=== PATIENT | female | born 1990 | race African-American/Black ===

== ENCOUNTER 2016-08-23 20:13 | Outpatient (CLI) | payer OTHER ==
[~2016-08-23] VITALS: Ht 162.6 cm; Wt 87.0 kg
[~2016-08-23 20:13] MED LIST: ALBINS/ NEB; CLR10 PO; EPP3/2 IM; PRED20TA PO; PRENTAB26 PO; PRT/40 PO; RANI150T3 PO; SNG10 PO; SYMIN160 INH; VNTHFA/IN INH
--- NOTE | 2016-08-23 21:31 | Progress Note ---
Progress Note Observation Note 26 F P0101 at 33.3 weeks with history of irregular contractions all day today. She is afebrile with normal vitals and no shortness of breath or any chest pain. She was recently seen here 08/06/16 and sent to [place] where both her and her baby had RSV. She has history of pre-term delivery and with last due to acute asthma exacerbation and non-reassuring FHT at that time with no premature contractions. She is not on Gabriela protocol. Today admits to loose formed stools with good appetite and no nausea or vomiting. No leakage of fluid or any bleeding noted. Abdomen is soft and non-tender. FHT Cat 1. No RUQ or any abdominal pain with palpations. No edema or calf pain. Cervix long/closed and thick. Probable uterine irritability. Urine dips negative. Will d/c home. Patient to continue fluid hydration and to keep on her side when in bed.
[2016-08-23 22:23] VITALS: Ht 162.6 cm; Wt 87.0 kg
[2016-12-25] MEDS ORDERED: PRT/40 PO (19:05)
[2017-02-25] MEDS ORDERED: albuterol inhaler INH (08:12)
== END 2016-08-23 22:15 | disposition home or self-care (01) ==
LOC: C.OPB 20:13 → C.LD 20:14 → C.OPB 22:15
PROVIDERS: ATTEND Obstetrics & Gynecology
DX: O62.9 Abnormality of forces of labor, unspecified (principal); Z3A.33 33 weeks gestation of pregnancy

== ENCOUNTER 2016-09-03 23:32 | Emergency (ER) | payer OTHER ==
[~2016-09-03] VITALS: Ht 165.1 cm; Wt 88.9 kg
[2016-09-03 23:42] VITALS: TEMP 37.1; Ht 165.1 cm; Wt 88.9 kg
[2016-09-04] MEDS ORDERED: MAGNESIUM SULFATE 1GM / D5W 1 GM BAG IV STA ×2 (00:25→00:40)
[2016-09-04] MEDS ORDERED: SODIUM CHLORIDE 0.9% 1000ML 1,000 ML IV ONE (00:30)
[2016-09-04] MEDS ORDERED: ALBUT/IPRATROP 3MG/0.5MG NEB 3 ML VIAL INH ONE (00:30)
[2016-09-04] MEDS ORDERED: METHYLPREDNISOLONE 125 MG VIAL IV STA (00:40)
[2016-09-04 00:44] VITALS: PULSE 84; O2SAT 98
[2016-09-04 01:00] LABS: BASO % 0.2 %; BASO ABS # 0.01 K/uL (0-0.2); COMPLETE YES; EOS % 2.5 %; HEMATOCRIT 31.3 % (37-47); IG% 0.3 %; LYMPH % 28.8 %; LYMPH ABS # 1.74 K/uL (1.2-3.4); MEAN CELL VOLUME 81.5 fL (80-100); MEAN CORPUSCULAR HEMOGLOBIN 27.3 pg (25-34); MEAN CORPUSCULAR HGB CONC 33.5 g/dl (32-36); MEAN PLATELET VOLUME 9.2 fL (7.4-10.4); MONO % 9.6 %; NEUT % 58.6 %; PLATELET COUNT 233 K/uL (130-400); RED BLOOD COUNT 3.84 M/uL (4.2-5.4); WHITE BLOOD COUNT 6.04 K/uL (4.8-10.8)
[2016-09-04 01:03] LABS: VEN BLD GAS O2 SATURATION 91.8 %; VEN BLOOD GAS BASE EXCESS -1.1 mmol/L
[2016-09-04 01:21] LABS: BUN/CREATININE RATIO 12.1 (10-20); CALCIUM 8.7 mg/dl (8.5-10.1); CREATININE 0.62 mg/dl (0.60-1.20); POTASSIUM 3.5 mmol/L (3.5-5.1)
[2016-09-04 01:24] LABS: ALB/GLOB RATIO 0.8 (0.9-2)
[2016-09-04 01:43] VITALS: BP 109/50; PULSE 84; O2SAT 99
--- NOTE | 2016-09-04 06:34 | DIAGNOSTIC IMAGING REPORT ---
CHEST 2 VIEWS ROUTINE CLINICAL HISTORY: Asthma. . COMPARISON STUDY: Chest radiograph August 05, 2016. TECHNIQUE: The patient's abdomen and pelvis were double shielded due to . PA and lateral chest radiographs were obtained. FINDINGS: Lung volumes are at the lower limits of normal. No pneumothorax or pleural effusion is identified. No consolidation is identified. Mild interstitial prominence is likely within normal limits. Cardiac size is at the upper limits of normal. IMPRESSION: 1. No areas of consolidation to suggest pneumonia. 2. Top normal cardiac size. Electronically signed by: Yair Acharya M.D. 09/04/2016 6:33 AM Dictated Date/Time: 09/04/2016 6:31 AM
--- NOTE | 2016-09-04 22:15 | EMERGENCY ROOM VISIT NOTE ---
History First contact with patient: 00:13 Chief Complaint: COUGH Stated Complaint: ASTHMA,SOB,35WKS PREG,REDUCED MVMT,CALLED LD Nursing Triage Summary: Patient presents with c/o sorethroat, non-productive cough, and runny nose that began 2 days ago. History of Present Illness The patient is a 26 year old female who presents to the Emergency Room with complaints of asthma exacerbation that began to worsen about 2 days ago. The patient has a history of severe asthma, and she is currently 35 weeks . She has been hospitalized at this facility twice during this for asthma exacerbations. She was also transferred to [facility], where she was admitted for around 10 days during the . The patient states that she does have a mild sore throat and her cough is nonproductive. She has been using her inhalers at home without significant improvement of symptoms. She rates her discomfort a 7/10. This is not the worst that her asthma has been , but she is concerned because of her recent history with this. She has used steroids throughout the , but does not have any at home currently. Evidently she has an ATOMIC PROCESS ENGINEER follow-up appointment in about 9 hours in [place]. She does not fever or chills. No abdominal pain, vaginal drainage, discharge , or bleeding. Additionally, the patient was seen, in part, during a [facility] downtime. Additional information for this visit may be noted in scan documents or nursing notes. Review of Systems More than 10 systems were reviewed and otherwise negative with the exception of history of present illness. Past Medical/Surgical History Medical Problems: (1) Asthma, moderate persistent (2) uterine contractions in third trimester, antepartum Surgical Problems: (1) History of Amadou fundoplication Family History FH: lupus MOTHER Social History Smoking Status: Never Smoker Alcohol Use: none Marital Status: Housing Status: lives with roommate Occupation Status: student Current/Historical Medications Scheduled Budesonide/Formoterol Fumarate (Symbicort 160/4.5 Inhaler), 2 PUFFS INH BID Loratadine (Claritin), 10 MG PO DAILY Montelukast Sod (Montelukast Sodium), 10 MG PO HS Multivit/Min/Iron/Fol Ac/Pren ( Vitamin), 1 TAB PO DAILY Pantoprazole (Pantoprazole Sodium), 40 MG PO DAILY Ranitidine Hcl (Zantac), 1 TAB PO BID Scheduled PRN Albuterol Hfa (Ventolin Hfa), 2 PUFFS INH Q4H PRN for Wheezing Albuterol Sulf (Proventil 0.083% 2.5MG/3ML), 1 VIAL NEB Q4H PRN for Wheezing Epinephrine (Epipen 2-Renan), 0.3 MG IM UD PRN for ALLERGIC REACTION Allergies Coded Allergies: Sulfa Drugs (Verified Allergy, Unknown, ., 08/05/16) Sulfamethoxazole w/Trimethoprim (Verified Allergy, Unknown, ., 08/05/16) Physical Exam Vital Signs Date Time Temp Pulse Resp B/P Pulse Ox O2 Delivery O2 Flow Rate FiO2 09/04/16 01:43 84 20 109/50 99 Nebulizer 09/04/16 00:44 84 18 98 Nasal Cannula 2.0 09/03/16 23:47 96 Room Air 09/03/16 23:42 37.1 103 18 107/69 97 Room Air 09/03/16 23:42 96 Room Air Physical Exam VITALS: Vitals are noted on the nurse's note and reviewed by myself. Vital signs stable. GENERAL: Well-developed, well-nourished, black female who is with a dry nonproductive cough. Patient is cooperative with the examination. HEAD: Normocephalic atraumatic. EARS: External ear normal. External auditory canals clear, tympanic membranes pearly ledesma without erythema or effusion bilaterally. EYES: Pupils equal round and reactive to light and accommodation. Conjunctivae without injection, sclerae without icterus. Extraocular movements intact. NOSE: Patent, turbinates without inflammation or discharge. MOUTH: Mucous membranes moist. Tonsils are not enlarged. Pharynx without erythema, blood, or exudate. Uvula midline. Airway patent. NECK: Supple without nuchal rigidity. No lymphadenopathy. No thyromegaly. Cervical spine is nontender. HEART: Regular rate and rhythm without murmurs gallops or rubs. LUNGS: Tight breath sounds bilaterally with scant wheezing ABDOMEN: Positive normal bowel sounds x 4. Soft and nontender. Abdomen is consistent with a 35 week . MUSCULOSKELETAL: No muscle atrophy, erythema, or edema noted. Full range of motion without joint tenderness in all extremities. Medical Decision & Procedures ER Provider Diagnostic Interpretation: CHEST 2 VIEWS ROUTINE CLINICAL HISTORY: Asthma. . COMPARISON STUDY: Chest radiograph August 05, 2016. TECHNIQUE: The patient's abdomen and pelvis were double shielded due to . PA and lateral chest radiographs were obtained. FINDINGS: Lung volumes are at the lower limits of normal. No pneumothorax or pleural effusion is identified. No consolidation is identified. Mild interstitial prominence is likely within normal limits. Cardiac size is at the upper limits of normal. IMPRESSION: 1. No areas of consolidation to suggest pneumonia. 2. Top normal cardiac size. Laboratory Results 09/04/16 00:49 Red Blood Count 3.84, Mean Corpuscular Volume 81.5, Mean Corpuscular Hemoglobin 27.3, Mean Corpuscular Hemoglobin Concent 33.5, Mean Platelet Volume 9.2, Neutrophils (%) (Auto) 58.6, Lymphocytes (%) (Auto) 28.8, Monocytes (%) (Auto) 9.6, Eosinophils (%) (Auto) 2.5, Basophils (%) (Auto) 0.2, Neutrophils # (Auto) 3.54, Lymphocytes # (Auto) 1.74, Monocytes # (Auto) 0.58, Eosinophils # (Auto) 0.15, Basophils # (Auto) 0.01 09/04/16 00:49 Test 09/04/16 00:49 White Blood Count 6.04 K/uL (4.8-10.8) Red Blood Count 3.84 M/uL (4.2-5.4) Hemoglobin 10.5 g/dL (12.0-16.0) Hematocrit 31.3 % (37-47) Mean Corpuscular Volume 81.5 fL (80-100) Mean Corpuscular Hemoglobin 27.3 pg (25-34) Mean Corpuscular Hemoglobin Concent 33.5 g/dl (32-36) Platelet Count 233 K/uL (130-400) Mean Platelet Volume 9.2 fL (7.4-10.4) Neutrophils (%) (Auto) 58.6 % Lymphocytes (%) (Auto) 28.8 % Monocytes (%) (Auto) 9.6 % Eosinophils (%) (Auto) 2.5 % Basophils (%) (Auto) 0.2 % Neutrophils # (Auto) 3.54 K/uL (1.4-6.5) Lymphocytes # (Auto) 1.74 K/uL (1.2-3.4) Monocytes # (Auto) 0.58 K/uL (0.11-0.59) Eosinophils # (Auto) 0.15 K/uL (0-0.5) Basophils # (Auto) 0.01 K/uL (0-0.2) RDW Standard Deviation 51.7 fL (36.4-46.3) RDW Coefficient of Variation 17.1 % (11.5-14.5) Immature Granulocyte % (Auto) 0.3 % Immature Granulocyte # (Auto) 0.02 K/uL (0.00-0.02) Venous Blood pH 7.42 (7.36-7.41) Venous Blood Partial Pressure CO2 37 mmHg (38.0-50.0) Venous Blood Partial Pressure O2 68 mmHg Venous Blood HCO3 23 mmol/L Venous Blood Oxygen Saturation 91.8 % Venous Blood Base Excess -1.1 mmol/L Anion Gap 12.0 mmol/L (3-11) Est Creatinine Clear Calc Drug Dose 152.8 ml/min Estimated GFR () 145.3 Estimated GFR (Non- 125.3 BUN/Creatinine Ratio 12.1 (10-20) Calcium Level 8.7 mg/dl (8.5-10.1) Total Bilirubin 0.2 mg/dl (0.2-1) Aspartate Amino Transf (AST/SGOT) 10 U/L (15-37) Alanine Aminotransferase (ALT/SGPT) 18 U/L (12-78) Alkaline Phosphatase 93 U/L (45-117) Total Protein 6.3 gm/dl (6.4-8.2) Albumin 2.7 gm/dl (3.4-5.0) Globulin 3.6 gm/dl (2.5-4.0) Albumin/Globulin Ratio 0.8 (0.9-2) Medications Administered Medications (Trade) Dose Ordered Sig/Cheryl Route Start Time Stop Time Status Last Admin Dose Admin Sodium Chloride (Nss 1000ml) 1,000 ml @ 999 mls/hr Q1H1M ONCE IV 09/04/16 00:30 09/04/16 01:30 DC 09/04/16 01:02 999 MLS/HR Albuterol/ Ipratropium (Duoneb) 12 ml NOW ONCE INH 09/04/16 00:30 09/04/16 00:31 DC 09/04/16 00:43 12 ML Magnesium Sulfate (Magnesium Sulfate) 1 gm NOW STAT IV 1/26/17 00:40 09/04/16 00:41 DC 09/04/16 01:01 1 GM Methylprednisolone Sodium Succinate (Solu-Medrol IV) 125 mg NOW STAT IV 09/04/16 00:40 09/04/16 00:41 DC 09/04/16 01:02 125 MG ED Course Physical exam and history were performed. Nursing notes and EMR were reviewed. Patient appears to have an acute asthma exacerbation in the third trimester. She has had similar symptoms in the past. She is on nasal cannula on presentation to the room, which is maintaining her saturation around 95%. IV access was established and labs were obtained. The patient was given an hour- long DuoNeb, 125 mg IV Solu-Medrol, and 1 g magnesium IV. The patient was placed on a cardiac cath rn. Chest x-ray was performed. heart tones were performed, and were 145 beats per minute. The patient's blood work is as above and was reviewed. She does not have a significantly elevated white blood cell count. She is mildly anemic, however this is likely due to her status. She does not have a significant electrolyte imbalance. Transaminases are nondiagnostic. VBG was performed and is essentially normal. Chest x-ray does not show acute findings. The patient was reevaluated multiple times throughout her stay here in the department. She had significant improvement of her breath sounds on auscultation following steroids and breathing treatment. The patient was able to sleep comfortably in her ER bed for a few hours without persistent coughing. She was able to maintain an O2 saturation of around 93 or 94% while sleeping. When I awoke her to discuss her results, she was able to maintain a saturation of around 97 or 98% without persisting coughing on room air. We discussed options of care at this point, and decided that discharge home was appropriate. The patient has an ATOMIC PROCESS ENGINEER appointment in a few hours, and evidently she states the fetus growth is significantly below what the expected growth should be at 35 weeks. She is seeing a specialist this morning for multiple tests, which overall I feel are important for her and the child's well- being. I do not wish for her to miss this appointment. I explained that she should keep this appointment, and if OB felt it was appropriate to start her on steroids that would be reasonable. The patient did express a desire to keep this appointment as well, and feels this is reasonable. The patient did feel better while under our care, and was otherwise invited back to the ER with any new, worsening, or concerning symptoms. The chart was completed utilizing [employer] Speech Voice Recognition Software. Grammatical errors, random word insertions, pronoun errors, and incomplete sentences are an occasional consequence of this system due to software limitations, ambient noise, and hardware issues. Any formal questions or concerns about the content, text, or information contained within the body of this dictation should be directly addressed to the provider for clarification. . Medical Decision Differential diagnosis: Etiologies such as infections, reactive airway disease, pneumonia, pneumothorax , COPD, CHF, cardiac ischemia, pulmonary embolism, musculoskeletal, gastrointestinal, as well as others were entertained. Impression Primary Impression: Asthma with acute exacerbation in adult Additional Impression: Third trimester at less than 36 weeks Departure Information Dispostion Home / Self-Care Condition FAIR Referrals Lynette Jorge D.O. (PCP) Forms HOME CARE DOCUMENTATION FORM, IMPORTANT VISIT INFORMATION Patient Instructions My [facility] Problem Qualifiers
[2016-12-25] MEDS ORDERED: PRT/40 PO (19:05)
[2017-02-25] MEDS ORDERED: albuterol inhaler INH (08:12)
== END 2016-09-04 04:25 | disposition home or self-care (01) ==
LOC: C.EDB 23:33
DX: J45.41 Moderate persistent asthma with (acute) exacerbation (principal); O99.513 Diseases of the respiratory system complicating pregnancy, third trimester; Z3A.35 35 weeks gestation of pregnancy

== ENCOUNTER 2016-09-18 17:45 | Outpatient (CLI) | payer OTHER ==
[~2016-09-18] VITALS: Ht 165.1 cm; Wt 86.1 kg
[~2016-09-18 17:45] MED LIST changes: -PRED20TA PO
--- NOTE | 2016-09-18 18:43 | Discharge Instructions ---
Discharge Instructions Admission Reason for Admission: Check Labor Discharge Discharge Diagnosis / Problem: not in labor Discharge Goals Goal(s): Continuing OB care Medications Continue Dispensed Medications: inhaler Activity Recommendations Activity Limitations: as noted below Lifting Limitations: no more than 10 pounds Exercise/Sports Limitations: none May Resume Sexual Activity: when tolerated Shower/Bathe: no limitations Driving or Machine Use: no limitations . Instructions / Follow-Up Instructions / Follow-Up follow up in 1 week Current Hospital Diet Patient's current hospital diet: Full Liquid Diet Discharge Diet Recommended Diet: Regular Diet, Regular OB Diet Pending Studies Studies pending at discharge: no Medical Emergencies . Who to Call and When: Medical Emergencies: If at any time you feel your situation is an emergency, please call 911 immediately. . Non-Emergent Contact Non-Emergency issues call your: Primary Care Provider . . "Provider Documentation" section prepared by Leonardo Gallegos. VTE Core Measure Inpt VTE Proph given/why not?: Treatment not indicated
--- NOTE | 2016-09-18 18:46 | Progress Note ---
Progress Note Here for prolonged monitoring from office. Has asthma and lost her meds. Stable with Cat 1 FHT. Will discharge home. Follow up in 1 week or if any contractions.
--- NOTE | 2016-09-18 18:56 | Discharge Instructions ---
Discharge Instructions Admission Reason for Admission: Check Labor Discharge Discharge Diagnosis / Problem: prolonged monitoring Discharge Goals Goal(s): Improve disease control Activity Recommendations Activity Limitations: resume your previous activity Lifting Limitations: no more than 10 pounds Exercise/Sports Limitations: none, as tolerated May Resume Sexual Activity: when tolerated Shower/Bathe: no limitations Driving or Machine Use: no limitations . Instructions / Follow-Up Instructions / Follow-Up . ACTIVITY RECOMMENDATIONS: * Vaginal rest (no tampons, douching, intercourse) until after doctor 's visit. * control as discussed with doctor. * Wear a bra for 24 hours/day for comfort. SPECIAL CARE INSTRUCTIONS: Medications: * vitamins, one tablet daily. Continue taking until prescription is complete. Call you doctor if: * Temperature greater than or equal to 100.4 degrees F or 38.0 degrees C. * Bleeding becomes heavier than the heaviest part of your period - saturating a sanitary pad within an hour. * Passing large clots. * Unrelieved pain. * Bleeding has a foul smelling odor. * Signs and symptoms of phlebitis: leg pain, warm, red or swollen area on leg. incision has increased pain, redness, swelling, presence of any drainage, or if the incision starts to open up. FOLLOW UP VISIT: If appointment is not already scheduled: Please call doctor's office to schedule a follow-up appointment. Please call your PCP tomorrow AM to get asthma meds refilled. Current Hospital Diet Patient's current hospital diet: Full Liquid Diet Discahrge Diet Recommended Diet: Regular OB Diet Pending Studies Studies pending at discharge: no Medical Emergencies . Who to Call and When: Medical Emergencies: If at any time you feel your situation is an emergency, please call 911 immediately. . Non-Emergent Contact Non-Emergency issues call your: Primary Care Provider . . "Provider Documentation" section prepared by Leonardo Gallegos. VTE Core Measure Inpt VTE Proph given/why not?: Treatment not indicated
[2016-09-18 19:32] VITALS: Ht 165.1 cm; Wt 86.1 kg
[2016-12-25] MEDS ORDERED: PRT/40 PO (19:05)
[2017-02-25] MEDS ORDERED: albuterol inhaler INH (08:12)
== END 2016-09-18 19:20 | disposition home or self-care (01) ==
LOC: C.OPB 17:45 → C.LD 17:45 → C.OPB 19:20
PROVIDERS: ATTEND Obstetrics & Gynecology
DX: Z34.83 Encounter for supervision of other normal pregnancy, third trimester (principal)

== ENCOUNTER 2016-12-25 18:20 | Emergency (ER) | payer OTHER ==
[~2016-12-25] VITALS: Ht 165.1 cm; Wt 80.5 kg
[2016-12-25 18:31] VITALS: TEMP 37.1; Ht 165.1 cm; Wt 80.5 kg
[2016-12-25] MEDS ORDERED: PRENTAB26 PO (19:05)
[2016-12-25] MEDS ORDERED: PANT40TA2 PO (19:05)
[2016-12-25] MEDS ORDERED: RANI150C4 PO (19:05)
[2016-12-25] MEDS ORDERED: MONT1TAB3 PO (19:05)
[2016-12-25] MEDS ORDERED: CALC500T85 PO (19:06)
[2016-12-25] MEDS ORDERED: IBUP-1428 PO (19:10)
--- NOTE | 2016-12-25 21:03 | DIAGNOSTIC IMAGING REPORT ---
PELVIC ULTRASOUND, TRANSABDOMINAL AND TRANSVAGINAL HISTORY: Pain pelvic pain 4 days post IUD placement. Sent for US by Paralegal Specialist COMPARISON: None. FINDINGS: Uterus: Midline with a maximum dimension 9.6 cm. Endometrial thickness 1.4 cm. Intrauterine device is appears to be within the central canal. Endometrial stripe: 1.4 cm. Intrauterine device located centrally Right ovary: 4.1 cm including a 1.4 cm cyst Left ovary: 3.4 cm maximum dimension with a 1.9 cm cyst Miscellaneous:No pelvic free fluid. IMPRESSION: Small bilateral ovarian cysts. Intrauterine device within the central canal, although perhaps slightly low-lying. Electronically signed by: Francisco Jackson M.D. 12/25/2016 9:02 PM Dictated Date/Time: 12/25/2016 9:00 PM
[2016-12-25 21:15] VITALS: BP 109/64; PULSE 68; O2SAT 98
--- NOTE | 2016-12-25 21:25 | EMERGENCY ROOM VISIT NOTE ---
History Report prepared by Arya: Lauryn Alvares Under the Supervision of: Dr. Win Villalobos M.D. First contact with patient: 18:35 Chief Complaint: PELVIC PAIN Stated Complaint: UTERINE PAIN, IUD INSERTION X4 DAYS AGO. History of Present Illness The patient is a 26 year old female who presents to the Emergency Room with complaints of constant pelvic pain since yesterday. The patient had an IUD placed 3 days ago. Yesterday she developed suprapubic pain that she describes as sharp and "really uncomfortable." Her pain rates into her back. She rates her pain as a 4/10 in severity. She has been experiencing normal spotting. The patient has also been getting lightheaded and experiencing a headache. She called her ob-director of video analytics and was advised to come in to the office immediately. The patient was unable to leave work, so she was advised to come to the ED after work for further evaluation. She has been taking Tylenol and Motrin for pain. The patient denies fevers and vomiting. Source of History: patient Onset: yesterday Position: pelvis Symptom Intensity: 4/10 Quality: sharp Timing: constant Modifying Factors (Worsening): other (recent IUD placement) Modifying Factors (Relieving): tylenol, ibuprofen Associated Symptoms: + back pain, + headache, No fevers, No vomiting Note: Pt notes lightheadedness. Review of Systems See HPI for pertinent positives & negatives. A total of 6 systems reviewed and were otherwise negative. Past Medical & Surgical Medical Problems: (1) Asthma, moderate persistent (2) uterine contractions in third trimester, antepartum Surgical Problems: (1) History of Amadou fundoplication Family History FH: lupus MOTHER Social History Smoking Status: Never Smoker Alcohol Use: none Marital Status: Housing Status: lives with roommate Occupation Status: student Current/Historical Medications Scheduled Calcium (Ra Calcium), 500 MG PO DAILY Montelukast Sodium (Singulair), 10 MG PO QAM Multivit/Min/Iron/Fol Ac/Pren ( Vitamin), 1 TAB PO DAILY Pantoprazole (Pantoprazole Sodium), 40 MG PO DAILY Ranitidine Hcl (Ranitidine Hcl), 150 MG PO QAM Scheduled PRN Ibuprofen (Motrin), 800 MG PO Q8H PRN for Pain Allergies Coded Allergies: Sulfa Drugs (Verified Allergy, Unknown, HIVES, 12/25/16) Sulfamethoxazole w/Trimethoprim (Verified Allergy, Unknown, HIVES, 12/25/16 ) Physical Exam Vital Signs Date Time Temp Pulse Resp B/P Pulse Ox O2 Delivery O2 Flow Rate FiO2 12/25/16 21:15 68 18 109/64 98 Room Air 12/25/16 18:31 37.1 82 20 117/70 99 Room Air Physical Exam GENERAL: Patient is well appearing and in mild distress. NECK: No stridor, no adenopathy, no meningismus, trachea is midline. LUNGS: No dyspnea. Clear to auscultation and equal bilaterally. No wheeze, no rhonchi. HEART: Regular rate and rhythm. No murmurs, rubs, gallops appreciated. ABDOMEN: Soft, vague suprapubic abdominal tenderness to palpation, bowel sounds positive, no masses appreciated, no peritonitis. PELVIC: Normal external. Scant white discharge posterior vaginal canal, no discharge appreciated from cervix, strings intact from cervix. No cervical motion tenderness. BACK: No midline tenderness, no CVA tenderness EXTREMITIES: Normal motion all extremities, no cyanosis, no edema. NEUROLOGIC: Alert and oriented, no acute motor or sensory deficits, no focal weakness, cranial nerves grossly intact. SKIN: No rash, no jaundice, no diaphoresis. Medical Decision & Procedures ER Provider Diagnostic Interpretation: Radiology results and stated below per my review and radiologist interpretation: PELVIC ULTRASOUND, TRANSABDOMINAL AND TRANSVAGINAL HISTORY: Pain pelvic pain 4 days post IUD placement. Sent for US by Facialist COMPARISON: None. FINDINGS: Uterus: Midline with a maximum dimension 9.6 cm. Endometrial thickness 1.4 cm. Intrauterine device is appears to be within the central canal. Endometrial stripe: 1.4 cm. Intrauterine device located centrally Right ovary: 4.1 cm including a 1.4 cm cyst Left ovary: 3.4 cm maximum dimension with a 1.9 cm cyst Miscellaneous:No pelvic free fluid. IMPRESSION: Small bilateral ovarian cysts. Intrauterine device within the central canal, although perhaps slightly low-lying. Electronically signed by: Francisco Jackson M.D. 12/25/2016 9:02 PM Dictated Date/Time: 12/25/2016 9:00 PM ED Course 1835: The patient was evaluated in room A2. A complete history and physical exam was performed. 1937: I reassessed the patient. She had returned from ultrasound and I performed a pelvic exam. Please see the procedure note for my findings. 2118: I reassessed the patient at this time. She is feeling better and resting comfortably. I discussed the results and treatment plan with the patient. I answered all pertaining questions that she had. She expressed understanding and verbalized agreement. The patient will be discharged home. She will follow-up with ob-director of video analytics in the next few days. Medical Decision Differential: Appendicitis, Ovarian Torsion, PID, Tubo-ovarian Abscess, IUD pain /misplacement, amongst other pathologies entertained. 26 yr old female arrives with complaint of pelvic pain radiating to back. Exam with some mild white non-malodorous discharge. Suspect this is mild reaction/ normal as no erythema either. Not coming from Cervix by examination. She has no CMT nor evidence of acute infection. US with IUD in proper position other than possibly a bit low. Without fevers nor other findings I do not feel that imaging necessary currently. Impression Primary Impression: Pain due to intrauterine contraceptive device (IUD) Scribe Attestation The scribe's documentation has been prepared under my direction and personally reviewed by me in its entirety. I confirm that the note above accurately reflects all work, treatment, procedures, and medical decision making performed by me. Departure Information Dispostion Home / Self-Care Referrals Lynette Jorge D.O. (PCP) Forms HOME CARE DOCUMENTATION FORM, IMPORTANT VISIT INFORMATION, WORK / SCHOOL INSTRUCTIONS Patient Instructions My [facility] Additional Instructions Monitor for worsening of pain, fevers, vomiting, passing out or other concerns. Please follow up with INFANT TEACHER in the next few days. Problem Qualifiers Primary Impression: Pain due to intrauterine contraceptive device (IUD) Encounter type: initial encounter Qualified Codes: T83.84XA - Pain due to genitourinary prosthetic devices, implants and grafts, initial encounter
[2017-02-25] MEDS ORDERED: albuterol inhaler INH (08:12)
== END 2016-12-25 21:39 | disposition home or self-care (01) ==
LOC: C.EDB 18:21 → C.EDA 21:39
DX: T83.84XA Pain due to genitourinary prosthetic devices, implants and grafts, initial encounter (principal); Y83.1 Surgical operation with implant of artificial internal device as the cause of abnormal reaction of the patient, or of later complication, without mention of misadventure at the time of the procedure; J45.40 Moderate persistent asthma, uncomplicated

== ENCOUNTER 2017-02-12 22:35 | Emergency (ER) | payer OTHER ==
[~2017-02-12] VITALS: Ht 165.1 cm; Wt 81.6 kg
[~2017-02-12 22:35] MED LIST changes: -ALBINS/ NEB; +CALC500T85 PO; -CLR10 PO; -EPP3/2 IM; +IBUP-1428 PO; +MONT1TAB3 PO; +RANI150C4 PO; -RANI150T3 PO; -SNG10 PO; -SYMIN160 INH; -VNTHFA/IN INH
[2017-02-12 22:38] VITALS: TEMP 36.8; Ht 165.1 cm; Wt 81.6 kg
[2017-02-12] MEDS ORDERED: FENU1CAP2 PO (23:13)
[2017-02-12] MEDS ORDERED: ACETAMINOPHEN 500 MG TAB PO STA (23:22)
--- NOTE | 2017-02-12 23:22 | EMERGENCY ROOM VISIT NOTE ---
History Report prepared by Arya: Jeovanny Hamilton Under the Supervision of: Dr. Gladys Stevens D.O. First contact with patient: 22:59 Chief Complaint: SYNCOPE Stated Complaint: FAINTING, SPRAINED LEFT ANKLE Nursing Triage Summary: Patient presents with c/o left ankle pain after twisting it this morning and syncopal episode x1 and near syncopal episode x2 History of Present Illness The patient is a 26 year old female who presents to the Emergency Room with complaints of one episode of syncope that occurred this morning. At this time, she states that she "twisted" her left ankle when she was walking down a hill to catch the bus. After she inverted her left ankle, she fell to the ground and scraped her knees. About 20 seconds later, she was sitting on the ground when her vision went black. She lost consciousness for what she thinks was less than 1 minute. After this, she felt relatively normal. She then experienced two episodes of near syncope that occurred throughout her day, with the most recent one being a couple of hours ago. She notes that she did eat and drink normally today. She also states she did not do anything abnormal as well. She has a past medical history of asthma. She has two children. She is currently breast feeding one of them. She states that there is no chance that she is . She also notes that she has been having cognitive symptoms that she was supposed to see her PCP about last weekend, but did not have a ride. She states that these include being forgetful with mediocre tasks such as why she got milk out of the fridge, an occasional stutter to her voice, and loss of depth perception. She also states that she could not focus when tried to drive. She does not know when all of these started, but noticed it a couple of days ago. She denies any fevers. Source of History: patient Onset: This morning Position: other (global) Symptom Intensity: moderate Quality: other (syncope) Timing: resolved Associated Symptoms: No fevers Note: She is having left ankle pain. She is also having several cognitive symptoms ( See HPI for more information). Review of Systems See HPI for pertinent positives & negatives. A total of 10 systems reviewed and were otherwise negative. Past Medical & Surgical Medical Problems: (1) Asthma, moderate persistent (2) uterine contractions in third trimester, antepartum Surgical Problems: (1) History of Amadou fundoplication Family History Cancer Diabetes mellitus FH: lupus MOTHER Heart disease Hypertension Social History Smoking Status: Never Smoker Smokeless Tobacco Use: No Alcohol Use: none Drug Use: none Marital Status: Housing Status: lives with family Occupation Status: employed Current/Historical Medications Scheduled Fenugreek (Trigonella Foenum-G (Fenugreek), 1 CAP PO DAILY Multivit/Min/Iron/Fol Ac/Pren ( Vitamin), 1 TAB PO DAILY Allergies Coded Allergies: Sulfa Drugs (Verified Allergy, Unknown, HIVES, 02/12/17) Sulfamethoxazole w/Trimethoprim (Verified Allergy, Unknown, HIVES, 02/12/17) Physical Exam Vital Signs Date Time Temp Pulse Resp B/P (MAP) Pulse Ox O2 Delivery O2 Flow Rate FiO2 02/13/17 03:12 59 16 107/69 98 02/13/17 01:18 68 16 122/74 100 Room Air 02/12/17 23:34 65 02/12/17 23:34 66 18 128/75 99 Room Air 02/12/17 23:23 99 Room Air 02/12/17 22:38 36.8 70 16 115/57 98 Room Air Physical Exam HEENT: Head - normocephalic and atraumatic. Pupils are equal, round, and reactive to light. Extraocular eye muscles are intact and sclera are anicteric. Ears - bilaterally patent canals with noninjected tympanic membranes and no evidence of hemotympanum. Nose - moist nasal mucosa without discharge. Mouth - moist buccal mucosa. Oropharynx is nonerythematous and there is no tonsillar exudate or edema noted. Neck: Supple; no JVD, nuchal rigidity, cervical lymphadenopathy, or auscultated bruits. Heart: Regular rate and rhythm. There is a normal S1 and S2 with no murmurs, clicks, or gallops appreciated. Lungs: Clear to auscultation bilaterally with no wheezes, rales, or rhonchi. Abdomen: Soft, completely nontender, nondistended, with good bowel sounds. There are no palpable pulsatile masses or hepatosplenomegaly. There is no guarding, rigidity, or rebound noted. Extremities: No evidence of cyanosis or clubbing. There are easily palpable peripheral pulses. There is pain over the inferior aspect of the lateral malleolus with edema in the same area on the left foot. No pain over the fifth metatarsal. Neuro: The patient is awake and alert, oriented to day, time, and place. Muscle strength is 5/5 in all 4 extremities. The patient has equal track coach strength and equal pedal push and pull. There are no cerebellar signs. Medical Decision & Procedures ER Provider Diagnostic Interpretation: Radiology results as stated below per my review and the radiologist's interpretation: X-RAY LEFT ANKLE: No obvious fracture. Ankle mortis intact. Per me. MRI HEAD: Moderate scattered subcortical and deep white matter T2/FLAIR hyperintensities, nonspecific but differential includes demyelinating disease. Evaluation for active demyelination limited by lack of intravenous contrast. No diffusion restriction. 5 mm pineal cystic lesion. Otherwise, no evidence of mass. No mass effect. No hydrocephalus. Mild mucosal thickening ethmoid air cells. Radiologist: Win Moore MD Laboratory Results 02/12/17 23:30 Red Blood Count 4.81, Mean Corpuscular Volume 85.0, Mean Corpuscular Hemoglobin 29.1, Mean Corpuscular Hemoglobin Concent 34.2, Mean Platelet Volume 9.4, Neutrophils (%) (Auto) 50.7, Lymphocytes (%) (Auto) 39.9, Monocytes (%) (Auto) 4.4, Eosinophils (%) (Auto) 4.2, Basophils (%) (Auto) 0.6, Neutrophils # (Auto) 5.31, Lymphocytes # (Auto) 4.18, Monocytes # (Auto) 0.46, Eosinophils # (Auto) 0.44, Basophils # (Auto) 0.06 02/12/17 23:30 Test 02/12/17 23:22 02/12/17 23:30 02/13/17 01:10 Urine Test NEG (NEG) White Blood Count 10.47 K/uL (4.8-10.8) Red Blood Count 4.81 M/uL (4.2-5.4) Hemoglobin 14.0 g/dL (12.0-16.0) Hematocrit 40.9 % (37-47) Mean Corpuscular Volume 85.0 fL (80-100) Mean Corpuscular Hemoglobin 29.1 pg (25-34) Mean Corpuscular Hemoglobin Concent 34.2 g/dl (32-36) Platelet Count 289 K/uL (130-400) Mean Platelet Volume 9.4 fL (7.4-10.4) Neutrophils (%) (Auto) 50.7 % Lymphocytes (%) (Auto) 39.9 % Monocytes (%) (Auto) 4.4 % Eosinophils (%) (Auto) 4.2 % Basophils (%) (Auto) 0.6 % Neutrophils # (Auto) 5.31 K/uL (1.4-6.5) Lymphocytes # (Auto) 4.18 K/uL (1.2-3.4) Monocytes # (Auto) 0.46 K/uL (0.11-0.59) Eosinophils # (Auto) 0.44 K/uL (0-0.5) Basophils # (Auto) 0.06 K/uL (0-0.2) RDW Standard Deviation 47.0 fL (36.4-46.3) RDW Coefficient of Variation 15.0 % (11.5-14.5) Immature Granulocyte % (Auto) 0.2 % Immature Granulocyte # (Auto) 0.02 K/uL (0.00-0.02) Anion Gap 7.0 mmol/L (3-11) Est Creatinine Clear Calc Drug Dose 102.0 ml/min Estimated GFR () 104.4 Estimated GFR (Non- 90.1 BUN/Creatinine Ratio 18.1 (10-20) Calcium Level 9.6 mg/dl (8.5-10.1) Total Bilirubin 0.2 mg/dl (0.2-1) Aspartate Amino Transf (AST/SGOT) 19 U/L (15-37) Alanine Aminotransferase (ALT/SGPT) 27 U/L (12-78) Alkaline Phosphatase 105 U/L (45-117) Total Protein 7.7 gm/dl (6.4-8.2) Albumin 4.0 gm/dl (3.4-5.0) Globulin 3.7 gm/dl (2.5-4.0) Albumin/Globulin Ratio 1.1 (0.9-2) Thyroid Stimulating Hormone (TSH) 1.820 uIu/ml (0.300-4.500) Lyme Disease IgG Antibody NEG (NEG) Lyme Disease IgM Antibody NEG (NEG) Urine Color YELLOW Urine Appearance CLEAR (CLEAR) Urine pH 5.5 (4.5-7.5) Urine Specific [place] 1.026 (1.000-1.030) Urine Protein NEG (NEG) Urine Glucose (UA) NEG (NEG) Urine Ketones TRACE (NEG) Urine Occult Blood 1+ (NEG) Urine Nitrite NEG (NEG) Urine Bilirubin NEG (NEG) Urine Urobilinogen NEG (NEG) Urine Leukocyte Esterase NEG (NEG) Urine WBC (Auto) 1-5 /hpf (0-5) Urine RBC (Auto) 0-4 /hpf (0-4) Urine Hyaline Casts (Auto) 1-5 /lpf (0-5) Urine Epithelial Cells (Auto) >30 /lpf (0-5) Urine Bacteria (Auto) NEG (NEG) Laboratory results per my review. Medications Administered Medications (Trade) Dose Ordered Sig/Cherly Route Start Time Stop Time Status Last Admin Dose Admin Acetaminophen (Tylenol Tab) 1,000 mg NOW STAT PO 02/12/17 23:22 02/12/17 23:26 DC 02/12/17 23:39 1,000 MG Procedure Tylenol Tab 1000 mg PO ECG Indication: syncope Rate (beats per minute): 66 Rhythm: normal sinus Findings: no acute ischemic change, no ectopy ED Course 2259: Past medical records reviewed. The patient was evaluated in room A10. A complete history and physical exam was performed. An IV lock was initiated and labs are drawn as above. 2322: Ordered Tylenol Tab 1000 mg PO. The patient went for an x-ray of the left ankle. This is described above. She then went for an MRI of her brain to rule out demyelinating disorder. 0151: I attempted to reevaluate the patient at this time. She was pumping breast milk. I will come back later. 0210: I finished the patient's neurologic exam at this time. It was normal. She informed me that her first cognitive symptoms occurred in the middle of her most recent . They were also worse last week than this week. 0220: I spoke with Dr. Thakur - Neurology, at this time. We discussed the patient 's case. He said that this sounds concerning for possible multiple sclerosis. She needs to call his office in the morning to have further testing. 0300: Upon reevaluation, the patient is resting. I discussed findings and results with her. She verbalized agreement of the treatment plan. She was discharged home. Medical Decision The patient is a 26 year old female who presents to the ED with syncope. Differential diagnosis includes ankle sprain, dehydration, hypoglycemia, electrolyte imbalance, intracranial mass, MS, cardiac dysrhythmia, and lyme disease. I attest that I have personally reviewed the patient's current medication list. Patient was found to have normal blood pressure on screening and does not require follow-up. Laboratory Results: No leukocytosis, stable H&H, normal TSH, normal glucose and renal function, negative LFTs, urine is positive for ketones and 1+ blood, and lyme is negative. Lyme testing was negative. Laboratory studies were unremarkable. MRI of the brain did show signs concerning for a demyelinating disorder. I discussed these findings with the patient. I consulted with Dr. Thakur. We have agreed that the patient go home as she is breast-feeding her infant. She will follow up with his office in the morning for additional outpatient testing the patient is not currently driving. I recommended that she take great care with ambulation as well as taking care of the infant. Consults Time Called: [phone] Consulting Physician: Dr. Thakur - Neurology Returned Call: [phone] We discussed the patient's case. Please see the ED course for more information. Impression Primary Impression: Demyelinating changes in brain Additional Impression: Left ankle sprain Scribe Attestation The scribe's documentation has been prepared under my direction and personally reviewed by me in its entirety. I confirm that the note above accurately reflects all work, treatment, procedures, and medical decision making performed by me. Departure Information Dispostion Home / Self-Care Referrals Lynette Jorge D.O. (PCP) Enrique Thakru M.D. Forms HOME CARE DOCUMENTATION FORM, IMPORTANT VISIT INFORMATION Patient Instructions ED Sprain Ankle, My [facility] Additional Instructions Rest. Take care with walking and caring for your baby. Keep the left ankle elevated and iced. Follow up with Dr. Thakur today for brain findings on MRI Problem Qualifiers
[2017-02-12 23:23] VITALS: O2SAT 99
[2017-02-12 23:42] LABS: BASO % 0.6 %; BASO ABS # 0.06 K/uL (0-0.2); COMPLETE YES; EOS % 4.2 %; HEMATOCRIT 40.9 % (37-47); IG% 0.2 %; LYMPH % 39.9 %; LYMPH ABS # 4.18 K/uL (1.2-3.4); MEAN CORPUSCULAR HEMOGLOBIN 29.1 pg (25-34); MEAN CORPUSCULAR HGB CONC 34.2 g/dl (32-36); MEAN PLATELET VOLUME 9.4 fL (7.4-10.4); MONO % 4.4 %; NEUT % 50.7 %; PLATELET COUNT 289 K/uL (130-400); RED BLOOD COUNT 4.81 M/uL (4.2-5.4); WHITE BLOOD COUNT 10.47 K/uL (4.8-10.8)
[2017-02-12 23:59] LABS: BUN/CREATININE RATIO 18.1 (10-20); CALCIUM 9.6 mg/dl (8.5-10.1); CREATININE 0.89 mg/dl (0.60-1.20); POTASSIUM 3.6 mmol/L (3.5-5.1)
[2017-02-13 00:10] LABS: ALB/GLOB RATIO 1.1 (0.9-2); THYROID STIMULATING HORMONE 1.82 uIu/ml (0.300-4.500)
[2017-02-13 01:26] LABS: LYME DISEASE AB IGG NEG (NEG); LYME DISEASE AB IGM NEG (NEG)
[2017-02-13 01:33] LABS: URINE APPEARANCE CLEAR (CLEAR); URINE BILIRUBIN NEG (NEG); URINE COLOR YELLOW; URINE EPITHELIAL CELL AUTO >30 /lpf (0-5); URINE NITRITE NEG (NEG); URINE PH 5.5 (4.5-7.5); URINE SPECIFIC GRAVITY 1.026 (1.000-1.030); UROBILINOGEN NEG (NEG)
[2017-02-13 01:35] LABS: MANUAL MICROSCOPIC REQUIRED? NO; REVIEW REQ? NO
[2017-02-13 03:12] VITALS: BP 107/69; PULSE 59; O2SAT 98
--- NOTE | 2017-02-13 06:13 | DIAGNOSTIC IMAGING REPORT ---
LEFT ANKLE MIN 3 VIEWS ROUTINE CLINICAL HISTORY: twisted ankle COMPARISON: None. DISCUSSION: The bones and joint spaces appear intact. There is no evidence of fracture, dislocation or bony disease. There is no evidence for soft tissue swelling. IMPRESSION: Negative study. Electronically signed by: Francisco Jackson M.D. 02/13/2017 6:11 AM Dictated Date/Time: 02/13/2017 6:11 AM
--- NOTE | 2017-02-13 07:16 | DIAGNOSTIC IMAGING REPORT ---
BRAIN W/O FOR MS CLINICAL HISTORY: 26 years-old Female presenting with eval for mass or MS. TECHNIQUE: Multisequence, multiplanar MR imaging of the brain was performed without the use of intravenous contrast. COMPARISON: None. FINDINGS: Normal midline sagittal structures. No restricted diffusion to suggest acute ischemia. Numerous foci of T2/FLAIR hyperintensity throughout the subcortical white matter primarily in the frontoparietal regions including the perimedian superior frontal lobe. These spare the subcortical U fibers. The periventricular regions, including the ependyma, corpus callosum as well as the temporal lobe white matter, are uninvolved. Lack of intravenous contrast limits evaluation. Normal signal intensity of ledesma matter with preserved ledesma-white matter differentiation. 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 No hydrocephalus. No hemorrhage or extra-axial fluid collection. Bone marrow signal intensity within the calvarium is normal for age. Paranasal sinuses and mastoid air cells grossly clear. Upper cervical spinal cord normal. IMPRESSION: 1. Numerous abnormal foci of T2/FLAIR hyperintensity in the subcortical white matter of the frontoparietal regions. The periventricular regions are largely spared, which would not be characteristic of multiple sclerosis. In addition to the possibility of demyelinating disease, differential considerations include Lyme disease, acute disseminated encephalomyelitis, and vasculitis among other etiologies. Electronically signed by: Conrado Long 02/13/2017 7:14 AM Dictated Date/Time: 02/13/2017 7:00 AM
[2017-02-25] MEDS ORDERED: albuterol inhaler INH (08:12)
== END 2017-02-13 03:18 | disposition home or self-care (01) ==
LOC: C.EDB 22:36 → C.EDA 02-13 03:18
DX: S93.402A Sprain of unspecified ligament of left ankle, initial encounter (principal); M25.572 Pain in left ankle and joints of left foot; X50.9XXA Other and unspecified overexertion or strenuous movements or postures, initial encounter; Y92.89 Other specified places as the place of occurrence of the external cause; R55 Syncope and collapse; G37.8 Other specified demyelinating diseases of central nervous system

== ENCOUNTER 2017-02-19 16:08 | Emergency (ER) | payer OTHER ==
[~2017-02-19] VITALS: Ht 165.1 cm; Wt 81.3 kg
[~2017-02-19 16:08] MED LIST changes: -CALC500T85 PO; +FENU1CAP2 PO; -IBUP-1428 PO; -MONT1TAB3 PO; -PRT/40 PO; -RANI150C4 PO
[2017-02-19 16:10] VITALS: TEMP 36.9; Ht 165.1 cm; Wt 81.3 kg
[2017-02-19] MEDS ORDERED: KETOROLAC TROMETHAMINE 30 MG/ML VIAL IV STA (16:30)
[2017-02-19] MEDS ORDERED: PROCHLORPERAZINE 5 MG/ML 2 ML VIAL IV STA (16:30)
[2017-02-19] MEDS ORDERED: SODIUM CHLORIDE 0.9% 1000ML 1,000 ML IV STA (16:30)
[2017-02-19] MEDS ORDERED: DiphenhydrAMINE HCL 50 MG/ML VIAL IV STA (16:30)
[2017-02-19] MEDS ORDERED: MAGNESIUM SULFATE 1GM / D5W 1 GM BAG IV STA (16:35)
--- NOTE | 2017-02-19 16:43 | EMERGENCY ROOM VISIT NOTE ---
History Report prepared by Arya: Flavio Balderrama Under the Supervision of: Dr. Grant Askew M.D. First contact with patient: 16:19 Chief Complaint: REFERRED BY DOCTOR Stated Complaint: COGNITIVE ISSUES- PHYSICIAN REFERRED History of Present Illness The patient is a 26 year old female who presents to the Emergency Room with complaints of a constant right sided headache starting this morning. The patient states that this pain is throbbing, and wrapping around her head into her left shoulder. She is additionally complaining of joint pains. She additionally states that she recently fell, and she thought that she fractured her ankle. She states that she got a recent MRI which showed some demyelination. The patient additionally states that she has been walking into [place]. Source of History: patient Onset: this morning Position: head Quality: other (throbbing) Timing: constant Note: Associated symptoms: Joint pains Review of Systems See HPI for pertinent positives & negatives. A total of 10 systems reviewed and were otherwise negative. Past Medical & Surgical Medical Problems: (1) Asthma, moderate persistent (2) uterine contractions in third trimester, antepartum Surgical Problems: (1) History of Amadou fundoplication Family History Cancer Diabetes mellitus FH: lupus MOTHER Heart disease Hypertension Social History Smoking Status: Never Smoker Alcohol Use: none Drug Use: none Marital Status: Housing Status: lives with family Occupation Status: employed Current/Historical Medications Scheduled Fenugreek (Trigonella Foenum-G (Fenugreek), 1 CAP PO DAILY Multivit/Min/Iron/Fol Ac/Pren ( Vitamin), 1 TAB PO DAILY Allergies Coded Allergies: Sulfa Drugs (Verified Allergy, Unknown, HIVES, 02/19/17) Sulfamethoxazole w/Trimethoprim (Verified Allergy, Unknown, HIVES, 02/19/17 ) Physical Exam Vital Signs Date Time Temp Pulse Resp B/P (MAP) Pulse Ox O2 Delivery O2 Flow Rate FiO2 02/19/17 18:28 81 18 101/55 97 02/19/17 16:10 36.9 90 18 112/74 97 Room Air Physical Exam GENERAL: Patient is a healthy-appearing well-nourished female HEAD: Normocephalic atraumatic EYES: Ocular movements intact pupils equal and react to light OROPHARYNX mucous membranes are moist no exudates present no erythema or edema present NECK: Supple no nuchal rigidity CHEST: Good equal expansion LUNGS: Clear and equal to auscultation CARDIAC: Normal S1 and S2 ABDOMEN: Soft nontender no guarding BACK: No CVA tenderness EXTREMITIES: No pain upon palpation normal muscle strength in all groups no clubbing cyanosis or edema NEURO: Patient is following commands and answering questions appropriately. Alert and oriented x3 Cranial Nerves 2-12 grossly intact Medical Decision & Procedures ER Provider Diagnostic Interpretation: CT results as stated below per my review and radiologist interpretation: CT OF THE HEAD WITHOUT CONTRAST CLINICAL HISTORY: Severe headache. COMPARISON STUDY: MRI of the brain February 13, 2017. CT DOSE: 537.48 mGy.cm TECHNIQUE: Helical axial images of the head were obtained without IV contrast. Automated exposure control was utilized for the study. FINDINGS: No acute intracranial hemorrhage, midline shift or mass effect is present. Ventricular system is normal. Basilar cisterns are patent. No extra axial collections are present. Numerous white matter hypodensities correspond to T2 hyperintense foci on MRI of February 13, 2017. Allowing for differences in technique, the findings are similar. There are no CT findings to suggest acute dural sinus thrombosis or acute territorial infarct. There are no significant calvarial abnormalities. There is mild mucosal thickening of the ethmoid sinuses. IMPRESSION: 1. No acute intracranial hemorrhage. 2. Numerous white matter hypodensities which correspond to the foci of signal abnormality on MRI of February 13, 2017. These remain nonspecific. Allowing for differences in technique, no significant change is noted. Electronically signed by: Yair Acharya M.D. 02/19/2017 5:30 PM Dictated Date/Time: 02/19/2017 5:21 PM Laboratory Results 02/19/17 16:45 Red Blood Count 4.73, Mean Corpuscular Volume 84.8, Mean Corpuscular Hemoglobin 28.5, Mean Corpuscular Hemoglobin Concent 33.7, Mean Platelet Volume 9.6, Neutrophils (%) (Auto) 65.3, Lymphocytes (%) (Auto) 23.2, Monocytes (%) (Auto) 7.1, Eosinophils (%) (Auto) 3.9, Basophils (%) (Auto) 0.3, Neutrophils # (Auto) 6.92, Lymphocytes # (Auto) 2.45, Monocytes # (Auto) 0.75, Eosinophils # (Auto) 0.41, Basophils # (Auto) 0.03 02/19/17 16:45 Test 02/19/17 16:45 White Blood Count 10.58 K/uL (4.8-10.8) Red Blood Count 4.73 M/uL (4.2-5.4) Hemoglobin 13.5 g/dL (12.0-16.0) Hematocrit 40.1 % (37-47) Mean Corpuscular Volume 84.8 fL (80-100) Mean Corpuscular Hemoglobin 28.5 pg (25-34) Mean Corpuscular Hemoglobin Concent 33.7 g/dl (32-36) Platelet Count 306 K/uL (130-400) Mean Platelet Volume 9.6 fL (7.4-10.4) Neutrophils (%) (Auto) 65.3 % Lymphocytes (%) (Auto) 23.2 % Monocytes (%) (Auto) 7.1 % Eosinophils (%) (Auto) 3.9 % Basophils (%) (Auto) 0.3 % Neutrophils # (Auto) 6.92 K/uL (1.4-6.5) Lymphocytes # (Auto) 2.45 K/uL (1.2-3.4) Monocytes # (Auto) 0.75 K/uL (0.11-0.59) Eosinophils # (Auto) 0.41 K/uL (0-0.5) Basophils # (Auto) 0.03 K/uL (0-0.2) RDW Standard Deviation 46.0 fL (36.4-46.3) RDW Coefficient of Variation 14.8 % (11.5-14.5) Immature Granulocyte % (Auto) 0.2 % Immature Granulocyte # (Auto) 0.02 K/uL (0.00-0.02) Erythrocyte Sedimentation Rate 10 mm/hr (0-21) Anion Gap 8.0 mmol/L (3-11) Est Creatinine Clear Calc Drug Dose 101.8 ml/min Estimated GFR () 104.4 Estimated GFR (Non- 90.1 BUN/Creatinine Ratio 14.4 (10-20) Calcium Level 9.2 mg/dl (8.5-10.1) Total Bilirubin 0.2 mg/dl (0.2-1) Direct Bilirubin < 0.1 mg/dl (0-0.2) Aspartate Amino Transf (AST/SGOT) 12 U/L (15-37) Alanine Aminotransferase (ALT/SGPT) 24 U/L (12-78) Alkaline Phosphatase 121 U/L (45-117) C-Reactive Protein 0.66 mg/dl (0-0.29) Total Protein 7.4 gm/dl (6.4-8.2) Albumin 3.7 gm/dl (3.4-5.0) Lipase 164 U/L (73-393) Lyme Disease IgG Antibody NEG (NEG) Lyme Disease IgM Antibody NEG (NEG) Labs reviewed by ED physician. Medications Administered Medications (Trade) Dose Ordered Sig/Cheryl Route Start Time Stop Time Status Last Admin Dose Admin Sodium Chloride 1,000 ml @ 999 mls/hr Q1H1M STAT IV 02/19/17 16:30 02/19/17 17:30 DC 02/19/17 16:30 999 MLS/HR Ketorolac Tromethamine (Toradol Inj) 30 mg NOW STAT IV 02/19/17 16:30 02/19/17 16:32 DC 02/19/17 16:30 30 MG Diphenhydramine HCl (Benadryl Inj) 25 mg NOW STAT IV 02/19/17 16:30 02/19/17 16:32 DC 02/19/17 16:59 25 MG Prochlorperazine Edisylate (Compazine Inj) 5 mg NOW STAT IV 02/19/17 16:30 02/19/17 16:32 DC 02/19/17 16:30 5 MG Dexamethasone Sodium Phosphate (Decadron Inj) 10 mg NOW ONCE IV 02/19/17 16:45 02/19/17 16:46 DC 02/19/17 17:03 10 MG Magnesium Sulfate (Magnesium Sulfate) 1 gm NOW STAT IV 02/19/17 16:35 02/19/17 16:38 DC 02/19/17 17:04 1 GM ED Course 1629: Past medical records reviewed. The patient was evaluated in room B12. A complete history and physical examination was performed. 1630: Compazine Inj 5mg IV, Benadryl Inj 25mg IV, Toradol Inj 30mg IV, Sodium Chloride 1000 ml @ 999 mls/hr IV 1635: Magnesium Sulfate 1gm IV 1645: Decadron Inj 10mg IV 1745: Upon reexamination the patient is feeling well. I discussed results and treatment plan with the patient. She verbalizes agreement and understanding. The patient is ready for discharge. Medical Decision Differential diagnosis: Etiologies such as migraine headache, meningitis, sinusitis, CO exposure, ICH, SAH, infection, tumor, headache, sinus thrombosis, arterial dissection, as well as others were entertained. Resident Physician Supervision Note: I was present with Dr. Parsons during the history and exam. I discussed the case with the resident and agree with the findings and plan as documented in the note. Documented By: Grant Askew I recommended that this patient undergo a lumbar puncture however she is refusing it. She feels that this is not her worst headache of her life and she is feeling better with Toradol normal saline bolus Compazine and Benadryl. She also denies any problems at home with the baby and denies any suicidal or homicidal ideation. The patient has demonstrated no significant defect in the decision-making capacity to make choices. The encounter had a good level of communication with language the patient can easily understand. I feel trust was present and conveyed that our action/intentions were the best interest of the patient. The patient was given all relevant information and reiterated the explained risks and benefits. The patient explained the reasoning for refusing treatment clearly. The patient possesses and expresses a set of values and goals, the ability to communicate and understand, and an ability to reason and deliberate. Despite acting emphatically, attentively and with the utmost patient's the patient declined further treatment. I offered options, negotiated, and explored every reasonable choice. I must respect the patient's autonomy and that they feel that their choices are best for them despite the associated risks of leaving without completing the evaluation. The patient was informed about the findings as listed above. All questions were answered and he was pleased with the treatment. Return instructions were outlined and the patient was discharged in stable condition. Impression Primary Impression: Headache Scribe Attestation The scribe's documentation has been prepared under my direction and personally reviewed by me in its entirety. I confirm that the note above accurately reflects all work, treatment, procedures, and medical decision making performed by me. Departure Information Dispostion Home / Self-Care Referrals Lynette Jorge D.O. (PCP) Forms HOME CARE DOCUMENTATION FORM, IMPORTANT VISIT INFORMATION, WORK / SCHOOL INSTRUCTIONS Patient Instructions My [facility] Additional Instructions Follow up with Dr. Miranda at scheduled appointments for recent neurological findings and continued workup HEADACHE INSTRUCTIONS: DO NOT drive, drink alcohol, operate machinery, or perform dangerous activities today. You were given medications in the ER that can affect your ability to safely function or operate a vehicle. Rest today in a quiet, peaceful, dark environment and get a full 8-10 hrs of sleep tonight. Avoid loud noises, smoke/smoking, alcohol, bright lights, stress, or physical exertion today to minimize the chance the headache may return. Continue current medications. Ibuprofen(Motrin, Advil) may be used for fever or pain. Use 600mg every six hours as needed. Take with food. Avoid using more than 2400mg in a 24 hour period. Do not use 2400mg per day for more than three consecutive days without physician direction. Prolonged inappropriate use can lead to stomach upset or ulcers. (AND/OR) Acetaminophen(Tylenol) may be used for fever or pain. Use 1000mg every six hours as needed. Avoid using more than 4000mg in a 24 hour period. Return to the ER for passing out, worsening headache, vision problems, neck stiffness/pain, fevers, vomiting, worsening of your condition, or as needed. Follow up with your primary physician in 2-3 days for a recheck of your current condition. Problem Qualifiers Primary Impression: Headache Headache type: unspecified Headache chronicity pattern: acute headache Intractability: not intractable Qualified Codes: R51 - Headache
[2017-02-19] MEDS ORDERED: DEXAMETHASONE SOD INJ 10 MG/ML VIAL IV ONE (16:45)
[2017-02-19 17:00] LABS: BASO % 0.3 %; BASO ABS # 0.03 K/uL (0-0.2); COMPLETE YES; EOS % 3.9 %; HEMATOCRIT 40.1 % (37-47); IG% 0.2 %; LYMPH % 23.2 %; LYMPH ABS # 2.45 K/uL (1.2-3.4); MEAN CELL VOLUME 84.8 fL (80-100); MEAN CORPUSCULAR HEMOGLOBIN 28.5 pg (25-34); MEAN CORPUSCULAR HGB CONC 33.7 g/dl (32-36); MEAN PLATELET VOLUME 9.6 fL (7.4-10.4); MONO % 7.1 %; NEUT % 65.3 %; PLATELET COUNT 306 K/uL (130-400); RED BLOOD COUNT 4.73 M/uL (4.2-5.4); WHITE BLOOD COUNT 10.58 K/uL (4.8-10.8)
[2017-02-19 17:21] LABS: ALT/SGPT 24 U/L (12-78); BLOOD UREA NITROGEN 13 mg/dl (7-18); BUN/CREATININE RATIO 14.4 (10-20); C-REACTIVE PROTEIN 0.66 mg/dl (0-0.29); CALCIUM 9.2 mg/dl (8.5-10.1); CARBON DIOXIDE 27 mmol/L (21-32); CHLORIDE 106 mmol/L (98-107); CREATININE 0.89 mg/dl (0.60-1.20); GLUCOSE 96 mg/dl (70-99); POTASSIUM 3.8 mmol/L (3.5-5.1); SODIUM 141 mmol/L (136-145)
[2017-02-19 17:29] LABS: ALKALINE PHOSPHATASE 121 U/L (45-117); AST/SGOT 12 U/L (15-37)
--- NOTE | 2017-02-19 17:31 | DIAGNOSTIC IMAGING REPORT ---
CT OF THE HEAD WITHOUT CONTRAST CLINICAL HISTORY: Severe headache. COMPARISON STUDY: MRI of the brain February 13, 2017. CT DOSE: 537.48 mGy.cm TECHNIQUE: Helical axial images of the head were obtained without IV contrast. Automated exposure control was utilized for the study. FINDINGS: No acute intracranial hemorrhage, midline shift or mass effect is present. Ventricular system is normal. Basilar cisterns are patent. No extra axial collections are present. Numerous white matter hypodensities correspond to T2 hyperintense foci on MRI of February 13, 2017. Allowing for differences in technique, the findings are similar. There are no CT findings to suggest acute dural sinus thrombosis or acute territorial infarct. There are no significant calvarial abnormalities. There is mild mucosal thickening of the ethmoid sinuses. IMPRESSION: 1. No acute intracranial hemorrhage. 2. Numerous white matter hypodensities which correspond to the foci of signal abnormality on MRI of February 13, 2017. These remain nonspecific. Allowing for differences in technique, no significant change is noted. Electronically signed by: Yair Acharya M.D. 02/19/2017 5:30 PM Dictated Date/Time: 02/19/2017 5:21 PM
--- NOTE | 2017-02-19 17:51 | EMERGENCY ROOM VISIT NOTE ---
History First contact with patient: 16:19 Chief Complaint: REFERRED BY DOCTOR Stated Complaint: COGNITIVE ISSUES- PHYSICIAN REFERRED History of Present Illness The patient is a 26 year old female who presents to the Emergency Room with complaints of headache. The patient states that she woke up yesterday with a right sided frontal headache that has progressively worsened and now is 10/10, feels like it is wrapping around her head, throbbing, and radiating to her left shoulder. This morning she also began to have diffuse joint pain over her fingers, toes, and elbows. The patient was seen in the ED last week for syncope and on MRI was found to have findings questionable for demyelinating disease. She followed up with Dr. Miranda who is going to evaluate her current symptoms. She denies any fever, chills chest pain, abdominal pain, or vomiting. Review of Systems See HPI for pertinent positives and negatives. A total of ten systems were reviewed and were otherwise negative. Past Medical/Surgical History Medical Problems: (1) Asthma, moderate persistent (2) uterine contractions in third trimester, antepartum Surgical Problems: (1) History of Amadou fundoplication Family History Cancer Diabetes mellitus FH: lupus MOTHER Heart disease Hypertension Social History Smoking Status: Never Smoker Alcohol Use: none Drug Use: none Marital Status: Housing Status: lives with family Occupation Status: employed Current/Historical Medications Scheduled Fenugreek (Trigonella Foenum-G (Fenugreek), 1 CAP PO DAILY Multivit/Min/Iron/Fol Ac/Pren ( Vitamin), 1 TAB PO DAILY Allergies Coded Allergies: Sulfa Drugs (Verified Allergy, Unknown, HIVES, 02/19/17) Sulfamethoxazole w/Trimethoprim (Verified Allergy, Unknown, HIVES, 02/19/17 ) Physical Exam Vital Signs Date Time Temp Pulse Resp B/P (MAP) Pulse Ox O2 Delivery O2 Flow Rate FiO2 02/19/17 16:10 36.9 90 18 112/74 97 Room Air Physical Exam GENERAL: Awake, tired appearing, mild distress HENT: Normocephalic, atraumatic. Oropharynx unremarkable. EYES: Normal conjunctiva. Sclera non-icteric. NECK: Supple. Lateral neck pain with movement of the neck. RESPIRATORY: Clear to auscultation. CARDIAC: Regular rate, normal rhythm. Extremities warm and well perfused. Pulses equal. ABDOMEN: Soft, non-distended. No tenderness to palpation. RECTAL: Deferred. MUSCULOSKELETAL: Chest examination reveals no tenderness. The back is symmetrical on inspection without obvious abnormality. LOWER EXTREMITIES: Calves are equal size bilaterally and non-tender. No edema. No discoloration. NEURO: Normal sensorium. No sensory or motor deficits noted. SKIN: No rash or jaundice noted. Medical Decision & Procedures Laboratory Results 02/19/17 16:45 Red Blood Count 4.73, Mean Corpuscular Volume 84.8, Mean Corpuscular Hemoglobin 28.5, Mean Corpuscular Hemoglobin Concent 33.7, Mean Platelet Volume 9.6, Neutrophils (%) (Auto) 65.3, Lymphocytes (%) (Auto) 23.2, Monocytes (%) (Auto) 7.1, Eosinophils (%) (Auto) 3.9, Basophils (%) (Auto) 0.3, Neutrophils # (Auto) 6.92, Lymphocytes # (Auto) 2.45, Monocytes # (Auto) 0.75, Eosinophils # (Auto) 0.41, Basophils # (Auto) 0.03 02/19/17 16:45 Test 02/19/17 16:35 02/19/17 16:36 02/19/17 16:45 White Blood Count 10.58 K/uL (4.8-10.8) Red Blood Count 4.73 M/uL (4.2-5.4) Hemoglobin 13.5 g/dL (12.0-16.0) Hematocrit 40.1 % (37-47) Mean Corpuscular Volume 84.8 fL (80-100) Mean Corpuscular Hemoglobin 28.5 pg (25-34) Mean Corpuscular Hemoglobin Concent 33.7 g/dl (32-36) Platelet Count 306 K/uL (130-400) Mean Platelet Volume 9.6 fL (7.4-10.4) Neutrophils (%) (Auto) 65.3 % Lymphocytes (%) (Auto) 23.2 % Monocytes (%) (Auto) 7.1 % Eosinophils (%) (Auto) 3.9 % Basophils (%) (Auto) 0.3 % Neutrophils # (Auto) 6.92 K/uL (1.4-6.5) Lymphocytes # (Auto) 2.45 K/uL (1.2-3.4) Monocytes # (Auto) 0.75 K/uL (0.11-0.59) Eosinophils # (Auto) 0.41 K/uL (0-0.5) Basophils # (Auto) 0.03 K/uL (0-0.2) RDW Standard Deviation 46.0 fL (36.4-46.3) RDW Coefficient of Variation 14.8 % (11.5-14.5) Immature Granulocyte % (Auto) 0.2 % Immature Granulocyte # (Auto) 0.02 K/uL (0.00-0.02) Erythrocyte Sedimentation Rate 10 mm/hr (0-21) Anion Gap 8.0 mmol/L (3-11) Est Creatinine Clear Calc Drug Dose 101.8 ml/min Estimated GFR () 104.4 Estimated GFR (Non- 90.1 BUN/Creatinine Ratio 14.4 (10-20) Calcium Level 9.2 mg/dl (8.5-10.1) Total Bilirubin 0.2 mg/dl (0.2-1) Direct Bilirubin < 0.1 mg/dl (0-0.2) Aspartate Amino Transf (AST/SGOT) 12 U/L (15-37) Alanine Aminotransferase (ALT/SGPT) 24 U/L (12-78) Alkaline Phosphatase 121 U/L (45-117) C-Reactive Protein 0.66 mg/dl (0-0.29) Total Protein 7.4 gm/dl (6.4-8.2) Albumin 3.7 gm/dl (3.4-5.0) Lipase 164 U/L (73-393) Medications Administered Medications (Trade) Dose Ordered Sig/Cheryl Route Start Time Stop Time Status Last Admin Dose Admin Sodium Chloride 1,000 ml @ 999 mls/hr Q1H1M STAT IV 02/19/17 16:30 02/19/17 17:30 DC 02/19/17 16:30 999 MLS/HR Ketorolac Tromethamine (Toradol Inj) 30 mg NOW STAT IV 02/19/17 16:30 02/19/17 16:32 DC 02/19/17 16:30 30 MG Diphenhydramine HCl (Benadryl Inj) 25 mg NOW STAT IV 02/19/17 16:30 02/19/17 16:32 DC 02/19/17 16:59 25 MG Prochlorperazine Edisylate (Compazine Inj) 5 mg NOW STAT IV 02/19/17 16:30 02/19/17 16:32 DC 02/19/17 16:30 5 MG Dexamethasone Sodium Phosphate (Decadron Inj) 10 mg NOW ONCE IV 02/19/17 16:45 02/19/17 16:46 DC 02/19/17 17:03 10 MG Magnesium Sulfate (Magnesium Sulfate) 1 gm NOW STAT IV 02/19/17 16:35 02/19/17 16:38 DC 02/19/17 17:04 1 GM Medical Decision Patient is a 26 year old female that presents with a 1 day history of headache Etiologies such as migraine, tumor, headache, sinus thrombosis, temporal arteritis, sinusitis, CVA, ICH, SAH, infection, as well as others were entertained. Imaging: CT Head Orthostatic Vitals Labs: CBC, BMP, LFT, Lipase, ESR, CRP Medications: Benadryl, Compazine, Toradol, magnesium, Decadron Impression Primary Impression: Headache Patient is 26 year old female that presents a 1 day history of headache - CT shows numerous white matter hypodensities that correspond to imaging on February 13, but otherwise no acute abnormalities - Headache symptoms improved with combination of medications given in the ED ( Compazine, Benadryl, Toradol, Decadron, Magnesium) - Patient states there are no ongoing personal issues at home, she is not depressed, and does not think about harming herself or anyone else - Patient agreeable to being discharged home Departure Information Dispostion Home / Self-Care Condition GOOD Referrals Lynette Jorge D.OAkbar (PCP) Patient Instructions My [facility] Additional Instructions Follow up with Dr. Miranda at scheduled appointments for recent neurological findings and continued workup HEADACHE INSTRUCTIONS: DO NOT drive, drink alcohol, operate machinery, or perform dangerous activities today. You were given medications in the ER that can affect your ability to safely function or operate a vehicle. Rest today in a quiet, peaceful, dark environment and get a full 8-10 hrs of sleep tonight. Avoid loud noises, smoke/smoking, alcohol, bright lights, stress, or physical exertion today to minimize the chance the headache may return. Continue current medications. Ibuprofen(Motrin, Advil) may be used for fever or pain. Use 600mg every six hours as needed. Take with food. Avoid using more than 2400mg in a 24 hour period. Do not use 2400mg per day for more than three consecutive days without physician direction. Prolonged inappropriate use can lead to stomach upset or ulcers. (AND/OR) Acetaminophen(Tylenol) may be used for fever or pain. Use 1000mg every six hours as needed. Avoid using more than 4000mg in a 24 hour period. Return to the ER for passing out, worsening headache, vision problems, neck stiffness/pain, fevers, vomiting, worsening of your condition, or as needed. Follow up with your primary physician in 2-3 days for a recheck of your current condition. Problem Qualifiers Primary Impression: Headache Headache type: unspecified Headache chronicity pattern: acute headache Intractability: intractable Qualified Codes: R51 - Headache
[2017-02-19 18:28] VITALS: BP 101/55; PULSE 81; O2SAT 97
[2017-02-19 20:14] LABS: LYME DISEASE AB IGG NEG (NEG); LYME DISEASE AB IGM NEG (NEG)
== END 2017-02-19 18:30 | disposition home or self-care (01) ==
LOC: C.EDB 16:09
DX: R51 Headache (principal); J45.40 Moderate persistent asthma, uncomplicated; Z79.899 Other long term (current) drug therapy; Z88.2 Allergy status to sulfonamides; Z80.9 Family history of malignant neoplasm, unspecified; Z83.3 Family history of diabetes mellitus; Z82.49 Family history of ischemic heart disease and other diseases of the circulatory system

== ENCOUNTER → 2017-02-25 | Day surgery (SDC) | payer OTHER ==
[~2017-02-25] VITALS: Ht 162.6 cm; Wt 79.5 kg
[2017-02-25] VITALS (11 sets, daily range): BP systolic 98–120; BP diastolic 57–68; PULSE 54–75; TEMP 36.9–37.3; O2SAT 95–99; Ht 162.6 cm; Wt 79.5 kg
[~2017-02-25] MED LIST changes: +ACET500C35 PO; +TPM25 PO; +[UNRECOGNIZED DRUG - CODE] PO; +albuterol inhaler INH
--- NOTE | 2017-02-25 09:40 | Discharge Instructions ---
Discharge Instructions Procedure Procedure Date: Feb 25, 2017. Reason for visit: Abnormal Brain Mri, Dd *W/Opening Pressure*. Discharge Discharge Date: Feb 25, 2017. Discharge Diagnosis: s/p lumbar puncture Instructions Activity Recommendations: 1 Day-May resume regular activity, 48 Hours of decreased exertion Return to School/Work: no limitations Recommended Home Diet: No Limitations Provider Instructions: ACTIVITY RECOMMENDATIONS: * Rest today. * Resume regular activity in one day. MEDICATIONS: * May take Tylenol or Ibuprofen as needed for pain. DIET: * Resume previous diet. SPECIAL CARE INSTRUCTIONS: Call your doctor if: * Temperature above 101 degrees F. * Pain not relieved by pain medicine ordered. * Increased drainage or redness from incision. * Notify your doctor with any questions or concerns. Call your doctor or go to the nearest Emergency Department if you experience: * Increased chest pain or shortness of breath. FOLLOW UP VISIT: Follow-up with Referring Physician as scheduled. Allergies Coded Allergies: Sulfa Drugs (Verified Allergy, Unknown, HIVES, 02/25/17) Sulfamethoxazole w/Trimethoprim (Verified Allergy, Unknown, HIVES, 02/25/17 ) [place] Recommendations: Call your doctor if: * Temperature above 101 degrees * Pain not relieved by pain medicine ordered * There is increased drainage or redness from any incision * You have any unanswered questions or concerns. Your Doctors Instructions noted above were prepared by provider Yair Acharya. Patient Signature Section: Patient Instructions Signature Page Marianne Valenzuela Patient (or Guardian) Signature/Date: I have read and understand the instructions given to me by my caregivers. Caregiver/RN/Doctor Signature/Date: The above-named patient and/or guardian has received patient instructions on this date. + Original Patient Signature Page (only) stays with chart. Please make copy for patient.
--- NOTE | 2017-02-25 09:42 | DIAGNOSTIC IMAGING REPORT ---
FLUOROSCOPICALLY GUIDED LUMBAR PUNCTURE CLINICAL HISTORY: Abnormal MRI of the brain. PROCEDURE: The procedure, risks and benefits were discussed with the patient including the risk of spinal headache, bleeding and infection. The patient agreed to the procedure and informed written consent was obtained. The procedure was performed by Dr. Acharya following a timeout. The right L4-L5 interlaminar space was targeted. Skin overlying the space was prepped and draped in sterile fashion and local anesthesia was achieved with 1% lidocaine. Under intermittent fluoroscopic guidance, a 5 inch, 22-gauge spinal needle was directed into the thecal sac with immediate return of clear CSF. Opening pressure was 19.7 cm of water. A total of 8 cc of clear CSF was collected in 4 vials and sent to laboratory as ordered. The needle was removed. The patient tolerated the procedure well and no immediate complications were evident. IMPRESSION: 1. Fluoroscopically guided lumbar puncture with collection of 8 cc of clear cerebrospinal fluid. 2. Opening pressure of 19.7 cm of water. Electronically signed by: Yair Acharya M.D. 02/25/2017 9:41 AM Dictated Date/Time: 02/25/2017 9:38 AM
[2017-02-25 10:16] LABS: CSF CHEMISTRY TUBE # 1
[2017-02-25 10:43] LABS: CSF TOTAL PROTEIN 27.4 mg/dl (15.0-45.0)
[2017-02-25 11:43] LABS: CSF APPEARANCE CLEAR; CSF COLOR COLORLESS; CSF XANTHOCHROMIC NO XANTHOCHROMIA
[2017-03-02 07:16] LABS: ANTI-CENTROMERE AB <1.0 NEG AI (<1.0 NEG); ANTI-SS-A <1.0 NEG AI (<1.0 NEG); ANTI-SS-B <1.0 NEG AI (<1.0 NEG); DNA ds CRITHIDIA NEGATIVE (NEGATIVE); MICROSOMAL AB <1 IU/ML (<9); Sm Antibody <1.0 NEG AI (<1.0 NEG)
[2017-03-04 06:38] LABS: ALBUMIN 3.6 g/dL (3.7-5.1); IGG CSF 1.3 mg/dL (0.8-7.7); IGG SERUM 918 mg/dL (694-1618); LYME DNA PCR CSF OR SYNOVIAL Not detected (Not Detected); LYME DNA SOURCE CSF; LYME IGG CSF NO BANDS DETECTED; LYME IGM CSF NO BANDS DETECTED; MYELIN BASIC PROTEIN 663 <2.0 mcg/L (0.0-4.0)
== END | disposition home or self-care (01) ==
LOC: C.ACU 07:27
PROVIDERS: ATTEND Psychiatry & Neurology Neurology
DX: R90.89 Other abnormal findings on diagnostic imaging of central nervous system (principal)

== ENCOUNTER → 2017-03-02 | Outpatient (CLI) | payer OTHER ==
[~2017-03-02] MED LIST changes: +GADAVIST IV PRN
--- NOTE | 2017-03-02 08:43 | DIAGNOSTIC IMAGING REPORT ---
BRAIN COMBO FOR MS HISTORY: Multiple sclerosis ABNORMAL BRAIN MRI, DEMYELINATING DISORDER TECHNIQUE: Multiplanar multisequence MRI of the brain was performed both before and after the intravenous administration of contrast. COMPARISON STUDY: 02/13/2017 FINDINGS: There are no areas of restricted diffusion to suggest acute infarction. The midline structures are intact. The paranasal sinuses are clear. The mastoid air cells are clear. The ventricles and sulci are within normal limits for age. There is no mass, multiple foci of increased signal are identified in the periventricular deep white matter regions. This shows no major change in the prior study. It is highly suggestive of a demyelinating disorder such as multiple sclerosis. IMPRESSION: Unchanged exam compared to the prior study of 02/13/2017. The appearance is highly suggestive of a demyelinating disorder such as multiple sclerosis. The above report was generated using voice recognition software. It may contain grammatical, syntax or spelling errors. Electronically signed by: Francisco Jackson M.D. 03/02/2017 8:42 AM Dictated Date/Time: 03/02/2017 8:34 AM
== END | disposition home or self-care (01) ==
LOC: EDSTATUS 07:30 → C.MRI 07:44
PROVIDERS: ATTEND Psychiatry & Neurology Neurology
DX: G37.9 Demyelinating disease of central nervous system, unspecified (principal); R90.89 Other abnormal findings on diagnostic imaging of central nervous system

== ENCOUNTER → 2017-03-31 | Outpatient (CLI) | payer OTHER ==
[~2017-03-31] MED LIST changes: -GADAVIST IV PRN
--- NOTE | 2017-03-31 13:18 | DIAGNOSTIC IMAGING REPORT ---
Brain MRA HISTORY: R90.89 Abnormal brain [id number] Vision [id number] TECHNIQUE: 3-D [id number] MRA of the brain was performed without contrast. COMPARISON STUDY: Brain MRI 03/02/2017. FINDINGS: Visualized intracranial internal carotid arteries, distal vertebral arteries, and basilar artery are widely patent. There is no significant stenosis, occlusion, or aneurysm seen within the bilateral ACAs, MCAs, or epic kaleidoscope analyst. IMPRESSION: No significant stenosis, occlusion, or aneurysm within the [place]. Electronically signed by: Hussain Childs M.D. 03/31/2017 1:17 PM Dictated Date/Time: 03/31/2017 1:14 PM
== END | disposition home or self-care (01) ==
LOC: C.MRIBC 12:39
PROVIDERS: ATTEND Psychiatry & Neurology Neurology
DX: H53.9 Unspecified visual disturbance (principal); R51 Headache; R79.82 Elevated C-reactive protein (CRP); R90.89 Other abnormal findings on diagnostic imaging of central nervous system

== ENCOUNTER → 2017-03-31 | Outpatient (CLI) | payer OTHER ==
--- NOTE | 2017-03-31 17:20 | EEG Procedure Note ---
EEG Procedure Note Date of Service Mar 31, 2017. Start / End Times Start Time: 1:50 PM End Time: 2:11 PM Referring Physician Deisy Case History This is a 26-year-old female with spells of decreased attentiveness. EEG for further evaluation of possible seizure etiology. Home Medication List Scheduled Fenugreek (Trigonella Foenum-G (Fenugreek), 1 CAP PO DAILY Multivit/Min/Iron/Fol Ac/Pren ( Vitamin), 1 TAB PO DAILY [albuterol inhaler], 2 PUFFS INH prn Description This is a 21 electrode EEG with a single channel dedicated to limited EKG. The electrodes were placed in accordance with the International 10-20 system. At the start of the recording the patient was in an awake state. Background was well organized and composed of symmetric mixed alpha and beta frequencies. There was a symmetric well-formed moderate amplitude 10-11 Hz posterior dominant rhythm that was reactive to eye opening and closure. Hyperventilation was not done. Intermittent photic stimulation at various frequencies produced no abnormalities. Sleep was indicated by vertex waves and symmetric sleep spindles Interpretation This is a normal awake and asleep routine EEG. There was no electrographic seizures or epileptiform discharges. Clinical Correlation A normal EEG does not rule out epilepsy if there is a strong clinical suspicion.
== END | disposition home or self-care (01) ==
LOC: C.NEUR 13:29
PROVIDERS: ATTEND Physician Assistant
DX: R68.89 Other general symptoms and signs (principal)

== ENCOUNTER 2017-04-10 18:53 | Emergency (ER) | payer OTHER ==
[~2017-04-10] VITALS: Ht 165.1 cm; Wt 82.6 kg
[~2017-04-10 18:53] MED LIST changes: -ACET500C35 PO; -TPM25 PO; -[UNRECOGNIZED DRUG - CODE] PO
[2017-04-10 18:57] VITALS: TEMP 38.2; Ht 165.1 cm; Wt 82.6 kg
[2017-04-10] MEDS ORDERED: ONDANSETRON 8 MG/54 ML D5W IV STA (19:25)
[2017-04-10] MEDS ORDERED: SODIUM CHLORIDE 0.9% 1000ML 1,000 ML IV STA (19:25)
[2017-04-10] MEDS ORDERED: CEFTRIAXONE SOD INJ 1 GM ADDVIAL IV STA (19:25)
[2017-04-10] MEDS: MoRPHine SULFATE 4 MG/ML 1 ML CARP\\VIAL IV PRN ×2 (19:41→20:50)
[2017-04-10 19:54] LABS: BASO % 0.5 %; BASO ABS # 0.04 K/uL (0-0.2); COMPLETE YES; HEMATOCRIT 41.1 % (37-47); IG% 0.1 %; LYMPH % 22.5 %; LYMPH ABS # 1.98 K/uL (1.2-3.4); MEAN CELL VOLUME 84.7 fL (80-100); MEAN CORPUSCULAR HEMOGLOBIN 28.9 pg (25-34); MEAN CORPUSCULAR HGB CONC 34.1 g/dl (32-36); MEAN PLATELET VOLUME 9.6 fL (7.4-10.4); MONO % 12.3 %; NEUT % 62.6 %; PLATELET COUNT 303 K/uL (130-400); RED BLOOD COUNT 4.85 M/uL (4.2-5.4)
[2017-04-10] MEDS ORDERED: XYLOCAINE 1%/SOD BICARB 20 ML VIAL INFIL ONE (20:00)
[2017-04-10 20:07] LABS: PARTIAL THROMBOPLASTIN RATIO 1.3; PROTHROMBIN TIME (PATIENT) 10.7 SECONDS (9.0-12.0)
--- NOTE | 2017-04-10 20:11 | DIAGNOSTIC IMAGING REPORT ---
CHEST ONE VIEW PORTABLE HISTORY: Evaluate Fever/Sepsis COMPARISON: Chest 09/04/2016. FINDINGS: The lungs are clear. Cardiac silhouette is normal in size. No pleural effusions. No pneumothorax. Low lung volumes. IMPRESSION: No acute process. Electronically signed by: Hussain Childs M.D. 04/10/2017 8:10 PM Dictated Date/Time: 04/10/2017 8:09 PM
[2017-04-10 20:15] LABS: ALT/SGPT 19 U/L (12-78); AST/SGOT 10 U/L (15-37); BLOOD UREA NITROGEN 18 mg/dl (7-18); BUN/CREATININE RATIO 18.2 (10-20); C-REACTIVE PROTEIN 1.98 mg/dl (0-0.29); CALCIUM 9.3 mg/dl (8.5-10.1); CARBON DIOXIDE 25 mmol/L (21-32); CHLORIDE 107 mmol/L (98-107); GLUCOSE 96 mg/dl (70-99); POTASSIUM 3.3 mmol/L (3.5-5.1); SODIUM 138 mmol/L (136-145)
[2017-04-10 20:18] LABS: ALKALINE PHOSPHATASE 105 U/L (45-117)
--- NOTE | 2017-04-10 20:26 | DIAGNOSTIC IMAGING REPORT ---
HEAD CT NONCONTRAST CT DOSE: HISTORY: headache, fever TECHNIQUE: Multiaxial CT images of the head were performed without the use of intravenous contrast. Automated exposure control was utilized for this study. A dose lowering technique was utilized adhering to the principles of ALARA. Comparison: Head CT 02/19/2017. Brain MRI 03/02/2017. Findings: The paranasal sinuses and mastoid air cells are clear. The calvarium and skull base are intact. The ventricles and sulci are within normal limits. There is no mass, hematoma, midline shift, or acute infarct. No change in the scattered white matter hypodensities consistent with the patient's history of multiple sclerosis. Impression: No significant change compared to the prior study. No acute intracranial abnormality. Electronically signed by: Hussain Childs M.D. 04/10/2017 8:24 PM Dictated Date/Time: 04/10/2017 8:20 PM
--- NOTE | 2017-04-10 20:29 | DIAGNOSTIC IMAGING REPORT ---
SINUS CT CT DOSE: HISTORY: fever, headache TECHNIQUE: Multiaxial CT images of the paranasal sinuses were performed and reformatted in the coronal plane without the use of contrast. A dose lowering technique was utilized adhering to the principles of ALARA. COMPARISON: None. FINDINGS: Hypoplastic right frontal sinus. The frontal sinuses and left ethmoid air cells are clear. The mastoid air cells are clear. There is a small retention cyst within the floor of the bilateral maxillary sinuses with the largest on the left measuring 11 mm. Single opacified right ethmoid air cell. Mild mucosal thickening within the right sphenoid sinus anteriorly. The left sphenoid sinus is clear. No fluid levels identified within the paranasal sinuses. The lamina papyracea and orbital floors are intact. The nasal septum is minimal right deviation. The orbits are unremarkable. The bilateral ostiomeatal units are patent. IMPRESSION: Minimal chronic sinus disease as described above. No fluid levels within the paranasal sinuses. Electronically signed by: Hussain Childs M.D. 04/10/2017 8:27 PM Dictated Date/Time: 04/10/2017 8:24 PM
[2017-04-10 21:31] LABS: CSF APPEARANCE CLEAR; CSF COLOR COLORLESS
[2017-04-10 21:32] LABS: CSF XANTHOCHROMIC NO XANTHOCHROMIA
[2017-04-10 21:33] LABS: CSF CHEMISTRY TUBE # 2
[2017-04-10 21:34] LABS: CSF TOTAL PROTEIN 21.3 mg/dl (15.0-45.0)
[2017-04-10 21:41] LABS: CSF APPEARANCE CLEAR; CSF COLOR COLORLESS; CSF XANTHOCHROMIC NO XANTHOCHROMIA
[2017-04-10 21:52] LABS: URINE APPEARANCE CLEAR (CLEAR); URINE BILIRUBIN NEG (NEG); URINE COLOR YELLOW; URINE EPITHELIAL CELL AUTO 20-30 /lpf (0-5); URINE NITRITE NEG (NEG); URINE SPECIFIC GRAVITY 1.023 (1.000-1.030); UROBILINOGEN NEG (NEG); ZZUR CULT IF INDIC CLEAN CATCH NO
[2017-04-10 21:57] LABS: MANUAL MICROSCOPIC REQUIRED? NO; REVIEW REQ? NO
[2017-04-10 22:40] VITALS: BP 96/50; PULSE 77; O2SAT 95
--- NOTE | 2017-04-10 22:45 | EMERGENCY ROOM VISIT NOTE ---
History Report prepared by Arya: Flavio Balderrama Under the Supervision of: Dr. Grant Medeiros D.O. First contact with patient: 19:06 Chief Complaint: HEADACHE Stated Complaint: SEVERE MIGRANE History of Present Illness The patient is a 26 year old female who presents to the Emergency Room with complaints of a constant migraine headache at the front of her head starting earlier today. The patient states that she is having photophobia, body aches, fever, abdominal pain, and sore throat. The patient states that she was recently put on acetazolamide for her migraines by a neurologist. She states that this is the worst headache that she has had over the past couple of months. She states that she was diagnosed with intracranial hypertension. Source of History: patient Onset: this morning Position: head Quality: other (migraine) Timing: constant Modifying Factors (Worsening): other (light) Associated Symptoms: + fevers, + sorethroat, + abdominal pain Note: Associated symptoms: photophobia, body aches Review of Systems See HPI for pertinent positives & negatives. A total of 10 systems reviewed and were otherwise negative. Past Medical & Surgical Medical Problems: (1) Asthma, moderate persistent (2) uterine contractions in third trimester, antepartum Surgical Problems: (1) History of Amadou fundoplication Family History Cancer Diabetes mellitus FH: lupus MOTHER Heart disease Hypertension Social History Smoking Status: Never Smoker Alcohol Use: none Drug Use: none Marital Status: Housing Status: lives with family Occupation Status: employed Current/Historical Medications Scheduled Fenugreek (Trigonella Foenum-G (Fenugreek), 1 CAP PO DAILY Multivit/Min/Iron/Fol Ac/Pren ( Vitamin), 1 TAB PO DAILY [albuterol inhaler], 2 PUFFS INH prn Allergies Coded Allergies: Sulfa Drugs (Verified Allergy, Unknown, HIVES, 04/10/17) Sulfamethoxazole w/Trimethoprim (Verified Allergy, Unknown, HIVES, 04/10/17) Physical Exam Vital Signs Date Time Temp Pulse Resp B/P (MAP) Pulse Ox O2 Delivery O2 Flow Rate FiO2 04/10/17 20:44 81 20 113/60 98 Room Air 04/10/17 18:57 38.2 89 18 121/82 98 Room Air Physical Exam CONSTITUTIONAL/VITAL SIGNS: Reviewed / noted above. GENERAL: Uncomfortable, non-toxic in appearance. Light sensitivity INTEGUMENTARY: Warm, dry, and [place]. HEAD: Normocephalic. EYES: without scleral icterus or trauma. ENT/OROPHARYNX: clear and moist. LYMPHADENOPATHY/NECK: Neck pain with movement. Is supple without lymphadenopathy RESPIRATORY: Lungs clear and equal. CARDIOVASCULAR: Regular rate and rhythm. GI/ABDOMEN: Soft and nontender. No organomegaly or pulsatile mass. No rebound or guarding. Normal bowel sounds. EXTREMITIES: Warm and well perfused. BACK: No CVA tenderness. NEUROLOGICAL: Intact without focal deficits. PSYCHIATRIC: normal affect. MUSCULOSKELETAL: Normally developed with good muscle tone. Medical Decision & Procedures ER Provider Diagnostic Interpretation: Radiology results as stated below per my review and radiologist interpretation: CHEST ONE VIEW PORTABLE HISTORY: Evaluate Fever/Sepsis COMPARISON: Chest 09/04/2016. FINDINGS: The lungs are clear. Cardiac silhouette is normal in size. No pleural effusions. No pneumothorax. Low lung volumes. IMPRESSION: No acute process. Electronically signed by: Hussain Childs M.D. 04/10/2017 8:10 PM Dictated Date/Time: 04/10/2017 8:[address] DOSE: HISTORY: fever, headache TECHNIQUE: Multiaxial CT images of the paranasal sinuses were performed and reformatted in the coronal plane without the use of contrast. A dose lowering technique was utilized adhering to the principles of ALARA. COMPARISON: None. FINDINGS: Hypoplastic right frontal sinus. The frontal sinuses and left ethmoid air cells are clear. The mastoid air cells are clear. There is a small retention cyst within the floor of the bilateral maxillary sinuses with the largest on the left measuring 11 mm. Single opacified right ethmoid air cell. Mild mucosal thickening within the right sphenoid sinus anteriorly. The left sphenoid sinus is clear. No fluid levels identified within the paranasal sinuses. The lamina papyracea and orbital floors are intact. The nasal septum is minimal right deviation. The orbits are unremarkable. The bilateral ostiomeatal units are patent. IMPRESSION: Minimal chronic sinus disease as described above. No fluid levels within the paranasal sinuses. Electronically signed by: Hussain Childs M.D. 04/10/2017 8:27 PM Dictated Date/Time: 04/10/2017 8:[address] DOSE: HISTORY: headache, fever TECHNIQUE: Multiaxial CT images of the head were performed without the use of intravenous contrast. Automated exposure control was utilized for this study. A dose lowering technique was utilized adhering to the principles of ALARA. Comparison: Head CT 02/19/2017. Brain MRI 03/02/2017. Findings: The paranasal sinuses and mastoid air cells are clear. The calvarium and skull base are intact. The ventricles and sulci are within normal limits. There is no mass, hematoma, midline shift, or acute infarct. No change in the scattered white matter hypodensities consistent with the patient's history of multiple sclerosis. Impression: No significant change compared to the prior study. No acute intracranial abnormality. Electronically signed by: Hussain Childs M.D. 04/10/2017 8:24 PM Dictated Date/Time: 04/10/2017 8:20 PM Laboratory Results 04/10/17 19:35 Red Blood Count 4.85, Mean Corpuscular Volume 84.7, Mean Corpuscular Hemoglobin 28.9, Mean Corpuscular Hemoglobin Concent 34.1, Mean Platelet Volume 9.6, Neutrophils (%) (Auto) 62.6, Lymphocytes (%) (Auto) 22.5, Monocytes (%) (Auto) 12.3, Eosinophils (%) (Auto) 2.0, Basophils (%) (Auto) 0.5, Neutrophils # (Auto ) 5.51, Lymphocytes # (Auto) 1.98, Monocytes # (Auto) 1.08, Eosinophils # (Auto ) 0.18, Basophils # (Auto) 0.04 04/10/17 19:35 Test 04/10/17 19:35 04/10/17 19:37 04/10/17 19:45 04/10/17 20:00 White Blood Count 8.80 K/uL (4.8-10.8) Red Blood Count 4.85 M/uL (4.2-5.4) Hemoglobin 14.0 g/dL (12.0-16.0) Hematocrit 41.1 % (37-47) Mean Corpuscular Volume 84.7 fL (80-100) Mean Corpuscular Hemoglobin 28.9 pg (25-34) Mean Corpuscular Hemoglobin Concent 34.1 g/dl (32-36) Platelet Count 303 K/uL (130-400) Mean Platelet Volume 9.6 fL (7.4-10.4) Neutrophils (%) (Auto) 62.6 % Lymphocytes (%) (Auto) 22.5 % Monocytes (%) (Auto) 12.3 % Eosinophils (%) (Auto) 2.0 % Basophils (%) (Auto) 0.5 % Neutrophils # (Auto) 5.51 K/uL (1.4-6.5) Lymphocytes # (Auto) 1.98 K/uL (1.2-3.4) Monocytes # (Auto) 1.08 K/uL (0.11-0.59) Eosinophils # (Auto) 0.18 K/uL (0-0.5) Basophils # (Auto) 0.04 K/uL (0-0.2) RDW Standard Deviation 45.7 fL (36.4-46.3) RDW Coefficient of Variation 14.7 % (11.5-14.5) Immature Granulocyte % (Auto) 0.1 % Immature Granulocyte # (Auto) 0.01 K/uL (0.00-0.02) Erythrocyte Sedimentation Rate 20 mm/hr (0-21) Prothrombin Time 10.7 SECONDS (9.0-12.0) Prothromb Time International Ratio 1.0 (0.9-1.1) Activated Partial Thromboplast Time 33.3 SECONDS (21.0-31.0) Partial Thromboplastin Ratio 1.3 Anion Gap 6.0 mmol/L (3-11) Est Creatinine Clear Calc Drug Dose 91.3 ml/min Estimated GFR () 90.7 Estimated GFR (Non- 78.2 BUN/Creatinine Ratio 18.2 (10-20) Calcium Level 9.3 mg/dl (8.5-10.1) Total Bilirubin 0.2 mg/dl (0.2-1) Direct Bilirubin < 0.1 mg/dl (0-0.2) Aspartate Amino Transf (AST/SGOT) 10 U/L (15-37) Alanine Aminotransferase (ALT/SGPT) 19 U/L (12-78) Alkaline Phosphatase 105 U/L (45-117) Total Creatine Kinase 139 U/L (26-192) Creatine Kinase MB < 0.5 ng/ml (0.5-3.6) Creatine Kinase MB Ratio (0-3.0) Troponin I < 0.015 ng/ml (0-0.045) C-Reactive Protein 1.98 mg/dl (0-0.29) Total Protein 7.7 gm/dl (6.4-8.2) Albumin 3.8 gm/dl (3.4-5.0) Lipase 181 U/L (73-393) D-Dimer < 190 ug/L FEU (0-500) Influenza Type A Antigen Neg for Influ A (NEG) Influenza Type B Antigen Neg for Influ B (NEG) Lactic Acid Level 1.1 mmol/L (0.4-2.0) Test 04/10/17 20:40 04/10/17 21:30 CSF Color COLORLESS CSF Appearance CLEAR CSF WBC 3 /uL (0-5) CSF RBC 6 /uL (0) CSF Xanthrochromic NO XANTHOCHROMIA CSF Cell Count Tube # 4 CSF Chemistry Tube # 2 CSF Glucose 62 mg/dl (40-70) CSF Total Protein 21.3 mg/dl (15.0-45.0) Urine Color YELLOW Urine Appearance CLEAR (CLEAR) Urine pH 6.0 (4.5-7.5) Urine Specific [place] 1.023 (1.000-1.030) Urine Protein NEG (NEG) Urine Glucose (UA) NEG (NEG) Urine Ketones NEG (NEG) Urine Occult Blood TRACE (NEG) Urine Nitrite NEG (NEG) Urine Bilirubin NEG (NEG) Urine Urobilinogen NEG (NEG) Urine Leukocyte Esterase NEG (NEG) Urine WBC (Auto) 1-5 /hpf (0-5) Urine RBC (Auto) 0-4 /hpf (0-4) Urine Hyaline Casts (Auto) 1-5 /lpf (0-5) Urine Epithelial Cells (Auto) 20-30 /lpf (0-5) Urine Bacteria (Auto) NEG (NEG) Urine Test NEG (NEG) Laboratory results as stated above per my review. Medications Administered Medications (Trade) Dose Ordered Sig/Cheryl Route Start Time Stop Time Status Last Admin Dose Admin Sodium Chloride 1,000 ml @ 999 mls/hr Q1H1M STAT IV 04/10/17 19:25 04/10/17 20:25 DC 04/10/17 19:45 999 MLS/HR Ceftriaxone Sodium (Rocephin Inj) 1 gm NOW STAT IV 04/10/17 19:25 04/10/17 19:28 DC 04/10/17 19:59 1 GM Morphine Sulfate (MoRPHine SULFATE INJ) 4 mg Q1H PRN IV 04/10/17 19:30 04/24/17 19:29 04/10/17 20:50 4 MG Ondansetron HCl (Zofran 8mg Iv) 8 mg NOW STAT IV 04/10/17 19:25 04/10/17 19:28 DC 04/10/17 19:41 8 MG Procedure Lumbar Puncture Indication: fever and headache. Verbal consent was obtained after the risks and benefits were explained, including but not limited to headache, bleeding/clotting, scarring, infection, pain, and bone/joint/nerve damage. At this time, the risks of the procedure are less than the risks of NOT performing the procedure. A time out was taken and the correct patient and site identified. The patient was placed in the left lateral recumbent position and the back was prepped with betadine and draped in the standard fashion. The L3 intervertebral space was identified, anesthetized locally with 1% lidocaine without epinephrine, and the spinal needle was inserted through the skin with the bevel parallel to the dural fibers. The needle was carefully advanced into the lumbar cistern and 4 tubes of clear CSF was obtained. The stylet was replaced and the needle was removed. A bandaid was placed and the patient was placed in the supine position. The patient tolerated the procedure well and there were no complications. ECG Indication: other (headache) Rate (beats per minute): 85 Rhythm: normal sinus Findings: no ectopy, other (no injury) ED Course 1905: Previous medical records were reviewed. The patient was evaluated in room C10. A complete history and physical examination was performed. 1924: Zofran 8mg IV, Rocephin Inj 1gm IV, Sodium Chloride 1000 ml @ 999 mls/hr IV 1929: Morphine Sulfate Inj 4mg IV 1999: Buffered Lidocaine 1% Inj 20ml Infil 2220: On reevaluation, the patient is doing well. I discussed the results and findings with the patient. She verbalized agreement of the treatment plan. She was discharged home. Medical Decision Differential includes: Acute intracranial bleed, trauma, meningitis, encephalitis, increased intracranial pressure, mass or mass effect, facial or dental infection, temporal arteritis, CVA, TIA, acute hypertensive emergency, sinusitis, carbon monoxide exposure. This is a 26-year-old female who presents to the ED with a chief complaint of a headache. The patient states that she has a history of idiopathic intracranial hypertension and is on a acetazolamide. Today she has had some body aches and some light sensitivity. The patient reports also having a sore throat. She has seen Dr. Thakur for this in the past. The patient's temperature today is 38.2. Throat appears clear. There is some mild anterior lymphadenopathy. The lungs are clear. Abdomen soft and nontender. She has no rashes. An EKG shows a normal sinus rhythm, CT scan of the head is negative for acute disease. CT scan of the sinuses reveals some minimal chronic sinus disease. A chest x-ray was negative for acute disease. CBC is normal, sedimentation rate is normal. D -dimer was negative, flu swab was negative. test was negative. Urine test did not show infection. CRP is slightly elevated. Troponin was negative. Complete metabolic panel was otherwise unremarkable. Lumbar puncture was performed. Lumbar fluid was clear. There is no sign of meningitis. The opening pressure was elevated at 42. A total of approximately 10 mL of spinal fluid was removed. This is consistent with the patient's previous diagnosis for which she takes acetazolamide. The patient was treated with IV fluids, IV morphine, IV Zofran and given 1 dose of IV Rocephin. Based on the results the test, and feel the patient is safe for discharge. She is feeling much better. Her fever is likely related to a viral syndrome. Medication Reconcilliation Current Medication List: was personally reviewed by me Blood Pressure Screening Patient's blood pressure: Normal blood pressure Impression Primary Impression: Headache Additional Impressions: Idiopathic intracranial hypertension Fever Scribe Attestation The scribe's documentation has been prepared under my direction and personally reviewed by me in its entirety. I confirm that the note above accurately reflects all work, treatment, procedures, and medical decision making performed by me. Departure Information Dispostion Home / Self-Care Referrals Lynette Jorge D.O. (PCP) Patient Instructions [facility] Additional Instructions Follow-up with your doctor for further care and evaluation in 3-5 days. Return to the emergency department for worsening or new symptoms or any concerns. You have been examined and treated today on an emergency basis only. This is not a substitute for, or an effort to provide, complete comprehensive medical care. It is impossible to recognize and treat all injuries or illnesses in a single emergency department visit. It is therefore important that you follow up closely with your doctor. Call as soon as possible for an appointment. Problem Qualifiers
== END 2017-04-10 23:01 | disposition home or self-care (01) ==
LOC: C.EDB 18:54 → C.EDC 23:01
DX: R51 Headache (principal); G93.2 Benign intracranial hypertension; R50.9 Fever, unspecified; J45.909 Unspecified asthma, uncomplicated; Z80.9 Family history of malignant neoplasm, unspecified; Z83.3 Family history of diabetes mellitus; Z82.49 Family history of ischemic heart disease and other diseases of the circulatory system

== ENCOUNTER 2017-05-06 19:41 | Emergency (ER) | payer OTHER ==
[~2017-05-06] VITALS: Ht 165.1 cm; Wt 83.4 kg
[2017-05-06 19:45] VITALS: TEMP 37; Ht 165.1 cm; Wt 83.4 kg
[2017-05-06] MEDS ORDERED: TPM25 PO (19:59)
[2017-05-06] MEDS ORDERED: [UNRECOGNIZED DRUG - CODE] PO (19:59)
[2017-05-06] MEDS ORDERED: DiphenhydrAMINE HCL 50 MG/ML VIAL IV STA (20:23)
[2017-05-06] MEDS ORDERED: METOCLOPRAMIDE HCL INJ 5 MG/ML 2 ML VIAL IV STA (20:23)
[2017-05-06] MEDS ORDERED: SODIUM CHLORIDE 0.9% 1000ML 1,000 ML IV STA (20:23)
[2017-05-06] MEDS ORDERED: DEXAMETHASONE SOD INJ 10 MG/ML VIAL IV ONE (20:30)
[2017-05-06 20:41] VITALS: O2SAT 98
--- NOTE | 2017-05-06 20:42 | DIAGNOSTIC IMAGING REPORT ---
CHEST ONE VIEW PORTABLE CLINICAL HISTORY: CHEST PAIN pain COMPARISON STUDY: 04/10/2017 FINDINGS: The bones soft tissues and hemidiaphragms are normal. The cardiomediastinal silhouette is normal. The lungs are clear. The pulmonary vasculature is normal. IMPRESSION: Negative chest. The above report was generated using voice recognition software. It may contain grammatical, syntax or spelling errors. Electronically signed by: Francisco Jackson M.D. 05/06/2017 8:41 PM Dictated Date/Time: 05/06/2017 8:41 PM
[2017-05-06 20:54] LABS: BASO % 0.7 %; BASO ABS # 0.05 K/uL (0-0.2); COMPLETE YES; EOS % 5.9 %; HEMATOCRIT 40.6 % (37-47); IG% 0.1 %; LYMPH % 41.3 %; LYMPH ABS # 3.09 K/uL (1.2-3.4); MEAN CELL VOLUME 83.5 fL (80-100); MEAN CORPUSCULAR HEMOGLOBIN 28.4 pg (25-34); MEAN PLATELET VOLUME 9.6 fL (7.4-10.4); MONO % 7.5 %; NEUT % 44.5 %; PLATELET COUNT 267 K/uL (130-400); RED BLOOD COUNT 4.86 M/uL (4.2-5.4); WHITE BLOOD COUNT 7.48 K/uL (4.8-10.8)
--- NOTE | 2017-05-06 21:00 | EMERGENCY ROOM VISIT NOTE ---
History Report prepared by Arya: Amy Hastings Under the Supervision of: Dr. Christian Diaz M.D. First contact with patient: 19:56 Chief Complaint: HEADACHE Stated Complaint: SEVERE MIGRANE, EYE PAIN, VISION PROBLEMS, BLURRY History of Present Illness The patient is a 27 year old female who presents to the Emergency Room with complaints of persistent headache starting 5 days ago. The patient has a history of intracranial hypertension. She has been having headaches intermittently for the past month. Her current headache started 5 days ago. She reports nausea, vomiting, diarrhea, and vision problems. She vomited 2 times yesterday and had 1 episode of diarrhea yesterday. She states that her vision is going dark, which does not usually happen with her headaches. She reports a "whooshing" in her ears. She has neck pain which she does get with her headaches at times. She denies any fever, chills, cough, congestion, or urinary symptoms. She has had imaging of her head which showed demyelination. She denies having a diagnosis of MS. She denies any chance of . Source of History: patient Onset: 5 days ago Position: head Quality: ache Timing: other (persistent) Associated Symptoms: + neck pain, + nausea, + vomiting, + diarrhea, No fevers, No chills, No cough, No urinary symptoms Note: Pt reports vision problems, whooshing sound in ears. Pt denies congestion. Review of Systems See HPI for pertinent positives and negatives. A total of ten systems were reviewed and were otherwise negative. Past Medical & Surgical Medical Problems: (1) Asthma, moderate persistent (2) uterine contractions in third trimester, antepartum Surgical Problems: (1) History of Amadou fundoplication Family History Cancer Diabetes mellitus FH: lupus MOTHER Heart disease Hypertension Social History Smoking Status: Never Smoker Alcohol Use: none Drug Use: none Marital Status: Housing Status: lives with family Occupation Status: employed Current/Historical Medications Scheduled Acetazolamide (Acetazolamide ER), 500 MG PO BID Acetazolamide (Diamox), 1 CAP PO TID Topiramate (Topiramate), 25 MG PO BID Allergies Coded Allergies: Sulfa Drugs (Verified Allergy, Unknown, HIVES, 05/06/17) Sulfamethoxazole w/Trimethoprim (Verified Allergy, Unknown, HIVES, 05/06/17 ) Physical Exam Vital Signs Date Time Temp Pulse Resp B/P (MAP) Pulse Ox O2 Delivery O2 Flow Rate FiO2 05/06/17 23:54 72 18 116/73 96 05/06/17 22:22 67 05/06/17 21:58 58 19 112/72 96 Room Air 05/06/17 20:41 98 Room Air 05/06/17 20:41 98 Room Air 05/06/17 19:45 37.0 73 18 121/75 98 Room Air Physical Exam GENERAL: Awake, alert, appears uncomfortable, photophobic, in no distress HENT: Normocephalic, atraumatic. Dry mucous membranes. EYES: Normal conjunctiva. Sclera non-icteric. No disconjugate gaze. Pupils equal and reactive. NECK: Supple. No nuchal rigidity. FROM. No JVD. Negative Kernig's and Brudzinski 's sign. RESPIRATORY: Clear to auscultation. CARDIAC: Regular rate, normal rhythm. Extremities warm and well perfused. Pulses equal. ABDOMEN: Soft, non-distended. No tenderness to palpation. No rebound or guarding. No masses. RECTAL: Deferred. MUSCULOSKELETAL: Chest examination reveals no tenderness. The back is symmetrical on inspection without obvious abnormality. There is no CVA tenderness to palpation. No joint edema. LOWER EXTREMITIES: Calves are equal size bilaterally and non-tender. No edema. No discoloration. NEURO: Neurologically intact. Normal sensorium. No sensory or motor deficits noted. SKIN: No rash or jaundice noted. Medical Decision & Procedures ER Provider Diagnostic Interpretation: Radiology results as stated below per my review and radiologist interpretation: CHEST ONE VIEW PORTABLE CLINICAL HISTORY: CHEST PAIN pain COMPARISON STUDY: 04/10/2017 FINDINGS: The bones soft tissues and hemidiaphragms are normal. The cardiomediastinal silhouette is normal. The lungs are clear. The pulmonary vasculature is normal. IMPRESSION: Negative chest. The above report was generated using voice recognition software. It may contain grammatical, syntax or spelling errors. Electronically signed by: Francisco Jackson M.D. 05/06/2017 8:41 PM Dictated Date/Time: 05/06/2017 8:41 PM Laboratory Results 05/06/17 20:40 Red Blood Count 4.86, Mean Corpuscular Volume 83.5, Mean Corpuscular Hemoglobin 28.4, Mean Corpuscular Hemoglobin Concent 34.0, Mean Platelet Volume 9.6, Neutrophils (%) (Auto) 44.5, Lymphocytes (%) (Auto) 41.3, Monocytes (%) (Auto) 7.5, Eosinophils (%) (Auto) 5.9, Basophils (%) (Auto) 0.7, Neutrophils # (Auto) 3.33, Lymphocytes # (Auto) 3.09, Monocytes # (Auto) 0.56, Eosinophils # (Auto) 0.44, Basophils # (Auto) 0.05 05/06/17 20:40 Test 05/06/17 20:40 White Blood Count 7.48 K/uL (4.8-10.8) Red Blood Count 4.86 M/uL (4.2-5.4) Hemoglobin 13.8 g/dL (12.0-16.0) Hematocrit 40.6 % (37-47) Mean Corpuscular Volume 83.5 fL (80-100) Mean Corpuscular Hemoglobin 28.4 pg (25-34) Mean Corpuscular Hemoglobin Concent 34.0 g/dl (32-36) Platelet Count 267 K/uL (130-400) Mean Platelet Volume 9.6 fL (7.4-10.4) Neutrophils (%) (Auto) 44.5 % Lymphocytes (%) (Auto) 41.3 % Monocytes (%) (Auto) 7.5 % Eosinophils (%) (Auto) 5.9 % Basophils (%) (Auto) 0.7 % Neutrophils # (Auto) 3.33 K/uL (1.4-6.5) Lymphocytes # (Auto) 3.09 K/uL (1.2-3.4) Monocytes # (Auto) 0.56 K/uL (0.11-0.59) Eosinophils # (Auto) 0.44 K/uL (0-0.5) Basophils # (Auto) 0.05 K/uL (0-0.2) RDW Standard Deviation 44.9 fL (36.4-46.3) RDW Coefficient of Variation 14.5 % (11.5-14.5) Immature Granulocyte % (Auto) 0.1 % Immature Granulocyte # (Auto) 0.01 K/uL (0.00-0.02) Anion Gap 7.0 mmol/L (3-11) Est Creatinine Clear Calc Drug Dose 91.8 ml/min Estimated GFR () 91.2 Estimated GFR (Non- 78.6 BUN/Creatinine Ratio 16.1 (10-20) Calcium Level 9.7 mg/dl (8.5-10.1) Total Bilirubin 0.2 mg/dl (0.2-1) Direct Bilirubin < 0.1 mg/dl (0-0.2) Aspartate Amino Transf (AST/SGOT) 14 U/L (15-37) Alanine Aminotransferase (ALT/SGPT) 18 U/L (12-78) Alkaline Phosphatase 99 U/L (45-117) Total Protein 7.4 gm/dl (6.4-8.2) Albumin 3.8 gm/dl (3.4-5.0) Lipase 155 U/L (73-393) Human Chorionic Gonadotropin, Qual NEG (NEG) Laboratory results reviewed by me Medications Administered Medications (Trade) Dose Ordered Sig/Cheryl Route Start Time Stop Time Status Last Admin Dose Admin Sodium Chloride 1,000 ml @ 999 mls/hr Q1H1M STAT IV 05/06/17 20:23 05/06/17 21:23 DC 05/06/17 20:47 999 MLS/HR Metoclopramide HCl (Reglan Inj) 10 mg NOW STAT IV 05/06/17 20:23 05/06/17 20:26 DC 05/06/17 20:47 10 MG Diphenhydramine HCl (Benadryl Inj) 25 mg NOW STAT IV 05/06/17 20:23 05/06/17 20:26 DC 05/06/17 20:47 25 MG Dexamethasone Sodium Phosphate (Decadron Inj) 10 mg NOW ONCE IV 05/06/17 20:30 05/06/17 20:31 DC 05/06/17 20:47 10 MG Acetazolamide Sodium 500 mg/ Dextrose 105 ml @ 100 mls/hr NOW STAT IV 05/06/17 21:57 05/06/17 22:59 DC 05/06/17 22:32 100 MLS/HR ECG Indication: other Rate (beats per minute): 55 Rhythm: sinus bradycardia Findings: other (normal axis, nonspecific T wave abnormality) ED Course 2000: The patient was evaluated in room C7. A complete history and physical exam was performed. 2022: Benadryl Inj 25 mg IV, Reglan Inj 10 mg IV, NSS 1000 ml @ 999 mls/hr IV. 2030: Decadron Inj 10 mg IV. 2125: I discussed the patients case with Dr. Thakur, [facility] He is familiar with the patients case. He states that at [place], they did a blood patch because they thought that it might be a post LP headache. With regards to the demyelination, they are still working that up. The patient had a negative MS profile, but he states that that is not definitive. He recommends increased acetazolamide and consider a LP if she is agreeable at the risk of a post LP headache. 2154: I reevaluated the patient. She prefers to just try the acetazolamide and defer the LP. She will go home and try to sleep it off. I discussed the results with her. She verbalized agreement of the treatment plan. She was discharged home. 2156: Acetazolamide Sodium 500 mg/Dextrose 105 ml @ 100 mls/hr IV. Medical Decision Differential diagnosis: idiopathic intracranial hypertension, migraine, intracranial hemorrhage, meningitis, tension headache, dehydration, electrolyte abnormality. I reviewed the patient's past medical history, medications, and the nursing notes as described above. The patient is a 27-year-old woman with a complicated recent past medical history of headaches with a diagnosis of idiopathic intracranial hypertension on acetazolamide and Topamax who presents emergency Department with persistent waxing and waning of her headaches being seen here on 04/10 subsequently seen 04/11- 04/13 at [facility] similar symptoms per history of present illness. On arrival the patient appears uncomfortable, photophobic. AFVSS. Neck is supple with negative kernigs/Brudzinski's sign. LEXIS, EOMi without dysconjugate gaze. Case was d/w Dr. Thakur, patient's neurologist who is familiar with patient. Agrees that since patient has had numerous imaging studies this month that this could be deferred at this time and can treat symptomatically. Recommends increasing patient's Acetazolamide to TID and to consider LP and patient can f/ u up in clinic. Options d/w patient for further tx with Acetazolamide with or without LP and admission vs d/c based on her sx. Patient prefers to defer LP at this time and would like to attempt the approach by increasing her acetazolamide seeing if this helps over the next couple of days. Findings and plan for follow-up reviewed with patient. Patient agreeable and d/c'd per discharge instructions. Medication Reconcilliation Current Medication List: was personally reviewed by me Blood Pressure Screening Patient's blood pressure: Normal blood pressure Blood pressure disposition: Did not require urgent referral Consults Time Called: 2123 Consulting Physician: Dr. Thakur, [facility] Returned Call: 2125 I discussed the patients case with him. He is familiar with the patients case. He states that at [place], they did a blood patch because they thought that it might be a post LP headache. With regards to the demyelination, they are still working that up. The patient had a negative MS profile, but he states that that is not definitive. He recommends increased acetazolamide and consider a LP if she is agreeable at the risk of a post LP headache. Impression Primary Impression: Migraine Additional Impression: Intracranial hypertension Scribe Attestation The scribe's documentation has been prepared under my direction and personally reviewed by me in its entirety. I confirm that the note above accurately reflects all work, treatment, procedures, and medical decision making performed by me. Departure Information Prescriptions Acetazolamide (DIAMOX) 500 Mg Cap 1 CAP PO TID for 14 Days, #42 CAP Prov: Christian Diaz M.D. 05/06/17 Referrals Lynette Jorge D.OAkbar (PCP) Enrique Thakur M.D. Patient Instructions ED Headache Migraine, My [facility] Additional Instructions Please follow up with your neurologist in the next 1-3 days for re-evaluation. Your exam, chest xray, and lab results did not show signs of an emergent condition at this time. Begin taking your Acetazolamide three times daily as prescribed. Continue your Topiramate as prescribed. Return to the emergency department for worsening symptoms as described in the accompanying instructions. Problem Qualifiers
[2017-05-06 21:10] LABS: ALT/SGPT 18 U/L (12-78); BLOOD UREA NITROGEN 16 mg/dl (7-18); BUN/CREATININE RATIO 16.1 (10-20); CALCIUM 9.7 mg/dl (8.5-10.1); CARBON DIOXIDE 29 mmol/L (21-32); CHLORIDE 104 mmol/L (98-107); CREATININE 0.99 mg/dl (0.60-1.20); GLUCOSE 95 mg/dl (70-99); POTASSIUM 3.4 mmol/L (3.5-5.1); SODIUM 140 mmol/L (136-145)
[2017-05-06 21:13] LABS: ALKALINE PHOSPHATASE 99 U/L (45-117); AST/SGOT 14 U/L (15-37)
[2017-05-06] MEDS ORDERED: ACETAZOLAMIDE IV INFUSION 500 MG in DEXTROSE 5% 100ML 100 ML IV STA (21:57)
[2017-05-06] MEDS ORDERED: ACET500C35 PO (23:27)
[2017-05-06 23:29] LABS: PREG INTERNAL NEGATIVE QC NEG CLEAR BACKGROUND; PREG INTERNAL POSITIVE QC POS CONTROL LINE
[2017-05-06 23:54] VITALS: BP 116/73; PULSE 72; O2SAT 96
== END 2017-05-06 23:55 | disposition home or self-care (01) ==
LOC: C.EDB 19:42 → C.EDC 23:55
DX: G43.909 Migraine, unspecified, not intractable, without status migrainosus (principal); G93.2 Benign intracranial hypertension; J45.909 Unspecified asthma, uncomplicated; Z80.9 Family history of malignant neoplasm, unspecified; Z83.3 Family history of diabetes mellitus; Z82.49 Family history of ischemic heart disease and other diseases of the circulatory system

== ENCOUNTER 2017-07-17 20:58 | Emergency (ER) | payer OTHER ==
[~2017-07-17] VITALS: Ht 165.1 cm; Wt 80.1 kg
[~2017-07-17 20:58] MED LIST changes: +ACET500C35 PO; -FENU1CAP2 PO; -PRENTAB26 PO; +TPM25 PO; +[UNRECOGNIZED DRUG - CODE] PO; -albuterol inhaler INH
[2017-07-17 21:04] VITALS: TEMP 36.9; Ht 165.1 cm; Wt 80.1 kg
[2017-07-17] MEDS ORDERED: METHYLPREDNISOLONE 125 MG VIAL IV STA (21:41)
[2017-07-17] MEDS ORDERED: SODIUM CHLORIDE 0.9% 1000ML 1,000 ML IV STA (21:41)
[2017-07-17] MEDS ORDERED: ALBUT/IPRATROP 3MG/0.5MG NEB 3 ML VIAL INH ONE (21:45)
--- NOTE | 2017-07-17 21:52 | EMERGENCY ROOM VISIT NOTE ---
History Report prepared by Arya: Joshua Samaniego Under the Supervision of: Dr. Ishmael Nazario M.D. First contact with patient: 21:13 Chief Complaint: COUGH Stated Complaint: COUGH,ASTHMA,CONGESTION,CRANT BREATHE Nursing Triage Summary: Pt reports she has had cough and cold symptoms x3 days. Saw PCP and using robitussin and tea. No tylenol or motrin. Reports she is currently breast feeding. Pt reports her symptoms worse when sleeping and she often wakes up chocking with mucus. Reports she does sleep "with a wedge" and not flat. Hx of asthma. History of Present Illness The patient is a 27 year old black female with a past medical history of asthma and RSV who presents to the ED with a cc of a worsening cough beginning four days ago. Symptoms are worse when she is sleeping. Coughs to the point she vomits. Positive drainage from nose, hoarse voice, sorethroat, using copious amounts of nebulizers. Pt states the nebulizer would work until two hours into her sleep. She would have to use her nebulizer again. Negative receiving a flu shot this year, history of smoking. Pt is currently on a Z-pack that she received two days ago from [facility] walk-in clinic. She took 60 of prednisone earlier today. Pt was intubated a few years ago for her respiratory history. Source of History: patient Onset: four days ago Position: other (global) Quality: other (cough) Timing: worsening Modifying Factors (Worsening): other (when sleeping) Associated Symptoms: + sorethroat, + vomiting Note: Associated symptoms: hoarse voice, drainage from nose, using copious amounts of nebulizers Denies: receiving a flu shot, history of smoking Review of Systems See HPI for pertinent positives and negatives. A total of ten systems were reviewed and were otherwise negative. Past Medical & Surgical Medical Problems: (1) Asthma, moderate persistent (2) uterine contractions in third trimester, antepartum Surgical Problems: (1) History of Amadou fundoplication Family History Cancer Diabetes mellitus FH: lupus MOTHER Heart disease Hypertension Social History Smoking Status: Never Smoker Alcohol Use: none Drug Use: none Marital Status: Housing Status: lives with family Occupation Status: employed Current/Historical Medications Scheduled Acetazolamide (Acetazolamide ER), 500 MG PO BID Acetazolamide (Acetazolamide Er), 500 MG PO TID Azithromycin (Azithromycin), 250 MG PO UD Prednisone (Prednisone), 20 MG PO UD Topiramate (Topiramate), 100 MG PO BID Allergies Coded Allergies: Sulfa Drugs (Verified Allergy, Unknown, HIVES, 05/06/17) Sulfamethoxazole w/Trimethoprim (Verified Allergy, Unknown, HIVES, 05/06/17 ) Physical Exam Vital Signs Date Time Temp Pulse Resp B/P (MAP) Pulse Ox O2 Delivery O2 Flow Rate FiO2 07/18/17 01:04 93 18 126/63 95 07/17/17 23:50 93 18 110/65 99 Nebulizer 07/17/17 23:26 86 07/17/17 22:30 72 13 130/83 98 Room Air 07/17/17 21:56 95 Room Air 07/17/17 21:17 95 Room Air 07/17/17 21:04 36.9 88 24 108/69 96 Room Air Physical Exam GENERAL: Awake, alert, well-appearing, non-toxic, mild distress HENT: Normocephalic, atraumatic. No tonsillar swelling. Mild exudate to the right posterior pharynx. EYES: Normal conjunctiva. Sclera non-icteric. NECK: Supple. No nuchal rigidity. FROM. No stridor. RESPIRATORY: Diffuse INSP, EXSP throughout. CARDIAC: RRR, no MRG ABDOMEN: Soft, NTND, BS+ MSK: No chest wall TTP, no LE edema NEURO: GCS 15, CN 2-12 intact, moves all 4s on command SKIN: No rash or jaundice noted. Medical Decision & Procedures ER Provider Diagnostic Interpretation: X-ray: Per my interpretation, radiologist review. CHEST ONE VIEW PORTABLE HISTORY: 27 years-old Female EVALUATE RESPIRATORY DISTRESS.DYSPNEA acute respiratory distress COMPARISON: Chest radiograph 05/06/2017 TECHNIQUE: Portable AP view of the chest FINDINGS: Cardiomediastinal and hilar silhouettes are within normal limits. No pneumothorax, pleural effusion, or airspace consolidation or overt pulmonary edema. Bones of the chest are grossly intact. IMPRESSION: No acute cardiopulmonary process. The above report was generated using voice recognition software. It may contain grammatical, syntax or spelling errors. Electronically signed by: Robert Cornejo M.D. 07/17/2017 10:38 PM Dictated Date/Time: 07/17/2017 10:38 PM Laboratory Results 07/17/17 21:52 Red Blood Count 4.58, Mean Corpuscular Volume 81.7, Mean Corpuscular Hemoglobin 27.7, Mean Corpuscular Hemoglobin Concent 34.0, Mean Platelet Volume 9.7, Neutrophils (%) (Auto) 44.8, Lymphocytes (%) (Auto) 43.3, Monocytes (%) (Auto) 8.0, Eosinophils (%) (Auto) 3.3, Basophils (%) (Auto) 0.5, Neutrophils # (Auto) 4.55, Lymphocytes # (Auto) 4.40, Monocytes # (Auto) 0.81, Eosinophils # (Auto) 0.33, Basophils # (Auto) 0.05 07/17/17 21:52 Test 07/17/17 21:45 07/17/17 21:52 Influenza Type A Antigen Neg for Influ A (NEG) Influenza Type B Antigen Neg for Influ B (NEG) White Blood Count 10.15 K/uL (4.8-10.8) Red Blood Count 4.58 M/uL (4.2-5.4) Hemoglobin 12.7 g/dL (12.0-16.0) Hematocrit 37.4 % (37-47) Mean Corpuscular Volume 81.7 fL (80-100) Mean Corpuscular Hemoglobin 27.7 pg (25-34) Mean Corpuscular Hemoglobin Concent 34.0 g/dl (32-36) Platelet Count 287 K/uL (130-400) Mean Platelet Volume 9.7 fL (7.4-10.4) Neutrophils (%) (Auto) 44.8 % Lymphocytes (%) (Auto) 43.3 % Monocytes (%) (Auto) 8.0 % Eosinophils (%) (Auto) 3.3 % Basophils (%) (Auto) 0.5 % Neutrophils # (Auto) 4.55 K/uL (1.4-6.5) Lymphocytes # (Auto) 4.40 K/uL (1.2-3.4) Monocytes # (Auto) 0.81 K/uL (0.11-0.59) Eosinophils # (Auto) 0.33 K/uL (0-0.5) Basophils # (Auto) 0.05 K/uL (0-0.2) RDW Standard Deviation 47.6 fL (36.4-46.3) RDW Coefficient of Variation 15.8 % (11.5-14.5) Immature Granulocyte % (Auto) 0.1 % Immature Granulocyte # (Auto) 0.01 K/uL (0.00-0.02) Anion Gap 7.0 mmol/L (3-11) Est Creatinine Clear Calc Drug Dose 84.1 ml/min Estimated GFR () 83.9 Estimated GFR (Non- 72.4 BUN/Creatinine Ratio 18.3 (10-20) Calcium Level 9.0 mg/dl (8.5-10.1) Laboratory results reviewed by me Medications Administered Medications (Trade) Dose Ordered Sig/Cheryl Route Start Time Stop Time Status Last Admin Dose Admin Albuterol/ Ipratropium (Duoneb) 12 ml ONE ONCE INH 07/17/17 21:45 07/17/17 21:46 DC 07/17/17 21:50 12 ML Methylprednisolone Sodium Succinate (Solu-Medrol IV) 125 mg NOW STAT IV 07/17/17 21:41 07/17/17 21:45 DC 07/17/17 22:32 125 MG Potassium Chloride (Klor-Con Tab) 40 meq NOW STAT PO 07/17/17 23:06 07/17/17 23:07 DC 07/17/17 23:19 40 MEQ Albuterol/ Ipratropium (Duoneb) 12 ml ONE STAT INH 07/17/17 23:29 07/17/17 23:30 DC 07/17/17 23:29 12 ML ECG Indication: SOB/dyspnea Rate (beats per minute): 78 Rhythm: normal sinus Findings: T-wave inversion (Leads III, AVF, V2, and V3), other (Normal intervals and axis) Comparison ECG Date: 04/05/17 Change: no significant change ED Course 6: The patient was evaluated in room C06. A complete history and physical exam was performed. 8: I reevaluated the patient and updated her of her results. She looks and feels better, but she is still congested. She is receiving another nebulizer. 0021: I reevaluated the patient. She still has trace expiatory wheezing. I gave her precautions and to follow up with her PCP. Discussed results and discharge instructions: she verbalized understanding and agreement. The patient is ready for discharge. Medical Decision The patient is a 27 year old black female with a past medical history of asthma and RSV who presents to the ED with a cc of a worsening cough beginning four days ago. Differential diagnosis: Etiologies such as infections, reactive airway disease, pneumonia, pneumothorax , COPD, CHF, cardiac ischemia, pulmonary embolism, musculoskeletal, gastrointestinal, as well as others were entertained. Patient was seen and evaluated the bedside. Patient states that she's been having some URI-type symptoms along with some cough and wheezing that of been ongoing for several days. Patient states she was recently seen and given a prednisone taper in addition to an azithromycin pack. Patient has been using her nebulizer treatments every 2 hours. She states initially she feels well and gets much worse. Patient has not been intubated in several years. On exam patient is have inspiratory and expiratory wheezing throughout. Patient is not hypoxic. Patient did have an hour-long neb completed along with blood work chest x-ray and EKG. Patient's EKG did show some T-wave inversions however these are old. Patient's chest x-ray was clear. Patient did not have an elevated white count. Her white blood cell count was 10,000. Patient did have some mild hypokalemia and she was given some potassium; however, some of this hypokalemia may be related to the albuterol shifting the potassium. Patient rapid strep negative. Patient did state that her initial hour-long DuoNeb was spilled and so it was somewhat abbreviated. Patient was reassessed and given her continued wheezing she was given another hour-long neb. Patient was also given IV steroids. Upon reevaluation after her second neb treatment the patient looked much improved was tolerating by mouth and speaking in full sentences without difficulty. Patient was mildly tachycardic which is likely somewhat related to the albuterol use. Patient was able tolerate by mouth this was deemed suitable for any sort of dehydration that may be due to extra sensory losses related to her respiratory complaints. Patient was told to continue her steroids as well as her azithromycin. Patient was also given counseling on how to use her albuterol of the next several days. Patient flu was negative. Patient was given hand hygiene given that she has small children at home. Patient was deemed suitable for outpatient follow-up and treatment. Patient was given strict follow-up, discharge, and return precautions. All questions were answered. Patient was deemed suitable for outpatient follow-up at this time. Patient agreed with the plan of care and was safely discharged home. Impression Primary Impression: Asthma with acute exacerbation in adult Additional Impressions: Cough Upper respiratory infection Scribe Attestation The scribe's documentation has been prepared under my direction and personally reviewed by me in its entirety. I confirm that the note above accurately reflects all work, treatment, procedures, and medical decision making performed by me. Departure Information Dispostion Home / Self-Care Referrals Lynette Jorge D.O. (PCP) Forms HOME CARE DOCUMENTATION FORM, IMPORTANT VISIT INFORMATION Patient Instructions Asthma Control, Asthma Dc, Asthma Trigger Checklist, My [facility] Additional Instructions Please return to the emergency department if you have worsening or recurrent symptoms not amenable to at-home treatment. Please call for a follow-up appointment with her primary care physician. Please take your medications as prescribed. If you have other concerns and/or complaints please feel free to also call your primary care physician's office or return the ED for further evaluation, management, and treatment. You may take tylenol 1000 mg every 6 hours as needed for pain. You may take an occasional Motrin if needed. Please continue taking her steroids and antibiotics preferably with food in the morning. Take 2 puffs of your albuterol every 4 hours 1 day, then one puff every 4 hours the second day, take 2 puffs of your albuterol every 6 hours on the third day, then one puff every 6 hours the fourth day, Take your medications as prescribed. If taking an antibiotic consider taking a probiotic and/or eating yogurt, but at the least, please take with food as it can cause upset stomach. If culture results are not available at discharge, if they are positive for concern of infection, you will be informed of the results as soon as they are available. If you were seen between 11pm and 7AM all radiology reads will be re-read by our in house staff. If any major discrepancies are discovered, you will be notified. You have been examined and treated today on an emergency basis only. This is not a substitute for, or an effort to provide, complete comprehensive medical care. It is impossible to recognize and treat all injuries or illnesses in a single emergency department visit. It is therefore important that you follow up closely with [facility], your PCP, and/or your specialist(s). Call as soon as possible for an appointment. Thank you for your time and consideration. I look forward to speaking with you again soon. Please don't hesitate to call us if you have any questions. Problem Qualifiers Primary Impression: Asthma with acute exacerbation in adult Asthma severity: moderate Asthma persistence: persistent Qualified Codes: J45.41 - Moderate persistent asthma with (acute) exacerbation Additional Impressions: Upper respiratory infection URI type: unspecified URI Qualified Codes: J06.9 - Acute upper respiratory infection, unspecified
[2017-07-17 21:56] VITALS: O2SAT 95
[2017-07-17] MEDS ORDERED: AZIT-57 PO (22:16)
[2017-07-17] MEDS ORDERED: PRED20TA PO (22:16)
[2017-07-17] MEDS ORDERED: ACET500C12 PO (22:16)
[2017-07-17] MEDS ORDERED: TPM100 PO (22:16)
[2017-07-17 22:26] LABS: BASO % 0.5 %; BASO ABS # 0.05 K/uL (0-0.2); COMPLETE YES; EOS % 3.3 %; HEMATOCRIT 37.4 % (37-47); IG% 0.1 %; LYMPH % 43.3 %; MEAN CELL VOLUME 81.7 fL (80-100); MEAN CORPUSCULAR HEMOGLOBIN 27.7 pg (25-34); MEAN PLATELET VOLUME 9.7 fL (7.4-10.4); NEUT % 44.8 %; PLATELET COUNT 287 K/uL (130-400); RED BLOOD COUNT 4.58 M/uL (4.2-5.4); WHITE BLOOD COUNT 10.15 K/uL (4.8-10.8)
--- NOTE | 2017-07-17 22:40 | DIAGNOSTIC IMAGING REPORT ---
CHEST ONE VIEW PORTABLE HISTORY: 27 years-old Female EVALUATE RESPIRATORY DISTRESS.DYSPNEA acute respiratory distress COMPARISON: Chest radiograph 05/06/2017 TECHNIQUE: Portable AP view of the chest FINDINGS: Cardiomediastinal and hilar silhouettes are within normal limits. No pneumothorax, pleural effusion, or airspace consolidation or overt pulmonary edema. Bones of the chest are grossly intact. IMPRESSION: No acute cardiopulmonary process. The above report was generated using voice recognition software. It may contain grammatical, syntax or spelling errors. Electronically signed by: Robert Cornejo M.D. 07/17/2017 10:38 PM Dictated Date/Time: 07/17/2017 10:38 PM
[2017-07-17 22:43] LABS: BUN/CREATININE RATIO 18.3 (10-20); CREATININE 1.06 mg/dl (0.60-1.20)
[2017-07-17] MEDS ORDERED: POTASSIUM CHLORIDE 20 MEQ TABCR PO STA (23:06)
[2017-07-17] MEDS ORDERED: ALBUT/IPRATROP 3MG/0.5MG NEB 3 ML VIAL INH STA (23:29)
[2017-07-18 01:04] VITALS: BP 126/63; PULSE 93; O2SAT 95
== END 2017-07-18 01:05 | disposition home or self-care (01) ==
LOC: C.EDB 21:00 → C.EDC 07-18 01:05
DX: J45.41 Moderate persistent asthma with (acute) exacerbation (principal); R05 Cough; J06.9 Acute upper respiratory infection, unspecified; Z80.9 Family history of malignant neoplasm, unspecified; Z83.3 Family history of diabetes mellitus; Z82.49 Family history of ischemic heart disease and other diseases of the circulatory system; Z79.899 Other long term (current) drug therapy

== ENCOUNTER 2017-11-29 20:26 | Emergency (ER) | payer OTHER ==
[~2017-11-29] VITALS: Ht 165.1 cm; Wt 77.3 kg
[~2017-11-29 20:26] MED LIST changes: +ACET500C12 PO; -ACET500C35 PO; +AZIT-57 PO; +PRED20TA PO; +TPM100 PO; -TPM25 PO
[2017-11-29 20:35] VITALS: Ht 165.1 cm; Wt 77.3 kg
[2017-11-29 21:10] LABS: BASO % 0.3 %; BASO ABS # 0.03 K/uL (0-0.2); HEMATOCRIT 40.7 % (37-47); HEMOGLOBIN 13.6 g/dL (12.0-16.0); IG# 0.01 K/uL (0.00-0.02); LYMPH % 27.8 %; LYMPH ABS # 2.77 K/uL (1.2-3.4); MEAN CELL VOLUME 82.7 fL (80-100); MEAN CORPUSCULAR HEMOGLOBIN 27.6 pg (25-34); MEAN CORPUSCULAR HGB CONC 33.4 g/dl (32-36); MEAN PLATELET VOLUME 9.7 fL (7.4-10.4); NEUT % 62.8 %; NEUT ABS # 6.27 K/uL (1.4-6.5); PLATELET COUNT 329 K/uL (130-400); RED CELL DISTRIBUTION WIDTH CV 15.4 % (11.5-14.5); RED CELL DISTRIBUTION WIDTH SD 47.1 fL (36.4-46.3); WHITE BLOOD COUNT 9.98 K/uL (4.8-10.8)
[2017-11-29 21:24] LABS: INR 1.1 (0.9-1.1); PTT PATIENT 29.8 SECONDS (21.0-31.0)
--- NOTE | 2017-11-29 21:27 | EMERGENCY ROOM VISIT NOTE ---
History Report prepared by Arya: Pati Armstrong Under the Supervision of: Dr. Jose L Valiente D.O. First contact with patient: 20:48 Chief Complaint: OVERDOSE (ACCIDENTAL) Stated Complaint: MENTAL HEALTH Nursing Triage Summary: patient's friend brought her in through triage stating "she needs help, she needs help!"-patient screaming and inconsolable, immediately brought back to psych portion of ED and triaged there after a minute, the patient did calm down and admit to takin to much topirimate , but does not know how much, states her cheated on her, she really had a headache, is really having a hard time, and admits she was trying to hurt herself, but immediately recanted that comment History of Present Illness The patient is a 27 year old female who presents to the Emergency Room for a mental health evaluation after her friend found her having an abnormal behavior. She reports that she decided to take her Topiramate today, which she is prescribed for headaches, after finding out that her had cheated on her. The patient states that she took her regular dose, which she thinks is about 2 pills when necessary. She is unsure if she took any other medication. The patient reports that she takes medication for intracranial hypertension and denies ever being admitted as an inpatient. She denies any suicidal or homicidal ideations. HPI is limited due to poor cooperation. Source of History: patient History Limited By: poor cooperation Onset: today Position: other (mental health) Quality: other (mental health) Timing: other (persistent) Review of Systems See HPI for pertinent positives & negatives. A total of 10 systems reviewed and were otherwise negative. Past Medical & Surgical Medical Problems: (1) Asthma, moderate persistent (2) uterine contractions in third trimester, antepartum Surgical Problems: (1) History of Amadou fundoplication Family History Cancer Diabetes mellitus FH: lupus MOTHER Heart disease Hypertension Social History Smoking Status: Never Smoker Alcohol Use: none Drug Use: none Marital Status: Housing Status: lives with family Occupation Status: employed Current/Historical Medications Scheduled Acetazolamide (Acetazolamide ER), 500 MG PO BID Topiramate (Topiramate), 100 MG PO BID Allergies Coded Allergies: Sulfa Drugs (Verified Allergy, Unknown, HIVES, 11/29/17) Sulfamethoxazole w/Trimethoprim (Verified Allergy, Unknown, HIVES, 11/29/17 ) Physical Exam Vital Signs Date Time Temp Pulse Resp B/P (MAP) Pulse Ox O2 Delivery O2 Flow Rate FiO2 11/30/17 13:31 36.8 88 18 107/75 99 Room Air 11/30/17 06:08 78 16 122/78 98 Room Air 11/29/17 22:33 14 118/76 11/29/17 22:01 72 16 109/79 97 Room Air 11/29/17 21:20 78 14 117/79 98 Room Air 11/29/17 20:59 85 11/29/17 20:35 37.0 82 16 115/79 98 Room Air Physical Exam GENERAL: Patient is awake, alert, and in no acute distress. Patient is resting comfortably and showing no signs of anxiety. Somewhat guarded appearing and anxious. Very evasive with answers. EYES: The conjunctivae are clear. The pupils are round and reactive. EARS, NOSE, MOUTH AND THROAT: The nose is without any evidence of any deformity. Mucous membranes are moist tongue is midline NECK: The neck is nontender and supple. RESPIRATORY: Normal respiratory effort is noted there is no evidence of wheezing rhonchi or rales CARDIOVASCULAR: Regular rate and rhythm noted there no murmurs rubs or gallops normal S1 normal S2 GASTROINTESTINAL: The abdomen is soft. Bowel sounds are present in all quadrants. Abdomen is nontender MUSCULOSKELETAL/EXTREMITIES: There is no evidence of gross deformity full range of motion is noted in the hips and shoulders SKIN: There is no obvious evidence of any rash. There are no petechiae, pallor or cyanosis noted. NEUROLOGIC: Patient is awake alert and oriented x3 strength is symmetric patellar reflexes are 2+ bilaterally PSYCH: Very evasive. Avoids eye contact. Currently denying any suicidal and homicidal ideations. Medical Decision & Procedures ER Provider Diagnostic Interpretation: [~ rep ct add3]] HEAD WITHOUT CONTRAST (CT) CT DOSE: 591.23 mGy.cm HISTORY: Mental status change OVERDOSE TECHNIQUE: Multiaxial CT images of the head were performed without the use of intravenous contrast. A dose lowering technique was utilized adhering to the principles of ALARA. Comparison: None. Findings: The paranasal sinuses and mastoid air cells are clear. The calvarium and skull base are intact. The ventricles and sulci are within normal limits. There is no mass, hematoma, midline shift, or acute infarct. Impression: No acute intracranial abnormality. The above report was generated using voice recognition software. It may contain grammatical, syntax or spelling errors. Electronically signed by: Francisco Jackson M.D. 11/29/2017 9:34 PM Dictated Date/Time: 11/29/2017 9:33 PM Laboratory Results 11/29/17 20:53 Red Blood Count 4.92, Mean Corpuscular Volume 82.7, Mean Corpuscular Hemoglobin 27.6, Mean Corpuscular Hemoglobin Concent 33.4, Mean Platelet Volume 9.7, Neutrophils (%) (Auto) 62.8, Lymphocytes (%) (Auto) 27.8, Monocytes (%) (Auto) 8.0, Eosinophils (%) (Auto) 1.0, Basophils (%) (Auto) 0.3, Neutrophils # (Auto) 6.27, Lymphocytes # (Auto) 2.77, Monocytes # (Auto) 0.80, Eosinophils # (Auto) 0.10, Basophils # (Auto) 0.03 11/29/17 20:53 Test 11/29/17 20:53 11/29/17 21:18 11/29/17 22:06 White Blood Count 9.98 K/uL (4.8-10.8) Red Blood Count 4.92 M/uL (4.2-5.4) Hemoglobin 13.6 g/dL (12.0-16.0) Hematocrit 40.7 % (37-47) Mean Corpuscular Volume 82.7 fL (80-100) Mean Corpuscular Hemoglobin 27.6 pg (25-34) Mean Corpuscular Hemoglobin Concent 33.4 g/dl (32-36) Platelet Count 329 K/uL (130-400) Mean Platelet Volume 9.7 fL (7.4-10.4) Neutrophils (%) (Auto) 62.8 % Lymphocytes (%) (Auto) 27.8 % Monocytes (%) (Auto) 8.0 % Eosinophils (%) (Auto) 1.0 % Basophils (%) (Auto) 0.3 % Neutrophils # (Auto) 6.27 K/uL (1.4-6.5) Lymphocytes # (Auto) 2.77 K/uL (1.2-3.4) Monocytes # (Auto) 0.80 K/uL (0.11-0.59) Eosinophils # (Auto) 0.10 K/uL (0-0.5) Basophils # (Auto) 0.03 K/uL (0-0.2) RDW Standard Deviation 47.1 fL (36.4-46.3) RDW Coefficient of Variation 15.4 % (11.5-14.5) Immature Granulocyte % (Auto) 0.1 % Immature Granulocyte # (Auto) 0.01 K/uL (0.00-0.02) Prothrombin Time 11.4 SECONDS (9.0-12.0) Prothromb Time International Ratio 1.1 (0.9-1.1) Activated Partial Thromboplast Time 29.8 SECONDS (21.0-31.0) Partial Thromboplastin Ratio 1.1 Anion Gap 8.0 mmol/L (3-11) Est Creatinine Clear Calc Drug Dose 85.9 ml/min Estimated GFR () 87.9 Estimated GFR (Non- 75.9 BUN/Creatinine Ratio 13.4 (10-20) Osmolality 289 mOsm/kg (280-300) Calcium Level 9.1 mg/dl (8.5-10.1) Total Bilirubin 0.4 mg/dl (0.2-1) Direct Bilirubin < 0.1 mg/dl (0-0.2) Aspartate Amino Transf (AST/SGOT) 13 U/L (15-37) Alanine Aminotransferase (ALT/SGPT) 21 U/L (12-78) Alkaline Phosphatase 73 U/L (45-117) Total Creatine Kinase 174 U/L (26-192) Creatine Kinase MB 0.7 ng/ml (0.5-3.6) Creatine Kinase MB Ratio 0.4 (0-3.0) Troponin I < 0.015 ng/ml (0-0.045) Total Protein 7.7 gm/dl (6.4-8.2) Albumin 4.1 gm/dl (3.4-5.0) Lipase 134 U/L (73-393) Human Chorionic Gonadotropin, Qual NEG (NEG) Salicylates Level < 1.7 mg/dl (2.8-20) Acetaminophen Level < 2 ug/ml (10-30) Ethyl Alcohol mg/dL < 3.0 mg/dl (0-3) Bedside Glucose 90 mg/dl (70-90) Urine Color YELLOW Urine Appearance CLEAR (CLEAR) Urine pH 8.0 (4.5-7.5) Urine Specific [place] 1.021 (1.000-1.030) Urine Protein NEG (NEG) Urine Glucose (UA) NEG (NEG) Urine Ketones TRACE (NEG) Urine Occult Blood NEG (NEG) Urine Nitrite NEG (NEG) Urine Bilirubin NEG (NEG) Urine Urobilinogen NEG (NEG) Urine Leukocyte Esterase NEG (NEG) Urine Opiates Screen NEG (NEG) Urine Methadone, Qualitative NEG (NEG) Urine Barbiturates NEG (NEG) Urine Phencyclidine (PCP) Level NEG (NEG) Ur Amphetamine/Methamphetamine NEG (NEG) MDMA (Ecstasy) Screen NEG (NEG) Urine Benzodiazepines Screen NEG (NEG) Urine Cocaine Metabolite NEG (NEG) Urine Marijuana (THC) NEG (NEG) Laboratory results per my review. ED Course 2058: The patient was evaluated in room A8. A complete history and physical examination were performed. 0030: Discussed the patient's case with Dr. Stevens at the change of shift. The patient is a 302. Bed search is currently ongoing. Medical Decision Prior records/ancillary studies reviewed. Triage Nursing notes reviewed. Additional history obtained from patient's friend. The patient's history was concerning for possible psychiatric disturbance. Differential diagnosis: Etiologies such as mood disorder, infection, hypoglycemia, electrolyte abnormalities, cardiac sources, intracerebral event, toxicologic, neurologic, as well as others were entertained. The patient is a 27-year-old female who presented to the emergency department for an evaluation of mental health problems. The patient was having an argument with her significant other. There was some rumors of infidelity but ultimately the patient at one point admitted that she took her prescription medications in an attempt to hurt herself. When the patient arrived in the emergency department for my evaluation she was very vague and evasive. She even had some inappropriate behavior. The patient had very poor insight. I discussed the patient's laboratory and radiographic studies with her. She was medically cleared in the emergency department. She was evaluated by the mental health bottle caser. At this time I feel the patient is in need of involuntary admission given her poor insight into her overall condition. For this reason a 302 petition was filled out by myself. At this time bed search is underway. Patient was signed out to the night physician at change of shift. Please see her note for continuation of care and final disposition. Medication Reconcilliation Current Medication List: was personally reviewed by me Blood Pressure Screening Patient's blood pressure: Normal blood pressure Blood pressure disposition: Did not require urgent referral Impression Primary Impression: Anxiety Additional Impression: Suicidal ideation Scribe Attestation The scribe's documentation has been prepared under my direction and personally reviewed by me in its entirety. I confirm that the note above accurately reflects all work, treatment, procedures, and medical decision making performed by me. Departure Information Dispostion Still a Patient Referrals No Doctor, Assigned (PCP) Forms HOME CARE DOCUMENTATION FORM, IMPORTANT VISIT INFORMATION, WORK / SCHOOL INSTRUCTIONS Patient Instructions [facility] Problem Qualifiers
--- NOTE | 2017-11-29 21:35 | DIAGNOSTIC IMAGING REPORT ---
HEAD WITHOUT CONTRAST (CT) CT DOSE: 591.23 mGy.cm HISTORY: Mental status change OVERDOSE TECHNIQUE: Multiaxial CT images of the head were performed without the use of intravenous contrast. A dose lowering technique was utilized adhering to the principles of ALARA. Comparison: None. Findings: The paranasal sinuses and mastoid air cells are clear. The calvarium and skull base are intact. The ventricles and sulci are within normal limits. There is no mass, hematoma, midline shift, or acute infarct. Impression: No acute intracranial abnormality. The above report was generated using voice recognition software. It may contain grammatical, syntax or spelling errors. Electronically signed by: Francisco Jackson M.D. 11/29/2017 9:34 PM Dictated Date/Time: 11/29/2017 9:33 PM
[2017-11-29 21:52] LABS: ALBUMIN 4.1 gm/dl (3.4-5.0); ALT/SGPT 21 U/L (12-78); AST/SGOT 13 U/L (15-37); BLOOD UREA NITROGEN 14 mg/dl (7-18); CALCIUM 9.1 mg/dl (8.5-10.1); CARBON DIOXIDE 25 mmol/L (21-32); CREATININE 1.02 mg/dl (0.60-1.20); GLUCOSE 94 mg/dl (70-99); LIPASE 134 U/L (73-393); POTASSIUM 3.2 mmol/L (3.5-5.1); SODIUM 140 mmol/L (136-145)
[2017-11-29 21:58] LABS: ALKALINE PHOSPHATASE 73 U/L (45-117); CKMB 0.7 ng/ml (0.5-3.6); TOTAL PROTEIN 7.7 gm/dl (6.4-8.2)
--- NOTE | 2017-11-30 06:47 | EMERGENCY ROOM VISIT NOTE ---
ED Visit Note First contact with patient: 02:23 This case was signed out to me at change of shift awaiting bed placement. 0330: The bed search was suspended at this time as there were no beds available. 0645: The patient rested overnight. The case was signed out to Dr. Luna change of shift awaiting bed placement. The bed search will resume this morning.
[2017-11-30 13:31] VITALS: BP 107/75; PULSE 88; TEMP 36.8; O2SAT 99
--- NOTE | 2017-11-30 13:55 | EMERGENCY ROOM VISIT NOTE ---
ED Visit Note First contact with patient: 09:46 I received this patient in signout at the change of shift from Dr. Stevens, pending mental health bed search. I did speak with the patient at great length at approximately 11 AM regarding the previous evening's events. Patient reiterates that she "found out" that her had been cheating on her. She does have 2 small children at home and states she has been with him since she was 16 years old. Patient admits to taking multiple Topamax tablets, she states it was because she needed to "relax." She is currently not able to give a quantity although states her family members took away the "500 mg" bottle but they were not aware of the "200 mg bottle." Patient states she took that prescription as well. At this time the patient remained stable. She has been in the emergency department for many hours. She is tolerating p.o. fluid and food. A bed search is in progress. A 302 was completed previously. Case has been signed out at the change of shift to Dr. Alegria.
--- NOTE | 2017-11-30 15:22 | EMERGENCY ROOM VISIT NOTE ---
ED Visit Note First contact with patient: 19:57 The patient was taken in signout from Dr. Luna at the change of shift. Please see that note for details. The patient was pending psychiatric bed placement. The patient was accepted at the [facility]. She was reassessed. She was medically stable. She was transferred for further psychiatric evaluation.
== END 2017-11-30 20:13 ==
LOC: C.EDB 20:26 → C.EDA 11-30 20:13
DX: F41.9 Anxiety disorder, unspecified (principal); R45.851 Suicidal ideations; J45.909 Unspecified asthma, uncomplicated; Z88.2 Allergy status to sulfonamides; Z88.8 Allergy status to other drugs, medicaments and biological substances

== ENCOUNTER 2018-03-06 19:23 | Inpatient (IN) | payer OTHER ==
[~2018-03-06] VITALS: Ht 165.1 cm; Wt 79.3 kg
[2018-03-06] MEDS ORDERED: SODIUM CHLORIDE 0.9% 1000ML 1,000 ML IV STA (19:31)
[2018-03-06] MEDS ORDERED: ALBUT/IPRATROP 3MG/0.5MG NEB 3 ML VIAL ONE (19:31)
[2018-03-06] MEDS ORDERED: METHYLPREDNISOLONE 125 MG VIAL IV STA (19:31)
[2018-03-06] MEDS ORDERED: ALBUT/IPRATROP 3MG/0.5MG NEB 3 ML VIAL INH STA (19:31)
[2018-03-06 19:58] LABS: BASO % 0.6 %; BASO ABS # 0.09 K/uL (0-0.2); EOS % 6.3 %; EOS ABS # 0.89 K/uL (0-0.5); HEMATOCRIT 42.3 % (37-47); HEMOGLOBIN 14.3 g/dL (12.0-16.0); IG# 0.03 K/uL (0.00-0.02); LYMPH % 27.7 %; LYMPH ABS # 3.91 K/uL (1.2-3.4); MEAN CELL VOLUME 82.9 fL (80-100); MEAN CORPUSCULAR HGB CONC 33.8 g/dl (32-36); MEAN PLATELET VOLUME 10.1 fL (7.4-10.4); MONO % 5.1 %; MONO ABS # 0.72 K/uL (0.11-0.59); NEUT % 60.1 %; PLATELET COUNT 314 K/uL (130-400); RED CELL DISTRIBUTION WIDTH SD 45.6 fL (36.4-46.3); WHITE BLOOD COUNT 14.14 K/uL (4.8-10.8)
[2018-03-06] MEDS ORDERED: [UNRECOGNIZED DRUG - CODE] PO (19:59)
--- NOTE | 2018-03-06 20:10 | EMERGENCY ROOM VISIT NOTE ---
History Report prepared by Arya: Curt Mcintosh Under the Supervision of: Dr. Miguel Ludwig M.D. First contact with patient: 19:28 Chief Complaint: RESPIRATORY PROBLEMS Stated Complaint: ASTHMA ATTACK History of Present Illness The patient is a 27 year old female who presents to the Emergency Room with complaints of an asthma attack beginning prior to arrival, rating her current symptoms as 7/10 in severity. She reports that she used inhalers before reporting to the ER. She notes a history of asthma and states that she has been intubated in the past. She states that she has had difficulty breathing for the past month. HPI is limited due to patient being in respiratory distress. Source of History: patient Onset: prior to arrival Position: other (lungs) Symptom Intensity: 7/10 Quality: other (asthma attack) Associated Symptoms: + nausea Review of Systems Limited due to patient condition. Past Medical & Surgical Medical Problems: (1) Asthma, moderate persistent (2) uterine contractions in third trimester, antepartum Surgical Problems: (1) History of Amadou fundoplication Family History Cancer Diabetes mellitus FH: lupus MOTHER Heart disease Hypertension Social History Smoking Status: Never Smoker Alcohol Use: none Drug Use: none Marital Status: Housing Status: lives with family Occupation Status: employed Current/Historical Medications Scheduled Acetazolamide (Acetazolamide ER), 500 MG PO TID Montelukast Sodium (Singulair), 10 MG PO HS Topiramate (Topiramate), 100 MG PO BID Scheduled PRN Albuterol Hfa (Ventolin Hfa), 2 PUFFS INH Q4H PRN for SOB/Wheezing Albuterol Sulf (Proventil 0.083% 2.5MG/3ML), 2.5 MG NEB Q4-6HRS PRN for SOB/ Wheezing Rhsoiyxtlm-Ppescdajxlzfz-Uawhe (Esgic), 1-2 TABS PO BID PRN for Headache Erenumab-Aooe (Aimovig), 1 DOSE INJ UD PRN for Migraine Fluticasone Propionate (Nasal) (Flonase Allergy Relief), 2 SPRAYS JANNETTE DAILY PRN for Allergy Symptoms Loratadine (Claritin), 10 MG PO DAILY PRN for Allergic Reaction Meclizine Hcl (Meclizine Hcl), 25 MG PO QID PRN for Dizziness Rizatriptan Benzoate (Maxalt), 10 MG PO UD PRN for Migraine Allergies Coded Allergies: Sulfa Drugs (Verified Allergy, Unknown, HIVES, 11/29/17) Sulfamethoxazole w/Trimethoprim (Verified Allergy, Unknown, HIVES, 11/29/17 ) Physical Exam Vital Signs Date Time Temp Pulse Resp B/P (MAP) Pulse Ox O2 Delivery O2 Flow Rate FiO2 03/06/18 21:05 102 20 129/80 100 BiPAP 35 03/06/18 20:19 95 03/06/18 20:12 93 95 35 03/06/18 19:38 96 Room Air 03/06/18 19:37 96 Room Air 03/06/18 19:26 36.9 124 24 126/75 95 Room Air Physical Exam Physical Exam GENERAL: Patient in respiratory distress HENT: Exam performed. Head: Normocephalic and atraumatic. Right Ear: External ear normal. No mastoid tenderness. Left Ear: External ear normal. No mastoid tenderness. Mouth/Throat: The oropharynx is clear and moist. No trismus in the jaw. No dental abscesses or uvula swelling. No oropharyngeal exudate or tonsillar abscesses. EYES: Conjunctivae and EOM are normal. Pupils are equal, round, and reactive to light. Right eye exhibits no discharge. Left eye exhibits no discharge. No scleral icterus. NECK: Normal range of motion. Neck supple. No JVD present. No spinous process tenderness present. No carotid bruit present. No rigidity. No tracheal deviation and normal range of motion present. No Brudzinski's sign and no Kernig 's sign noted. CV: Normal rate, regular rhythm, normal heart sounds and intact distal pulses. There is no peripheral edema. Palpable radial pulses bue. PULM/CHEST: Respiratory distress. No stridor. Diffuse wheezing bilaterally. She has no rales. Retracting and speaking in 2 word sentences. Chest Wall: She exhibits no tenderness. ABD: The abdomen is soft. Bowel sounds are normal. She has no distension. No mass is present. There is no tenderness. There is no rebound, no guarding, no Gatica's sign and no tenderness at McBurney's point. Rovsig negative MUSC/SKEL: Normal range of motion. There is no peripheral edema, tenderness or deformity. LYMPH: No cervical adenopathy. NEURO: She is alert and oriented to person, place, and time. She has normal strength. No cranial nerve deficit or sensory deficit. Coordination and gait normal. GCS eye subscore is 4. GCS verbal subscore is 5. GCS motor subscore is 6. Cerebellar tests wnl. SKIN: Skin is warm and dry. She is not diaphoretic. PSYCH: She has a normal mood and affect. Behavior is normal. Judgment and thought content normal. Medical Decision & Procedures ER Provider Diagnostic Interpretation: Radiology results as stated below per my review and radiologist interpretation: CHEST ONE VIEW PORTABLE CLINICAL HISTORY: sob asthma COMPARISON STUDY: 07/17/2017 FINDINGS: The cardiac and mediastinal contours are normal. There is no evidence of focal pulmonary consolidation. There is no evidence of failure. No pleural effusions are visualized.[ IMPRESSION: No active disease in the chest. Electronically signed by: Daniel Babin M.D. 03/06/2018 8:11 PM Dictated Date/Time: 03/06/2018 8:11 PM Laboratory Results 03/06/18 19:42 Red Blood Count 5.10, Mean Corpuscular Volume 82.9, Mean Corpuscular Hemoglobin 28.0, Mean Corpuscular Hemoglobin Concent 33.8, Mean Platelet Volume 10.1, Neutrophils (%) (Auto) 60.1, Lymphocytes (%) (Auto) 27.7, Monocytes (%) (Auto) 5.1, Eosinophils (%) (Auto) 6.3, Basophils (%) (Auto) 0.6, Neutrophils # (Auto) 8.50, Lymphocytes # (Auto) 3.91, Monocytes # (Auto) 0.72, Eosinophils # (Auto) 0.89, Basophils # (Auto) 0.09 03/06/18 19:42 Test 03/06/18 19:42 White Blood Count 14.14 K/uL (4.8-10.8) Red Blood Count 5.10 M/uL (4.2-5.4) Hemoglobin 14.3 g/dL (12.0-16.0) Hematocrit 42.3 % (37-47) Mean Corpuscular Volume 82.9 fL (80-100) Mean Corpuscular Hemoglobin 28.0 pg (25-34) Mean Corpuscular Hemoglobin Concent 33.8 g/dl (32-36) Platelet Count 314 K/uL (130-400) Mean Platelet Volume 10.1 fL (7.4-10.4) Neutrophils (%) (Auto) 60.1 % Lymphocytes (%) (Auto) 27.7 % Monocytes (%) (Auto) 5.1 % Eosinophils (%) (Auto) 6.3 % Basophils (%) (Auto) 0.6 % Neutrophils # (Auto) 8.50 K/uL (1.4-6.5) Lymphocytes # (Auto) 3.91 K/uL (1.2-3.4) Monocytes # (Auto) 0.72 K/uL (0.11-0.59) Eosinophils # (Auto) 0.89 K/uL (0-0.5) Basophils # (Auto) 0.09 K/uL (0-0.2) RDW Standard Deviation 45.6 fL (36.4-46.3) RDW Coefficient of Variation 15.0 % (11.5-14.5) Immature Granulocyte % (Auto) 0.2 % Immature Granulocyte # (Auto) 0.03 K/uL (0.00-0.02) Venous Blood pH 7.35 (7.36-7.41) Venous Blood Partial Pressure CO2 45 mmHg (38.0-50.0) Venous Blood Partial Pressure O2 27 mmHg Venous Blood HCO3 24 mmol/L Venous Blood Oxygen Saturation < 60.0 % Venous Blood Base Excess -1.7 mEq/L Anion Gap 8.0 mmol/L (3-11) Est Creatinine Clear Calc Drug Dose 84.9 ml/min Estimated GFR () 83.9 Estimated GFR (Non- 72.4 BUN/Creatinine Ratio 14.2 (10-20) Lactic Acid Level 2.5 mmol/L (0.4-2.0) Calcium Level 9.3 mg/dl (8.5-10.1) Total Bilirubin 0.2 mg/dl (0.2-1) Direct Bilirubin < 0.1 mg/dl (0-0.2) Aspartate Amino Transf (AST/SGOT) 20 U/L (15-37) Alanine Aminotransferase (ALT/SGPT) 26 U/L (12-78) Alkaline Phosphatase 75 U/L (45-117) Total Protein 8.0 gm/dl (6.4-8.2) Albumin 4.1 gm/dl (3.4-5.0) Laboratory results reviewed by me Medications Administered Medications (Trade) Dose Ordered Sig/Cheryl Route Start Time Stop Time Status Last Admin Dose Admin Albuterol/ Ipratropium (Duoneb) 3 ml NOW STAT INH 03/06/18 19:31 03/06/18 19:33 DC 03/06/18 19:31 3 ML Methylprednisolone Sodium Succinate (Solu-Medrol IV) 125 mg NOW STAT IV 03/06/18 19:31 03/06/18 19:33 DC 03/06/18 19:47 125 MG Sodium Chloride 1,000 ml @ 999 mls/hr Q1H1M STAT IV 03/06/18 19:31 03/06/18 20:31 DC 03/06/18 19:47 999 MLS/HR Albuterol Sulfate (Ventolin 0.083% 2.5MG/3ML Neb) 5 mg NOW STAT INH 03/06/18 20:12 03/06/18 20:13 DC 03/06/18 20:24 5 MG ECG Per My Interpretation Indication: SOB/dyspnea Rate (beats per minute): 95 Rhythm: sinus rhythm Findings: other (CO, QRS, and QTC intervals within normal limits. No ST elevation or depression.) ED Course 1929: The patient was evaluated in room C10. A complete history and physical exam was performed. 1930: Ordered Sodium Chloride 1000 ml @ 999 mls/hr IV, Solu-Medrol 125 mg IV, Duoneb 3 ml INH 1944: I updated with the patient. She states she is feeling better after her breathing treatment. Able to speak more and full sentences. She states that she still is having retractions and difficulty breathing, but notes that her symptoms are improving. Diffuse wheezing is noted. She reports that 1 hour ago, she had 2 DuoNeb and 2 Albuterol nebulized at home. Given this, I continued the breathing treatment. She will be started on BiPAP. 2009: BiPAP was initiated, and she is tolerating it well. 2011: Ordered Albuterol Sulfate 5 mg INH 2019: Vital signs stable. Patient tolerated BiPAP well. Labs show mild respiratory acidosis with pH of 7.35 and CO2 of 45. Lactic acid elevated at 2.5 most likely due to the patient's acute asthma exacerbation and status bandages. I spoke with Dr. Uriah Osborn Hospitalist. He will reevaluate the patient for hospitalization. Medical Decision 1929: The patient was evaluated in room C10. A complete history and physical exam was performed. 1930: Ordered Sodium Chloride 1000 ml @ 999 mls/hr IV, Solu-Medrol 125 mg IV, Duoneb 3 ml INH 1944: I updated with the patient. She states she is feeling better after her breathing treatment. Able to speak more and full sentences. She states that she still is having retractions and difficulty breathing, but notes that her symptoms are improving. Diffuse wheezing is noted. She reports that 1 hour ago, she had 2 DuoNeb and 2 Albuterol nebulized at home. Given this, I continued the breathing treatment. She will be started on BiPAP. 2009: BiPAP was initiated, and she is tolerating it well. 2011: Ordered Albuterol Sulfate 5 mg INH 2019: Vital signs stable. Patient tolerated BiPAP well. Labs show mild respiratory acidosis with pH of 7.35 and CO2 of 45. Lactic acid elevated at 2.5 most likely due to the patient's acute asthma exacerbation and status bandages. I spoke with Dr. Uriah Greenfield. He will reevaluate the patient for hospitalization. Medication Reconcilliation Current Medication List: was personally reviewed by me Blood Pressure Screening Patient's blood pressure: Normal blood pressure Blood pressure disposition: Did not require urgent referral Consults Time Called: 2014 Consulting Physician: Dr. Uriah Greenfield Returned Call: [address] Uriah Greenfield. He will reevaluate the patient for hospitalization. Impression Primary Impression: Status asthmaticus Critical Care I have personally spent greater than 56 minutes of critical care time in the direct management of this patient. This includes bedside care, interpretation of diagnostic studies, and testing, discussion with consultants, patient, and family members, and other required patient management activities. This 56 minutes is in excess of all separately billable procedures. Scribe Attestation The scribe's documentation has been prepared under my direction and personally reviewed by me in its entirety. I confirm that the note above accurately reflects all work, treatment, procedures, and medical decision making performed by me. The chart was completed utilizing [employer] voice recognition software. Grammatical errors, random word insertions, pronoun errors, and incomplete sentences are an occasional consequence of this system due to software limitations, ambient noise, and hardware issues. Any formal questions or concerns about the content, text, or information contained within the body of this dictation should be directly addressed to the physician for clarification. Departure Information Dispostion Being Evaluated By Hospitalist Prescriptions Loratadine (CLARITIN) 10 Mg Tab 10 MG PO DAILY Y for Allergic Reaction, #10 TAB Prov: Loki Kruse MD 03/06/18 Montelukast Sodium (SINGULAIR) 10 Mg Tab 10 MG PO HS, #30 TAB Prov: Loki Kruse MD 03/06/18 Referrals Lynette Jorge D.O. (PCP) Patient Instructions My [facility] Problem Qualifiers Primary Impression: Status asthmaticus Asthma severity: severe Asthma persistence: persistent Qualified Codes: J45.52 - Severe persistent asthma with status asthmaticus
[2018-03-06 20:12] VITALS: PULSE 93; O2SAT 95
[2018-03-06] MEDS ORDERED: ALBUTEROL 0.083% NEBU SOLN 3 ML VIAL INH STA (20:12)
[2018-03-06 20:40] LABS: BLOOD UREA NITROGEN 15 mg/dl (7-18); CALCIUM 9.3 mg/dl (8.5-10.1); CARBON DIOXIDE 25 mmol/L (21-32); CREATININE 1.06 mg/dl (0.60-1.20); GLUCOSE 108 mg/dl (70-99)
[2018-03-06] MEDS ORDERED: RIZA10TA18 PO (20:41)
[2018-03-06] MEDS ORDERED: MECL1TAB42 PO (20:41)
[2018-03-06] MEDS ORDERED: BUTA1TAB70 PO (20:41)
[2018-03-06] MEDS ORDERED: EREN70IN INJ (20:51)
[2018-03-06] MEDS ORDERED: VNTHFA/IN INH (20:51)
[2018-03-06] MEDS ORDERED: ALBINS/ NEB (20:51)
[2018-03-06] MEDS ORDERED: FLUT0.15 NAE (20:51)
[2018-03-06 20:57] LABS: ALBUMIN 4.1 gm/dl (3.4-5.0); ALKALINE PHOSPHATASE 75 U/L (45-117); ALT/SGPT 26 U/L (12-78); AST/SGOT 20 U/L (15-37)
[2018-03-06 20:59] LABS: POTASSIUM 3.4 mmol/L (3.5-5.1); SODIUM 139 mmol/L (136-145)
[2018-03-06] MEDS ORDERED: LORA10TA6 PO (21:13)
[2018-03-06] MEDS ORDERED: MONT1TAB3 PO (21:13)
[2018-03-06] MEDS ORDERED: ACETAMINOPHEN 325 MG TAB PO PRN (21:15)
[2018-03-06] MEDS ORDERED: BUTALBITAL/ACETAMIN/CAFFEINE TAB PO PRN (21:15)
[2018-03-06] MEDS ORDERED: MECLIZINE HCL 12.5 MG TAB PO PRN (21:15)
[2018-03-06] MEDS ORDERED: FLUTICASONE PROPIONATE NA SPR 16 GM BTL NAE PRN (21:15)
[2018-03-06] MEDS ORDERED: ONDANSETRON INJ 2 MG/ML 2 ML VIAL IV PRN (21:15)
[2018-03-06] MEDS ORDERED: LEVALBUTEROL 1.25MG/0.5ML NEB INH PRN (21:15)
[2018-03-06] MEDS ORDERED: ALBUTEROL HFA 8 GM INHALER INH PRN (21:15)
[2018-03-06] MEDS ORDERED: LORATADINE 10 MG TAB PO PRN (21:15)
[2018-03-06] MEDS ORDERED: NITROGLYCERIN 0.4 MG SL PER TAB CHARGE SL PRN (21:15)
[2018-03-06] MEDS ORDERED: RIZATRIPTAN BENZOATE 10 MG TAB PO PRN (21:15)
[2018-03-06] MEDS ORDERED: POLYETHYLENE (MIRALAX) 17 GM PACK PO PRN (21:15)
[2018-03-06 21:48] VITALS: BP 112/72; PULSE 95; TEMP 36.8; O2SAT 98; Ht 165.1 cm; Wt 79.3 kg
[2018-03-06] MEDS ORDERED: TPM100 PO (22:16)
--- NOTE | 2018-03-06 23:07 | HISTORY & PHYSICAL EXAMINATION ---
DATE OF ADMISSION: 03/06/2018 CHIEF COMPLAINT: Shortness of breath. HISTORY OF PRESENT ILLNESS: This is a 27-year-old female with past medical history significant for asthma moderate persistent, allergic rhinitis, iron deficiency anemia, idiopathic intracranial hypertension, demyelinating disease, presents with asthma attack, patient says is going for 1 month. She was following with family doctor. Advised to come to the ER, but she does not want to come. She says she has history of severe asthma attacks in the past . She was treated with 1 dose of Solu-Medrol and prednisone as outpatient , but it was not getting better, so she gave up and came to the ER today. She complains of dry cough, once in a while brings up clear sputum. Has some chest tightness, headaches, some dizziness, blurred visions, some runny nose. Denies any earaches. No sore throat, no difficulty swallowing. No nausea, no vomiting, no abdominal pain. Normal bowel and bladder movements. No blood in the stools, no blood in the urine. Currently on BiPAP and saturating okay and seems comfortable. No edema in the legs. No rash seen. ALLERGIES: TO BACTRIM, DUST, MOLD, POLLEN, SULFA ANTIBIOTICS. PAST MEDICAL HISTORY: As mentioned above. PAST SURGICAL HISTORY: , dilatation and curettage, esophagogastric fundoplasty Amadou x2, levonorgestrel releasing IUD. MEDICATIONS: The patient is on Antivert 25 mg p.o. t.i.d. p.r.n. for dizziness, Diamox 500 mg p.o. t.i.d., Topamax 100 mg p.o. b.i.d., Fioricet 1 tablet every 4 hours as needed for pain, albuterol 1 nebulization every 4 hours as needed, Tylenol as needed, albuterol as needed, Singulair 10 mg p.o. at bedtime, Claritin 10 mg p.o. p.r.n. FAMILY HISTORY: Significant for father had asthma in childhood. Mother has lupus. Aunt has spina bifida. Sister has obesity and PCOS. Brother has HIV and lymphatic cancer. SOCIAL HISTORY: . Never smoked. No smoking history. No alcohol history. No drug use. REVIEW OF SYMPTOMS: As per HPI. Rest of review of systems negative. PHYSICAL EXAMINATION: GENERAL: The patient is of moderate built, not in distress. VITAL SIGNS: Temperature 36.9, pulse 95, respiratory rate 24, blood pressure 126/75, oxygen 95% on BiPAP. HEENT: No pallor, no icterus. Pupils equal, round, and reactive to light. NECK: No JVD, no neck masses, no carotid bruits. CARDIOVASCULAR: S1, S2 heard. Tachycardia. No murmurs. RESPIRATORY SYSTEM: Clear to auscultation bilaterally, diminished breath sounds. No wheezing, no crackles heard at this time. ABDOMEN: Soft, bowel sounds present. Nontender. No distention. CENTRAL NERVOUS SYSTEM: Cranial nerves II through XII grossly intact, nonfocal. EXTREMITIES: No edema, no erythema. LABS: WBC 14.14, hemoglobin 14.3, hematocrit 42.3, platelets 314. Sodium 139, potassium 3.4, chloride 102, bicarb 25, BUN 15, creatinine 1.06, serum glucose 108. Lactic acid is 2.5, calcium 9.3, total bilirubin 0.2, AST 20, ALT 26, alkaline phosphatase 75. Chest x-ray: No acute disease in the chest. EKG: Normal sinus rhythm with sinus arrhythmia at a rate of 95. No acute St changes seen. ASSESSMENT AND PLAN: This 27-year-old female presents with asthma exacerbation. 1. Acute exacerbation of asthma, moderate persistent, failed outpatient treatment with steroids. We will place on IV Solu-Medrol, nebs, azithromycin was placed on BiPAP in the ER, which she will continue for now. We will monitor on tele floor. Consult pulmonary in a.m. for further recommendation. 2. Migraines. Continue home medications. 3. Allergies. Claritin p.r.n. 4. History of iron deficiency anemia. Hemoglobin is okay currently. 5. History of idiopathic intracranial hypertension and demyelinating disease, on Diamox and Topamax. 6. Deep venous thrombosis prophylaxis, SCDs for now. 7. Disposition: Admit to tele floor. Expect to discharge home and follow up with family doctor. Level 1 full code. MTDD
[2018-03-06] MEDS ORDERED: PNEUMOCOCCAL ADMINISTRATION CHARGE ONE (23:30)
[2018-03-06] MEDS ORDERED: PNEUMOCOCCAL POLYSACCHARIDES 25 MCG/0.5 ML VIAL/SYR IM. ONE (23:30)
[2018-03-06 23:40] VITALS: BP 119/65; PULSE 86; TEMP 36.7; O2SAT 98
[2018-03-06 23:59] VITALS: O2SAT 98
[2018-03-07] VITALS (11 sets, daily range): BP systolic 103–113; BP diastolic 63–69; PULSE 71–97; TEMP 36.6–36.8; O2SAT 97–100
[2018-03-07] MEDS: LEVALBUTEROL 1.25MG/0.5ML NEB INH SCH ×4 (02:19→19:39)
[2018-03-07 07:09] LABS: BASO % 0.2 %; BASO ABS # 0.02 K/uL (0-0.2); EOS % 0.1 %; EOS ABS # 0.01 K/uL (0-0.5); HEMATOCRIT 40.8 % (37-47); HEMOGLOBIN 13.5 g/dL (12.0-16.0); IG# 0.02 K/uL (0.00-0.02); LYMPH % 11.4 %; LYMPH ABS # 1.52 K/uL (1.2-3.4); MEAN CELL VOLUME 82.9 fL (80-100); MEAN CORPUSCULAR HEMOGLOBIN 27.4 pg (25-34); MEAN CORPUSCULAR HGB CONC 33.1 g/dl (32-36); MEAN PLATELET VOLUME 10.1 fL (7.4-10.4); MONO % 0.8 %; NEUT % 87.3 %; NEUT ABS # 11.65 K/uL (1.4-6.5); PLATELET COUNT 314 K/uL (130-400); RED CELL DISTRIBUTION WIDTH CV 15.3 % (11.5-14.5); RED CELL DISTRIBUTION WIDTH SD 46.4 fL (36.4-46.3); WHITE BLOOD COUNT 13.32 K/uL (4.8-10.8)
[2018-03-07 07:19] LABS: CALCIUM 9.1 mg/dl (8.5-10.1); CREATININE 0.96 mg/dl (0.60-1.20); POTASSIUM 3.8 mmol/L (3.5-5.1)
[2018-03-07] MEDS: AcetaZOLAMIDE 500 MG CAPCR PO SCH ×3 (08:26→20:43)
[2018-03-07] MEDS: AZITHROMYCIN 250 MG TAB PO SCH (08:26)
--- NOTE | 2018-03-07 08:26 | Progress Note ---
Medicine Progress Note Date & Time of Visit: Mar 07, 2018 at 08:24. Subjective seen resting in bed, not in distress; She was able to remove her BiPAP mask, stating that she can talk to me without using it States her breathing is "" a lot better Still has dry cough Denies chest pain, fevers chills no other symptoms Objective Last 8 Hrs Date Time Temp Pulse Resp B/P (MAP) Pulse Ox O2 Delivery O2 Flow Rate FiO2 03/07/18 07:36 74 18 98 BiPAP/CPAP 35 03/07/18 04:28 36.6 77 18 105/64 (78) 97 BiPAP 03/07/18 02:21 85 98 35 03/07/18 02:20 85 18 98 BiPAP/CPAP 35 Physical Exam: General-oriented 3, not in distress, speaks in sentences with mild accessory muscle use Eyes-anicteric ENT- oropharynx clear Neck- supple, no JVD, no adenopathy, no thyromegaly Lungs-clear but somewhat diminished breath sounds bilaterally, no wheezing noted Heart-normal rate, regular rhythm; no murmur, no gallop, no rub appreciated Abdomen- normal bowel sounds, soft, nontender, Extremities- no pretibial edema, no calf tenderness; peripheral pulses intact Neuro- alert, oriented x 3; no gross focal neurologic deficits Skin- warm & dry Laboratory Results: Last 24 Hours Test 03/06/18 19:42 03/07/18 06:00 White Blood Count 14.14 K/uL 13.32 K/uL Red Blood Count 5.10 M/uL 4.92 M/uL Hemoglobin 14.3 g/dL 13.5 g/dL Hematocrit 42.3 % 40.8 % Mean Corpuscular Volume 82.9 fL 82.9 fL Mean Corpuscular Hemoglobin 28.0 pg 27.4 pg Mean Corpuscular Hemoglobin Concent 33.8 g/dl 33.1 g/dl Platelet Count 314 K/uL 314 K/uL Mean Platelet Volume 10.1 fL 10.1 fL Neutrophils (%) (Auto) 60.1 % 87.3 % Lymphocytes (%) (Auto) 27.7 % 11.4 % Monocytes (%) (Auto) 5.1 % 0.8 % Eosinophils (%) (Auto) 6.3 % 0.1 % Basophils (%) (Auto) 0.6 % 0.2 % Neutrophils # (Auto) 8.50 K/uL 11.65 K/uL Lymphocytes # (Auto) 3.91 K/uL 1.52 K/uL Monocytes # (Auto) 0.72 K/uL 0.10 K/uL Eosinophils # (Auto) 0.89 K/uL 0.01 K/uL Basophils # (Auto) 0.09 K/uL 0.02 K/uL RDW Standard Deviation 45.6 fL 46.4 fL RDW Coefficient of Variation 15.0 % 15.3 % Immature Granulocyte % (Auto) 0.2 % 0.2 % Immature Granulocyte # (Auto) 0.03 K/uL 0.02 K/uL Venous Blood pH 7.35 Venous Blood Partial Pressure CO2 45 mmHg Venous Blood Partial Pressure O2 27 mmHg Venous Blood HCO3 24 mmol/L Venous Blood Oxygen Saturation < 60.0 % Venous Blood Base Excess -1.7 mEq/L Sodium Level 139 mmol/L 139 mmol/L Potassium Level 3.4 mmol/L 3.8 mmol/L Chloride Level 106 mmol/L 104 mmol/L Carbon Dioxide Level 25 mmol/L 24 mmol/L Anion Gap 8.0 mmol/L 10.0 mmol/L Blood Urea Nitrogen 15 mg/dl 12 mg/dl Creatinine 1.06 mg/dl 0.96 mg/dl Est Creatinine Clear Calc Drug Dose 84.9 ml/min 94.3 ml/min Estimated GFR () 83.9 94.6 Estimated GFR (Non- 72.4 81.6 BUN/Creatinine Ratio 14.2 12.0 Random Glucose 108 mg/dl 141 mg/dl Lactic Acid Level 2.5 mmol/L Calcium Level 9.3 mg/dl 9.1 mg/dl Total Bilirubin 0.2 mg/dl Direct Bilirubin < 0.1 mg/dl Aspartate Amino Transf (AST/SGOT) 20 U/L Alanine Aminotransferase (ALT/SGPT) 26 U/L Alkaline Phosphatase 75 U/L Total Protein 8.0 gm/dl Albumin 4.1 gm/dl Magnesium Level 1.9 mg/dl Assessment & Plan ASSESSMENT AND PLAN: This 27-year-old female presents with asthma exacerbation. 1. Acute exacerbation of asthma, moderate persistent, failed outpatient treatment with steroids. - Chest x-ray no signs of pneumonia - Improving -Continue Solu-Medrol 60 mg IV every 8 hours, levalbuterol every 6 hours as needed -Continue BiPAP -Pulmonary consulted 2. Migraines. Stable continue home medications. 3. Allergies. Claritin p.r.n. 4. History of iron deficiency anemia. 5. History of idiopathic intracranial hypertension and demyelinating disease, on Diamox and Topamax. 6. Deep venous thrombosis prophylaxis Lovenox 7. Disposition: Admit to tele floor. Expect to discharge home and follow up with family doctor. Level 1 full code. Current Inpatient Medications: Current Inpatient Medications Medications (Trade) Dose Ordered Sig/Cheryl Route Start Time Stop Time Status Last Admin Dose Admin Acetaminophen (Tylenol Tab) 650 mg Q4H PRN PO 03/06/18 21:15 04/05/18 21:14 Ondansetron HCl (Zofran Inj) 4 mg Q6H PRN IV 03/06/18 21:15 04/05/18 21:14 Nitroglycerin (Nitrostat Tab) 0.4 mg UD PRN SL 03/06/18 21:15 04/05/18 21:14 Polyethylene (Miralax Powder Packet) 17 gm DAILY PRN PO 03/06/18 21:15 04/05/18 21:14 Acetazolamide (Diamox Sequels) 500 mg TID PO 03/07/18 09:00 04/06/18 08:59 Albuterol (Ventolin Hfa Inhaler) 2 puffs Q4H PRN INH 03/06/18 21:15 04/05/18 21:14 03/07/18 05:28 2 PUFFS Acetaminophen/ Butalbital/ Caffeine (Fioricet Tab) 1 tab BID PRN PO 03/06/18 21:15 04/05/18 21:14 Fluticasone Propionate (Flonase Nasal [place]) 2 sprays DAILY PRN JANNETTE 03/06/18 21:15 04/05/18 21:14 Meclizine HCl (Antivert Tab) 25 mg QID PRN PO 03/06/18 21:15 04/05/18 21:14 Rizatriptan Benzoate (Maxalt Tab) 10 mg UD PRN PO 03/06/18 21:15 04/05/18 21:14 Topiramate (Topamax Tab) 100 mg BID PO 03/07/18 09:00 04/06/18 08:59 Methylprednisolone Sodium Succinate 60 mg/Syringe 0.96 ml @ 1.5 mls/min TID IV 03/07/18 09:00 04/06/18 08:59 Azithromycin (Zithromax Tab) 500 mg QAM PO 03/07/18 09:00 03/14/18 08:59 Levalbuterol (Xopenex 1.25MG/ 0.5ML Neb) 1.25 mg Q6R INH 03/07/18 03:00 04/06/18 02:59 03/07/18 07:23 1.25 MG Loratadine (Claritin Tab) 10 mg DAILY PRN PO 03/06/18 21:15 04/05/18 21:14 Montelukast Sodium (Singulair Tab) 10 mg HS PO 03/07/18 21:00 04/06/18 20:59 Levalbuterol (Xopenex 1.25MG/ 0.5ML Neb) 1.25 mg Q2R PRN INH 03/07/18 06:45 04/05/18 21:14
[2018-03-07] MEDS: TOPIRAMATE 100 MG TAB PO SCH ×2 (08:27→20:43)
[2018-03-07] MEDS ORDERED: METHYLPREDNISOLONE IV 60 MG in SYRINGE 0 ML IV SCH (09:00)
[2018-03-07] MEDS: LEVALBUTEROL 1.25MG/0.5ML NEB INH PRN (12:04)
[2018-03-07] MEDS: METHYLPREDNISOLONE IV 60 MG in SYRINGE 0 ML IV SCH ×2 (14:16→20:44)
--- NOTE | 2018-03-07 14:17 | Pulmonary Consultation ---
History General Date of Service: Mar 07, 2018. Stated Complaint: Asthma With Acute Exacerbation In Adult HPI The patient is a 27 year old female who presents to [facility] with complaints of Asthma With Acute Exacerbation In Adult. The patient' s primary care provider is Lynette Jorge D.O.. 27-year-old female admitted for status asthmaticus with pending respiratory failure. Patient has a long and complex medical history with recurrent respiratory exacerbations. Patient was noted the started having respiratory insufficiency/asthmatic attacks at 3-month-old at that time which required a Amadou fundoplication secondary to chronic regurgitation and airway compromise/ aspiration pneumonia. She constantly had recurrent bouts of will was term asthmatic flares during her childhood of until her teens when it became significantly worse in once again was admitted and required a Amadou fundoplication for the 2nd time at age 19 at [facility]. Over this time she has also had chronic GERD as well as sinusitis with associated postnasal drip. Patient was notably stable after 2nd Amadou fundoplication in easier to control but in 2011 started having increased signs and symptoms associated with wheezing and cough as well as shortness of breath. She was seen by Dr. Rosalino Owens at that time as well as Dr. Rodrigue Bahena and was initiated on Xolair with good overall response but Xolair was discontinued as her insurance company would not financially support the therapy. Patient continues to have intermittent bouts but was overall stable in tell she became and had continuous and poorly controlled asthmatic attacks. With her for son her attacks are so severe it was noted she actually had a prematurely deliver at 32 weeks via . With her 2nd son she also had similar types of complications in in February of 2016 was admitted to the intensive care unit for 1 day with a hospitalization of 5 days secondary to asthmatic attacks. Since that time the patient notes intermittent steroid use and intermittent rhinitis, shortness of breath and coughing. She notes over the last month she has had increased rhinitis, coughing, shortness of breath which is not responded so to Solu-Medrol IM or oral prednisone. She presented to the ED the day of her admission with increasing shortness of breath as well as chest pain and fatigue. In the emergency room the patient was noted be saturating well but was tachypneic and progressively becoming more fatigued was started on BiPAP as well as FiO2 support. She was treated with the BiPAP, duo nebs, Solu-Medrol 125 mg IV and continuous nebulizers. With this the patient did note improvement in her respiratory signs and symptoms. During our conversation today the patient does note decreasing respiratory insufficiency but continues to have shortness of breath out of proportion to her baseline. Current in hospital workup EKG: Normal sinus rhythm, rate 95 with no signs of acute ischemia CXR: Within normal limits WBC 14K (EOS: 6.3%/EOS #: >0.89) reduced to EOS#: 0.01 VB.35/45 corrected to 7.39/37 Lactic Acid 2.5 Pending: HCG In-hospital treatments 1. ED: BiPAP (IPAP /EPAP ), duo nebs, methylprednisolone 125 mg IV, Ventolin nebulizer 2. In-patient: Montelukast, methylprednisolone 60 mg Q 8, azithromycin, Xopenex nebulizer, Ventolin HFA PmHx: 1. Severe persistent asthma with history of multiple hospitalizations 2. Allergic rhinitis/with chronic rhinitis 3. Iron deficiency anemia 4. Idiopathic intracranial hypertension/pseudotumor cerebri 5. Demyelinating disease 6. Chronic reflux esophagitis/history aspiration 7. Disorder of vocal cord 8. Elevated C-reactive protein 9. Headache 10. Hiatal hernia 11. Menorrhagia 12. Nausea 13. Papilledema 14. Spells of decreased attentiveness 15. Status asthmaticus 16. Tachycardia 17. Vision changes Surgical History Esophagogastric Fundoplasty Amadou Fundoplication x2 dilation and curettage bronchoscopy with lung biopsy endometrial biopsy Family History Acute Venous Thrombosis Of The Deep Vessels Of The Lower Extremity father--- Asthma Coronary Artery Disease Pulmonary Embolism mother-- Systemic Lupus Erythematosus aunt--spina bifida brotherHIV & lymphatic cancer Social History Denied: History of Alcohol Use or abuse Denied: History of Drug Use Denied: History of Home Environment Domestic Violence Housing Without Smoke Detectors Never smoker Uses Safety Equipment Seatbelts Current outpatient medications Albuterol Sulfate (2.5 MG/3ML) 0.083% Inhalation Nebulization Solution Q4 ORN Ventolin HFA 108 (90 Base) MCG/ACT Inhalation Aerosol Solution; INHALE 2 PUFFS Qggaamsykl-MXFI-Hnadqlmk 50-325-40 MG Oral Tablet; TAKE 1 OR 2 TABLETS PO BID PRN AcetaZOLAMIDE ER 500 MG Oral Capsule Extended Release 12 Hour; TAKE 1 TID Topiramate 100 MG Oral Tablet; Take 1 tablet twice daily Ondansetron 4 MG Oral Tablet Disintegrating; TAKE 1-2 TABLET 3 times daily as needed Fluticasone Propionate 50 MCG/ACT Nasal Suspension Meclizine HCl - 25 MG Oral Tablet; TAKE 1 TABLET 4 TIMES DAILY NEEDED FORDIZZINESS Multi-Vitamin Oral Tablet; TAKE 1 TABLET DAILY acetazolamide 500 p.o. t.i.d. Fiorcet 1 tablet every 4 hours as needed singular 10 mg q.h.s. Claritin 10 mg p.o. p.r.n. Pantoprazole Sodium 40 MG Oral Tablet Delayed Release PredniSONE 10 MG Oral Tablet; TAKE 1 TABLET NEEDED Allergies Bactrim TABS Sulfa Drugs Dust Mold Pollen animal dander Immunizations Influenza --- Series1: 06-Jul-2013 Historian: patient, family, partner Review of Systems Constitutional: reports: as stated in HPI Eyes: reports: no symptoms ENT: reports: as stated in HPI Cardiovascular: reports: no symptoms Respiratory: reports: as stated in [facility] Gastrointestinal: reports: no symptoms Genitourinary - Female: reports: no symptoms Musculoskeletal: reports: as stated in [facility] Integumentary: reports: no symptoms Psychiatric: reports: anxiety, depression Endocrine: no symptoms Hematologic / Lymphatic: no symptoms Allergic / Immunologic: no symptoms Past Medical History Past Medical History: Please refer to HPI Past Surgical History: Please refer to HPI Family History Cancer Diabetes mellitus FH: lupus MOTHER Heart disease Hypertension Please refer to HPI Social History Please refer to HPI Hx Tobacco Use In Past Year?: No Smoking Status: Never Smoker Marital status: Housing status: lives with family Occupational Status: employed Immunizations History of Influenza Vaccine: Yes Influenza Vaccine Date: Apr 14, 2014 History of Tetanus Vaccine?: Yes Tetanus Immunization Date: Oct 06, 2013 History of Pneumococcal: Yes Pneumococcal Date: Oct 06, 2013 Allergies Coded Allergies: Sulfa Drugs (Verified Allergy, Unknown, HIVES, 11/29/17) Sulfamethoxazole w/Trimethoprim (Verified Allergy, Unknown, HIVES, 11/29/17 ) Current Medications Reported Home Medications Medications Dose Route/Sig Max Daily Dose Days Date Category Dose Instructions Claritin (Loratadine) 10 Mg Tab 10 Mg PO DAILY PRN 03/06/18 Rx Singulair (Montelukast Sodium) 10 Mg Tab 10 Mg PO HS 03/06/18 Rx Ventolin Hfa (Albuterol) 200 Puffs/10052 Mcg Aers 2 Puffs INH Q4H PRN 03/06/18 Reported Flonase Allergy Relief (Fluticasone Propionate (Nasal)) 50 Mcg/Act Spr 2 Sprays JANNETTE DAILY PRN 03/06/18 Reported Proventil 0.083% 2.5MG/3ML (Albuterol Sulf) 2.5 Mg/3 Ml Nebu 2.5 Mg NEB Q4-6HRS PRN 03/06/18 Reported Aimovig (Erenumab-Aooe) 70 Mg/Ml Inj 1 Dose INJ UD PRN 03/06/18 Reported Esgic (Llancbbwqp-Bnylqgerzndtm-Bppao) 1 Tab Tab 1-2 Tabs PO BID PRN 03/06/18 Reported Meclizine Hcl 25 Mg Tab 25 Mg PO QID PRN 03/06/18 Reported Maxalt (Rizatriptan Benzoate) 10 Mg Tab 10 Mg PO UD PRN 03/06/18 Reported TAKE ONE TABLET AT ONSET OF HEADACHE, MAY REPEAT EVERY 2 HOURS IF NEEDED Topiramate 100 Mg Tab 100 Mg PO BID 07/17/17 Reported Acetazolamide ER (Acetazolamide) 500 Mg Capcr 500 Mg PO TID 05/06/17 Reported Physical Physical Exam Vital Signs: Date Time Temp Pulse Resp B/P (MAP) Pulse Ox O2 Delivery O2 Flow Rate FiO2 03/07/18 12:37 36.8 76 18 107/63 (78) 100 Oxymask 3.0 03/07/18 12:04 82 16 98 Mask 03/07/18 08:59 36.6 76 22 106/66 (79) 98 BiPAP 03/07/18 08:00 BiPAP 03/07/18 07:36 74 18 98 BiPAP/CPAP 35 03/07/18 04:28 36.6 77 18 105/64 (78) 97 BiPAP 03/07/18 02:21 85 98 35 03/07/18 02:20 85 18 98 BiPAP/CPAP 35 03/06/18 23:59 98 BiPAP 35 03/06/18 23:40 36.7 86 20 119/65 (83) 98 BiPAP 03/06/18 21:48 36.8 95 18 112/72 98 Mask 3.0 03/06/18 21:05 102 20 129/80 100 BiPAP 35 03/06/18 20:19 95 03/06/18 20:12 93 95 35 03/06/18 19:38 96 Room Air 03/06/18 19:37 96 Room Air 03/06/18 19:26 36.9 124 24 126/75 95 Room Air General Appearance: uncomfortable Head: NORMOCEPHALIC, ATRAUMATIC Eyes: PERRLA, NO DISCHARGE, EOMI, SCLERAE NORMAL, CONJUNCTIVAE NORMAL ENT: NORMAL EAR EXAM, NORMAL NASAL EXAM, NORMAL MOUTH EXAM, NORMAL THROAT EXAM , NORMAL DENTAL EXAM Neck: NORMAL RANGE OF MOTION, NO TENDERNESS, TRACHEA MIDLINE, NO STRIDOR Respiratory: wheezing Cardiovasular: REGULAR RATE/RHYTHM, NORMAL S1S2, NO M/G/R, NO MURMUR, NO GALLOP Abdomen: NON TENDER, NORMAL BOWEL SOUNDS, NO REBOUND, NO MASSES, NO GUARDING, NO ORGANOMEGALY Genitourinary - Female: EXTERNAL GENITALIA NORMAL Back: NORMAL INSPECTION, NO MIDLINE TENDERNESS, NO CVA TENDERNESS, NO PARAVERTEBRAL TTP Lower Extremities: NO EDEMA, NO DEFORMITY, NORMAL ROM Pulses: carotid (R) (2+), carotid (L) (2+), femoral (R) (2+), femoral (L) (2+) Neuro: ALERT, ORIENTED x 3, NORMAL MOTOR EXAM, NORMAL SENSATION, NORMAL CEREBELLAR EXAM Reflexes: biceps (R) (2+), bicpes (L) (2+), patellar (R) (2+), patellar (L) (2+ ) Babinski Testing: right (downgoing), left (downgoing) Psychiatric: NORMAL AFFECT, NO SUICIDAL IDEATION Diagnostics Labs Results Past 24 Hours Test 03/06/18 19:42 03/07/18 06:00 03/07/18 08:57 Range/Units White Blood Count 14.14 13.32 4.8-10.8 K/uL Red Blood Count 5.10 4.92 4.2-5.4 M/uL Hemoglobin 14.3 13.5 12.0-16.0 g/dL Hematocrit 42.3 40.8 37-47 % Mean Corpuscular Volume 82.9 82.9 80-100 fL Mean Corpuscular Hemoglobin 28.0 27.4 25-34 pg Mean Corpuscular Hemoglobin Concent 33.8 33.1 32-36 g/dl Platelet Count 314 314 130-400 K/uL Mean Platelet Volume 10.1 10.1 7.4-10.4 fL Neutrophils (%) (Auto) 60.1 87.3 % Lymphocytes (%) (Auto) 27.7 11.4 % Monocytes (%) (Auto) 5.1 0.8 % Eosinophils (%) (Auto) 6.3 0.1 % Basophils (%) (Auto) 0.6 0.2 % Neutrophils # (Auto) 8.50 11.65 1.4-6.5 K/uL Lymphocytes # (Auto) 3.91 1.52 1.2-3.4 K/uL Monocytes # (Auto) 0.72 0.10 0.11-0.59 K/uL Eosinophils # (Auto) 0.89 0.01 0-0.5 K/uL Basophils # (Auto) 0.09 0.02 0-0.2 K/uL RDW Standard Deviation 45.6 46.4 36.4-46.3 fL RDW Coefficient of Variation 15.0 15.3 11.5-14.5 % Immature Granulocyte % (Auto) 0.2 0.2 % Immature Granulocyte # (Auto) 0.03 0.02 0.00-0.02 K/uL Venous Blood pH 7.35 7.36-7.41 Venous Blood Partial Pressure CO2 45 38.0-50.0 mmHg Venous Blood Partial Pressure O2 27 mmHg Venous Blood HCO3 24 mmol/L Venous Blood Oxygen Saturation < 60.0 % Venous Blood Base Excess -1.7 mEq/L Sodium Level 139 139 136-145 mmol/L Potassium Level 3.4 3.8 3.5-5.1 mmol/L Chloride Level 106 104 98-107 mmol/L Carbon Dioxide Level 25 24 21-32 mmol/L Anion Gap 8.0 10.0 3-11 mmol/L Blood Urea Nitrogen 15 12 7-18 mg/dl Creatinine 1.06 0.96 0.60-1.20 mg/dl Est Creatinine Clear Calc Drug Dose 84.9 94.3 ml/min Estimated GFR () 83.9 94.6 Estimated GFR (Non- 72.4 81.6 BUN/Creatinine Ratio 14.2 12.0 10-20 Random Glucose 108 141 70-99 mg/dl Lactic Acid Level 2.5 0.4-2.0 mmol/L Calcium Level 9.3 9.1 8.5-10.1 mg/dl Total Bilirubin 0.2 0.2-1 mg/dl Direct Bilirubin < 0.1 0-0.2 mg/dl Aspartate Amino Transf (AST/SGOT) 20 15-37 U/L Alanine Aminotransferase (ALT/SGPT) 26 12-78 U/L Alkaline Phosphatase 75 45-117 U/L Total Protein 8.0 6.4-8.2 gm/dl Albumin 4.1 3.4-5.0 gm/dl Magnesium Level 1.9 1.8-2.4 mg/dl Human Chorionic Gonadotropin, Qual NEG NEG Diagnostic Radiology Please refer to HPI EKG Please refer to HPI Impression Assessment and Plan 27-year-old female admitted with status asthmaticus/pending respiratory insufficiency: 1. Severely persistent Asthma: Patient has had a long history of asthmatic exacerbations but her last hospitalization was greater than 1 year ago. Since that time though she has required multiple rounds of steroids with overall poor control. At this time the patient is currently responding well to therapy and will continue the 5 day course of azithromycin and I will taper down her steroids beginning tomorrow to p.o. prednisone. The patient I and her had a very long discussion about the etiology of asthma as well as external sources that will exacerbate her asthma such as chronic rhinitis and GERD. I believe after this patient has been discharged we should perform a Pantoja study as chronic regurgitation is been known to exacerbate her shortness of breath in the past. Also right now we should continue to follow her peak flow meter. She notes that her normal peak flows around 600 cc this means that when the patient's peak flow is up to around 500 cc should should be ready to be discharged.
[2018-03-07] MEDS: MONTELUKAST SOD 10 MG TAB PO SCH (20:43)
[2018-03-08] VITALS (13 sets, daily range): BP systolic 105–121; BP diastolic 58–69; PULSE 64–88; TEMP 36.7–37.2; O2SAT 94–100
[2018-03-08] MEDS: LEVALBUTEROL 1.25MG/0.5ML NEB INH SCH ×4 (01:46→19:05)
[2018-03-08] MEDS: METHYLPREDNISOLONE IV 60 MG in SYRINGE 0 ML IV SCH ×3 (06:00→21:15)
[2018-03-08 06:53] LABS: HEMATOCRIT 41.5 % (37-47); HEMOGLOBIN 13.6 g/dL (12.0-16.0); MEAN CELL VOLUME 83.7 fL (80-100); MEAN CORPUSCULAR HEMOGLOBIN 27.4 pg (25-34); MEAN CORPUSCULAR HGB CONC 32.8 g/dl (32-36); MEAN PLATELET VOLUME 10.3 fL (7.4-10.4); PLATELET COUNT 340 K/uL (130-400); RED CELL DISTRIBUTION WIDTH CV 15.8 % (11.5-14.5); RED CELL DISTRIBUTION WIDTH SD 48.3 fL (36.4-46.3)
[2018-03-08 07:17] LABS: BASO ABS # 0.01 K/uL (0-0.2); IG# 0.08 K/uL (0.00-0.02); LYMPH % 7.7 %; LYMPH ABS # 1.75 K/uL (1.2-3.4); MONO % 3.5 %; NEUT % 88.4 %; NEUT ABS # 20.16 K/uL (1.4-6.5)
[2018-03-08 07:19] LABS: CALCIUM 8.9 mg/dl (8.5-10.1); CREATININE 0.99 mg/dl (0.60-1.20); POTASSIUM 3.6 mmol/L (3.5-5.1)
[2018-03-08] MEDS: AcetaZOLAMIDE 500 MG CAPCR PO SCH ×3 (07:56→21:15)
[2018-03-08] MEDS: TOPIRAMATE 100 MG TAB PO SCH ×2 (07:56→21:15)
[2018-03-08] MEDS: AZITHROMYCIN 250 MG TAB PO SCH (07:57)
--- NOTE | 2018-03-08 10:04 | Pulmonology Progress Note ---
Pulmonary Progress Note Date of Service Mar 08, 2018. Attending Dr. Reyna Subjective Patient notes mild but notable improvement over the last 24 hours and her dyspnea/shortness of breath: Objective Patient is able to sit up in bed today have a conversation with some minimal tachypnea: Vital signs: Stable on FiO2 35%: Peak flow meter: 280 cc Respiratory: Expiratory wheezes appreciated but increased movement over the last 24 hours Cardiac: S1-S2 regular rate and rhythm no murmurs rubs or gallops appreciated Abdomen: Soft nontender PmHx: Severe persistent asthma, chronic GERD/Amadou fundoplication 2, idiopathic intracranial hypertension/pseudotumor cerebri, demyelinating disease PsHx: sophagogastric Fundoplasty Amadou Fundoplication x2, , dilation and curettage, bronchoscopy/biopsy, endometrial biopsy Pulmonary medications 1. Montelukast 10 mg 2. methylprednisolone 60 mg IV every 8 3. Azithromycin 4. Flonase nasal spray 5. Xopenex nebulizer Assessment & Plan 27-year-old female admitted for asthma exacerbation: 1. Severe persistent asthma: Patient has responded well to therapy at this time and per the patient her peak flow before arrival was 50 cc currently at 280 cc. This is still well below a person of her average height but is notably improving. As the patient is appropriately responding I will discontinue her IV Solu-Medrol and initiate prednisone starting 03/09/2018. Continue 5 day course of antibiotics and continue montelukast as well as Flonase nasal spray and Xopenex nebulizer. 2. respiratory acidosis: Patient's VBG showed no signs of hypercapnia and her lactic acidosis was most likely from the lactate secondary to multiple rounds of albuterol. I do not believe this patient never suffered from a severe respiratory acidosis. #3 GERD: Patient will need further workup as an outpatient with Pantoja study. #4 sleep apnea: Patient does have signs and symptoms possibly characteristic of sleep apnea which will require outpatient PSG. At this time I would monitor her but use BiPAP only when necessary as her GERD may be exacerbated by BiPAP/ noninvasive ventilation per Data Medications: Current Inpatient Medications Medications (Trade) Dose Ordered Sig/Cheryl Route Start Time Stop Time Status Last Admin Dose Admin Acetaminophen (Tylenol Tab) 650 mg Q4H PRN PO 03/06/18 21:15 04/05/18 21:14 Ondansetron HCl (Zofran Inj) 4 mg Q6H PRN IV 03/06/18 21:15 04/05/18 21:14 Nitroglycerin (Nitrostat Tab) 0.4 mg UD PRN SL 03/06/18 21:15 04/05/18 21:14 Polyethylene (Miralax Powder Packet) 17 gm DAILY PRN PO 03/06/18 21:15 04/05/18 21:14 Acetazolamide (Diamox Sequels) 500 mg TID PO 03/07/18 09:00 04/06/18 08:59 03/08/18 07:56 500 MG Albuterol (Ventolin Hfa Inhaler) 2 puffs Q4H PRN INH 03/06/18 21:15 04/05/18 21:14 03/07/18 05:28 2 PUFFS Acetaminophen/ Butalbital/ Caffeine (Fioricet Tab) 1 tab BID PRN PO 03/06/18 21:15 04/05/18 21:14 Fluticasone Propionate (Flonase Nasal Marty) 2 sprays DAILY PRN JANNETTE 03/06/18 21:15 04/05/18 21:14 Meclizine HCl (Antivert Tab) 25 mg QID PRN PO 03/06/18 21:15 04/05/18 21:14 Rizatriptan Benzoate (Maxalt Tab) 10 mg UD PRN PO 03/06/18 21:15 04/05/18 21:14 Topiramate (Topamax Tab) 100 mg BID PO 03/07/18 09:00 04/06/18 08:59 03/08/18 07:56 100 MG Azithromycin (Zithromax Tab) 500 mg QAM PO 03/07/18 09:00 03/14/18 08:59 03/08/18 07:57 500 MG Levalbuterol (Xopenex 1.25MG/ 0.5ML Neb) 1.25 mg Q6R INH 03/07/18 03:00 04/06/18 02:59 03/08/18 06:59 1.25 MG Loratadine (Claritin Tab) 10 mg DAILY PRN PO 03/06/18 21:15 04/05/18 21:14 Montelukast Sodium (Singulair Tab) 10 mg HS PO 03/07/18 21:00 04/06/18 20:59 03/07/18 20:43 10 MG Levalbuterol (Xopenex 1.25MG/ 0.5ML Neb) 1.25 mg Q2R PRN INH 03/07/18 06:45 04/05/18 21:14 03/07/18 12:04 1.25 MG Methylprednisolone Sodium Succinate 60 mg/Syringe 0.96 ml @ 1.5 mls/min Q8H IV 03/07/18 14:00 04/06/18 08:59 03/08/18 06:00 1.5 MLS/MIN Vital Signs: Date Time Temp Pulse Resp B/P (MAP) Pulse Ox O2 Delivery O2 Flow Rate FiO2 03/08/18 07:43 36.7 73 18 115/69 (84) 98 03/08/18 06:59 64 13 100 BiPAP/CPAP 35 03/08/18 06:59 64 100 35 03/08/18 03:14 36.8 73 17 108/58 (75) 98 BiPAP 03/08/18 01:50 75 98 35 03/08/18 01:46 73 16 98 BiPAP/CPAP 35 03/07/18 23:31 36.8 71 17 103/66 (78) 98 Oxymask 03/07/18 20:00 Nasal Cannula Oxymask 03/07/18 19:40 95 18 100 Mask 3.0 03/07/18 19:40 36.8 80 18 106/69 (81) 99 Nasal Cannula 3.0 03/07/18 15:12 36.8 97 16 113/65 (81) 100 Oxymask 3.0 03/07/18 14:22 78 16 98 Mask 3.0 03/07/18 12:37 36.8 76 18 107/63 (78) 100 Oxymask 3.0 03/07/18 12:04 82 16 98 Mask Laboratory Results: Last 24 Hours Test 03/08/18 06:04 White Blood Count 22.80 K/uL Red Blood Count 4.96 M/uL Hemoglobin 13.6 g/dL Hematocrit 41.5 % Mean Corpuscular Volume 83.7 fL Mean Corpuscular Hemoglobin 27.4 pg Mean Corpuscular Hemoglobin Concent 32.8 g/dl Platelet Count 340 K/uL Mean Platelet Volume 10.3 fL Neutrophils (%) (Auto) 88.4 % Lymphocytes (%) (Auto) 7.7 % Monocytes (%) (Auto) 3.5 % Eosinophils (%) (Auto) 0.0 % Basophils (%) (Auto) 0.0 % Neutrophils # (Auto) 20.16 K/uL Lymphocytes # (Auto) 1.75 K/uL Monocytes # (Auto) 0.80 K/uL Eosinophils # (Auto) 0.00 K/uL Basophils # (Auto) 0.01 K/uL RDW Standard Deviation 48.3 fL RDW Coefficient of Variation 15.8 % Immature Granulocyte % (Auto) 0.4 % Immature Granulocyte # (Auto) 0.08 K/uL Sodium Level 138 mmol/L Potassium Level 3.6 mmol/L Chloride Level 110 mmol/L Carbon Dioxide Level 18 mmol/L Anion Gap 10.0 mmol/L Blood Urea Nitrogen 14 mg/dl Creatinine 0.99 mg/dl Est Creatinine Clear Calc Drug Dose 91.4 ml/min Estimated GFR () 91.2 Estimated GFR (Non- 78.6 BUN/Creatinine Ratio 14.3 Random Glucose 119 mg/dl Calcium Level 8.9 mg/dl Magnesium Level 2.3 mg/dl
[2018-03-08] MEDS ORDERED: CALCIUM CARBONATE 500 MG CHEWABLE PO PRN (16:30)
[2018-03-08] MEDS: LEVALBUTEROL 1.25MG/0.5ML NEB INH PRN (17:36)
--- NOTE | 2018-03-08 18:46 | Progress Note ---
Medicine Progress Note Date & Time of Visit: Mar 08, 2018 at 18:41. Subjective Seen sitting in bed, with oxygen facemask on, comfortable States she feels improved today compared to yesterday Less dyspnea, and cough, scant sputum No chest pain No other symptoms Objective Last 8 Hrs Date Time Temp Pulse Resp B/P (MAP) Pulse Ox O2 Delivery O2 Flow Rate FiO2 03/08/18 17:37 88 18 97 Mask 3.0 03/08/18 15:02 36.8 64 16 106/61 (76) 96 Room Air 03/08/18 14:09 88 16 95 Room Air 03/08/18 12:00 98 Oxymask 3.0 03/08/18 11:41 36.8 74 18 121/63 (82) 97 Physical Exam: General-oriented 3, not in distress, speaks in sentences with mild accessory muscle use Eyes-anicteric Neck- supple, no JVD Lungs-improved air entry bilaterally, no crackles or wheezing Heart-normal rate, regular rhythm; no murmur Abdomen- normal bowel sounds, soft, nontender, Extremities- no pretibial edema, no calf tenderness Neuro- alert, oriented x 3; no gross focal neurologic deficits Skin- warm & dry Laboratory Results: Last 24 Hours Test 03/08/18 06:04 White Blood Count 22.80 K/uL Red Blood Count 4.96 M/uL Hemoglobin 13.6 g/dL Hematocrit 41.5 % Mean Corpuscular Volume 83.7 fL Mean Corpuscular Hemoglobin 27.4 pg Mean Corpuscular Hemoglobin Concent 32.8 g/dl Platelet Count 340 K/uL Mean Platelet Volume 10.3 fL Neutrophils (%) (Auto) 88.4 % Lymphocytes (%) (Auto) 7.7 % Monocytes (%) (Auto) 3.5 % Eosinophils (%) (Auto) 0.0 % Basophils (%) (Auto) 0.0 % Neutrophils # (Auto) 20.16 K/uL Lymphocytes # (Auto) 1.75 K/uL Monocytes # (Auto) 0.80 K/uL Eosinophils # (Auto) 0.00 K/uL Basophils # (Auto) 0.01 K/uL RDW Standard Deviation 48.3 fL RDW Coefficient of Variation 15.8 % Immature Granulocyte % (Auto) 0.4 % Immature Granulocyte # (Auto) 0.08 K/uL Sodium Level 138 mmol/L Potassium Level 3.6 mmol/L Chloride Level 110 mmol/L Carbon Dioxide Level 18 mmol/L Anion Gap 10.0 mmol/L Blood Urea Nitrogen 14 mg/dl Creatinine 0.99 mg/dl Est Creatinine Clear Calc Drug Dose 91.4 ml/min Estimated GFR () 91.2 Estimated GFR (Non- 78.6 BUN/Creatinine Ratio 14.3 Random Glucose 119 mg/dl Calcium Level 8.9 mg/dl Magnesium Level 2.3 mg/dl Assessment & Plan ASSESSMENT AND PLAN: This 27-year-old female presents with asthma exacerbation. 1. Acute exacerbation of asthma, moderate persistent, failed outpatient treatment with steroids. - Chest x-ray no signs of pneumonia -Continues to improve, weaned off BiPAP -Continue Solu-Medrol 60 mg IV every 8 hours, levalbuterol every 6 hours as needed -Continue to monitor peak flow meter -Pulmonary consulted, appreciate the recommendations 2. Migraines. Stable continue home medications. 3. Allergies. Claritin p.r.n. 4. History of iron deficiency anemia. 5. History of idiopathic intracranial hypertension and demyelinating disease, on Diamox and Topamax. The pain 6. Deep venous thrombosis prophylaxis Lovenox 7. Disposition: anticipate d/c home when medically stable Current Inpatient Medications: Current Inpatient Medications Medications (Trade) Dose Ordered Sig/Cheryl Route Start Time Stop Time Status Last Admin Dose Admin Acetaminophen (Tylenol Tab) 650 mg Q4H PRN PO 03/06/18 21:15 04/05/18 21:14 Ondansetron HCl (Zofran Inj) 4 mg Q6H PRN IV 03/06/18 21:15 04/05/18 21:14 Nitroglycerin (Nitrostat Tab) 0.4 mg UD PRN SL 03/06/18 21:15 04/05/18 21:14 Polyethylene (Miralax Powder Packet) 17 gm DAILY PRN PO 03/06/18 21:15 04/05/18 21:14 Acetazolamide (Diamox Sequels) 500 mg TID PO 03/07/18 09:00 04/06/18 08:59 03/08/18 15:10 500 MG Albuterol (Ventolin Hfa Inhaler) 2 puffs Q4H PRN INH 03/06/18 21:15 04/05/18 21:14 03/07/18 05:28 2 PUFFS Acetaminophen/ Butalbital/ Caffeine (Fioricet Tab) 1 tab BID PRN PO 03/06/18 21:15 04/05/18 21:14 Fluticasone Propionate (Flonase Nasal Howe) 2 sprays DAILY PRN JANNETTE 03/06/18 21:15 04/05/18 21:14 Meclizine HCl (Antivert Tab) 25 mg QID PRN PO 03/06/18 21:15 04/05/18 21:14 Rizatriptan Benzoate (Maxalt Tab) 10 mg UD PRN PO 03/06/18 21:15 04/05/18 21:14 Topiramate (Topamax Tab) 100 mg BID PO 03/07/18 09:00 04/06/18 08:59 03/08/18 07:56 100 MG Azithromycin (Zithromax Tab) 500 mg QAM PO 03/07/18 09:00 03/14/18 08:59 03/08/18 07:57 500 MG Levalbuterol (Xopenex 1.25MG/ 0.5ML Neb) 1.25 mg Q6R INH 03/07/18 03:00 04/06/18 02:59 03/08/18 14:07 1.25 MG Loratadine (Claritin Tab) 10 mg DAILY PRN PO 03/06/18 21:15 04/05/18 21:14 Montelukast Sodium (Singulair Tab) 10 mg HS PO 03/07/18 21:00 04/06/18 20:59 03/07/18 20:43 10 MG Levalbuterol (Xopenex 1.25MG/ 0.5ML Neb) 1.25 mg Q2R PRN INH 03/07/18 06:45 04/05/18 21:14 03/08/18 17:36 1.25 MG Methylprednisolone Sodium Succinate 60 mg/Syringe 0.96 ml @ 1.5 mls/min Q8H IV 03/07/18 14:00 03/09/18 08:00 03/08/18 15:10 1.5 MLS/MIN Prednisone (PredniSONE TAB) 40 mg DAILY PO 03/09/18 09:00 03/27/18 08:59 Calcium Carbonate (Tums Chew Tab) 1,000 mg Q6H PRN PO 03/08/18 16:30 04/07/18 16:29 03/08/18 17:14 1,000 MG
[2018-03-08] MEDS: MONTELUKAST SOD 10 MG TAB PO SCH (21:15)
[2018-03-08] MEDS: ENOXAPARIN 40 MG/0.4 ML SYR SQ SCH (21:21)
[2018-03-09] VITALS (12 sets, daily range): BP systolic 108–124; BP diastolic 63–77; PULSE 67–97; TEMP 36.7–37; O2SAT 95–99
[2018-03-09] MEDS: LEVALBUTEROL 1.25MG/0.5ML NEB INH SCH ×4 (02:25→18:51)
[2018-03-09 06:05] LABS: HEMATOCRIT 41.4 % (37-47); HEMOGLOBIN 13.6 g/dL (12.0-16.0); IG# 0.11 K/uL (0.00-0.02); LYMPH ABS # 1.46 K/uL (1.2-3.4); MEAN CORPUSCULAR HEMOGLOBIN 27.3 pg (25-34); MEAN CORPUSCULAR HGB CONC 32.9 g/dl (32-36); MONO % 1.6 %; MONO ABS # 0.34 K/uL (0.11-0.59); NEUT % 90.9 %; NEUT ABS # 18.99 K/uL (1.4-6.5); PLATELET COUNT 312 K/uL (130-400); RED CELL DISTRIBUTION WIDTH CV 15.8 % (11.5-14.5); RED CELL DISTRIBUTION WIDTH SD 47.7 fL (36.4-46.3)
[2018-03-09] MEDS: METHYLPREDNISOLONE IV 60 MG in SYRINGE 0 ML IV SCH (06:32)
[2018-03-09 06:39] LABS: CALCIUM 9.1 mg/dl (8.5-10.1); CREATININE 0.95 mg/dl (0.60-1.20); POTASSIUM 3.5 mmol/L (3.5-5.1)
[2018-03-09] MEDS: AZITHROMYCIN 250 MG TAB PO SCH (08:03)
[2018-03-09] MEDS: AcetaZOLAMIDE 500 MG CAPCR PO SCH ×2 (08:03→13:07)
[2018-03-09] MEDS: TOPIRAMATE 100 MG TAB PO SCH (08:04)
--- NOTE | 2018-03-09 09:00 | Pulmonology Progress Note ---
Pulmonary Progress Note Date of Service Mar 09, 2018. Attending Dr. Reyna Subjective Patient lying in bed sleeping when I walked in the room off oxygen saturating at 95-96%. She was easily arousable and moves her saturations up to 97-98% on room air. She was so no signs of respiratory insufficiency. Vital signs: Stable on room air Respiratory: Increasing breath sounds with some wheezing appreciated Cardiac: S1-S2 regular rate and rhythm distant heart sounds Abdomen: Positive bowel sounds soft nontender Extremities: No clubbing cyanosis or edema Objective Patient is able to sit up in bed today have a conversation with some minimal tachypnea: Vital signs: Stable on FiO2 35%: Peak flow meter: 280 cc Respiratory: Expiratory wheezes appreciated but increased movement over the last 24 hours Cardiac: S1-S2 regular rate and rhythm no murmurs rubs or gallops appreciated Abdomen: Soft nontender PmHx: Severe persistent asthma, chronic GERD/Amadou fundoplication 2, idiopathic intracranial hypertension/pseudotumor cerebri, demyelinating disease PsHx: sophagogastric Fundoplasty Amadou Fundoplication x2, , dilation and curettage, bronchoscopy/biopsy, endometrial biopsy Pulmonary medications 1. Montelukast 10 mg 2. methylprednisolone 60 mg IV every 8 3. Azithromycin 4. Flonase nasal spray 5. Xopenex nebulizer Assessment & Plan 27-year-old female admitted for asthma exacerbation: 1. Severe Persistent Asthma: Patient notably improving moved to oral prednisone today 40 mg. She is responding well to treatment and I would continue with a slow taper over a 2 week window. Also suggest we continue 5 day course of antibiotics. After patient's discharge follow-up with pulmonary as well as [facility] binder cutter hand are possible [facility] binder cutter hand as the patient was notably well controlled on Xolair in the past and reevaluation is most likely warranted. Today she was able to reach 300 cc on a peak flow meter. 2. respiratory acidosis: Patient's VBG showed no signs of hypercapnia and her lactic acidosis was most likely from the lactate secondary to multiple rounds of albuterol. I do not believe this patient never suffered from a severe respiratory acidosis. #3 GERD: Patient will need further workup as an outpatient with Pantoja study. #4 sleep apnea: Patient does have signs and symptoms possibly characteristic of sleep apnea which will require outpatient PSG. At this time I would monitor her but use BiPAP only when necessary as her GERD may be exacerbated by BiPAP/ noninvasive ventilation per Signoff: As the patient is notably improving time. Thank you very much for this consultation. Data Medications: Current Inpatient Medications Medications (Trade) Dose Ordered Sig/Cheryl Route Start Time Stop Time Status Last Admin Dose Admin Acetaminophen (Tylenol Tab) 650 mg Q4H PRN PO 03/06/18 21:15 04/05/18 21:14 Ondansetron HCl (Zofran Inj) 4 mg Q6H PRN IV 03/06/18 21:15 04/05/18 21:14 Nitroglycerin (Nitrostat Tab) 0.4 mg UD PRN SL 03/06/18 21:15 04/05/18 21:14 Polyethylene (Miralax Powder Packet) 17 gm DAILY PRN PO 03/06/18 21:15 04/05/18 21:14 Acetazolamide (Diamox Sequels) 500 mg TID PO 03/07/18 09:00 04/06/18 08:59 03/09/18 08:03 500 MG Albuterol (Ventolin Hfa Inhaler) 2 puffs Q4H PRN INH 03/06/18 21:15 04/05/18 21:14 03/07/18 05:28 2 PUFFS Acetaminophen/ Butalbital/ Caffeine (Fioricet Tab) 1 tab BID PRN PO 03/06/18 21:15 04/05/18 21:14 Fluticasone Propionate (Flonase Nasal [place]) 2 sprays DAILY PRN JANNETTE 03/06/18 21:15 04/05/18 21:14 Meclizine HCl (Antivert Tab) 25 mg QID PRN PO 03/06/18 21:15 04/05/18 21:14 Rizatriptan Benzoate (Maxalt Tab) 10 mg UD PRN PO 03/06/18 21:15 04/05/18 21:14 Topiramate (Topamax Tab) 100 mg BID PO 03/07/18 09:00 04/06/18 08:59 03/09/18 08:04 100 MG Azithromycin (Zithromax Tab) 500 mg QAM PO 03/07/18 09:00 03/14/18 08:59 03/09/18 08:03 500 MG Levalbuterol (Xopenex 1.25MG/ 0.5ML Neb) 1.25 mg Q6R INH 03/07/18 03:00 04/06/18 02:59 03/09/18 06:54 1.25 MG Loratadine (Claritin Tab) 10 mg DAILY PRN PO 03/06/18 21:15 04/05/18 21:14 Montelukast Sodium (Singulair Tab) 10 mg HS PO 03/07/18 21:00 04/06/18 20:59 03/08/18 21:15 10 MG Levalbuterol (Xopenex 1.25MG/ 0.5ML Neb) 1.25 mg Q2R PRN INH 03/07/18 06:45 04/05/18 21:14 03/08/18 17:36 1.25 MG Prednisone (PredniSONE TAB) 40 mg DAILY PO 03/09/18 09:00 03/27/18 08:59 03/09/18 08:03 40 MG Calcium Carbonate (Tums Chew Tab) 1,000 mg Q6H PRN PO 03/08/18 16:30 04/07/18 16:29 03/08/18 17:14 1,000 MG Enoxaparin Sodium (Lovenox Inj) 40 mg DAILY@1900 SQ 03/08/18 19:00 04/07/18 18:59 Vital Signs: Date Time Temp Pulse Resp B/P (MAP) Pulse Ox O2 Delivery O2 Flow Rate FiO2 03/09/18 08:00 36.8 79 16 108/63 (78) 99 03/09/18 08:00 Room Air 03/09/18 06:54 77 16 98 Mask 4.0 03/09/18 03:29 36.7 76 14 118/66 (83) 95 Room Air 03/09/18 02:25 88 16 96 Room Air 03/08/18 23:38 36.7 66 17 105/66 (79) 94 Room Air 03/08/18 20:00 Nasal Cannula Oxymask 03/08/18 19:52 37.2 84 18 112/68 (83) 96 Room Air 03/08/18 19:05 68 16 96 Mask 3.0 03/08/18 17:37 88 18 97 Mask 3.0 03/08/18 15:02 36.8 64 16 106/61 (76) 96 Room Air 03/08/18 14:09 88 16 95 Room Air 03/08/18 12:00 98 Oxymask 3.0 03/08/18 11:41 36.8 74 18 121/63 (82) 97 Laboratory Results: Last 24 Hours Test 03/09/18 05:49 White Blood Count 20.90 K/uL Red Blood Count 4.99 M/uL Hemoglobin 13.6 g/dL Hematocrit 41.4 % Mean Corpuscular Volume 83.0 fL Mean Corpuscular Hemoglobin 27.3 pg Mean Corpuscular Hemoglobin Concent 32.9 g/dl Platelet Count 312 K/uL Mean Platelet Volume 10.0 fL Neutrophils (%) (Auto) 90.9 % Lymphocytes (%) (Auto) 7.0 % Monocytes (%) (Auto) 1.6 % Eosinophils (%) (Auto) 0.0 % Basophils (%) (Auto) 0.0 % Neutrophils # (Auto) 18.99 K/uL Lymphocytes # (Auto) 1.46 K/uL Monocytes # (Auto) 0.34 K/uL Eosinophils # (Auto) 0.00 K/uL Basophils # (Auto) 0.00 K/uL RDW Standard Deviation 47.7 fL RDW Coefficient of Variation 15.8 % Immature Granulocyte % (Auto) 0.5 % Immature Granulocyte # (Auto) 0.11 K/uL Sodium Level 139 mmol/L Potassium Level 3.5 mmol/L Chloride Level 111 mmol/L Carbon Dioxide Level 20 mmol/L Anion Gap 9.0 mmol/L Blood Urea Nitrogen 19 mg/dl Creatinine 0.95 mg/dl Est Creatinine Clear Calc Drug Dose 95.3 ml/min Estimated GFR () 95.8 Estimated GFR (Non- 82.7 BUN/Creatinine Ratio 19.8 Random Glucose 117 mg/dl Calcium Level 9.1 mg/dl Magnesium Level 2.3 mg/dl
[2018-03-09] MEDS: LEVALBUTEROL 1.25MG/0.5ML NEB INH PRN (11:10)
[2018-03-09] MEDS: ENOXAPARIN 40 MG/0.4 ML SYR SQ SCH (19:56)
--- NOTE | 2018-03-09 20:45 | Progress Note ---
Medicine Progress Note Date & Time of Visit: Mar 09, 2018 at 20:41. Subjective Seen resting in bed, comfortable Now off oxygen supplement, not in distress States she feels improved compared to yesterday No dyspnea, less cough No other symptoms Objective Last 8 Hrs Date Time Temp Pulse Resp B/P (MAP) Pulse Ox O2 Delivery O2 Flow Rate FiO2 03/09/18 20:00 Room Air Oxymask 03/09/18 19:17 37.0 85 16 119/72 (88) 96 Room Air 03/09/18 18:51 77 16 97 Mask 2.0 03/09/18 16:00 97 Room Air 03/09/18 15:36 36.8 97 18 113/68 (83) 97 Room Air 03/09/18 14:27 87 16 96 Room Air Physical Exam: General-oriented 3, not in distress, speaks in sentences with mild accessory muscle use Eyes-anicteric Neck- no jvd Lungs- Good air entry bilaterally, no wheezing no rales Heart-normal rate, regular rhythm; no murmur Abdomen- normal bowel sounds, soft, nontender, Extremities- no pretibial edema, no calf tenderness Neuro- alert, oriented x 3; no gross focal neurologic deficits Skin- warm & dry Laboratory Results: Last 24 Hours Test 03/09/18 05:49 White Blood Count 20.90 K/uL Red Blood Count 4.99 M/uL Hemoglobin 13.6 g/dL Hematocrit 41.4 % Mean Corpuscular Volume 83.0 fL Mean Corpuscular Hemoglobin 27.3 pg Mean Corpuscular Hemoglobin Concent 32.9 g/dl Platelet Count 312 K/uL Mean Platelet Volume 10.0 fL Neutrophils (%) (Auto) 90.9 % Lymphocytes (%) (Auto) 7.0 % Monocytes (%) (Auto) 1.6 % Eosinophils (%) (Auto) 0.0 % Basophils (%) (Auto) 0.0 % Neutrophils # (Auto) 18.99 K/uL Lymphocytes # (Auto) 1.46 K/uL Monocytes # (Auto) 0.34 K/uL Eosinophils # (Auto) 0.00 K/uL Basophils # (Auto) 0.00 K/uL RDW Standard Deviation 47.7 fL RDW Coefficient of Variation 15.8 % Immature Granulocyte % (Auto) 0.5 % Immature Granulocyte # (Auto) 0.11 K/uL Sodium Level 139 mmol/L Potassium Level 3.5 mmol/L Chloride Level 111 mmol/L Carbon Dioxide Level 20 mmol/L Anion Gap 9.0 mmol/L Blood Urea Nitrogen 19 mg/dl Creatinine 0.95 mg/dl Est Creatinine Clear Calc Drug Dose 95.3 ml/min Estimated GFR () 95.8 Estimated GFR (Non- 82.7 BUN/Creatinine Ratio 19.8 Random Glucose 117 mg/dl Calcium Level 9.1 mg/dl Magnesium Level 2.3 mg/dl Assessment & Plan ASSESSMENT AND PLAN: This 27-year-old female presents with asthma exacerbation. 1. Acute exacerbation of asthma, moderate persistent, failed outpatient treatment with steroids. - Chest x-ray no signs of pneumonia -Wean off BiPAP Doing better on room air -Given Solu-Medrol 60 mg IV every 8 hours transitioned to prednisone 40 mg p.o. daily, levalbuterol every 6 hours -Continue to monitor peak flow meter -Pulmonary consulted, appreciate the recommendations 2. Migraines. Stable continue home medications. 3. Allergies. Claritin p.r.n. 4. History of iron deficiency anemia. 5. History of idiopathic intracranial hypertension and demyelinating disease, on Diamox and Topamax. 6. Deep venous thrombosis prophylaxis Lovenox 7. Disposition: anticipate d/c home tomorrow if medically stable Current Inpatient Medications: Current Inpatient Medications Medications (Trade) Dose Ordered Sig/Cheryl Route Start Time Stop Time Status Last Admin Dose Admin Acetaminophen (Tylenol Tab) 650 mg Q4H PRN PO 03/06/18 21:15 04/05/18 21:14 Ondansetron HCl (Zofran Inj) 4 mg Q6H PRN IV 03/06/18 21:15 04/05/18 21:14 Nitroglycerin (Nitrostat Tab) 0.4 mg UD PRN SL 03/06/18 21:15 04/05/18 21:14 Polyethylene (Miralax Powder Packet) 17 gm DAILY PRN PO 03/06/18 21:15 04/05/18 21:14 Acetazolamide (Diamox Sequels) 500 mg TID PO 03/07/18 09:00 04/06/18 08:59 03/09/18 13:07 500 MG Albuterol (Ventolin Hfa Inhaler) 2 puffs Q4H PRN INH 03/06/18 21:15 04/05/18 21:14 03/07/18 05:28 2 PUFFS Acetaminophen/ Butalbital/ Caffeine (Fioricet Tab) 1 tab BID PRN PO 03/06/18 21:15 04/05/18 21:14 Fluticasone Propionate (Flonase Nasal [place]) 2 sprays DAILY PRN JANNETTE 03/06/18 21:15 04/05/18 21:14 Meclizine HCl (Antivert Tab) 25 mg QID PRN PO 03/06/18 21:15 04/05/18 21:14 Rizatriptan Benzoate (Maxalt Tab) 10 mg UD PRN PO 03/06/18 21:15 04/05/18 21:14 Topiramate (Topamax Tab) 100 mg BID PO 03/07/18 09:00 04/06/18 08:59 03/09/18 08:04 100 MG Azithromycin (Zithromax Tab) 500 mg QAM PO 03/07/18 09:00 03/14/18 08:59 03/09/18 08:03 500 MG Levalbuterol (Xopenex 1.25MG/ 0.5ML Neb) 1.25 mg Q6R INH 03/07/18 03:00 04/06/18 02:59 03/09/18 18:51 1.25 MG Loratadine (Claritin Tab) 10 mg DAILY PRN PO 03/06/18 21:15 04/05/18 21:14 Montelukast Sodium (Singulair Tab) 10 mg HS PO 03/07/18 21:00 04/06/18 20:59 03/08/18 21:15 10 MG Levalbuterol (Xopenex 1.25MG/ 0.5ML Neb) 1.25 mg Q2R PRN INH 03/07/18 06:45 04/05/18 21:14 03/09/18 11:10 1.25 MG Prednisone (PredniSONE TAB) 40 mg DAILY PO 03/09/18 09:00 03/27/18 08:59 03/09/18 08:03 40 MG Calcium Carbonate (Tums Chew Tab) 1,000 mg Q6H PRN PO 03/08/18 16:30 04/07/18 16:29 03/08/18 17:14 1,000 MG Enoxaparin Sodium (Lovenox Inj) 40 mg DAILY@1900 SQ 03/08/18 19:00 04/07/18 18:59
[2018-03-10] VITALS (7 sets, daily range): BP systolic 97–118; BP diastolic 62–81; PULSE 54–86; TEMP 36.6–37; O2SAT 96–99
[2018-03-10] MEDS: LEVALBUTEROL 1.25MG/0.5ML NEB INH SCH ×2 (07:04→14:19)
[2018-03-10] MEDS: TOPIRAMATE 100 MG TAB PO SCH (08:17)
[2018-03-10] MEDS: AcetaZOLAMIDE 500 MG CAPCR PO SCH ×2 (08:17→13:16)
[2018-03-10] MEDS: AZITHROMYCIN 250 MG TAB PO SCH (08:18)
--- NOTE | 2018-03-10 14:38 | Progress Note ---
Medicine Progress Note Date & Time of Visit: Mar 10, 2018 at 14:33. Subjective seen resting in bed, comfortable states she feels much better ambulated in the hallway, no issues , no oxygen supplement needed less cough no chest pain denies other symptoms states she is ready and would like to be discharged today Objective Last 8 Hrs Date Time Temp Pulse Resp B/P (MAP) Pulse Ox O2 Delivery O2 Flow Rate FiO2 03/10/18 14:21 72 16 96 Room Air 03/10/18 11:52 36.7 86 16 111/65 (80) 99 03/10/18 09:57 36.9 76 18 98 Mask 03/10/18 08:09 36.9 76 18 118/73 (88) 98 03/10/18 08:00 Room Air 03/10/18 07:04 72 16 97 Mask 2.0 Physical Exam: General-oriented 3, not in distress, speaks in sentences with mild accessory muscle use Eyes-anicteric Neck- no jvd Lungs- Good air entry bilaterally, no wheezing no rales clear breath sounds bilaterally Heart-normal rate, regular rhythm; no murmur Abdomen- normal bowel sounds, soft, nontender Extremities- no pretibial edema, no calf tenderness Neuro- alert, oriented x 3; no gross focal neurologic deficits Skin- warm & dry Assessment & Plan ASSESSMENT AND PLAN: This 27-year-old female presents with asthma exacerbation. 1. Acute exacerbation of asthma, moderate persistent - failed outpatient treatment with steroids. - Chest x-ray no signs of pneumonia - Weaned off BiPAP, to facemask, then weaned off oxygen supplement -Given Solu-Medrol 60 mg IV every 8 hours transitioned to prednisone 40 mg p.o. daily, levalbuterol every 6 hours -Pulmonary consulted, Dr. Reyna - discharge plan: Prednisone 40mg po daily , taper off slowly x 2 weeks Azithromycin po x 1 more day to complete 5 days Nebs PRN continue Singulair ff up with [facility] Axel Dietz in 2 weeks ff up with [facility] 2. Migraines. Stable continue home medications. 3. Allergies. Claritin p.r.n. 4. History of iron deficiency anemia. 5. History of idiopathic intracranial hypertension and demyelinating disease, on Diamox and Topamax. 6. Deep venous thrombosis prophylaxis Lovenox given 7. Disposition: ff up with PCP in 3-5 days ff up with [facility] Axel Dietz in 2 weeks ff up with [facility] Current Inpatient Medications: Current Inpatient Medications Medications (Trade) Dose Ordered Sig/Cheryl Route Start Time Stop Time Status Last Admin Dose Admin Acetaminophen (Tylenol Tab) 650 mg Q4H PRN PO 03/06/18 21:15 04/05/18 21:14 Ondansetron HCl (Zofran Inj) 4 mg Q6H PRN IV 03/06/18 21:15 04/05/18 21:14 Nitroglycerin (Nitrostat Tab) 0.4 mg UD PRN SL 03/06/18 21:15 04/05/18 21:14 Polyethylene (Miralax Powder Packet) 17 gm DAILY PRN PO 03/06/18 21:15 04/05/18 21:14 Acetazolamide (Diamox Sequels) 500 mg TID PO 03/07/18 09:00 04/06/18 08:59 03/10/18 13:16 500 MG Albuterol (Ventolin Hfa Inhaler) 2 puffs Q4H PRN INH 03/06/18 21:15 04/05/18 21:14 03/07/18 05:28 2 PUFFS Acetaminophen/ Butalbital/ Caffeine (Fioricet Tab) 1 tab BID PRN PO 03/06/18 21:15 04/05/18 21:14 Fluticasone Propionate (Flonase Nasal [place]) 2 sprays DAILY PRN JANNETTE 03/06/18 21:15 04/05/18 21:14 Meclizine HCl (Antivert Tab) 25 mg QID PRN PO 03/06/18 21:15 04/05/18 21:14 Rizatriptan Benzoate (Maxalt Tab) 10 mg UD PRN PO 03/06/18 21:15 04/05/18 21:14 Topiramate (Topamax Tab) 100 mg BID PO 03/07/18 09:00 04/06/18 08:59 03/10/18 08:17 100 MG Azithromycin (Zithromax Tab) 500 mg QAM PO 03/07/18 09:00 03/14/18 08:59 03/10/18 08:18 500 MG Levalbuterol (Xopenex 1.25MG/ 0.5ML Neb) 1.25 mg Q6R INH 03/07/18 03:00 04/06/18 02:59 03/10/18 14:19 1.25 MG Loratadine (Claritin Tab) 10 mg DAILY PRN PO 03/06/18 21:15 04/05/18 21:14 Montelukast Sodium (Singulair Tab) 10 mg HS PO 03/07/18 21:00 04/06/18 20:59 03/08/18 21:15 10 MG Levalbuterol (Xopenex 1.25MG/ 0.5ML Neb) 1.25 mg Q2R PRN INH 03/07/18 06:45 04/05/18 21:14 03/09/18 11:10 1.25 MG Prednisone (PredniSONE TAB) 40 mg DAILY PO 03/09/18 09:00 03/27/18 08:59 03/10/18 08:17 40 MG Calcium Carbonate (Tums Chew Tab) 1,000 mg Q6H PRN PO 03/08/18 16:30 04/07/18 16:29 03/08/18 17:14 1,000 MG Enoxaparin Sodium (Lovenox Inj) 40 mg DAILY@1900 SQ 03/08/18 19:00 04/07/18 18:59
[2018-03-10] MEDS ORDERED: PRED10TA PO (15:07)
[2018-03-10] MEDS ORDERED: ALBINS/ NEB (15:07)
[2018-03-10] MEDS ORDERED: AZIT-57 PO (15:07)
[2018-03-10] MEDS ORDERED: VNTHFA/IN INH (15:07)
--- NOTE | 2018-03-10 15:13 | Discharge Instructions ---
Discharge Instructions Date of Service Mar 10, 2018. Admission Reason for Admission: Asthma With Acute Exacerbation In Adult Discharge Discharge Diagnosis / Problem: ASTHMA WITH ACUTE EXACERBATION Discharge Goals Goal(s): Diagnostic testing, Therapeutic intervention Activity Recommendations Activity Limitations: as noted below (NO HEAVY EXERTION UNTIL RE-EVALUATED BY PRIMARY CARE PHYSICIAN ON FOLLOW UP) Lifting Limitations: until after follow-up appointment Exercise/Sports Limitations: until after follow-up appointment Driving or Machine Use: NO DRIVING UNTIL RE-EVALUATED BY PRIMARY CARE PHYSICIAN . Instructions / Follow-Up Instructions / Follow-Up PLEASE REFER TO YOUR NEW MEDICATION LIST AND FOLLOW INSTRUCTIONS CAREFULLY. CALL YOUR PRIMARY CARE PHYSICIAN OR RETURN TO THE ER IMMEDIATELY IF WITH RECURRENCE OF SYMPTOMS, INCREASING COUGH, SHORTNESS OF BREATH. FOLLOW UP WITH PRIMARY CARE PHYSICIAN DR. HOWARD ON Thursday03/12/18 AT 10:15 AM. [facility]. HAMEED IN 2 WEEKS. Current Hospital Diet Patient's current hospital diet: Regular Diet Discharge Diet Recommended Diet: Regular Diet Pending Studies Studies pending at discharge: no Medical Emergencies . Who to Call and When: Medical Emergencies: If at any time you feel your situation is an emergency, please call 911 immediately. . Non-Emergent Contact Non-Emergency issues call your: Primary Care Provider, [employer] Developer Call Non-Emergent contact if: you have a fever, you have any medication questions . . "Provider Documentation" section prepared by Matias Garcia. .
--- NOTE | 2018-03-10 15:17 | Discharge Summary ---
Discharge Summary Date of Service Mar 10, 2018. Discharge Summary Admission Date: Mar 06, 2018 at 21:12 Discharge Date: Mar 10, 2018 Discharge Disposition: Home Principal Diagnosis: Acute exacerbation of asthma, moderate persistent Secondary Diagnoses/Problems: Please refer to hospital course below. Procedures: CHEST ONE VIEW PORTABLE CLINICAL HISTORY: sob asthma COMPARISON STUDY: 07/17/2017 FINDINGS: The cardiac and mediastinal contours are normal. There is no evidence of focal pulmonary consolidation. There is no evidence of failure. No pleural effusions are visualized.[ IMPRESSION: No active disease in the chest. Consultations: Pulmonary Dr. Hameed Pending Studies/Follow-Up: Please refer to hospital course below. Medication Reconciliation New Medications: Prednisone Tab (Prednisone) 10 Mg Tab 10 MG PO UD for 12 Days, #23 TAB 0 Refills take 4 tabs x 1 day, then take 3 tabs x 3 days, then take 2 tabs x 3 days, then take 1 tab x 3 days, then take 1/2 tab x 2 days, then STOP Azithromycin (Azithromycin) 250 Mg Tab 250 MG PO QAM for 1 Day, #1 TAB take medication on 03/11/18 Continued Medications: Acetazolamide (Acetazolamide ER) 500 Mg Capcr 500 MG PO TID Albuterol Hfa (Ventolin Hfa) 200 Puffs/82152 Mcg Aers 2 PUFFS INH Q4H PRN for SOB/Wheezing for 30 Days, #1 INHALER 1 Refill (This prescription has been renewed) Albuterol Sulf (Proventil 0.083% 2.5MG/3ML) 2.5 Mg/3 Ml Nebu 2.5 MG NEB Q4-6HRS PRN for SOB/Wheezing for 30 Days, #30 UNITS 1 Refill (This prescription has been renewed) Pwsbavxmri-Scamfecnhakxs-Qpzxo (Esgic) 1 Tab Tab 1-2 TABS PO BID PRN for Headache Erenumab-Aooe (Aimovig) 70 Mg/Ml Inj 1 DOSE INJ UD PRN for Migraine Fluticasone Propionate (Nasal) (Flonase Allergy Relief) 50 Mcg/Act Spr 2 SPRAYS JANNETTE DAILY PRN for Allergy Symptoms Loratadine (Claritin) 10 Mg Tab 10 MG PO DAILY PRN for Allergic Reaction, #10 TAB Meclizine Hcl (Meclizine Hcl) 25 Mg Tab 25 MG PO QID PRN for Dizziness, TAB Montelukast Sodium (Singulair) 10 Mg Tab 10 MG PO HS, #30 TAB Rizatriptan Benzoate (Maxalt) 10 Mg Tab 10 MG PO UD PRN for Migraine, TAB TAKE ONE TABLET AT ONSET OF HEADACHE, MAY REPEAT EVERY 2 HOURS IF NEEDED Topiramate (Topiramate) 100 Mg Tab 100 MG PO BID Admission Information HPI (per Admitting provider): DATE OF ADMISSION: 03/06/2018 CHIEF COMPLAINT: Shortness of breath. HISTORY OF PRESENT ILLNESS: This is a 27-year-old female with past medical history significant for asthma moderate persistent, allergic rhinitis, iron deficiency anemia, idiopathic intracranial hypertension, demyelinating disease, presents with asthma attack, patient says is going for 1 month. She was following with family doctor. Advised to come to the ER, but she does not want to come. She says she has history of severe asthma attacks in the past . She was treated with 1 dose of Solu-Medrol and prednisone as outpatient , but it was not getting better, so she gave up and came to the ER today. She complains of dry cough, once in a while brings up clear sputum. Has some chest tightness, headaches, some dizziness, blurred visions, some runny nose. Denies any earaches. No sore throat, no difficulty swallowing. No nausea, no vomiting, no abdominal pain. Normal bowel and bladder movements. No blood in the stools, no blood in the urine. Currently on BiPAP and saturating okay and seems comfortable. No edema in the legs. No rash seen. Physical Exam (per Admitting): GENERAL: The patient is of moderate built, not in distress. VITAL SIGNS: Temperature 36.9, pulse 95, respiratory rate 24, blood pressure 126/75, oxygen 95% on BiPAP. HEENT: No pallor, no icterus. Pupils equal, round, and reactive to light. NECK: No JVD, no neck masses, no carotid bruits. CARDIOVASCULAR: S1, S2 heard. Tachycardia. No murmurs. RESPIRATORY SYSTEM: Clear to auscultation bilaterally, diminished breath sounds. No wheezing, no crackles heard at this time. ABDOMEN: Soft, bowel sounds present. Nontender. No distention. CENTRAL NERVOUS SYSTEM: Cranial nerves II through XII grossly intact, nonfocal. EXTREMITIES: No edema, no erythema. Hospital Course ASSESSMENT AND PLAN: This 27-year-old female presents with asthma exacerbation. 1. Acute exacerbation of asthma - failed outpatient treatment with steroids. - Chest x-ray no signs of pneumonia -Given Solu-Medrol 60 mg IV every 8 hours transitioned to prednisone 40 mg p.o. daily, levalbuterol every 6 hours -Pulmonary consulted, Dr. Hameed Weaned off BiPAP, to facemask, then weaned off oxygen supplement - discharge plan: Prednisone 40mg po daily , taper off slowly x 2 weeks Azithromycin po x 1 more day to complete 5 days Nebs PRN continue Singulair ff up with [facility] in 2 weeks ff up with [facility] 2. Migraines. Stable continue home medications. 3. Allergies. Claritin p.r.n. 4. History of iron deficiency anemia. 5. History of idiopathic intracranial hypertension and demyelinating disease, on Diamox and Topamax. 6. Deep venous thrombosis prophylaxis Lovenox given 7. Disposition: ff up with PCP in 3-5 days ff up with [facility] in 2 weeks ff up with [facility] Total time spent on discharge = 30 minutes This includes examination of the patient, discharge planning, medication reconciliation, and communication with other providers. Discharge Instructions Discharge Instructions Date of Service Mar 10, 2018. Admission Reason for Admission: Asthma With Acute Exacerbation In Adult Discharge Discharge Diagnosis / Problem: ASTHMA WITH ACUTE EXACERBATION Discharge Goals Goal(s): Diagnostic testing, Therapeutic intervention Activity Recommendations Activity Limitations: as noted below (NO HEAVY EXERTION UNTIL RE-EVALUATED BY PRIMARY CARE PHYSICIAN ON FOLLOW UP) Lifting Limitations: until after follow-up appointment Exercise/Sports Limitations: until after follow-up appointment Driving or Machine Use: NO DRIVING UNTIL RE-EVALUATED BY PRIMARY CARE PHYSICIAN . Instructions / Follow-Up Instructions / Follow-Up PLEASE REFER TO YOUR NEW MEDICATION LIST AND FOLLOW INSTRUCTIONS CAREFULLY. CALL YOUR PRIMARY CARE PHYSICIAN OR RETURN TO THE ER IMMEDIATELY IF WITH RECURRENCE OF SYMPTOMS, INCREASING COUGH, SHORTNESS OF BREATH. FOLLOW UP WITH PRIMARY CARE PHYSICIAN DR. HOWARD ON Thursday03/12/18 AT 10:15 AM. FOLLOW UP WITH [facility]. HAMEED IN 2 WEEKS. Current Hospital Diet Patient's current hospital diet: Regular Diet Discharge Diet Recommended Diet: Regular Diet Pending Studies Studies pending at discharge: no Medical Emergencies . Who to Call and When: Medical Emergencies: If at any time you feel your situation is an emergency, please call 911 immediately. . Non-Emergent Contact Non-Emergency issues call your: Primary Care Provider, [employer] Call Non-Emergent contact if: you have a fever, you have any medication questions . . "Provider Documentation" section prepared by Matias Garcia. .
== END 2018-03-10 18:17 | disposition home or self-care (01) | DRG 202 ==
LOC: C.EDB 19:25 → C.2E 21:12 → EDBEDREQ 21:16 → ENRESERV 21:19
PROVIDERS: ADMIT Internal Medicine; ATTEND Internal Medicine
DX: J45.41 Moderate persistent asthma with (acute) exacerbation (principal); E87.2 Acidosis; G37.9 Demyelinating disease of central nervous system, unspecified; K21.9 Gastro-esophageal reflux disease without esophagitis; G93.2 Benign intracranial hypertension; G43.909 Migraine, unspecified, not intractable, without status migrainosus; Z51.81 Encounter for therapeutic drug level monitoring; Z79.01 Long term (current) use of anticoagulants; Z88.2 Allergy status to sulfonamides; Z91.048 Other nonmedicinal substance allergy status; Z83.3 Family history of diabetes mellitus; Z82.49 Family history of ischemic heart disease and other diseases of the circulatory system; Z82.69 Family history of other diseases of the musculoskeletal system and connective tissue; Z82.5 Family history of asthma and other chronic lower respiratory diseases; Z83.49 Family history of other endocrine, nutritional and metabolic diseases; Z82.79 Family history of other congenital malformations, deformations and chromosomal abnormalities

== ENCOUNTER 2018-09-10 15:52 | Observation (INO) ==
[2018-09-10] MEDS ORDERED: ALBUT/IPRATROP 3MG/0.5MG NEB 3 ML VIAL INH STA (16:13)
[2018-09-10] MEDS ORDERED: methylPREDNISolone 125 MG/2 ML VIAL IV STA (16:13)
--- NOTE | 2018-09-10 16:26 | Emergency Department Note ---
History of Present Illness General Chief complaint: Asthma Stated complaint: ASTHMA ATTACK Time Seen by Provider: 09/10/18 16:06 History of Present Illness Maximum Pain Intensity: 7 28-year-old female who presents to emergency department with complaint of an asthma exacerbation. The patient reports that her symptoms have been worsening for the past week. The patient has a history of poorly controlled asthma. She was admitted in June 2018 for a moderate exacerbation. She reports that the symptoms are worse. She has been utilizing nebulizer treatments at home without relief. The patient reports chest pressure as well. She denies any recent upper respiratory infections. Patient denies . She rates her overall discomfort a 7 out of 10. Home Medications Home Medications Medication Instructions Recorded Confirmed Type acetazolamide 500 mg PO TID 05/20/18 09/10/18 History albuterol sulfate 2 puff INHALATION Q6H PRN 05/20/18 09/10/18 History albuterol sulfate 2.5 mg INHALATION Q4H PRN 05/20/18 09/10/18 History erenumab-aooe [Aimovig 1 dose SUBCUT UD 05/20/18 09/10/18 History Autoinjector] meclizine 25 mg PO TID PRN 05/20/18 09/10/18 History multivitamin 1 tab PO QAM 05/20/18 09/10/18 History rizatriptan [Maxalt] 10 mg PO UD PRN 05/20/18 09/10/18 History tiotropium bromide [Spiriva 2 puff INHALATION BID 05/20/18 09/10/18 History Respimat] topiramate 100 mg PO BID 05/20/18 09/10/18 History budesonide-formoterol 2 puff INHALATION BID 07/06/18 09/10/18 History fluticasone [Flonase Allergy 2 spray INTRANASAL DAILY PRN 07/06/18 09/10/18 History Relief] montelukast [Singulair] 10 mg PO DAILY 07/06/18 09/10/18 History promethazine 25 mg PO Q6H PRN #10 tab 08/28/18 09/10/18 Rx xqiyqpxffw-ydvlufkkxm-mlr-cod 1 cap PO Q4H PRN 09/10/18 09/10/18 History Allergies Allergy/AdvReac Type Severity Reaction Status Date / Time Bactrim Allergy Unknown HIVES Verified 11/29/17 22:58 sulfamethoxazole Allergy Unknown HIVES Verified 09/10/18 16:58 trimethoprim Allergy Unknown HIVES Verified 09/10/18 16:58 Past Med/Surg History Medical History Migraines (Chronic) Idiopathic intracranial hypertension (Chronic) Iron deficiency anemia (Chronic) GERD (gastroesophageal reflux disease) (Chronic) Asthma, moderate persistent (Chronic) Asthma (Chronic) History of migraine (Chronic) Surgical History History of Amadou fundoplication (Resolved) X 2- History of bronchoscopy (Resolved) History of section (Resolved) X 2 History of dilatation and curettage (Resolved) History of esophagogastroduodenoscopy (EGD) (Resolved) Family History Family/Other Family history of diabetes mellitus Social History Current Living Situation: Spouse and Family Other Information That Helps Us Care for You: No Feels Safe at Home: Yes Safety Concerns: Feels Safe At This Time Smoking Status: Never smoker Do You Dip or Chew Tobacco: No Hx Alcohol Use: No Hx Substance Use: No Beliefs That Will Affect Care: None Preferred Language: Trinidadian Communication Ability: Effective District Branch Manager Required: No Review of Systems HEENT: Denies dizziness, visual problems, hearing loss, tinnitus. Denies difficulty swallowing or oral lesions. PULMONARY: See HPI. CARDIOVASCULAR: Denies palpitations, dyspnea on exertion, orthopnea or peripheral edema. GASTROINTESTINAL: Denies diarrhea, constipation, nausea, vomiting, or abdominal pain. GENITOURINARY: Denies dysuria, frequency, urgency or nocturia. NEUROLOGIC: Denies history of epilepsy, CVA, TIA or chronic headaches. MUSCULOSKELETAL: Denies history of joint tenderness/swelling. SKIN: Denies rashes or lesions. PSYCHIATRIC: Denies history of depression or mental illness. ENDOCRINE: Denies history of diabetes or thyroid disorders. Physical Exam Vital Signs Vital Signs - 24 hr 09/10/18 15:52 09/10/18 16:01 09/10/18 16:13 Temperature 36.9 C Temperature Source Oral Sepsis Recent Fever Within 48 Hours No Sepsis New/Unexplained Change in Mental Status No Sepsis Action Taken by Nursing No Action Required Pulse Rate 92 H 99 H Pulse Rate [Right Finger] Pulse Rhythm Regular Pulse Rhythm [Right Finger] Pulse Strength [Right Finger] Respiratory Rate 20 20 Respiratory Effort / Characteristics Non-Labored Spontaneous Respiratory Depth Normal Respiratory Pattern Regular Blood Pressure 122/64 Blood Pressure [Right Arm] Blood Pressure Mean 83 Blood Pressure Mean [Right Arm] Blood Pressure Position [Right Arm] Pulse Oximetry 97 98 97 Oxygen Delivery Method Room Air Room Air Room Air 09/10/18 16:34 09/10/18 16:40 09/10/18 17:52 Temperature Temperature Source Sepsis Recent Fever Within 48 Hours Sepsis New/Unexplained Change in Mental Status Sepsis Action Taken by Nursing Pulse Rate Pulse Rate [Right Finger] 79 88 Pulse Rhythm Pulse Rhythm [Right Finger] Pulse Strength [Right Finger] Respiratory Rate 20 22 Respiratory Effort / Characteristics Non-Labored Spontaneous Non-Labored Spontaneous Respiratory Depth Normal Respiratory Pattern Regular Blood Pressure Blood Pressure [Right Arm] 121/81 Blood Pressure Mean Blood Pressure Mean [Right Arm] 94 Blood Pressure Position [Right Arm] Sitting Pulse Oximetry 98 97 94 Oxygen Delivery Method Room Air Room Air Room Air 09/10/18 19:56 09/10/18 21:37 09/10/18 21:38 Temperature Temperature Source Sepsis Recent Fever Within 48 Hours Sepsis New/Unexplained Change in Mental Status Sepsis Action Taken by Nursing Pulse Rate 100 H Pulse Rate [Right Finger] 102 H 100 H Pulse Rhythm Pulse Rhythm [Right Finger] Pulse Strength [Right Finger] Respiratory Rate 23 24 24 Respiratory Effort / Characteristics Respiratory Depth Normal Respiratory Pattern Blood Pressure 129/86 Blood Pressure [Right Arm] 107/75 129/86 Blood Pressure Mean Blood Pressure Mean [Right Arm] 85 100 Blood Pressure Position [Right Arm] Pulse Oximetry 98 97 97 Oxygen Delivery Method Room Air Room Air Room Air 09/10/18 21:57 09/10/18 22:28 09/10/18 22:58 Temperature 37.1 C Temperature Source Oral Sepsis Recent Fever Within 48 Hours Sepsis New/Unexplained Change in Mental Status Sepsis Action Taken by Nursing Pulse Rate Pulse Rate [Right Finger] 86 97 H Pulse Rhythm Pulse Rhythm [Right Finger] Regular Pulse Strength [Right Finger] Normal Respiratory Rate 18 Respiratory Effort / Characteristics Spontaneous Accessory Muscle Use Labored SOB on Exertion Other Non-Labored Labored Short of Breath SOB on Exertion Respiratory Depth Normal Normal Respiratory Pattern Irregular Regular Blood Pressure Blood Pressure [Right Arm] 147/78 H Blood Pressure Mean Blood Pressure Mean [Right Arm] 101 Blood Pressure Position [Right Arm] Lying Pulse Oximetry 97 97 Oxygen Delivery Method Room Air Room Air Room Air CONSTITUTIONAL: Healthy and well nourished. Alert and oriented X 3. Patient appears in moderate severe respiratory distress. She is unable to talk in complete sentences. Accessory muscle use is also noted. The patient is not diaphoretic. HEENT: Normocephalic, atraumatic. Pupils equal, round and reactive. Ears and nares are clear. No scleral icterus or conjunctival injection. NECK: Full active range of motion without discomfort. No JVD or carotid bruits. LYMPHATICS: No cervical chain adenopathy. RESPIRATORY: Auscultation shows very poor air movement with minimal end expiratory wheezing. No crackles, rhonchi or stridor. CARDIOVASCULAR: Regular rate and rhythm with no murmurs, rubs or gallops. GASTROINTESTINAL: Bowel sounds present in all quadrants. Soft and nontender to palpation. MUSCULOSKELETAL: Full range of motion of all joints without discomfort. INTEGUMENTARY: No rash or other significant dermatologic conditions noted. HEMATOLOGIC: No ecchymosis or petechiae. PSYCHIATRIC: Flat affect. NEUROLOGIC: No focal neurologic deficits noted. Course Patient history and physical exam were performed. Nurse's notes were reviewed. I also reviewed documentation from the patient's last admission in June 2018. She was seen by Dr. Bethea, who recommended that the patient follow-up with a equipment operator to consider placement of a titanium region because of history of GERD status post Amadou procedure x2. She also recommended that the patient undergo a sleep study, with concern for possible obstructive sleep apnea that may be undiagnosed. The patient reports that she has not had these follow-ups. Vital signs were reviewed are grossly normal. In triage and upon my evaluation , the patient was saturating 98% on room air. Respiratory rate was 20 breaths/ min. She is afebrile and normotensive. The patient, however, appears in moderately severe respiratory distress, unable to speak in full sentences and has accessory muscle use. IV access was immediately established, and labs were drawn. The patient was administered IV Solu-Medrol and magnesium sulfate. She was also administered a hour-long DuoNeb treatment. An ECG was performed, showing a normal sinus rhythm with mild sinus arrhythmia. A portable chest x- ray did not show any acute consolidations, pneumothorax or widened mediastinum. Review of labs shows a negative influenza PCR. Review of remaining labs did not show any significant findings, including a normal d-dimer and troponin. Upon final reevaluation, the patient did report feeling somewhat better, but did not feel that she was well enough for discharge. Re-auscultation after her hour-long DuoNeb did show that she was moving air more freely, with only mild and expiratory wheezing. A pretreatment peak flow was not measured, but posttreatment peak flow was 260. The case was further discussed with Dr. Luna, ED attending physician, who recommended hospitalist consultation. The case was then further discussed with the [facility] hospitalist group, who came to the emergency department for further evaluation. Please see their dictations for further treatment and final disposition. Administered Medications Ipratropium Daniels (Atrovent 0.02% 0.5mg/2.5ml) 0.5 mg INH UD DAVID Stop: 10/10/18 22:27 Last Admin: 09/10/18 22:56 Dose: 0.5 mg Levalbuterol HCl (Xopenex 1.25mg/0.5ml Neb) 1.25 mg INH UD DAVID Stop: 10/10/18 22:27 Last Admin: 09/10/18 22:56 Dose: 1.25 mg Discontinued Medications Albuterol (Duoneb) 12 ml INH ONE STA Stop: 09/10/18 16:14 Last Admin: 09/10/18 16:30 Dose: 12 ml Magnesium Sulfate/Dextrose (Magnesium Sulfate / D5w) 1 gm in 100 mls @ 100 mls/ hr IV Q1H DAVID Stop: 09/10/18 18:14 Last Infusion: 09/10/18 18:56 Dose: 0 mls/hr Admin: 09/10/18 17:47 Dose: 100 mls/hr Infusion: 09/10/18 17:47 Dose: 100 mls/hr Admin: 09/10/18 16:48 Dose: 100 mls/hr Methylprednisolone (Solumedrol) 125 mg IV NOW STA Stop: 09/10/18 16:14 Last Admin: 09/10/18 16:48 Dose: 125 mg Potassium Chloride (Klor-Con M20) 40 meq PO NOW STA Stop: 09/10/18 19:55 Last Admin: 09/10/18 20:12 Dose: 40 meq Medical Decision Making Medical Records Attestation: I reviewed the patient's medical records. Home Medications Current Medication List: was personally reviewed by me Laboratory Data Attestation: I reviewed the patient's lab results. Result diagrams: 09/10/18 16:36 09/10/18 16:36 Lab Results 09/10/18 09/10/18 09/10/18 Range/Units 16:25 16:36 16:36 WBC 9.46 (4.8-10.8) K/uL RBC 4.70 (4.2-5.4) M/uL Hgb 13.2 (12.0-16.0) g/dL Hct 39.2 (37-47) % MCV 83.4 (80-100) fL MCH 28.1 (25-34) pg MCHC 33.7 (32-36) g/dL RDW Std Deviation 46.7 H (36.4-46.3) fL RDW Coeff of Camryn 15.2 H (11.5-14.5) % Plt Count 319 (130-400) K/uL MPV 9.8 (7.4-10.4) fL Immature Gran % (Auto) 0.2 % Neut % (Auto) 61.8 % Lymph % (Auto) 28.9 % [place] % (Auto) 5.7 % Eos % (Auto) 2.9 % Baso % (Auto) 0.5 % Immature Gran # (Auto) 0.02 (0.00-0.02) K/uL Neut # (Auto) 5.85 (1.4-6.5) K/uL Lymph # (Auto) 2.73 (1.2-3.4) K/uL [place] # (Auto) 0.54 (0.11-0.59) K/uL Eos # (Auto) 0.27 (0-0.5) K/uL Baso # (Auto) 0.05 (0-0.2) K/uL PT 10.5 (9.0-12.0) Seconds INR 1.0 (0.9-1.1) APTT 27.1 (21.0-31.0) Seconds PTT Ratio 1.0 D-Dimer 350 (0-500) ug/L FEU VBG pH (7.36-7.41) VBG pCO2 (38-50) mmHg VBG pO2 mmHg VBG HCO3 mmol/L VBG O2 Saturation % VBG Base Excess mEq/L Barometric Pressure mm/Hg Sodium (136-145) mmol/L Potassium (3.5-5.1) mmol/L Chloride (98-107) mmol/L Carbon Dioxide (21-32) mmol/L Anion Gap (3-11) BUN (7-18) mg/dl Creatinine (0.6-1.2) mg/dl Est Cr Clr Drug Dosing ml/min Est GFR ( Amer) Est GFR (Non-Af Amer) BUN/Creatinine Ratio (10-20) Glucose (70-99) mg/dl Calcium (8.5-10.1) mg/dl Magnesium (1.8-2.4) mg/dl Total Bilirubin (0.2-1) mg/dl AST (15-37) U/L ALT (12-78) U/L Alkaline Phosphatase (45-117) U/L Troponin I (0-0.045) ng/ml Total Protein (6.4-8.2) gm/dl Albumin (3.4-5.0) gm/dl Globulin (2.5-4.0) gm/dl Albumin/Globulin Ratio (0.9-2) Influenza Type A (PCR) Neg for Influ A (Neg) Influenza Type B (PCR) Neg for Influ B (Neg) 09/10/18 09/10/18 Range/Units 16:36 17:34 WBC (4.8-10.8) K/uL RBC (4.2-5.4) M/uL Hgb (12.0-16.0) g/dL Hct (37-47) % MCV (80-100) fL MCH (25-34) pg MCHC (32-36) g/dL RDW Std Deviation (36.4-46.3) fL RDW Coeff of Camryn (11.5-14.5) % Plt Count (130-400) K/uL MPV (7.4-10.4) fL Immature Gran % (Auto) % Neut % (Auto) % Lymph % (Auto) % [place] % (Auto) % Eos % (Auto) % Baso % (Auto) % Immature Gran # (Auto) (0.00-0.02) K/uL Neut # (Auto) (1.4-6.5) K/uL Lymph # (Auto) (1.2-3.4) K/uL [place] # (Auto) (0.11-0.59) K/uL Eos # (Auto) (0-0.5) K/uL Baso # (Auto) (0-0.2) K/uL PT (9.0-12.0) Seconds INR (0.9-1.1) APTT (21.0-31.0) Seconds PTT Ratio D-Dimer (0-500) ug/L FEU VBG pH 7.39 (7.36-7.41) VBG pCO2 44 (38-50) mmHg VBG pO2 22 mmHg VBG HCO3 26 mmol/L VBG O2 Saturation < 60.0 % VBG Base Excess 0.7 mEq/L Barometric Pressure 738.7 mm/Hg Sodium 140 (136-145) mmol/L Potassium 3.3 L (3.5-5.1) mmol/L Chloride 107 (98-107) mmol/L Carbon Dioxide 23 (21-32) mmol/L Anion Gap 9.0 (3-11) BUN 10 (7-18) mg/dl Creatinine 1.06 (0.6-1.2) mg/dl Est Cr Clr Drug Dosing 86.6 ml/min Est GFR ( Amer) 83.3 Est GFR (Non-Af Amer) 71.9 BUN/Creatinine Ratio 9.0 L (10-20) Glucose 96 (70-99) mg/dl Calcium 9.3 (8.5-10.1) mg/dl Magnesium 1.9 (1.8-2.4) mg/dl Total Bilirubin 0.2 (0.2-1) mg/dl AST 12 L (15-37) U/L ALT 19 (12-78) U/L Alkaline Phosphatase 50 (45-117) U/L Troponin I < 0.015 (0-0.045) ng/ml Total Protein 7.4 (6.4-8.2) gm/dl Albumin 3.6 (3.4-5.0) gm/dl Globulin 3.8 (2.5-4.0) gm/dl Albumin/Globulin Ratio 1.0 (0.9-2) Influenza Type A (PCR) (Neg) Influenza Type B (PCR) (Neg) Imaging Data Attestation: I personally reviewed and interpreted this imaging study as follows : My Impression: My interpretation of a portable chest x-ray does not show any consolidations, pneumothorax or widened mediastinum. Radiologist report was reviewed. Radiologist's Impression: XR chest 1V portable CLINICAL HISTORY: Dyspnea dyspnea COMPARISON STUDY: 08/28/2017 FINDINGS: The bones soft tissues and hemidiaphragms are normal. The cardiomediastinal silhouette is normal. The lungs are clear. The pulmonary vasculature is normal. IMPRESSION: Negative chest. ECG Data Attestation: I personally reviewed and interpreted this ECG as follows: Indication: SOB/dyspnea Rhythm: normal sinus Blood Pressure Blood Pressure Findings: Elevated blood pressure Blood Pressure Disposition: elevated BP felt to be situational MDM Narrative Patient presents with complaint of shortness of breath and difficulty breathing. The patient does have a significant prior history of complicated asthma that is thought to be secondary to chronic esophageal reflux. The patient did have significant respiratory distress upon presentation with accessory muscle use and shortness of breath. The patient did have notable relief with an hour long DuoNeb treatment, intravenous corticosteroids and magnesium sulfate. Her chest x-ray does not show evidence for pneumonia or pneumothorax. Influenza screen is negative. Laboratory studies are not suggestive of pulmonary embolus or myocardial infarction. The patient has remained hemodynamically stable with good O2 saturations on room air, which the patient reports is typical with her asthma exacerbations. I do feel that the patient warrants observation given her prior history of hospitalization for asthma exacerbation. Impression & Plan Asthma exacerbation Discharge Plan Visit Data *Final* Discharge Date/Time: 09/10/18 21:38 Chief Complaint: Asthma Stated Complaint: ASTHMA ATTACK ED Provider: Radha Luna ED Midlevel Provider: Nabil Lujan Discharge Problem: Asthma exacerbation Patient Disposition: Admitted As Inpatient Discharge Instructions Interventions: ED Discharge Assessment Last Done: 09/10/18 21:38
[2018-09-10] MEDS: MAGNESIUM SULFATE / D5W 1 GM/100 ML BAG IV SCH ×2 (16:48→17:47)
[2018-09-10 17:04] LABS: Partial Thromboplastin Time 27.1 Seconds (21.0-31.0); Prothrombin Time 10.5 Seconds (9.0-12.0)
[2018-09-10 17:05] LABS: Basophils # (auto) 0.05 K/uL (0-0.2); Basophils % (auto) 0.5 %; Eosinophils # (auto) 0.27 K/uL (0-0.5); Eosinophils % (auto) 2.9 %; Hematocrit (blood only) 39.2 % (37-47); Hemoglobin 13.2 g/dL (12.0-16.0); Immature Granulocytes # (auto) 0.02 K/uL (0.00-0.02); Immature Granulocytes % (auto) 0.2 %; Lymphocytes # (auto) 2.73 K/uL (1.2-3.4); Lymphocytes % (auto) 28.9 %; Mean Corpuscular Hgb Conc 33.7 g/dL (32-36); Mean Corpuscular Volume 83.4 fL (80-100); Mean Platelet Volume 9.8 fL (7.4-10.4); Monocytes # (auto) 0.54 K/uL (0.11-0.59); Monocytes % (auto) 5.7 %; Neutrophils # (auto) 5.85 K/uL (1.4-6.5); Neutrophils % (auto) 61.8 %; Platelet Count 319 K/uL (130-400); RDW Coefficient of Variation 15.2 % (11.5-14.5); RDW Standard Deviation 46.7 fL (36.4-46.3); White Blood Count 9.46 K/uL (4.8-10.8)
[2018-09-10 17:06] LABS: Influenza A virus by PCR Neg for Influ A (Neg); Influenza B virus by PCR Neg for Influ B (Neg)
--- NOTE | 2018-09-10 17:07 | XRay Report ---
XR chest 1V portable CLINICAL HISTORY: Dyspnea dyspnea COMPARISON STUDY: 08/28/2017 FINDINGS: The bones soft tissues and hemidiaphragms are normal. The cardiomediastinal silhouette is n ormal. The lungs are clear. The pulmonary vasculature is normal. IMPRESSION: Negative chest. The above report was generated using voice recognition software. It may contain grammatical, syntax or spelling errors. Electronically signed by: Francisco Jackson M.D. 09/10/2018 5:05 PM
[2018-09-10 17:11] LABS: Alanine Aminotransferase 19 U/L (12-78); Albumin Level 3.6 gm/dl (3.4-5.0); Aspartate Aminotransferase 12 U/L (15-37); Blood Urea Nitrogen 10 mg/dl (7-18); Calcium 9.3 mg/dl (8.5-10.1); Carbon Dioxide 23 mmol/L (21-32); Chloride 107 mmol/L (98-107); Creatinine Clr Calc Pharmacy 86.6 ml/min; Est GFR (African American) 83.3; Est GFR (Non-African American) 71.9; Glucose 96 mg/dl (70-99); Potassium 3.3 mmol/L (3.5-5.1); Sodium 140 mmol/L (136-145)
[2018-09-10 17:16] LABS: Alkaline Phosphatase 50 U/L (45-117); Bilirubin,Total 0.2 mg/dl (0.2-1); Globulin 3.8 gm/dl (2.5-4.0); Total Protein 7.4 gm/dl (6.4-8.2); Troponin I < 0.015 ng/ml (0-0.045)
[2018-09-10 17:49] LABS: Base Excess VBG 0.7 mEq/L; HCO3 VBG 26 mmol/L; PCO2 VBG 44 mmHg (38-50); PO2 VBG 22 mmHg; pH VBG 7.39 (7.36-7.41)
[2018-09-10 17:52] LABS: Oxygen Saturation VBG < 60.0 %
--- NOTE | 2018-09-10 19:12 | History & Physical Report ---
Date of Service September 10, 2018 Assessment & Plan (1) Asthma exacerbation: Pt with long standing hx asthma with recurrent exacerbations, s/p amadou procedure x 2 In ER reported pt initially had accessory muscle use and SOB which improved after hour long albuterol neb. Was also given solumedrol 125mg IV, magnesium IV. Pt currently breathing improved but still with wheezing and noted SOB with talking. Reports hx improvement initially and then develops worsening again -admit -plan per attending physician (2) Hypokalemia: K: 3.3 -replace and monitor (3) Idiopathic intracranial hypertension: -on diamox (4) Migraines: -on aimovig, topamax (5) GERD (gastroesophageal reflux disease): currently uses TUMS couple of times a month Follows with Dr Lynette Jorge for routine care Pt was seen with Dr Thurston. See addendum for further assessment and plan History of Present Illness Chief Complaint: SOB/Wheezing Primary Care Provider: Lynette Jorge Pt is 28 y/o F with PMH asthma with long history of exacerbations, allergic rhinitis, GERD, demyelinating disease, idiopathic intracranial HTN, iron deficiency anemia, migraine BOLANOS's presented to ER with c/o increased SOB and wheezing. Follows with Hue Nayak/Dr Bahena. Reports has been on steroid taper once a month since 01/2018. Last steroids approx 2.5 weeks ago. Reports daily asthma attacks and has chronic daily wheezing with some days worse than others. Uses albuterol nebulizer 2-3 times a day and albuterol inhaler a couple of times a day, and uses duoneb for more severe wheezing. Reports compliance with Spiriva and Symbicort inhalers. Hx Amadou fundoplasty x 2 with reported improvement in asthma symptoms. Takes tums approx twice a month for reflux symptoms. Hx hospitalization 02/2018 at [facility] and was on Bipap and admission 06/2018. Denies fever/chills, diaphoresis, N/V/D/C, current BOLANOS or dizziness, syncope, vision changes, neck pain, CP, SOB, orthopnea, palpitations , cough, sore throat, choking, otalgia, rhinorrhea, abdominal pain, paresthesias , weakness, extremity weakness, extremity edema, rashes, urinary symptoms. Allergies Allergy/AdvReac Type Severity Reaction Status Date / Time Bactrim Allergy Unknown HIVES Verified 11/29/17 22:58 sulfamethoxazole Allergy Unknown HIVES Verified 09/10/18 16:58 trimethoprim Allergy Unknown HIVES Verified 09/10/18 16:58 Home Medications Home Medications Medication Instructions Recorded Confirmed Type acetazolamide 500 mg PO TID 05/20/18 09/10/18 History albuterol sulfate 2 puff INHALATION Q6H PRN 05/20/18 09/10/18 History albuterol sulfate 2.5 mg INHALATION Q4H PRN 05/20/18 09/10/18 History erenumab-aooe [Aimovig 1 dose SUBCUT UD 05/20/18 09/10/18 History Autoinjector] meclizine 25 mg PO TID PRN 05/20/18 09/10/18 History multivitamin 1 tab PO QAM 05/20/18 09/10/18 History rizatriptan [Maxalt] 10 mg PO UD PRN 05/20/18 09/10/18 History tiotropium bromide [Spiriva 2 puff INHALATION BID 05/20/18 09/10/18 History Respimat] topiramate 100 mg PO BID 05/20/18 09/10/18 History budesonide-formoterol 2 puff INHALATION BID 07/06/18 09/10/18 History fluticasone [Flonase Allergy 2 spray INTRANASAL DAILY PRN 07/06/18 09/10/18 History Relief] montelukast [Singulair] 10 mg PO DAILY 07/06/18 09/10/18 History promethazine 25 mg PO Q6H PRN #10 tab 08/28/18 09/10/18 Rx xjiifwfzwi-swrdzozoxp-gle-cod 1 cap PO Q4H PRN 09/10/18 09/10/18 History Past Med/Surg History Medical History Migraines (Chronic) Idiopathic intracranial hypertension (Chronic) Iron deficiency anemia (Chronic) GERD (gastroesophageal reflux disease) (Chronic) Asthma, moderate persistent (Chronic) Asthma (Chronic) History of migraine (Chronic) Surgical History History of Amadou fundoplication (Resolved) X 2- History of bronchoscopy (Resolved) History of section (Resolved) X 2 History of dilatation and curettage (Resolved) History of esophagogastroduodenoscopy (EGD) (Resolved) Family History Family/Other Family history of diabetes mellitus Social History Current Living Situation: Spouse and Family Other Information That Helps Us Care for You: No Feels Safe at Home: Yes Safety Concerns: Feels Safe At This Time Smoking Status: Never smoker Do You Dip or Chew Tobacco: No Hx Alcohol Use: No Hx Substance Use: No Beliefs That Will Affect Care: None Preferred Language: [place]an Communication Ability: Effective Thermoscrew Operator Required: No Review of Systems All systems reviewed & are unremarkable except as noted in HPI & below Physical Exam 2 Vital Signs (Past 24 Hours): Last Vital Signs Temp 36.9 C 09/10/18 16:01 Pulse 88 09/10/18 17:52 Resp 22 09/10/18 17:52 BP 121/81 09/10/18 17:52 Pulse Ox 94 09/10/18 17:52 Physical Exam: General: no acute distress, WDWN Head: normocephalic, atraumatic Eyes: conjunctiva non-injected, anicteric ENT: normal inspection external ears, nose, mucous membranes moist Neck: supple, trachea midline Lungs: R:22, no current retractions or accessory muscle use, Pulse ox: 94% on RA , +auditory wheezing with speaking a sentence, +diminished with wheezing throughout CV: RRR, no murmur, no pretibial edema Abd: normal BS, soft, non-tender Ext: no cyanosis, no calf tenderness Neuro: A&O x 3, no focal deficits noted, normal affect Skin: warm, dry Results & Data Laboratory Results Short CBC 09/10/18 Range/Units 16:36 WBC 9.46 (4.8-10.8) K/uL Hgb 13.2 (12.0-16.0) g/dL Hct 39.2 (37-47) % Plt Count 319 (130-400) K/uL BMP 09/10/18 16:36 Sodium 140 Potassium 3.3 L Chloride 107 Carbon Dioxide 23 BUN 10 Creatinine 1.06 Glucose 96 Calcium 9.3 Cardiac Enzymes 02/01/19 Range/Units 16:36 Troponin I < 0.015 (0-0.045) ng/ml Liver Function 09/10/18 Range/Units 16:36 Total Bilirubin 0.2 (0.2-1) mg/dl AST 12 L (15-37) U/L ALT 19 (12-78) U/L Alkaline Phosphatase 50 (45-117) U/L Albumin 3.6 (3.4-5.0) gm/dl Supervising Physician Co-Signing Physician Notes IM ATTENDING : Patient seen and examined. History obtained from patient and records. Preceding documentation by Ms. Michela Unger PA-C reviewed. FINAL ASSESSMENT AND PLAN as follows : Asthma exacerbation Severe persistent at baseline Current exacerbation precipitated by cold weather GERD possibly contributory, hx surgery, PPI noncompliance (despite GI/Pulmo) recommendations Current insurance not covering Xolair Rx Some improvement after initial intervention at the ER Idiopathic intracranial hypertension on Diamox Rx Hypokalemia secondary to diuretic Rx OBS F Medrol Dosepak Nebs RTC PPI daily Pulmonary consult RE asthma exacerbation Outpatient [facility] Allergology follow-up visit for severe persistent asthma, facilitation of Xolair Rx as per boiler mechanic's recommendation from last outpatient visit last month. Replace potassium, daily potassium supplement while on diuretic Rx DVT prophylaxis. Lovenox subcu Full code
[2018-09-10] MEDS ORDERED: POTASSIUM CHLORIDE 20 MEQ TABCR PO STA (19:54)
[2018-09-10 20:02] LABS: Magnesium 1.9 mg/dl (1.8-2.4)
[2018-09-10] MEDS ORDERED: XOPENEX/ATROVENT 1.25mg/0.5MG NEB COMBO NEB SCH (22:28)
[2018-09-10] MEDS ORDERED: PROCHLORPERAZINE 5 MG in SYRINGE 4 ML IV PRN (22:28)
[2018-09-10] MEDS ORDERED: POTASSIUM CHLORIDE 20 MEQ TABCR PO ONE (22:28)
[2018-09-10] MEDS ORDERED: LACTATED RINGER'S 1,000 ML IV ONE (22:28)
[2018-09-10] MEDS ORDERED: ACETAMINOPHEN 325 MG TAB PO PRN (22:28)
[2018-09-10] MEDS ORDERED: MECLIZINE HCL 25 MG TAB PO PRN (22:28)
[2018-09-10] MEDS ORDERED: LEVALBUTEROL 1.25MG/0.5ML NEB INH SCH (22:28)
[2018-09-10] MEDS ORDERED: IPRATROPIUM BROMIDE NEB SOLN 0.02% 2.5 ML VIAL INH SCH (22:28)
[2018-09-10] MEDS ORDERED: PANTOprazole 40 MG TAB PO SCH (23:30)
[2018-09-11] MEDS ORDERED: PANTOprazole 40 MG in SYRINGE 0 ML IV ONE (00:15)
[2018-09-11] MEDS ORDERED: LEVALBUTEROL 1.25MG/0.5ML NEB NEB SCH (03:00)
[2018-09-11] MEDS ORDERED: XOPENEX/ATROVENT 1.25mg/0.5MG NEB COMBO NEB SCH (03:00)
[2018-09-11] MEDS: IPRATROPIUM BROMIDE NEB SOLN 0.02% 2.5 ML VIAL INH SCH ×6 (03:05→22:36)
[2018-09-11] MEDS: LEVALBUTEROL 1.25MG/0.5ML NEB INH SCH ×6 (03:05→22:38)
[2018-09-11 06:13] LABS: Hematocrit (blood only) 38.3 % (37-47); Hemoglobin 12.8 g/dL (12.0-16.0); Immature Granulocytes # (auto) 0.04 K/uL (0.00-0.02); Immature Granulocytes % (auto) 0.3 %; Lymphocytes # (auto) 1.05 K/uL (1.2-3.4); Lymphocytes % (auto) 7.2 %; Mean Corpuscular Hgb Conc 33.4 g/dL (32-36); Mean Corpuscular Volume 83.1 fL (80-100); Mean Platelet Volume 9.9 fL (7.4-10.4); Monocytes # (auto) 0.32 K/uL (0.11-0.59); Monocytes % (auto) 2.2 %; Neutrophils % (auto) 90.3 %; Platelet Count 323 K/uL (130-400); RDW Coefficient of Variation 15.5 % (11.5-14.5); Red Blood Count 4.61 M/uL (4.2-5.4); White Blood Count 14.61 K/uL (4.8-10.8)
[2018-09-11 06:53] LABS: BUN Creatinine Ratio 9.7 (10-20); Calcium 9.2 mg/dl (8.5-10.1); Creatinine Clr Calc Pharmacy 98.7 ml/min; Est GFR (African American) 97.6; Est GFR (Non-African American) 84.2; Magnesium 1.9 mg/dl (1.8-2.4); Potassium 4.1 mmol/L (3.5-5.1)
[2018-09-11] MEDS ORDERED: methylPREDNISolone 4 MG TAB PO SCH ×2 (07:00→13:00)
[2018-09-11] MEDS ORDERED: methylPREDNISolone 4 MG TAB, 6 DAY TAPER PO SCH (08:00)
[2018-09-11] MEDS: MULTIVITAMIN TAB PO SCH (08:56)
[2018-09-11] MEDS: acetaZOLAMIDE 500 MG CAPCR PO SCH ×3 (08:56→20:46)
[2018-09-11] MEDS: TOPIRAMATE 100 MG TAB PO SCH ×2 (08:56→20:46)
[2018-09-11] MEDS: MONTELUKAST SODIUM 10 MG TABLET PO SCH (08:56)
[2018-09-11] MEDS: ENOXAPARIN INJ 40 MG/0.4 ML SYR SQ SCH (08:57)
[2018-09-11] MEDS: POTASSIUM CHLORIDE 20 MEQ TABCR PO SCH (09:07)
[2018-09-11] MEDS ORDERED: methylPREDNISolone 40 MG in SYRINGE 0 ML IV ONE (12:00)
--- NOTE | 2018-09-11 13:16 | Hospitalist Progress Note ---
Date of Service September 11, 2018 Assessment & Plan (1) Asthma exacerbation: Hx of Long standing asthma with recurrent exacerbations, s/p bienvenido procedure x 2 Present on admission with worsening SOB and wheezing Received IV solumedrol 125 mg, magnesium and neb in the ER CXR showed no infiltrate Case discussed with pulmonology Will give IV solumedrol 40mg today Then will transition to prednisone 40mg daily Continue neb treament, simbicort and singular Continue monitor closely (2) Hypokalemia: K 4.1 Stable (3) Idiopathic intracranial hypertension: on diamox (4) Migraines: on aimovig, topamax (5) GERD (gastroesophageal reflux disease): Continue PPI Elevated Glucose Due to steroid monitor BMP CODE STATUS FULL CODE Disposition Will discharge home once medically stable Subjective Pt was seen and examined Sitting in bed with no distress Pt said that she has been having uncontrolled asthma for years She said that she used her rescue inhaler on an average 5 times daily She said that she also has multiples neb treatment daily Currently she said that her wheezing improves Denies any chest pain, palpitation, dizziness and fever Physical Exam 2 Vital Signs (Past 24 Hours): Last Vital Signs Temp 37.2 C 09/11/18 07:32 Pulse 71 09/11/18 11:35 Resp 14 09/11/18 11:35 BP 122/70 09/11/18 07:32 Pulse Ox 98 09/11/18 11:35 Physical Exam: General- No acute distress Head- atraumatic Eyes- PERRL, EOMI, ENT- oropharynx clear Neck- supple, no JVD Lungs- No wheezing Heart- regular rhythm; no murmur Abdomen- normal bowel sounds, soft, nontender Extremities- no calf tenderness Neuro- alert, oriented x 3; PERRL, EOMI; no facial palsy; no dysarthria Skin- warm & dry _ (1) Asthma exacerbation Asthma persistence: persistent Asthma severity: moderate Qualified Code(s): J45.41 - Moderate persistent asthma with (acute) exacerbation
--- NOTE | 2018-09-11 14:22 | Consultation Report ---
DATE OF CONSULTATION: 09/11/2018 PULMONARY CONSULTATION TIME: 11:30. REPORT OF CONSULTATION: The patient was seen in room 416. She is a 28-year-old female with a longstanding history of asthma since childhood. She has had more problems since January of 2018. She states she wheezes every day. This is despite being on prednisone most days. She has had increased problems for several days prior to coming to the Emergency Room. She tends to rely on her rapid-acting rescue bronchodilators. By history, she has had excessive usage of nebulizer treatments and/or albuterol inhalers. She is wheezing daily. She is bothered at night time. As noted, she has a history of reflux. She had a Amadou fundoplication done at age 4 months and a second one done age 19. The latter surgery was done at [facility]. The patient has gained a lot of weight, likely in response to regular doses of prednisone. Several years ago, she was given a trial of Xolair, but her insurance ultimately would not pay for it, she states. She does follow up with Dr. Bahena for allergy. She feels much better today. Her wheezing is less. Her coughing is less. She does not bring up hardly any sputum. She has not had any chills, fevers or sweats. She does not feel like she had a cold. The patient relates that she does not know any more what seems to set off her attacks. She states they have made major environmental modifications at home to try and limit her exposure to things. They have gotten rid of any kind of cleaning agents that might be bothersome. She was known to be ALLERGIC TO DUST, MOLDS, POLLEN AND DANDER. She states that the more recent allergy testing has been much less abnormal than prior, but despite that her asthma symptoms have not been better. PAST SURGICAL HISTORY: 1. Amadou fundoplication x2. 2. . 3. D and C. PAST MEDICAL HISTORY: 1. Sinusitis. 2. Pseudotumor cerebri. 3. Anemia. 4. GERD. SOCIAL HISTORY: The patient has never smoked. ALLERGIES: SULFA, DUST, MOLDS, POLLEN AND DANDER. FAMILY HISTORY: Father has asthma. Mother has lupus. Brother has history of lymphoma. REVIEW OF SYSTEMS: The patient states she does not sleep well. She has developed snoring in the past year, probably weight related. Her observes periods of shallow breathing. He will awaken her at times. She does cough during the night. She has fragmented sleep and restless sleep. She admits to having heartburn several nights per week. Despite that, she has not been taking medicines regularly for reflux as had been recommended to her by Dr. Mahoney. She had had a pH study done that was abnormal within the past 6 months. Her appetite has been good. Review of systems is otherwise negative. MEDICATIONS AT HOME: 1. Acetazolamide 500 mg t.i.d. 2. Neb treatments with albuterol p.r.n. 3. Albuterol HFA p.r.n. 4. Budesonide/formoterol two puffs b.i.d. 5. Fdniqwvnkg-fhsndordtimgj-evzlbcsm p.r.n. headache. 6. Fluticasone nasal spray. 7. Meclizine. 8. Montelukast. 9. Promethazine. 10. Maxalt. 11. Tiotropium. 12. Topiramate. PHYSICAL EXAMINATION: GENERAL: The patient is a pleasant 28-year-old female who was cooperative, alert and oriented. She was in no distress at rest. Weight is 86.6 kg with a BMI of 31.8. VITAL SIGNS: Temperature is 37.2. Heart rate 71 per minute. Rhythm regular. Blood pressure 122/70. HEENT: Pupils were reactive to light. Nares revealed turbinate hypertrophy. Mouth exam showed a Mallampati grade 1. NECK: Palpation of the neck reveals no lymph nodes. LUNGS: Auscultation of the lung sagastume revealed wheezes bilaterally on expiration. These are increased with forced vital capacity maneuver. Respiratory rate 14 breaths per minute and not labored. Saturations 98%. There was no accessory muscle use. ABDOMEN: Soft. Bowel sounds were present and were normal. There was no tenderness to palpation, masses or organomegaly. EXTREMITIES: Showed no cyanosis, clubbing or edema. LABORATORY DATA: White count is 14.61, hemoglobin 12.8, platelets 323,000. Differential count today showed zero eos. Yesterday, it was 2.9 eos. This may be suppressed because she is continuously on steroids. D-dimer was normal at 350. Coags are normal. Electrolytes show sodium 138, potassium 4.1, chloride 109, bicarbonate 22. BUN is 9 with a creatinine of 0.93. Blood sugar 154. Flu test was negative. Chest x-ray is clear. She did have an abdominal x-ray 08/28/2018 that showed no free air or evidence of bowel obstruction. She apparently had gone to the ER that day complaining of abdominal pain. IMPRESSION: 1. Status asthmaticus. 2. Possible obstructive sleep apnea. 3. Gastroesophageal reflux disease. 4. Severe persistent asthma. COMMENTS AND RECOMMENDATIONS: The patient is clinically much improved since she came in. I would favor giving her Solu-Medrol today and then changing to prednisone tomorrow. I explained to the patient that the ultimate goal has to be that she has better control with much less steroids. I believe her best opportunity for improvement would be with asthma medicine such as Xolair or Fasenra or other agents of more recent released. I believe that is definitely the direction she should go and she should contact her shovel loader operator about this. I believe she needs reflux treatment on a daily basis. This may be exacerbating her asthma. She may have underlying obstructive sleep apnea. Would suggest a sleep study which could even be done at home. This can be arranged through Hue Vargas PA-C, who sees her in the pulmonary office. Hopefully, if the patient continues to improve, she may be acceptable for discharge tomorrow.
[2018-09-11] MEDS: BUDESONIDE/FORMOTEROL FUMARATE 160/4.5 60 PUFFS/INHALER INH SCH (20:47)
[2018-09-11] MEDS: PANTOprazole 40 MG TAB PO SCH (20:47)
[2018-09-12] MEDS: IPRATROPIUM BROMIDE NEB SOLN 0.02% 2.5 ML VIAL INH SCH ×6 (03:22→22:55)
[2018-09-12] MEDS: LEVALBUTEROL 1.25MG/0.5ML NEB INH SCH ×6 (03:22→22:55)
[2018-09-12] MEDS ORDERED: methylPREDNISolone 4 MG TAB PO SCH ×2 (07:00→21:00)
[2018-09-12] MEDS: TOPIRAMATE 100 MG TAB PO SCH (08:03)
[2018-09-12] MEDS: MULTIVITAMIN TAB PO SCH (08:03)
[2018-09-12] MEDS: MONTELUKAST SODIUM 10 MG TABLET PO SCH (08:04)
[2018-09-12] MEDS: POTASSIUM CHLORIDE 20 MEQ TABCR PO SCH (08:04)
[2018-09-12] MEDS: predniSONE 20 MG TAB PO SCH (08:04)
[2018-09-12] MEDS: ENOXAPARIN INJ 40 MG/0.4 ML SYR SQ SCH (08:04)
[2018-09-12] MEDS: acetaZOLAMIDE 500 MG CAPCR PO SCH (08:04)
[2018-09-12] MEDS: BUDESONIDE/FORMOTEROL FUMARATE 160/4.5 60 PUFFS/INHALER INH SCH ×2 (08:05→20:24)
[2018-09-12 11:17] LABS: Pregnancy Test, Urine Positive (Negative)
[2018-09-12 13:12] LABS: Pregnancy Test, Serum Positive (Negative)
[2018-09-12] MEDS ORDERED: DOCUSATE SODIUM 100 MG CAP PO ONE (16:02)
--- NOTE | 2018-09-12 17:04 | Progress Note ---
DATE: 09/12/2018 PULMONARY PROGRESS NOTE TIME: 3:55 p.m. SUBJECTIVE: The patient is feeling much less short of breath. She feels that her wheezing has improved a lot. She has had no acute attacks. OBJECTIVE: GENERAL: The patient appeared comfortable. VITAL SIGNS: Temperature is 37.1. CARDIAC: Rate is 100 per minute at the time of my exam. Blood pressure most recently was 93/55. This is the lowest she has had since admission. LUNGS: Lung sagastume revealed faint end expiratory wheeze. Respiratory rate 16. Saturation 96% on room air. She did have an overnight pulse oximetry study done. The lowest saturation recorded was 81%, but this was artifact. The lowest true saturation was 88% and there was very little time less than 90%. The basal saturation was 94%. There is a test now back that is positive. The patient had assured me yesterday that she was not . She states she did have a test done recently through the ER and it was negative. The information about the test was conveyed to me by Dr. Lees. IMPRESSION: 1. Status asthmaticus -- much improved. 2. Possible obstructive sleep apnea. 3. Gastroesophageal reflux disease. 4. Underlying severe persistent asthma. COMMENTS AND RECOMMENDATIONS: The patient appears that she will be able to be discharged soon. She is on a number of medications, which may or may not be ideal during . Ideally, I do not believe the montelukast should be continued during . She is also on Spiriva regularly. This needs to be checked to determine if this medicine can or should be given during . The patient is concerned about how she will tolerate the as she has had some issues with each of her other . She states during third trimester, her breathing got worse. I did encourage her to get at least a home sleep study done to determine if she may have sleep apnea in light of her weight gain and snoring.
--- NOTE | 2018-09-12 18:01 | Hospitalist Progress Note ---
Date of Service September 12, 2018 Assessment & Plan (1) Asthma exacerbation: Hx of Long standing asthma with recurrent exacerbations, s/p bienvenido procedure x 2 Present on admission with worsening SOB and wheezing Received IV solumedrol 125 mg, magnesium and neb in the ER CXR showed no infiltrate Case discussed with pulmonology Continue prednisone daily for now Continue neb treament, Symbicort Will hold spiriva and singular Continue monitor closely Follow up with pulmonology in within 1 week (2) : Urine positive Last menstruation was on 08/05/18 Serum B-HCG positive Will consult OBGYN for med that with contraindication in (3) Hypokalemia: K Stable (4) Idiopathic intracranial hypertension: Will hold diamox due to (5) Migraines: Will hold aimovig, topamax due to (6) GERD (gastroesophageal reflux disease): Continue PPI Elevated Glucose Due to steroid monitor BMP CODE STATUS FULL CODE Disposition Will discharge home once medically stable Subjective Pt was seen and examined Sitting in bed with no distress Pt said that his breathing feels much better She said that she is getting neb the treatment round the clot We Just found out she is after urine pregancy came back positive Denies any symptoms of Physical Exam 2 Vital Signs (Past 24 Hours): Last Vital Signs Temp 37.1 C 09/12/18 15:34 Pulse 93 H 09/12/18 15:34 Resp 16 09/12/18 15:34 BP 93/55 L 09/12/18 15:34 Pulse Ox 96 09/12/18 15:34 Physical Exam: General- No acute distress Head- atraumatic Eyes- PERRL, EOMI, ENT- oropharynx clear Neck- supple, no JVD Lungs- faint wheezing Heart- regular rhythm; no murmur Abdomen- normal bowel sounds, soft, nontender Extremities- no calf tenderness Neuro- alert, oriented x 3; PERRL, EOMI; no facial palsy; no dysarthria Skin- warm & dry _ (1) Asthma exacerbation Asthma persistence: persistent Asthma severity: moderate Qualified Code(s): J45.41 - Moderate persistent asthma with (acute) exacerbation
--- NOTE | 2018-09-12 19:46 | OB/GYN Consultation ---
Date of Consultation September 12, 2018 Assessment & Plan (1) Asthma affecting in first trimester: 28 yo female with LMP of 08/05/18, making her 5.3 wks, very early with BHCG quant of 731, would not expect any IUP by US yet Recommended to repeat BHCG q 48 hours to see increase pattern ( should double q 48 hours) RECOMMENDATIONS: 1. Recommend baseline peak flow measurement be obtained for all asthmatic patients during with the onset of their OB care. 2. Inhaled corticosteroids are the mainstay of therapy for all patients except those with intermittent asthma. If patients are routinely requiring rescue inhaler (such as Albuterol, Ventolin, Proair, Atrovent, or Proventil) use more than twice weekly, we recommend adding an inhaled steroid (such as Pulmicort or Flovent) to asthma management plan. If patients are routinely requiring rescue inhaler use daily, we recommend adding a combined inhaled steroid/long-acting beta-agonist (such as Advair or Symbicort). 3. Instructed patient to discuss with her PCP any exacerbation of her asthma symptoms indicating that she is no longer well controlled. Recommend continued follow up and management with previously established primary care provider and resizer operator. 4. Recommend for patients with moderate or severe persistent asthma to have Maternal Medicine ultrasound for anatomy at 19-20 weeks and for growth at 32 weeks. 5. Typically patients do not need stress dose steroids as long as they continue their usual dose perioperatively and as long as they do not have primary renal failure or other problems with the pituitary axis. For the remainder of patients , we recommend stress dose steroids in labor if they have required systemic corticosteroid treatment of greater than 20mg/day for 3 weeks or longer within the previous 4 weeks She was on Topamax but she states she stopped Recommend to avoid Topamax during I will notify my office to f/u on serila BHCG levels and schedule a new OB appointment Thank you History of Present Illness Reason for Consultation: test + Attending Physician: Aaron Lees MD History of Present Illness Patient is a 28 yo female with LMP of 08/05/18, making her 5.3 wks She was dmitted for asthma attack and was found to have + test She states she was not planning and did not know she was She recently saw Dr. Gallegos at [facility] gin operator and asked for lomid ovulation inductioon. She was rescribed by him 100 mg Clomid but she states she never used it. She wanted to give hersefl a break from trying to get She is known to me from last in 2017 when she had severe asthma attack in 3rd trimester and transferred to by hospitalist in [facility] She was delivered via repeat Csection at [facility] Now she denies pelvic pain/ cramping or spotting BHCG is 731, early , would not expect any US findings Recommended to repeat bHCG quant q 48 hours, I placed an order for tomorow am She agreed Allergies Allergy/AdvReac Type Severity Reaction Status Date / Time Bactrim Allergy Unknown HIVES Verified 11/29/17 22:58 sulfamethoxazole Allergy Unknown HIVES Verified 09/10/18 16:58 trimethoprim Allergy Unknown HIVES Verified 09/10/18 16:58 Home Medications Home Medications Medication Instructions Recorded Confirmed Type acetazolamide 500 mg PO TID 05/20/18 09/10/18 History albuterol sulfate 2 puff INHALATION Q6H PRN 05/20/18 09/10/18 History albuterol sulfate 2.5 mg INHALATION Q4H PRN 05/20/18 09/10/18 History erenumab-aooe [Aimovig 1 dose SUBCUT UD 05/20/18 09/10/18 History Autoinjector] meclizine 25 mg PO TID PRN 05/20/18 09/10/18 History multivitamin 1 tab PO QAM 05/20/18 09/10/18 History rizatriptan [Maxalt] 10 mg PO UD PRN 05/20/18 09/10/18 History tiotropium bromide [Spiriva 2 puff INHALATION BID 05/20/18 09/10/18 History Respimat] topiramate 100 mg PO BID 05/20/18 09/10/18 History budesonide-formoterol 2 puff INHALATION BID 07/06/18 09/10/18 History fluticasone [Flonase Allergy 2 spray INTRANASAL DAILY PRN 07/06/18 09/10/18 History Relief] montelukast [Singulair] 10 mg PO DAILY 07/06/18 09/10/18 History promethazine 25 mg PO Q6H PRN #10 tab 08/28/18 09/10/18 Rx wjjddqloka-arjkvyesqg-jwb-cod 1 cap PO Q4H PRN 09/10/18 09/10/18 History Patient History Medical History Migraines (Chronic) Idiopathic intracranial hypertension (Chronic) Iron deficiency anemia (Chronic) GERD (gastroesophageal reflux disease) (Chronic) Asthma, moderate persistent (Chronic) Asthma (Chronic) History of migraine (Chronic) Surgical History History of Amadou fundoplication (Resolved) X 2- History of bronchoscopy (Resolved) History of section (Resolved) X 2 History of dilatation and curettage (Resolved) History of esophagogastroduodenoscopy (EGD) (Resolved) Family History Family/Other Family history of diabetes mellitus Social History Current Living Situation: Spouse and Family Other Information That Helps Us Care for You: No Feels Safe at Home: Yes Safety Concerns: Feels Safe At This Time Smoking Status: Never smoker Do You Dip or Chew Tobacco: No Hx Alcohol Use: No Hx Substance Use: No Beliefs That Will Affect Care: None Preferred Language: Pakistani Communication Ability: Effective Photographer Scientific Required: No Physical Exam 2 Vital Signs (Past 24 Hours): Last Vital Signs Temp 37.1 C 09/12/18 15:34 Pulse 100 H 09/12/18 19:04 Resp 18 09/12/18 19:04 BP 93/55 L 09/12/18 15:34 Pulse Ox 96 09/12/18 19:04 Results & Data Laboratory Results Lab Results 09/10/18 09/10/18 09/10/18 Range/Units 16:25 16:36 16:36 WBC 9.46 (4.8-10.8) K/uL RBC 4.70 (4.2-5.4) M/uL Hgb 13.2 (12.0-16.0) g/dL Hct 39.2 (37-47) % MCV 83.4 (80-100) fL MCH 28.1 (25-34) pg MCHC 33.7 (32-36) g/dL RDW Std Deviation 46.7 H (36.4-46.3) fL RDW Coeff of Camryn 15.2 H (11.5-14.5) % Plt Count 319 (130-400) K/uL MPV 9.8 (7.4-10.4) fL Immature Gran % (Auto) 0.2 % Neut % (Auto) 61.8 % Lymph % (Auto) 28.9 % Trigg % (Auto) 5.7 % Eos % (Auto) 2.9 % Baso % (Auto) 0.5 % Immature Gran # (Auto) 0.02 (0.00-0.02) K/uL Neut # (Auto) 5.85 (1.4-6.5) K/uL Lymph # (Auto) 2.73 (1.2-3.4) K/uL Trigg # (Auto) 0.54 (0.11-0.59) K/uL Eos # (Auto) 0.27 (0-0.5) K/uL Baso # (Auto) 0.05 (0-0.2) K/uL PT 10.5 (9.0-12.0) Seconds INR 1.0 (0.9-1.1) APTT 27.1 (21.0-31.0) Seconds PTT Ratio 1.0 D-Dimer 350 (0-500) ug/L FEU VBG pH (7.36-7.41) VBG pCO2 (38-50) mmHg VBG pO2 mmHg VBG HCO3 mmol/L VBG O2 Saturation % VBG Base Excess mEq/L Barometric Pressure mm/Hg Sodium (136-145) mmol/L Potassium (3.5-5.1) mmol/L Chloride (98-107) mmol/L Carbon Dioxide (21-32) mmol/L Anion Gap (3-11) BUN (7-18) mg/dl Creatinine (0.6-1.2) mg/dl Est Cr Clr Drug Dosing ml/min Est GFR ( Amer) Est GFR (Non-Af Amer) BUN/Creatinine Ratio (10-20) Glucose (70-99) mg/dl Calcium (8.5-10.1) mg/dl Magnesium (1.8-2.4) mg/dl Total Bilirubin (0.2-1) mg/dl AST (15-37) U/L ALT (12-78) U/L Alkaline Phosphatase (45-117) U/L Troponin I (0-0.045) ng/ml Total Protein (6.4-8.2) gm/dl Albumin (3.4-5.0) gm/dl Globulin (2.5-4.0) gm/dl Albumin/Globulin Ratio (0.9-2) HCG, Qual (Negative) HCG, Quant mIU/ml Urine Test (Negative) Influenza Type A (PCR) Neg for Influ A (Neg) Influenza Type B (PCR) Neg for Influ B (Neg) 09/10/18 09/10/18 09/11/18 Range/Units 16:36 17:34 05:49 WBC 14.61 H (4.8-10.8) K/uL RBC 4.61 (4.2-5.4) M/uL Hgb 12.8 (12.0-16.0) g/dL Hct 38.3 (37-47) % MCV 83.1 (80-100) fL MCH 27.8 (25-34) pg MCHC 33.4 (32-36) g/dL RDW Std Deviation 47.0 H (36.4-46.3) fL RDW Coeff of Camryn 15.5 H (11.5-14.5) % Plt Count 323 (130-400) K/uL MPV 9.9 (7.4-10.4) fL Immature Gran % (Auto) 0.3 % Neut % (Auto) 90.3 % Lymph % (Auto) 7.2 % Trigg % (Auto) 2.2 % Eos % (Auto) 0.0 % Baso % (Auto) 0.0 % Immature Gran # (Auto) 0.04 H (0.00-0.02) K/uL Neut # (Auto) 13.20 H (1.4-6.5) K/uL Lymph # (Auto) 1.05 L (1.2-3.4) K/uL Trigg # (Auto) 0.32 (0.11-0.59) K/uL Eos # (Auto) 0.00 (0-0.5) K/uL Baso # (Auto) 0.00 (0-0.2) K/uL PT (9.0-12.0) Seconds INR (0.9-1.1) APTT (21.0-31.0) Seconds PTT Ratio D-Dimer (0-500) ug/L FEU VBG pH 7.39 (7.36-7.41) VBG pCO2 44 (38-50) mmHg VBG pO2 22 mmHg VBG HCO3 26 mmol/L VBG O2 Saturation < 60.0 % VBG Base Excess 0.7 mEq/L Barometric Pressure 738.7 mm/Hg Sodium 140 (136-145) mmol/L Potassium 3.3 L (3.5-5.1) mmol/L Chloride 107 (98-107) mmol/L Carbon Dioxide 23 (21-32) mmol/L Anion Gap 9.0 (3-11) BUN 10 (7-18) mg/dl Creatinine 1.06 (0.6-1.2) mg/dl Est Cr Clr Drug Dosing 86.6 ml/min Est GFR ( Amer) 83.3 Est GFR (Non-Af Amer) 71.9 BUN/Creatinine Ratio 9.0 L (10-20) Glucose 96 (70-99) mg/dl Calcium 9.3 (8.5-10.1) mg/dl Magnesium 1.9 (1.8-2.4) mg/dl Total Bilirubin 0.2 (0.2-1) mg/dl AST 12 L (15-37) U/L ALT 19 (12-78) U/L Alkaline Phosphatase 50 (45-117) U/L Troponin I < 0.015 (0-0.045) ng/ml Total Protein 7.4 (6.4-8.2) gm/dl Albumin 3.6 (3.4-5.0) gm/dl Globulin 3.8 (2.5-4.0) gm/dl Albumin/Globulin Ratio 1.0 (0.9-2) HCG, Qual (Negative) HCG, Quant mIU/ml Urine Test (Negative) Influenza Type A (PCR) (Neg) Influenza Type B (PCR) (Neg) 09/11/18 09/12/18 09/12/18 Range/Units 05:49 08:00 12:48 WBC (4.8-10.8) K/uL RBC (4.2-5.4) M/uL Hgb (12.0-16.0) g/dL Hct (37-47) % MCV (80-100) fL MCH (25-34) pg MCHC (32-36) g/dL RDW Std Deviation (36.4-46.3) fL RDW Coeff of Camryn (11.5-14.5) % Plt Count (130-400) K/uL MPV (7.4-10.4) fL Immature Gran % (Auto) % Neut % (Auto) % Lymph % (Auto) % Trigg % (Auto) % Eos % (Auto) % Baso % (Auto) % Immature Gran # (Auto) (0.00-0.02) K/uL Neut # (Auto) (1.4-6.5) K/uL Lymph # (Auto) (1.2-3.4) K/uL Trigg # (Auto) (0.11-0.59) K/uL Eos # (Auto) (0-0.5) K/uL Baso # (Auto) (0-0.2) K/uL PT (9.0-12.0) Seconds INR (0.9-1.1) APTT (21.0-31.0) Seconds PTT Ratio D-Dimer (0-500) ug/L FEU VBG pH (7.36-7.41) VBG pCO2 (38-50) mmHg VBG pO2 mmHg VBG HCO3 mmol/L VBG O2 Saturation % VBG Base Excess mEq/L Barometric Pressure mm/Hg Sodium 138 (136-145) mmol/L Potassium 4.1 D (3.5-5.1) mmol/L Chloride 109 H (98-107) mmol/L Carbon Dioxide 22 (21-32) mmol/L Anion Gap 8.0 (3-11) BUN 9 (7-18) mg/dl Creatinine 0.93 (0.6-1.2) mg/dl Est Cr Clr Drug Dosing 98.7 ml/min Est GFR ( Amer) 97.6 Est GFR (Non-Af Amer) 84.2 BUN/Creatinine Ratio 9.7 L (10-20) Glucose 154 H (70-99) mg/dl Calcium 9.2 (8.5-10.1) mg/dl Magnesium 1.9 (1.8-2.4) mg/dl Total Bilirubin (0.2-1) mg/dl AST (15-37) U/L ALT (12-78) U/L Alkaline Phosphatase (45-117) U/L Troponin I (0-0.045) ng/ml Total Protein (6.4-8.2) gm/dl Albumin (3.4-5.0) gm/dl Globulin (2.5-4.0) gm/dl Albumin/Globulin Ratio (0.9-2) HCG, Qual (Negative) HCG, Quant 731 mIU/ml Urine Test Positive (Negative) Influenza Type A (PCR) (Neg) Influenza Type B (PCR) (Neg) 09/12/18 Range/Units 12:48 WBC (4.8-10.8) K/uL RBC (4.2-5.4) M/uL Hgb (12.0-16.0) g/dL Hct (37-47) % MCV (80-100) fL MCH (25-34) pg MCHC (32-36) g/dL RDW Std Deviation (36.4-46.3) fL RDW Coeff of Camryn (11.5-14.5) % Plt Count (130-400) K/uL MPV (7.4-10.4) fL Immature Gran % (Auto) % Neut % (Auto) % Lymph % (Auto) % Trigg % (Auto) % Eos % (Auto) % Baso % (Auto) % Immature Gran # (Auto) (0.00-0.02) K/uL Neut # (Auto) (1.4-6.5) K/uL Lymph # (Auto) (1.2-3.4) K/uL Trigg # (Auto) (0.11-0.59) K/uL Eos # (Auto) (0-0.5) K/uL Baso # (Auto) (0-0.2) K/uL PT (9.0-12.0) Seconds INR (0.9-1.1) APTT (21.0-31.0) Seconds PTT Ratio D-Dimer (0-500) ug/L FEU VBG pH (7.36-7.41) VBG pCO2 (38-50) mmHg VBG pO2 mmHg VBG HCO3 mmol/L VBG O2 Saturation % VBG Base Excess mEq/L Barometric Pressure mm/Hg Sodium (136-145) mmol/L Potassium (3.5-5.1) mmol/L Chloride (98-107) mmol/L Carbon Dioxide (21-32) mmol/L Anion Gap (3-11) BUN (7-18) mg/dl Creatinine (0.6-1.2) mg/dl Est Cr Clr Drug Dosing ml/min Est GFR ( Amer) Est GFR (Non-Af Amer) BUN/Creatinine Ratio (10-20) Glucose (70-99) mg/dl Calcium (8.5-10.1) mg/dl Magnesium (1.8-2.4) mg/dl Total Bilirubin (0.2-1) mg/dl AST (15-37) U/L ALT (12-78) U/L Alkaline Phosphatase (45-117) U/L Troponin I (0-0.045) ng/ml Total Protein (6.4-8.2) gm/dl Albumin (3.4-5.0) gm/dl Globulin (2.5-4.0) gm/dl Albumin/Globulin Ratio (0.9-2) HCG, Qual Positive (Negative) HCG, Quant mIU/ml Urine Test (Negative) Influenza Type A (PCR) (Neg) Influenza Type B (PCR) (Neg)
[2018-09-12] MEDS: PANTOprazole 40 MG TAB PO SCH (20:24)
[2018-09-13] MEDS: IPRATROPIUM BROMIDE NEB SOLN 0.02% 2.5 ML VIAL INH SCH ×3 (04:30→11:08)
[2018-09-13] MEDS: LEVALBUTEROL 1.25MG/0.5ML NEB INH SCH ×3 (04:30→11:08)
[2018-09-13] MEDS ORDERED: methylPREDNISolone 4 MG TAB PO SCH (07:00)
[2018-09-13] MEDS: predniSONE 20 MG TAB PO SCH (08:41)
[2018-09-13] MEDS: MULTIVITAMIN TAB PO SCH (08:41)
[2018-09-13] MEDS: POTASSIUM CHLORIDE 20 MEQ TABCR PO SCH (08:41)
[2018-09-13] MEDS: BUDESONIDE/FORMOTEROL FUMARATE 160/4.5 60 PUFFS/INHALER INH SCH (08:42)
--- NOTE | 2018-09-13 11:44 | Hospitalist Progress Note ---
Date of Service September 13, 2018 Assessment & Plan (1) Asthma exacerbation: Hx of Long standing asthma with recurrent exacerbations, s/p bienvenido procedure x 2 Present on admission with worsening SOB and wheezing Received IV solumedrol 125 mg, magnesium and neb in the ER CXR showed no infiltrate Case discussed with pulmonology Continue prednisone daily for now Continue neb treament, Symbicort Will hold spiriva for now Pt said that she was on singular during her last pregancy because she needs the singular to maintain her asthma under control Follow up with pulmonology within 1 week Overnight pulse oximetry done and pt did not require oxygen supplement Will discharge on Prednisone 40mg short course duration Consider outpatient sleep study (2) : Urine positive Last menstruation was on 08/05/18 Serum B-HCG positive B-HCG quantitative 731 yesterday, then 812 today Will repeat B-HCG in 48Hr Follow up with OBGYN as an outpatient (3) Hypokalemia: K Stable (4) Idiopathic intracranial hypertension: Continue holding diamox due to (5) Migraines: Continue holding aimovig, topamax due to (6) GERD (gastroesophageal reflux disease): Continue PPI Elevated Glucose Due to steroid monitor BMP CODE STATUS FULL CODE Disposition Discharge home today Follow with your new primary care provider Dr. Jorge on 09/17/18 @ 10:15 AM Follow up with pulmonology with Hue MONSIVAIS within 1 week Follow up with OBGYN Check B-HCG in 48 hr Subjective Pt was seen and examined Sitting in bed with no distress Pt said that her breathing is much better She said that she walked in the hallway today with no distress She saw the OBGYN yesteray for the She saturates well on RA Denies any chest pain, palpitation, dizziness and SOB Physical Exam 2 Vital Signs (Past 24 Hours): Last Vital Signs Temp 36.6 C 09/13/18 07:25 Pulse 89 09/13/18 11:08 Resp 16 09/13/18 11:08 BP 119/66 09/13/18 07:25 Pulse Ox 97 09/13/18 11:08 Physical Exam: General- No acute distress Head- atraumatic Eyes- PERRL, EOMI, ENT- oropharynx clear Neck- supple, no JVD Lungs- very faint wheezing Heart- regular rhythm; no murmur Abdomen- normal bowel sounds, soft, nontender Extremities- no calf tenderness Neuro- alert, oriented x 3; PERRL, EOMI; no facial palsy; no dysarthria Skin- warm & dry _ (1) Asthma exacerbation Asthma persistence: persistent Asthma severity: moderate Qualified Code(s): J45.41 - Moderate persistent asthma with (acute) exacerbation
[2018-09-14] MEDS ORDERED: methylPREDNISolone 4 MG TAB PO SCH (07:00)
--- NOTE | 2018-09-14 08:44 | Discharge Summary ---
Date of Service September 13, 2018 Admission HPI Per Admitting Provider Pt is 28 y/o F with PMH asthma with long history of exacerbations, allergic rhinitis, GERD, demyelinating disease, idiopathic intracranial HTN, iron deficiency anemia, migraine BOLANOS's presented to ER with c/o increased SOB and wheezing. Follows with Hue Nayak/Dr Bahena. Reports has been on steroid taper once a month since 01/2018. Last steroids approx 2.5 weeks ago. Reports daily asthma attacks and has chronic daily wheezing with some days worse than others. Uses albuterol nebulizer 2-3 times a day and albuterol inhaler a couple of times a day, and uses duoneb for more severe wheezing. Reports compliance with Spiriva and Symbicort inhalers. Hx Amadou fundoplasty x 2 with reported improvement in asthma symptoms. Takes tums approx twice a month for reflux symptoms. Hx hospitalization 02/2018 at [facility] and was on Bipap and admission 06/2018. Denies fever/chills, diaphoresis, N/V/D/C, current BOLANOS or dizziness, syncope, vision changes, neck pain, CP, SOB, orthopnea, palpitations , cough, sore throat, choking, otalgia, rhinorrhea, abdominal pain, paresthesias , weakness, extremity weakness, extremity edema, rashes, urinary symptoms. Admission Exam Per Admitting Provider General: no acute distress, WDWN Head: normocephalic, atraumatic Eyes: conjunctiva non-injected, anicteric ENT: normal inspection external ears, nose, mucous membranes moist Neck: supple, trachea midline Lungs: R:22, no current retractions or accessory muscle use, Pulse ox: 94% on RA , +auditory wheezing with speaking a sentence, +diminished with wheezing throughout CV: RRR, no murmur, no pretibial edema Abd: normal BS, soft, non-tender Ext: no cyanosis, no calf tenderness Neuro: A&O x 3, no focal deficits noted, normal affect Skin: warm, dry Principal Diagnosis Asthma exacerbation Discharge Exam General- No acute distress Head- atraumatic Eyes- PERRL, EOMI, ENT- oropharynx clear Neck- supple, no JVD Lungs- very faint wheezing Heart- regular rhythm; no murmur Abdomen- normal bowel sounds, soft, nontender Extremities- no calf tenderness Neuro- alert, oriented x 3; PERRL, EOMI; no facial palsy; no dysarthria Skin- warm & dry Discharge Data Allergies Allergy/AdvReac Type Severity Reaction Status Date / Time Bactrim Allergy Unknown HIVES Verified 11/29/17 22:58 sulfamethoxazole Allergy Unknown HIVES Verified 09/10/18 16:58 trimethoprim Allergy Unknown HIVES Verified 09/10/18 16:58 Consultations 09/10/18 18:22 ED Decision to Admit Stat 09/11/18 00:52 Consult Pulmonology Routine 09/12/18 13:38 Consult Obstetrics Routine Ordered Studies XR chest 1V portable CLINICAL HISTORY: Dyspnea dyspnea COMPARISON STUDY: 08/28/2017 FINDINGS: The bones soft tissues and hemidiaphragms are normal. The cardiomediastinal silhouette is normal. The lungs are clear. The pulmonary vasculature is normal. IMPRESSION: Negative chest. The above report was generated using voice recognition software. It may contain grammatical, syntax or spelling errors. Electronically signed by: Francisco Jackson M.D. 09/10/2018 5:05 PM Dictated: 09/10/181704 Transcribed: 09/10/181704 Hospital Course (1) Asthma exacerbation: Hx of Long standing asthma with recurrent exacerbations, s/p amadou procedure x 2 Present on admission with worsening SOB and wheezing Received IV solumedrol 125 mg, magnesium and neb in the ER CXR showed no infiltrate Case discussed with pulmonology Continue prednisone daily for now Continue neb treament, Symbicort Will hold spiriva for now Pt said that she was on singular during her last pregancy because she needs the singular to maintain her asthma under control Follow up with pulmonology within 1 week Overnight pulse oximetry done and pt did not require oxygen supplement Will discharge on Prednisone 40mg short course duration Consider outpatient sleep study (2) : Urine positive Last menstruation was on 08/05/18 Serum B-HCG positive B-HCG quantitative 731 yesterday, then 812 today Will repeat B-HCG in 48Hr Follow up with OBGYN as an outpatient (3) Hypokalemia: K Stable (4) Idiopathic intracranial hypertension: Continue holding diamox due to (5) Migraines: Continue holding aimovig, topamax due to (6) GERD (gastroesophageal reflux disease): Continue PPI Elevated Glucose Due to steroid monitor BMP CODE STATUS FULL CODE Disposition Discharge home today Follow with your new primary care provider Dr. Jorge on 09/17/18 @ 10:15 AM Follow up with pulmonology with Hue MONSIVAIS within 1 week Follow up with OBGYN Check B-HCG in 48 hr Total Time Total Time Spent Total Time Spent (In Minutes): 35 minutes Total Time Includes: Examination of the Patient, Discharge Planning, Medication Reconciliation, Communication With Other Providers and Other Discharge Plan Discharge Items Patient Disposition: Home - Self-Care Reason For Visit: ASTHMA EXACERBATION Discharge Diagnosis: Asthma exacerbation/ Discharge Goals: Decrease discomfort, Improve disease control, Improve function and Increase independence Activity: Resume your previous activity Activity Comment: As tolerated Non-emergency contact: Primary Care Provider, Golf Ball Winder and Script Reader Call non-emergency contact if: you have any medication questions, your symptoms worsen and your temperature is above 101 Follow-up/Referrals: Lynette Jorge [Primary Care Provider] - Diet: Regular Addtl Provider Instructions: Follow with your primary care provider Dr. Jorge on 09/17/18 @ 10:15 AM Follow up with pulmonology with Hue MONSIVAIS Sep 5 @ 1:00PM Follow up with OBGYN Check B-HCG in 48 hour Your marketing information coordinator will tell you if you need to restart the spiriva and singular. Prescriptions: New prednisone 20 mg Tablet 40 mg PO DAILY 5 Days Qty: 10 RF: 0 famotidine [Pepcid] 20 mg tablet 20 mg PO HS Qty: 30 RF: 0 Continue fluticasone [Flonase Allergy Relief] 50 mcg/actuation [place],Suspension 2 spray INTRANASAL DAILY PRN (Reason: allergies) RF: 0 budesonide-formoterol 160-4.5 mcg/actuation Hfa Aerosol Inhaler 2 puff INHALATION BID RF: 0 montelukast [Singulair] 10 mg Tablet 10 mg PO DAILY RF: 0 albuterol sulfate 2.5 mg /3 mL (0.083 %) Solution For Nebulization 2.5 mg INHALATION Q4H PRN (Reason: Wheezing) RF: 0 albuterol sulfate 90 mcg/actuation Hfa Aerosol Inhaler 2 puff INHALATION Q6H PRN (Reason: Wheezing) RF: 0 meclizine 25 mg Tablet 25 mg PO TID PRN (Reason: Dizziness) RF: 0 multivitamin Tablet 1 tab PO QAM RF: 0 promethazine 25 mg tablet 25 mg PO Q6H PRN (Reason: nausea and vomiting) Qty: 10 RF: 0 Discontinued dpletlatvd-sxhzkigmxt-cgu-cod [id number] mg Capsule 1 cap PO Q4H PRN (Reason: Headache) RF: 0 acetazolamide 500 mg Capsule, Extended Release 500 mg PO TID RF: 0 erenumab-aooe [Aimovig Autoinjector] 70 mg/mL Auto-Injector 1 dose subcut UD RF: 0 rizatriptan [Maxalt] 10 mg Tablet 10 mg PO UD PRN (Reason: Pain) RF: 0 topiramate 100 mg Tablet 100 mg PO BID RF: 0 tiotropium bromide [Spiriva Respimat] 2.5 mcg/actuation Mist 2 puff INHALATION BID RF: 0 Stand-Alone Forms: [facility] Discharge Orders: Discharge Order (Routine); Ordered 09/13/18 Ordered By: Aaron Lees Admission Data Admit Date/Time: 09/10/18 21:03 Attending Provider: Aaron Lees Admit Provider: Milan Thurston Primary Care Provider: Lynette Jorge Other Providers: Milan Thurston ; Jose L Gomez ; Leonardo Mejia ; Ciarra Lombardo ; Joshua Murcia Jessica L. ; Milan Gunter ; Mady Bravo ; Perla Pavon ; Darlene Gerardo ; Kristian Bethea ; Brian Savage ; Cosme Lo ; Rene Sethi Service: Medical Other Interventions: Discharge Summary Assessment (RN) Last Done: 09/13/18 14:27 DC Date/Time DO NOT enter until pt leaves facility: 09/13/18 14:39
[2018-09-15] MEDS ORDERED: methylPREDNISolone 4 MG TAB PO SCH (07:00)
[2018-09-16] MEDS ORDERED: methylPREDNISolone 4 MG TAB PO SCH (07:00)
== END 2018-09-13 14:39 | disposition home or self-care (01) ==
LOC: ED 15:52 → 4E 15:52

== ENCOUNTER 2020-12-26 14:35 | Observation (INO) ==
[2020-12-26] MEDS ORDERED: ALBUT/IPRATROP 3MG/0.5MG NEB 3 ML VIAL NEB ONE (15:05)
[2020-12-26] MEDS ORDERED: methylPREDNISolone 125 MG/2 ML VIAL IV STA (15:05)
--- NOTE | 2020-12-26 15:22 | Emergency Department Note ---
Impression & Plan Asthma with acute exacerbation in adult ED Provider Note NAME: HIRAM WADSWORTH AGE: 30 SEX: F : 1990 ARRIVES VIA: Walk-In INFORMANT: Patient, ED PROVIDER(S): Jose L Valiente DO CHIEF COMPLAINT: Difficulty breathing HPI: The patient is a 30-year-old female who is a history of asthma who presented to the emergency department for an evaluation of difficulty breathing. The patient states that she has had ongoing difficulty breathing ever since the last 24 hours. She was seen here last evening with similar complaints. At that time she was treated and able to be discharged to home. The patient states her symptoms began significantly worse over the last couple of hours. She last used a nebulizer treatment 2 hours ago. She was unable to get to the pharmacy to hand picker the steroid prescription she was given so she has had no steroids since yesterday when she was in the emergency department. She denies having any f ever. She states she does have a nonproductive cough. She has no lower extremity swelling or pain. She states her symptoms are moderate to severe and worsening with any exertion. ROS: See above HPI for pertinent positives & negatives. A total of 10 systems reviewed and were otherwise negative. PAST MEDICAL HISTORY: See Below PAST SURGICAL HISTORY: See Below FAMILY HISTORY: See Below SOCIAL HISTORY: See Below HOME MEDICATIONS: See Below ALLERGIES: See Below VITALS: See Below PHYSICAL EXAMINATION: GENERAL: The patient is awake and alert. She is somewhat anxious appearing and appears to be uncomfortable EYES: The conjunctivae are clear. The pupils are round and reactive. EARS, NOSE, MOUTH AND THROAT: The nose is without any evidence of any deformity. Mucous membranes are moist. Tongue is midline. NECK: The neck is nontender and supple. RESPIRATORY: Splinting respirations were noted with diminished breath sounds noted throughout. There was tachypnea and conversational dyspnea appreciated. CARDIOVASCULAR: Regular rate and rhythm noted there no murmurs rubs or gallops normal S1 normal S2. GASTROINTESTINAL: The abdomen is soft. Abdomen is nontender. MUSCULOSKELETAL/EXTREMITIES: There is no evidence of gross deformity full range of motion is noted in the hips and shoulders. SKIN: There is no obvious evidence of any rash. There are no petechiae, pallor or cyanosis noted. NEUROLOGIC: Patient is awake alert and oriented x3 strength is symmetric patellar reflexes are 2+ bilaterally MEDICAL DECISION MAKING: The patient is a 30-year-old female who has a history of moderate to severe asthma in the past. She was seen in our facility last evening for similar complaints. She presented to the emergency department for worsening symptoms. She states that after she was seen in our emergency department she was significantly improved and was felt to be a good candidate for outpatient management. She presented to the emergency department again today because of recurrence of her symptoms. She appeared to have significant difficulty breathing. She was treated with an hour-long DuoNeb as well as IV steroids. She was significantly improved on reevaluation but still had very significant symptoms with exertion. I discussed the patient's laboratory results with her. At this time she would prefer not to have a chest x-ray as she just had one yesterday. Given her symmetric findings I am not sure if another chest x-ray is completely warranted at this time. Because of patient's ongoing symptoms I discussed her case with the on-call [facility] hospitalist group. They have agreed to evaluate the patient in the emergency department. Covid status is pending at this time. Triage Nursing notes reviewed. Prior medical records reviewed Vital Signs: reviewed and remarkable for no significant abnormalities Differential diagnosis: Reactive airway disease, pneumonia, pneumothorax, COPD, CHF, infections, cardiac ischemia, pulmonary embolism, musculoskeletal, gastrointestinal, as well as other pathologies. ER treatment provided: See below Diagnostics interpreted by me: ECG: EKG was obtained in the emergency department. My interpretation is normal sinus rhythm at 82 bpm. There is no ectopy. Diffuse T wave inversions were noted. This was compared to a tracing from December 25, 2020. No significant changes were noted. Cardiac Monitoring: An order was placed for continuous cardiac monitoring. The monitor shows a rate of 85 bpm with sinus rhythm. Laboratory studies: As stated above and show below. Imaging studies: See below Consultation(s): I discussed this case [facility] will evaluate the patient in the emergency department for further management. ED COURSE: Procedures: The patient was reevaluated. Her breathing appeared much easier but she continues to have diffuse wheezing throughout. She is much less tachypneic and has much less conversational dyspnea. Critical Care: I have personally spent greater than 40 minutes of critical care time in the direct management of this patient. This includes bedside care, interpretation of diagnostic studies, and testing, discussion with consultants, patient, and family members, and other required patient management activities. This 40 minutes is in excess of all separately billable procedures. Past Med/Surg History Medical History (Updated 12/26/20 @ 19:49 by Jose L Valiente DO) Asthma Demyelinating disease GERD (gastroesophageal reflux disease) Idiopathic intracranial hypertension NO MEDS AT CURRENT FOLLOW WITH [facility] Iron deficiency anemia Migraines Vocal cord dysfunction age 16 Surgical History History of bronchoscopy History of section X 2 History of dilatation and curettage History of esophagogastroduodenoscopy (EGD) History of Amadou fundoplication X 2- Family History Family/Other Family history of diabetes mellitus Father Asthma Grandmother (Paternal) Asthma Brother Cancer Grandfather (Maternal) Hypertension Brother Liver disease Mother Lupus Sister Family history of PCOS Aunt Spina bifida Social History Smoking Status: Never smoker Second Hand Exposure: No; Hx Alcohol Use: No Hx Substance Use: No Preferred Language: Somali Communication Ability: Effective [employer] Chair Required: No Beliefs That Will Affect Care: None marital status: Current Living Situation: Spouse Feels Safe at Home: Yes Assistive Devices: Glasses Allergies Allergies Allergy/AdvReac Type Severity Reaction Status Date / Time Sulfa (Sulfonamide Allergy Intermediate Hives Verified 12/26/20 16:08 Antibiotics) sulfamethoxazole Allergy Intermediate HIVES Verified 12/26/20 16:08 trimethoprim Allergy Intermediate HIVES Verified 12/26/20 16:08 Bactrim Allergy Unknown HIVES Verified 11/29/17 22:58 Home Meds Home Medications Medication Instructions Recorded Confirmed albuterol sulfate 2 puff INHALATION Q4H PRN 01/10/19 12/26/20 Probiotic 3,000 mmu cells PO QAM 08/19/19 12/26/20 multivitamin 1 tab PO QAM 08/19/19 12/26/20 omalizumab 150 mg subcutaneous 150 mg SUBCUT UD 09/14/20 12/26/20 solution Previous Rx's Medication Instructions Recorded topiramate 50 mg tablet 50 mg PO BID 30 Days #60 tab 11/30/20 prednisone 50 mg PO DAILY 5 Days #5 tab 12/25/20 Results & Data (ED) Vital Signs Vital Signs - 24 hr 12/26/20 14:36 12/26/20 14:45 12/26/20 15:23 Temperature 36.7 C Temperature Source Temporal Artery Scan Pulse Rate 96 H 82 Pulse Rate [Apical] 82 89 Pulse Rhythm Regular Regular Pulse Rhythm [Apical] Regular Pulse Strength Normal Respiratory Rate 26 H 26 H 24 Respiratory Effort / Characteristics Non-Labored Spontaneous Labored Short of Breath Spontaneous Short of Breath Respiratory Depth Normal Normal Respiratory Pattern Tachypnea Blood Pressure 132/84 Blood Pressure [Right Arm] 105/64 Blood Pressure Mean 100 Blood Pressure Mean [Right Arm] 77 Blood Pressure Position Sitting Pulse Oximetry 98 98 98 Oxygen Delivery Method Room Air Room Air Room Air Sepsis Recent Fever Within 48 Hours No Sepsis New/Unexplained Change in Mental Status N/A Sepsis Action Taken by Nursing No Action Required 12/26/20 16:45 12/26/20 17:30 12/26/20 18:00 Temperature Temperature Source Pulse Rate Pulse Rate [Apical] 94 H 99 H 97 H Pulse Rhythm Pulse Rhythm [Apical] Pulse Strength Respiratory Rate 22 22 20 Respiratory Effort / Characteristics Short of Breath Short of Breath Respiratory Depth Respiratory Pattern Regular Blood Pressure Blood Pressure [Right Arm] 105/64 105/64 105/64 Blood Pressure Mean Blood Pressure Mean [Right Arm] 77 77 77 Blood Pressure Position Pulse Oximetry 99 95 99 Oxygen Delivery Method Room Air Room Air Room Air Sepsis Recent Fever Within 48 Hours Sepsis New/Unexplained Change in Mental Status Sepsis Action Taken by Nursing 12/26/20 18:59 Temperature Temperature Source Pulse Rate Pulse Rate [Apical] 96 H Pulse Rhythm Pulse Rhythm [Apical] Regular Pulse Strength Respiratory Rate 20 Respiratory Effort / Characteristics Respiratory Depth Respiratory Pattern Blood Pressure Blood Pressure [Right Arm] 106/65 Blood Pressure Mean Blood Pressure Mean [Right Arm] 78 Blood Pressure Position Pulse Oximetry 99 Oxygen Delivery Method Room Air Sepsis Recent Fever Within 48 Hours Sepsis New/Unexplained Change in Mental Status Sepsis Action Taken by Snf Medications Current Medication List: was personally reviewed by me Laboratory Data Attestation: I reviewed the patient's lab results. Result diagrams: 12/26/20 15:21 12/26/20 15:21 Lab Results 12/26/20 12/26/20 12/26/20 Range/Units 15:21 15:21 15:21 WBC 16.38 H (4.8-10.8) K/uL RBC 5.22 (4.2-5.4) M/uL Hgb 14.5 (12.0-16.0) g/dL Hct 42.6 (37-47) % MCV 81.6 (80-100) fL MCH 27.8 (25-34) pg MCHC 34.0 (32-36) g/dL RDW Std Deviation 47.2 H (36.4-46.3) fL RDW Coeff of Camryn 15.8 H (11.5-14.5) % Plt Count 329 (130-400) K/uL MPV 9.6 (7.4-10.4) fL Immature Gran % (Auto) 0.3 % Neut % (Auto) 77.4 % Lymph % (Auto) 16.3 % Lassen % (Auto) 5.8 % Eos % (Auto) 0.1 % Baso % (Auto) 0.1 % Neut # (Auto) 12.67 H (1.4-6.5) K/uL Lymph # (Auto) 2.67 (1.2-3.4) K/uL Lassen # (Auto) 0.95 H (0.11-0.59) K/uL Eos # (Auto) 0.02 (0-0.5) K/uL Baso # (Auto) 0.02 (0-0.2) K/uL Immature Gran # (Auto) 0.05 H (0.00-0.02) K/uL Sodium 141 (136-145) mmol/L Potassium 3.2 L (3.5-5.1) mmol/L Chloride 113 H (98-107) mmol/L Carbon Dioxide 20 L (21-32) mmol/L Anion Gap 8.0 (3-11) BUN 8 (7-18) mg/dl Creatinine 0.98 (0.6-1.2) mg/dl Est Cr Clr Drug Dosing 85.1 ml/min Est GFR ( Amer) 90.3 ml/min Est GFR (Non-Af Amer) 78.0 ml/min BUN/Creatinine Ratio 8.6 L (10-20) Glucose 112 H (70-99) mg/dl Calcium 9.5 (8.5-10.1) mg/dl Magnesium 2.3 (1.8-2.4) mg/dl Total Bilirubin 0.6 (0.2-1) mg/dl AST 12 L (15-37) U/L ALT 23 (12-78) U/L Alkaline Phosphatase 52 (45-117) U/L Troponin I < 0.015 (0-0.045) ng/ml Total Protein 7.8 (6.4-8.2) gm/dl Albumin 4.3 (3.4-5.0) gm/dl Globulin 3.5 (2.5-4.0) gm/dl Albumin/Globulin Ratio 1.2 (0.9-2) HCG, Qual Negative (Negative) COVID-19 Eval Order 12/26/20 Range/Units 18:30 WBC (4.8-10.8) K/uL RBC (4.2-5.4) M/uL Hgb (12.0-16.0) g/dL Hct (37-47) % MCV (80-100) fL MCH (25-34) pg MCHC (32-36) g/dL RDW Std Deviation (36.4-46.3) fL RDW Coeff of Camryn (11.5-14.5) % Plt Count (130-400) K/uL MPV (7.4-10.4) fL Immature Gran % (Auto) % Neut % (Auto) % Lymph % (Auto) % Lassen % (Auto) % Eos % (Auto) % Baso % (Auto) % Neut # (Auto) (1.4-6.5) K/uL Lymph # (Auto) (1.2-3.4) K/uL Lassen # (Auto) (0.11-0.59) K/uL Eos # (Auto) (0-0.5) K/uL Baso # (Auto) (0-0.2) K/uL Immature Gran # (Auto) (0.00-0.02) K/uL Sodium (136-145) mmol/L Potassium (3.5-5.1) mmol/L Chloride (98-107) mmol/L Carbon Dioxide (21-32) mmol/L Anion Gap (3-11) BUN (7-18) mg/dl Creatinine (0.6-1.2) mg/dl Est Cr Clr Drug Dosing ml/min Est GFR ( Amer) ml/min Est GFR (Non-Af Amer) ml/min BUN/Creatinine Ratio (10-20) Glucose (70-99) mg/dl Calcium (8.5-10.1) mg/dl Magnesium (1.8-2.4) mg/dl Total Bilirubin (0.2-1) mg/dl AST (15-37) U/L ALT (12-78) U/L Alkaline Phosphatase (45-117) U/L Troponin I (0-0.045) ng/ml Total Protein (6.4-8.2) gm/dl Albumin (3.4-5.0) gm/dl Globulin (2.5-4.0) gm/dl Albumin/Globulin Ratio (0.9-2) HCG, Qual (Negative) COVID-19 Eval Order Covid19 at [facility] Administered Medications Discontinued Medications Albuterol (Albut/Ipratrop 3mg/0.5mg Neb 3 Ml Vial) 12 ml NEB ONE ONE Stop: 12/26/20 15:06 Last Admin: 12/26/20 15:23 Dose: 12 ml Documented by: [id number] Sodium Chloride (Nss 1000ml) 1,000 mls @ 999 mls/hr IV .Q1H1M ONE Stop: 12/26/20 19:07 Last Infusion: 12/26/20 19:47 Dose: 0 mls/hr Documented by: [id number] Admin: 12/26/20 18:17 Dose: 999 mls/hr Documented by: [id number] Methylprednisolone (Methylprednisolone 125 Mg/2 Ml Vial) 125 mg IV NOW STA Stop: 12/26/20 15:06 Last Admin: 12/26/20 15:25 Dose: 125 mg Documented by: [id number] Discharge Plan Visit Data Chief Complaint: Asthma Stated Complaint: ASTHMA ED Provider: Jose L Valiente Discharge Problem: Asthma with acute exacerbation in adult Patient Disposition: Being Evaluated by Hospitalist Condition: Good Forms Stand Alone Forms: My [employer] Prescriptions Prescriptions: No Action topiramate 50 mg tablet 50 mg PO BID 30 Days Qty: 60 RF: 2 Xolair 150 mg recon soln 150 mg subcut UD RF: 0 albuterol sulfate 90 mcg/actuation HFA aerosol inhaler 2 puff inhalation Q4H PRN (Reason: Cough/Wheeze or SOB) RF: 0 multivitamin Tablet 1 tab PO QAM RF: 0 Probiotic 3 billion cell Capsule 3,000 mmu cells PO QAM RF: 0 prednisone 50 mg tablet 50 mg PO DAILY 5 Days Qty: 5 RF: 0 Referrals Referrals: Lynette Jorge DO [Primary Care Provider] - Discharge Problem: Asthma with acute exacerbation in adult Qualifiers: Asthma severity: moderate Asthma persistence: persistent Qualified Code(s): J45.41 - Moderate persistent asthma with (acute) exacerbation
[2020-12-26 15:33] LABS: Basophils # (auto) 0.02 K/uL (0-0.2); Basophils % (auto) 0.1 %; Eosinophils # (auto) 0.02 K/uL (0-0.5); Eosinophils % (auto) 0.1 %; Hematocrit (blood only) 42.6 % (37-47); Hemoglobin 14.5 g/dL (12.0-16.0); Immature Granulocytes # (auto) 0.05 K/uL (0.00-0.02); Immature Granulocytes % (auto) 0.3 %; Lymphocytes # (auto) 2.67 K/uL (1.2-3.4); Lymphocytes % (auto) 16.3 %; Mean Corpuscular Hemoglobin 27.8 pg (25-34); Mean Corpuscular Volume 81.6 fL (80-100); Mean Platelet Volume 9.6 fL (7.4-10.4); Monocytes # (auto) 0.95 K/uL (0.11-0.59); Monocytes % (auto) 5.8 %; Neutrophils # (auto) 12.67 K/uL (1.4-6.5); Neutrophils % (auto) 77.4 %; Platelet Count 329 K/uL (130-400); RDW Coefficient of Variation 15.8 % (11.5-14.5); RDW Standard Deviation 47.2 fL (36.4-46.3); Red Blood Count 5.22 M/uL (4.2-5.4); White Blood Count 16.38 K/uL (4.8-10.8)
[2020-12-26 15:53] LABS: Pregnancy Test, Serum Negative (Negative)
[2020-12-26 16:02] LABS: Alanine Aminotransferase 23 U/L (12-78); Albumin Level 4.3 gm/dl (3.4-5.0); Aspartate Aminotransferase 12 U/L (15-37); BUN Creatinine Ratio 8.6 (10-20); Blood Urea Nitrogen 8 mg/dl (7-18); Calcium 9.5 mg/dl (8.5-10.1); Carbon Dioxide 20 mmol/L (21-32); Chloride 113 mmol/L (98-107); Creatinine Clr Calc Pharmacy 85.1 ml/min; Est GFR (African American) 90.3 ml/min; Glucose 112 mg/dl (70-99); Magnesium 2.3 mg/dl (1.8-2.4); Potassium 3.2 mmol/L (3.5-5.1); Sodium 141 mmol/L (136-145)
[2020-12-26 16:07] LABS: Albumin Globulin Ratio 1.2 (0.9-2); Alkaline Phosphatase 52 U/L (45-117); Bilirubin,Total 0.6 mg/dl (0.2-1); Globulin 3.5 gm/dl (2.5-4.0); Total Protein 7.8 gm/dl (6.4-8.2); Troponin I < 0.015 ng/ml (0-0.045)
[2020-12-26] MEDS ORDERED: SODIUM CHLORIDE 0.9% 1000ML 1,000 ML IV ONE (18:07)
[2020-12-26] MEDS ORDERED: POTASSIUM CHLORIDE CRTAB 20 MEQ TABCR PO STA ×2 (19:54→21:55)
[2020-12-26] MEDS ORDERED: POTASSIUM CHLORIDE 20 MEQ/15 ML UDC ONE (19:58)
--- NOTE | 2020-12-26 20:03 | History & Physical Report ---
Date of Service December 26, 2020 Assessment & Plan (1) Asthma exacerbation: (2) Hypokalemia: (3) Migraines: (4) Idiopathic intracranial hypertension: Assessment and plan per Dr. Thurston History of Present Illness Chief Complaint: SOB Primary Care Provider: Lynette Jorge, Pt is 30 y/o F with PMH asthma with history of exacerbations, allergic rhinitis, GERD, idiopathic intracranial HTN, migraine, iron deficiency anemia presented to ER with complaint of shortness of breath and wheezing x2 days. Patient states 2 days ago started with increased chest tightness, increased shortness of breath and wheezing. Reports having dry cough. Denies fever, chills. Patient states has been using her albuterol nebulizer every 2 hours without much relief. Patient was getting Xolair injections every 4 weeks however last dose was October 2020. She felt like when she was on Xolair her asthma was much better controlled. Patient was seen in ER 12/25/2020 for asthma exacerbation with chest x-ray without acute infiltrate and was given Solu-Medrol 125 mg IV, hour-long albuterol treatment and was discharged home. Patient states shortly after returning home had increased shortness of breath and wheezing again and presented to ER today. Patient denies any ill contacts or known Covid exposures. Did not have COVID-19 vaccination. Denies fever/chills, diaphoresis, N/V/D/C, BOLANOS, dizziness, syncope, vision changes, neck pain, orthopnea, palpitations, hematemesis, sore throat, choking, otalgia, rhinorrhea, abdominal pain, paresthesias, weakness, extremity weakness, extremity edema, rashes, urinary symptoms. Allergies Allergy/AdvReac Type Severity Reaction Status Date / Time Sulfa (Sulfonamide Allergy Intermediate Hives Verified 12/26/20 16:08 Antibiotics) sulfamethoxazole Allergy Intermediate HIVES Verified 12/26/20 16:08 trimethoprim Allergy Intermediate HIVES Verified 12/26/20 16:08 Bactrim Allergy Unknown HIVES Verified 11/29/17 22:58 Home Medications Medication Instructions Recorded Confirmed Type albuterol sulfate 2 puff INHALATION Q4H PRN 01/10/19 12/26/20 History Probiotic 3,000 mmu cells PO QAM 08/19/19 12/26/20 History multivitamin 1 tab PO QAM 08/19/19 12/26/20 History omalizumab 150 mg subcutaneous 150 mg SUBCUT UD 09/14/20 12/26/20 History solution topiramate 50 mg tablet 50 mg PO BID 30 Days #60 tab 11/30/20 12/26/20 Rx prednisone 50 mg PO DAILY 5 Days #5 tab 12/25/20 12/26/20 Rx albuterol sulfate 2.5 mg INHALATION Q4H PRN 12/26/20 12/26/20 History budesonide-formoterol [Symbicort] 2 puff INHALATION BID 12/26/20 12/26/20 History Past Med/Surg History Medical History Asthma Demyelinating disease GERD (gastroesophageal reflux disease) Idiopathic intracranial hypertension NO MEDS AT CURRENT FOLLOW WITH [facility] Iron deficiency anemia Migraines Vocal cord dysfunction age 16 Surgical History History of bronchoscopy History of section X 2 History of dilatation and curettage History of esophagogastroduodenoscopy (EGD) History of Amadou fundoplication X 2- Family History Family/Other Family history of diabetes mellitus Father Asthma Grandmother (Paternal) Asthma Brother Cancer Grandfather (Maternal) Hypertension Brother Liver disease Mother Lupus Sister Family history of PCOS Aunt Spina bifida Social History Smoking Status: Never smoker Second Hand Exposure: No; Do You Dip or Chew Tobacco: No; Hx Alcohol Use: No Hx Substance Use: No Preferred Language: Luxembourgish Communication Ability: Effective Signal [employer] Required: No Beliefs That Will Affect Care: None marital status: Current Living Situation: Family Other Information That Helps Us Care for You: No Feels Safe at Home: Yes Safety Concerns: Feels Safe At This Time Assistive Devices: Glasses Review of Systems Review of Systems: All systems reviewed & are unremarkable except as noted in HPI & below Physical Exam Physical Exam: General: no distress, WDWN Head: normocephalic, atraumatic Eyes: conjunctiva non-injected, anicteric ENT: normal inspection external ears, nose, mucous membranes moist Neck: supple, trachea midline Lungs: +diminished breath sounds throughout with inspiratory and expiratory wheezing, no rhonchi/rales noted CV: RRR, no murmur, no pretibial edema Abd: normal BS, soft, non-tender Ext: no cyanosis, no calf tenderness Neuro: A&O x 3, no focal deficits noted, normal affect Skin: warm, dry Results & Data Results & Data ([facility]) Vital Signs (Past 12 Hours) Vital Signs Temp Pulse Pulse Resp BP BP Pulse Ox 12/26/20 19:54 82 16 105/64 95 12/26/20 18:59 96 H 20 106/65 99 12/26/20 18:00 97 H 20 105/64 99 12/26/20 17:30 99 H 22 105/64 95 12/26/20 16:45 94 H 22 105/64 99 12/26/20 15:23 89 24 98 12/26/20 14:45 82 82 26 H 105/64 98 12/26/20 14:36 36.7 C 96 H 26 H 132/84 98 Laboratory Results Short CBC 12/26/20 Range/Units 15:21 WBC 16.38 H (4.8-10.8) K/uL Hgb 14.5 (12.0-16.0) g/dL Hct 42.6 (37-47) % Plt Count 329 (130-400) K/uL BMP 12/26/20 15:21 Sodium 141 Potassium 3.2 L Chloride 113 H Carbon Dioxide 20 L BUN 8 Creatinine 0.98 Glucose 112 H Calcium 9.5 Cardiac Enzymes 12/26/20 Range/Units 15:21 Troponin I < 0.015 (0-0.045) ng/ml Liver Function 12/26/20 Range/Units 15:21 Total Bilirubin 0.6 (0.2-1) mg/dl AST 12 L (15-37) U/L ALT 23 (12-78) U/L Alkaline Phosphatase 52 (45-117) U/L Albumin 4.3 (3.4-5.0) gm/dl Supervising Physician Co-Signing Physician Notes IM ATTENDING : Patient seen and examined. History obtained from patient and records. Preceding documentation by Ms. Michela Schreckengost, PA-C reviewed. FINAL ASSESSMENT AND PLAN as follows : In addition : CT chest initial read : No pulmonary embolus. No consolidation. History of distal esophageal surgery. Asthma exacerbation Failed outpatient treatment Precipitants include change in weather, Xolair unavailability since last month Steroid induced hyperglycemia ro DM Hypokalemia secondary to poor p.o. intake hx migraine/idiopathic intracranial hypertension, stable on Topamax OBS Medical telemetry Steroids, nebs RTC and as needed Pulmonary consult if without improvement Check hemoglobin A1c Replace potassium DVT prophylaxis per Lovenox subcu Full code Text document was generated using [employer] voice recognition software. It may contain grammatical or spelling errors. Kindly contact undersigned for clarification of any documentation item in question. (1) Asthma exacerbation Asthma persistence: unspecified Asthma severity: moderate Qualified Code(s): J45.901 - Unspecified asthma with (acute) exacerbation
[2020-12-26] MEDS ORDERED: POTASSIUM CHLORIDE 10 MEQ TABCR PO ONE (20:19)
[2020-12-26 20:29] LABS: Partial Thromboplastin Ratio 0.8; Partial Thromboplastin Time 21.4 Seconds (21.0-31.0)
[2020-12-26 20:33] LABS: D Dimer 930 ug/L FEU (0-500)
[2020-12-26] MEDS ORDERED: ACETAMINOPHEN 325 MG TAB PO PRN (21:55)
[2020-12-26] MEDS ORDERED: PROMETHAZINE HCL 12.5 MG in SODIUM CHLORIDE 0.9% 50 ML IV PRN (21:55)
[2020-12-26] MEDS ORDERED: traMADol HCL 50 MG TABLET PO PRN (21:55)
[2020-12-26] MEDS ORDERED: POTASSIUM CHLORIDE 40 MEQ in SODIUM CHLORIDE 0.9% 1000ML 1,000 ML IV ONE (22:20)
[2020-12-26] MEDS ORDERED: ALBUT/IPRATROP 3MG/0.5MG NEB 3 ML VIAL NEB STA (22:41)
[2020-12-26] MEDS ORDERED: XOPENEX/ATROVENT 1.25mg/0.5MG NEB COMBO NEB PRN (23:12)
[2020-12-26] MEDS ORDERED: LEVALBUTEROL 1.25MG/0.5ML NEB INH PRN (23:15)
[2020-12-26] MEDS ORDERED: IPRATROPIUM BROMIDE NEB SOLN 0.02% 2.5 ML VIAL INH PRN (23:15)
[2020-12-26] MEDS: TOPIRAMATE 50 MG TAB PO SCH (23:33)
[2020-12-26] MEDS: guaiFENesin 600 MG TABCR PO SCH (23:33)
[2020-12-27] MEDS ORDERED: methylPREDNISolone 40 MG in SYRINGE 0 ML IV SCH
[2020-12-27] MEDS ORDERED: OPTIRAY 350 500ml IV ONE (00:10)
[2020-12-27] MEDS: methylPREDNISolone 40 MG in SYRINGE 0 ML IV SCH ×3 (00:13→22:36)
[2020-12-27] MEDS: LEVALBUTEROL 1.25MG/0.5ML NEB INH SCH ×6 (00:50→22:19)
[2020-12-27] MEDS: IPRATROPIUM BROMIDE NEB SOLN 0.02% 2.5 ML VIAL INH SCH ×6 (00:50→22:18)
[2020-12-27] MEDS ORDERED: XOPENEX/ATROVENT 1.25mg/0.5MG NEB COMBO NEB SCH (01:00)
[2020-12-27] MEDS ORDERED: PNEUMOCOCCAL Polysaccharide Vaccine 25mcg/0.5mL vial/Syr IM ONE (05:45)
[2020-12-27 07:09] LABS: Hematocrit (blood only) 37.9 % (37-47); Hemoglobin 12.7 g/dL (12.0-16.0); Immature Granulocytes # (auto) 0.03 K/uL (0.00-0.02); Immature Granulocytes % (auto) 0.2 %; Lymphocytes # (auto) 0.81 K/uL (1.2-3.4); Lymphocytes % (auto) 6.5 %; Mean Corpuscular Hemoglobin 27.5 pg (25-34); Mean Corpuscular Hgb Conc 33.5 g/dL (32-36); Mean Platelet Volume 9.5 fL (7.4-10.4); Monocytes # (auto) 0.32 K/uL (0.11-0.59); Monocytes % (auto) 2.6 %; Neutrophils # (auto) 11.33 K/uL (1.4-6.5); Neutrophils % (auto) 90.7 %; Platelet Count 286 K/uL (130-400); RDW Coefficient of Variation 16.1 % (11.5-14.5); RDW Standard Deviation 48.4 fL (36.4-46.3); Red Blood Count 4.62 M/uL (4.2-5.4); White Blood Count 12.49 K/uL (4.8-10.8)
[2020-12-27 07:43] LABS: Estimated Average Glucose 111 mg/dl; Hemoglobin A1C 5.5 % (4.5-5.6)
[2020-12-27 07:44] LABS: BUN Creatinine Ratio 7.9 (10-20); Calcium 8.8 mg/dl (8.5-10.1); Creatinine Clr Calc Pharmacy 116.9 ml/min; Est GFR (African American) 131.2 ml/min; Est GFR (Non-African American) 113.2 ml/min; Potassium 3.9 mmol/L (3.5-5.1)
[2020-12-27] MEDS: ADVANCED PROBIOTIC 1250 MG CAPSULE PO SCH (08:09)
[2020-12-27] MEDS: MULTIVITAMIN TAB PO SCH (08:09)
[2020-12-27] MEDS: guaiFENesin 600 MG TABCR PO SCH ×2 (08:09→20:40)
[2020-12-27] MEDS: ENOXAPARIN INJ 40 MG/0.4 ML SYR SQ SCH (08:10)
[2020-12-27] MEDS: TOPIRAMATE 50 MG TAB PO SCH (08:10)
[2020-12-27] MEDS: POLYETHYLENE (MIRALAX) 17 GM PACK PO PRN ×2 (09:09→10:48)
[2020-12-27] MEDS ORDERED: TOPIRAMATE 50 MG TAB PO ONE (09:45)
--- NOTE | 2020-12-27 09:57 | Electrocardiogram Report ---
Test Reason : Blood Pressure : / mmHG Vent. Rate : 082 BPM Atrial Rate : 082 BPM P-R Int : 138 ms QRS Dur : 072 ms QT Int : 376 ms P-R-T Axes : 068 -02 -04 degrees QTc Int : 439 ms Normal sinus rhythm Moderate voltage criteria for LVH, may be normal variant Nonspecific T wave abnormality Abnormal ECG When compared with ECG of 25-DEC-2020 18:37, No significant change was found Confirmed by Brian Munguia ([id number]) on 12/27/2020 9:56:37 AM Referred By: REFERRED SELF Confirmed By:Niko Munguia
--- NOTE | 2020-12-27 11:20 | CT Scan Report ---
CT ANGIOGRAM OF THE CHEST CLINICAL HISTORY: PE COMPARISON STUDY: August 28, 2019 TECHNIQUE: Following the IV administration of mL of Optiray, CT angiogram of the thorax was performed from the thoracic inlet to the lung bases utilizing the pulmonary embolus protocol. Images are revie wed in the axial, sagittal, and coronal planes. IV contrast was administered without complication. [place] P imaging was performed. A dose lowering technique was utilized adhering to the principles of ALARA. CT DOSE: 275.02 mGy.cm FINDINGS: There is adequate opacification within main pulmonary artery. Mild respiratory motion artifact limits evaluation of peripheral branches of the pulmonary artery. No pulmonary embolus is seen. No evidence of right heart strain. Main pulmonary artery is nondilated. Heart is normal in size without evidence of pericardial effusion. No coronary calcifications are seen . Nonpathological lymphadenopathy seen. Visualized portion of thyroid gland shows no evidence of focal lesions. Esophagus: Mild hiatal hernia. Tracheobronchial tree is patent. This study is performed during partial expiratory phase. Mild mosaic pattern of lung parenchymal attenuation likely related to expiratory phase. No large infiltrates or consolidative lesions are seen. No pleural effusion demonstrated. Limited evaluation of upper abdominal viscera shows no evidence of acute abnormalities. Osseous structures are unremarkable. IMPRESSION: 1. No evidence of pulmonary embolus. Evaluation of the peripheral branches of pulmonary artery is sl ightly limited due to respiratory motion artifact. 2. No large infiltrates or consolidative lesions. 3. Hiatal hernia. ACT 112: Negative or not required by law. The above report was generated using voice recognition software. It may contain grammatical, syntax o r spelling errors. Electronically signed by: Mala Null DO 12/27/2020 11:19 AM
[2020-12-27] MEDS: FLUTICASONE/VILANTEROL 200/25MCG 14 PUFFS/INHALER INH SCH (11:50)
--- NOTE | 2020-12-27 14:17 | Pulmonary Consultation ---
Date of Consultation December 27, 2020 Assessment & Plan (1) Asthma with acute exacerbation in adult: Asthma persistence: persistent Asthma severity: moderate Qualified Code(s): J45.41 - Moderate persistent asthma with (acute) exacerbation (2) Allergic rhinitis: Impression: 30-year-old female with moderate persistent asthma admitted with exacerbation. This may have been related to her sinus issues as well as difficulty staying on her anti-IgE medication. She also has a history of vocal cord dysfunction but is not having stridor currently. Recommendation: 1. Asthma: Continue steroids but I think he can transition to prednisone at this point time. Continue ICS LABA. Would consider the addition of Spiriva or Incruse to her regiment to see if this offers her clinical benefit. 2. Case management should assist in getting the patient reestablished with her outpatient instructor decorating to facilitate her Xolair injections. 3. The patient did not demonstrate any significant eosinophilia on this presentation so I do not think she would qualify for Dupixent or Fasenra. Again outpatient follow-up will be necessary for the patient. 4. The patient's current symptoms may have been triggered by her underlying sinus issues. Recommend topical nasal steroid such as Flonase as well as antihistamine decongestant in the form of Sudafed/chlorpheniramine. 5. Patient should continue to trend her peak flows at home. Follow-up assessment with exhaled nitric oxide in the outpatient setting may be beneficial in guiding future therapy. Thanks for the opportunity participating in the care of this patient. Anticipate that she should be able to dismiss from the hospital in relatively short order with follow-up with her outpatient instructor decorating in the [facility]. Allergic rhinitis seasonality: seasonal Allergic rhinitis trigger: pollen Qualified Code(s): J30.1 - Allergic rhinitis due to pollen History of Present Illness Attending Physician: Matias Garcia MD History of Present Illness Asked by hospitalist to assist in evaluation management this patient with asthma. History is obtained from review electronic medical record and discussion with the patient at bedside. The patient is a 30-year-old -[place] female with a longstanding history of asthma. She states she was diagnosed as a child. She had multiple admissions as a child for fairly severe asthma and has been intubated on 2 occasions. Her last intubation was over 10 years ago. The patient is under the care of Dr. Marina at [facility] and about a year ago was started on Xolair based on an elevated IgE level. Unfortunately I do not have any records from Dr. Marina to review. She states that the addition of Xolair has been highly effective in improving her respiratory symptoms and she has been well maintained on her baseline dose of ICS/LABA. She has been on Singulair in the past but is unclear if it offers her a clinical benefit. She did have significant reflux but is undergone Amadou fundoplication x2 and no longer has reflux symptoms. She does report a prior history of nasal polyps. She is unclear if she was ever evaluated for Fasenra or Dupixent. She is on steroids a few times a year. She does report some allergy symptoms and sinus complaints antecedent to her current asthma problem. The patient reportedly has had issues getting her Xolair. This apparently is a distributor related issue and she is not had an injection in over 2 months. She believes that she may have been previously on some immunomodulatory/antiallergy shots but is unclear if these were beneficial and we do not have details from that evaluation. Her last PFTs were performed several months ago and she was told at that time that she had "reactive airways disease". She does have a hamster at home. She is a non-smoker. No history of e-cigarette use or vaping. She does have a son with eczema. She does not monitor her peak flows regularly but states that her peak flows typically run in the 400 range when she is doing well. Patient initially was seen in the emergency room 2 days prior to admission and treated with the Solu-Medrol given prescription for prednisone. She had difficulty getting the prednisone filled and return to the emergency room with persistent complaints which prompted admission to the hospital. She states that she is feeling better currently. Allergies Allergy/AdvReac Type Severity Reaction Status Date / Time Sulfa (Sulfonamide Allergy Intermediate Hives Verified 12/26/20 16:08 Antibiotics) sulfamethoxazole Allergy Intermediate HIVES Verified 12/26/20 16:08 trimethoprim Allergy Intermediate HIVES Verified 12/26/20 16:08 Bactrim Allergy Unknown HIVES Verified 11/29/17 22:58 Home Medications Medication Instructions Recorded Confirmed Type albuterol sulfate 2 puff INHALATION Q4H PRN 01/10/19 12/26/20 History Probiotic 3,000 mmu cells PO QAM 08/19/19 12/26/20 History multivitamin 1 tab PO QAM 08/19/19 12/26/20 History omalizumab 150 mg subcutaneous 150 mg SUBCUT UD 09/14/20 12/26/20 History solution topiramate 50 mg tablet 50 mg PO BID 30 Days #60 tab 11/30/20 12/26/20 Rx prednisone 50 mg PO DAILY 5 Days #5 tab 12/25/20 12/26/20 Rx albuterol sulfate 2.5 mg INHALATION Q4H PRN 12/26/20 12/26/20 History budesonide-formoterol [Symbicort] 2 puff INHALATION BID 12/26/20 12/26/20 History Patient History Medical History Asthma Demyelinating disease GERD (gastroesophageal reflux disease) Idiopathic intracranial hypertension NO MEDS AT CURRENT FOLLOW WITH [facility] Iron deficiency anemia Migraines Vocal cord dysfunction age 16 Surgical History History of bronchoscopy History of section X 2 History of dilatation and curettage History of esophagogastroduodenoscopy (EGD) History of Amadou fundoplication X 2- Family History Family/Other Family history of diabetes mellitus Father Asthma Grandmother (Paternal) Asthma Brother Cancer Grandfather (Maternal) Hypertension Brother Liver disease Mother Lupus Sister Family history of PCOS Aunt Spina bifida Social History Smoking Status: Never smoker Second Hand Exposure: No; Do You Dip or Chew Tobacco: No; Hx Alcohol Use: No Hx Substance Use: No Preferred Language: Azeri Communication Ability: Effective Client Finance Analyst Required: No Beliefs That Will Affect Care: None marital status: Current Living Situation: Family Other Information That Helps Us Care for You: No Feels Safe at Home: Yes Safety Concerns: Feels Safe At This Time Assistive Devices: None Review of Systems Review of Systems: Please refer to admission H&P. I have no additions or deletions Physical Exam Constitutional: WD/WN, vitals as above Neck: trachea midline, no thyromegaly Respiratory: normal respiratory effort Auscultation: + rhonchi and + wheezes; no crackles and no rales Inspiratory rhonchi present in the bilateral bases with forced expiratory wheezing Cardiovascular: RRR, no murmur, no edema Gastrointestinal (Abdomen): normal bowel sounds, soft, nontender, no hepatosplenomegaly Musculoskeletal: Extremities: extremities normal to inspection Skin: no rashes, warm and dry Neurologic: Nonfocal exam Lymphatic: no cervical lymphadenopathy Results & Data Results & Data ([facility]) Vital Signs (Past 12 Hours) Vital Signs Temp Pulse Pulse Resp BP Pulse Ox 12/27/20 11:19 75 18 98 12/27/20 11:17 36.5 C 78 18 112/72 99 12/27/20 08:05 37 C 113 H 20 124/77 93 12/27/20 07:20 87 18 99 12/27/20 07:16 78 12/27/20 04:38 77 24 98 12/27/20 04:00 37 C 66 20 104/66 97 Laboratory Results 12/27/20 06:41 12/27/20 06:41 Diagnostic Findings Chest x-ray independently reviewed. Lungs are well aerated without focal airspace opacity. No increased interstitial markings. CT angiogram from 12/26/2020 also independently reviewed. No PE. No bronchial wall thickening. No airspace opacity. PG Care Time/CCT Total # of Minutes Spent Total Time Spent with Patient: Total time spent is greater than 50% in coordination of care (as documented) at patient's floor/unit and/or counseling patient: Coding Level of Care Code 30340 Inpt Consult Level 4 Diagnoses Asthma with acute exacerbation in adult J45.41 Asthma persistence: persistent Asthma severity: moderate Allergic rhinitis J30.1 Allergic rhinitis seasonality: seasonal Allergic rhinitis trigger: pollen Time Spent (min) 40
[2020-12-27] MEDS ORDERED: FLUTICASONE PROPIONATE NA SPR 16 GM BTL SCH (14:30)
--- NOTE | 2020-12-27 17:42 | Hospitalist Progress Note ---
Date of Service December 27, 2020 Assessment & Plan (1) Asthma exacerbation: likely from being off Xolair, Pollen Allergy? seems to be improving overall CT chest no pneumonia, no PE continue Symbicort, Solumedrol, Nebs q4h Pulm consulted monitor closely Allergic Rhinitis start Flonase (2) Hypokalemia: K 3.9 (3) Migraines: no headache today (4) Idiopathic intracranial hypertension: stable Disposition: pending anticipate d/c home when medically stable plan of care discussed with patient in detail and at length all questions answered she is understanding, agreeable, comfortable with the plan of care Admission and Anticipated Discharge Date Admission Date: December 26, 2020 Subjective ff up for asthma exacerbation seen resting in bed, sitting up, comfortable, not in distress states she feels improved compared to yesterday breathing is improving, dry cough improving no chest pain no abdominal pain, nausea/vomiting no fever/chills no other symptoms Review of Systems Review of Systems: All systems reviewed & are unremarkable except as noted in Subjective Physical Exam Physical Exam: General- oriented x 3, not in distress, speaks in sentences with no effort or accessory muscle use Head- atraumatic Eyes- PERRL, EOMI, anicteric ENT- oropharynx clear Neck- supple, no JVD, no adenopathy, no thyromegaly; carotids +2/2, no bruits appreciated Lungs- (+) mild expiratory wheeze bilaterally Heart- normal rate, regular rhythm; no murmurs Abdomen- normal bowel sounds, nondistended, soft, nontender, no masses or hepatosplenomegaly Extremities- no pretibial edema, no calf tenderness; peripheral pulses intact Neuro- alert, oriented x 3; CN 2-12 grossly intact; motor 5/5 bilaterally;sensa tion 100% on all extremities; no other gross focal neurologic deficits Skin- warm & dry Results & Data Results & Data ([facility]) Vital Signs (Past 12 Hours) Vital Signs Temp Pulse Pulse Resp BP Pulse Ox 12/27/20 16:40 77 12/27/20 15:33 37.1 C 94 H 19 121/81 94 12/27/20 15:21 85 100 12/27/20 11:19 75 18 98 12/27/20 11:17 36.5 C 78 18 112/72 99 12/27/20 08:05 37 C 113 H 20 124/77 93 12/27/20 07:20 87 18 99 12/27/20 07:16 78 all noted and reviewed including below Laboratory Results Laboratory Results - last 24 hr 12/26/20 12/26/20 12/26/20 15:21 15:21 18:30 WBC RBC Hgb Hct MCV MCH MCHC RDW Std Deviation RDW Coeff of Camryn Plt Count MPV Immature Gran % (Auto) Neut % (Auto) Lymph % (Auto) [place] % (Auto) Eos % (Auto) Baso % (Auto) Neut # (Auto) Lymph # (Auto) [place] # (Auto) Eos # (Auto) Baso # (Auto) Immature Gran # (Auto) APTT PTT Ratio D-Dimer Sodium Potassium Chloride Carbon Dioxide Anion Gap BUN Creatinine Est Cr Clr Drug Dosing Est GFR ( Amer) Est GFR (Non-Af Amer) BUN/Creatinine Ratio Glucose Estimat Average Glucose 111 Hemoglobin A1c 5.5 Calcium TSH 0.610 COVID-19 Eval Order Covid19 at [facility] SARS-CoV-2 (PCR) 12/26/20 12/26/20 12/27/20 18:30 20:05 06:41 WBC 12.49 H RBC 4.62 Hgb 12.7 Hct 37.9 MCV 82.0 MCH 27.5 MCHC 33.5 RDW Std Deviation 48.4 H RDW Coeff of Camryn 16.1 H Plt Count 286 MPV 9.5 Immature Gran % (Auto) 0.2 Neut % (Auto) 90.7 Lymph % (Auto) 6.5 [place] % (Auto) 2.6 Eos % (Auto) 0.0 Baso % (Auto) 0.0 Neut # (Auto) 11.33 H Lymph # (Auto) 0.81 L [place] # (Auto) 0.32 Eos # (Auto) 0.00 Baso # (Auto) 0.00 Immature Gran # (Auto) 0.03 H APTT 21.4 PTT Ratio 0.8 D-Dimer 930 H* Sodium Potassium Chloride Carbon Dioxide Anion Gap BUN Creatinine Est Cr Clr Drug Dosing Est GFR ( Amer) Est GFR (Non-Af Amer) BUN/Creatinine Ratio Glucose Estimat Average Glucose Hemoglobin A1c Calcium TSH COVID-19 Eval Order SARS-CoV-2 (PCR) NEGATIVE 12/27/20 06:41 WBC RBC Hgb Hct MCV MCH MCHC RDW Std Deviation RDW Coeff of Camryn Plt Count MPV Immature Gran % (Auto) Neut % (Auto) Lymph % (Auto) [place] % (Auto) Eos % (Auto) Baso % (Auto) Neut # (Auto) Lymph # (Auto) [place] # (Auto) Eos # (Auto) Baso # (Auto) Immature Gran # (Auto) APTT PTT Ratio D-Dimer Sodium 143 Potassium 3.9 D Chloride 117 H Carbon Dioxide 20 L Anion Gap 6.0 BUN 6 L Creatinine 0.72 Est Cr Clr Drug Dosing 116.9 Est GFR ( Amer) 131.2 Est GFR (Non-Af Amer) 113.2 BUN/Creatinine Ratio 7.9 L Glucose 136 H Estimat Average Glucose Hemoglobin A1c Calcium 8.8 TSH COVID-19 Eval Order SARS-CoV-2 (PCR) (1) Asthma exacerbation Asthma persistence: unspecified Asthma severity: moderate Qualified Code(s): J45.901 - Unspecified asthma with (acute) exacerbation
[2020-12-28] MEDS: LEVALBUTEROL 1.25MG/0.5ML NEB INH SCH ×6 (03:17→22:53)
[2020-12-28] MEDS: IPRATROPIUM BROMIDE NEB SOLN 0.02% 2.5 ML VIAL INH SCH ×6 (03:17→22:53)
[2020-12-28] MEDS: ENOXAPARIN INJ 40 MG/0.4 ML SYR SQ SCH (08:40)
[2020-12-28] MEDS: ADVANCED PROBIOTIC 1250 MG CAPSULE PO SCH (08:48)
[2020-12-28] MEDS: guaiFENesin 600 MG TABCR PO SCH ×2 (08:48→21:07)
[2020-12-28] MEDS: FLUTICASONE/VILANTEROL 200/25MCG 14 PUFFS/INHALER INH SCH (08:48)
[2020-12-28] MEDS: MULTIVITAMIN TAB PO SCH (08:48)
[2020-12-28] MEDS: predniSONE 20 MG TAB PO SCH (08:49)
[2020-12-28] MEDS: TOPIRAMATE 100 MG TAB PO SCH (08:49)
[2020-12-28] MEDS: diphenhydrAMINE Capsule 25 MG CAP PO SCH ×2 (08:49→21:07)
[2020-12-28] MEDS: PSEUDOEPHEDRINE HCL 30 MG TAB PO SCH ×2 (08:49→21:07)
[2020-12-28] MEDS: FLUTICASONE PROPIONATE NA SPR 16 GM BTL SCH ×2 (09:04→21:06)
--- NOTE | 2020-12-28 10:13 | Pulmonology Progress Note ---
Date of Service December 28, 2020 Assessment & Plan (1) Asthma with acute exacerbation in adult: Asthma persistence: persistent Asthma severity: moderate Qualified Code(s): J45.41 - Moderate persistent asthma with (acute) exacerbation (2) Allergic rhinitis: Impression: 30-year-old female with moderate persistent asthma admitted with exacerbation. This may have been related to her sinus issues as well as difficulty staying on her anti-IgE medication and environmental allergens. She also has a history of vocal cord dysfunction but is not having stridor currently. Recommendation: 1. Asthma: Would complete prednisone at 40 mg a day for the next 5 days. She will need to follow-up with her outpatient project facilitator. Continue Symbicort. We will add Singulair and increased to her regimen today. 2. Case management should assist in getting the patient reestablished with her outpatient project facilitator to facilitate her Xolair injections. 3. The patient did not demonstrate any significant eosinophilia on this presentation so I do not think she would qualify for Dupixent or Fasenra. Again outpatient follow-up will be necessary for the patient. 4. The patient's current symptoms may have been triggered by her underlying sinus issues. Continue topical nasal steroid such as Flonase as well as antihistamine decongestant in the form of Sudafed/Benadryl. 5. Patient should continue to trend her peak flows at home. Follow-up assessment with exhaled nitric oxide in the outpatient setting may be beneficial in guiding future therapy. Patient feels like she is doing well and is interested in the possibility of dismissal from the hospital. I think from a pulmonary standpoint she can be safely discharged. She will need close outpatient pulmonary follow-up with her established project facilitator in [facility]. Feel free to contact us if we can be of additional assistance. We will sign off for now. Allergic rhinitis seasonality: seasonal Allergic rhinitis trigger: pollen Qualified Code(s): J30.1 - Allergic rhinitis due to pollen Admission and Anticipated Discharge Date Admission Date: December 27, 2020 Subjective Patient seen and examined. She states she is feeling better. She is able to ambulate. She is rarely coughing. She does feel little bit of wheezing. She not having any reflux. Her sinuses continue to be somewhat problematic. She states she has difficulty with cold weather, hot weather, and when the pollen counts increase Review of Systems Review of Systems: All systems reviewed & are unremarkable except as noted in HPI & below Physical Exam Constitutional: WD/WN, vitals as above Neck: trachea midline, no thyromegaly Respiratory: normal respiratory effort Auscultation: + rhonchi and + wheezes; no crackles and no rales Cardiovascular: RRR, no murmur, no edema Gastrointestinal (Abdomen): normal bowel sounds, soft, nontender, no hepatosplenomegaly Musculoskeletal: Extremities: extremities normal to inspection Skin: no rashes, warm and dry Lymphatic: no cervical lymphadenopathy Results & Data Results & Data ([facility]) Vital Signs (Past 12 Hours) Vital Signs Temp Pulse Pulse Resp BP Pulse Ox 12/28/20 07:15 70 12/28/20 07:14 37.1 C 77 20 129/81 97 12/28/20 07:05 83 18 98 12/28/20 03:51 36.7 C 90 20 123/77 98 12/28/20 03:19 81 16 96 12/27/20 23:00 37.1 C 87 18 113/71 96 12/27/20 22:20 78 12/27/20 22:19 85 14 93 Laboratory Results 12/27/20 06:41 12/27/20 06:41 Diagnostic Findings No new imaging PG Care Time/CCT Total # of Minutes Spent Total Time Spent with Patient: Total time spent is greater than 50% in coordination of care (as documented) at patient's floor/unit and/or counseling patient: Coding Level of Care Code 90346 Subseq Hosp Care Lvl 3 Diagnoses Asthma with acute exacerbation in adult J45.41 Asthma persistence: persistent Asthma severity: moderate Allergic rhinitis J30.1 Allergic rhinitis seasonality: seasonal Allergic rhinitis trigger: pollen Time Spent (min) 35
[2020-12-28] MEDS: MONTELUKAST SODIUM 10 MG TABLET PO SCH (11:47)
[2020-12-28] MEDS: UMECLIDINIUM BROMIDE 62.5MCG/BLISTER 7 PUFFS/INHALER INH SCH (12:30)
--- NOTE | 2020-12-28 15:03 | Hospitalist Progress Note ---
Date of Service December 28, 2020 Assessment & Plan (1) Asthma exacerbation: likely from being off Xolair, Pollen Allergy? continues to improve CT chest no pneumonia, no PE continue Symbicort, Solumedrol--> change to Prednisone, Nebs q4h Pulm consulted: added Incruse Ellipta, Singulair monitor closely also discussed with Dr. Marina- patient's regular Pulm Allergic Rhinitis started Flonase Pulm added Benadryl, Pseudophed (2) Hypokalemia: K 3.9 (3) Migraines: no headache today (4) Idiopathic intracranial hypertension: stable Disposition: pending anticipate d/c home when medically stable plan of care discussed with patient in detail and at length all questions answered she is understanding, agreeable, comfortable with the plan of care Admission and Anticipated Discharge Date Admission Date: December 27, 2020 Subjective ff up for asthma exacerbation, etc seen resting in bed, not in distress comfortable states breathing is improving still has dry cough overall feels that she is improving no chest pain no other symptoms Review of Systems Review of Systems: All systems reviewed & are unremarkable except as noted in Subjective Physical Exam Physical Exam: General- oriented x 3, not in distress, speaks in sentences with no effort or accessory muscle use Eyes- anicteric Neck- no JVD Lungs- better air entry bilaterally occasional wheeze, faint Heart- normal rate, regular rhythm; no murmurs Abdomen- normal bowel sounds, nondistended, soft, nontender Extremities- no pretibial edema, no calf tenderness Neuro- alert, oriented x 3; no gross focal neurologic deficits Skin- warm & dry Results & Data Results & Data ([facility]) Vital Signs (Past 12 Hours) Vital Signs Temp Pulse Pulse Resp BP Pulse Ox 12/28/20 11:27 37.2 C 68 18 120/81 98 12/28/20 11:16 83 18 97 12/28/20 07:15 70 12/28/20 07:14 37.1 C 77 20 129/81 97 12/28/20 07:05 83 18 98 12/28/20 03:51 36.7 C 90 20 123/77 98 12/28/20 03:19 81 16 96 (1) Asthma exacerbation Asthma persistence: unspecified Asthma severity: moderate Qualified Code(s): J45.901 - Unspecified asthma with (acute) exacerbation
[2020-12-28] MEDS: POLYETHYLENE (MIRALAX) 17 GM PACK PO PRN (21:18)
[2020-12-29] MEDS: LEVALBUTEROL 1.25MG/0.5ML NEB INH SCH ×4 (03:18→14:42)
[2020-12-29] MEDS: IPRATROPIUM BROMIDE NEB SOLN 0.02% 2.5 ML VIAL INH SCH ×4 (03:18→14:42)
[2020-12-29 06:59] LABS: Creatinine Clr Calc Pharmacy 89.7 ml/min; Est GFR (African American) 96.3 ml/min; Est GFR (Non-African American) 83.1 ml/min
[2020-12-29] MEDS: guaiFENesin 600 MG TABCR PO SCH (10:03)
[2020-12-29] MEDS: MONTELUKAST SODIUM 10 MG TABLET PO SCH (10:03)
[2020-12-29] MEDS: FLUTICASONE/VILANTEROL 200/25MCG 14 PUFFS/INHALER INH SCH (10:03)
[2020-12-29] MEDS: TOPIRAMATE 100 MG TAB PO SCH (10:03)
[2020-12-29] MEDS: predniSONE 20 MG TAB PO SCH (10:03)
[2020-12-29] MEDS: MULTIVITAMIN TAB PO SCH (10:03)
[2020-12-29] MEDS: PSEUDOEPHEDRINE HCL 30 MG TAB PO SCH (10:03)
[2020-12-29] MEDS: ADVANCED PROBIOTIC 1250 MG CAPSULE PO SCH (10:03)
[2020-12-29] MEDS: UMECLIDINIUM BROMIDE 62.5MCG/BLISTER 7 PUFFS/INHALER INH SCH (10:04)
[2020-12-29] MEDS: ENOXAPARIN INJ 40 MG/0.4 ML SYR SQ SCH (10:04)
[2020-12-29] MEDS: diphenhydrAMINE Capsule 25 MG CAP PO SCH (10:04)
[2020-12-29] MEDS: FLUTICASONE PROPIONATE NA SPR 16 GM BTL SCH (10:06)
[2020-12-29] MEDS: POLYETHYLENE (MIRALAX) 17 GM PACK PO PRN (10:11)
--- NOTE | 2020-12-29 13:33 | Hospitalist Progress Note ---
Date of Service December 29, 2020 Assessment & Plan (1) Asthma exacerbation: likely from being off Symbicort and Xolair, Pollen Allergy with Sinus Congestion CT chest no pneumonia, no PE placed on Symbicort, Solumedrol--> change to Prednisone taper, Nebs q4h Pulm consulted: added Incruse Ellipta, Singulair improved gradually wheezing resolved, weaned off oxygen on hospitdal day [address] Marina- patient's regular Pulm ff up with Dr. Marina 2-3 days after discharge discussed plan of care with patient emphasized strict adherence to above medications and ff up with Pulm she verbalized understanding and agreement Allergic Rhinitis started Flonase Pulm added Benadryl, Pseudophed d/c on Flonase, Pseudophed (2) Hypokalemia: resolved (3) Migraines: stable (4) Idiopathic intracranial hypertension: stable Disposition: d/c home ff up with Pulm this week PCP in 2 weeks plan of care discussed with patient in detail and at length all questions answered she is understanding, agreeable, comfortable with the plan of care Admission and Anticipated Discharge Date Admission Date: December 27, 2020 Subjective ff up for acute asthma exacerbation seen resting in bed, comfortable in good spirits on room air states she feels better overall breathing much improved occasional dry cough sinus congestion also better no chest pain no other symptoms states she is ready and would like to be discharged today Review of Systems Review of Systems: All systems reviewed & are unremarkable except as noted in Subjective Physical Exam Physical Exam: General- oriented x 3, not in distress, speaks in sentences with no effort or accessory muscle use Eyes- anicteric Neck- no JVD Lungs- clear BS bilaterally no rales/wheezing Heart- normal rate, regular rhythm; no murmurs Abdomen- normal bowel sounds, nondistended, soft, nontender Extremities- no pretibial edema, no calf tenderness Neuro- alert, oriented x 3; no gross focal neurologic deficits Skin- warm & dry Results & Data Results & Data ([facility]) Vital Signs (Past 12 Hours) Vital Signs Temp Pulse Pulse Pulse Resp BP Pulse Ox 12/29/20 11:33 36.8 C 80 20 105/71 98 12/29/20 11:21 83 16 98 12/29/20 07:51 36.8 C 76 18 117/73 97 12/29/20 07:26 57 L 16 98 12/29/20 07:00 60 12/29/20 03:19 56 L 14 98 12/29/20 03:18 36.8 C 63 18 104/66 95 all noted and reviewed including below (1) Asthma exacerbation Asthma persistence: unspecified Asthma severity: moderate Qualified Code(s): J45.901 - Unspecified asthma with (acute) exacerbation
--- NOTE | 2020-12-29 14:58 | Discharge Summary ---
Date of Service December 29, 2020 Admission HPI Per Admitting Provider Pt is 30 y/o F with PMH asthma with history of exacerbations, allergic rhinitis, GERD, idiopathic intracranial HTN, migraine, iron deficiency anemia presented to ER with complaint of shortness of breath and wheezing x2 days. Patient states 2 days ago started with increased chest tightness, increased shortness of breath and wheezing. Reports having dry cough. Denies fever, chills. Patient states has been using her albuterol nebulizer every 2 hours without much relief. Patient was getting Xolair injections every 4 weeks however last dose was October 2020. She felt like when she was on Xolair her asthma was much better controlled. Patient was seen in ER 12/25/2020 for asthma exacerbation with chest x-ray without acute infiltrate and was given Solu-Medrol 125 mg IV, hour-long albuterol treatment and was discharged home. Patient states shortly after returning home had increased shortness of breath and wheezing again and presented to ER today. Patient denies any ill contacts or known Covid exposures. Did not have COVID-19 vaccination. Denies fever/chills, diaphoresis, N/V/D/C, BOLANOS, dizziness, syncope, vision changes, neck pain, orthopnea, palpitations, hematemesis, sore throat, choking, otalgia, rhinorrhea, abdominal pain, paresthesias, weakness, extremity weakness, extremity edema, rashes, urinary symptoms. Admission Exam Per Admitting Provider Physical Exam: General: no distress, WDWN Head: normocephalic, atraumatic Eyes: conjunctiva non-injected, anicteric ENT: normal inspection external ears, nose, mucous membranes moist Neck: supple, trachea midline Lungs: +diminished breath sounds throughout with inspiratory and expiratory wheezing, no rhonchi/rales noted CV: RRR, no murmur, no pretibial edema Abd: normal BS, soft, non-tender Ext: no cyanosis, no calf tenderness Neuro: A&O x 3, no focal deficits noted, normal affect Skin: warm, dry Principal Diagnosis Acute Asthma Exacerbation Discharge Exam Physical Exam: General- oriented x 3, not in distress, speaks in sentences with no effort or accessory muscle use Eyes- anicteric Neck- no JVD Lungs- clear BS bilaterally no rales/wheezing good air entry bilaterally Heart- normal rate, regular rhythm; no murmurs Abdomen- normal bowel sounds, nondistended, soft, nontender Extremities- no pretibial edema, no calf tenderness Neuro- alert, oriented x 3; no gross focal neurologic deficits Skin- warm & dry Discharge Data Allergies Allergy/AdvReac Type Severity Reaction Status Date / Time Sulfa (Sulfonamide Allergy Intermediate Hives Verified 12/26/20 16:08 Antibiotics) sulfamethoxazole Allergy Intermediate HIVES Verified 12/26/20 16:08 trimethoprim Allergy Intermediate HIVES Verified 12/26/20 16:08 Bactrim Allergy Unknown HIVES Verified 11/29/17 22:58 Consultations 12/26/20 18:29 ED Decision to Admit Stat 12/27/20 10:55 Consult Pulmonology Routine Ordered Studies 12/26/20 20:51 CT angio chest PE protocol Urgent FINDINGS: There is adequate opacification within main pulmonary artery. Mild respiratory motion artifact limits evaluation of peripheral branches of the pulmonary artery. No pulmonary embolus is seen. No evidence of right heart strain. Main pulmonary artery is nondilated. Heart is normal in size without evidence of pericardial effusion. No coronary calcifications are seen. Nonpathological lymphadenopathy seen. Visualized portion of thyroid gland shows no evidence of focal lesions. Esophagus: Mild hiatal hernia. Tracheobronchial tree is patent. This study is performed during partial expiratory phase. Mild mosaic pattern of lung parenchymal attenuation likely related to expiratory phase. No large infiltrates or consolidative lesions are seen. No pleural effusion demonstrated. Limited evaluation of upper abdominal viscera shows no evidence of acute abnormalities. Osseous structures are unremarkable. IMPRESSION: 1. No evidence of pulmonary embolus. Evaluation of the peripheral branches of pulmonary artery is slightly limited due to respiratory motion artifact. 2. No large infiltrates or consolidative lesions. 3. Hiatal hernia. Hospital Course (1) Asthma exacerbation: likely from being off Symbicort and Xolair, Pollen Allergy with Sinus Congestion CT chest no pneumonia, no PE, small hiatal hernia placed on Symbicort, Solumedrol--> change to Prednisone taper: slow taper per Pulmonary SVC, Nebs q4h Pulm consulted: added Incruse Ellipta, Singulair improved gradually wheezing resolved, weaned off oxygen on hospitdal day [address] Marina- patient's regular Pulm ff up with Dr. Marina 2-3 days after discharge discussed plan of care with patient emphasized strict adherence to above medications and ff up with Pulm she verbalized understanding and agreement Allergic Rhinitis started Flonase Pulm added Benadryl, Pseudophed congestion improving d/c on Flonase, Pseudophed (2) Hypokalemia: resolved (3) Migraines: stable (4) Idiopathic intracranial hypertension: stable Disposition: d/c home ff up with Pulm this week PCP in 2 weeks plan of care discussed with patient in detail and at length all questions answered she is understanding, agreeable, comfortable with the plan of care Total Time Total Time Spent Total Time Spent (In Minutes): 45 minutes Discharge Plan Discharge Items Patient Disposition: Home - Self-Care Reason For Visit: SOB Discharge Diagnosis: ACUTE ASTHMA EXACERBATION Condition on Discharge: Good Activity: As commented below Activity Comment: RESUME ACTIVITY GRADUALLY TOLERATED Lifting: Wait until after follow-up appointment Exercise/Sports: Wait until after follow-up appointment Driving/Machine Use: NO DRIVING UNTIL RE-EVALUATED AND ALLOWED BY PRIMARY CARE PHYSICIAN Non-emergency contact: Primary Care Provider Call non-emergency contact if: you have any medication questions, your symptoms worsen, your pain is not controlled, your pain is worsening, your pain is unusual for you and your pain is concerning for you Follow-up/Referrals: Lynette Jroge DO [Primary Care Provider] - (Date & Time 01/01/2021 11:20 AM Provider Hunter Carnes DO Department Family [facility] ) Conrado Deluca MD [Outside Practitioners] - (Date & Time 01/01/2021 9:00 AM Provider [facility] PLEASE NOTE THAT THIS IS A TELEHEALTH APPOINTMENT. PLEASE FOLLOW THE INSTRUCTIONS PROVIDED IN YOUR EMAIL. IF YOU HAVE ANY QUESTIONS REGARDING THIS APPOINTMENT, PLEASE CALL ) Diet: Regular Addtl Attending Provider Instructions: PLEASE REVIEW YOUR NEW MEDICATION LIST AND FOLLOW INSTRUCTIONS CAREFULLY. INSTRUCTIONS FOR PREDNISONE 10MG/TABLET TAPER: TAKE 6 TABS (60 MG) DAILY X 7 DAYS, THEN TAKE 5 TABS (50 MG) DAILY X 7 DAYS, THEN TAKE 4 TABS (40 MG) DAILY X 7 DAYS, THEN TAKE 3 TABS (30 MG) DAILY X 7 DAYS, THEN TAKE 2 TABS (20 MG) DAILY X 7 DAYS, THEN TAKE 1TAB (10 MG) DAILY X 7 DAYS, THEN STOP (TAKE OMEPRAZOLE DAILY 30 MINUTES BEFORE 1ST MEAL OF THE DAY WHILE TAKING PREDNISONE TO PREVENT STOMACH ULCER.) CALL PRIMARY CARE PHYSICIAN OR RETURN TO THE ER IMMEDIATELY IF WITH WORSENING OF SYMPTOMS. FOLLOW UP WITH PRIMARY CARE PHYSICIAN AND CASEWORKER INTAKE SCHEDULED NEXT WEEK. Pending Studies at Discharge: No Stand-Alone Forms: [facility] [employer], Smoking Cessation Medications and DC Order Prescriptions: New pseudoephedrine HCl [Suphedrine] 30 mg Tablet 60 mg PO BID Qty: 10 RF: 0 montelukast [Singulair] 10 mg Tablet 10 mg PO DAILY Qty: 30 RF: 2 fluticasone propionate 50 mcg/actuation [place],Suspension 1 spray NA BID 7 Days Qty: 1 RF: 0 ipratropium bromide 0.02 % Solution 0.5 mg inhalation Q4H PRN (Reason: shortness of breath or wheezing) 30 Days RF: 0 levalbuterol HCl 1.25 mg/0.5 mL Solution For Nebulization 1.25 mg inhalation Q4H PRN (Reason: shortness of breath or wheezing) 30 Days RF: 0 guaifenesin [Mucinex] 600 mg Tablet Extended Release 12hr 600 mg PO Q12 Qty: 10 RF: 0 Incruse Ellipta 62.5 mcg/actuation Blister With Device 1 puff inhalation DAILY Qty: 1 RF: 2 prednisone 10 mg tablet 10 mg PO UD Qty: 147 RF: 0 omeprazole 20 mg capsule,delayed release(DR/EC) 20 mg PO DAILY Qty: 60 RF: 0 Continued topiramate 50 mg tablet 50 mg PO BID 30 Days Qty: 60 RF: 2 Xolair 150 mg recon soln 150 mg subcut UD RF: 0 albuterol sulfate 90 mcg/actuation HFA aerosol inhaler 2 puff inhalation Q4H PRN (Reason: Cough/Wheeze or SOB) RF: 0 multivitamin Tablet 1 tab PO QAM RF: 0 Probiotic 3 billion cell Capsule 3,000 mmu cells PO QAM RF: 0 albuterol sulfate 2.5 mg /3 mL (0.083 %) solution for nebulization 2.5 mg inhalation Q4H PRN (Reason: Wheezing) RF: 0 budesonide-formoterol [Symbicort] 160-4.5 mcg/actuation Hfa Aerosol Inhaler 2 puff INHALATION BID RF: 0 Discontinued prednisone 50 mg tablet 50 mg PO DAILY 5 Days Qty: 5 RF: 0 Discharge Orders: Discharge Order (Routine); Ordered 12/29/20 Ordered By: Matias Garcia Admission Data Admit Date/Time: 12/27/20 19:34 Attending Provider: Matias Garcia Admit Provider: Matias Garcia Primary Care Provider: Lynette Jorge Other Providers: Vito Casper ; Luis Gabriel Other Interventions: Discharge Summary Assessment (RN) Last Done: 12/29/20 13:51
== END 2020-12-29 16:23 | disposition home or self-care (01) ==
LOC: 2N 14:35 → ED 14:35 → 2N 21:45

== ENCOUNTER 2021-03-24 00:34 | Inpatient (IN) ==
[2021-03-24] MEDS ORDERED: methylPREDNISolone 125 MG/2 ML VIAL IV STA (00:49)
[2021-03-24] MEDS ORDERED: ALBUT/IPRATROP 3MG/0.5MG NEB 3 ML VIAL NEB ONE ×2 (00:54→07:27)
[2021-03-24] MEDS: MAGNESIUM SULFATE / D5W 1 GM/100 ML BAG IV SCH ×2 (00:59→01:14)
[2021-03-24] MEDS: SODIUM CHLORIDE 0.9% 500 ML IV SCH ×3 (01:06→12:02)
--- NOTE | 2021-03-24 01:06 | Emergency Department Note ---
History of Present Illness General Chief complaint: Respiratory Problems Stated complaint: DIFFICULTY BREATHING Time Seen by Provider: 03/24/21 00:42 Source: patient Mode of arrival: ambulatory Limitations: clinical acuity History of Present Illness Provider complaint: sob Onset (ago): day(s) Maximum Pain Intensity: 6 Exacerbated By: + movement Associated symptoms: + chest pain, + cough and + nausea/vomiting Treatments prior to arrival: other This is a 30-year-old female who presents with concern for worsening shortness of breath. Patient with a longstanding history of asthma and states this is not the worst asthma exacerbation she has had. Patient states she is slowly worsening over the last several days, was trying to use her inhaler at home as well as some leftover prednisone that she had. Patient was first diagnosed with asthma as a child. Is not a smoker. Has previously been intubated and admitted for her asthma. Denies any recent fevers or chills. Pt seen during a time of high acuity and national emergency pandemic while wearing PPE. Home Medications Medication Instructions Recorded Confirmed Type albuterol sulfate 90 mcg/actuation 2 puff INHALATION Q4H PRN 01/10/19 03/24/21 History aerosol inhaler lactobacillus combination no.4 3 3,000 mmu cells PO QAM 08/19/19 03/24/21 History billion cell capsule (Probiotic) multivitamin 1 tab PO QAM 08/19/19 03/24/21 History omalizumab 150 mg subcutaneous 150 mg SUBCUT UD 09/14/20 03/24/21 History solution (Xolair) topiramate 50 mg tablet 50 mg PO BID 30 Days #60 tab 11/30/20 03/24/21 Rx albuterol sulfate 2.5 mg INHALATION Q4H PRN 12/26/20 03/24/21 History budesonide-formoterol HFA 160 2 puff INHALATION BID 12/26/20 03/24/21 History mcg-4.5 mcg/actuation aerosol inhaler (Symbicort) montelukast 10 mg tablet 10 mg PO DAILY #30 tab 12/29/20 03/24/21 Rx (Singulair) omeprazole 20 mg capsule,delayed 20 mg PO DAILY #60 cap 12/29/20 03/24/21 Rx release umeclidinium 62.5 mcg/actuation 1 puff INHALATION DAILY #1 ea 12/29/20 03/24/21 Rx blister powder for inhalation (Incruse Ellipta) polyethylene glycol 3350 17 17 g PO DAILY 03/24/21 03/24/21 History gram/dose oral powder (Miralax) pseudoephedrine HCl 30 mg tablet 60 mg PO BID PRN 03/24/21 03/24/21 History (Suphedrine) Allergies Allergy/AdvReac Type Severity Reaction Status Date / Time Sulfa (Sulfonamide Allergy Intermediate Hives Verified 03/24/21 01:44 Antibiotics) sulfamethoxazole Allergy Intermediate HIVES Verified 03/24/21 01:44 trimethoprim Allergy Intermediate HIVES Verified 03/24/21 01:44 Past Med/Surg History Medical History Allergic rhinitis Asthma Demyelinating disease GERD (gastroesophageal reflux disease) Idiopathic intracranial hypertension NO MEDS AT CURRENT FOLLOW WITH [facility] Iron deficiency anemia Migraines Vocal cord dysfunction age 16 Surgical History History of bronchoscopy History of section X 2 History of dilatation and curettage History of esophagogastroduodenoscopy (EGD) History of Amadou fundoplication X 2- Family History Family/Other Family history of diabetes mellitus Father Asthma Grandmother (Paternal) Asthma Brother Cancer Grandfather (Maternal) Hypertension Brother Liver disease Mother Lupus Sister Family history of PCOS Aunt Spina bifida Social History Smoking Status: Never smoker Second Hand Exposure: No; Hx Alcohol Use: No Hx Substance Use: No Preferred Language: Bruneian Communication Ability: Effective 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 Beliefs That Will Affect Care: None marital status: Current Living Situation: Family Other Information That Helps Us Care for You: No Feels Safe at Home: Yes Safety Concerns: Feels Safe At This Time Assistive Devices: None Review of Systems A total of 10 systems reviewed and were otherwise negative All systems reviewed & are unremarkable except as noted in HPI & below Physical Exam Vital Signs Vital Signs - 24 hr 03/24/21 00:38 03/24/21 00:47 03/24/21 00:50 Temperature 36.2 C L Temperature Source Temporal Artery Scan Pulse Rate 79 Pulse Rate [Right Apical] Pulse Rate from SpO2 Sensor 103 H Respiratory Rate 24 Respiratory Effort / Characteristics Short of Breath Spontaneous Labored Short of Breath Respiratory Depth Normal Respiratory Pattern Tachypnea Blood Pressure 123/73 Blood Pressure Mean 89 Pulse Oximetry 97 95 Oxygen Delivery Method Room Air Sepsis Recent Fever Within 48 Hours No Sepsis New/Unexplained Change in Mental Status N/A Sepsis Action Taken by Nursing No Action Required 03/24/21 00:54 03/24/21 01:00 03/24/21 01:02 Temperature Temperature Source Pulse Rate 80 Pulse Rate [Right Apical] 81 Pulse Rate from SpO2 Sensor 80 Respiratory Rate 24 28 H Respiratory Effort / Characteristics Spontaneous Labored Short of Breath Respiratory Depth Respiratory Pattern Blood Pressure 113/78 Blood Pressure Mean 89 Pulse Oximetry 99 97 Oxygen Delivery Method Room Air Room Air Sepsis Recent Fever Within 48 Hours Sepsis New/Unexplained Change in Mental Status Sepsis Action Taken by Nursing 03/24/21 01:30 03/24/21 02:02 03/24/21 02:15 Temperature Temperature Source Pulse Rate 82 99 H Pulse Rate [Right Apical] Pulse Rate from SpO2 Sensor 85 99 H Respiratory Rate 24 25 H Respiratory Effort / Characteristics Respiratory Depth Respiratory Pattern Blood Pressure 111/68 123/70 Blood Pressure Mean 82 87 Pulse Oximetry 100 97 Oxygen Delivery Method Aerosol Mask Room Air Sepsis Recent Fever Within 48 Hours Sepsis New/Unexplained Change in Mental Status Sepsis Action Taken by Nursing 03/24/21 03:00 03/24/21 03:28 03/24/21 04:00 Temperature Temperature Source Pulse Rate 106 H 101 H Pulse Rate [Right Apical] 81 Pulse Rate from SpO2 Sensor 101 H 101 H Respiratory Rate 14 20 20 Respiratory Effort / Characteristics Spontaneous Respiratory Depth Respiratory Pattern Blood Pressure 110/60 Blood Pressure Mean 76 Pulse Oximetry 98 97 99 Oxygen Delivery Method Nasal Cannula Sepsis Recent Fever Within 48 Hours Sepsis New/Unexplained Change in Mental Status Sepsis Action Taken by Nursing 03/24/21 05:00 03/24/21 06:10 03/24/21 06:30 Temperature Temperature Source Pulse Rate 104 H 100 H 107 H Pulse Rate [Right Apical] Pulse Rate from SpO2 Sensor 104 H 107 H Respiratory Rate 18 22 18 Respiratory Effort / Characteristics Respiratory Depth Respiratory Pattern Blood Pressure 102/57 L 107/69 Blood Pressure Mean 72 81 Pulse Oximetry 99 96 98 Oxygen Delivery Method Sepsis Recent Fever Within 48 Hours Sepsis New/Unexplained Change in Mental Status Sepsis Action Taken by Nursing 03/24/21 07:00 03/24/21 07:30 03/24/21 07:43 Temperature Temperature Source Pulse Rate 95 H 98 H Pulse Rate [Right Apical] 108 H Pulse Rate from SpO2 Sensor 95 H Respiratory Rate 18 19 20 Respiratory Effort / Characteristics Spontaneous Respiratory Depth Respiratory Pattern Blood Pressure 115/64 93/51 L Blood Pressure Mean 81 65 Pulse Oximetry 95 100 Oxygen Delivery Method Room Air Sepsis Recent Fever Within 48 Hours Sepsis New/Unexplained Change in Mental Status Sepsis Action Taken by Nursing 03/24/21 08:01 Temperature Temperature Source Pulse Rate 109 H Pulse Rate [Right Apical] Pulse Rate from SpO2 Sensor 109 H Respiratory Rate 19 Respiratory Effort / Characteristics Respiratory Depth Respiratory Pattern Blood Pressure 97/49 L Blood Pressure Mean 65 Pulse Oximetry 100 Oxygen Delivery Method Sepsis Recent Fever Within 48 Hours Sepsis New/Unexplained Change in Mental Status Sepsis Action Taken by Nursing GENERAL: alert, uncomfortable appearing, well nourished, severe distress, increased work of breathing, tachypnea EYE EXAM: normal conjunctiva, PERRL and EOM's grossly intact OROPHARYNX: no exudate, no erythema, lips, buccal mucosa, and tongue normal and mucous membranes are moist NECK: supple, no nuchal rigidity, no adenopathy, non-tender LUNGS: Markedly diminished to auscultation. Increased work of breathing, tachypnea, faint bilateral expiratory scattered wheeze. HEART: no murmurs, S1 normal and S2 normal ABDOMEN: abdomen soft, non-tender, normo-active bowel sounds, no masses, no rebound or guarding. BACK: Back is symmetrical on inspection and there is no deformity, no midline tenderness, no CVA tenderness. SKIN: no rashes and no bruising UPPER EXTREMITIES: upper extremities are grossly normal. FROM, nml pulses b/l. LOWER EXTREMITIES: No pitting edema. FROM, nml pulses b/l. NEURO EXAM: Normal sensorium, cranial nerves II-XII grossly intact, normal speech, no gross weakness of arms, no gross weakness of legs. Gross sensation intact. Course Course 0100: Nebulizer treatment started by RT at bedside. Patient speaking in short phrases. 0145: Work of breathing is decreased, patient still very diminished bilaterally. 0235: Patient updated on labs and imaging. Does feel slightly improved on nebulizer treatment. 0326: Vital signs stable. Diminished breath sounds bilaterally yet although patient's work of breathing is less. 0411: We will order repeat continuous nebulizer as patient still markedly diminished and feeling as though she is tightening up again. 0522: Discussed options with mom given my concern for her overall condition. Patient now with scattered expiratory wheeze, although states she still feels as though she is not breathing well enough to be able to go home. Given significant asthma history we discussed my concerns for her overall condition. Patient is a single mom and concerned about the welfare of her children. She states she did contact her sister however she will not be appear until around 10 AM as she [place]. 0720: Discussed with Dr. Dean. Administered Medications Albuterol (Albuterol 0.083% Nebu Soln 3 Ml Vial) 2.5 mg NEB Q6R DAVID Stop: 04/23/21 12:59 Last Admin: 03/24/21 20:18 Dose: 2.5 mg Documented by: [id number] Admin: 03/24/21 13:13 Dose: 2.5 mg Documented by: [id number] Albuterol (Albuterol 0.083% Nebu Soln 3 Ml Vial) 2.5 mg NEB Q4H PRN PRN Reason: sob and wheezing Stop: 04/23/21 15:48 Last Admin: 03/24/21 16:26 Dose: 2.5 mg Documented by: [id number] Sodium Chloride (Nss 1000ml) 1,000 mls @ 80 mls/hr IV .[id number] DAVID Stop: 04/23/21 11:45 Last Infusion: 03/24/21 13:19 Dose: 80 mls/hr Documented by: [id number] Infusion: 03/24/21 13:10 Dose: 0 mls/hr Documented by: [id number] Admin: 03/24/21 13:03 Dose: 80 mls/hr Documented by: [id number] Methylprednisolone 40 mg/ (Syringe) 0.64 mls @ 1.5 mls/min IV Q8H DAVID Stop: 04/23/21 17:29 Last Admin: 03/24/21 17:16 Dose: 1.5 mls/min Documented by: [id number] Polyethylene Glycol (Polyethylene (Miralax) 17 Gm Pack) 17 gm PO DAILY DAVID Stop: 04/23/21 13:44 Last Admin: 03/24/21 14:03 Dose: 17 gm Documented by: [id number] Sodium Chloride (Sodium Chlor 7% 4 Ml Neb) 4 ml NEB BIDR DAVID Stop: 04/23/21 18:59 Last Admin: 03/24/21 20:20 Dose: Not Given Documented by: [id number] Topiramate (Topiramate 50 Mg Tab) 50 mg PO BID DAVID Stop: 04/23/21 20:59 Last Admin: 03/24/21 20:16 Dose: 50 mg Documented by: [id number] Discontinued Medications Albuterol (Albut/Ipratrop 3mg/0.5mg Neb 3 Ml Vial) 12 ml NEB ONE ONE Stop: 03/24/21 00:55 Last Admin: 03/24/21 01:07 Dose: 12 ml Documented by: [id number] Albuterol (Albuterol 0.083% Nebu Soln 3 Ml Vial) 10 mg NEB NOW STA Stop: 03/24/21 03:17 Last Admin: 03/24/21 03:23 Dose: 10 mg Documented by: [id number] Albuterol (Albut/Ipratrop 3mg/0.5mg Neb 3 Ml Vial) 12 ml NEB ONE ONE Stop: 03/24/21 07:28 Last Admin: 03/24/21 07:40 Dose: 12 ml Documented by: [id number] Cetirizine HCl (Cetirizine Hcl 10 Mg Tablet) 10 mg PO NOW ONE Stop: 03/24/21 07:28 Last Admin: 03/24/21 07:34 Dose: 10 mg Documented by: [id number] Magnesium Sulfate/Dextrose (Magnesium Sulfate / D5w) 1 gm in 100 mls @ 600 mls/hr IV Q10M DAVID Stop: 03/24/21 01:09 Last Infusion: 03/24/21 01:25 Dose: 0 mls/hr Documented by: [id number] Admin: 03/24/21 01:14 Dose: 600 mls/hr Documented by: [id number] Infusion: 03/24/21 01:10 Dose: 600 mls/hr Documented by: [id number] Admin: 03/24/21 00:59 Dose: 600 mls/hr Documented by: [id number] Sodium Chloride (Nss) 500 mls @ 125 mls/hr IV .Q4H DAVID Stop: 04/23/21 00:59 Last Admin: 03/24/21 12:02 Dose: Not Given Documented by: [id number] Admin: 03/24/21 06:46 Dose: Not Given Documented by: [id number] Infusion: 03/24/21 05:22 Dose: 0 mls/hr Documented by: [id number] Admin: 03/24/21 01:06 Dose: 125 mls/hr Documented by: [id number] Acetaminophen (Ofirmev) 1,000 mg in 100 mls @ 400 mls/hr IV NOW STA Stop: 03/24/21 01:38 Last Infusion: 03/24/21 01:50 Dose: 0 mls/hr Documented by: [id number] Admin: 03/24/21 01:29 Dose: 400 mls/hr Documented by: [id number] Methylprednisolone (Methylprednisolone 125 Mg/2 Ml Vial) 125 mg IV NOW STA Stop: 03/24/21 00:50 Last Admin: 03/24/21 00:59 Dose: 125 mg Documented by: [id number] Methylprednisolone (Methylprednisolone 40 Mg/Ml Vial) 40 mg IV Q8H DAVID Stop: 04/23/21 09:14 Last Admin: 03/24/21 09:31 Dose: 40 mg Documented by: [id number] Montelukast Sodium (Montelukast Sodium 10 Mg Tablet) 10 mg PO NOW ONE Stop: 03/24/21 07:28 Last Admin: 03/24/21 07:34 Dose: 10 mg Documented by: [id number] Critical Care Time Critical Care Time: Yes Total Critical Care Time: 72 Critical care of 72 min performed to assess and manage high likelihood of life- threatening dyspnea and severe asthma, involving labs and imaging performed with assessment to evaluate dyspnea and severe asthma diagnosis with frequent jose ssessment. This time includes bedside time, treatment discussions with patient/family/consultants, documentation time and excludes procedure time. Medical Decision Making Differential Diagnosis Differential diagnoses includes but is not limited to pneumonia, bronchitis, COPD/Asthma exacerbation, pneumothorax, pulmonary embolism, congestive heart failure, acute coronary syndrome Medical Records Attestation: I reviewed the patient's medical records. Home Medications Current Medication List: was personally reviewed by me Laboratory Data Attestation: I reviewed the patient's lab results. Result diagrams: 03/24/21 00:55 03/24/21 00:55 Lab Results 03/24/21 03/24/21 03/24/21 Range/Units 00:55 00:55 00:55 WBC 13.19 H (4.8-10.8) K/uL RBC 4.87 (4.2-5.4) M/uL Hgb 13.6 (12.0-16.0) g/dL Hct 40.3 (37-47) % MCV 82.8 (80-100) fL MCH 27.9 (25-34) pg MCHC 33.7 (32-36) g/dL RDW Std Deviation 46.5 H (36.4-46.3) fL RDW Coeff of Camryn 15.2 H (11.5-14.5) % Plt Count 390 (130-400) K/uL MPV 9.5 (7.4-10.4) fL Immature Gran % (Auto) 0.2 % Neut % (Auto) 62.1 % Lymph % (Auto) 26.1 % [place] % (Auto) 5.2 % Eos % (Auto) 5.8 % Baso % (Auto) 0.6 % Neut # (Auto) 8.20 H (1.4-6.5) K/uL Lymph # (Auto) 3.44 H (1.2-3.4) K/uL [place] # (Auto) 0.68 H (0.11-0.59) K/uL Eos # (Auto) 0.77 H (0-0.5) K/uL Baso # (Auto) 0.08 (0-0.2) K/uL Immature Gran # (Auto) 0.02 (0.00-0.02) K/uL Sodium 139 (136-145) mmol/L Potassium 3.8 (3.5-5.1) mmol/L Chloride 111 H (98-107) mmol/L Carbon Dioxide 25 (21-32) mmol/L Anion Gap 3.0 (3-11) BUN 15 (7-18) mg/dl Creatinine 0.87 (0.6-1.2) mg/dl Est Cr Clr Drug Dosing 85.9 ml/min Est GFR ( Amer) 104.3 ml/min Est GFR (Non-Af Amer) 90.0 ml/min BUN/Creatinine Ratio 17.2 (10-20) Glucose 98 (70-99) mg/dl Calcium 9.3 (8.5-10.1) mg/dl Total Bilirubin 0.2 (0.2-1) mg/dl AST 13 L (15-37) U/L ALT 24 (12-78) U/L Alkaline Phosphatase 78 (45-117) U/L Troponin I < 0.015 (0-0.045) ng/ml NT-Pro-B Natriuret Pep 30 (0-450) pg/ml Total Protein 7.7 (6.4-8.2) gm/dl Albumin 3.9 (3.4-5.0) gm/dl Globulin 3.8 (2.5-4.0) gm/dl Albumin/Globulin Ratio 1.0 (0.9-2) HCG, Qual Negative (Negative) COVID-19 Eval Order SARS-CoV-2 (PCR) (Negative) 03/24/21 03/24/21 Range/Units 00:57 00:57 WBC (4.8-10.8) K/uL RBC (4.2-5.4) M/uL Hgb (12.0-16.0) g/dL Hct (37-47) % MCV (80-100) fL MCH (25-34) pg MCHC (32-36) g/dL RDW Std Deviation (36.4-46.3) fL RDW Coeff of Camryn (11.5-14.5) % Plt Count (130-400) K/uL MPV (7.4-10.4) fL Immature Gran % (Auto) % Neut % (Auto) % Lymph % (Auto) % [place] % (Auto) % Eos % (Auto) % Baso % (Auto) % Neut # (Auto) (1.4-6.5) K/uL Lymph # (Auto) (1.2-3.4) K/uL [place] # (Auto) (0.11-0.59) K/uL Eos # (Auto) (0-0.5) K/uL Baso # (Auto) (0-0.2) K/uL Immature Gran # (Auto) (0.00-0.02) K/uL Sodium (136-145) mmol/L Potassium (3.5-5.1) mmol/L Chloride (98-107) mmol/L Carbon Dioxide (21-32) mmol/L Anion Gap (3-11) BUN (7-18) mg/dl Creatinine (0.6-1.2) mg/dl Est Cr Clr Drug Dosing ml/min Est GFR ( Amer) ml/min Est GFR (Non-Af Amer) ml/min BUN/Creatinine Ratio (10-20) Glucose (70-99) mg/dl Calcium (8.5-10.1) mg/dl Total Bilirubin (0.2-1) mg/dl AST (15-37) U/L ALT (12-78) U/L Alkaline Phosphatase (45-117) U/L Troponin I (0-0.045) ng/ml NT-Pro-B Natriuret Pep (0-450) pg/ml Total Protein (6.4-8.2) gm/dl Albumin (3.4-5.0) gm/dl Globulin (2.5-4.0) gm/dl Albumin/Globulin Ratio (0.9-2) HCG, Qual (Negative) COVID-19 Eval Order Covid19 at [facility] SARS-CoV-2 (PCR) NEGATIVE (Negative) ECG Data Attestation: I personally reviewed and interpreted this ECG as follows: Indication: + SOB/dyspnea Rate (beats per minute): 72 Rhythm: + normal sinus ECG Intervals/blocks: + Normal QRS and + Normal QT ECG [place]: + Normal ECG ST segments: + Normal ST segments MDM Narrative This is a 30-year-old female who presents with significant shortness of breath and a longstanding history of asthma. Patient has been trying to self medicate at home with additional nebulizer and MDI treatments as well as taking some leftover prednisone. Patient symptoms has continued to worsen over the last several days. She states seasonal allergies do typically affect her asthma has due any other inhaled perfume/chemicals. She has been unable to obtain one of the medications that previously was helping to control her symptoms as recommended by pulmonology due to a change in insurance. Patient denied any recent fevers or chills, no other known sick contacts. No risk factors for PE. Patient's labs and imaging reassuring. Patient was given multiple medications initially and RT called the bedside. High flow nasal cannula was brought to bedside however patient wished to try the continuous nebulizer first and given she was still maintaining oxygenation and able to speak in a few words at a time we gave her this opportunity. RT remained at bedside patient was rechecked freq unikki due to her acuity. Patient did have decreased work of breathing and appears slightly more comfortable after the continuous nebulizer and initial medications. Patient still markedly diminished on repeat lung exam. After that patient was able to give some additional history regarding her condition. Patient received IV Solu-Medrol, IV magnesium. She did then subsequently received a second continuous nebulizer treatment. Following the second she did have some scattered wheezing. Patient reports she feels well during the treatment however feels that she very quickly tightens down and has increased trouble breathing again as the medication begins to wear off. At this time I do not suspect other infectious etiology, PE, ACS, tamponade, myocarditis/pericarditis, or CHF contributing to her shortness of breath. Patient with a longstanding history of severe asthma and frequent hospi talizations. Patient has previously been intubated. An order was placed for continuous cardiac monitoring. The monitor shows a rate of _95_ with _normal sinus_ rhythm. Impression & Plan Dyspnea, Asthma exacerbation Discharge Plan Visit Data Chief Complaint: Respiratory Problems Stated Complaint: DIFFICULTY BREATHING ED Provider: Chelsey Avila Discharge Problem: Dyspnea, Asthma exacerbation Patient Disposition: Admitted As Inpatient Discharge Instructions Interventions: ED Discharge Assessment Last Done: 03/24/21 11:13 Discharge Problem: Dyspnea Qualifiers: Dyspnea type: acute respiratory distress Qualified Code(s): R06.03 - Acute respiratory distress Asthma exacerbation Qualifiers: Asthma severity: severe Asthma persistence: persistent Qualified Code(s): J45.51 - Severe persistent asthma with (acute) exacerbation
[2021-03-24 01:09] LABS: Basophils # (auto) 0.08 K/uL (0-0.2); Basophils % (auto) 0.6 %; Eosinophils # (auto) 0.77 K/uL (0-0.5); Eosinophils % (auto) 5.8 %; Hematocrit (blood only) 40.3 % (37-47); Hemoglobin 13.6 g/dL (12.0-16.0); Immature Granulocytes # (auto) 0.02 K/uL (0.00-0.02); Immature Granulocytes % (auto) 0.2 %; Lymphocytes # (auto) 3.44 K/uL (1.2-3.4); Lymphocytes % (auto) 26.1 %; Mean Corpuscular Hemoglobin 27.9 pg (25-34); Mean Corpuscular Hgb Conc 33.7 g/dL (32-36); Mean Corpuscular Volume 82.8 fL (80-100); Mean Platelet Volume 9.5 fL (7.4-10.4); Monocytes # (auto) 0.68 K/uL (0.11-0.59); Monocytes % (auto) 5.2 %; Neutrophils % (auto) 62.1 %; Platelet Count 390 K/uL (130-400); RDW Coefficient of Variation 15.2 % (11.5-14.5); RDW Standard Deviation 46.5 fL (36.4-46.3); Red Blood Count 4.87 M/uL (4.2-5.4); White Blood Count 13.19 K/uL (4.8-10.8)
[2021-03-24] MEDS ORDERED: ACETAMINOPHEN 1,000 MG/100 ML VIAL IV STA (01:24)
[2021-03-24 01:28] LABS: Alanine Aminotransferase 24 U/L (12-78); Albumin Level 3.9 gm/dl (3.4-5.0); Aspartate Aminotransferase 13 U/L (15-37); BUN Creatinine Ratio 17.2 (10-20); Blood Urea Nitrogen 15 mg/dl (7-18); Calcium 9.3 mg/dl (8.5-10.1); Carbon Dioxide 25 mmol/L (21-32); Chloride 111 mmol/L (98-107); Creatinine Clr Calc Pharmacy 85.9 ml/min; Est GFR (African American) 104.3 ml/min; Glucose 98 mg/dl (70-99); Potassium 3.8 mmol/L (3.5-5.1); Sodium 139 mmol/L (136-145)
[2021-03-24 01:30] LABS: Alkaline Phosphatase 78 U/L (45-117); Bilirubin,Total 0.2 mg/dl (0.2-1); Globulin 3.8 gm/dl (2.5-4.0); NT Pro B Type Natriuretic Pept 30 pg/ml (0-450); Total Protein 7.7 gm/dl (6.4-8.2); Troponin I < 0.015 ng/ml (0-0.045)
[2021-03-24 01:31] LABS: Pregnancy Test, Serum Negative (Negative)
[2021-03-24] MEDS ORDERED: ALBUTEROL 0.083% NEBU SOLN 3 ML VIAL NEB STA (03:16)
[2021-03-24] MEDS ORDERED: CETIRIZINE HCL 10 MG TABLET PO ONE (07:27)
[2021-03-24] MEDS ORDERED: MONTELUKAST SODIUM 10 MG TABLET PO ONE (07:27)
--- NOTE | 2021-03-24 08:13 | XRay Report ---
XR chest 1V portable HISTORY: 30 years-old Female sob acute shortness of breath COMPARISON: Chest radiograph 12/25/2020 TECHNIQUE: Portable AP view the chest FINDINGS: The cardiomediastinal and hilar silhouettes are within normal limits. No pneumothorax, pleural effusi on, airspace consolidation or overt pulmonary edema. The bones of the chest appear normal. IMPRESSION: No acute process. ACT 112: Negative or not required by law. The above report was generated using voice recognition software. It may contain grammatical, syntax o r spelling errors. Electronically signed by: Suraj Cornejo M.D. 03/24/2021 8:12 AM
--- NOTE | 2021-03-24 09:17 | History & Physical Report ---
Date of Service March 24, 2021 Assessment & Plan (1) Asthma exacerbation: Plan: -Admit to [facility] with telemetry -Patient presenting from home with reports of worsening shortness of breath and wheezing x 1 week despite use of prednisone and rescue inhaler -In the ED, received 3 nebulizer treatments and Solu-Medrol 125 mg IV and continues to have wheezing -Saturating well on room air -Continue Solu-Medrol 40 mg IV q8h, scheduled nebs -Ensure patient has inhalers at discharge, keep appointment for Xolair injection -Pulmonary consult, input appreciated (2) DVT prophylaxis: Plan: -SCDs History of Present Illness Chief Complaint: Shortness of breath, wheezing Primary Care Provider: Lynette Jorge DO 30-year-old female with PMH asthma, GERD, idiopathic intracranial hypertension, migraines, and other problems listed below who presents the ED for evaluation of shortness of breath and wheezing. Patient reports symptoms have been ongoing for the past 1 week. She has been on prednisone and increased rescue inhaler use without any improvement. Denies productive cough. No fevers or chills. Denies chest pain. No lightheadedness, dizziness, diaphoresis, syncopal events. Denies abdominal pain, nausea, vomiting, diarrhea. No urinary symptoms. In the ED, patient received 3 nebulizer treatments and IV Solu-Medrol and continues to have wheezing on exam. She is saturating well on room air. Labs are unremarkable. Allergies Allergy/AdvReac Type Severity Reaction Status Date / Time Sulfa (Sulfonamide Allergy Intermediate Hives Verified 03/24/21 01:44 Antibiotics) sulfamethoxazole Allergy Intermediate HIVES Verified 03/24/21 01:44 trimethoprim Allergy Intermediate HIVES Verified 03/24/21 01:44 Home Medications Medication Instructions Recorded Confirmed Type albuterol sulfate 90 mcg/actuation 2 puff INHALATION Q4H PRN 01/10/19 03/24/21 History aerosol inhaler lactobacillus combination no.4 3 3,000 mmu cells PO QAM 08/19/19 03/24/21 History billion cell capsule (Probiotic) multivitamin 1 tab PO QAM 08/19/19 03/24/21 History omalizumab 150 mg subcutaneous 150 mg SUBCUT UD 09/14/20 03/24/21 History solution (Xolair) topiramate 50 mg tablet 50 mg PO BID 30 Days #60 tab 11/30/20 03/24/21 Rx albuterol sulfate 2.5 mg INHALATION Q4H PRN 12/26/20 03/24/21 History budesonide-formoterol HFA 160 2 puff INHALATION BID 12/26/20 03/24/21 History mcg-4.5 mcg/actuation aerosol inhaler (Symbicort) montelukast 10 mg tablet 10 mg PO DAILY #30 tab 12/29/20 03/24/21 Rx (Singulair) omeprazole 20 mg capsule,delayed 20 mg PO DAILY #60 cap 12/29/20 03/24/21 Rx release umeclidinium 62.5 mcg/actuation 1 puff INHALATION DAILY #1 ea 12/29/20 03/24/21 Rx blister powder for inhalation (Incruse Ellipta) polyethylene glycol 3350 17 17 g PO DAILY 03/24/21 03/24/21 History gram/dose oral powder (Miralax) pseudoephedrine HCl 30 mg tablet 60 mg PO BID PRN 03/24/21 03/24/21 History (Suphedrine) azithromycin 250 mg tablet 250 mg PO Q24H 30 Days #30 tab 04/01/21 Rx prednisone 10 mg tablet 10 mg PO UD #60 tab 04/01/21 Rx tiotropium bromide 1.25 2 inh INHALATION DAILY #4 g 04/01/21 Rx mcg/actuation mist for inhalation (Spiriva Respimat) Past Med/Surg History Medical History (Updated 03/27/21 @ 14:05 by Ashu Jacobsen MD) Allergic rhinitis Allergic rhinitis Asthma Demyelinating disease GERD (gastroesophageal reflux disease) GERD (gastroesophageal reflux disease) Idiopathic intracranial hypertension NO MEDS AT CURRENT FOLLOW WITH [facility] – [place] Iron deficiency anemia Migraines Severe persistent asthma dependent on systemic steroids with acute exacerbation Shortness of breath Vocal cord dysfunction age 16 Surgical History History of bronchoscopy History of section X 2 History of dilatation and curettage History of esophagogastroduodenoscopy (EGD) History of Amadou fundoplication X 2- Family History Family/Other Family history of diabetes mellitus Father Asthma Grandmother (Paternal) Asthma Brother Cancer Grandfather (Maternal) Hypertension Brother Liver disease Mother Lupus Sister Family history of PCOS Aunt Spina bifida Social History Smoking Status: Never smoker Second Hand Exposure: No; Hx Alcohol Use: No Hx Substance Use: No Preferred Language: Upper Sorbian Communication Ability: Effective 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 Beliefs That Will Affect Care: None marital status: Current Living Situation: Family Feels Safe at Home: Yes Assistive Devices: None Review of Systems Review of Systems: ROS per HPI, all other systems reviewed and negative Physical Exam Constitutional: WD/WN, vitals as above Eyes: PERRL, conjunctivae normal, anicteric sclerae ENMT: external ear and nose normal, oropharynx normal Respiratory: normal respiratory effort; no respiratory distress Auscultation: + wheezes (Throughout all lung sagastume, inspiratory and expiratory) Cardiovascular: Rate/Rhythm: regular rhythm and + tachycardic Vessels: normal peripheral pulses Extremities: no edema Gastrointestinal (Abdomen): normal bowel sounds, soft, nontender, no hepatosplenomegaly Musculoskeletal: no cyanosis or clubbing, extremities motor strength 5/5 Skin: no rashes, warm and dry Neurologic: PERRL, EOMI, accommodation nl, no face palsy, no dysarthria Psychiatric: A+Ox3, euthymic affect Results & Data Results & Data ([facility]) Vital Signs (Past 12 Hours) Vital Signs Temp Pulse Pulse Resp BP Pulse Ox 03/24/21 08:30 110 H 24 93/46 L 100 03/24/21 08:01 109 H 19 97/49 L 100 03/24/21 07:43 108 H 20 100 03/24/21 07:30 98 H 19 93/51 L 03/24/21 07:00 95 H 18 115/64 95 03/24/21 06:30 107 H 18 107/69 98 03/24/21 06:10 100 H 22 102/57 L 96 03/24/21 05:00 104 H 18 99 03/24/21 04:00 101 H 20 99 03/24/21 03:28 81 20 97 03/24/21 03:00 106 H 14 110/60 98 03/24/21 02:15 123/70 03/24/21 02:02 99 H 25 H 97 03/24/21 01:30 82 24 111/68 100 03/24/21 01:02 81 28 H 97 03/24/21 01:00 80 24 113/78 99 03/24/21 00:47 95 03/24/21 00:38 36.2 C L 79 24 123/73 97 Laboratory Results Short CBC 03/24/21 Range/Units 00:55 WBC 13.19 H (4.8-10.8) K/uL Hgb 13.6 (12.0-16.0) g/dL Hct 40.3 (37-47) % Plt Count 390 (130-400) K/uL BMP 03/24/21 00:55 Sodium 139 Potassium 3.8 Chloride 111 H Carbon Dioxide 25 BUN 15 Creatinine 0.87 Glucose 98 Calcium 9.3 Cardiac Enzymes 03/24/21 Range/Units 00:55 Troponin I < 0.015 (0-0.045) ng/ml Liver Function 03/24/21 Range/Units 00:55 Total Bilirubin 0.2 (0.2-1) mg/dl AST 13 L (15-37) U/L ALT 24 (12-78) U/L Alkaline Phosphatase 78 (45-117) U/L Albumin 3.9 (3.4-5.0) gm/dl Diagnostic Findings Chest X-Ray 03/24/21 00:49 XR chest 1V portable HISTORY: 30 years-old Female sob acute shortness of breath COMPARISON: Chest radiograph 12/25/2020 TECHNIQUE: Portable AP view the chest FINDINGS: The cardiomediastinal and hilar silhouettes are within normal limits. No pneumothorax, pleural effusion, airspace consolidation or overt pulmonary edema. The bones of the chest appear normal. IMPRESSION: No acute process. ACT 112: Negative or not required by law. The above report was generated using voice recognition software. It may contain grammatical, syntax or spelling errors. Electronically signed by: Suraj Cornejo M.D. 03/24/2021 8:12 AM Code Status & VTE Plan VTE Prophylaxis Plan VTE Prophylaxis will be ordered: Yes Supervising Physician Co-Signing Physician Notes Pt was seen and examined. Agreed with Daina MARTE exam, assessment and plan. 30-year-old female with PMH asthma, GERD, idiopathic intracranial hypertension, migraines presents the ED for evaluation of worsening shortness of breath and wheezing. Pt said that she has been having symptoms for about 1 week. She said that she took prednisone and has been nebulizer treatment about q1h with no relief. She said that she was trying to avoid to come to the hospital because she does not have any childcare. She said that when she coughs that she is unable to bring the phlegm up. Denies chest pain, lightheadedness, dizziness, diaphoresis, syncopal events. In the ED, patient received 3 nebulizer treatments and IV Solu-Medrol and continues to have wheezing on exam. CT chest showed no acute process. Will continue IV steroid, neb treatment and flutter valve. Will consult pulm. Continue monitor closely. MD Nabeel (1) Asthma exacerbation Asthma persistence: unspecified Asthma severity: moderate Qualified Code(s): J45.901 - Unspecified asthma with (acute) exacerbation
--- NOTE | 2021-03-24 09:37 | Electrocardiogram Report ---
Test Reason : Blood Pressure : / mmHG Vent. Rate : 072 BPM Atrial Rate : 072 BPM P-R Int : 136 ms QRS Dur : 080 ms QT Int : 368 ms P-R-T Axes : 042 007 027 degrees QTc Int : 402 ms Normal sinus rhythm Nonspecific ST and T wave abnormality Abnormal ECG When compared with ECG of 08-JAN-2021 09:17, Nonspecific T wave abnormality has replaced inverted T waves in Inferior leads Confirmed by Jose L Austin ([id number]) on 03/24/2021 9:37:43 AM Referred By: REFERRED SELF Confirmed By:Jose L Austin
[2021-03-24] MEDS ORDERED: ACETAMINOPHEN 325 MG TAB PO PRN (11:46)
[2021-03-24] MEDS: SODIUM CHLORIDE 0.9% 1000ML 1,000 ML IV SCH (13:03)
[2021-03-24] MEDS: ALBUTEROL 0.083% NEBU SOLN 3 ML VIAL NEB SCH ×2 (13:13→20:18)
[2021-03-24] MEDS: POLYETHYLENE (MIRALAX) 17 GM PACK PO SCH (14:03)
[2021-03-24] MEDS: ALBUTEROL 0.083% NEBU SOLN 3 ML VIAL NEB PRN (16:26)
[2021-03-24] MEDS: methylPREDNISolone 40 MG in SYRINGE 0 ML IV SCH (17:16)
[2021-03-24] MEDS: TOPIRAMATE 50 MG TAB PO SCH (20:16)
[2021-03-24] MEDS: SODIUM CHLOR 7% 4 ML NEB NEB SCH (20:20)
[2021-03-25] MEDS: SODIUM CHLORIDE 0.9% 1000ML 1,000 ML IV SCH ×2 (00:04→12:32)
[2021-03-25] MEDS: methylPREDNISolone 40 MG in SYRINGE 0 ML IV SCH ×3 (01:29→18:28)
[2021-03-25] MEDS: ALBUTEROL 0.083% NEBU SOLN 3 ML VIAL NEB SCH ×6 (01:33→21:54)
[2021-03-25] MEDS: SODIUM CHLOR 7% 4 ML NEB NEB SCH (07:21)
[2021-03-25 08:20] LABS: Hematocrit (blood only) 38.5 % (37-47); Hemoglobin 12.8 g/dL (12.0-16.0); Mean Corpuscular Hemoglobin 27.6 pg (25-34); Mean Corpuscular Hgb Conc 33.2 g/dL (32-36); Mean Platelet Volume 9.7 fL (7.4-10.4); Platelet Count 355 K/uL (130-400); RDW Coefficient of Variation 15.8 % (11.5-14.5); RDW Standard Deviation 47.7 fL (36.4-46.3); Red Blood Count 4.64 M/uL (4.2-5.4); White Blood Count 21.02 K/uL (4.8-10.8)
[2021-03-25 08:37] LABS: BUN Creatinine Ratio 16.4 (10-20); Calcium 9.2 mg/dl (8.5-10.1); Creatinine Clr Calc Pharmacy 39.5 ml/min; Est GFR (African American) 110.4 ml/min; Est GFR (Non-African American) 95.3 ml/min; Potassium 3.9 mmol/L (3.5-5.1)
[2021-03-25] MEDS: PANTOprazole 40 MG TAB PO SCH (09:54)
[2021-03-25] MEDS: UMECLIDINIUM BROMIDE 62.5MCG/BLISTER 7 PUFFS/INHALER INH SCH (09:54)
[2021-03-25] MEDS: MONTELUKAST SODIUM 10 MG TABLET PO SCH (09:54)
[2021-03-25] MEDS: TOPIRAMATE 50 MG TAB PO SCH ×2 (09:54→20:06)
[2021-03-25] MEDS: FLUTICASONE/VILANTEROL 200/25MCG 14 PUFFS/INHALER INH SCH (09:55)
[2021-03-25] MEDS: POLYETHYLENE (MIRALAX) 17 GM PACK PO SCH (09:59)
[2021-03-25] MEDS: ALBUTEROL 0.083% NEBU SOLN 3 ML VIAL NEB PRN (11:09)
--- NOTE | 2021-03-25 14:42 | Critical Care Consultation ---
Date of Consultation March 25, 2021 Assessment & Plan (1) Severe persistent asthma dependent on systemic steroids with acute exacerbation: 30-year-old -[place] female with a past medical history of severe GERD status post Amadou fundoplication x2, severe persistent eosinophilic asth ma, vocal cord dysfunction and chronic allergic rhinitis presenting to the hospital due to an asthma exacerbation. Severe persistent, eosinophilic mediated asthma: She has profound symptoms at baseline and her asthma is poorly controlled. She is nearly on maximal therapy. Unfortunately, she has run into issues with her insurance with Xolair therapy. She missed her Rufina dose. She has been around on a prolonged taper of prednisone. She is currently on 20 mg daily at home. She took 120 mg of prednisone prior to arriving to the hospital. I think she would be an excellent candidate for mepolizumab therapy. Her eosinophil count was very elevated despite being on prednisone. I also think she would likely be a good candidate for steroid sparing agents given the high dose requirements of prednisone she is on chronically. She is at risk for significant complications moving forward if she remains on chronic prednisone therapy. We can consider starting her on methotrexate as an outpatient to be utilized as a steroid sparing agent. I would also recommend initiating the patient on a 4 to 6-week trial of azithromycin 250 mg daily for 5 days a week. Her QTc interval is 402 ms which is acceptable. I have ordered for azithromycin to be started as an inpatient. Additionally, I think she should be vaccinated against COVID-19 as soon as possible. Her being immunocompromised places her at significant risk for complications from a COVID-19 infection. I do not think that immunosuppression is a relative contraindication in her case, but rather is in fact a clear indication for her to get vaccinated. She would also be eligible for a booster vaccine after her 2 dose vaccination sequence. This was relayed to the patient. I think she should have close follow-up with allergy and immunology especially given the consideration of starting her on anti-IgE/antiinterleukin therapy. While in the hospital she can remain on the IV Solu-Medrol dose that she is currently on and we can wean her down to oral steroids. She can be weaned down likely in the next 1 to 2 days to 60 mg of p.o. prednisone. She is at risk for PJP and the use of Bactrim should be considered as prophylaxis while on doses of greater than 20 mg (or equivalent) of prednisone for more than 2 weeks. Continue her current dose of ICS/LABA/LAMA combination. I have increased her dose of albuterol to every 2 hours. I am checking a BMP at 6 PM to keep an eye on her potassium levels. GERD: Her GERD symptoms should be aggressively controlled with antireflux medicine. Allergic symptoms: Continue antihistamine and montelukast. She should have an appointment scheduled with her resource conservationist within 5 to 7 days of discharge. Thank you for the consultation. We will continue to follow along with you closely. (2) Asthma exacerbation: (3) GERD (gastroesophageal reflux disease): (4) Shortness of breath: History of Present Illness Reason for Consultation: Asthma exacerbation Attending Physician: Aaron Lees MD History of Present Illness 30-year-old female with a past medical history of severe persistent asthma with eosinophilia, elevated IgE levels, chronic allergic rhinitis, GERD (Amadou fundoplication x2), obesity and vocal cord dysfunction presenting to the hospital due to increasing shortness of breath. She was previously on Xolair and was doing well on Xolair. She missed her Xolair injection in February due to insurance problems. Her current inhalers are high dose Symbicort, Incruse Ellipta and as needed albuterol. She is also on Atrovent nasal sprays, Flonase and Singulair. She follows with Dr. Marina of [facility] pulmonology. Her last IgE level was 149 on 05/07/2018. Her peripheral eosinophil count was elevated to 770 during this admission. Her chest x-ray was interpreted as negative. Chest CTA completed on 12/26/2020 demonstrated a small hiatal hernia. Mild mosaic pattern was noted. Her last spirometry was on 03/27/2028 [facility]. Her FEV1 at that time was 1.79 L which is 54% predicted prebronchodilator. She had a 42% increase postbronchodilator and her FEV1 improved to 2.55 L. Her postbronchodilator FEV1 was 76% predicted. She is currently on methylprednisone 40 mg, 3 times daily. She notes that she is normally on albuterol every 2 hours at least while in the hospital. She felt that her breathing was actually worse last night. She was using her own rescue inhaler as she did not feel that she was getting albuterol frequently enough. She does have a cough. Her breathing feels a little better today. She relates a very long history of asthma dating back to when she was first born. She was born at 33 weeks and had a very significant aspiration event. Throughout her life she has had several aspiration pneumonias. She was intubated twice. She notes she has "flash attacks" where she will occasionally pass out and become short of breath. These have been occurring with increasing frequency. She has 3 children at home. 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 She received most of her care at [facility] from childhood until the age of [age] years old. Bronchial thermoplasty was considered in the past, but she was deemed a poor candidate due to the frequency of her exacerbations and the severity of her airflow obstruction. She denies any significant GERD symptoms at present. Allergies Allergy/AdvReac Type Severity Reaction Status Date / Time Sulfa (Sulfonamide Allergy Intermediate Hives Verified 03/24/21 01:44 Antibiotics) sulfamethoxazole Allergy Intermediate HIVES Verified 03/24/21 01:44 trimethoprim Allergy Intermediate HIVES Verified 03/24/21 01:44 Home Medications Medication Instructions Recorded Confirmed Type albuterol sulfate 90 mcg/actuation 2 puff INHALATION Q4H PRN 01/10/19 03/24/21 History aerosol inhaler lactobacillus combination no.4 3 3,000 mmu cells PO QAM 08/19/19 03/24/21 History billion cell capsule (Probiotic) multivitamin 1 tab PO QAM 08/19/19 03/24/21 History omalizumab 150 mg subcutaneous 150 mg SUBCUT UD 09/14/20 03/24/21 History solution (Xolair) topiramate 50 mg tablet 50 mg PO BID 30 Days #60 tab 11/30/20 03/24/21 Rx albuterol sulfate 2.5 mg INHALATION Q4H PRN 12/26/20 03/24/21 History budesonide-formoterol HFA 160 2 puff INHALATION BID 12/26/20 03/24/21 History mcg-4.5 mcg/actuation aerosol inhaler (Symbicort) montelukast 10 mg tablet 10 mg PO DAILY #30 tab 12/29/20 03/24/21 Rx (Singulair) omeprazole 20 mg capsule,delayed 20 mg PO DAILY #60 cap 12/29/20 03/24/21 Rx release umeclidinium 62.5 mcg/actuation 1 puff INHALATION DAILY #1 ea 12/29/20 03/24/21 Rx blister powder for inhalation (Incruse Ellipta) polyethylene glycol 3350 17 17 g PO DAILY 03/24/21 03/24/21 History gram/dose oral powder (Miralax) pseudoephedrine HCl 30 mg tablet 60 mg PO BID PRN 03/24/21 03/24/21 History (Suphedrine) Patient History Medical History (Updated 03/25/21 @ 16:07 by Ashu Jacobsen MD) Allergic rhinitis Asthma Demyelinating disease GERD (gastroesophageal reflux disease) GERD (gastroesophageal reflux disease) Idiopathic intracranial hypertension NO MEDS AT CURRENT FOLLOW WITH [facility] Iron deficiency anemia Migraines Severe persistent asthma dependent on systemic steroids with acute exacerbation Shortness of breath Vocal cord dysfunction age 16 Surgical History History of bronchoscopy History of section X 2 History of dilatation and curettage History of esophagogastroduodenoscopy (EGD) History of Amadou fundoplication X 2- Family History Family/Other Family history of diabetes mellitus Father Asthma Grandmother (Paternal) Asthma Brother Cancer Grandfather (Maternal) Hypertension Brother Liver disease Mother Lupus Sister Family history of PCOS Aunt Spina bifida Social History Smoking Status: Never smoker Second Hand Exposure: No; Hx Alcohol Use: No Hx Substance Use: No Preferred Language: Mohawk Communication Ability: Effective 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 Physical Exam Physical Exam: Constitutional: Patient appears to be of their stated age. Patient is in no apparent distress. Patient is well-developed. Raspy voice. Eyes: Pupils are equal round and reactive to light. Conjunctivae are normal. Anicteric sclera. Ears nose, mouth and throat: Mallampati class 2. Normal posterior oropharynx. Uvula is midline. Neck: Trachea is midline. Visual inspection is normal. Respiratory: Prolonged phase of exhalation. Expiratory wheezes in all lobes. Cardiovascular: Regular rate and rhythm. No murmurs. No edema. Gastrointestinal: Normal bowel sounds, soft, nontender and nondistended. No hepatosplenomegaly noted. Musculoskeletal: No cyanosis. Patient is able to move all extremities. Strength is 5 out of 5 in the upper and lower extremities. Skin: No rashes, warm dry and intact. Neurologic: No obvious focal neurological deficits seen. Psychiatric: Alert and oriented x3 with a euthymic affect. Results & Data Results & Data ([facility]) Vital Signs (Past 12 Hours) Vital Signs Temp Pulse Pulse Resp BP Pulse Ox 03/25/21 11:19 98.6 F 80 18 112/56 L 96 03/25/21 11:10 90 18 97 03/25/21 08:00 98.6 F 95 H 20 110/59 L 96 03/25/21 07:45 84 03/25/21 07:28 59 L 16 97 03/25/21 03:37 98.6 F 62 18 99/61 L 96 Vital signs, labs and imaging personally reviewed Coding Level of Care Code 13679 Inpt Consult Level 5 Diagnoses Asthma exacerbation J45.901 Asthma persistence: unspecified Asthma severity: moderate Severe persistent asthma dependent on systemic steroids with acute exacerbation J45.51; Z79.52 GERD (gastroesophageal reflux disease) K21.9 Shortness of breath R06.02 Time Spent (min) 90 (1) Asthma exacerbation Asthma persistence: unspecified Asthma severity: moderate Qualified Code(s): J45.901 - Unspecified asthma with (acute) exacerbation
[2021-03-25] MEDS ORDERED: ALBUTEROL 0.083% NEBU SOLN 3 ML VIAL NEB SCH (15:00)
[2021-03-25] MEDS ORDERED: ALBUTEROL 0.083% NEBU SOLN 3 ML VIAL NEB PRN (16:00)
--- NOTE | 2021-03-25 17:35 | Hospitalist Progress Note ---
Date of Service March 25, 2021 Assessment & Plan (1) Asthma exacerbation: Plan: Present on admission with worsening shortness of breath despite use of prednisone and albuterol nebulizer treatment Chest x-ray showed no acute finding Patient said before she came to the ER she took prednisone 120 mg x 1 and had 3 nebulizer treatment In the ER received 3 nebulizer treatments and Solu-Medrol 125 mg IV Currently on IV Solu-Medrol 40 mg every 8 hour Pulmonology on board Pulm recommended steroid sparing agent due to the chronic high-dose steroid. She might need to consider methotrexate as an outpatient will be utilized as a steroid sparing agent and also start on a trial of azithromycin 250 mg daily for 5 days a week for 4 to 6 weeks Continue neb treatment Continue to monitor closely Recommend close follow-up with home in 5 to 7 days Patient was educated and advised about taking the COVID 19 vaccine (2) DVT prophylaxis: Plan: -SCDs Admission and Anticipated Discharge Date Admission Date: March 24, 2021 Subjective Patient was seen and examined for follow-up of shortness of breath Lying in bed with no acute respiratory distress Patient said that she had a worse night because she was getting the neb treatment every 4 to 6 hours She said that after 3 hours she has some difficulty breathing She said at home she usually gives herself a treatment every 45 minutes Denies any chest pain, palpitation, dizziness, and fever. Physical Exam Physical Exam: General- No acute distress Head- atraumatic Eyes- PERRL, EOMI, ENT- oropharynx clear Neck- supple, no JVD Lungs- expiratory wheezing Heart- +tacycardia; no murmur Abdomen- normal bowel sounds, soft, nontender Extremities- no calf tenderness Neuro- alert, oriented x 3; PERRL, EOMI; no facial palsy; no dysarthria Skin- warm & dry Results & Data Results & Data ([facility]) Vital Signs (Past 12 Hours) Vital Signs Temp Pulse Pulse Resp BP Pulse Ox 03/25/21 17:05 89 18 95 03/25/21 14:39 90 18 98 03/25/21 11:19 37 C 80 18 112/56 L 96 03/25/21 11:10 90 18 97 03/25/21 08:00 37 C 95 H 20 110/59 L 96 03/25/21 07:45 84 03/25/21 07:28 59 L 16 97 (1) Asthma exacerbation Asthma persistence: unspecified Asthma severity: moderate Qualified Code(s): J45.901 - Unspecified asthma with (acute) exacerbation
[2021-03-25 18:38] LABS: BUN Creatinine Ratio 17.9 (10-20); Calcium 9.3 mg/dl (8.5-10.1); Creatinine Clr Calc Pharmacy 80.3 ml/min; Est GFR (African American) 96.3 ml/min; Est GFR (Non-African American) 83.1 ml/min; Potassium 4.1 mmol/L (3.5-5.1)
[2021-03-25] MEDS: AZITHROMYCIN 250 MG TAB PO SCH (18:50)
[2021-03-26] MEDS: ALBUTEROL 0.083% NEBU SOLN 3 ML VIAL NEB SCH ×13 (00:59→22:05)
[2021-03-26] MEDS: methylPREDNISolone 40 MG in SYRINGE 0 ML IV SCH ×3 (02:40→17:22)
[2021-03-26] MEDS: PANTOprazole 40 MG TAB PO SCH (08:09)
[2021-03-26] MEDS: MONTELUKAST SODIUM 10 MG TABLET PO SCH (08:09)
[2021-03-26] MEDS: TOPIRAMATE 50 MG TAB PO SCH ×2 (08:10→20:13)
[2021-03-26] MEDS: POLYETHYLENE (MIRALAX) 17 GM PACK PO SCH (08:10)
[2021-03-26] MEDS: UMECLIDINIUM BROMIDE 62.5MCG/BLISTER 7 PUFFS/INHALER INH SCH (08:10)
[2021-03-26] MEDS: FLUTICASONE/VILANTEROL 200/25MCG 14 PUFFS/INHALER INH SCH (08:10)
[2021-03-26 10:08] LABS: Hematocrit (blood only) 38.2 % (37-47); Hemoglobin 12.6 g/dL (12.0-16.0); Mean Corpuscular Hemoglobin 27.7 pg (25-34); Mean Platelet Volume 10.6 fL (7.4-10.4); Platelet Count 379 K/uL (130-400); RDW Coefficient of Variation 15.8 % (11.5-14.5); RDW Standard Deviation 48.7 fL (36.4-46.3); Red Blood Count 4.55 M/uL (4.2-5.4)
[2021-03-26 10:14] LABS: BUN Creatinine Ratio 21.4 (10-20); Calcium 9.5 mg/dl (8.5-10.1); Creatinine Clr Calc Pharmacy 94.5 ml/min; Est GFR (African American) 117.2 ml/min; Est GFR (Non-African American) 101.2 ml/min; Potassium 3.8 mmol/L (3.5-5.1)
[2021-03-26] MEDS: AZITHROMYCIN 250 MG TAB PO SCH (17:22)
--- NOTE | 2021-03-26 21:58 | Hospitalist Progress Note ---
Date of Service March 26, 2021 Assessment & Plan (1) Asthma exacerbation: Plan: Present on admission with worsening shortness of breath despite use of prednisone and albuterol nebulizer treatment Chest x-ray showed no acute finding Patient said before she came to the ER she took prednisone 120 mg x 1 and had 3 nebulizer treatment In the ER received 3 nebulizer treatments and Solu-Medrol 125 mg IV Currently on IV Solu-Medrol 40 mg every 8 hour Pulmonology on board Pulm recommended steroid sparing agent due to the chronic high-dose steroid. She might need to consider methotrexate as an outpatient will be utilized as a steroid sparing agent and also start on a trial of azithromycin 250 mg daily for 5 days a week for 4 to 6 weeks Continue neb treatment Continue to monitor closely Recommend close follow-up with home in 5 to 7 days Patient was educated and advised about taking the COVID 19 vaccine she Continue monitor closely (2) DVT prophylaxis: Plan: -SCDs Admission and Anticipated Discharge Date Admission Date: March 24, 2021 Subjective Patient was seen and examined for follow-up of shortness of breath Lying in bed with no acute respiratory distress Patient said that she felt slightly better today She is hoping that she can be discharged tomorrow to be with her kid. Denies any chest pain, palpitation, dizziness, and fever. Physical Exam Physical Exam: General- No acute distress Head- atraumatic Eyes- PERRL, EOMI, ENT- oropharynx clear Neck- supple, no JVD Lungs- expiratory wheezing Heart- +tacycardia; no murmur Abdomen- normal bowel sounds, soft, nontender Extremities- no calf tenderness Neuro- alert, oriented x 3; PERRL, EOMI; no facial palsy; no dysarthria Skin- warm & dry Results & Data Results & Data ([facility]) Vital Signs (Past 12 Hours) Vital Signs Temp Pulse Pulse Resp BP BP Pulse Ox 03/26/21 19:38 36.9 C 75 18 115/68 96 03/26/21 19:36 76 12 99 03/26/21 15:25 37.0 C 80 20 133/93 97 03/26/21 15:16 69 03/26/21 15:04 88 16 98 03/26/21 13:24 96 H 16 98 03/26/21 11:47 37.0 C 109 H 20 110/64 97 03/26/21 11:11 90 14 96 (1) Asthma exacerbation Asthma persistence: unspecified Asthma severity: moderate Qualified Code(s): J45.901 - Unspecified asthma with (acute) exacerbation
[2021-03-27] MEDS: ALBUTEROL 0.083% NEBU SOLN 3 ML VIAL NEB SCH ×11 (00:45→22:55)
[2021-03-27] MEDS: methylPREDNISolone 40 MG in SYRINGE 0 ML IV SCH ×3 (01:46→20:35)
[2021-03-27] MEDS: FLUTICASONE/VILANTEROL 200/25MCG 14 PUFFS/INHALER INH SCH (08:13)
[2021-03-27] MEDS: UMECLIDINIUM BROMIDE 62.5MCG/BLISTER 7 PUFFS/INHALER INH SCH (08:13)
[2021-03-27] MEDS: PANTOprazole 40 MG TAB PO SCH (08:14)
[2021-03-27] MEDS: POLYETHYLENE (MIRALAX) 17 GM PACK PO SCH (08:14)
[2021-03-27] MEDS: TOPIRAMATE 50 MG TAB PO SCH ×2 (08:14→20:34)
[2021-03-27] MEDS: MONTELUKAST SODIUM 10 MG TABLET PO SCH (08:57)
--- NOTE | 2021-03-27 14:05 | Pulmonology Progress Note ---
Date of Service March 27, 2021 Assessment & Plan (1) Severe persistent asthma dependent on systemic steroids with acute ex acerbation: Plan: 30-year-old -[place] female with a past medical history of severe GERD status post Amadou fundoplication x2, severe persistent eosinophilic asthma, vocal cord dysfunction and chronic allergic rhinitis presenting to the hospital due to an asthma exacerbation. Severe persistent, eosinophilic mediated asthma: She has profound symptoms at baseline and her asthma is poorly controlled. She is nearly on maximal therapy. I think she would be an excellent candidate for mepolizumab therapy. Her eosinophil count was very elevated despite being on prednisone. I also think she would likely be a good candidate for steroid sparing agents given the high dose requirements of prednisone she is on chronically. She is at risk for significant complications moving forward if she remains on chronic prednisone therapy. We can consider starting her on methotrexate as an outpatient to be utilized as a steroid sparing agent. I would also recommend initiating the patient on a 4 to 6-week trial of azithromycin 250 mg daily for 5 days a week. Her QTc interval is 402 ms which is acceptable. Additionally, I think she should be vaccinated against COVID-19 as soon as possible. Her being immunocompromised places her at significant risk for complications from a COVID-19 infection. I do not think that immunosuppression is a relative contraindication in her case, but rather is in fact a clear indication for her to get vaccinated. She would also be eligible for a booster vaccine after her 2 dose vaccination sequence. This was relayed to the patient. I think she should have close follow-up with allergy and immunology especially given the consideration of starting her on anti-IgE/antiinterleukin therapy. While in the hospital she can remain on the IV Solu-Medrol dose that she is currently on and we can wean her down to oral steroids. She can be weaned down likely in the next 1 to 2 days to 60 mg of p.o. prednisone. She is at risk for PJP and the use of Bactrim should be considered as prophylaxis while on doses of greater than 20 mg (or equivalent) of prednisone for more than 2 weeks. Continue her current dose of ICS/LABA/LAMA combination. GERD: Her GERD symptoms should be aggressively controlled with antireflux medicine. Allergic symptoms: Continue antihistamine and montelukast. I have added Flonase and ipratropium nasal spray. She should have an appointment scheduled with her certified real estate appraiser within 5 to 7 days of discharge. Thank you for the consultation. We will continue to follow along with you closely. (2) Asthma exacerbation: Asthma persistence: unspecified Asthma severity: moderate Qualified Code(s): J45.901 - Unspecified asthma with (acute) exacerbation (3) GERD (gastroesophageal reflux disease): (4) Shortness of breath: (5) Allergic rhinitis: Admission and Anticipated Discharge Date Admission Date: March 24, 2021 Subjective Patient seen and examined today. She notices improvement in her breathing. She is still wheezing and coughing. She has some postnasal drip symptoms as well. No fevers or chills. No significant chest pain. Review of Systems Review of Systems: All systems reviewed & are unremarkable except as noted in HPI & below Physical Exam Physical Exam: Constitutional: Patient appears to be of their stated age. Patient is in no apparent distress. Patient is well-developed. Raspy voice. Eyes: Pupils are equal round and reactive to light. Conjunctivae are normal. Anicteric sclera. Ears nose, mouth and throat: Mallampati class 2. Normal posterior oropharynx. Uvula is midline. Neck: Trachea is midline. Visual inspection is normal. Respiratory: Prolonged phase of exhalation. Expiratory wheezes in all lobes. Cardiovascular: Regular rate and rhythm. No murmurs. No edema. Gastrointestinal: Normal bowel sounds, soft, nontender and nondistended. No hepatosplenomegaly noted. Musculoskeletal: No cyanosis. Patient is able to move all extremities. Strength is 5 out of 5 in the upper and lower extremities. Skin: No rashes, warm dry and intact. Neurologic: No obvious focal neurological deficits seen. Psychiatric: Alert and oriented x3 with a euthymic affect. Results & Data Results & Data ([facility]) Vital Signs (Past 12 Hours) Vital Signs Temp Pulse Pulse Resp BP BP Pulse Ox 03/27/21 11:07 87 16 98 03/27/21 11:00 99.0 F 98 H 18 104/64 99 03/27/21 09:01 89 16 98 03/27/21 07:12 85 16 98 03/27/21 07:08 83 03/27/21 07:00 98.2 F 88 20 110/67 98 03/27/21 05:19 94 H 18 99 08/18/21 03:00 98.1 F 86 16 102/58 L 94 03/27/21 02:45 90 14 99 Vital signs, labs and imaging personally reviewed PG Care Time/CCT Total # of Minutes Spent Total Time Spent with Patient: Total time spent is greater than 50% in coordination of care (as documented) at patient's floor/unit and/or counseling patient: Coding Level of Care Code 11641 Subseq Hosp Care Lvl 2 Diagnoses Severe persistent asthma dependent on systemic steroids with acute exacerbation J45.51; Z79.52 Asthma exacerbation J45.901 Asthma persistence: unspecified Asthma severity: moderate GERD (gastroesophageal reflux disease) K21.9 Shortness of breath R06.02 Allergic rhinitis J30.9
[2021-03-27] MEDS: AZITHROMYCIN 250 MG TAB PO SCH (16:50)
--- NOTE | 2021-03-27 19:21 | Hospitalist Progress Note ---
Date of Service March 27, 2021 Assessment & Plan (1) Asthma exacerbation: Plan: Present on admission with worsening shortness of breath despite use of prednisone and albuterol nebulizer treatment Chest x-ray showed no acute finding Patient said before she came to the ER she took prednisone 120 mg x 1 and had 3 nebulizer treatment In the ER received 3 nebulizer treatments and Solu-Medrol 125 mg IV Currently on IV Solu-Medrol 40 mg every 8 hour, titrate to q12HR Pulmonology on board Pulm recommended steroid sparing agent due to the chronic high-dose steroid. She might need to consider methotrexate as an outpatient will be utilized as a steroid sparing agent and also start on a trial of azithromycin 250 mg daily for 5 days a week for 4 to 6 weeks Continue neb treatment Continue to monitor closely Recommend close follow-up with home in 5 to 7 days Patient was educated and advised about taking the COVID 19 vaccine she Continue monitor closely (2) DVT prophylaxis: Plan: -SCDs Admission and Anticipated Discharge Date Admission Date: March 24, 2021 Subjective Patient was seen and examined for shortness of breath Sitting in bed no acute distress Patient said that her breathing slightly improved today She is very anxious to go home today Denies any chest pain, palpitation , dizziness Physical Exam Physical Exam: General- No acute distress Head- atraumatic Eyes- PERRL, EOMI, ENT- oropharynx clear Neck- supple, no JVD Lungs- expiratory wheezing Heart- +tacycardia; no murmur Abdomen- normal bowel sounds, soft, nontender Extremities- no calf tenderness Neuro- alert, oriented x 3; PERRL, EOMI; no facial palsy; no dysarthria Skin- warm & dry Results & Data Results & Data ([facility]) Vital Signs (Past 12 Hours) Vital Signs Temp Pulse Pulse Resp BP Pulse Ox 03/27/21 17:02 73 18 96 03/27/21 15:00 37.1 C 93 H 18 137/80 97 03/27/21 14:19 99 H 03/27/21 14:15 90 20 96 03/27/21 11:07 87 16 98 03/27/21 11:00 37.2 C 98 H 18 104/64 99 03/27/21 09:01 89 16 98 (1) Asthma exacerbation Asthma persistence: unspecified Asthma severity: moderate Qualified Code(s): J45.901 - Unspecified asthma with (acute) exacerbation
[2021-03-27] MEDS: FLUTICASONE PROPIONATE NA SPR 16 GM BTL SCH (20:36)
[2021-03-27] MEDS: IPRATROPIUM BROMIDE NASAL SPRAY 0.06% 15ML NAE SCH (20:36)
[2021-03-27] MEDS ORDERED: SODIUM CHLORIDE 0.9% 1000ML 1,000 ML IV SCH (21:15)
[2021-03-28] MEDS: ALBUTEROL 0.083% NEBU SOLN 3 ML VIAL NEB SCH ×7 (02:10→22:56)
[2021-03-28] MEDS: FLUTICASONE/VILANTEROL 200/25MCG 14 PUFFS/INHALER INH SCH (09:00)
[2021-03-28] MEDS: UMECLIDINIUM BROMIDE 62.5MCG/BLISTER 7 PUFFS/INHALER INH SCH (09:00)
[2021-03-28] MEDS: IPRATROPIUM BROMIDE NASAL SPRAY 0.06% 15ML NAE SCH ×2 (09:00→20:55)
[2021-03-28] MEDS: methylPREDNISolone 40 MG in SYRINGE 0 ML IV SCH ×3 (09:01→20:55)
[2021-03-28] MEDS: TOPIRAMATE 50 MG TAB PO SCH ×2 (09:01→20:56)
[2021-03-28] MEDS: FLUTICASONE PROPIONATE NA SPR 16 GM BTL SCH ×2 (09:01→20:55)
[2021-03-28] MEDS: POLYETHYLENE (MIRALAX) 17 GM PACK PO SCH (09:01)
[2021-03-28] MEDS: PANTOprazole 40 MG TAB PO SCH (09:02)
[2021-03-28] MEDS: MONTELUKAST SODIUM 10 MG TABLET PO SCH (09:02)
[2021-03-28 13:56] LABS: ANCA Screen Negative (Negative); Immunoglobulin IgE 514 kU/L (<OR=114); Myeloperoxidase Ab <1.0 AI (<1.0); Proteinase-3 AB <1.0 AI (<1.0)
[2021-03-28] MEDS ORDERED: ALBUTEROL 0.5% NEB SOLN 2.5 MG/0.5 ML VIAL NEB STA (15:07)
[2021-03-28] MEDS: AZITHROMYCIN 250 MG TAB PO SCH (16:24)
--- NOTE | 2021-03-28 20:17 | Pulmonology Progress Note ---
Date of Service March 28, 2021 Assessment & Plan (1) Severe persistent asthma dependent on systemic steroids with acute ex acerbation: Plan: 30-year-old -[place] female with a past medical history of severe GERD status post Amadou fundoplication x2, severe persistent eosinophilic asthma, vocal cord dysfunction and chronic allergic rhinitis presenting to the hospital due to an asthma exacerbation. Severe persistent, eosinophilic mediated asthma: She has profound symptoms at baseline and her asthma is poorly controlled. She is nearly on maximal therapy. I think she would be an excellent candidate for mepolizumab therapy. Her eosinophil count was very elevated despite being on prednisone. I also think she would likely be a good candidate for steroid sparing agents given the high dose requirements of prednisone she is on chronically. She is at risk for significant complications moving forward if she remains on chronic prednisone therapy. We can consider starting her on methotrexate as an outpatient to be utilized as a steroid sparing agent. I would also recommend initiating the patient on a 4 to 6-week trial of azithromycin 250 mg daily for 5 days a week. Her QTc interval is 402 ms which is acceptable. Additionally, I think she should be vaccinated against COVID-19 as soon as possible. Her being immunocompromised places her at significant risk for complications from a COVID-19 infection. I do not think that immunosuppression is a relative contraindication in her case, but rather is in fact a clear indication for her to get vaccinated. She would also be eligible for a booster vaccine after her 2 dose vaccination sequence. This was relayed to the patient. I think she should have close follow-up with allergy and immunology especially given the consideration of starting her on anti-IgE/antiinterleukin therapy. While in the hospital she can remain on the IV Solu-Medrol dose that she is currently on and we can wean her down to oral steroids. She can be weaned down likely in the next 1 to 2 days to 60 mg of p.o. prednisone. She is at risk for PJP and PJP prophylaxis should be considered while on doses of greater than 20 mg (or equivalent) of prednisone for more than 2 weeks. Continue her current dose of ICS/LABA/LAMA combination. GERD: Her GERD symptoms should be aggressively controlled with antireflux medicine. Allergic symptoms: Continue antihistamine and montelukast. I have added Flonase and ipratropium nasal spray. She should have an appointment scheduled with her personnel representative within 5 to 7 days of discharge. Thank you for the consultation. We will continue to follow along with you closely. (2) Asthma exacerbation: Asthma persistence: unspecified Asthma severity: moderate Qualified Code(s): J45.901 - Unspecified asthma with (acute) exacerbation (3) GERD (gastroesophageal reflux disease): (4) Shortness of breath: (5) Allergic rhinitis: Admission and Anticipated Discharge Date Admission Date: March 24, 2021 Subjective Patient with short of breath with exertion such as walking. She became very tachycardic. She does not feel that she is back to her baseline. She was very anxious and wanting to go home, but eventually understands that she needs to stay for another day. Denies any fevers or chills. Review of Systems Review of Systems: All systems reviewed & are unremarkable except as noted in HPI & below Physical Exam Physical Exam: Constitutional: Patient appears to be of their stated age. Patient is in no apparent distress. Patient is well-developed. Raspy voice. Eyes: Pupils are equal round and reactive to light. Conjunctivae are normal. Anicteric sclera. Ears nose, mouth and throat: Mallampati class 2. Normal posterior oropharynx. Uvula is midline. Neck: Trachea is midline. Visual inspection is normal. Respiratory: Prolonged phase of exhalation. Expiratory wheezes in all lobes. Cardiovascular: Regular rate and rhythm. No murmurs. No edema. Gastrointestinal: Normal bowel sounds, soft, nontender and nondistended. No hepatosplenomegaly noted. Musculoskeletal: No cyanosis. Patient is able to move all extremities. Strength is 5 out of 5 in the upper and lower extremities. Skin: No rashes, warm dry and intact. Neurologic: No obvious focal neurological deficits seen. Psychiatric: Alert and oriented x3 with a euthymic affect. Results & Data Results & Data ([facility]) Vital Signs (Past 12 Hours) Vital Signs Temp Pulse Resp BP Pulse Ox 03/28/21 19:44 98.6 F 88 20 107/70 95 03/28/21 19:23 100 H 20 96 03/28/21 15:26 69 18 95 03/28/21 15:00 98.4 F 88 24 114/76 96 03/28/21 11:52 68 16 96 03/28/21 11:00 98.4 F 83 20 114/73 85 L vital signs, imaging and labs personally reviewed PG Care Time/CCT Total # of Minutes Spent Total Time Spent with Patient: Total time spent is greater than 50% in coordination of care (as documented) at patient's floor/unit and/or counseling patient: Coding Level of Care Code 08686 Subseq Hosp Care Lvl 3 Diagnoses Severe persistent asthma dependent on systemic steroids with acute exacerbation J45.51; Z79.52 Asthma exacerbation J45.901 Asthma persistence: unspecified Asthma severity: moderate GERD (gastroesophageal reflux disease) K21.9 Shortness of breath R06.02 Allergic rhinitis J30.9
[2021-03-28] MEDS: DOCUSATE SODIUM/SENNA 50/8.6MG TAB PO SCH (21:29)
--- NOTE | 2021-03-28 21:34 | Hospitalist Progress Note ---
Date of Service March 28, 2021 Assessment & Plan (1) Asthma exacerbation: Plan: Severe persistent asthma dependent on systemic steroids with acute exacerbation: Present on admission with worsening shortness of breath despite use of prednisone and albuterol nebulizer treatment Intubated in the past due to asthma exacerbation Chest x-ray showed no acute finding Patient said before she came to the ER she took prednisone 120 mg x 1 and had 3 nebulizer treatment In the ER received 3 nebulizer treatments and Solu-Medrol 125 mg IV Currently on IV Solu-Medrol 40 mg every 12 hour will change back to IV Solu-Medrol 40 mg every 8 hour Pulmonology on board Pulm recommended steroid sparing agent due to the chronic high-dose steroid. She might need to consider methotrexate as an outpatient will be utilized as a steroid sparing agent and also start on a trial of azithromycin 250 mg daily for 5 days a week for 4 to 6 weeks Continue neb treatment Case discussed with pulmonology dr. Jacobsen recommended to transition to p.o. prednisone on discharge 60 mg with a slow taper by 10 mg every 3 days. Continue Flonase and ipratropium nasal spray Recommend close follow-up with pulmonology in 5 to 7 days We will consult ENT to evaluate for vocal cord dysfunction Patient was educated and advised about taking the COVID 19 vaccine Continue monitor closely We will discharge once medically stable (2) DVT prophylaxis: Plan: -SCDs Admission and Anticipated Discharge Date Admission Date: March 24, 2021 Subjective Patient was seen and examined for shortness of breath Sitting in bed no acute distress Patient states she feels a lot better today She is very anxious to go home today We watch her walk in the hallway today after 1 lap in the hallway, her heart rate increased to 130 and she was struggle to breath She said that she would be fine to go home Denies any chest pain, palpitation , dizziness Physical Exam Physical Exam: General- No acute distress Head- atraumatic Eyes- PERRL, EOMI, ENT- oropharynx clear Neck- supple, no JVD Lungs- expiratory wheezing Heart- +tacycardia; no murmur Abdomen- normal bowel sounds, soft, nontender Extremities- no calf tenderness Neuro- alert, oriented x 3; PERRL, EOMI; no facial palsy; no dysarthria Skin- warm & dry Results & Data Results & Data ([facility]) Vital Signs (Past 12 Hours) Vital Signs Temp Pulse Resp BP Pulse Ox 03/28/21 19:44 37 C 88 20 107/70 95 03/28/21 19:23 100 H 20 96 03/28/21 15:26 69 18 95 03/28/21 15:00 36.9 C 88 24 114/76 96 03/28/21 11:52 68 16 96 03/28/21 11:00 36.9 C 83 20 114/73 85 L (1) Asthma exacerbation Asthma persistence: unspecified Asthma severity: moderate Qualified Code(s): J45.901 - Unspecified asthma with (acute) exacerbation
[2021-03-29] MEDS: ALBUTEROL 0.083% NEBU SOLN 3 ML VIAL NEB SCH ×6 (03:24→22:15)
[2021-03-29] MEDS: methylPREDNISolone 40 MG in SYRINGE 0 ML IV SCH ×2 (05:27→13:36)
[2021-03-29] MEDS: POLYETHYLENE (MIRALAX) 17 GM PACK PO SCH (08:26)
[2021-03-29] MEDS: PANTOprazole 40 MG TAB PO SCH (08:27)
[2021-03-29] MEDS: MONTELUKAST SODIUM 10 MG TABLET PO SCH (08:28)
[2021-03-29] MEDS: TOPIRAMATE 50 MG TAB PO SCH ×2 (08:29→21:44)
[2021-03-29] MEDS: IPRATROPIUM BROMIDE NASAL SPRAY 0.06% 15ML NAE SCH ×2 (08:29→21:45)
[2021-03-29] MEDS: UMECLIDINIUM BROMIDE 62.5MCG/BLISTER 7 PUFFS/INHALER INH SCH (08:30)
[2021-03-29] MEDS: FLUTICASONE/VILANTEROL 200/25MCG 14 PUFFS/INHALER INH SCH (08:30)
[2021-03-29] MEDS: FLUTICASONE PROPIONATE NA SPR 16 GM BTL SCH ×2 (08:30→21:44)
--- NOTE | 2021-03-29 16:28 | Hospitalist Progress Note ---
Date of Service March 29, 2021 Assessment & Plan (1) Asthma exacerbation: Plan: Severe persistent asthma dependent on systemic steroids with acute exacerbation: Present on admission with worsening shortness of breath despite use of prednisone and albuterol nebulizer treatment Intubated in the past due to asthma exacerbation Chest x-ray showed no acute finding Received intravenous Solu-Medrol and nebulized treatment in ER without much improvement Currently on IV Solu-Medrol 40 mg every 12 hour will change back to IV Solu-Medrol 40 mg every 8 hour- Appreciate pulmonary input and recommendation Pulm recommended steroid sparing agent due to the chronic high-dose steroid. She might need to consider methotrexate as an outpatient will be utilized as a steroid sparing agent and also start on a trial of azithromycin 250 mg daily for 5 days a week for 4 to 6 weeks Case discussed with pulmonology dr. Jacobsen recommended to transition to p.o. prednisone on discharge 60 mg with a goal admitting history respiratory: Clear to mer[place] to medical unit because possible Taper by 10 mg every 3 days. Continue Flonase and ipratropium nasal spray Recommend close follow-up with pulmonology in 5 to 7 days following discharge from the hospital We will consult ENT to evaluate for vocal cord dysfunction Patient was educated and advised about taking the COVID 19 vaccine Remains extremely short of breath with minimal exertion We will continue current management (2) DVT prophylaxis: Plan: -SCDs -We will start subcu heparin Admission and Anticipated Discharge Date Admission Date: March 24, 2021 Subjective The patient was seen and examined in medical telemetry unit She remains very short of breath with wheezing on minimal exertion Generally weak and lethargic and very anxious No fever and no chills Review of Systems Review of Systems: All systems reviewed and unremarkable except as noted below Respiratory: Moderate shortness of breath at rest Physical Exam Physical Exam: Lying in bed with minimal shortness of breath Constitutional: well developed, well nourished and + ill appearing Eyes: PERRL, conjunctivae normal, anicteric sclerae Respiratory: + respiratory distress, + uses accessory muscles, + cough and + tachypneic Auscultation: + diminished lung sounds, + crackles and + wheezes Cardiovascular: Rate/Rhythm: regular rate and regular rhythm; not tachycardic Heart Sounds: normal S1 and normal S2; no murmur Gastrointestinal (Abdomen): normal bowel sounds, soft, nontender, no hepatosplenomegaly Musculoskeletal: No acute arthritis knee joint Neurologic: Alert, awake and oriented x3. No focal sensory or motor deficit appreciated Lymphatic: no cervical or axillary lymphadenopathy Results & Data Results & Data ([facility]) Vital Signs (Past 12 Hours) Vital Signs Temp Pulse Pulse Resp BP Pulse Ox 03/29/21 16:00 36.8 C 80 18 126/87 97 03/29/21 15:52 81 18 96 03/29/21 11:30 37.1 C 85 16 118/79 96 03/29/21 11:16 85 16 96 03/29/21 07:36 84 16 95 03/29/21 07:32 36.6 C 86 16 109/69 95 03/29/21 07:06 78 Medications Administered Current Inpatient Medications Acetaminophen (Acetaminophen 325 Mg Tab) 650 mg PO Q4H PRN PRN Reason: pain/fever Stop: 04/23/21 11:45 Albuterol (Albuterol 0.083% Nebu Soln 3 Ml Vial) 2.5 mg NEB Q2R PRN PRN Reason: Shortness Of Breath Or Wheezing Stop: 04/24/21 15:59 Last Admin: 03/29/21 01:24 Dose: 2.5 mg Documented by: Albuterol (Albuterol 0.083% Nebu Soln 3 Ml Vial) 2.5 mg NEB Q4R DAVID Stop: 04/27/21 10:59 Last Admin: 03/29/21 19:05 Dose: 2.5 mg Documented by: Azithromycin (Azithromycin 250 Mg Tab) 250 mg PO Q24H DAVID Stop: 04/01/21 16:59 Last Admin: 03/29/21 17:02 Dose: 250 mg Documented by: Fluticasone Propionate (Fluticasone Propionate Na Spr 16 Gm Btl) 1 sprays NA BID DAVID Stop: 04/26/21 20:59 Last Admin: 03/29/21 08:30 Dose: 1 sprays Documented by: Fluticasone/Vilanterol (Fluticasone/Vilanterol 200/25mcg 14 Puffs/Inhaler) 1 puffs INH DAILY DAVID Stop: 04/24/21 08:59 Last Admin: 03/29/21 08:30 Dose: 1 puffs Documented by: Ipratropium Clint (Ipratropium Clint Nasal [place] 0.06% 15ml) 2 sprays JANNETTE Q12 DAVID Stop: 04/26/21 20:59 Last Admin: 03/29/21 08:29 Dose: 2 sprays Documented by: Montelukast Sodium (Montelukast Sodium 10 Mg Tablet) 10 mg PO DAILY DAVID Stop: 04/24/21 08:59 Last Admin: 03/29/21 08:28 Dose: 10 mg Documented by: Pantoprazole Sodium (Pantoprazole 40 Mg Tab) 40 mg PO DAILY DAVID Stop: 04/24/21 08:59 Last Admin: 03/29/21 08:27 Dose: 40 mg Documented by: Polyethylene Glycol (Polyethylene (Miralax) 17 Gm Pack) 17 gm PO DAILY DAVID Stop: 04/23/21 13:44 Last Admin: 03/29/21 08:26 Dose: 17 gm Documented by: Prednisone (Prednisone 20 Mg Tab) 60 mg PO DAILY DAVID Stop: 04/29/21 08:59 Senna/Docusate Sodium (Docusate Sodium/Senna 50/8.6mg Tab) 2 tab PO HS DAVID Stop: 04/27/21 21:04 Last Admin: 03/28/21 21:29 Dose: 2 tab Documented by: Topiramate (Topiramate 50 Mg Tab) 50 mg PO BID DAVID Stop: 04/23/21 20:59 Last Admin: 03/29/21 08:29 Dose: 50 mg Documented by: Umeclidinium Clint (Umeclidinium Clint 62.5mcg/Blister 7 Puffs/Inhaler) 1 puffs INH DAILY DAVID Stop: 04/24/21 08:59 Last Admin: 03/29/21 08:30 Dose: 1 puffs Documented by: (1) Asthma exacerbation Asthma persistence: unspecified Asthma severity: moderate Qualified Code(s): J45.901 - Unspecified asthma with (acute) exacerbation
--- NOTE | 2021-03-29 16:49 | Pulmonology Progress Note ---
Date of Service March 29, 2021 Assessment & Plan (1) Severe persistent asthma dependent on systemic steroids with acute ex acerbation: Plan: 30-year-old -Stateless female with a past medical history of severe GERD status post Amadou fundoplication x2, severe persistent eosinophilic asthma, vocal cord dysfunction and chronic allergic rhinitis presenting to the hospital due to an asthma exacerbation. Severe persistent, eosinophilic mediated asthma: She has profound symptoms at baseline and her asthma is poorly controlled. She is nearly on maximal therapy. I think she would be an excellent candidate for mepolizumab therapy. Her eosinophil count was very elevated despite being on prednisone. I also think she would likely be a good candidate for steroid sparing agents given the high dose requirements of prednisone she is on chronically. She is at risk for significant complications moving forward if she remains on chronic prednisone therapy. We can consider starting her on methotrexate as an outpatient to be utilized as a steroid sparing agent. I would also recommend initiating the patient on a 4 to 6-week trial of azithromycin 250 mg daily for 5 days a week. Her QTc interval is 402 ms which is acceptable. IgE level checked on 03/26/2021 of 514 KU/L. ANCA screen negative 03/26/2021. MANISH screen and autoimmune lab testing negative on 02/25/2017. Additionally, I think she should be vaccinated against COVID-19 as soon as possible. Her being immunocompromised places her at significant risk for complications from a COVID-19 infection. I do not think that immunosuppression is a relative contraindication in her case, but rather is in fact a clear indication for her to get vaccinated. She would also be eligible for a booster vaccine after her 2 dose vaccination sequence. This was relayed to the patient. I think she should have close follow-up with allergy and immunology especially given the consideration of starting her on anti-IgE/antiinterleukin therapy. As above her IgE level was elevated to 514. Transition to p.o. prednisone 60 mg starting tomorrow. Taper by 10 mg every 3 days until down to 10 milligrams. Continue her current dose of ICS/LABA/LAMA combination. GERD: Her GERD symptoms should be aggressively controlled with antireflux medicine. Allergic symptoms: Continue antihistamine and montelukast. I have added Flonase and ipratropium nasal spray. She should have an appointment scheduled with her beef killer within 5 to 7 days of discharge. Thank you for the consultation. We will continue to follow along with you closely. (2) Asthma exacerbation: Asthma persistence: unspecified Asthma severity: moderate Qualified Code(s): J45.901 - Unspecified asthma with (acute) exacerbation (3) GERD (gastroesophageal reflux disease): (4) Shortness of breath: (5) Allergic rhinitis: Admission and Anticipated Discharge Date Admission Date: March 24, 2021 Subjective Patient seen and examined this morning. She is feeling better, but still not close to her baseline. She did not walk much today. Her cough is improved. She denies any shortness of breath at rest. Review of Systems Review of Systems: All systems reviewed & are unremarkable except as noted in HPI & below Physical Exam Physical Exam: Constitutional: Patient appears to be of their stated age. Patient is in no apparent distress. Patient is well-developed. Raspy voice. Eyes: Pupils are equal round and reactive to light. Conjunctivae are normal. Anicteric sclera. Ears nose, mouth and throat: Mallampati class 2. Normal posterior oropharynx. Uvula is midline. Neck: Trachea is midline. Visual inspection is normal. Respiratory: Prolonged phase of exhalation. Wheezing improved from yesterday. Cardiovascular: Regular rate and rhythm. No murmurs. No edema. Gastrointestinal: Normal bowel sounds, soft, nontender and nondistended. No hepatosplenomegaly noted. Musculoskeletal: No cyanosis. Patient is able to move all extremities. Strength is 5 out of 5 in the upper and lower extremities. Skin: No rashes, warm dry and intact. Neurologic: No obvious focal neurological deficits seen. Psychiatric: Alert and oriented x3 with a euthymic affect. Results & Data Results & Data ([facility]) Vital Signs (Past 12 Hours) Vital Signs Temp Pulse Pulse Resp BP Pulse Ox 03/29/21 16:00 98.2 F 80 18 126/87 97 03/29/21 15:52 81 18 96 03/29/21 11:30 98.8 F 85 16 118/79 96 03/29/21 11:16 85 16 96 03/29/21 07:36 84 16 95 03/29/21 07:32 97.9 F 86 16 109/69 95 03/29/21 07:06 78 Vital signs, labs and imaging personally reviewed PG Care Time/CCT Total # of Minutes Spent Total Time Spent with Patient: Total time spent is greater than 50% in coordination of care (as documented) at patient's floor/unit and/or counseling patient: Coding Level of Care Code 22405 Subseq Hosp Care Lvl 3 Diagnoses Severe persistent asthma dependent on systemic steroids with acute exacerbation J45.51; Z79.52 Asthma exacerbation J45.901 Asthma persistence: unspecified Asthma severity: moderate GERD (gastroesophageal reflux disease) K21.9 Shortness of breath R06.02 Allergic rhinitis J30.9
[2021-03-29] MEDS: AZITHROMYCIN 250 MG TAB PO SCH (17:02)
[2021-03-29] MEDS: DOCUSATE SODIUM/SENNA 50/8.6MG TAB PO SCH (21:44)
[2021-03-29] MEDS: HEPARIN SOD 5,000 UNIT/0.5 ML VIAL SQ SCH (21:46)
[2021-03-30] MEDS: ALBUTEROL 0.083% NEBU SOLN 3 ML VIAL NEB SCH ×6 (02:40→22:05)
[2021-03-30 06:12] LABS: Basophils # (auto) 0.04 K/uL (0-0.2); Basophils % (auto) 0.2 %; Eosinophils # (auto) 0.01 K/uL (0-0.5); Hematocrit (blood only) 39.9 % (37-47); Hemoglobin 13.3 g/dL (12.0-16.0); Immature Granulocytes # (auto) 0.74 K/uL (0.00-0.02); Immature Granulocytes % (auto) 3.2 %; Lymphocytes # (auto) 3.51 K/uL (1.2-3.4); Lymphocytes % (auto) 15.3 %; Mean Corpuscular Hemoglobin 27.7 pg (25-34); Mean Corpuscular Hgb Conc 33.3 g/dL (32-36); Mean Corpuscular Volume 83.1 fL (80-100); Mean Platelet Volume 9.7 fL (7.4-10.4); Monocytes # (auto) 1.65 K/uL (0.11-0.59); Monocytes % (auto) 7.2 %; Neutrophils % (auto) 74.1 %; Platelet Count 409 K/uL (130-400); RDW Coefficient of Variation 15.6 % (11.5-14.5); RDW Standard Deviation 47.8 fL (36.4-46.3); White Blood Count 22.95 K/uL (4.8-10.8)
[2021-03-30 06:46] LABS: BUN Creatinine Ratio 28.7 (10-20); Calcium 8.9 mg/dl (8.5-10.1); Creatinine Clr Calc Pharmacy 88.9 ml/min; Est GFR (African American) 108.9 ml/min; Est GFR (Non-African American) 93.9 ml/min; Magnesium 2.5 mg/dl (1.8-2.4); Phosphorus 4.1 mg/dl (2.5-4.9); Potassium 3.8 mmol/L (3.5-5.1)
[2021-03-30] MEDS: HEPARIN SOD 5,000 UNIT/0.5 ML VIAL SQ SCH ×2 (10:36→21:25)
[2021-03-30] MEDS: UMECLIDINIUM BROMIDE 62.5MCG/BLISTER 7 PUFFS/INHALER INH SCH (11:05)
[2021-03-30] MEDS: FLUTICASONE PROPIONATE NA SPR 16 GM BTL SCH ×2 (11:05→21:22)
[2021-03-30] MEDS: FLUTICASONE/VILANTEROL 200/25MCG 14 PUFFS/INHALER INH SCH (11:06)
[2021-03-30] MEDS: MONTELUKAST SODIUM 10 MG TABLET PO SCH (11:06)
[2021-03-30] MEDS: IPRATROPIUM BROMIDE NASAL SPRAY 0.06% 15ML NAE SCH ×2 (11:06→21:23)
[2021-03-30] MEDS: predniSONE 20 MG TAB PO SCH (11:07)
[2021-03-30] MEDS: PANTOprazole 40 MG TAB PO SCH (11:07)
[2021-03-30] MEDS: TOPIRAMATE 50 MG TAB PO SCH ×2 (11:08→21:24)
[2021-03-30] MEDS: POLYETHYLENE (MIRALAX) 17 GM PACK PO SCH (11:09)
--- NOTE | 2021-03-30 12:44 | Pulmonology Progress Note ---
Date of Service March 30, 2021 Assessment & Plan (1) Severe persistent asthma dependent on systemic steroids with acute ex acerbation: Plan: 30-year-old -[place] female with a past medical history of severe GERD status post Amadou fundoplication x2, severe persistent eosinophilic asthma, vocal cord dysfunction and chronic allergic rhinitis presenting to the hospital due to an asthma exacerbation. Severe persistent, eosinophilic mediated asthma: She has profound symptoms at baseline and her asthma is poorly controlled. She is nearly on maximal therapy. I think she would be an excellent candidate for mepolizumab therapy. Her eosinophil count was very elevated despite being on prednisone. I also think she would likely be a good candidate for steroid sparing agents given the high dose requirements of prednisone she is on chronically. She is at risk for significant complications moving forward if she remains on chronic prednisone therapy. We can consider starting her on methotrexate as an outpatient to be utilized as a steroid sparing agent. I would also recommend initiating the patient on a 4 to 6-week trial of azithromycin 250 mg daily for 5 days a week. Her QTc interval is 402 ms which is acceptable. IgE level checked on 03/26/2021 of 514 KU/L. ANCA screen negative 03/26/2021. MANISH screen and autoimmune lab testing negative on 02/25/2017. Continue pulmonary toilet with incentive spirometry and flutter valve. Peak flows ordered. She would also be a good candidate for pulmonary rehab and this was discussed with her at bedside. She is agreeable to pursuing pulmonary rehab. Additionally, I think she should be vaccinated against COVID-19 as soon as possible. Her being immunocompromised places her at significant risk for complications from a COVID-19 infection. I do not think that immunosuppression is a relative contraindication in her case, but rather is in fact a clear indication for her to get vaccinated. She would also be eligible for a booster vaccine after her 2 dose vaccination sequence. This was relayed to the patient. Would benefit from allergy and immunology follow-up as an outpatient. As above her IgE level was elevated to 514. Continue prednisone taper. Taper by 10 mg every 3 days until down to 10 milligrams. Continue her current dose of ICS/LABA/LAMA combination. GERD: Her GERD symptoms should be aggressively controlled with antireflux medicine. Allergic symptoms: Continue antihistamine and montelukast. I have added Flonase and ipratropium nasal spray. She should have an appointment scheduled with her glove cleaner within 5 to 7 days of discharge. Thank you for the consultation. We will continue to follow along with you closely. (2) Asthma exacerbation: Asthma persistence: unspecified Asthma severity: moderate Qualified Code(s): J45.901 - Unspecified asthma with (acute) exacerbation (3) GERD (gastroesophageal reflux disease): (4) Shortness of breath: (5) Allergic rhinitis: Admission and Anticipated Discharge Date Admission Date: March 24, 2021 Subjective Patient seen and examined today. Wheezing is improved. She was able to a mbulate yesterday, but did feel short of breath during ambulation. She denies any shortness of breath at rest. She still has significant cough with wheezing, but this has improved some. No fevers or chills. Review of Systems Review of Systems: All systems reviewed & are unremarkable except as noted in HPI & below Physical Exam Physical Exam: Constitutional: Patient appears to be of their stated age. Patient is in no apparent distress. Patient is well-developed. Raspy voice. Eyes: Pupils are equal round and reactive to light. Conjunctivae are normal. Anicteric sclera. Ears nose, mouth and throat: Mallampati class 2. Normal posterior oropharynx. Uvula is midline. Neck: Trachea is midline. Visual inspection is normal. Respiratory: Prolonged phase of exhalation. Wheezing improved from yesterday. Cardiovascular: Regular rate and rhythm. No murmurs. No edema. Gastrointestinal: Normal bowel sounds, soft, nontender and nondistended. No hepatosplenomegaly noted. Musculoskeletal: No cyanosis. Patient is able to move all extremities. Strength is 5 out of 5 in the upper and lower extremities. Skin: No rashes, warm dry and intact. Neurologic: No obvious focal neurological deficits seen. Psychiatric: Alert and oriented x3 with a euthymic affect. Results & Data Results & Data ([facility]) Vital Signs (Past 12 Hours) Vital Signs Temp Pulse Pulse Resp BP Pulse Ox 03/30/21 12:01 98.8 F 90 16 105/71 99 03/30/21 11:26 77 18 96 03/30/21 07:50 97.5 F L 74 16 124/76 100 03/30/21 07:13 70 18 97 03/30/21 07:08 67 03/30/21 02:49 98.2 F 80 18 110/78 96 03/30/21 02:41 18 97 vital signs, labs and imaging reviewed PG Care Time/CCT Total # of Minutes Spent Total Time Spent with Patient: Total time spent is greater than 50% in coordination of care (as documented) at patient's floor/unit and/or counseling patient: Coding Level of Care Code 00683 Subseq Hosp Care Lvl 3 Diagnoses Severe persistent asthma dependent on systemic steroids with acute exacerbation J45.51; Z79.52 Asthma exacerbation J45.901 Asthma persistence: unspecified Asthma severity: moderate GERD (gastroesophageal reflux disease) K21.9 Shortness of breath R06.02 Allergic rhinitis J30.9
--- NOTE | 2021-03-30 13:42 | Hospitalist Progress Note ---
Date of Service March 30, 2021 Assessment & Plan (1) Asthma exacerbation: Plan: Severe persistent asthma dependent on systemic steroids with acute exacerbation: Present on admission with worsening shortness of breath despite use of prednisone and albuterol nebulizer treatment Intubated in the past due to asthma exacerbation Chest x-ray showed no acute finding Received intravenous Solu-Medrol and nebulized treatment in ER without much improvement Currently on IV Solu-Medrol 40 mg every 12 hour will change back to IV Solu-Medrol 40 mg every 8 hour- Appreciate pulmonary input and recommendation Pulm recommended steroid sparing agent due to the chronic high-dose steroid. She might need to consider methotrexate as an outpatient will be utilized as a steroid sparing agent and also start on a trial of azithromycin 250 mg daily for 5 days a week for 4 to 6 weeks Continue Flonase and ipratropium nasal spray Recommend close follow-up with pulmonology in 5 to 7 days following discharge from the hospital We will consult ENT to evaluate for vocal cord dysfunction Patient was educated and advised about taking the COVID 19 vaccine Clinically a little bit better Advised to ambulate in the room and with the help of the nurse Wants to go home and will try to send her home tomorrow Intravenous Solu-Medrol has been changed to oral prednisone (2) DVT prophylaxis: Plan: -SCDs -We will start subcu heparin Admission and Anticipated Discharge Date Admission Date: March 24, 2021 Subjective 03/29/2021 The patient was seen and examined in medical telemetry unit She remains very short of breath with wheezing on minimal exertion Generally weak and lethargic and very anxious No fever and no chills 03/30/2021 The patient was seen and examined in telemetry unit She has been feeling a little better but is still remains very short of breath with minimal exertion Her wheezing is better Review of Systems Review of Systems: All systems reviewed and unremarkable except as noted below Respiratory: Moderate shortness of breath at rest Physical Exam Physical Exam: Lying in bed with minimal shortness of breath Constitutional: well developed, well nourished and + ill appearing Eyes: PERRL, conjunctivae normal, anicteric sclerae ENMT: external ear and nose normal, oropharynx normal Neck: trachea midline, no thyromegaly Respiratory: + respiratory distress, + cough and + tachypneic; does not use accessory muscles Auscultation: + diminished lung sounds, + crackles and + wheezes Cardiovascular: Rate/Rhythm: regular rate and regular rhythm; not tachycardic Heart Sounds: normal S1 and normal S2; no murmur Gastrointestinal (Abdomen): normal bowel sounds, soft, nontender, no hepatosplenomegaly Musculoskeletal: No acute arthritis in any joint Neurologic: Anxious but alert, awake and oriented x3 Lymphatic: no cervical or axillary lymphadenopathy Results & Data Results & Data ([facility]) Vital Signs (Past 12 Hours) Vital Signs Temp Pulse Pulse Resp BP Pulse Ox 03/30/21 12:01 37.1 C 90 16 105/71 99 03/30/21 11:26 77 18 96 03/30/21 07:50 36.4 C L 74 16 124/76 100 03/30/21 07:13 70 18 97 03/30/21 07:08 67 03/30/21 02:49 36.8 C 80 18 110/78 96 03/30/21 02:41 18 97 Laboratory Results Short CBC 03/30/21 Range/Units 05:52 WBC 22.95 H (4.8-10.8) K/uL Hgb 13.3 (12.0-16.0) g/dL Hct 39.9 (37-47) % Plt Count 409 H (130-400) K/uL BMP 03/30/21 05:52 Sodium 137 Potassium 3.8 Chloride 105 Carbon Dioxide 28 BUN 24 H Creatinine 0.84 Glucose 94 Calcium 8.9 Medications Administered Current Inpatient Medications Acetaminophen (Acetaminophen 325 Mg Tab) 650 mg PO Q4H PRN PRN Reason: pain/fever Stop: 04/23/21 11:45 Albuterol (Albuterol 0.083% Nebu Soln 3 Ml Vial) 2.5 mg NEB Q2R PRN PRN Reason: Shortness Of Breath Or Wheezing Stop: 04/24/21 15:59 Last Admin: 03/29/21 01:24 Dose: 2.5 mg Documented by: Albuterol (Albuterol 0.083% Nebu Soln 3 Ml Vial) 2.5 mg NEB Q4R DAVID Stop: 04/27/21 10:59 Last Admin: 03/30/21 11:24 Dose: 2.5 mg Documented by: Azithromycin (Azithromycin 250 Mg Tab) 250 mg PO Q24H DAVID Stop: 04/01/21 16:59 Last Admin: 03/29/21 17:02 Dose: 250 mg Documented by: Fluticasone Propionate (Fluticasone Propionate Na Spr 16 Gm Btl) 1 sprays NA BID DAVID Stop: 04/26/21 20:59 Last Admin: 03/30/21 11:05 Dose: 1 sprays Documented by: Fluticasone/Vilanterol (Fluticasone/Vilanterol 200/25mcg 14 Puffs/Inhaler) 1 puffs INH DAILY DAVID Stop: 04/24/21 08:59 Last Admin: 03/30/21 11:06 Dose: 1 puffs Documented by: Heparin Sodium (Porcine) (Heparin Sod 5,000 Unit/0.5 Ml Vial) 5,000 units SQ Q12 DAVID Stop: 04/28/21 20:59 Last Admin: 03/30/21 10:36 Dose: Not Given Documented by: Ipratropium [place] (Ipratropium [place] Nasal [place] 0.06% 15ml) 2 sprays JANNETTE Q12 DAVID Stop: 04/26/21 20:59 Last Admin: 03/30/21 11:06 Dose: 2 sprays Documented by: Montelukast Sodium (Montelukast Sodium 10 Mg Tablet) 10 mg PO DAILY DAVID Stop: 04/24/21 08:59 Last Admin: 03/30/21 11:06 Dose: 10 mg Documented by: Pantoprazole Sodium (Pantoprazole 40 Mg Tab) 40 mg PO DAILY DAVID Stop: 04/24/21 08:59 Last Admin: 03/30/21 11:07 Dose: 40 mg Documented by: Polyethylene Glycol (Polyethylene (Miralax) 17 Gm Pack) 17 gm PO DAILY DAVID Stop: 04/23/21 13:44 Last Admin: 03/30/21 11:09 Dose: 17 gm Documented by: Prednisone (Prednisone 20 Mg Tab) 60 mg PO DAILY DAVID Stop: 04/29/21 08:59 Last Admin: 03/30/21 11:07 Dose: 60 mg Documented by: Senna/Docusate Sodium (Docusate Sodium/Senna 50/8.6mg Tab) 2 tab PO HS DAVID Stop: 04/27/21 21:04 Last Admin: 03/29/21 21:44 Dose: 2 tab Documented by: Topiramate (Topiramate 50 Mg Tab) 50 mg PO BID DAVID Stop: 04/23/21 20:59 Last Admin: 03/30/21 11:08 Dose: 50 mg Documented by: Umeclidinium [place] (Umeclidinium [place] 62.5mcg/Blister 7 Puffs/Inhaler) 1 puffs INH DAILY DAVID Stop: 04/24/21 08:59 Last Admin: 03/30/21 11:05 Dose: 1 puffs Documented by: (1) Asthma exacerbation Asthma persistence: unspecified Asthma severity: moderate Qualified Code(s): J45.901 - Unspecified asthma with (acute) exacerbation
[2021-03-30] MEDS: AZITHROMYCIN 250 MG TAB PO SCH (17:43)
[2021-03-30] MEDS: DOCUSATE SODIUM/SENNA 50/8.6MG TAB PO SCH (21:24)
[2021-03-31] MEDS: ALBUTEROL 0.083% NEBU SOLN 3 ML VIAL NEB SCH ×6 (03:12→23:07)
[2021-03-31] MEDS: UMECLIDINIUM BROMIDE 62.5MCG/BLISTER 7 PUFFS/INHALER INH SCH (08:25)
[2021-03-31] MEDS: FLUTICASONE/VILANTEROL 200/25MCG 14 PUFFS/INHALER INH SCH (08:25)
[2021-03-31] MEDS: IPRATROPIUM BROMIDE NASAL SPRAY 0.06% 15ML NAE SCH ×2 (08:26→21:39)
[2021-03-31] MEDS: FLUTICASONE PROPIONATE NA SPR 16 GM BTL SCH ×2 (08:26→21:37)
[2021-03-31] MEDS: TOPIRAMATE 50 MG TAB PO SCH ×2 (08:27→21:39)
[2021-03-31] MEDS: predniSONE 20 MG TAB PO SCH (08:27)
[2021-03-31] MEDS: PANTOprazole 40 MG TAB PO SCH (08:27)
[2021-03-31] MEDS: MONTELUKAST SODIUM 10 MG TABLET PO SCH (08:27)
[2021-03-31] MEDS: POLYETHYLENE (MIRALAX) 17 GM PACK PO SCH (08:28)
[2021-03-31] MEDS: HEPARIN SOD 5,000 UNIT/0.5 ML VIAL SQ SCH ×2 (08:29→21:34)
--- NOTE | 2021-03-31 14:44 | Hospitalist Progress Note ---
Date of Service March 31, 2021 Assessment & Plan (1) Asthma exacerbation: Plan: Severe persistent asthma dependent on systemic steroids with acute exacerbation: Present on admission with worsening shortness of breath despite use of prednisone and albuterol nebulizer treatment Intubated in the past due to asthma exacerbation Chest x-ray showed no acute finding Received intravenous Solu-Medrol and nebulized treatment in ER without much improvement Currently on IV Solu-Medrol 40 mg every 12 hour will change back to IV Solu-Medrol 40 mg every 8 hour- Appreciate pulmonary input and recommendation Pulm recommended steroid sparing agent due to the chronic high-dose steroid. She might need to consider methotrexate as an outpatient will be utilized as a steroid sparing agent and also start on a trial of azithromycin 250 mg daily for 5 days a week for 4 to 6 weeks Continue Flonase and ipratropium nasal spray Recommend close follow-up with pulmonology in 5 to 7 days following discharge from the hospital We will consult ENT to evaluate for vocal cord dysfunction Patient was educated and advised about taking the COVID 19 vaccine Clinically a little bit better Advised to ambulate in the room and with the help of the nurse Wants to go home and will try to send her home tomorrow Intravenous Solu-Medrol has been changed to oral prednisone Clinically better but he still feels short of breath with dizziness on ambulation and the saturation drops down below 90 She was persuaded to stay another night Will get repeat to do steps tomorrow to see if she qualifies for oxygen (2) DVT prophylaxis: Plan: -SCDs -We will start subcu heparin Admission and Anticipated Discharge Date Admission Date: March 24, 2021 Subjective 03/29/2021 The patient was seen and examined in medical telemetry unit She remains very short of breath with wheezing on minimal exertion Generally weak and lethargic and very anxious No fever and no chills 03/30/2021 The patient was seen and examined in telemetry unit She has been feeling a little better but is still remains very short of breath with minimal exertion Her wheezing is better 03/31/2021 The patient was seen and examined in medical telemetry unit She has been feeling much better but he still gets dizziness and short of breath on minimal exertion Wants to go home Required to take rest in while doing 2 steps O2 saturation test today We will stay tonight and will repeat the test tomorrow Review of Systems Review of Systems: All systems reviewed and unremarkable except as noted below Respiratory: Moderate shortness of breath at rest Physical Exam Physical Exam: Lying in bed with minimal shortness of breath Constitutional: well developed, well nourished and + ill appearing Eyes: PERRL, conjunctivae normal, anicteric sclerae ENMT: external ear and nose normal, oropharynx normal Neck: trachea midline, no thyromegaly Respiratory: + cough and + tachypneic; no respiratory distress and does not use accessory muscles Auscultation: + diminished lung sounds and + wheezes (Minimal bilateral wheezing); no crackles Cardiovascular: Rate/Rhythm: regular rate and regular rhythm; not tachycardic Heart Sounds: normal S1 and normal S2; no murmur Gastrointestinal (Abdomen): normal bowel sounds, soft, nontender, no hepatosplenomegaly Musculoskeletal: No acute arthritis in any joint Neurologic: Alert, awake and oriented x3 Lymphatic: no cervical or axillary lymphadenopathy Results & Data Results & Data ([facility]) Vital Signs (Past 12 Hours) Vital Signs Temp Pulse Pulse Pulse Pulse Pulse Resp 03/31/21 13:40 118 H 24 03/31/21 13:38 109 H 118 H 99 H 03/31/21 11:23 36.8 C 107 H 16 03/31/21 10:41 86 18 03/31/21 07:29 36.5 C 69 18 03/31/21 07:13 77 15 03/31/21 04:00 36.6 C 60 18 03/31/21 03:12 60 16 03/31/21 03:00 89 Resp Resp Resp BP BP Pulse Ox Pulse Ox 03/31/21 13:40 96 03/31/21 13:38 24 24 16 95 03/31/21 11:23 119/75 95 03/31/21 10:41 96 03/31/21 07:29 128/86 92 03/31/21 07:13 97 03/31/21 04:00 119/74 94 03/31/21 03:12 94 03/31/21 03:00 Pulse Ox Pulse Ox 03/31/21 13:40 03/31/21 13:38 96 98 03/31/21 11:23 03/31/21 10:41 03/31/21 07:29 03/31/21 07:13 03/31/21 04:00 03/31/21 03:12 03/31/21 03:00 Medications Administered Current Inpatient Medications Acetaminophen (Acetaminophen 325 Mg Tab) 650 mg PO Q4H PRN PRN Reason: pain/fever Stop: 04/23/21 11:45 Albuterol (Albuterol 0.083% Nebu Soln 3 Ml Vial) 2.5 mg NEB Q2R PRN PRN Reason: Shortness Of Breath Or Wheezing Stop: 04/24/21 15:59 Last Admin: 03/29/21 01:24 Dose: 2.5 mg Documented by: Albuterol (Albuterol 0.083% Nebu Soln 3 Ml Vial) 2.5 mg NEB Q4R DAVID Stop: 04/27/21 10:59 Last Admin: 03/31/21 13:36 Dose: 2.5 mg Documented by: Azithromycin (Azithromycin 250 Mg Tab) 250 mg PO Q24H DAVID Stop: 04/01/21 16:59 Last Admin: 03/30/21 17:43 Dose: 250 mg Documented by: Fluticasone Propionate (Fluticasone Propionate Na Spr 16 Gm Btl) 1 sprays NA BID DAVID Stop: 04/26/21 20:59 Last Admin: 03/31/21 08:26 Dose: 1 sprays Documented by: Fluticasone/Vilanterol (Fluticasone/Vilanterol 200/25mcg 14 Puffs/Inhaler) 1 puffs INH DAILY DAVID Stop: 04/24/21 08:59 Last Admin: 03/31/21 08:25 Dose: 1 puffs Documented by: Heparin Sodium (Porcine) (Heparin Sod 5,000 Unit/0.5 Ml Vial) 5,000 units SQ Q12 DAVID Stop: 04/28/21 20:59 Last Admin: 03/31/21 08:29 Dose: Not Given Documented by: Ipratropium [place] (Ipratropium [place] Nasal [place] 0.06% 15ml) 2 sprays JANNETTE Q12 DAVID Stop: 04/26/21 20:59 Last Admin: 03/31/21 08:26 Dose: 2 sprays Documented by: Montelukast Sodium (Montelukast Sodium 10 Mg Tablet) 10 mg PO DAILY DAVID Stop: 04/24/21 08:59 Last Admin: 03/31/21 08:27 Dose: 10 mg Documented by: Pantoprazole Sodium (Pantoprazole 40 Mg Tab) 40 mg PO DAILY DAVID Stop: 04/24/21 08:59 Last Admin: 03/31/21 08:27 Dose: 40 mg Documented by: Polyethylene Glycol (Polyethylene (Miralax) 17 Gm Pack) 17 gm PO DAILY DAVID Stop: 04/23/21 13:44 Last Admin: 03/31/21 08:28 Dose: 17 gm Documented by: Prednisone (Prednisone 20 Mg Tab) 60 mg PO DAILY DAVID Stop: 04/29/21 08:59 Last Admin: 03/31/21 08:27 Dose: 60 mg Documented by: Senna/Docusate Sodium (Docusate Sodium/Senna 50/8.6mg Tab) 2 tab PO HS DAVID Stop: 04/27/21 21:04 Last Admin: 03/30/21 21:24 Dose: 2 tab Documented by: Topiramate (Topiramate 50 Mg Tab) 50 mg PO BID DAVID Stop: 04/23/21 20:59 Last Admin: 03/31/21 08:27 Dose: 50 mg Documented by: Umeclidinium [place] (Umeclidinium [place] 62.5mcg/Blister 7 Puffs/Inhaler) 1 puffs INH DAILY DAVID Stop: 04/24/21 08:59 Last Admin: 03/31/21 08:25 Dose: 1 puffs Documented by: (1) Asthma exacerbation Asthma persistence: unspecified Asthma severity: moderate Qualified Code(s): J45.901 - Unspecified asthma with (acute) exacerbation
--- NOTE | 2021-03-31 15:35 | Pulmonology Progress Note ---
Date of Service March 31, 2021 Assessment & Plan (1) Severe persistent asthma dependent on systemic steroids with acute ex acerbation: Plan: 30-year-old -[place] female with a past medical history of severe GERD status post Amadou fundoplication x2, severe persistent eosinophilic asthma, vocal cord dysfunction and chronic allergic rhinitis presenting to the hospital due to an asthma exacerbation. Severe persistent, eosinophilic mediated asthma: She has profound symptoms at baseline and her asthma is poorly controlled. She is nearly on maximal therapy. I think she would be an excellent candidate for mepolizumab therapy. Her eosinophil count was very elevated despite being on prednisone. I also think she would likely be a good candidate for steroid sparing agents given the high dose requirements of prednisone she is on chronically. She is at risk for significant complications moving forward if she remains on chronic prednisone therapy. We can consider starting her on methotrexate as an outpatient to be utilized as a steroid sparing agent. I would also recommend initiating the patient on a 4 to 6-week trial of azithromycin 250 mg daily for 5 days a week. Her QTc interval is 402 ms which is acceptable. IgE level checked on 03/26/2021 of 514 KU/L. ANCA screen negative 03/26/2021. MANISH screen and autoimmune lab testing negative on 02/25/2017. Continue pulmonary toilet with incentive spirometry and flutter valve. Peak flows ordered. She would also be a good candidate for pulmonary rehab and this was discussed with her at bedside. She is agreeable to pursuing pulmonary rehab. Additionally, I think she should be vaccinated against COVID-19 as soon as possible. Her being immunocompromised places her at significant risk for complications from a COVID-19 infection. I do not think that immunosuppression is a relative contraindication in her case, but rather is in fact a clear indication for her to get vaccinated. She would also be eligible for a booster vaccine after her 2 dose vaccination sequence. This was relayed to the patient. Would benefit from allergy and immunology follow-up as an outpatient. As above her IgE level was elevated to 514. Continue prednisone taper. Taper by 10 mg every 3 days until down to 10 milligrams. Continue her current dose of ICS/LABA/LAMA combination. GERD: Her GERD symptoms should be aggressively controlled with antireflux medicine. Allergic symptoms: Continue antihistamine and montelukast. I have added Flonase and ipratropium nasal spray. 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 She would benefit from an outpatient polysomnography to evaluate for obstructive sleep apnea. Thank you for the consultation. We will continue to follow along with you closely. (2) Asthma exacerbation: Asthma persistence: unspecified Asthma severity: moderate Qualified Code(s): J45.901 - Unspecified asthma with (acute) exacerbation (3) GERD (gastroesophageal reflux disease): (4) Shortness of breath: (5) Allergic rhinitis: Admission and Anticipated Discharge Date Admission Date: March 24, 2021 Subjective Patient seen and examined this afternoon. She feels that she is approximately 50% improved from where she was previously. She was able to ambulate hallways and desaturated to 91%. She denies any significant chest pain. She does have shortness of breath with moderate exertion. She is eager to go home and be with her children. Review of Systems Review of Systems: All systems reviewed & are unremarkable except as noted in HPI & below Physical Exam Physical Exam: Constitutional: Patient appears to be of their stated age. Patient is in no apparent distress. Patient is well-developed. Raspy voice. Eyes: Pupils are equal round and reactive to light. Conjunctivae are normal. Anicteric sclera. Ears nose, mouth and throat: Mallampati class 2. Normal posterior oropharynx. Uvula is midline. Neck: Trachea is midline. Visual inspection is normal. Respiratory: Prolonged phase of exhalation. Wheezing improved from yesterday. Cardiovascular: Regular rate and rhythm. No murmurs. No edema. Gastrointestinal: Normal bowel sounds, soft, nontender and nondistended. No hepatosplenomegaly noted. Musculoskeletal: No cyanosis. Patient is able to move all extremities. Strength is 5 out of 5 in the upper and lower extremities. Skin: No rashes, warm dry and intact. Neurologic: No obvious focal neurological deficits seen. Psychiatric: Alert and oriented x3 with a euthymic affect. Results & Data Results & Data ([facility]) Vital Signs (Past 12 Hours) Vital Signs Temp Pulse Pulse Pulse Pulse Resp Resp 03/31/21 15:20 98.6 F 74 18 03/31/21 13:40 118 H 24 03/31/21 13:38 109 H 118 H 99 H 24 03/31/21 11:23 98.2 F 107 H 16 03/31/21 10:41 86 18 03/31/21 07:29 97.7 F 69 18 03/31/21 07:13 77 15 03/31/21 04:00 97.9 F 60 18 Resp Resp BP BP Pulse Ox Pulse Ox Pulse Ox 03/31/21 15:20 134/77 96 03/31/21 13:40 96 03/31/21 13:38 24 16 95 96 03/31/21 11:23 119/75 95 03/31/21 10:41 96 03/31/21 07:29 128/86 92 03/31/21 07:13 97 03/31/21 04:00 119/74 94 Pulse Ox 03/31/21 15:20 03/31/21 13:40 03/31/21 13:38 98 03/31/21 11:23 03/31/21 10:41 03/31/21 07:29 03/31/21 07:13 03/31/21 04:00 Vital signs, labs and imaging personally reviewed PG Care Time/CCT Total # of Minutes Spent Total Time Spent with Patient: Total time spent is greater than 50% in coordination of care (as documented) at patient's floor/unit and/or counseling patient: Coding Level of Care Code 77247 Subseq Hosp Care Lvl 2 Diagnoses Severe persistent asthma dependent on systemic steroids with acute exacerbation J45.51; Z79.52 Asthma exacerbation J45.901 Asthma persistence: unspecified Asthma severity: moderate GERD (gastroesophageal reflux disease) K21.9 Shortness of breath R06.02 Allergic rhinitis J30.9
[2021-03-31] MEDS: AZITHROMYCIN 250 MG TAB PO SCH (18:23)
[2021-03-31] MEDS: DOCUSATE SODIUM/SENNA 50/8.6MG TAB PO SCH (21:38)
[2021-04-01] MEDS: ALBUTEROL 0.083% NEBU SOLN 3 ML VIAL NEB SCH ×4 (03:38→15:11)
--- NOTE | 2021-04-01 09:18 | Pulmonology Progress Note ---
Date of Service April 01, 2021 Assessment & Plan (1) Severe persistent asthma dependent on systemic steroids with acute ex acerbation: (2) Asthma exacerbation: Asthma persistence: unspecified Asthma severity: moderate Qualified Code(s): J45.901 - Unspecified asthma with (acute) exacerbation (3) GERD (gastroesophageal reflux disease): (4) Shortness of breath: (5) Allergic rhinitis: Plan: 30-year-old -[place] female with a past medical history of severe GERD status post Amadou fundoplication x2, severe persistent eosinophilic asthma, v ocal cord dysfunction and chronic allergic rhinitis presenting to the hospital due to an asthma exacerbation. --Acute exacerbation of severe persistent asthma On Symbicort 160-4.5 MCG 2 puffs twice daily On Singulair IgE level checked on 03/26/2021 of 514 KU/L. ANCA screen negative 03/26/2021. MANISH screen and autoimmune lab testing negative on 02/25/2017. --Acute hypoxic respiratory failure Secondary to above Continue with O2 supplementation to keep oxygen saturation between 90-92% Two-step prior to discharge to see if the patient is oxygen at home Plan: Continue with tapering prednisone over the next 7 days Patient is to follow-up with outpatient corporate administrator within a week or so Please add Spiriva 1.25 MCG 2 puffs on a daily basis on top of the Symbicort which the patient is taking Patient should be considered for Biologics as an outpatient. Fasenra versus Dupixent should be one of the choices Patient will benefit from rehab as an outpatient Plan was discussed with Dr. Pineda Please note the above document was generated using voice recognition software. It may contain grammatical, syntax or spelling errors.Any formal questions or concerns about the content, text or information contained within the body of this dictation should be directly addressed to the provider for clarification. Admission and Anticipated Discharge Date Admission Date: March 24, 2021 Subjective Patient seen and examined at bedside. No acute distress, no adverse events overnight. Patient says she is feeling better compared to when she came to the hospital. Shortness of breath is improved. Denies any chest pain. Does complain of exertional shortness of breath. Fair appetite. Review of Systems Review of Systems: All systems reviewed & are unremarkable except as noted in Subjective Physical Exam Physical Exam: Constitutional: No acute distress HEENT: EOMI, PERRLA Respiratory system: Good air entry bilaterally, no rhonchi, no crackles, minimal expiratory wheeze CVS: S1-S2 positive, no murmurs or gallops Abdomen: Soft, nontender, nondistended, positive bowel sounds x4 Extremities: +2 pulses bilaterally radialis/ dorsalis pedis, no cyanosis, no edema Neuro: Awake alert oriented x3 Psych: Normal mood and affect G/U: No for only Skin: no rashes, warm and dry Lymphatic: no cervical or axillary lymphadenopathy Results & Data Results & Data ([facility]) Vital Signs (Past 12 Hours) Vital Signs Temp Pulse Pulse Pulse Pulse Pulse Resp 04/01/21 08:29 110 H 87 112 H 04/01/21 07:45 88 20 04/01/21 07:38 73 04/01/21 07:35 36.7 C 64 16 04/01/21 03:40 77 18 04/01/21 03:22 36.6 C 74 17 04/01/21 02:47 81 03/31/21 23:10 107 H 16 03/31/21 23:06 37 C 76 16 Resp Resp Resp BP BP Pulse Ox Pulse Ox 04/01/21 08:29 24 22 24 97 04/01/21 07:45 97 04/01/21 07:38 04/01/21 07:35 94/61 L 98 04/01/21 03:40 96 04/01/21 03:22 105/71 97 04/01/21 02:47 03/31/21 23:10 98 03/31/21 23:06 108/72 98 Pulse Ox Pulse Ox 04/01/21 08:29 96 96 04/01/21 07:45 04/01/21 07:38 04/01/21 07:35 04/01/21 03:40 04/01/21 03:22 04/01/21 02:47 03/31/21 23:10 03/31/21 23:06 03/30/21 05:52 03/30/21 05:52 PG Care Time/CCT Total # of Minutes Spent Total Time Spent with Patient: Total time spent is greater than 50% in coordination of care (as documented) at patient's floor/unit and/or counseling patient: Coding Level of Care Code 19108 Subseq Hosp Care Lvl 2 Diagnoses Severe persistent asthma dependent on systemic steroids with acute exacerbation J45.51; Z79.52 Asthma exacerbation J45.901 Asthma persistence: unspecified Asthma severity: moderate GERD (gastroesophageal reflux disease) K21.9 Shortness of breath R06.02 Allergic rhinitis J30.9
[2021-04-01] MEDS: TOPIRAMATE 50 MG TAB PO SCH (10:10)
[2021-04-01] MEDS: predniSONE 20 MG TAB PO SCH (10:10)
[2021-04-01] MEDS: MONTELUKAST SODIUM 10 MG TABLET PO SCH (10:11)
[2021-04-01] MEDS: PANTOprazole 40 MG TAB PO SCH (10:11)
[2021-04-01] MEDS: UMECLIDINIUM BROMIDE 62.5MCG/BLISTER 7 PUFFS/INHALER INH SCH (10:11)
[2021-04-01] MEDS: FLUTICASONE/VILANTEROL 200/25MCG 14 PUFFS/INHALER INH SCH (10:11)
[2021-04-01] MEDS: FLUTICASONE PROPIONATE NA SPR 16 GM BTL SCH (10:12)
[2021-04-01] MEDS: IPRATROPIUM BROMIDE NASAL SPRAY 0.06% 15ML NAE SCH (10:12)
[2021-04-01] MEDS: POLYETHYLENE (MIRALAX) 17 GM PACK PO SCH (10:16)
[2021-04-01] MEDS: HEPARIN SOD 5,000 UNIT/0.5 ML VIAL SQ SCH (10:16)
--- NOTE | 2021-04-01 11:37 | Hospitalist Progress Note ---
Date of Service April 01, 2021 Assessment & Plan (1) Asthma exacerbation: Plan: Severe persistent asthma dependent on systemic steroids with acute exacerbation: Present on admission with worsening shortness of breath despite use of prednisone and albuterol nebulizer treatment Intubated in the past due to asthma exacerbation Chest x-ray showed no acute finding Received intravenous Solu-Medrol and nebulized treatment in ER without much improvement Currently on IV Solu-Medrol 40 mg every 12 hour will change back to IV Solu-Medrol 40 mg every 8 hour- Appreciate pulmonary input and recommendation Pulm recommended steroid sparing agent due to the chronic high-dose steroid. She might need to consider methotrexate as an outpatient will be utilized as a steroid sparing agent and also start on a trial of azithromycin 250 mg daily for 5 days a week for 4 to 6 weeks Continue Flonase and ipratropium nasal spray Recommend close follow-up with pulmonology in 5 to 7 days following discharge from the hospital We will consult ENT to evaluate for vocal cord dysfunction Patient was educated and advised about taking the COVID 19 vaccine Advised to ambulate in the room and with the help of the nurse Intravenous Solu-Medrol has been changed to oral prednisone Clinically better but he still feels short of breath with dizziness on ambulation and the saturation drops down below 90 She underwent another to do steps O2 saturation test this morning and she does not qualify for any oxygen She will be discharged home this afternoon-prednisone will be tapered as per respiratory instruction She will get PCP and pulmonary appointment as soon as possible We will advise for outpatient sleep study (2) DVT prophylaxis: Plan: -SCDs -We will start subcu heparin Admission and Anticipated Discharge Date Admission Date: March 24, 2021 Subjective 03/29/2021 The patient was seen and examined in medical telemetry unit She remains very short of breath with wheezing on minimal exertion Generally weak and lethargic and very anxious No fever and no chills 03/30/2021 The patient was seen and examined in telemetry unit She has been feeling a little better but is still remains very short of breath with minimal exertion Her wheezing is better 03/31/2021 The patient was seen and examined in medical telemetry unit She has been feeling much better but he still gets dizziness and short of breath on minimal exertion Wants to go home Required to take rest in while doing 2 steps O2 saturation test today We will stay tonight and will repeat the test tomorrow 04/01/2021 The patient was seen and examined in medical telemetry unit She has been feeling much better today and passed that to a step O2 saturation test She will be going home this afternoon Review of Systems Review of Systems: All systems reviewed and unremarkable except as noted below Respiratory: Moderate shortness of breath at rest Physical Exam Physical Exam: Lying in bed with minimal shortness of breath Constitutional: well developed, well nourished and + ill appearing Eyes: PERRL, conjunctivae normal, anicteric sclerae ENMT: external ear and nose normal, oropharynx normal Neck: trachea midline, no thyromegaly Respiratory: + tachypneic; no respiratory distress, does not use accessory muscles and no cough Auscultation: + diminished lung sounds and + wheezes (Minimal bilateral wheezing); no crackles Cardiovascular: Rate/Rhythm: regular rate and regular rhythm; not tachycardic Heart Sounds: normal S1 and normal S2; no murmur Gastrointestinal (Abdomen): normal bowel sounds, soft, nontender, no hepatosplenomegaly Musculoskeletal: Does not have any acute arthritis in any joint Neurologic: Alert, awake and oriented x3. No focal sensory and motor deficit appreciated Lymphatic: no cervical or axillary lymphadenopathy Results & Data Results & Data ([facility]) Vital Signs (Past 12 Hours) Vital Signs Temp Pulse Pulse Pulse Pulse Pulse Resp 04/01/21 11:15 36.8 C 77 16 04/01/21 10:20 04/01/21 08:29 110 H 87 112 H 04/01/21 07:45 88 20 04/01/21 07:38 73 04/01/21 07:35 36.7 C 64 16 04/01/21 03:40 77 18 04/01/21 03:22 36.6 C 74 17 04/01/21 02:47 81 Resp Resp Resp BP BP Pulse Ox Pulse Ox 04/01/21 11:15 102/69 98 04/01/21 10:20 04/01/21 08:29 24 22 24 97 04/01/21 07:45 97 04/01/21 07:38 04/01/21 07:35 94/61 L 98 04/01/21 03:40 96 04/01/21 03:22 105/71 97 04/01/21 02:47 Pulse Ox Pulse Ox Pulse Ox 04/01/21 11:15 04/01/21 10:20 96 04/01/21 08:29 96 96 04/01/21 07:45 04/01/21 07:38 04/01/21 07:35 04/01/21 03:40 04/01/21 03:22 04/01/21 02:47 Medications Administered Current Inpatient Medications Acetaminophen (Acetaminophen 325 Mg Tab) 650 mg PO Q4H PRN PRN Reason: pain/fever Stop: 04/23/21 11:45 Albuterol (Albuterol 0.083% Nebu Soln 3 Ml Vial) 2.5 mg NEB Q2R PRN PRN Reason: Shortness Of Breath Or Wheezing Stop: 04/24/21 15:59 Last Admin: 03/29/21 01:24 Dose: 2.5 mg Documented by: Albuterol (Albuterol 0.083% Nebu Soln 3 Ml Vial) 2.5 mg NEB Q4R DAVID Stop: 04/27/21 10:59 Last Admin: 04/01/21 11:33 Dose: 2.5 mg Documented by: Azithromycin (Azithromycin 250 Mg Tab) 250 mg PO Q24H DVAID Stop: 04/01/21 16:59 Last Admin: 03/31/21 18:23 Dose: 250 mg Documented by: Fluticasone Propionate (Fluticasone Propionate Na Spr 16 Gm Btl) 1 sprays NA BID DAVID Stop: 04/26/21 20:59 Last Admin: 04/01/21 10:12 Dose: 1 sprays Documented by: Fluticasone/Vilanterol (Fluticasone/Vilanterol 200/25mcg 14 Puffs/Inhaler) 1 puffs INH DAILY DAVID Stop: 04/24/21 08:59 Last Admin: 04/01/21 10:11 Dose: 1 puffs Documented by: Heparin Sodium (Porcine) (Heparin Sod 5,000 Unit/0.5 Ml Vial) 5,000 units SQ Q12 DAVID Stop: 04/28/21 20:59 Last Admin: 04/01/21 10:16 Dose: Not Given Documented by: Ipratropium Gravette (Ipratropium Gravette Nasal Penrose 0.06% 15ml) 2 sprays JANNETTE Q12 DAVID Stop: 04/26/21 20:59 Last Admin: 04/01/21 10:12 Dose: 2 sprays Documented by: Montelukast Sodium (Montelukast Sodium 10 Mg Tablet) 10 mg PO DAILY DAVID Stop: 04/24/21 08:59 Last Admin: 04/01/21 10:11 Dose: 10 mg Documented by: Pantoprazole Sodium (Pantoprazole 40 Mg Tab) 40 mg PO DAILY DAVID Stop: 04/24/21 08:59 Last Admin: 04/01/21 10:11 Dose: 40 mg Documented by: Polyethylene Glycol (Polyethylene (Miralax) 17 Gm Pack) 17 gm PO DAILY DAVID Stop: 04/23/21 13:44 Last Admin: 04/01/21 10:16 Dose: 17 gm Documented by: Prednisone (Prednisone 20 Mg Tab) 60 mg PO DAILY DAVID Stop: 04/29/21 08:59 Last Admin: 04/01/21 10:10 Dose: 60 mg Documented by: Senna/Docusate Sodium (Docusate Sodium/Senna 50/8.6mg Tab) 2 tab PO HS DAVID Stop: 04/27/21 21:04 Last Admin: 03/31/21 21:38 Dose: 2 tab Documented by: Topiramate (Topiramate 50 Mg Tab) 50 mg PO BID DAVID Stop: 04/23/21 20:59 Last Admin: 04/01/21 10:10 Dose: 50 mg Documented by: Umeclidinium Gravette (Umeclidinium Gravette 62.5mcg/Blister 7 Puffs/Inhaler) 1 puffs INH DAILY DAVID Stop: 04/24/21 08:59 Last Admin: 04/01/21 10:11 Dose: 1 puffs Documented by: (1) Asthma exacerbation Asthma persistence: unspecified Asthma severity: moderate Qualified Code(s): J45.901 - Unspecified asthma with (acute) exacerbation
--- NOTE | 2021-04-02 08:36 | Discharge Summary ---
Date of Service April 02, 2021 Admission HPI Per Admitting Provider 30-year-old female with PMH asthma, GERD, idiopathic intracranial hypertension, migraines, and other problems listed below who presents the ED for evaluation of shortness of breath and wheezing. Patient reports symptoms have been ongoing for the past 1 week. She has been on prednisone and increased rescue inhaler use without any improvement. Denies productive cough. No fevers or chills. Denies chest pain. No lightheadedness, dizziness, diaphoresis, syncopal events. Denies abdominal pain, nausea, vomiting, diarrhea. No urinary symptoms. In the ED, patient received 3 nebulizer treatments and IV Solu-Medrol and continues to have wheezing on exam. She is saturating well on room air. Labs are unremarkable. Admission Exam Per Admitting Provider Constitutional: WD/WN, vitals as above Eyes: PERRL, conjunctivae normal, anicteric sclerae ENMT: external ear and nose normal, oropharynx normal Respiratory: normal respiratory effort; no respiratory distress Auscultation: + wheezes (Throughout all lung sagastume, inspiratory and expiratory) Cardiovascular: Rate/Rhythm: regular rhythm and + tachycardic Vessels: normal peripheral pulses Extremities: no edema Gastrointestinal (Abdomen): normal bowel sounds, soft, nontender, no hepatosplenomegaly Musculoskeletal: no cyanosis or clubbing, extremities motor strength 5/5 Skin: no rashes, warm and dry Neurologic: PERRL, EOMI, accommodation nl, no face palsy, no dysarthria Psychiatric: A+Ox3, euthymic affect Principal Diagnosis Severe persistent asthma with exacerbation. Steroid dependent, allergic rhinitis Discharge Exam Constitutional well developed, well nourished and + ill appearing Eyes PERRL, conjunctivae normal, anicteric sclerae ENMT external ear and nose normal, oropharynx normal Neck trachea midline, no thyromegaly Respiratory + tachypneic; no respiratory distress, does not use accessory muscles and no cough Auscultation: + diminished lung sounds and + wheezes (Minimal bilateral wheezing); no crackles Cardiovascular Rate/Rhythm: regular rate and regular rhythm; not tachycardic Heart Sounds: normal S1 and normal S2; no murmur Gastrointestinal (Abdomen) normal bowel sounds, soft, nontender, no hepatosplenomegaly Lymphatic no cervical or axillary lymphadenopathy Discharge Data Allergies Allergy/AdvReac Type Severity Reaction Status Date / Time Sulfa (Sulfonamide Allergy Intermediate Hives Verified 03/24/21 01:44 Antibiotics) sulfamethoxazole Allergy Intermediate HIVES Verified 03/24/21 01:44 trimethoprim Allergy Intermediate HIVES Verified 03/24/21 01:44 Consultations 03/24/21 07:25 ED Decision to Admit Stat 03/24/21 11:46 Consult Pulmonology Routine 03/28/21 16:43 Consult Otolaryngology (Head and Neck) Routine Hospital Course (1) Asthma exacerbation: Severe persistent asthma dependent on systemic steroids with acute exacerbation: Present on admission with worsening shortness of breath despite use of prednisone and albuterol nebulizer treatment Intubated in the past due to asthma exacerbation Chest x-ray showed no acute finding Received intravenous Solu-Medrol and nebulized treatment in ER without much improvement Currently on IV Solu-Medrol 40 mg every 12 hour will change back to IV Solu-Medrol 40 mg every 8 hour- Appreciate pulmonary input and recommendation Pulm recommended steroid sparing agent due to the chronic high-dose steroid. She might need to consider methotrexate as an outpatient will be utilized as a steroid sparing agent and also start on a trial of azithromycin 250 mg daily for 5 days a week for 4 to 6 weeks Continue Flonase and ipratropium nasal spray Recommend close follow-up with pulmonology in 5 to 7 days following discharge from the hospital We will consult ENT to evaluate for vocal cord dysfunction Patient was educated and advised about taking the COVID 19 vaccine Advised to ambulate in the room and with the help of the nurse Intravenous Solu-Medrol has been changed to oral prednisone Clinically better but he still feels short of breath with dizziness on ambulation and the saturation drops down below 90 She underwent another to do steps O2 saturation test this morning and she does not qualify for any oxygen She will be discharged home this afternoon-prednisone will be tapered as per respiratory instruction She will get PCP and pulmonary appointment as soon as possible We will advise for outpatient sleep study (2) DVT prophylaxis: -SCDs -We will start subcu heparin Total Time Total Time Spent Total Time Spent (In Minutes): 40 minutes Discharge Plan Discharge Items Patient Disposition: Home - Self-Care Reason For Visit: ASHTMA EXACERBATION Discharge Diagnosis: Severe persistent asthma with exacerbation. Steroid dependent, allergic rhinitis Condition on Discharge: Fair Activity: Resume your previous activity Activity Comment: Take it easy Non-emergency contact: Primary Care Provider Call non-emergency contact if: you have any medication questions and your symptoms worsen Follow-up/Referrals: Lynette Jorge DO [Primary Care Provider] - (Date & Time 04/05/2021 11:00 AM Provider Dasha Echevarria MD Department Family Practice [facility] ) Sai Marina MD [Outside Practitioners] - (Date & Time 07/25/2021 10:00 AM Provider Sai Marina MD Department Pulmonary Medicine, [facility] I have requested an earlier appointment with pulmonology. The office will be calling you with an earlier appointment.) Diet: Regular Addtl Attending Provider Instructions: Please take precautions to avoid fall Use your oxygen as advised with exertion Usual medications as advised and try to use less of nebulized bronchodilators Finish the course of prednisone as advised You will need to have COVID-19 vaccination as soon as possible through your primary care physician Keep your appointment with the mop machine operator You need to have a sleep study done as an outpatient to rule out any sleep apnea Pending Studies at Discharge: No Stand-Alone Forms: My [facility], Smoking Cessation Medications and DC Order Prescriptions: New azithromycin 250 mg Tablet 250 mg PO Q24H 30 Days Qty: 30 RF: 0 prednisone 10 mg tablet 10 mg PO UD Qty: 60 RF: 0 Spiriva Respimat 1.25 mcg/actuation mist 2 inh inhalation DAILY Qty: 4 RF: 0 Continued topiramate 50 mg tablet 50 mg PO BID 30 Days Qty: 60 RF: 2 Xolair 150 mg recon soln 150 mg subcut UD RF: 0 albuterol sulfate 90 mcg/actuation HFA aerosol inhaler 2 puff inhalation Q4H PRN (Reason: Cough/Wheeze or SOB) RF: 0 multivitamin Tablet 1 tab PO QAM RF: 0 Probiotic 3 billion cell Capsule 3,000 mmu cells PO QAM RF: 0 polyethylene glycol 3350 [Miralax] 17 gram/dose Powder 17 g PO DAILY RF: 0 pseudoephedrine HCl [Suphedrine] 30 mg tablet 60 mg PO BID PRN (Reason: Congestion) RF: 0 albuterol sulfate 2.5 mg /3 mL (0.083 %) solution for nebulization 2.5 mg inhalation Q4H PRN (Reason: Wheezing) RF: 0 budesonide-formoterol [Symbicort] 160-4.5 mcg/actuation Hfa Aerosol Inhaler 2 puff INHALATION BID RF: 0 montelukast [Singulair] 10 mg Tablet 10 mg PO DAILY Qty: 30 RF: 2 Incruse Ellipta 62.5 mcg/actuation Blister With Device 1 puff inhalation DAILY Qty: 1 RF: 2 omeprazole 20 mg capsule,delayed release(DR/EC) 20 mg PO DAILY Qty: 60 RF: 0 Discharge Orders: Discharge Order (Routine); Ordered 04/01/21 Ordered By: Nadine Pineda Admission Data Admit Date/Time: 03/24/21 08:03 Attending Provider: Nadine Pineda Admit Provider: Aaron Lees Primary Care Provider: Lynette Jorge Other Providers: Lb Dean ; Luis Gabriel ; Gonzales Lund ; Aaron Lees Other Interventions: Discharge Summary Assessment (RN) Last Done: 04/01/21 14:36
== END 2021-04-01 15:20 | disposition home or self-care (01) | DRG 202 ==
LOC: ED 00:34 → 2N 08:03 → SUATTDRO 08:03 → 2N 11:13
DX: J96.01 Acute respiratory failure with hypoxia; Z83.3 Family history of diabetes mellitus; Z88.8 Allergy status to other drugs, medicaments and biological substances; G43.909 Migraine, unspecified, not intractable, without status migrainosus; Z88.2 Allergy status to sulfonamides; K21.9 Gastro-esophageal reflux disease without esophagitis; J45.51 Severe persistent asthma with (acute) exacerbation; G93.2 Benign intracranial hypertension; D84.9 Immunodeficiency, unspecified; Z79.52 Long term (current) use of systemic steroids

== ENCOUNTER 2022-08-11 07:26 | Observation (INO) ==
[2022-08-11] MEDS ORDERED: SODIUM CHLORIDE 0.9% 500 ML IV STA (07:51)
[2022-08-11] MEDS ORDERED: EPINEPHrine INJ 1 MG/ML AMP IM STA (07:51)
[2022-08-11] MEDS ORDERED: ALBUT/IPRATROP 3MG/0.5MG NEB 3 ML VIAL NEB STA (07:51)
[2022-08-11] MEDS ORDERED: MAGNESIUM SULFATE 1GM / D5W BAG IV STA (07:51)
[2022-08-11] MEDS ORDERED: dexAMETHasone**PF** 10 MG/ML VIAL IV ONE (07:51)
--- NOTE | 2022-08-11 08:01 | Emergency Department Note ---
Impression & Plan Severe persistent asthma dependent on systemic steroids with acute exacerbation ED Provider Note INFORMANT: [Patient] ED PROVIDER(S): Grant Medeiros DO CHIEF COMPLAINT: Asthma exacerbation PLAN: Disposition: I spoke with the hospitalist, who will see the patient for admission/observation and further evaluation and consultation. Condition: [Good] Outpatient prescription management: [none] Referral: I spoke with the hospitalist, who will see the patient for admission/observation and further evaluation and consultation. MEDICAL DECISION MAKING: [Brief summary----Positive exam findings & VS----Test Results---Interventions---Consults/Case mgnt discussions---Decisions not to test/admit/transfer---Remember additional problems---list any social risk factors] This is a 32-year-old female presents to the ED with a chief complaint of asthma exacerbation. The patient states that she has been having some issues with asthma for the past couple of weeks. More recently over the past day or 2 she has gotten significantly worse. She states that she is on maintenance prednisone 10 mg daily. She took 60 yesterday. Denies any cold symptoms. She thinks the asthma exacerbation is related to the weather. She used a continuous nebulizer this morning at 4 AM without much relief. Her physical exam reveals diminished breath sounds bilaterally with expiratory wheezing bilaterally. Blood pressure is elevated. Ox saturations are 97% on room air. The patient's chest x-ray was negative for acute disease. A VBG shows a pH of 7.3 and PCO2 of 53. PaO2 was 38. CBC chemistry panel was unremarkable. Viral panel was negative. The patient was treated with a 1 hour DuoNeb treatment. She was also given 2 g IV magnesium, 0.3 mg IM epinephrine and 10 mg IV Decadron. On reassessment, she is still tight and wheezy. She was given another 1 hour nebulizer treatment. Because of no significant improvement, the patient will be seen by the hospitalist for further inpatient evaluation and care. Triage Nursing notes reviewed. Vital Signs: reviewed Prior /Outside records reviewed: Pulmonary progress note from 04/01/2021 reviewed. Differential diagnosis: Differential includes asthma exacerbation viral syndrome, pneumonia, pneumoth orax, other Diagnostics, as interpreted by me: 12 lead ECG: [none] Cardiac Monitoring: Monitor shows a sinus rhythm in the 80s. No arrhythmia. Medical decision rules: [none] Imaging studies: Chest x-ray: No acute disease. No pneumonia or pneumothorax. Procedures: VBG: The patient's VBG shows a pH of 7.3/53/38. Respiratory acidosis. Critical care: I have personally spent 30 minutes of critical care time in the direct management of this patient. This includes bedside care, interpretation of diagnostic studies, and testing, discussion with consultants, patient, and family members, and other required patient management activities. This 30 minutes is in excess of all separately billable procedures. HPI:This is a 32-year-old female presents to the ED with a chief complaint of asthma exacerbation. The patient states that she has been having some issues with asthma for the past couple of weeks. More recently over the past day or 2 she has gotten significantly worse. She states that she is on maintenance prednisone 10 mg daily. She took 60 yesterday. Denies any cold symptoms. She thinks the asthma exacerbation is related to the weather. She used a continuous nebulizer this morning at 4 AM without much relief. PAST MEDICAL HISTORY: See Below PAST SURGICAL HISTORY: See Below SOCIAL HISTORY: See Below HOME MEDICATIONS: See Below ALLERGIES: See Below VITALS: See Below PHYSICAL EXAMINATION: CONSTITUTIONAL/VITAL SIGNS: Reviewed GENERAL: Non-toxic in appearance. INTEGUMENTARY: Warm, dry, and [place]. HEAD: Normocephalic. EYES: without scleral icterus. ENT/OROPHARYNX: clear and moist. RESPIRATORY: Moderate increased work of breathing. Lungs diminished with expiratory wheezing. CARDIOVASCULAR: Regular rate. Regular rhythm. GI/ABDOMEN: Soft and nontender. EXTREMITIES: Normal BACK: Normal. NEUROLOGICAL: Intact without focal deficits. PSYCHIATRIC: Normal affect. MUSCULOSKELETAL: Normal. TRIAGE NURSING DOCUMENTATION REVIEWED. Past Med/Surg History Medical History Allergic rhinitis Asthma inhalers daily/prn, nebulizer prn Asthma exacerbation recently admitted @ [facility] 03/24/21--currently on tapered prednisone Demyelinating disease GERD (gastroesophageal reflux disease) Idiopathic intracranial hypertension NO MEDS AT CURRENT FOLLOW WITH [facility] Iron deficiency anemia Migraines Severe persistent asthma dependent on systemic steroids with acute exacerbation Vocal cord dysfunction age 16 Surgical History History of bronchoscopy History of section History of dilatation and curettage History of esophagogastroduodenoscopy (EGD) History of Amadou fundoplication Family History Family/Other Family history of diabetes mellitus Father Asthma Grandmother (Paternal) Asthma Brother Cancer Grandfather (Maternal) Hypertension Brother Liver disease Mother Lupus Sister Family history of PCOS Aunt Spina bifida Other No family history of adverse response to anesthesia Social History Smoking Status: Never smoker Second Hand Exposure: No; Hx Alcohol Use: No Hx Substance Use: No Preferred Language: Albanian Communication Ability: Effective Clinical Staff Rn Required: No Beliefs That Will Affect Care: None marital status: Current Living Situation: Family Current Living Situation Comment: Lives with children Feels Safe at Home: Yes Assistive Devices: Contacts, Glasses and Nebulizer Allergies Allergies Allergy/AdvReac Type Severity Reaction Status Date / Time nickel Allergy Intermediate skin Verified 05/29/22 08:36 becomes raw/tender Sulfa (Sulfonamide Allergy Intermediate Hives Verified 05/29/22 08:36 Antibiotics) sulfamethoxazole Allergy Intermediate HIVES Verified 05/29/22 08:36 trimethoprim Allergy Intermediate HIVES Verified 05/29/22 08:36 Home Meds Home Medications Medication Instructions Recorded Confirmed albuterol sulfate 90 mcg/actuation 2 puff inhalation Q4H PRN 01/10/19 05/29/22 aerosol inhaler Cough/Wheeze or SOB lactobacillus combination no.4 3 3,000 mmu cells PO QAM 08/19/19 05/29/22 billion cell capsule (Probiotic) multivitamin 1 tab PO QAM 08/19/19 05/29/22 omalizumab 150 mg subcutaneous 150 mg subcut MONTHLY 09/14/20 05/29/22 solution (Xolair) budesonide-formoterol HFA 160 2 puff inhalation BID 12/26/20 05/29/22 mcg-4.5 mcg/actuation aerosol inhaler (Symbicort) polyethylene glycol 3350 17 17 g PO QAM 03/24/21 05/29/22 gram/dose oral powder (Miralax) montelukast 10 mg tablet 10 mg PO QAM 04/17/21 05/29/22 (Singulair) omeprazole 20 mg capsule,delayed 20 mg PO QAM 04/17/21 05/29/22 release tiotropium bromide 1.25 2 inh inhalation QAM 04/17/21 05/29/22 mcg/actuation mist for inhalation (Spiriva Respimat) umeclidinium 62.5 mcg/actuation 1 puff inhalation QAM 04/17/21 05/29/22 blister powder for inhalation (Incruse Ellipta) loratadine 10 mg tablet (Claritin) 10 mg PO DAILY 04/24/21 05/29/22 Previous Rx's Medication Instructions Recorded ascorbate calcium (vitamin C) 500 500 mg PO DAILY #30 tabs 05/30/21 mg tablet ferrous sulfate 325 mg (65 mg 325 mg PO DAILY #30 tabs 05/30/21 iron) tablet topiramate 100 mg tablet (Topamax) 100 mg PO BID 30 days #60 tabs 05/29/22 rizatriptan 10 mg disintegrating 10 mg PO .COMPLEX PRN migraine 05/30/22 tablet headache 30 days #9 tabs Results & Data (ED) Vital Signs Vital Signs - 24 hr 08/11/22 07:38 08/11/22 07:52 08/11/22 08:17 Temperature 36.4 C L Temperature Source Temporal Artery Scan Pulse Rate 83 Pulse Rate [Apical] 80 Pulse Rhythm Regular Pulse Strength Normal Respiratory Rate 32 H 18 Respiratory Effort / Characteristics Spontaneous Accessory Muscle Use Short of Breath SOB on Exertion Accessory Muscle Use Short of Breath Respiratory Depth Retractive Respiratory Pattern Tachypnea Irregular Blood Pressure [Right Arm] 186/96 H Blood Pressure Mean [Right Arm] 126 Pulse Oximetry 97 97 Oxygen Delivery Method Room Air Room Air Nebulizer Sepsis Recent Fever Within 48 Hours No Sepsis New/Unexplained Change in Mental Status No Sepsis Action Taken by Nursing No Action Required 08/11/22 08:17 08/11/22 08:17 08/11/22 08:20 Temperature Temperature Source Pulse Rate Pulse Rate [Apical] Pulse Rhythm Pulse Strength Respiratory Rate Respiratory Effort / Characteristics Respiratory Depth Respiratory Pattern Blood Pressure [Right Arm] Blood Pressure Mean [Right Arm] Pulse Oximetry 100 Oxygen Delivery Method Nebulizer Nebulizer Nebulizer Sepsis Recent Fever Within 48 Hours Sepsis New/Unexplained Change in Mental Status Sepsis Action Taken by Nursing 08/11/22 09:20 08/11/22 10:09 Temperature Temperature Source Pulse Rate Pulse Rate [Apical] 95 H 84 Pulse Rhythm Pulse Strength Respiratory Rate 18 20 Respiratory Effort / Characteristics Short of Breath Short of Breath Respiratory Depth Respiratory Pattern Irregular Blood Pressure [Right Arm] 124/81 Blood Pressure Mean [Right Arm] 95 Pulse Oximetry 97 98 Oxygen Delivery Method Room Air Room Air Sepsis Recent Fever Within 48 Hours Sepsis New/Unexplained Change in Mental Status Sepsis Action Taken by Nursing Laboratory Data Result diagrams: 08/11/22 07:53 08/11/22 07:53 Lab Results 08/11/22 08/11/22 08/11/22 Range/Units 07:53 07:53 08:25 WBC 8.39 (4.8-10.8) K/ul RBC 4.70 (3.93-5.22) M/uL Hgb 12.8 (12.0-16.0) g/dl Hct 39.2 (34.1-44.9) % MCV 83.4 (80.0-100.0) fL MCH 27.2 (25.0-34.0) pg MCHC 32.7 (32.0-36.0) g/dL RDW Std Deviation 47.4 H (36.4-46.3) fL RDW Coeff of Camryn 15.5 H (11.5-14.5) % Plt Count 329 (130-400) K/uL MPV 10.0 (9.4-12.3) fL Immature Gran % (Auto) 0.2 % Neut % (Auto) 52.5 % Lymph % (Auto) 35.4 % Bremer % (Auto) 7.0 % Eos % (Auto) 3.9 % Baso % (Auto) 1.0 % Neut # (Auto) 4.40 (1.4-6.5) K/uL Lymph # (Auto) 2.97 (1.2-3.4) K/uL Bremer # (Auto) 0.59 (0.24-0.82) K/uL Eos # (Auto) 0.33 (0-0.50) K/uL Baso # (Auto) 0.08 (0-0.2) K/uL Immature Gran # (Auto) 0.02 (0.00-0.02) K/uL VBG pH (7.36-7.41) VBG pCO2 (38-50) mmHg VBG pO2 mmHg VBG HCO3 mmol/L VBG O2 Saturation % VBG Base Excess mEq/L Sodium 139 (136-145) mmol/L Potassium 3.6 (3.5-5.1) mmol/L Chloride 106 (98-107) mmol/L Carbon Dioxide 29 (21-32) mmol/L Anion Gap 4 (3-11) BUN 12 (6-23) mg/dl Creatinine 0.87 (0.6-1.2) mg/dl Est Cr Clr Drug Dosing Not Reportable Est GFR ( Amer) 102.9 ml/min Est GFR (Non-Af Amer) 88.8 ml/min BUN/Creatinine Ratio 13.8 (10-20) Glucose 99 (70-99(Fasting)) mg/dl Calcium 9.0 (8.5-10.1) mg/dl Adenovirus (PCR) Not Detected (NotDetected) B. pertussis DNA (PCR) Not Detected (NotDetected) B.parapertussis DNA PCR Not Detected (NotDetected) C. pneumoniae DNA (PCR) Not Detected (NotDetected) Coronavirus OC43 (PCR) Not Detected (NotDetected) Coronavirus HKU1 (PCR) Not Detected (NotDetected) Coronavirus 229E (PCR) Not Detected (NotDetected) SARS-CoV-2 (PCR) Not Detected (NotDetected) Coronavirus NL63 (PCR) Not Detected (NotDetected) Human Metapneumovir PCR Not Detected (NotDetected) Influenza Type A (PCR) Not Detected (NotDetected) Influenza Type B (PCR) Not Detected (NotDetected) M. pneumoniae (PCR) Not Detected (NotDetected) Parainfluenza 1 (PCR) Not Detected (NotDetected) Parainfluenza 2 (PCR) Not Detected (NotDetected) Parainfluenza 3 (PCR) Not Detected (NotDetected) Parainfluenza 4 (PCR) Not Detected (NotDetected) RSV (PCR) Not Detected (NotDetected) Entero/Rhino (PCR) Not Detected (NotDetected) 08/11/22 Range/Units 08:40 WBC (4.8-10.8) K/ul RBC (3.93-5.22) M/uL Hgb (12.0-16.0) g/dl Hct (34.1-44.9) % MCV (80.0-100.0) fL MCH (25.0-34.0) pg MCHC (32.0-36.0) g/dL RDW Std Deviation (36.4-46.3) fL RDW Coeff of Camryn (11.5-14.5) % Plt Count (130-400) K/uL MPV (9.4-12.3) fL Immature Gran % (Auto) % Neut % (Auto) % Lymph % (Auto) % [place] % (Auto) % Eos % (Auto) % Baso % (Auto) % Neut # (Auto) (1.4-6.5) K/uL Lymph # (Auto) (1.2-3.4) K/uL [place] # (Auto) (0.24-0.82) K/uL Eos # (Auto) (0-0.50) K/uL Baso # (Auto) (0-0.2) K/uL Immature Gran # (Auto) (0.00-0.02) K/uL VBG pH 7.31 L (7.36-7.41) VBG pCO2 53 H (38-50) mmHg VBG pO2 38 mmHg VBG HCO3 27 mmol/L VBG O2 Saturation 62.9 % VBG Base Excess -0.4 mEq/L Sodium (136-145) mmol/L Potassium (3.5-5.1) mmol/L Chloride (98-107) mmol/L Carbon Dioxide (21-32) mmol/L Anion Gap (3-11) BUN (6-23) mg/dl Creatinine (0.6-1.2) mg/dl Est Cr Clr Drug Dosing Est GFR ( Amer) ml/min Est GFR (Non-Af Amer) ml/min BUN/Creatinine Ratio (10-20) Glucose (70-99(Fasting)) mg/dl Calcium (8.5-10.1) mg/dl Adenovirus (PCR) (NotDetected) B. pertussis DNA (PCR) (NotDetected) B.parapertussis DNA PCR (NotDetected) C. pneumoniae DNA (PCR) (NotDetected) Coronavirus OC43 (PCR) (NotDetected) Coronavirus HKU1 (PCR) (NotDetected) Coronavirus 229E (PCR) (NotDetected) SARS-CoV-2 (PCR) (NotDetected) Coronavirus NL63 (PCR) (NotDetected) Human Metapneumovir PCR (NotDetected) Influenza Type A (PCR) (NotDetected) Influenza Type B (PCR) (NotDetected) M. pneumoniae (PCR) (NotDetected) Parainfluenza 1 (PCR) (NotDetected) Parainfluenza 2 (PCR) (NotDetected) Parainfluenza 3 (PCR) (NotDetected) Parainfluenza 4 (PCR) (NotDetected) RSV (PCR) (NotDetected) Entero/Rhino (PCR) (NotDetected) Administered Medications Discontinued Medications Albuterol (Albut/Ipratrop 3mg/0.5mg Neb 3 Ml Vial) 12 ml NEB ONE STA Stop: 08/11/22 07:52 Last Admin: 08/11/22 08:02 Dose: 12 ml Documented By: FAUSTO Albuterol (Albut/Ipratrop 3mg/0.5mg Neb 3 Ml Vial) 12 ml NEB ONE ONE; Protocol Stop: 08/11/22 10:10 Last Admin: 08/11/22 10:26 Dose: 12 ml Documented By: FAUSTO Dexamethasone Sodium Phosphate (DexamethasonePf 10 Mg/Ml Vial) 10 mg IV NOW ONE Stop: 08/11/22 07:52 Last Admin: 08/11/22 08:02 Dose: 10 mg Documented By: FAUSTO Epinephrine HCl (Epinephrine Inj 1 Mg/Ml Amp) 0.3 mg IM NOW STA Stop: 08/11/22 07:52 Last Admin: 08/11/22 08:07 Dose: 0.3 mg Documented By: FAUSTO Sodium Chloride (Nss) 500 mls @ 999 mls/hr IV .Q31M STA Stop: 08/11/22 08:21 Last Admin: 08/11/22 08:02 Dose: 999 mls/hr Documented By: FAUSTO Magnesium Sulfate/Dextrose (Magnesium Sulfate 1gm / D5w Bag) 2 gm IV NOW STA Stop: 08/11/22 07:52 Last Admin: 08/11/22 08:11 Dose: 2 gm Documented By: FAUSTO Imaging Data Radiologist's Impression: Chest X-Ray 08/11/22 07:51 XR chest 1V portable HISTORY: 32 years-old Female dyspnea acute shortness of breath COMPARISON: Chest radiograph 03/24/2021 TECHNIQUE: AP view of the chest FINDINGS: Cardiomediastinal and hilar silhouettes are within normal limits. No pneumothorax, pleural effusion, airspace consolidation or overt pulmonary edema. Bones of the chest appear grossly intact. IMPRESSION: No acute process. ACT 112: Negative or not required by law. The above report was generated using voice recognition software. It may contain grammatical, syntax or spelling errors. Electronically signed by: Suraj Cornejo M.D. 08/11/2022 8:45 AM Discharge Plan Visit Data Chief Complaint: Asthma Stated Complaint: COUGH, ED Provider: Grant Medeiros Discharge Problem: Severe persistent asthma dependent on systemic steroids with acute exacerbation Patient Disposition: Being Evaluated by Hospitalist Forms Stand Alone Forms: [facility] Prescriptions Prescriptions: No Action ferrous sulfate 325 mg (65 mg iron) tablet 325 mg PO DAILY Qty: 30 0RF ascorbate calcium (vitamin C) 500 mg tablet 500 mg PO DAILY Qty: 30 0RF rizatriptan 10 mg tablet,disintegrating 10 mg PO .COMPLEX PRN (Reason: migraine headache) 30 Days Qty: 9 5RF Rx Instructions: take 1 tab at onset of headache;if no relief may repeat 1 tab after at least 2 hrs;max 3 tabs/24 hr PRN Xolair 150 mg recon soln 150 mg subcut MONTHLY topiramate [Topamax] 100 mg tablet 100 mg PO BID 30 Days Qty: 60 5RF albuterol sulfate 90 mcg/actuation HFA aerosol inhaler 2 puff inhalation Q4H PRN (Reason: Cough/Wheeze or SOB) multivitamin Tablet 1 tab PO QAM Probiotic 3 billion cell Capsule 3,000 mmu cells PO QAM polyethylene glycol 3350 [Miralax] 17 gram/dose Powder 17 g PO QAM budesonide-formoterol [Symbicort] 160-4.5 mcg/actuation Hfa Aerosol Inhaler 2 puff INHALATION BID omeprazole 20 mg capsule,delayed release(DR/EC) 20 mg PO QAM montelukast [Singulair] 10 mg tablet 10 mg PO QAM Incruse Ellipta 62.5 mcg/actuation blister with device 1 puff inhalation QAM Spiriva Respimat 1.25 mcg/actuation mist 2 inh inhalation QAM loratadine [Claritin] 10 mg Tablet 10 mg PO DAILY Referrals Referrals: Lynette Jorge DO [Primary Care Provider] -
[2022-08-11 08:05] LABS: Basophils # (auto) 0.08 K/uL (0-0.2); Eosinophils # (auto) 0.33 K/uL (0-0.50); Eosinophils % (auto) 3.9 %; Hematocrit (blood only) 39.2 % (34.1-44.9); Hemoglobin 12.8 g/dl (12.0-16.0); Immature Granulocytes # (auto) 0.02 K/uL (0.00-0.02); Immature Granulocytes % (auto) 0.2 %; Lymphocytes # (auto) 2.97 K/uL (1.2-3.4); Lymphocytes % (auto) 35.4 %; Mean Corpuscular Hemoglobin 27.2 pg (25.0-34.0); Mean Corpuscular Hgb Conc 32.7 g/dL (32.0-36.0); Mean Corpuscular Volume 83.4 fL (80.0-100.0); Monocytes # (auto) 0.59 K/uL (0.24-0.82); Neutrophils % (auto) 52.5 %; Platelet Count 329 K/uL (130-400); RDW Coefficient of Variation 15.5 % (11.5-14.5); RDW Standard Deviation 47.4 fL (36.4-46.3); White Blood Count 8.39 K/ul (4.8-10.8)
[2022-08-11 08:29] LABS: Anion Gap 4 (3-11); BUN Creatinine Ratio 13.8 (10-20); Blood Urea Nitrogen 12 mg/dl (6-23); Carbon Dioxide 29 mmol/L (21-32); Chloride 106 mmol/L (98-107); Est GFR (African American) 102.9 ml/min; Est GFR (Non-African American) 88.8 ml/min; Glucose 99 mg/dl (70-99(Fasting)); Potassium 3.6 mmol/L (3.5-5.1); Sodium 139 mmol/L (136-145)
--- NOTE | 2022-08-11 08:46 | XRay Report ---
XR chest 1V portable HISTORY: 32 years-old Female dyspnea acute shortness of breath COMPARISON: Chest radiograph 03/24/2021 TECHNIQUE: AP view of the chest FINDINGS: Cardiomediastinal and hilar silhouettes are within normal limits. No pneumothorax, pleural effusion, airspace consolidation or overt pulmonary edema. Bones of the chest appear grossly intact. IMPRESSION: No acute process. ACT 112: Negative or not required by law. The above report was generated using voice recognition software. It may contain grammatical, syntax o r spelling errors. Electronically signed by: Suraj Cornejo M.D. 08/11/2022 8:45 AM
[2022-08-11 08:54] LABS: Base Excess VBG -0.4 mEq/L; HCO3 VBG 27 mmol/L; Oxygen Saturation VBG 62.9 %; PCO2 VBG 53 mmHg (38-50); PO2 VBG 38 mmHg; pH VBG 7.31 (7.36-7.41)
[2022-08-11 09:41] LABS: Adenovirus PCR Not Detected (NotDetected); Bordetella parapertussis PCR Not Detected (NotDetected); Bordetella pertussis PCR Not Detected (NotDetected); Chlamydia pneumoniae PCR Not Detected (NotDetected); Coronavirus 229E PCR Not Detected (NotDetected); Coronavirus CoV-2 (COVID19)PCR Not Detected (NotDetected); Coronavirus HKU1 PCR Not Detected (NotDetected); Coronavirus NL63 PCR Not Detected (NotDetected); Coronavirus OC43PCR Not Detected (NotDetected); Human Metapneumovirus PCR Not Detected (NotDetected); Influenza A PCR Not Detected (NotDetected); Influenza B PCR Not Detected (NotDetected); Mycoplasma pneumoniae PCR Not Detected (NotDetected); Parainfluenza Virus 1 PCR Not Detected (NotDetected); Parainfluenza Virus 2 PCR Not Detected (NotDetected); Parainfluenza Virus 3 PCR Not Detected (NotDetected); Parainfluenza Virus 4 PCR Not Detected (NotDetected); Respiratory Syncytial VirusPCR Not Detected (NotDetected); Rhinovirus/Enterovirus PCR Not Detected (NotDetected)
[2022-08-11] MEDS ORDERED: ALBUT/IPRATROP 3MG/0.5MG NEB 3 ML VIAL NEB ONE (10:09)
--- NOTE | 2022-08-11 10:34 | History & Physical Report ---
Date of Service August 11, 2022 Assessment & Plan (1) Severe persistent asthma dependent on systemic steroids with acute ex acerbation: (2) Allergic rhinitis: (3) Shortness of breath: Plan: -Admit to [facility] -Received dose IM 0.3 mg epi, 1 g magnesium, dexamethasone 10 mg, and two 1 hour-long nebulizer treatments in the ER - Cont solumedrol 40 mg Q8H, xopenex nebs, and will start doxycycline 100 mg BID for anti-inflammatory effects if underlying bronchitis - Previously on Xolair injections ( last was Apr) but Rx denied in May she had not had the number of hospitalizations or symptoms severity for it to be covered by her insurance ---need to restart -Follows with [facility]ur[facility] walker as outpatient, will ask pulmonary consult with [facility] with severe exacerbation here - was due for repeat PFTs -Known allergies to house dust mites-lifestyle modifications discussed including getting a mattress cover, sheets being washed once per week in hot water, removal of carpets, curtains, other washable surfaces that are able to be removed, no pets (at least not in bedroom) - Current home inhaler regimen includes Symbicort 2 puffs BID, Flovent 220 1 puff HS, albuterol prn 2-3 times a day, neb albuterol HS - has not been using Incruse 1 puff daily - will resume (4) GERD (gastroesophageal reflux disease): Plan: - Encourage pepcid and PPI use as she is not using these routinely at home (5) Idiopathic intracranial hypertension: Plan: - Follows with [facility] (6) Migraines: Plan: - hx of such, continue topiramate 100 mg HS DVT ppx: - teds, scds CODE: Full code Dispo: From home, likely to remain in the hospital x 1-2 days History of Present Illness Chief Complaint: Shortness of breath Primary Care Provider: Lynette Jorge, This is a 32-year-old female with PMHx of severe persistent asthma, elevated IgE, chronic allergic rhinitis, heart murmur, uterine fibroids, GERD, vitamin D deficiency, demyelinating disease, idiopathic intracranial hypertension, PTSD. She previously has followed with pulmonology, Dr. Marina. Previously at the beginning of June, pt was on prednisone 60 mg daily and then was tapering off by 10 mg each week, most recently was on 10 mg daily. Yesterday she took 60 mg to start a rescue because her breathing acutely worsened. She was feeling short of breath with minimal ADLs, had wheezing, and dry cough. She feels some mucus moving her chest but feels that she cannot cough it up. Unable to walk more than 10 feet to the bathroom, could not physically case picker her children, and if she was driving her coughing fits were so bad she would have to puller machine. Pt has been using nebulizers nearly [id number] at home in past 24 hours. No supplemental O2 at baseline. Patient does not smoke. Today, she is unable to walk more than 10 feet to the bathroom, could not physically case picker her children, and if she was driving her coughing fits were so bad she would have to puller machine. Last April was her last Xolair injection. While on this medication she had less flares and better symptom management. Patient notes that since not getting the Xolair injections since April her symptoms have progressed and she feels that she cannot get back to baseline. She feels frustrated with the insurance system regarding the denial of prescription for Xolair. Patient is a single mother of 3 children; ages 7, 5 and 3. She called their father who lives nearly 3+ hours away this morning to come get them, so that she could come to the hospital. She reports not having other support system locally. Her family lives is in [place]. In the ER the patient was given 0.3 mg epi, dexamethasone 10 mg, two 1 hour-long nebulizer treatments, 1 g of magnesium and feels slightly improved. Allergies Allergy/AdvReac Type Severity Reaction Status Date / Time nickel Allergy Intermediate skin Verified 05/29/22 08:36 becomes raw/tender Sulfa (Sulfonamide Allergy Intermediate Hives Verified 05/29/22 08:36 Antibiotics) sulfamethoxazole Allergy Intermediate HIVES Verified 05/29/22 08:36 trimethoprim Allergy Intermediate HIVES Verified 05/29/22 08:36 Home Medications Medication Instructions Recorded Confirmed Type albuterol sulfate 90 mcg/actuation 2 puff inhalation Q4H PRN 01/10/19 08/11/22 History aerosol inhaler Cough/Wheeze or SOB lactobacillus combination no.4 3 3,000 mmu cells PO QAM 08/19/19 08/11/22 History billion cell capsule (Probiotic) multivitamin 1 tab PO QAM 08/19/19 08/11/22 History omalizumab 150 mg subcutaneous 150 mg subcut MONTHLY 09/14/20 08/11/22 History solution (Xolair) budesonide-formoterol HFA 160 2 puff inhalation BID 12/26/20 08/11/22 History mcg-4.5 mcg/actuation aerosol inhaler (Symbicort) polyethylene glycol 3350 17 17 g PO QAM 03/24/21 08/11/22 History gram/dose oral powder (Miralax) montelukast 10 mg tablet 10 mg PO QAM 04/17/21 08/11/22 History (Singulair) omeprazole 20 mg capsule,delayed 20 mg PO QAM 04/17/21 08/11/22 History release umeclidinium 62.5 mcg/actuation 1 puff inhalation QAM 04/17/21 08/11/22 History blister powder for inhalation (Incruse Ellipta) loratadine 10 mg tablet (Claritin) 10 mg PO DAILY 04/24/21 08/11/22 History rizatriptan 10 mg disintegrating 10 mg PO .COMPLEX PRN migraine 05/30/22 08/11/22 Rx tablet headache 30 days #9 tabs topiramate 100 mg tablet (Topamax) 100 mg PO HS 08/11/22 08/11/22 History guaifenesin 600 mg tablet, 600 mg PO Q12 #14 tabs 08/15/22 Rx extended release 12 hr (Mucinex) prednisone 10 mg tablet 10 mg PO UD #26 tabs 08/15/22 Rx Past Med/Surg History Medical History Allergic rhinitis Asthma inhalers daily/prn, nebulizer prn Asthma exacerbation recently admitted @ [facility] 03/24/21--currently on tapered prednisone Demyelinating disease GERD (gastroesophageal reflux disease) Idiopathic intracranial hypertension NO MEDS AT CURRENT FOLLOW WITH [facility] [place] Iron deficiency anemia Migraines Severe persistent asthma dependent on systemic steroids with acute exacerbation Vocal cord dysfunction age 16 Surgical History History of bronchoscopy History of section History of dilatation and curettage History of esophagogastroduodenoscopy (EGD) History of Amadou fundoplication Family History Family/Other Family history of diabetes mellitus Father Asthma Grandmother (Paternal) Asthma Brother Cancer Grandfather (Maternal) Hypertension Brother Liver disease Mother Lupus Sister Family history of PCOS Aunt Spina bifida Other No family history of adverse response to anesthesia Social History Smoking Status: Never smoker Second Hand Exposure: No; Hx Alcohol Use: No Hx Substance Use: No Preferred Language: Estonian Communication Ability: Effective Sheet Writer Required: No Beliefs That Will Affect Care: None marital status: Current Living Situation: Family Current Living Situation Comment: Lives with children Feels Safe at Home: Yes Assistive Devices: None Review of Systems Review of Systems: Constitutional: No fever, sweats, + chills Eyes: No diplopia, no worsening or blurred vision ENT: normal hearing, no trouble swallowing Respiratory: As per HPI with dry cough, no sputum, + dyspnea at rest and on exertion today, + wheezing Cardiovascular: No chest pain, tightness or palpitations Abdomen: No pain, nausea, vomiting, diarrhea or constipation Musculoskeletal: No joint pain, calf pain, swelling Neurologic: No weakness, numbness/tingling, or balance problems Psychiatric: No anxiety or depression Skin: No rash or itch Physical Exam Physical Exam: General: female, awake, alert, + coughing fits throughout with nebulizer in place Head: Normocephalic, atraumatic ENT: PERRL, EOMI, no pharyngeal exudate, mucous membranes moist Chest: + Nebulizer on, nearly absent breath sounds posteriorly, wheezing anterior chest, no rales or rhonchi, + dry cough Cardiac: Regular rate and rhythm, no murmur, no JVD, normal peripheral pulses, good capillary refill Abdominal: NABS x 4 quadrants, soft, nondistended, nontender to palpation, no rebound or guarding Extremities: Normal inspection, no peripheral edema or erythema, calfs nontender to palpation Psych: Normal mood and affect Neuro: AAO x 3, strength intact bilaterally and rated 5/5, no motor deficits, speech is clear, no peripheral sensory deficits Results & Data Results & Data ([facility]) Vital Signs (Past 12 Hours) Vital Signs Temp Pulse Pulse Resp BP Pulse Ox O2 Del Method 08/11/22 10:09 84 20 124/81 98 Room Air 08/11/22 09:20 95 H 18 97 Room Air 08/11/22 08:20 Nebulizer 08/11/22 08:17 100 Nebulizer 08/11/22 08:17 Nebulizer 08/11/22 08:17 Nebulizer 08/11/22 07:52 80 18 186/96 H 97 Room Air 08/11/22 07:38 36.4 C L 83 32 H 97 Room Air Laboratory Results 08/11/22 08/11/22 08/11/22 08:40 08:25 07:53 WBC RBC Hgb Hct MCV MCH MCHC RDW Std Deviation RDW Coeff of Camryn Plt Count MPV Immature Gran % (Auto) Neut % (Auto) Lymph % (Auto) [place] % (Auto) Eos % (Auto) Baso % (Auto) Neut # (Auto) Lymph # (Auto) [place] # (Auto) Eos # (Auto) Baso # (Auto) Immature Gran # (Auto) VBG pH 7.31 L VBG pCO2 53 H VBG pO2 38 VBG HCO3 27 VBG O2 Saturation 62.9 VBG Base Excess -0.4 Sodium 139 Potassium 3.6 Chloride 106 Carbon Dioxide 29 Anion Gap 4 BUN 12 Creatinine 0.87 Est Cr Clr Drug Dosing Not Reportable Est GFR ( Amer) 102.9 Est GFR (Non-Af Amer) 88.8 BUN/Creatinine Ratio 13.8 Glucose 99 Calcium 9.0 Adenovirus (PCR) Not Detected B. pertussis DNA (PCR) Not Detected B.parapertussis DNA PCR Not Detected C. pneumoniae DNA (PCR) Not Detected Coronavirus OC43 (PCR) Not Detected Coronavirus HKU1 (PCR) Not Detected Coronavirus 229E (PCR) Not Detected SARS-CoV-2 (PCR) Not Detected Coronavirus NL63 (PCR) Not Detected Human Metapneumovir PCR Not Detected Influenza Type A (PCR) Not Detected Influenza Type B (PCR) Not Detected M. pneumoniae (PCR) Not Detected Parainfluenza 1 (PCR) Not Detected Parainfluenza 2 (PCR) Not Detected Parainfluenza 3 (PCR) Not Detected Parainfluenza 4 (PCR) Not Detected RSV (PCR) Not Detected Entero/Rhino (PCR) Not Detected 08/11/22 07:53 WBC 8.39 RBC 4.70 Hgb 12.8 Hct 39.2 MCV 83.4 MCH 27.2 MCHC 32.7 RDW Std Deviation 47.4 H RDW Coeff of Camryn 15.5 H Plt Count 329 MPV 10.0 Immature Gran % (Auto) 0.2 Neut % (Auto) 52.5 Lymph % (Auto) 35.4 [place] % (Auto) 7.0 Eos % (Auto) 3.9 Baso % (Auto) 1.0 Neut # (Auto) 4.40 Lymph # (Auto) 2.97 [place] # (Auto) 0.59 Eos # (Auto) 0.33 Baso # (Auto) 0.08 Immature Gran # (Auto) 0.02 VBG pH VBG pCO2 VBG pO2 VBG HCO3 VBG O2 Saturation VBG Base Excess Sodium Potassium Chloride Carbon Dioxide Anion Gap BUN Creatinine Est Cr Clr Drug Dosing Est GFR ( Amer) Est GFR (Non-Af Amer) BUN/Creatinine Ratio Glucose Calcium Adenovirus (PCR) B. pertussis DNA (PCR) B.parapertussis DNA PCR C. pneumoniae DNA (PCR) Coronavirus OC43 (PCR) Coronavirus HKU1 (PCR) Coronavirus 229E (PCR) SARS-CoV-2 (PCR) Coronavirus NL63 (PCR) Human Metapneumovir PCR Influenza Type A (PCR) Influenza Type B (PCR) M. pneumoniae (PCR) Parainfluenza 1 (PCR) Parainfluenza 2 (PCR) Parainfluenza 3 (PCR) Parainfluenza 4 (PCR) RSV (PCR) Entero/Rhino (PCR) Diagnostic Findings Chest X-Ray 08/11/22 07:51 XR chest 1V portable HISTORY: 32 years-old Female dyspnea acute shortness of breath COMPARISON: Chest radiograph 03/24/2021 TECHNIQUE: AP view of the chest FINDINGS: Cardiomediastinal and hilar silhouettes are within normal limits. No pneumothorax, pleural effusion, airspace consolidation or overt pulmonary edema. Bones of the chest appear grossly intact. IMPRESSION: No acute process. ACT 112: Negative or not required by law. The above report was generated using voice recognition software. It may contain grammatical, syntax or spelling errors. Electronically signed by: Suraj Cornejo M.D. 08/11/2022 8:45 AM Code Status & VTE Plan Code Status Full code -discussed with the patient at bedside Supervising Physician Co-Signing Physician Notes delayed entry date of service noted above Attending Addendum: care coordinated with LORAINE Hancock please refer to her notes for full details, I agree with her notes patient seen and examined, records reviewed by myself as well on exam, patient seen resting in bed, sitting up on room air, not in distress, speaks in sentences with no effort no other symptoms VS noted and reviewed oriented x3, not in distress, speaks in sentences with no effort nor accessory muscle use normal rate, regular rhythm, no murmurs (+) mild wheeze BL, no crackles non distended, soft, nontender no bipedal edema, erythema, warmth no neuro deficits ASSESSMENT AND PLAN diagnoses and plan of care as per LORAINE Hancock's notes Matias Garcia MD
[2022-08-11] MEDS ORDERED: ACETAMINOPHEN 325 MG TAB PO PRN (12:20)
[2022-08-11] MEDS ORDERED: ONDANSETRON INJ 2 MG/ML 2 ML VIAL IV PRN (12:20)
[2022-08-11] MEDS ORDERED: POLYETHYLENE (MIRALAX) 17 GM PACK PO PRN (12:20)
--- NOTE | 2022-08-11 12:35 | Pulmonary Consultation ---
Date of Consultation August 11, 2022 Assessment & Plan (1) Asthma exacerbation: Asthma persistence: persistent Asthma severity: severe Qualified Code(s): J45.51 - Severe persistent asthma with (acute) exacerbation (2) Shortness of breath: (3) Allergic rhinitis: Plan Chest x-ray 08/11/2022 personally reviewed: Portable film, bilateral costophrenic and cardiophrenic angles are clean, no clear lung infiltrate appreciated --Acute exacerbation of severe persistent asthma On Symbicort 160-4.5 MCG 2 puffs twice daily along with Incruse (patient was not using Incruse on a daily basis) [facility] Respiratory bio fire negative COVID-19 PCR, influenza A/B, RSV all negative After eosinophil count 330, has been as high as 770 on 03/24/2021 IgE 03/26/2021 of 514 KU/L. ANCA screen negative 03/26/2021. MANISH screen and autoimmune lab testing negative on 02/25/2017. Plan: Continue with Solu-Medrol, inhaled bronchodilators No clear signs of pulmonary infection on the chest x-ray I am going to discontinue Breo and give the patient Brovana instead. Patient is already getting Solu-Medrol. No need for ICS right now. Continue with Incruse Mucinex will be added as the patient is complaining of chest congestion. Case management to be involved as patient was unable to get Xolair injections. Please note the above document was generated using voice recognition software. It may contain grammatical, syntax or spelling errors.Any formal questions or concerns about the content, text or information contained within the body of this dictation should be directly addressed to the provider for clarification. History of Present Illness Attending Physician: Matias Garcia MD History of Present Illness 32-year-old female presents to the hospital with complaints of shortness of breath Past medical history: Asthma, GERD, migraine, chronic allergic rhinitis demyelinating disease, PTSD Follows up with Dr. Marina at [facility]. Was admitted last in the hospital March 2021 Previous records personally reviewed Has been intubated twice in the past. Last intubation was more than 10 years ago At the time of examination patient was saturating 98% on room air. Her heart rate was in the 110. She was coughing actively. She stated she felt better after she came to the hospital and getting steroids. She has not received her Xolair as the insurance was not covering it since April. Denied any headache. No dysuria, no diarrhea. No nausea or vomiting. Has been afebrile. No significant change in perfume or environmental surrounding at home. Social history: Lifetime non-smoker. Has cats at home. No birds or poultry nearby. Allergies Allergy/AdvReac Type Severity Reaction Status Date / Time nickel Allergy Intermediate skin Verified 05/29/22 08:36 becomes raw/tender Sulfa (Sulfonamide Allergy Intermediate Hives Verified 05/29/22 08:36 Antibiotics) sulfamethoxazole Allergy Intermediate HIVES Verified 05/29/22 08:36 trimethoprim Allergy Intermediate HIVES Verified 05/29/22 08:36 Home Medications Medication Instructions Recorded Confirmed Type albuterol sulfate 90 mcg/actuation 2 puff inhalation Q4H PRN 01/10/19 08/11/22 History aerosol inhaler Cough/Wheeze or SOB lactobacillus combination no.4 3 3,000 mmu cells PO QAM 08/19/19 08/11/22 History billion cell capsule (Probiotic) multivitamin 1 tab PO QAM 08/19/19 08/11/22 History omalizumab 150 mg subcutaneous 150 mg subcut MONTHLY 09/14/20 08/11/22 History solution (Xolair) budesonide-formoterol HFA 160 2 puff inhalation BID 12/26/20 08/11/22 History mcg-4.5 mcg/actuation aerosol inhaler (Symbicort) polyethylene glycol 3350 17 17 g PO QAM 03/24/21 08/11/22 History gram/dose oral powder (Miralax) montelukast 10 mg tablet 10 mg PO QAM 04/17/21 08/11/22 History (Singulair) omeprazole 20 mg capsule,delayed 20 mg PO QAM 04/17/21 08/11/22 History release umeclidinium 62.5 mcg/actuation 1 puff inhalation QAM 04/17/21 08/11/22 History blister powder for inhalation (Incruse Ellipta) loratadine 10 mg tablet (Claritin) 10 mg PO DAILY 04/24/21 08/11/22 History rizatriptan 10 mg disintegrating 10 mg PO .COMPLEX PRN migraine 05/30/22 08/11/22 Rx tablet headache 30 days #9 tabs topiramate 100 mg tablet (Topamax) 100 mg PO HS 08/11/22 08/11/22 History Patient History Medical History Allergic rhinitis Asthma inhalers daily/prn, nebulizer prn Asthma exacerbation recently admitted @ [facility] 03/24/21--currently on tapered prednisone Demyelinating disease GERD (gastroesophageal reflux disease) Idiopathic intracranial hypertension NO MEDS AT CURRENT FOLLOW WITH [facility] Iron deficiency anemia Migraines Severe persistent asthma dependent on systemic steroids with acute exacerbation Vocal cord dysfunction age 16 Surgical History History of bronchoscopy History of section History of dilatation and curettage History of esophagogastroduodenoscopy (EGD) History of Amadou fundoplication Family History Family/Other Family history of diabetes mellitus Father Asthma Grandmother (Paternal) Asthma Brother Cancer Grandfather (Maternal) Hypertension Brother Liver disease Mother Lupus Sister Family history of PCOS Aunt Spina bifida Other No family history of adverse response to anesthesia Social History Smoking Status: Never smoker Second Hand Exposure: No; Hx Alcohol Use: No Hx Substance Use: No Preferred Language: Faroese Communication Ability: Effective Faucet Polisher Required: No Beliefs That Will Affect Care: Spiritual marital status: Current Living Situation: Family Current Living Situation Comment: Lives with children Feels Safe at Home: Yes Safety Concerns: Feels Safe At This Time Assistive Devices: Contacts, Glasses and Nebulizer Review of Systems Review of Systems: All systems reviewed & are unremarkable except as noted in HPI & below Physical Exam Physical Exam: Constitutional: No acute distress HEENT: EOMI, PERRLA Respiratory system: Decreased air entry bilaterally, no rhonchi, no crackles, positive expiratory wheeze bilaterally CVS: S1-S2 positive, no murmurs or gallops, tachycardia Abdomen: Soft, nontender, nondistended, positive bowel sounds x4 Extremities: +2 pulses bilaterally radialis/ dorsalis pedis, no cyanosis, no edema Neuro: Awake alert oriented x3 Psych: Normal mood and affect G/U: No Walters Skin: no rashes, warm and dry Lymphatic: no cervical or axillary lymphadenopathy Results & Data Results & Data ([facility]) Vital Signs (Past 12 Hours) Vital Signs Temp Pulse Pulse Resp BP Pulse Ox O2 Del Method 08/11/22 12:27 103 H 18 112/78 98 Room Air 08/11/22 10:09 84 20 124/81 98 Room Air 08/11/22 09:20 95 H 18 97 Room Air 08/11/22 08:20 Nebulizer 08/11/22 08:17 100 Nebulizer 08/11/22 08:17 Nebulizer 08/11/22 08:17 Nebulizer 08/11/22 07:52 80 18 186/96 H 97 Room Air 08/11/22 07:38 36.4 C L 83 32 H 97 Room Air Laboratory Results 08/11/22 07:53 08/11/22 07:53 PG Care Time/CCT Total # of Minutes Spent Total Time Spent with Patient: Total time spent is greater than 50% in coordination of care (as documented) at patient's floor/unit and/or counseling patient: Coding Level of Care Code 40738 Inpt Consult Level 5 Diagnoses Asthma exacerbation J45.51 Asthma persistence: persistent Asthma severity: severe Shortness of breath R06.02 Allergic rhinitis J30.9
[2022-08-11] MEDS ORDERED: XOPENEX/ATROVENT 1.25mg/0.5MG NEB COMBO NEB SCH (13:00)
[2022-08-11] MEDS ORDERED: LEVALBUTEROL 1.25MG/0.5ML NEB INH SCH (13:00)
[2022-08-11] MEDS ORDERED: IPRATROPIUM BROMIDE NEB SOLN 0.02% 2.5 ML VIAL INH SCH (13:00)
[2022-08-11] MEDS: DOXYCYCLINE HYCLATE 100 MG CAP PO SCH ×2 (13:17→18:41)
[2022-08-11] MEDS: methylPREDNISolone 40 MG in SYRINGE 0 ML IV SCH ×2 (13:18→21:32)
[2022-08-11] MEDS: LEVALBUTEROL HCL 0.63 MG/3 ML NEB NEB SCH ×3 (15:49→23:53)
[2022-08-11] MEDS: FORMOTEROL 20 MCG/2 ML VIAL INH SCH (19:17)
[2022-08-11] MEDS: guaiFENesin 600 MG TABCR PO SCH (20:35)
[2022-08-11] MEDS: TOPIRAMATE 100 MG TAB PO SCH (20:36)
[2022-08-12] MEDS: LEVALBUTEROL HCL 0.63 MG/3 ML NEB NEB SCH ×5 (02:24→18:08)
[2022-08-12] MEDS: methylPREDNISolone 40 MG in SYRINGE 0 ML IV SCH ×2 (07:12→19:58)
[2022-08-12] MEDS: DOXYCYCLINE HYCLATE 100 MG CAP PO SCH ×2 (07:12→19:58)
[2022-08-12] MEDS: FORMOTEROL 20 MCG/2 ML VIAL INH SCH ×2 (07:16→19:47)
[2022-08-12] MEDS ORDERED: FLUTICASONE/VILANTEROL 200/25MCG 14 PUFFS/INHALER INH SCH (09:00)
[2022-08-12] MEDS: PANTOprazole 40 MG TAB PO SCH (09:36)
[2022-08-12] MEDS: ADVANCED PROBIOTIC 1250 MG CAPSULE PO SCH (09:36)
[2022-08-12] MEDS: LORATADINE 10 MG TAB PO SCH (09:36)
[2022-08-12] MEDS: MONTELUKAST SODIUM 10 MG TABLET PO SCH (09:37)
[2022-08-12] MEDS: MULTIVITAMIN TAB PO SCH (09:37)
[2022-08-12] MEDS: guaiFENesin 600 MG TABCR PO SCH ×2 (09:37→19:58)
[2022-08-12] MEDS: UMECLIDINIUM BROMIDE 62.5MCG/BLISTER 7 PUFFS/INHALER INH SCH (09:39)
[2022-08-12 10:00] LABS: Hematocrit (blood only) 37.8 % (34.1-44.9); Hemoglobin 12.2 g/dl (12.0-16.0); Mean Corpuscular Hemoglobin 26.6 pg (25.0-34.0); Mean Corpuscular Hgb Conc 32.3 g/dL (32.0-36.0); Mean Corpuscular Volume 82.5 fL (80.0-100.0); Mean Platelet Volume 10.2 fL (9.4-12.3); Platelet Count 355 K/uL (130-400); RDW Coefficient of Variation 15.7 % (11.5-14.5); RDW Standard Deviation 47.3 fL (36.4-46.3); Red Blood Count 4.58 M/uL (3.93-5.22)
[2022-08-12 11:00] LABS: Anion Gap 8 (3-11); BUN Creatinine Ratio 15.1 (10-20); Blood Urea Nitrogen 13 mg/dl (6-23); Calcium 9.8 mg/dl (8.5-10.1); Carbon Dioxide 22 mmol/L (21-32); Chloride 108 mmol/L (98-107); Est GFR (African American) 104.3 ml/min; Glucose 135 mg/dl (70-99(Fasting)); Potassium 3.8 mmol/L (3.5-5.1); Sodium 138 mmol/L (136-145)
--- NOTE | 2022-08-12 12:41 | Pulmonology Progress Note ---
Date of Service August 12, 2022 Assessment & Plan (1) Asthma exacerbation: Asthma persistence: persistent Asthma severity: severe Qualified Code(s): J45.51 - Severe persistent asthma with (acute) exacerbation (2) Shortness of breath: (3) Allergic rhinitis: Plan Chest x-ray 08/11/2022 personally reviewed: Portable film, bilateral costophrenic and cardiophrenic angles are clean, no clear lung infiltrate appreciated --Acute exacerbation of severe persistent asthma On Symbicort 160-4.5 MCG 2 puffs twice daily along with Incruse (patient was not using Incruse on a daily basis) On [employer] Respiratory bio fire negative COVID-19 PCR, influenza A/B, RSV all negative After eosinophil count 330, has been as high as 770 on 03/24/2021 IgE 03/26/2021 of 514 KU/L. ANCA screen negative 03/26/2021. MANISH screen and autoimmune lab testing negative on 02/25/2017. Plan: Decrease Solu-Medrol to 40 mg every 12 Continue with Brovana and inhaled bronchodilators Continue with Mucinex and flutter valve Please note the above document was generated using voice recognition software. It may contain grammatical, syntax or spelling errors.Any formal questions or concerns about the content, text or information contained within the body of this dictation should be directly addressed to the provider for clarification. Admission and Anticipated Discharge Date Admission Date: August 11, 2022 Subjective Patient seen and examined at bedside. No acute distress, no adverse events overnight Patient was sleeping calmly just prior to coming to the room She says she is feeling better compared to yesterday Denies any chest pain Coughing up bringing up little bit of phlegm. Still complains of chest stef estion Denies any nausea vomiting Fair appetite Was saturating 97% on room air with heart rate in the 80s Review of Systems Review of Systems: All systems reviewed & are unremarkable except as noted in Subjective Physical Exam Physical Exam: Constitutional: No acute distress HEENT: EOMI, PERRLA Respiratory system: Decreased air entry bilaterally, no rhonchi, no crackles, positive expiratory wheeze bilaterally (improved from before) CVS: S1-S2 positive, no murmurs or gallop Abdomen: Soft, nontender, nondistended, positive bowel sounds x4 Extremities: +2 pulses bilaterally radialis/ dorsalis pedis, no cyanosis, no edema Neuro: Awake alert oriented x3 Psych: Normal mood and affect G/U: No Watlers Skin: no rashes, warm and dry Lymphatic: no cervical or axillary lymphadenopathy Results & Data Results & Data ([facility]) Vital Signs (Past 12 Hours) Vital Signs Temp Pulse Resp BP Pulse Ox O2 Del Method 08/12/22 08:47 90 18 98 Room Air 08/12/22 07:21 36.8 C 71 18 107/71 99 Room Air 08/12/22 07:16 77 18 98 Room Air 08/12/22 03:45 Room Air 08/12/22 02:24 95 H 18 98 Room Air 08/12/22 02:30 Room Air Laboratory Results 08/12/22 09:00 08/12/22 09:00 PG Care Time/CCT Total # of Minutes Spent Total Time Spent with Patient: Total time spent is greater than 50% in coordination of care (as documented) at patient's floor/unit and/or counseling patient: Coding Level of Care Code 69648 Subseq Hosp Care Lvl 2 Diagnoses Asthma exacerbation J45.51 Asthma persistence: persistent Asthma severity: severe Shortness of breath R06.02 Allergic rhinitis J30.9
--- NOTE | 2022-08-12 12:57 | Hospitalist Progress Note ---
Date of Service August 12, 2022 Assessment & Plan (1) Severe persistent asthma dependent on systemic steroids with acute ex acerbation: (2) Allergic rhinitis: (3) Shortness of breath: Plan: - Previously on Xolair injections ( last was Apr) but Rx denied in May bc she had not had the number of hospitalizations or symptoms severity for it to be covered by her insurance ---need to restart -Follows with Anur[facility] walker as outpatient CXR: no acute process - gradually improving, remains on room air still has wheezing though - Pulmonology SVC on board Solumedrol decreased to 40mg IV q12h continue Doxycycline 100mg BID Day 2 continue Xopenex nebs q6h continue Perforomist, Pulmicort nebs -usual Singulair, Incruse Ellipta (4) GERD (gastroesophageal reflux disease): Plan: - Encourage pepcid and PPI use as she is not using these routinely at home (5) Idiopathic intracranial hypertension: Plan: - Follows with [place] [facility] (6) Migraines: Plan: - hx of such, continue topiramate 100 mg HS DVT ppx: - teds, scds CODE: Full code Dispo:anticipate d/c home when medically stable Admission and Anticipated Discharge Date Admission Date: August 11, 2022 Subjective ff up for asthma exacerbation, etc seen resting in bed, not in distress, comfortable, very pleasant states she had some coughing spells last night, was not able to have a restful sleep feels improved this morning breathing is improving, but still far from baseline has occasional productive cough- green, thick phlegm no chest pain, palpitations, dizziness no fever/chills no other symptoms Review of Systems Review of Systems: all noted and negative except for above Physical Exam Physical Exam: General- oriented x 3, not in distress, speaks in sentences with no effort or accessory muscle use Eyes- anicteric Neck- no JVD Lungs- (+) moderate wheeze bilaterally no crackles good air entry Heart- normal rate, regular rhythm; no murmurs Abdomen- normal bowel sounds, nondistended, soft, no tenderness Extremities- no pretibial edema, no calf tenderness Neuro- alert, oriented x 3; no gross focal neurologic deficits Skin- warm & dry Results & Data Results & Data ([facility]) Vital Signs (Past 12 Hours) Vital Signs Temp Pulse Resp BP Pulse Ox O2 Del Method 08/12/22 08:47 90 18 98 Room Air 08/12/22 07:21 36.8 C 71 18 107/71 99 Room Air 08/12/22 07:16 77 18 98 Room Air 08/12/22 03:45 Room Air 08/12/22 02:24 95 H 18 98 Room Air 08/12/22 02:30 Room Air all noted and reviewed including below
[2022-08-12] MEDS ORDERED: BENZONATATE 100 MG CAPSULE PO PRN (14:24)
[2022-08-12] MEDS: BUDESONIDE 0.5 MG/2 ML VIAL (PULMICORT) NEB SCH (19:46)
[2022-08-12] MEDS: TOPIRAMATE 100 MG TAB PO SCH (19:58)
[2022-08-13] MEDS: LEVALBUTEROL HCL 0.63 MG/3 ML NEB NEB SCH ×5 (00:28→19:55)
[2022-08-13] MEDS: FORMOTEROL 20 MCG/2 ML VIAL INH SCH ×2 (07:00→19:55)
[2022-08-13] MEDS: BUDESONIDE 0.5 MG/2 ML VIAL (PULMICORT) NEB SCH ×2 (07:00→19:55)
[2022-08-13] MEDS: DOXYCYCLINE HYCLATE 100 MG CAP PO SCH ×2 (08:42→18:41)
[2022-08-13] MEDS: MULTIVITAMIN TAB PO SCH (08:43)
[2022-08-13] MEDS: UMECLIDINIUM BROMIDE 62.5MCG/BLISTER 7 PUFFS/INHALER INH SCH (08:43)
[2022-08-13] MEDS: PANTOprazole 40 MG TAB PO SCH (08:43)
[2022-08-13] MEDS: guaiFENesin 600 MG TABCR PO SCH ×2 (08:43→20:27)
[2022-08-13] MEDS: MONTELUKAST SODIUM 10 MG TABLET PO SCH (08:44)
[2022-08-13] MEDS: ADVANCED PROBIOTIC 1250 MG CAPSULE PO SCH (08:44)
[2022-08-13] MEDS: LORATADINE 10 MG TAB PO SCH (09:22)
[2022-08-13] MEDS: methylPREDNISolone 40 MG in SYRINGE 0 ML IV SCH ×2 (09:22→20:26)
--- NOTE | 2022-08-13 09:59 | Pulmonology Progress Note ---
Date of Service August 13, 2022 Assessment & Plan (1) Asthma exacerbation: Asthma persistence: persistent Asthma severity: severe Qualified Code(s): J45.51 - Severe persistent asthma with (acute) exacerbation (2) Shortness of breath: (3) Allergic rhinitis: Plan Chest x-ray 08/11/2022 personally reviewed: Portable film, bilateral costophrenic and cardiophrenic angles are clean, no clear lung infiltrate appreciated --Acute exacerbation of severe persistent asthma On Symbicort 160-4.5 MCG 2 puffs twice daily along with Incruse (patient was not using Incruse on a daily basis) On [employer] Respiratory bio fire negative COVID-19 PCR, influenza A/B, RSV all negative After eosinophil count 330, has been as high as 770 on 03/24/2021 IgE 03/26/2021 of 514 KU/L. ANCA screen negative 03/26/2021. MANISH screen and autoimmune lab testing negative on 02/25/2017. Plan: Starting tomorrow go down on Solu-Medrol to 40 mg on a daily basis Can consider transitioning to p.o. prednisone as of Thursday Continue with Brovana and inhaled bronchodilators Continue with Mucinex and flutter valve Please note the above document was generated using voice recognition software. It may contain grammatical, syntax or spelling errors.Any formal questions or concerns about the content, text or information contained within the body of this dictation should be directly addressed to the provider for clarification. Admission and Anticipated Discharge Date Admission Date: August 11, 2022 Subjective Patient seen and examined at bedside. No acute distress. No adverse events overnight She says she is feeling better compared to yesterday Saturating well on room air. Good appetite. Has been being able to bring up phlegm with the help of flutter valve. Denies any chest pain Fair appetite, no nausea or vomiting Review of Systems Review of Systems: All systems reviewed & are unremarkable except as noted in Subjective Physical Exam Physical Exam: Constitutional: No acute distress HEENT: EOMI, PERRLA Respiratory system: Good air entry bilaterally, no rhonchi, no crackles, mild expiratory wheeze bilaterally (improved from before) CVS: S1-S2 positive, no murmurs or gallop Abdomen: Soft, nontender, nondistended, positive bowel sounds x4 Extremities: +2 pulses bilaterally radialis/ dorsalis pedis, no cyanosis, no lynn ma Neuro: Awake alert oriented x3 Psych: Normal mood and affect G/U: No Walters Skin: no rashes, warm and dry Lymphatic: no cervical or axillary lymphadenopathy Results & Data Results & Data ([facility]) Vital Signs (Past 12 Hours) Vital Signs Temp Pulse Resp BP Pulse Ox O2 Del Method 08/13/22 07:45 36.6 C 65 18 108/71 97 Room Air 08/13/22 07:00 79 16 97 Room Air 08/13/22 00:28 86 20 97 Room Air Laboratory Results 08/12/22 09:00 08/12/22 09:00 PG Care Time/CCT Total # of Minutes Spent Total Time Spent with Patient: Total time spent is greater than 50% in coordination of care (as documented) at patient's floor/unit and/or counseling patient: Coding Level of Care Code 09179 SUB INP/OBS CARE 2/35MIN Diagnoses Asthma exacerbation J45.51 Asthma persistence: persistent Asthma severity: severe Shortness of breath R06.02 Allergic rhinitis J30.9
--- NOTE | 2022-08-13 13:41 | Hospitalist Progress Note ---
Date of Service August 13, 2022 Assessment & Plan (1) Severe persistent asthma dependent on systemic steroids with acute ex acerbation: (2) Allergic rhinitis: (3) Shortness of breath: Plan: - Previously on Xolair injections ( last was Apr) but Rx denied in May bc she had not had the number of hospitalizations or symptoms severity for it to be covered by her insurance ---need to restart -CXR: no acute process -Appreciate Pulmonology input, Solumedrol 40mg IV BID currently continue Doxycycline 100mg BID Day 2 continue Xopenex nebs q6h continue Perforomist, Pulmicort nebs -usual Singulair, Incruse Ellipta (4) GERD (gastroesophageal reflux disease): Plan: - Encourage pepcid and PPI use as she is not using these routinely at home (5) Idiopathic intracranial hypertension: Plan: - Follows with [place] [facility]ology (6) Migraines: Plan: - hx of such, continue topiramate 100 mg HS DVT ppx: - teds, scds. Start SQ lovenox CODE: Full code Dispo:anticipate d/c home when medically stable Admission and Anticipated Discharge Date Admission Date: August 11, 2022 Subjective Still with wheezing, breathing mildly improved Physical Exam Physical Exam: Non toxic, no acute distress, pleasant Respiratory: Diffuse expiratory wheezing, airflow is fair, no rhonchi or rales Cardiovascular: Regular rate and rhythm, no murmurs/rubs/gallops Gastrointestinal (Abdomen): soft, non tender Musculoskeletal: No edema Results & Data Results & Data ([facility]) Vital Signs (Past 12 Hours) Vital Signs Temp Pulse Resp BP Pulse Ox O2 Del Method 08/13/22 12:39 77 16 93 Room Air 08/13/22 07:50 Room Air 08/13/22 07:45 36.6 C 65 18 108/71 97 Room Air 08/13/22 07:00 79 16 97 Room Air
[2022-08-13] MEDS: TOPIRAMATE 100 MG TAB PO SCH (20:26)
[2022-08-14] MEDS: LEVALBUTEROL HCL 0.63 MG/3 ML NEB NEB SCH ×4 (00:41→19:14)
[2022-08-14] MEDS: FORMOTEROL 20 MCG/2 ML VIAL INH SCH ×2 (07:59→19:49)
[2022-08-14] MEDS: BUDESONIDE 0.5 MG/2 ML VIAL (PULMICORT) NEB SCH ×2 (08:03→19:14)
[2022-08-14 08:54] LABS: Creatinine Clr Calc Pharmacy 84.5 ml/min; Est GFR (African American) 91.3 ml/min; Est GFR (Non-African American) 78.8 ml/min
[2022-08-14] MEDS: guaiFENesin 600 MG TABCR PO SCH ×2 (09:04→20:56)
[2022-08-14] MEDS: ADVANCED PROBIOTIC 1250 MG CAPSULE PO SCH (09:04)
[2022-08-14] MEDS: DOXYCYCLINE HYCLATE 100 MG CAP PO SCH ×2 (09:04→18:18)
[2022-08-14] MEDS: MULTIVITAMIN TAB PO SCH (09:05)
[2022-08-14] MEDS: MONTELUKAST SODIUM 10 MG TABLET PO SCH (09:05)
[2022-08-14] MEDS: ENOXAPARIN INJ 40 MG/0.4 ML SYR SQ SCH (09:06)
[2022-08-14] MEDS: UMECLIDINIUM BROMIDE 62.5MCG/BLISTER 7 PUFFS/INHALER INH SCH (09:06)
[2022-08-14] MEDS: PANTOprazole 40 MG TAB PO SCH (09:06)
[2022-08-14] MEDS: methylPREDNISolone 40 MG in SYRINGE 0 ML IV SCH (09:08)
[2022-08-14] MEDS: LORATADINE 10 MG TAB PO SCH (09:29)
--- NOTE | 2022-08-14 12:04 | Pulmonology Progress Note ---
Date of Service August 14, 2022 Assessment & Plan (1) Asthma exacerbation: Asthma persistence: persistent Asthma severity: severe Qualified Code(s): J45.51 - Severe persistent asthma with (acute) exacerbation (2) Shortness of breath: (3) Allergic rhinitis: Plan Chest x-ray 08/11/2022 personally reviewed: Portable film, bilateral costophrenic and cardiophrenic angles are clean, no clear lung infiltrate appreciated --Acute exacerbation of severe persistent asthma On Symbicort 160-4.5 MCG 2 puffs twice daily along with Incruse (patient was not using Incruse on a daily basis) On [employer] Respiratory bio fire negative COVID-19 PCR, influenza A/B, RSV all negative After eosinophil count 330, has been as high as 770 on 03/24/2021 IgE 03/26/2021 of 514 KU/L. ANCA screen negative 03/26/2021. MANISH screen and autoimmune lab testing negative on 02/25/2017. Plan: Will start Prednisone taper tomorrow. Will start with 40 mg PO Daily x 3 days and taper down every three days by 10 mg until completed and she starts her Xolair. Continue with Brovana and inhaled bronchodilators Continue with Mucinex and flutter valve Please note the above document was generated using voice recognition software. It may contain grammatical, syntax or spelling errors.Any formal questions or concerns about the content, text or information contained within the body of this dictation should be directly addressed to the provider for clarification. Admission and Anticipated Discharge Date Admission Date: August 11, 2022 Supervising Physician Co-Signing Physician Notes I saw and evaluated the patient with Hnery Bradford, and agree with findings and plan as documented in the note. Patient seen and examined at bedside. No acute distress, no adverse events overnight. Patient says she is more much better compared to when she came to the hospital Bringing up clear phlegm. Denies any chest pain, no chest tightness No headache, no blurry vision. Constitutional: No acute distress HEENT: EOMI, PERRLA Respiratory system: Goodair entry bilaterally, no rhonchi, no crackles, minimal expiratory wheeze bilaterally CVS: S1-S2 positive, no murmurs or gallop Abdomen: Soft, nontender, nondistended, positive bowel sounds x4 Extremities: +2 pulses bilaterally radialis/ dorsalis pedis, no cyanosis, no edema Neuro: Awake alert oriented x3 Psych: Normal mood and affect Plan: I will go down on Solu-Medrol to 40 mg on a daily basis. Starting tomorrow continue tapering of Solu-Medrol. Patient is supposed to get her Xolair on the of this month. Continue with Mucinex and flutter valve Please note the above document was generated using voice recognition software. It may contain grammatical, syntax or spelling errors.Any formal questions or concerns about the content, text or information contained within the body of this dictation should be directly addressed to the provider for clarification. Subjective Patient was seen and evaluated bedside today. She reports improvement in her breathing. She describes a persistent cough, however she is not bringing up much sputum. She did reach out to her pulmonary office at [facility] and she is scheduled to receive her Xolair on 08/20. She has not slept well secondary to coughing, but otherwise feels better Review of Systems Review of Systems: A complete 6 point review of systems was reviewed with the patient with pertinent positives and negatives as per history of present illness. All else were negative. Physical Exam Physical Exam: VITAL SIGNS - Vital signs and nursing notes were reviewed. GENERAL - 32-year-old female appearing her stated age who is in no acute distress. Communicates well with provider and answers questions appropriately. MOUTH/OROPHARYNX - Without perioral cyanosis. Buccal mucosa pink and moist. NECK - Neck with FROM. LUNGS - Chest wall symmetric without accessory muscle use, intercostals retractions, or central cyanosis. Diffuse inspiratory wheezes noted throughout all lung sagastume. CARDIAC - RRR with S1/S2. No murmur, rubs, or gallops appreciated. ABDOMEN - Abdominal contour flat without pulsations or visible masses. BS normoactive all four quadrants. No tenderness, palpable masses, hepatosplenomegaly, or ascites noted. EXTREMITIES - No clubbing or peripheral cyanosis. No pretibial edema present. +3/5 radial and dorsalis pedis pulses palpated throughout. +5/5 strength noted in UE/LE bilaterally. PSYCH - A&Ox3 and cooperates fully with examiner. Pt is very pleasant and interacts well with examiner. Skin: no rashes, warm and dry Lymphatic: no cervical or axillary lymphadenopathy Results & Data Results & Data ([facility]) Vital Signs (Past 12 Hours) Vital Signs Temp Pulse Resp BP Pulse Ox O2 Del Method 08/14/22 08:00 Room Air 08/14/22 08:03 86 15 98 Room Air 08/14/22 07:47 36.9 C 66 16 115/70 97 Room Air 08/14/22 06:10 96 Room Air 08/14/22 00:41 80 18 95 Room Air PG Care Time/CCT Total # of Minutes Spent Total Time Spent with Patient: Total time spent is greater than 50% in coordination of care (as documented) at patient's floor/unit and/or counseling patient: Coding Level of Care Code 59196 SUB INP/OBS CARE 2/35MIN Diagnoses Asthma exacerbation J45.51 Asthma persistence: persistent Asthma severity: severe Shortness of breath R06.02 Allergic rhinitis J30.9
--- NOTE | 2022-08-14 17:14 | Hospitalist Progress Note ---
Date of Service August 14, 2022 Assessment & Plan (1) Severe persistent asthma dependent on systemic steroids with acute ex acerbation: (2) Allergic rhinitis: (3) Shortness of breath: Plan: - Previously on Xolair injections ( last was Apr) but Rx denied in May bc she had not had the number of hospitalizations or symptoms severity for it to be covered by her insurance --- plans to restart on 08/20 at [facility] -CXR: no acute process -Appreciate Pulmonology input, Solumedrol 40mg IV BID currently -We will transition to prednisone taper tomorrow, per pulm. Started 40 mg daily x3 days and then taper down every 3 days x 10 mg until completed and starts Xolair Continue with Brovana and inhaled bronchodilators Continue with Mucinex and flutter valve On Doxycycline 100mg BID Day 3 (4) GERD (gastroesophageal reflux disease): Plan: - Encourage pepcid and PPI use as she is not using these routinely at home (5) Idiopathic intracranial hypertension: Plan: - Follows with [place] [facility]ology (6) Migraines: Plan: - hx of such, continue topiramate 100 mg HS DVT ppx: - teds, scds. Start SQ lovenox CODE: Full code Dispo:anticipate d/c home when medically stable Admission and Anticipated Discharge Date Admission Date: August 11, 2022 Supervising Physician Co-Signing Physician Notes Patient was seen and examined independently. chart reviewed. case discussed with KEVIN. I agree with assessment and plan as outlined above Subjective Seen and examined in 377 bed 1. Reports that her breathing has improved since yesterday but still with persistent cough, which is worse at night. Denies much sputum production. Otherwise no new symptoms. No fever, chills, lightheadedness, chest pain, nausea, vomiting, abdominal pain, dysuria, diarrhea or constipation. Did reach out to pulmonary office at [facility] and scheduled to receive her Xolair on August 20. Review of Systems Review of Systems: At least ten systems reviewed and negative except as noted in the HPI. Physical Exam Physical Exam: Gen: WD/WN, NAD, sitting in bed, A&Ox3 HEENT: Normocephalic, atraumatic, conjunctivae moist, sclerae anicteric, mucous membranes moist Lung: Clear to Auscultation bilaterally with improved air movement, expiratory wheezes but no rhonchi or rales Heart: Regular rate, regular rhythm, no murmurs, rubs, or gallops Abdomen: Soft, NT, ND +BS x 4 Extremities: no edema Skin: Warm, no rash Results & Data Results & Data ([facility]) Vital Signs (Past 12 Hours) Vital Signs Temp Pulse Resp BP Pulse Ox O2 Del Method 08/14/22 15:53 36.8 C 65 16 108/67 96 Room Air 08/14/22 13:05 86 16 95 Room Air 08/14/22 08:00 Room Air 08/14/22 08:03 86 15 98 Room Air 08/14/22 07:47 36.9 C 66 16 115/70 97 Room Air 08/14/22 06:10 96 Room Air Laboratory Results BMP 08/14/22 08:16 Creatinine 0.96 Diagnostic Findings Chest X-Ray 08/11/22 07:51 XR chest 1V portable HISTORY: 32 years-old Female dyspnea acute shortness of breath COMPARISON: Chest radiograph 03/24/2021 TECHNIQUE: AP view of the chest FINDINGS: Cardiomediastinal and hilar silhouettes are within normal limits. No pneumothorax, pleural effusion, airspace consolidation or overt pulmonary edema. Bones of the chest appear grossly intact. IMPRESSION: No acute process. ACT 112: Negative or not required by law. The above report was generated using voice recognition software. It may contain grammatical, syntax or spelling errors. Electronically signed by: Suraj Cornejo M.D. 08/11/2022 8:45 AM
[2022-08-14] MEDS: TOPIRAMATE 100 MG TAB PO SCH (20:56)
[2022-08-15] MEDS: LEVALBUTEROL HCL 0.63 MG/3 ML NEB NEB SCH ×3 (00:17→13:38)
[2022-08-15] MEDS: FORMOTEROL 20 MCG/2 ML VIAL INH SCH (07:33)
[2022-08-15] MEDS: BUDESONIDE 0.5 MG/2 ML VIAL (PULMICORT) NEB SCH (07:33)
--- NOTE | 2022-08-15 07:36 | Pulmonology Progress Note ---
Date of Service August 15, 2022 Assessment & Plan (1) Asthma exacerbation: Asthma persistence: persistent Asthma severity: severe Qualified Code(s): J45.51 - Severe persistent asthma with (acute) exacerbation (2) Shortness of breath: (3) Allergic rhinitis: Plan Chest x-ray 08/11/2022 personally reviewed: Portable film, bilateral costophrenic and cardiophrenic angles are clean, no clear lung infiltrate appreciated --Acute exacerbation of severe persistent asthma On Symbicort 160-4.5 MCG 2 puffs twice daily along with Incruse (patient was not using Incruse on a daily basis) On [employer] Respiratory bio fire negative COVID-19 PCR, influenza A/B, RSV all negative After eosinophil count 330, has been as high as 770 on 03/24/2021 IgE 03/26/2021 of 514 KU/L. ANCA screen negative 03/26/2021. MANISH screen and autoimmune lab testing negative on 02/25/2017. Plan: Continue with tapering steroids Patient will continue with Symbicort as well as Incruse at home Mucinex and flutter valve can be used at home on a as needed basis No further recommendation from pulmonary perspective. We will sign off. Please call directly with any questions Please note the above document was generated using voice recognition software. It may contain grammatical, syntax or spelling errors.Any formal questions or concerns about the content, text or information contained within the body of this dictation should be directly addressed to the provider for clarification. Admission and Anticipated Discharge Date Admission Date: August 11, 2022 Subjective Patient seen and examined at bedside. No acute distress, no adverse events overnight. Patient is doing better when it comes to her breathing, shortness of breath is improved No chest pain. Coughing up clear phlegm. No headache, no nausea, no vomiting Fair appetite. Review of Systems Review of Systems: All systems reviewed & are unremarkable except as noted in Subjective Physical Exam Physical Exam: Constitutional: No acute distress HEENT: EOMI, PERRLA Respiratory system: Good air entry bilaterally, no rhonchi, no crackles, mild expiratory wheeze bilaterally (improved from before) CVS: S1-S2 positive, no murmurs or gallop Abdomen: Soft, nontender, nondistended, positive bowel sounds x4 Extremities: +2 pulses bilaterally radialis/ dorsalis pedis, no cyanosis, no edema Neuro: Awake alert oriented x3 Psych: Normal mood and affect G/U: No Walters Skin: no rashes, warm and dry Lymphatic: no cervical or axillary lymphadenopathy Results & Data Results & Data ([facility]) Vital Signs (Past 12 Hours) Vital Signs Temp Pulse Resp BP Pulse Ox O2 Del Method 08/15/22 07:33 63 16 97 Room Air 08/15/22 00:18 78 16 98 Room Air 08/14/22 22:18 108/64 97 Room Air 08/14/22 22:16 36.9 C 73 18 108/68 93 Room Air Laboratory Results 08/12/22 09:00 08/14/22 08:16 PG Care Time/CCT Total # of Minutes Spent Total Time Spent with Patient: Total time spent is greater than 50% in coordination of care (as documented) at patient's floor/unit and/or counseling patient: Coding Level of Care Code 73352 SUB INP/OBS CARE 2/35MIN Diagnoses Asthma exacerbation J45.51 Asthma persistence: persistent Asthma severity: severe Shortness of breath R06.02 Allergic rhinitis J30.9
[2022-08-15] MEDS ORDERED: predniSONE 20 MG TAB PO SCH (09:00)
[2022-08-15] MEDS: guaiFENesin 600 MG TABCR PO SCH (09:40)
[2022-08-15] MEDS: MONTELUKAST SODIUM 10 MG TABLET PO SCH (09:41)
[2022-08-15] MEDS: ADVANCED PROBIOTIC 1250 MG CAPSULE PO SCH (09:41)
[2022-08-15] MEDS: MULTIVITAMIN TAB PO SCH (09:41)
[2022-08-15] MEDS: LORATADINE 10 MG TAB PO SCH (09:42)
[2022-08-15] MEDS: DOXYCYCLINE HYCLATE 100 MG CAP PO SCH (09:42)
[2022-08-15] MEDS: ENOXAPARIN INJ 40 MG/0.4 ML SYR SQ SCH (09:42)
[2022-08-15] MEDS: PANTOprazole 40 MG TAB PO SCH (09:42)
[2022-08-15] MEDS: UMECLIDINIUM BROMIDE 62.5MCG/BLISTER 7 PUFFS/INHALER INH SCH (09:43)
--- NOTE | 2022-08-15 15:53 | Discharge Summary ---
Date of Service August 15, 2022 Admission HPI Per Admitting Provider This is a 32-year-old female with PMHx of severe persistent asthma, elevated IgE, chronic allergic rhinitis, heart murmur, uterine fibroids, GERD, vitamin D deficiency, demyelinating disease, idiopathic intracranial hypertension, PTSD. She previously has followed with pulmonology, Dr. Marina. Previously at the beginning of June, pt was on prednisone 60 mg daily and then was tapering off by 10 mg each week, most recently was on 10 mg daily. Yesterday she took 60 mg to start a rescue because her breathing acutely worsened. She was feeling short of breath with minimal ADLs, had wheezing, and dry cough. She feels some mucus moving her chest but feels that she cannot cough it up. Unable to walk more than 10 feet to the bathroom, could not physically pick up man her children, and if she was driving her coughing fits were so bad she would have to cable puller. Pt has been using nebulizers nearly [id number] at home in past 24 hours. No supplemental O2 at baseline. Patient does not smoke. Today, she is unable to walk more than 10 feet to the bathroom, could not physically pick up man her children, and if she was driving her coughing fits were so bad she would have to cable puller. Last April was her last Xolair injection. While on this medication she had less flares and better symptom management. Patient notes that since not getting the Xolair injections since April her symptoms have progressed and she feels that she cannot get back to baseline. She feels frustrated with the insurance system regarding the denial of prescription for Xolair. Patient is a single mother of 3 children; ages 7, 5 and 3. She called their father who lives nearly 3+ hours away this morning to come get them, so that she could come to the hospital. [facility] Her family lives is in [place]. In the ER the patient was given 0.3 mg epi, dexamethasone 10 mg, two 1 hour-long nebulizer treatments, 1 g of magnesium and feels slightly improved. Admission Exam Per Admitting Provider General: female, awake, alert, + coughing fits throughout with nebulizer in place Head: Normocephalic, atraumatic ENT: PERRL, EOMI, no pharyngeal exudate, mucous membranes moist Chest: + Nebulizer on, nearly absent breath sounds posteriorly, wheezing anterior chest, no rales or rhonchi, + dry cough Cardiac: Regular rate and rhythm, no murmur, no JVD, normal peripheral pulses, good capillary refill Abdominal: NABS x 4 quadrants, soft, nondistended, nontender to palpation, no rebound or guarding Extremities: Normal inspection, no peripheral edema or erythema, calfs nontender to palpation Psych: Normal mood and affect Neuro: AAO x 3, strength intact bilaterally and rated 5/5, no motor deficits, speech is clear, no peripheral sensory deficits Principal Diagnosis asthma exacerbation Discharge Exam Gen: WD/WN, NAD, sitting in bed, A&Ox3 HEENT: Normocephalic, atraumatic, conjunctivae moist, sclerae anicteric, mucous membranes moist Lung: Clear to Auscultation bilaterally with improved air movement, expiratory wheezes but no rhonchi or rales Heart: Regular rate, regular rhythm, no murmurs, rubs, or gallops Abdomen: Soft, NT, ND +BS x 4 Extremities: no edema Skin: Warm, no rash Discharge Data Allergies Allergy/AdvReac Type Severity Reaction Status Date / Time nickel Allergy Intermediate skin Verified 05/29/22 08:36 becomes raw/tender Sulfa (Sulfonamide Allergy Intermediate Hives Verified 05/29/22 08:36 Antibiotics) sulfamethoxazole Allergy Intermediate HIVES Verified 05/29/22 08:36 trimethoprim Allergy Intermediate HIVES Verified 05/29/22 08:36 Consultations 08/11/22 11:50 Consult Pulmonology Routine Hospital Course (1) Severe persistent asthma dependent on systemic steroids with acute exacerbation: (2) Allergic rhinitis: (3) Shortness of breath: (4) GERD (gastroesophageal reflux disease): (5) Idiopathic intracranial hypertension: (6) Migraines: Plan This is a 32-year-old female with PMHx of severe persistent asthma, elevated IgE, chronic allergic rhinitis, heart murmur, uterine fibroids, GERD, vitamin D deficiency, demyelinating disease, idiopathic intracranial hypertension, PTSD who presented with asthma exacerbation. Was previously on Xolair injections but last was in April due to insurance reasons. Has improved on IV steroids and transitioned by pulmonology to prednisone taper starting this morning. Per pulmonology, patient to continue on high-dose Symbicort twice daily, Incruse inhaler daily, Singulair and prednisone taper at time of discharge. Continue Mucinex and flutter valve at home on an as-needed basis. On day 5 of doxycycline. Set up to resume Xolair injections at [facility] on August 20. Also instructed to continue taking GERD medication regularly to help control cough. Patient hemodynamically stable and comfortable at time of discharge home. Total Time Total Time Spent Total Time Spent (In Minutes): 50 Discharge Plan Discharge Items Patient Disposition: Home - Self-Care Reason For Visit: ASTHMA EXACERBATION Discharge Diagnosis: Asthma exacerbation Activity: Resume your previous activity Non-emergency contact: Primary Care Provider Call non-emergency contact if: you have any medication questions, your symptoms worsen and your pain is concerning for you Follow-up/Referrals: Xolair Injection [Other] (Date & Time 08/20/2022 9:00 AM Provider Pulmonary Gw Department Pulmonary Medicine, [facility] ) Lynette Jorge, [Primary Care Provider] - (Date & Time 08/22/2022 3:20 PM Provider ESTUARDO Guajardo Department Family Practice [facility] ) Diet: Regular Addtl Attending Provider Instructions: You were admitted with asthma exacerbation which has improved on IV steroids, nebulizer treatment and medication adjustments by pulmonology. Respiratory bio fire negative. COVID-19 PCR, influenza A/B, RSV all negative. Continue Symbicort inhaler 2 puffs twice daily, Incruse Ellipta inhaler 1 puff daily, Singulair and prednisone taper (detailed below) Continue flutter valve and Mucinex at home on an as-needed basis RECOMMENDATIONS FOR FOLLOW-UP: Please follow up with PCP as above and [facility] pul for resuming Xolair injections (08/20/22) OTHER INSTRUCTIONS: Seek medical attention if you have: * temperature above 101 * chest pain or trouble breathing * abdominal pain, nausea, vomiting * diarrhea, dark stools or bloody stools * any unanswered questions or concerns Call 911 if symptoms are severe. Please take good care of yourself. Call if you have any questions or problems. You can reach a [facility] hospitalist on duty at [facility] 24 hours a day by calling [phone]. Pending Studies at Discharge: No Stand-Alone Forms: My [facility], Smoking Cessation Medications and DC Order Prescriptions: New prednisone 10 mg tablet 10 mg PO UD Qty: 26 0RF Rx Instructions: Take 4 tabs (40mg) for 2 days, then 3 tabs (30mg) for 3 days, then 2 tabs (20mg) for 3 days, then 1 tab (10mg) for 3 days. guaifenesin [Mucinex] 600 mg Tablet Extended Release 12hr 600 mg PO Q12 Qty: 14 0RF Rx Instructions: Take twice daily Continued rizatriptan 10 mg tablet,disintegrating 10 mg PO .COMPLEX PRN (Reason: migraine headache) 30 Days Qty: 9 5RF Rx Instructions: take 1 tab at onset of headache;if no relief may repeat 1 tab after at least 2 hrs;max 3 tabs/24 hr PRN Xolair 150 mg recon soln 150 mg subcut MONTHLY albuterol sulfate 90 mcg/actuation HFA aerosol inhaler 2 puff inhalation Q4H PRN (Reason: Cough/Wheeze or SOB) multivitamin Tablet 1 tab PO QAM Probiotic 3 billion cell Capsule 3,000 mmu cells PO QAM polyethylene glycol 3350 [Miralax] 17 gram/dose Powder 17 g PO QAM budesonide-formoterol [Symbicort] 160-4.5 mcg/actuation Hfa Aerosol Inhaler 2 puff INHALATION BID omeprazole 20 mg capsule,delayed release(DR/EC) 20 mg PO QAM montelukast [Singulair] 10 mg tablet 10 mg PO QAM Incruse Ellipta 62.5 mcg/actuation blister with device 1 puff inhalation QAM loratadine [Claritin] 10 mg Tablet 10 mg PO DAILY topiramate [Topamax] 100 mg tablet 100 mg PO HS Discharge Orders: Discharge Order (Routine); Ordered 08/15/22 Ordered By: Milena Mistry Admission Data Admit Date/Time: 08/11/22 10:47 Attending Provider: Milena Mistry Admit Provider: Matias Garcia Primary Care Provider: Lynette Jorge Other Providers: Matias Garcia ; Kavya Fields ; Rika Fay Other Interventions: Discharge Summary Assessment (RN) Last Done: 08/15/22 16:33
[2022-08-19] MEDS ORDERED: predniSONE 10 MG TABLET PO SCH (09:00)
== END 2022-08-15 16:48 | disposition home or self-care (01) ==
LOC: ED 07:26 → EDINP 10:47 → SUATTDRO 10:47 → INTOOBSV 10:47 → 2N 12:20 → 3N 08-12 02:52

== ENCOUNTER 2023-07-26 18:15 | Observation (INO) ==
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
--- OUTSIDE RECORDS SUMMARY | 2023-07-26 18:21 | External Medical Summary | Summary of Care ---
Author Name Unknown Organization [facility] Address [address] [place] [place] [id number] Phone [phone] Care Team Providers Care Therapist Physical Name Role Phone Lynette Jorge DO Primary Care Provider [phone] Reason for Visit * Reason Onset Date Comments Order Request 07/20/2023 Encounter Details Date Type Department Care Team (Late st Contact Info) Description 07/20/2023 Telephone Gynecology/Obstetrics [facility] [address] [facility] [place] [address] BackerJessica CRNP [address] [facility] [address] Order Request Allergies Active Allergy Reactions Criticality Noted Date Comments Bactrim Hives High 07/06/2013 Dust Cough High 07/06/2013 Sneezing, coughing, asthma Nickel Rash 03/19/2021 Other Allergy (See Comments) Itching,Wheezing Medium 07/06/2013 Grass- redness, itching, asthma Pollen Cough High 07/06/2013 Sneezing, cough, asthma Sulfa Antibiotics Hives High 07/06/2013 Trimethoprim Hives 05/24/2018 documented as of this encounter (statuses as of 07/20/2023) Medications Medication Sig Dispensed Refills Start Date End Date Status polyethylene glycol 3350 (MIRALAX) packet Take 1 Packet by mouth daily. 14 Each 0 10/12/2018 Active Additional Information Patient taking differently:17 g OralDAILY PRN, Informant: Patient, Reported on 09/22/2022 saline (OCEAN) 0.65 % nasal spray Administer 1 [place] into nostril 2 times a day. And as needed for nasal congestion. 30 mL 12 11/10/2018 Active Vit-Fe Smg-QB-Rqeuu (ONE-A-DAY WOMENS ) 28-0.8 & 223 MG MISC Take 1 Tab by mouth daily. 0 Active Fluticasone Propionate 50 MCG/ACT Nasal Suspension (Flonase)Indications :Severe persistent asthma without complication Administer 2 Sprays into each nostril daily. 18.2 mL 11 01/03/2021 Active oxygen IN GAS Use as directed. 2 lpm as needed 0 Active Loratadine 10 MG Oral Tablet (Claritin) 1 Tablet. 0 04/24/2021 Active Incruse Ellipta 62.5 MCG/INH Inhalation Aerosol Powder Breath Activated (umeclidinium [place]) Inhale by mouth 1 Puff in the morning. 30 Each 4 06/10/2022 Active Omalizumab 150 MG Subcutaneous Solution Reconstituted (Xolair) Inject 300 mg under the skin every 4 weeks. 2.4 mL 11 07/25/2022 Active guaiFENesin ER 600 MG Oral Tablet Extended Release 12 Hour Take 1 Tablet by mouth 2 times a day as needed for Congestion. Take with plenty of water. Do not cut, crush or chew 40 Tablet 2 08/18/2022 Active Albuterol Sulfate (2.5 MG/3ML) 0.083% Inhalation Nebulization Solution (Proventil)Indicatio ns:Severe persistent asthma without complication Inhale 1 Vial via nebulizer every 4 hours as needed for Wheezing or Shortness of Breath. 528 mL 2 09/11/2022 Active Budesonide-Formotero l Fumarate 160-4.5 MCG/ACT Inhalation Aerosol (Symbicort)Indicatio ns:Severe persistent asthma without complication Inhale 2 Puffs by mouth in the morning and 2 Puffs before bedtime. 30.6 g 2 12/09/2022 Active Albuterol Sulfate HFA 108 (90 Base) MCG/ACT Inhalation Aerosol SolutionIndications: Severe persistent asthma without complication INHALE 2 PUFFS EVERY 4 HOURS NEEDED for cough, wheeze, or SOB 18 g 2 03/02/2023 Active EpiPen 2-Renan 0.3 MG/0.3ML Injection Solution Auto-injector For a severe reaction: Inject in outer thigh following instructions on package and go to the Emergency room. 2 Each 3 03/02/2023 Active predniSONE 5 MG Oral Tablet (Deltasone) Take 1 Tablet by mouth in the morning. every morning with food, as instructed.. 35 Tablet 5 06/01/2023 Active Nucala 100 MG/ML Subcutaneous Solution Auto-injector (Mepolizumab) Inject 1 mL under the skin every 4 weeks. 1 mL 12 06/02/2023 Active Progesterone 200 MG Oral Capsule (Prometrium) 0 07/06/2023 Active Hospital, Clinic, or Other Facility Administered Medication Ordered Dose Route Frequency Start Date End Date Status Omalizumab (Xolair) inj 150 mgIndications:Severe persistent asthma without complication 150 mg SC [id number] 09/11/2022 Acti ve Albuterol Sulfate (Proventil) (2.5 MG/3ML) 0.083% inhalation solution 2.5 mgIndications:Severe persistent asthma with (acute) exacerbation 2.5 mg NEBULIZER ONCE PRN 02/02/2023 Acti ve Albuterol Sulfate (Proventil) (2.5 MG/3ML) 0.083% inhalation solution 2.5 mgIndications:Severe persistent asthma with acute exacerbation 2.5 mg NEBULIZER PRN 01/27/2023 01/27/2024 Active documented as of this encounter (statuses as of 07/20/2023) Active Problems Problem Noted Date Diagnosed Date High-risk 07/07/2023 Maternal asthma complicating Overview: Last ER visit 05/29/23 with exacerbation; sees pulmonary. History of delivery 07/07/2023 Overview: bradycardia during maternal asthma attack at 32 weeks History of section complicating pregnan cy 07/07/2023 Overview: x2 History of 07/07/2023 History of retained placenta in prior , currently 07/07/2023 Family history of neural tube defect 07/07/2023 Overview: Pt aunt Family history of congenital heart defect 2022 Overview: FOB - transposition of great vessels, had cardiac surgery as infant Obesity in , antepartum 07/07/2023 Overview: Class 1 Migraine headache 07/07/2023 Weight gain 06/03/2023 PTSD (post-traumatic stress disorder) 09/02/2021 Heart murmur [...] Asthma, severe persistent 07/22/2013 Overview: Admitted to [facility] for acute exacerbation on 10/08/18-10/11/18. Has been admitted monthly since last January. Takes deltasone 10mg daily GERD (gastroesophageal reflux disease) 3 Overview: Nissin fundoplication x2. Not on meds for GERD at time of NOB Last Assessment & Plan: Continue FEED GRINDER famotidine Estimated Date of Delivery Comme nts Yes 02/13/2024 Based on Ultraso und documented as of this encounter (statuses as of 07/20/2023) Resolved Problems Problem Noted Date Diagnosed Date [...] getting steroids and breathing treatments. Continuing on FEED GRINDER inhalers and steroid 40mg daily. Pulmonary medicine [...] INFORMATION 09/28/2018 12/21/2018 Overview: Taking prometrium at [facility] Obesity in , antepartum 09/28/2018 07/12/2019 Overview: BMI: 31.92 kg/m at NOB Pt desires nutrition consult as this is her highest weight, feels it to be associated with prednisone use Early 1hr gtt normal Hypokalemia 01/13/2017 01/13/2017 Overview: 15/16 y/o while in hospital with continuous neb, went in to arrhythmia Single liveborn, [facility], delivered by section 10/03/2016 01/07/2017 INFORMATION 09/09/2016 01/07/2017 Overview: Pt needs to see arlin Peña section in [place] on 10/01/16. RSV (respiratory syncytial virus infection) [...] any current needs or questions 04/21/2019 Hue Rueda, RN 04/21/2019 Problem Action Taken Date entered Entered by Date resolved Current needs or questions Patient denies having any current needs or questions 04/29/2019 Chelsey Dejesus RN 04/29/2019 History of section complicating 04/15/2016 07/12/2019 [...] as of this encounter (statuses as of 07/20/2023) Immunizations Name Administration Dates Next Due H1N1 2009 Influenza, IM 07/30/2009 HPV Vaccine, 9-Valent 04/03/2023,10/21/2022,09/10 Hepatitis B Vaccine, Recombi nant, Adjuvanted, 20 mcg/mL (Heplisav-B) 04/03/2023,09/23/2022 MMR - Measles/Mumps/Rubella Vaccine 05/14/2019 Pneumococcal Conjugate [...] 12/15/2018 Hunger Vital Sign Answer Date Recorded Within the past 12 months, y ou worried that your food would run out before you got the money to buy more. Never true Within the past 12 months, t he food you bought just didn't last and you didn't have money to get more. Sometimes true Sparta Depression Scale Answer Date Recorded Sparta Depression Scale Total 8 07/07/2023 The thought of harming myself has occurred to me . Never 07/07/2023 Estimated Date of Delivery Comme nts Yes 02/13/2024 Based on Ultraso und Sex and Gender Information Value Date Recorded [...] encounter Miscellaneous Notes * Telephone Encounter - Jessica Omer CRNP - 07/20/2023 9:33 AM EST Qnatal order signed. Can get MSAFP to screen for ONTD at 15w-22w6d. ESTUARDO Mathews * Telephone Encounter - Erin Holliday LPN - 07/20/2023 9:17 AM EST Lab calling, states patient is there for quad and qnatal screen. Advised too early for Quad. Please review and sign for qnatal if agreeable. documented in this encounter Plan of Treatment Upcoming Encounters Date Type Department Care Team (Late st Contact Info) Description 07/27/2023 9:00 AM EST Nurse Only Pulmonary Medicine, [address] [place] [address] Gw, Nurse Pulmonary [address] [facility] [place] [address] 07/30/2023 8:00 AM EST Imaging Maternal Medicine Imaging, [place] [address] [facility] [place] [id number] 07/30/2023 8:00 AM EST Office Visit Personnel Technician Obstetrics Maternal Medicine, [facility] [address] [facility] [place] [address] Suzy Funk, [address] [place] [address] 08/07/2023 9:00 AM EST Laboratory Laboratory, [address] [place] [id number] [address] [place] [address] 08/07/2023 9:30 AM EST Office Visit Gynecology/Obstetrics [address] [place] [address] Zunilda Carmen CRNP [address] [facility][1], [place] [address] 09/28/2023 11:40 AM EST Office Visit Pulmonary Medicine, [facility] [address] [place] [place] [address] Ruel Domínguez, [address] [place] [address] 09/29/2023 9:30 AM EST Office Visit Personnel Technician Obstetrics Maternal Medicine, [place] [address] [place] [address] Suzy Funk, [address] [place] [address] 09/29/2023 9:30 AM EST Imaging Radiology [facility], [place] [address] [place] [address] Pending Results Name Type Priority Associated Diagnoses Date /Time QNATAL ADVANCED (QUEST) Lab Routine High-risk in first trimester 07/20/2023 9:36 AM EST Scheduled Orders Name Type Priority Associated Diagnoses Orde r Schedule QNATAL ADVANCED (QUEST) Lab Routine High-risk in first trimester Expected: 07/20/2023 (Approximate), Expires: 07/20/2024 Health Maintenance Due Date Last Done Comments COVID-19 Vaccine (#1) 1996 Depression Screening 12/16/2019 12/15/2018 HPV/Co-Test 2021 Influenza Vaccine (FLU shot) (#1) 2023 09/23/2022, 05/09/2020, 04/18/2019, Additional history exists Cervical Cancer Screening 05/10/2024 Pap Smear 05/10/2024 05/10/2021, 06/08/2017, 01/08/2018, Additional history exists DTaP,Tdap,and Td Vaccines [...] this encounter Medical Devices Implanted Type Area Carpentry Supervisor Device Identifier Shelf Expiration Date Model / Serial / Lot Suture Cinch Long - [id number] Implanted:Qty : 1 on 12/16/[address] MD at OR [facility] N/A: Esophagus [employer] 07/15/2024 [facility]-C01-21 3-L / / [id number] documented as of this encounter Visit Diagnoses Diagnosis High-risk in first trimester- Primary documented in this encounter Advance Directives Latest Code Status [...] the patient have Health Care Power of Corrections Counselor? No Care Teams Therapist Physical Relationship Specialty Start Date End Date Lynette Jorge DO [address] [place] [address] PCP - General Family Medicine 06/25/16 documented as of this encounter
--- OUTSIDE RECORDS SUMMARY | 2023-07-26 18:21 | External Medical Summary ---
Author Name Unknown Address Unknown Organization : Laboratory Report Ordering Provider Test Date Status GUSTABO IBLLINGSLEY 07/20/2023 09:36:58 Final Observation Date Value Abnormality Reference (Units ) Status NUMBER OF FETUSES? 07/20/2023 09:36:58 1 Final ADVANCED MATERNAL AGE? 07/20/2023 09:36:58 NO Final ABNORMAL SCOTT? 07/20/2023 09:36:58 NO Final ABNORMAL US? 07/20/2023 09:36:58 NOT GIVEN Final PERSONAL/FAM HISTORY? 07/20/2023 09:36:58 NOT GIVEN Final INTERPRETATION 07/20/2023 09:36:58 SEE BELOW Final This specimen showed an expe cted representation of
chromosome 21, 18, and 13 material. Results were
not analyzed or reported for microdeletions. See
'Limitations' below. TRISOMY 21 (T21) 07/20/2023 09:36:58 Negative Final TRISOMY 18 (T18) 07/20/2023 09:36:58 Negative Final TRISOMY 13 (T13) 07/20/2023 09:36:58 Negative Final Y CHROMOSOME 07/20/2023 09:36:58 Not detected Final Y CHR. INTERPRETATION 07/20/2023 09:36:58 SEE BELOW Final Consistent with a female fet us. SEX CHROMOSOME 07/20/2023 09:36:58 No aneuploidy Final SEX CHROMOSOME INTERP 07/20/2023 09:36:58 SEE BELOW Final No apparent abnormality was detected. See
'Limitations' below. MICRODELETION 07/20/2023 09:36:58 Opted Out Final MICRODELETION INTERP 07/20/2023 09:36:58 SEE BELOW Final Results were not analyzed or reported for
microdeletions. GESTATIONAL AGE (IN WEEKS) 07/20/2023 09:36:58 10 Final GESTATIONAL AGE (IN DAYS) 07/20/2023 09:36:58 2 Final FRACTION 07/20/2023 09:36:58 12.38% Final LABORATORY COMMENTS 07/20/2023 09:36:58 SEE BELOW Final Laboratory testing supervise d and results
monitored by Juli Vaughan, Ph.D., [facility] [place],
[facility]. LIMITATIONS 07/20/2023 09:36:58 SEE BELOW Final QNatal(R) Advanced is a cell -free DNA test that
screens for increased risk of certain
chromosomal abnormalities that may cause
defects, including Trisomy 21 (Down syndrome),
Trisomy 18, Trisomy 13, and certain sex chromosome
abnormalities (i.e., 45,X, 47,XXY, 47,XXX, and
47,XYY), as well as sex. In addition, if
selected as an option, QNatal(R) Advanced can
screen for certain microdeletions (i.e., 22q, 5p,
1p36, 15q, 11q, 8q, and 4p) that may cause
defects. This test does not assess the risk of
abnormalities such as neural tube defects or
ventral wall defects and should not be considered
in isolation from other clinical findings and
laboratory test results.
QNatal(R) Advanced has been validated in reese
pregnancies for the trisomies and sex chromosome
abnormalities listed above, as well as for
microdeletions, and for the determination of
sex. Sex chromosome aneuploidy analysis is only
performed in reese pregnancies. The test has
also been validated in twin pregnancies for the
trisomies listed above and for microdeletions, but
not for the sex chromosome abnormalities due to
limited data. The test has not been validated in
higher order pregnancies (more than two) because
limited data is available.
Microdeletion screening is limited to the
specified microdeletion regions (see
'Methodology'). The Y chromosome is analyzed for
the determination of sex. The sensitivity
and specificity of sex determination
analysis may be less than that of the Trisomy 21,
18, and 13 analysis and this determination can be
confounded by vanishing twin syndrome in
pregnancies that were originally multiple
gestation pregnancies. It should be noted that
QNatal(R) Advanced is a quantitative analysis of
maternal and placental cfDNA. As a result, the
accuracy of the screening test results may be
affected by the presence of chromosome
abnormalities or microdeletions that are maternal
or confined placental in origin. False positive
findings involving the examined chromosomes and
microdeletion regions may be due to maternal,
placental, or mosaicism, by vanishing twin
syndrome, or other unexplained causes. SPECIFICATIONS 07/20/2023 09:36:58 SEE BELOW Final Sensitivity Specificity
T21 >99.9% >99.9%
T18 >99.9% >99.9%
T13 >99.9% >99.9%
Accuracy
Y >99.9%
Performance of the QNatal Advanced
laboratory-developed test (LDT) has been
determined based on internal analytical
assessment. METHODOLOGY 07/20/2023 09:36:58 SEE BELOW Final Circulating cell-free (cf) D NA was isolated from
plasma followed by detection on a massively
parallel sequencing platform. Bioinformatic
analysis was performed to determine the
representation of chromosomes 21, 18, 13, X and Y
in circulating cell-free DNA. The representation
of sequences from the critical regions involved in
1p36 microdeletion syndrome (1p36),
Rojas-Hirschhorn syndrome (4p), Cri-du-chat
syndrome (5p), Karyn-Giedion syndrome (8p),
Jeff syndrome (11q), Prader Willi
syndrome/Angelman syndrome (15q), and DiGeorge
syndrome (22q) is evaluated for the detection of
microdeletions if requested. This test was
developed, and its performance characteristics
have been determined by [facility]. It has not been
cleared or approved by the U.S. Food and Drug
Administration. Performance characteristics refer
to the analytical performance of the test. This
test is performed pursuant to a license agreement
with [email or web address].
This test was developed and its analytical
performance characteristics have been determined
by [facility]. It has not been cleared or
approved by FDA. This assay has been validated
pursuant to the CLIA regulations and is used for
clinical purposes.
Test performed by [facility]
[address] [facility]
[place] [address]

Real Estate Associate Attorney: Neeta Tripp MD,PHD,[place]LENA
Test Reported by [facility],
[facility],
[address] [place], [place]
Hussain Odonnell M.D., Ph.D., Director of Laboratories
[phone], [id number] Performing Location
--- OUTSIDE RECORDS SUMMARY | 2023-07-26 18:21 | External Medical Summary | Summary of Care ---
Author Name Unknown Organization [facility] Address [address] [place] [address] Phone [phone] Care Team Providers Care Spooler Operator Automatic Name Role Phone Ania Lynette Alejandro GUPTA Primary Care Provider [phone] Reason for Visit * Reason Onset Date Comments Precert Denied 06/02/2023 Tezspire Encounter Details Date Type Department Care Team (Late st Contact Info) Description 06/02/2023 Telephone Pulmonary Medicine, [facility] [address], [place] [phone] Mann Nunez MD [address], [place] [phone] Precert Denied (Tezspire) Allergies Active Allergy Reactions Criticality Noted Date Comments Bactrim Hives High 07/06/2013 Dust Cough High 07/06/2013 Sneezing, coughing, asthma Nickel Rash 03/19/2021 Other Allergy (See Comments) Itching,Wheezing Medium 07/06/2013 Grass- redness, itching, asthma Pollen Cough High 07/06/2013 Sneezing, cough, asthma Sulfa Antibiotics Hives High 07/06/2013 Trimethoprim Hives 05/24/2018 documented as of this encounter (statuses as of 07/21/2023) Medications Medication Sig Dispensed Refills Start Date End Date Status polyethylene glycol 3350 (MIRALAX) packet Take 1 Packet by mouth daily. 14 Each 0 9 Active Additional Information Patient taking differently:17 g OralDAILY PRN, Informant: Patient, Reported on 09/22/2022 saline (OCEAN) 0.65 % nasal spray Administer 1 [place] into nostril 2 times a day. And as needed for nasal congestion. 30 mL 12 9 Active Vit-Fe Ldt-UO-Bjjcu (ONE-A-DAY WOMENS ) 28-0.8 & 223 MG [...] MCG/INH Inhalation Aerosol Powder Breath Activated (umeclidinium [place]) Inhale by mouth 1 Puff in the [...] Emergency room. 2 Each 3 3 Active predniSONE 5 MG Oral Tablet (Deltasone) Take 1 Tablet by mouth in the morning. every morning with food, as instructed.. 35 Tablet 5 3 Active Nucala 100 MG/ML Subcutaneous Solution Auto-injector (Mepolizumab) Inject 1 mL under the skin every 4 weeks. 1 mL 12 3 Active Iron-Vitamin C 65-125 MG Oral [...] persistent asthma without complication 150 mg SC [id number] 09/11/2022 Acti ve Albuterol Sulfate (Proventil) (2.5 MG/3ML) 0.083% inhalation solution 2.5 mgIndications:Severe persistent asthma with (acute) exacerbation 2.5 mg NEBULIZER ONCE PRN 02/02/2023 Acti ve Albuterol Sulfate (Proventil) (2.5 MG/3ML) 0.083% inhalation solution 2.5 mgIndications:Severe persistent asthma with acute exacerbation 2.5 mg NEBULIZER PRN 01/27/2023 01/27/2024 Active documented as of this encounter (statuses as of 07/21/2023) Active Problems Problem Noted Date Diagnosed Date [...] = 27 Suggest discussing with PCP, elizabeth muñoz, suggest taking up to 2000 IU Vit D3 daily during . Idiopathic intracranial hypertension 06/08/2017 Neurologic disorder 06/08/2017 Overview: Demyelinating disorder. Hx idiopathic intracranial hypertension. Iron deficiency anemia 08/09/2016 Allergic rhinitis 08/08/2013 Asthma, severe persistent 07/22/2013 Overview: Admitted to [facility] [place] for acute exacerbation on 10/08/18-10/11/18. Has been admitted monthly since last January. Takes deltasone 10mg daily GERD (gastroesophageal reflux disease) 3 Overview: Nissin fundoplication x2. Not on meds for GERD at time of NOB Last Assessment & Plan: Continue ENVIRONMENTAL SERVICES TECHNICIAN famotidine documented as of this encounter (statuses as of 07/21/2023) Resolved Problems Problem Noted Date Diagnosed Date [...] getting steroids and breathing treatments. Continuing on ENVIRONMENTAL SERVICES TECHNICIAN inhalers and steroid 40mg daily. Pulmonary medicine [...] having any current needs or questions 11/23/2018 uHe Rueda RN 11/23/2018 Problem Action Taken Date entered Entered by Date resolved Current needs or questions Patient denies having any current needs or questions 01/25/2019 Maria A Amaro RN 01/25/19 INFORMATION 09/28/2018 12/21/2018 Overview: Taking prometrium at [facility] Obesity in , antepartum 09/28/2018 07/12/2019 Overview: BMI: 31.92 kg/m at B Pt desires nutrition consult as this is her highest weight, feels it to be associated with prednisone use Early 1hr gtt normal Hypokalemia 01/13/2017 01/13/2017 Overview: [age] y/o while in hospital with continuous neb, went in to arrhythmia Single liveborn, born in [facility], delivered by section 10/03/2016 01/07/2017 INFORMATION 09/09/2016 01/07/2017 Overview: Pt needs to see arlin Peña section in [facility] on 10/01/16. RSV (respiratory syncytial virus infection) [...] as of this encounter (statuses as of 07/21/2023) Immunizations Name Administration Dates Next Due H1N1 2008 Influenza, IM 07/30/2009 HPV Vaccine, 9-Valent 04/03/2023,10/21/2022,09/10 Hepatitis B Vaccine, Recombi nant, Adjuvanted, 20 mcg/mL (Heplisav-B) 04/03/2023,09/23/2022 MMR - Measles/Mumps/Rubella Vaccine 05/14/2019 Pneumococcal Conjugate Vacc, 13 Valent (Prevnar) 08/05/2018 Pneumococcal Polysaccharide PPV23 (Pneumovax) 03/10/2018,04/25/2014,10/06/2013 Seasonal Influenza Virus Vac cine, Unspecified Formulation 04/18/2019,08/05/2018,04/10/2017,07/10,04/25/2014,04/14/2014,07/06/2013 Seasonal Influenza, PF, 6 M & above, IM , (FluLaval or Fluzone) 09/23/2022,05/09/2020,04/18/2019,08/05 Seasonal Influenza, Quadriva lent, No Preserve, IM [...] have money to get more. Sometimes true [place] Depression Scale Answer Date Recorded [place] Depression Scale Total 8 07/07/2023 The thought of harming myself has occurred to me . Never 07/07/2023 Sex and Gender Information Value Date Recorded [...] encounter Miscellaneous Notes * Telephone Encounter - Alejandra Robertson, MED ASSIST - 07/21/2023 9:49 AM EST Xolair Auth on file 07.04.23, still experiencing asthma exacerbations and Dr. Nunez recommends changing biologic. Nucala denied by insurance 06.29.23. Tezspire denied by insurance 07.16.23. Will cancel 07.27 Xolair injection visit at this time. Dr. Nunez to advise alternative if applicable, Fasenra or Dupixent. * Telephone Encounter - Judy Del Toro OSA - 07/21/2023 6:48 AM EST Auth request for tezspire denied, would you like to try for Fasenra or Dupixent ( preferred medications) ? Pt has apt on 07/27 for xolair ( no active auth) Please send TE to p [phone] on what medication needs auth. * Telephone Encounter - Judy Del Toro OSA - 07/16/2023 7:11 AM EST Images from the original note were not included. AUTH REQUEST FOR TEZSPIRE DENIED: PREFERRED DRUGS: FASENREA OR DUPIXENT. * Telephone Encounter - Judy Del Toro OSA - 07/15/2023 10:21 AM EST Requested auth. Contact plan to follow up on [email or web address] * Telephone Encounter - Alejandra Robertson MED ASSIST - 07/15/2023 9:[address] Nunez states that "Juliette is fine" - pt preference for location for injection, however she is physically closer to the [facility] office which she may prefer. * Telephone Encounter - Susanna Magana CPhT - 07/10/2023 11:34 AM EST Madi, We see the PA for Nucala has been denied. Will an appeal be done? We are going to profile the script at this time, if the PA gets approved please let us know so we can rerun the script. Thank you Susanna Magana [facility] Registered Nurse [facility] 07/10/2023,11:35 AM * Telephone Encounter - Judy Del Toro HUGO - 06/29/2023 11:33 AM EST Images from the original note were not included. AUTH REQUEST DENIED: * Telephone Encounter - Judy Del Toro HUGO - 06/29/2023 10:33 AM EST Requested auth. Contact plan to follow up on [id number] * Telephone Encounter - Susanna Magana CPhT - 06/25/2023 1:09 PM EST Madi, Just checking to see if there has been any progress on this PA yet. Thank you Susanna Magana [facility] Registered [facility] 06/25/2023,1:10 PM. * Telephone Encounter - Faviola Mora CPhT - 06/16/2023 2:10 PM EST Checking on the status of the pa for the Nucala, please advise Thank you Faviola Mora Travel Registered Nurse Oncology [facility] Specialty Rx 06/16/2023,2:10 PM * Telephone Encounter - Hue Houser, [facility] - 06/04/2023 2:52 PM EDT Please see Pulmonary pre-cert request for Mepolizumab (Nucala) 100mg/ml Pen - 100mg every 4 weeks .- route referral message with approval, denial or questions back to Pulmonary Pharmacist Pool [id number]. Current Asthma Medications: Controller(s): - Symbicort 160-4.5 mcg/act, 2 puffs BID - Flovent 220 mcg/act, 2 puffs nightly - Incruse ellipta 62.5 mcg/inh, 1 puff daily - montelukast 10 mg PO daily - Quick-relief: albuterol HFA, nebulization solution Asthma Controller Adherence Assessment: Refill information calculated based on data from the past 365 days Medication Possession Ratio for controller medications (goal >80%): 1. Symbicort: ~33% (Last refill 03/31/23) 2. Flovent: No refills reported in past 12 months 3. Incruse: No refills reported in past 12 months 4. Montelukast: No refills reported in past 12 months Systemic Steroid use in past 12 months: Dispensed Days Supply Quantity Provider Pharmacy PREDNISONE 5MG TAB(S) 06/03/2023 34 35 Each PREDNISONE 5 MG TABLET 05/30/2023 5 5 Each Marilyn Gallegos MD [facility]/pharmacy #[id number]... PREDNISONE 10MG TAB(S) 08/15/2022 11 26 Each PREDNISONE 10MG TAB(S) 06/10/2022 30 151 Each ER/Urgent Care Encounters for Asthma in past 12 months: None Previous Biologics Tried/Failed: Xolair 05/2019 - present Results: IgE: Latest Reference Range & Units 07/22/22 15:10 04/03/23 10:40 IgE <=214.0 kU/L 153.0 394.0 (H) (H): Data is abnormally high RAST: Latest Reference Range & Units 04/03/23 10:40 [place] Grass IgE <0.10 kUa/L 0.21 Taz Grass IgE <0.10 kUa/L 1.66 ! Mite Farinae IgE <0.10 kUa/L 79.80 ! Mite Pteronyssinus IgE <0.10 kUa/L 55.30 ! Acremonium Kiliense IgE <0.10 kUa/L <0.10 Alternaria IgE <0.10 kUa/L <0.10 Aspergillus IgE <0.10 kUa/L <0.10 Cladosporium IgE <0.10 kUa/L <0.10 Helminthosporium IgE <0.10 kUa/L <0.10 Penicillium Notatum IgE <0.10 kUa/L <0.10 Pullularia IgE <0.10 kUa/L <0.10 Cat Dander IgE <0.10 kUa/L 3.05 ! Dog Dander IgE <0.10 kUa/L 0.44 ! Birch IgE <0.10 kUa/L <0.10 [place] Maple IgE <0.10 kUa/L <0.10 [place] IgE <0.10 kUa/L <0.10 Elm IgE <0.10 kUa/L <0.10 [place] IgE <0.10 kUa/L <0.10 Pecan [place] IgE <0.10 kUa/L <0.10 [place] Tree IgE <0.10 kUa/L <0.10 [place] IgE <0.10 kUa/L <0.10 Cocklebur IgE <0.10 kUa/L <0.10 Common Ragweed IgE <0.10 kUa/L 0.33 [place] Plantain IgE <0.10 kUa/L <0.10 Cook's Quarter IgE <0.10 kUa/L <0.10 Mugwort IgE <0.10 kUa/L <0.10 Pigweed IgE <0.10 kUa/L <0.10 Sheep [place] IgE <0.10 kUa/L <0.10 !: Data is abnormal Absolute Eosinophil Count: Latest Reference Range & Units 07/22/22 15:10 04/03/23 10:40 Absolute Eosinophils 0.00 - 0.70 K/uL 0.33 0.17 PFT: Latest Reference Range & Units 05/26/18 09:20 03/09/19 12:26 03/27/20 11:17 01/27/23 11:15 FEV1 Actual Pre L 1.81 1.54 1.79 1.72 FEV1 Actual Pre %Predict % 62 46 54 60 FEV1 Actual Post L 2.45 2.25 2.55 2.53 FEV1 Actual Post %Change % 35 45 42 28 * Telephone Encounter - Alejandra Robertson MED ASSIST - 06/02/2023 12:24 PM EDT Pulmonary Medicine Pre-Cert Request Medication/Disease State Information: Medication: Mepolizumab (Nucala) 100mg/ml Pen - 100mg every 4 weeks . Is the patient able and willing to self inject? Yes. Patient will transition to home after first 3 doses in clinic. Has patient been prescribed an EpiPen: No Informed consent obtained: N/A Diagnosis (including ICD-10): Asthma - Severe persistent asthma, uncomplicated J45.50 Location: [facility] [place]: Route pre-cert request to [facility]. Referral to pharmacist for: Clinical co-management. Medication(s) Tried/Failed/Contraindicated: Xolair See corresponding visit note(s) for additional supporting clinical information. Office Information: Prescriber: Dr. Nunez documented in this encounter Plan of Treatment Upcoming Encounters Date Type Department Care Team (Late st Contact Info) Description 07/30/2023 8:00 AM EST Imaging Maternal Medicine Imaging, [facility] [address] [facility] [place] [phone] 07/30/2023 8:00 AM EST Office Visit Cushion Stuffer Obstetrics Maternal Medicine, [address] [place] [address] Suzy Funk, DO [address] [facility] [place] [address] 08/07/2023 9:00 AM EST Laboratory Laboratory, [facility] [address] [place] [phone] VigilHong barnett [facility] [address] [facility] [place] [address] 08/07/2023 9:30 AM EST Office Visit Gynecology/Obstetrics [facility] [address] [facility] [place] [address] Zunilda Carmen CRNP [address] [place] [address] 09/28/2023 11:40 AM EST Office Visit Pulmonary Medicine, [facility] [address] [facility] [place] [address] Ruel Domínguez, [address] [place] [address] 09/29/2023 9:30 AM EST Office Visit Cushion Stuffer Obstetrics Maternal Medicine, [place] [address], [place] [phone] Suzy Funk, [address] [place] [address] 09/29/2023 9:30 AM EST Imaging Radiology [facility], [facility] [address] [place] [address] Health Maintenance Due Date Last Done Comments [...] this encounter Medical Devices Implanted Type Area Manager Card Device Identifier Shelf Expiration Date Model / Serial / Lot Suture Olivia Long - [id number] Implanted:Qty : 1 on 12/16/[address] MD at OR [facility] N/A: Esophagus [employer] 07/15/2024 [facility]-C01-21 3-L / / [id number] documented as of this encounter Advance Directives [...] the patient have Health Care Power of Penology Professor? No Care Teams Spooler Operator Automatic Relationship Specialty Start Date End Date Lynette Jorge DO [address] [address] PCP - General Family Medicine 06/25/16 documented as of this encounter
--- OUTSIDE RECORDS SUMMARY | 2023-07-26 18:21 | External Medical Summary | Summary of Care ---
Author Name Unknown Organization [facility] Address [address] [place] [address] Phone [phone] Care Team Providers Care Business Broker Name Role Phone Ania Lynette Alejandro GUPTA Primary Care Provider [phone] Reason for Visit * Reason Onset Date Comments Precert Denied 06/02/2023 Tezspire Encounter Details Date Type Department Care Team (Late st Contact Info) Description 06/02/2023 Telephone Pulmonary Medicine, [facility] [address], [place] [phone] Mann Nunez MD [address], [place] [phone] Precert Denied (Tezspire) Allergies Active Allergy Reactions [...] (OCEAN) 0.65 % nasal spray Administer 1 [place] into nostril 2 times a day. And as needed for nasal congestion. 30 mL 12 9 Active Vit-Fe Yoj-IS-Hmdxz (ONE-A-DAY WOMENS ) 28-0.8 & 223 MG [...] MCG/INH Inhalation Aerosol Powder Breath Activated (umeclidinium [place]) Inhale by mouth 1 Puff in the [...] persistent asthma without complication 150 mg SC [id number] 09/11/2022 Acti ve Albuterol Sulfate (Proventil) (2.5 [...] Asthma, severe persistent 07/22/2013 Overview: [place] [facility] [place] 10/08/18-10/11/18. Has been admitted monthly since last January. Takes deltasone 10mg daily GERD (gastroesophageal reflux disease) 3 Overview: Nissin fundoplication x2. Not on meds for GERD at time of NOB Last Assessment & Plan: Continue EQUINE VET famotidine documented as of this encounter (statuses [...] getting steroids and breathing treatments. Continuing on EQUINE VET inhalers and steroid 40mg daily. Pulmonary medicine [...] INFORMATION 09/28/2018 12/21/2018 Overview: Taking prometrium at [facility] Obesity in , antepartum 09/28/2018 07/12/2019 Overview: BMI: 31.92 kg/m at B Pt desires nutrition consult as this is her highest weight, feels it to be associated with prednisone use Early 1hr gtt normal Hypokalemia 01/13/2017 01/13/2017 Overview: [age] y/o while in hospital with continuous neb, went in to arrhythmia Single liveborn, born in [facility], delivered by section 10/03/2016 01/07/2017 INFORMATION 09/09/2016 01/07/2017 Overview: Pt needs to see arlin Peña section in [place] on 10/01/16. RSV (respiratory syncytial virus infection) [...] have money to get more. Sometimes true [place] Depression Scale Answer Date Recorded [place] Depression Scale Total 8 07/07/2023 The thought [...] encounter Miscellaneous Notes * Telephone Encounter - Judy Del Toro OSA - 07/21/2023 6:48 AM EST Auth request for tezspire denied, would you like to try for Fasenra or Dupixent ( preferred medications) ? Pt has apt on 07/27 for xolair ( no active auth) Please send TE to p [phone] on what medication needs auth. * Telephone Encounter - Judy Del Toro OSA - 07/16/2023 7:11 AM EST Images from the original note were not included. AUTH REQUEST FOR TEZSPIRE DENIED: PREFERRED DRUGS: FASENREA OR DUPIXENT. * Telephone Encounter - Judy Del Toro HUGO - 07/15/2023 10:21 AM EST Requested auth. Contact plan to follow up on [id number] * Telephone Encounter - Alejandra Robertson, MED ASSIST - 07/15/2023 9:[address] Nunez states that "Tezspire is fine" - pt preference for location for injection, however she is physically closer to the [facility] office which she may prefer. * Telephone Encounter - Susanna Magana [facility] - 07/10/2023 11:34 AM EST Madi, We see the PA for Nucala has been denied. Will an appeal be done? We are going to profile the script at this time, if the PA gets approved please let us know so we can rerun the script. Thank you Susanna Magana [facility] Stretcher Leveler Operator [facility] 07/10/2023,11:35 AM * Telephone Encounter - Judy Del Toro OSA - 06/29/2023 11:33 AM EST Images from the original note were not included. AUTH REQUEST DENIED: * Telephone Encounter - Judy Del Toro OSA - 06/29/2023 10:33 AM EST Requested auth. Contact plan to follow up on [id number] * Telephone Encounter - Susanna Magana CPhT - 06/25/2023 1:09 PM EST Madi, Just checking to see if there has been any progress on this PA yet. Thank you Susanna Magana [facility] Stretcher Leveler Operator [facility] Specialty RX 06/25/2023,1:10 PM. * Telephone Encounter - Faviola Mora CPhT - 06/16/2023 2:10 PM EST Checking on the status of the pa for the Nucala, please advise Thank you Faviola Mora Stretcher Leveler Operator III [facility] 06/16/2023,2:10 PM * Telephone Encounter - Hue Houser RP - 06/04/2023 2:52 PM EDT Please see Pulmonary pre-cert request for Mepolizumab (Nucala) 100mg/ml Pen - 100mg every 4 weeks .- route referral message with approval, denial or questions back to Pulmonary [facility] [id number]. Current Asthma Medications: Controller(s): - Symbicort 160-4.5 [...] 5 5 Each Marilyn Gallegos MD E [facility] #[id number]... PREDNISONE 10MG TAB(S) 08/15/2022 11 26 [...] 0.44 ! Birch IgE <0.10 kUa/L <0.10 [place] Maple IgE <0.10 kUa/L <0.10 [place] IgE <0.10 kUa/L <0.10 Elm IgE <0.10 kUa/L <0.10 [place] IgE <0.10 kUa/L <0.10 Pecan [place] IgE <0.10 kUa/L <0.10 [place] Tree IgE <0.10 kUa/L <0.10 [place] IgE <0.10 kUa/L <0.10 Cocklebur IgE <0.10 kUa/L <0.10 Common Ragweed IgE <0.10 kUa/L 0.33 [place] Plantain IgE <0.10 kUa/L <0.10 Cook's Quarter IgE <0.10 kUa/L <0.10 Mugwort IgE <0.10 kUa/L <0.10 Pigweed IgE <0.10 kUa/L <0.10 Sheep [facility] IgE <0.10 kUa/L <0.10 !: Data is [...] 42 28 * Telephone Encounter - Alejandra Robertson, MED ASSIST - 06/02/2023 12:24 PM EDT [...] - Severe persistent asthma, uncomplicated J45.50 Location: [facility]: Route pre-cert request to [id number]. Referral to pharmacist for: Clinical co-management. Medication(s) Tried/Failed/Contraindicated: Xolair See corresponding visit note(s) for additional supporting clinical information. Office Information: Prescriber: Dr. Nunez documented in this encounter Plan of Treatment Upcoming Encounters Date Type Department Care Team (Late st Contact Info) Description 07/27/2023 9:00 AM EST Nurse Only Pulmonary Medicine, [facility] [address] [facility] [place] [address] Gw, Nurse Pulmonary [address] [facility] [place] [address] 07/30/2023 8:00 AM EST Imaging Maternal Medicine Imaging, [address] [place] [phone] 07/30/2023 8:00 AM EST Office Visit Casting And Locker Room Servicer Obstetrics Maternal Medicine, [facility] [address] [facility] [place] [address] Suzy Funk, DO [address] [place] [address] 08/07/2023 9:00 AM EST Laboratory Laboratory, [facility] [address] [facility] [place] [phone] VigilHong [facility] [address] [facility] [place] [address] 08/07/2023 9:30 AM EST Office Visit Gynecology/Obstetrics [facility] [address] [facility] [place] [address] Zunilda Carmen CRNP [address] [place] [address] 09/28/2023 11:40 AM EST Office Visit Pulmonary Medicine, [facility] [address] [facility] [place] [address] Ruel Domínguez, [address] [place] [address] 09/29/2023 9:30 AM EST Office Visit Casting And Locker Room Servicer Obstetrics Maternal Medicine, [place] [address] [place] [address] Suzy Funk, [address] [place] [address] 09/29/2023 9:30 AM EST [facility] [address] [place], [place] [phone] Health Maintenance Due Date Last Done Comments [...] this encounter Medical Devices Implanted Type Area Editorial Specialist Device Identifier Shelf Expiration Date Model / Serial / Lot Suture Cinch Long - [id number] Implanted:Qty : 1 on 12/16/[address] Temp[address] MD at OR [facility] N/A: Esophagus [employer] 07/15/2024 [facility]-C01-21 3-L / / [id number] documented as of this encounter Advance Directives [...] the patient have Health Care Power of Payroll Officer? No Care Teams Business Broker Relationship Specialty Start Date End Date Lynette Jorge DO [address] [address] PCP - General Family Medicine 06/25/16 documented as of this encounter
--- OUTSIDE RECORDS SUMMARY | 2023-07-26 18:21 | External Medical Summary | Summary of Care ---
Author Name Unknown Organization [facility] Address [address] [place] [address] Phone [phone] Care Team Providers Care Starch Cooker Name Role Phone Ania Lynette Alejandro GUPTA Primary Care Provider [phone] Reason for Visit * Reason Onset Date Comments Precert Denied 06/02/2023 Tezspire Encounter Details Date Type Department Care Team (Late st Contact Info) Description 06/02/2023 Telephone Pulmonary Medicine, [place] [address], [place] [phone] Mann Nunez MD [address], [place] [phone] Precert Denied (Tezspire) Allergies Active Allergy Reactions Criticality Noted Date Comments Bactrim Hives High 07/06/2013 Dust Cough High 07/06/2013 Sneezing, coughing, asthma Nickel Rash 03/19/2021 Other Allergy (See Comments) Itching,Wheezing Medium 07/06/2013 Grass- redness, itching, asthma Pollen Cough High 07/06/2013 Sneezing, cough, asthma Sulfa Antibiotics Hives High 07/06/2013 Trimethoprim Hives 05/24/2018 documented as of this encounter (statuses as of 07/16/2023) Medications Medication Sig Dispensed Refills Start Date End Date Status polyethylene glycol 3350 (MIRALAX) packet Take 1 Packet by mouth daily. 14 Each 0 9 Active Additional Information Patient taking differently:17 g OralDAILY PRN, Informant: Patient, Reported on 09/22/2022 saline (OCEAN) 0.65 % nasal spray Administer 1 [place] into nostril 2 times a day. And as needed for nasal congestion. 30 mL 12 9 Active Vit-Fe Rnf-EW-Elzlm (ONE-A-DAY WOMENS ) 28-0.8 & 223 MG [...] MCG/INH Inhalation Aerosol Powder Breath Activated (umeclidinium Vincent) Inhale by mouth 1 Puff in the [...] persistent asthma without complication 150 mg SC [id number] 09/11/2022 Acti ve Albuterol Sulfate (Proventil) (2.5 MG/3ML) 0.083% inhalation solution 2.5 mgIndications:Severe persistent asthma with (acute) exacerbation 2.5 mg NEBULIZER ONCE PRN 02/02/2023 Acti ve Albuterol Sulfate (Proventil) (2.5 MG/3ML) 0.083% inhalation solution 2.5 mgIndications:Severe persistent asthma with acute exacerbation 2.5 mg NEBULIZER PRN 01/27/2023 01/27/2024 Active documented as of this encounter (statuses as of 07/16/2023) Active Problems Problem Noted Date Diagnosed Date [...] Asthma, severe persistent 07/22/2013 Overview: Ad[place] [facility] [place] on 10/08/18-10/11/18. Has been admitted monthly since last January. Takes deltasone 10mg daily GERD (gastroesophageal reflux disease) 3 Overview: Nissin fundoplication x2. Not on meds for GERD at time of NOB Last Assessment & Plan: Continue CONSULTING SOLUTION MANAGER famotidine documented as of this encounter (statuses as of 07/16/2023) Resolved Problems Problem Noted Date Diagnosed Date [...] getting steroids and breathing treatments. Continuing on CONSULTING SOLUTION MANAGER inhalers and steroid 40mg daily. Pulmonary medicine [...] INFORMATION 09/28/2018 12/21/2018 Overview: Taking prometrium at [facility] Obesity in , antepartum 09/28/2018 07/12/2019 Overview: BMI: 31.92 kg/m at B Pt desires nutrition consult as this is her highest weight, feels it to be associated with prednisone use Early 1hr gtt normal Hypokalemia 01/13/2017 01/13/2017 Overview: [age] y/o while in hospital with continuous neb, went in to arrhythmia Single liveborn, born in [facility], delivered by section 10/03/2016 01/07/2017 INFORMATION 09/09/2016 01/07/2017 Overview: Pt needs to see arlin Peña section in [place] on 10/01/16. RSV (respiratory syncytial virus infection) [...] as of this encounter (statuses as of 07/16/2023) Immunizations Name Administration Dates Next Due H1N1 [...] have money to get more. Sometimes true [place] Depression Scale Answer Date Recorded [place] Depression Scale Total 8 07/07/2023 The thought [...] Notes * Telephone Encounter - Judy Del Toro, HUGO - 07/16/2023 7:11 AM EST Images from the original note were not included. AUTH REQUEST FOR TESudheerSPIRE DENIED: PREFERRED DRUGS: FASENREA OR DUPIXENT. * Telephone Encounter - Judy Del Toro HUGO - 07/15/2023 10:21 AM EST Requested auth. Contact plan to follow up on [email or web address] * Telephone Encounter - Alejandra Robertson, MED ASSIST - 07/15/2023 9:[address] Nunez states that "Juliette is fine" - pt preference for location for injection, however she is physically closer to the [facility] office which she may prefer. * Telephone Encounter - Susanna Magana CPhT - 07/10/2023 11:34 AM EST Hello, We see the PA for Nucala has been denied. Will an appeal be done? We are going to profile the script at this time, if the PA gets approved please let us know so we can rerun the script. Thank you Susanna Magana [facility] Cream Ripener [facility] 07/10/2023,11:35 AM * Telephone Encounter - Judy Del Toro OSA - 06/29/2023 11:33 AM EST Images from the original note were not included. AUTH REQUEST DENIED: * Telephone Encounter - Judy Del Toro OSA - 06/29/2023 10:33 AM EST Requested auth. Contact plan to follow up on [email or web address] * Telephone Encounter - Susanna Magana CPhT - 06/25/2023 1:09 PM EST Madi, Just checking to see if there has been any progress on this PA yet. Thank you Susanna Magana [facility] Cream Ripener [facility] 06/25/2023,1:10 PM. * Telephone Encounter - Faviola Mora CPhT - 06/16/2023 2:10 PM EST Checking on the status of the pa for the Nucala, please advise Thank you Faviola Mora Cream Ripener III [facility] 06/16/2023,2:10 PM * Telephone Encounter - Hue Houser [facility] - 06/04/2023 2:52 PM EDT Please see Pulmonary pre-cert request for Mepolizumab (Nucala) 100mg/ml Pen - 100mg every 4 weeks .- route referral message with approval, denial or questions back to Pulmonary Pharmacist Pool [id number]. Current Asthma Medications: Controller(s): - Symbicort 160-4.5 [...] 0.44 ! Birch IgE <0.10 kUa/L <0.10 [place] Maple IgE <0.10 kUa/L <0.10 [place] IgE <0.10 kUa/L <0.10 Elm IgE <0.10 kUa/L <0.10 [place] IgE <0.10 kUa/L <0.10 Pecan [place] IgE <0.10 kUa/L <0.10 [place] Tree IgE <0.10 kUa/L <0.10 White Anthony IgE <0.10 kUa/L <0.10 Cocklebur IgE <0.10 kUa/L <0.10 Common Ragweed IgE <0.10 kUa/L 0.33 [place] Plantain IgE <0.10 kUa/L <0.10 Cook's Quarter IgE <0.10 kUa/L <0.10 Mugwort IgE <0.10 kUa/L <0.10 Pigweed IgE <0.10 kUa/L <0.10 Sheep [place] IgE <0.10 kUa/L <0.10 !: Data is [...] - Severe persistent asthma, uncomplicated J45.50 Location: [facility]: Route pre-cert request to [id number]. Referral to pharmacist for: Clinical co-management. Medication(s) Tried/Failed/Contraindicated: Xolair See corresponding visit note(s) for additional supporting clinical information. Office Information: Prescriber: Dr. Nunez documented in this encounter Plan of Treatment Upcoming Encounters Date Type Department Care Team (Late st Contact Info) Description 07/27/2023 9:00 AM EST Nurse Only Pulmonary Medicine, [facility] [address] [facility] [place] [address] Gw, Nurse Pulmonary [address] [facility] [place] [address] 07/30/2023 8:00 AM EST Imaging Maternal Medicine Imaging, [address] [place] [phone] 07/30/2023 8:00 AM EST Office Visit Sales Operations Coordinator Obstetrics Maternal Medicine, [address] [place] [address] Suzy Funk, DO [address] [place] [address] 08/07/2023 9:00 AM EST Laboratory Laboratory, [address] [place] [phone] [facility] [address] [place] [address] 08/07/2023 9:30 AM EST Office Visit Gynecology/Obstetrics [facility] 132 [facility] [place] [address] Zunilda Carmen CRNP 132 [facility] [place] [address] 09/28/2023 11:40 AM EST Office Visit Pulmonary Medicine, [facility] [address] [facility] [place] [address] Ruel Domínguez, [address] [place] [address] 09/29/2023 9:30 AM EST Office Visit Sales Operations Coordinator Obstetrics Maternal Medicine, [place] [address], [place] [phone] Suzy Funk, [address], [place] [phone] 09/29/2023 9:30 AM EST Imaging Radiology [facility] [place], [place] [address] [place], [place] [phone] Health Maintenance Due Date Last Done Comments COVID-19 Vaccine (#1) 1996 Depression Screening 12/16/2019 12/15/2018 HPV/Co-Test 2021 Influenza Vaccine (FLU shot) (#1) 2023 09/23/2022, 05/09/2020, 04/18/2019, Additional history exists Cervical Cancer Screening 05/10/2024 Pap Smear 05/10/2024 05/10/2021, 08/2017, 01/08/2018, Additional history exists DTaP,Tdap,and Td [...] this encounter Medical Devices Implanted Type Area Sand Mixer Operator Device Identifier Shelf Expiration Date Model / Serial / Lot Suture Olivia Baer - [id number] Implanted:Qty : 1 on 12/16/[address] MD at OR [facility] N/A: Esophagus [employer] 07/15/2024 [facility]-C01-21 3-L / / [id number] documented as of this encounter Advance Directives [...] the patient have Health Care Power of Administrative Underwriter? No Care Teams Starch Cooker Relationship Specialty Start Date End Date Lynette Jorge DO [address] [place] [address] PCP - General Family Medicine 06/25/16 documented as of this encounter
--- OUTSIDE RECORDS SUMMARY | 2023-07-26 18:21 | External Medical Summary | Summary of Care ---
Author Name Unknown Organization [facility] Address [address] [place] [address] Phone [phone] Care Team Providers Care Computed Tomography Technician Name Role Phone Ania Lynette Alejandro GUPTA Primary Care Provider [phone] Reason for Visit * Reason Onset Date Comments Precert Denied 06/02/2023 Tezspire Encounter Details Date Type Department Care Team (Late st Contact Info) Description 06/02/2023 Telephone Pulmonary Medicine, [place] [address] [place], [place] [phone] Mann Nunez MD [address] [place], [place] [phone] Precert Denied (Tezspire) Allergies Active Allergy Reactions Criticality Noted Date Comments Bactrim Hives High 07/06/2013 Dust Cough High 07/06/2013 Sneezing, coughing, asthma Nickel Rash 03/19/2021 Other Allergy (See Comments) Itching,Wheezing Medium 07/06/2013 Grass- redness, itching, asthma Pollen Cough High 07/06/2013 Sneezing, cough, asthma Sulfa Antibiotics Hives High 07/06/2013 Trimethoprim Hives 05/24/2018 documented as of this encounter (statuses as of 07/22/2023) Medications Medication Sig Dispensed Refills Start Date End Date Status polyethylene glycol 3350 (MIRALAX) packet Take 1 Packet by mouth daily. 14 Each 0 9 Active Additional Information Patient taking differently:17 g OralDAILY PRN, Informant: Patient, Reported on 09/22/2022 saline (OCEAN) 0.65 % nasal spray Administer 1 [place] into nostril 2 times a day. And as needed for nasal congestion. 30 mL 12 9 Active Vit-Fe Mbk-LT-Uvvpx (ONE-A-DAY WOMENS ) 28-0.8 & 223 MG [...] MCG/INH Inhalation Aerosol Powder Breath Activated (umeclidinium [place]) Inhale by mouth 1 Puff in the [...] persistent asthma without complication 150 mg SC [id number] 09/11/2022 Acti ve Albuterol Sulfate (Proventil) (2.5 MG/3ML) 0.083% inhalation solution 2.5 mgIndications:Severe persistent asthma with (acute) exacerbation 2.5 mg NEBULIZER ONCE PRN 02/02/2023 Acti ve Albuterol Sulfate (Proventil) (2.5 MG/3ML) 0.083% inhalation solution 2.5 mgIndications:Severe persistent asthma with acute exacerbation 2.5 mg NEBULIZER PRN 01/27/2023 01/27/2024 Active documented as of this encounter (statuses as of 07/22/2023) Active Problems Problem Noted Date Diagnosed Date [...] of NOB Last Assessment & Plan: Continue FLATWORK SUPERVISOR famotidine documented as of this encounter (statuses as of 07/22/2023) Resolved Problems Problem Noted Date Diagnosed Date [...] getting steroids and breathing treatments. Continuing on FLATWORK SUPERVISOR inhalers and steroid 40mg daily. Pulmonary medicine [...] INFORMATION 09/28/2018 12/21/2018 Overview: Taking prometrium at [facility] Obesity in , antepartum 09/28/2018 07/12/2019 Overview: BMI: 31.92 kg/m at B Pt desires nutrition consult as this is her highest weight, feels it to be associated with prednisone use Early 1hr gtt normal Hypokalemia 01/13/2017 01/13/2017 Overview: [age] y/o while in hospital with continuous neb, went in to arrhythmia Single liveborn, born in [facility], delivered by section 10/03/2016 01/07/2017 INFORMATION 09/09/2016 01/07/2017 Overview: Pt needs to see arlin Peña section in [place] on 10/01/16. RSV (respiratory syncytial virus infection) [...] as of this encounter (statuses as of 07/22/2023) Immunizations Name Administration Dates Next Due H1N1 [...] have money to get more. Sometimes true [place] Depression Scale Answer Date Recorded [place] Depression Scale Total 8 07/07/2023 The thought [...] active auth) Please send TE to p [phone] on what medication needs auth. * Telephone Encounter - Judy Del Toro OSA - 07/16/2023 7:11 AM EST Images from the original note were not included. AUTH REQUEST FOR TEZSPIRE DENIED: PREFERRED DRUGS: FASENREA OR DUPIXENT. * Telephone Encounter - Judy Del Toro OSA - 07/15/2023 10:21 AM EST Requested auth. Contact plan to follow up on [email or web address] * Telephone Encounter - Alejandra Robertson MED ASSIST - 07/15/2023 9:[address] Nunez states that "Juliette is fine" - pt preference for location for injection, however she is physically closer to the [facility] office which she may prefer. * Telephone Encounter - Susanna Magana CPhT - 07/10/2023 11:34 AM EST Madi, We see the PA for Nucala has been denied. Will an appeal be done? We are going to profile the script at this time, if the PA gets approved please let us know so we can rerun the script. Thank you Susanna Magana [facility] Hydro Station Operator [facility] 07/10/2023,11:35 AM * Telephone Encounter - Judy Del Toro HUGO - 06/29/2023 11:33 AM EST Images from the original note were not included. AUTH REQUEST DENIED: * Telephone Encounter - Judy Del Toro HUGO - 06/29/2023 10:33 AM EST Requested auth. Contact plan to follow up on [id number] * Telephone Encounter - Susanna Magana CPhT - 06/25/2023 1:09 PM EST Madi, Just checking to see if there has been any progress on this PA yet. Thank you Susanna Magana [facility] Hydro Station Operator [facility] 06/25/2023,1:10 PM. * Telephone Encounter - Faviola Mora CPhT - 06/16/2023 2:10 PM EST Checking on the status of the pa for the Nucala, please advise Thank you Faviola Mora Hydro Station Operator III [facility] Rx 06/16/2023,2:10 PM * Telephone Encounter - Hue Houser, [facility] - 06/04/2023 2:52 PM EDT Please see Pulmonary pre-cert request for Mepolizumab (Nucala) 100mg/ml Pen - 100mg every 4 weeks .- route referral message with approval, denial or questions back to Pulmonary Pharmacist Pool [id number]. Current Asthma Medications: Controller(s): - Symbicort 160-4.5 [...] 5 5 Each Marilyn Gallegos MD [facility]/pharmacy #[id number]... PREDNISONE 10MG TAB(S) 08/15/2022 11 26 [...] 0.44 ! Birch IgE <0.10 kUa/L <0.10 [place] Maple IgE <0.10 kUa/L <0.10 [place] IgE <0.10 kUa/L <0.10 Elm IgE <0.10 kUa/L <0.10 [place] IgE <0.10 kUa/L <0.10 Pecan [place] IgE <0.10 kUa/L <0.10 [place] Tree IgE <0.10 kUa/L <0.10 [place] IgE <0.10 kUa/L <0.10 Cocklebur IgE <0.10 kUa/L <0.10 Common Ragweed IgE <0.10 kUa/L 0.33 Thai Plantain IgE <0.10 kUa/L <0.10 Cook's Quarter IgE <0.10 kUa/L <0.10 Mugwort IgE <0.10 kUa/L <0.10 Pigweed IgE <0.10 kUa/L <0.10 Sheep [place] IgE <0.10 kUa/L <0.10 !: Data is [...] - Severe persistent asthma, uncomplicated J45.50 Location: [facility]: [facility] Referral to pharmacist for: Clinical co-management. Medication(s) Tried/Failed/Contraindicated: Xolair See corresponding visit note(s) for additional supporting clinical information. Office Information: Prescriber: Dr. Nunez documented in this encounter Plan of Treatment Upcoming Encounters Date Type Department Care Team (Late st Contact Info) Description 07/30/2023 8:00 AM EST Imaging Maternal Medicine Imaging, [facility] 132 [facility] [place] [address] 07/30/2023 8:00 AM EST Office Visit Hide And Skin Classer Obstetrics Maternal Medicine, [address] [place] [address] Suzy Funk, DO [address] [facility] [place] [address] 08/07/2023 9:00 AM EST Laboratory Laboratory, [facility] 132 [place] [address] VigilHong barnett [facility] 132 [place] [address] 08/07/2023 9:30 AM EST Office Visit Gynecology/Obstetrics [facility] [address] [place] [address] Zunilda Carmen CRNP [address] [place] [address] 09/28/2023 11:40 AM EST Office Visit Pulmonary Medicine, [facility] [address] [place] [address] Ruel Domínguez, [address] [place] [address] 09/29/2023 9:30 AM EST Office Visit Hide And Skin Classer Obstetrics Maternal Medicine, [place] [address] [place], [place] [phone] Suzy Funk, [address] [place] [address] 09/29/2023 9:30 AM EST Imaging Radiology [facility], [place] [address] [place] [address] Health Maintenance Due Date Last [...] this encounter Medical Devices Implanted Type Area Camp Assistant Device Identifier Shelf Expiration Date Model / Serial / Lot Suture Olivia Long - [id number] Implanted:Qty : 1 on 12/16/[address] MD at OR [facility] N/A: Esophagus [employer] 07/15/2024 [facility]-C01-21 3-L / / [id number] documented as of this encounter Advance Directives [...] the patient have Health Care Power of Dental Floss Packer? No Care Teams Computed Tomography Technician Relationship Specialty Start Date End Date Lynette Jorge DO [address] [address] PCP - General Family Medicine 06/25/16 documented as of this encounter
--- OUTSIDE RECORDS SUMMARY | 2023-07-26 18:21 | External Medical Summary | Summary of Care ---
Author Name Unknown Organization [facility] Address [address] [place] [address] Phone [phone] Care Team Providers Care Operating Room Assistant Name Role Phone Lynette Jorge DO Primary Care Provider [phone] Reason for Visit * Reason Comments Outpatient Testing Encounter Details Date Type Department Care Team (Late st Contact Info) Description 07/20/2023 9:10 AM EST Laboratory Laboratory, [facility] [address] [place] [address] [facility] [address] [place] [address] High-risk in first trimester Allergies Active Allergy Reactions Criticality Noted Date [...] (OCEAN) 0.65 % nasal spray Administer 1 [place] into nostril 2 times a day. And as needed for nasal congestion. 30 mL 12 11/10/2018 Active Vit-Fe Bey-AH-Norqw (ONE-A-DAY WOMENS ) 28-0.8 & 223 MG [...] MCG/INH Inhalation Aerosol Powder Breath Activated (umeclidinium [place]) Inhale by mouth 1 Puff in the [...] persistent asthma without complication 150 mg SC [id number] 09/11/2022 Acti ve Albuterol Sulfate (Proventil) (2.5 [...] Asthma, severe persistent 07/22/2013 Overview: [place] [facility] [place] on 10/08/18-10/11/18. Has been admitted monthly since last January. Takes deltasone 10mg daily GERD (gastroesophageal reflux disease) 3 Overview: Nissin fundoplication x2. Not on meds for GERD at time of NOB Last Assessment & Plan: Continue ROLLER OPERATOR famotidine Estimated Date of Delivery Comme nts [...] getting steroids and breathing treatments. Continuing on ROLLER OPERATOR inhalers and steroid 40mg daily. Pulmonary medicine [...] INFORMATION 09/28/2018 12/21/2018 Overview: Taking prometrium at [facility] Obesity in , antepartum 09/28/2018 07/12/2019 Overview: BMI: 31.92 kg/m at NOB Pt desires nutrition consult as this is her highest weight, feels it to be associated with prednisone use Early 1hr gtt normal Hypokalemia 01/13/2017 01/13/2017 Overview: 16/16 y/o while in hospital with continuous neb, went in to arrhythmia [facility] delivered by section 10/03/2016 01/07/2017 INFORMATION 09/09/2016 01/07/2017 Overview: Pt needs to see arlin Peña section in [place] on 10/01/16. RSV (respiratory syncytial virus infection) [...] current needs or questions 04/29/2019 Chelsey Dejesus, RN 04/29/2019 History of section complicating 04/15/2016 [...] have money to get more. Sometimes true [place] Depression Scale Answer Date Recorded [place] Depression Scale Total 8 07/07/2023 The thought [...] No 04/30/2019 documented as of this encounter Plan of Treatment Upcoming Encounters Date Type Department Care Team (Late st Contact Info) Description 07/27/2023 9:00 AM EST Nurse Only Pulmonary Medicine, [facility] [address] [facility] [place] [address] Gw, Nurse Pulmonary [address] [facility] [place] [address] 07/30/2023 8:00 AM EST Imaging Maternal Medicine Imaging, [facility] [address] [facility] [place] [phone] 07/30/2023 8:00 AM EST Office Visit Director Supplier Quality Obstetrics Maternal Medicine, [facility] [address] [facility] [place] [address] Suzy Funk, DO [address] [place] [address] 08/07/2023 9:00 AM EST Laboratory Laboratory, [facility] [address] [facility] [place] [phone] Hong [place] [address] [place] [address] 08/07/2023 9:30 AM EST Office Visit Gynecology/Obstetrics [facility] 132 [facility] [place] [address] Zunilda Carmen CRNP [address] [place] [address] 09/28/2023 11:40 AM EST Office Visit Pulmonary Medicine, [facility] [address] [place] [address] Ruel Domínguez, [address] [place] [address] 09/29/2023 9:30 AM EST Office Visit Director Supplier Quality Obstetrics Maternal Medicine, [place] [address] [place] [address] Suzy Funk, [address] [place] [address] 09/29/2023 9:30 AM EST Imaging Radiology [facility] [place] [address] [place], [place] [phone] Pending Results Name Type Priority Associated Diagnoses Date /Time QNATAL ADVANCED (QUEST) Lab Routine High-risk in first trimester 07/20/2023 9:36 AM EST Health Maintenance Due Date Last Done Comments [...] this encounter Medical Devices Implanted Type Area Machine Carton Marker Device Identifier Shelf Expiration Date Model / Serial / Lot Suture Jilch Long - [id number] Implanted:Qty : 1 on 12/16/[address] MD at OR [facility] N/A: Esophagus [employer] 07/15/2024 [facility]-C01-21 3-L / / [id number] documented as of this encounter Visit Diagnoses Diagnosis High-risk in first trimester documented in this encounter Advance Directives Latest [...] the patient have Health Care Power of Welfare Specialist? No Care Teams Operating Room Assistant Relationship Specialty Start Date End Date Lynette Jorge DO [address] [address] PCP - General Family Medicine 06/25/16 documented as of this encounter
--- OUTSIDE RECORDS SUMMARY | 2023-07-26 18:21 | External Medical Summary | Summary of Care ---
Author Name Unknown Organization [facility] Address [address] [place] [address] Phone [phone] Care Team Providers Care Chip Tester Name Role Phone Ania Lynette Alejandro GUPTA Primary Care Provider [phone] Reason for Visit * Reason Onset Date Comments Medication Pre-auth 07/09/2023 Encounter Details Date Type Department Care Team (Late st Contact Info) Description 07/09/2023 Telephone Pulmonary Medicine, [facility] [address] [place] [address] Mann Nunez MD [address] [place] [address] Medication Pre-auth Allergies Active Allergy Reactions Criticality Noted Date [...] (OCEAN) 0.65 % nasal spray Administer 1 Lizella into nostril 2 times a day. And as needed for nasal congestion. 30 mL 12 11/10/2018 Active Vit-Fe Mqa-LW-Fiiqp (ONE-A-DAY WOMENS ) 28-0.8 & 223 MG [...] MCG/INH Inhalation Aerosol Powder Breath Activated (umeclidinium [place]) Inhale by mouth 1 Puff in the [...] persistent asthma without complication 150 mg SC [id number] 09/11/2022 Acti ve Albuterol Sulfate (Proventil) (2.5 [...] Asthma, severe persistent 07/22/2013 Overview: Admitted to [facility] for acute exacerbation on 10/08/18-10/11/18. Has been admitted monthly since last January. Takes deltasone 10mg daily GERD (gastroesophageal reflux disease) 3 Overview: Nissin fundoplication x2. Not on meds for GERD at time of NOB Last Assessment & Plan: Continue HERBICIDE SERVICE SALES REPRESENTATIVE famotidine Estimated Date of Delivery Comme nts [...] getting steroids and breathing treatments. Continuing on HERBICIDE SERVICE SALES REPRESENTATIVE inhalers and steroid 40mg daily. Pulmonary medicine [...] INFORMATION 09/28/2018 12/21/2018 Overview: Taking prometrium at [facility] Obesity in , antepartum 09/28/2018 07/12/2019 Overview: BMI: 31.92 kg/m at NOB Pt desires nutrition consult as this is her highest weight, feels it to be associated with prednisone use Early 1hr gtt normal Hypokalemia 01/13/2017 01/13/2017 Overview: [age] y/o while in hospital with continuous neb, went in to arrhythmia Single liveborn, born in [facility], delivered by section 10/03/2016 01/07/2017 INFORMATION 09/09/2016 01/07/2017 Overview: Pt needs to see arlin Peña section in [place] on 10/01/16. RSV (respiratory syncytial virus infection) [...] have money to get more. Sometimes true Harvard Depression Scale Answer Date Recorded Harvard Depression Scale Total 8 07/07/2023 The thought [...] encounter Miscellaneous Notes * Telephone Encounter - Pema Lin LPN - 07/15/2023 1:18 PM EST Other message is requesting Tezspire * Telephone Encounter - Lisa Londono RN - 07/13/2023 10:53 AM EST Pt receives biologic at [facility]. Message sent to [facility] Pulmonary Nurse pool for assistance. * Telephone Encounter - Judy Del Toro OSA - 07/10/2023 6:38 AM EST Please fill out smart phrase and send back to p [id number] Also, is the patient definitely continuing Xolair? In previous TE it stated xolair was not working and medication was trying to be changed. Nucala was denied because Fasenra or Dupixent are preferred. PT HAS APT SCHEDULED FOR 07/27 FOR XOLAIR. * Telephone Encounter - Fiona Giraldo OSA - 07/09/2023 4:26 PM EST All injections go to p [id number]. Thank you, Fiona Giraldo Medication Interlocker II [facility] 07/09/2023,4:26 PM * Telephone Encounter - Pema Lin LPN - 07/09/2023 1:56 PM EST Pt's Xolair requires a PA documented in this encounter Plan of Treatment Upcoming Encounters Date Type Department Care Team (Late st Contact Info) Description 07/27/2023 9:00 AM EST Nurse Only Pulmonary Medicine, [facility] [address] [facility] [place] [address] Gw, Nurse Pulmonary [address] [facility] [place] [address] 07/30/2023 8:00 AM EST Imaging Maternal Medicine Imaging, [facility] [address] [facility] [place] [phone] 07/30/2023 8:00 AM EST Office Visit Service Order Taker Obstetrics Maternal Medicine, [facility] [address] [facility] [place] [address] Suzy Funk, DO [address] [place] [address] 08/07/2023 9:00 AM EST Laboratory Laboratory, [facility] [address] [facility] [place] [phone] VigilHong [facility] [address] [facility] [place] [address] 08/07/2023 9:30 AM EST Office Visit Gynecology/Obstetrics [facility] [address] [facility] [place] [address] Zunilda Carmen CRNP [address] [facility] [place] [address] 09/28/2023 11:40 AM EST Office Visit Pulmonary Medicine, [facility] [address] [place] [address] Ruel Domínguez, [address] [place] [address] 09/29/2023 9:30 AM EST Office Visit Service Order Taker Obstetrics Maternal Medicine, [place] [address], [place] [phone] Suzy Funk, [address] [place] [address] 09/29/2023 9:30 AM EST Imaging Radiology [facility], [place] [address] [place] [address] Health Maintenance Due Date Last [...] this encounter Medical Devices Implanted Type Area Financial Sales Representative Device Identifier Shelf Expiration Date Model / Serial / Lot Suture Cinch Long - [id number] Implanted:Qty : 1 on 12/16/[address] MD at OR [facility] N/A: Esophagus [employer] 07/15/2024 [facility]-C01-21 3-L / / [id number] documented as of this encounter Advance Directives [...] the patient have Health Care Power of Sales Agent Insurance? No Care Teams Chip Tester Relationship Specialty Start Date End Date Lynette Jorge DO [address] [place] [address] PCP - General Family Medicine 06/25/16 documented as of this encounter
--- OUTSIDE RECORDS SUMMARY | 2023-07-26 18:22 | External Medical Summary | Summary of Care ---
Author Name Unknown Organization [facility] Address [address] [place] [address] Phone [phone] Care Team Providers Care Helmet Hat Puncher Name Role Phone Ania Lynettejenny Allen DO Primary Care Provider [phone] Reason for Visit * Reason Onset Date Comments Precert Denied 06/02/2023 Nucala Encounter Details Date Type Department Care Team (Late st Contact Info) Description 06/02/2023 Telephone Pulmonary Medicine, [place] [address] [place] [address] Mann Nunez MD [address] [place] [address] Precert Denied (Nucala ) Allergies Active Allergy Reactions Criticality Noted Date [...] (OCEAN) 0.65 % nasal spray Administer 1 [place] into nostril 2 times a day. And as needed for nasal congestion. 30 mL 12 9 Active Vit-Fe Qcc-XO-Rqhke (ONE-A-DAY WOMENS ) 28-0.8 & 223 MG [...] MCG/INH Inhalation Aerosol Powder Breath Activated (umeclidinium [place]) Inhale by mouth 1 Puff in the [...] persistent asthma without complication 150 mg SC [id number] 09/11/2022 Acti ve Albuterol Sulfate (Proventil) (2.5 [...] of great vessels, had cardiac surgery as Obesity in , antepartum 07/07/2023 Overview: Class [...] Asthma, severe persistent 07/22/2013 Overview: Admitted to [facility] for acute exacerbation on 10/08/18-10/11/18. Has been admitted monthly since last January. Takes deltasone 10mg daily GERD (gastroesophageal reflux disease) 3 Overview: Nissin fundoplication x2. Not on meds for GERD at time of NOB Last Assessment & Plan: Continue TYPE BAR AND SEGMENT ASSEMBLER famotidine documented as of this encounter (statuses [...] getting steroids and breathing treatments. Continuing on TYPE BAR AND SEGMENT ASSEMBLER inhalers and steroid 40mg daily. Pulmonary medicine [...] INFORMATION 09/28/2018 12/21/2018 Overview: Taking prometrium at [facility] Obesity in , antepartum 09/28/2018 07/12/2019 Overview: BMI: 31.92 kg/m at B Pt desires nutrition consult as this is her highest weight, feels it to be associated with prednisone use Early 1hr gtt normal Hypokalemia 01/13/2017 01/13/2017 Overview: [age] y/o while in hospital with continuous neb, went in to arrhythmia Single liveborn, born in [facility], delivered by section 10/03/2016 01/07/2017 INFORMATION 09/09/2016 01/07/2017 Overview: Pt needs to see arlin Peña section in [place] on 10/01/16. RSV (respiratory syncytial virus infection) [...] any current needs or questions 05/09/2016 Chelsey Dejessu RN 05/09/16 Problem Action Taken Date entered [...] and when to call office 09/18/2016 Hue Rudea RN 09/18/2016 Problem Action Taken Date entered [...] have money to get more. Sometimes true Bybee Depression Scale Answer Date Recorded Bybee Depression Scale Total 8 07/07/2023 The thought [...] 9:[address] Nunez states that "Sgsaida is fine" - pt preference for location for injection, however she is physically closer to the [facility] which she may prefer. * Telephone Encounter - Susanna Magana CPhT - 07/10/2023 11:34 AM EST Madi, We see the PA for Nucala has been denied. Will an appeal be done? We are going to profile the script at this time, if the PA gets approved please let us know so we can rerun the script. Thank you Susanna Magana [facility] Valve And Regulator Repairer [facility] 07/10/2023,11:35 AM * Telephone Encounter - Judy Del Toro OSA - 06/29/2023 11:33 AM EST Images from the original note were not included. AUTH REQUEST DENIED: * Telephone Encounter - Judy Del Toro OSA - 06/29/2023 10:33 AM EST Requested auth. Contact plan to follow up on [id number] * Telephone Encounter - Susanna Magana CPhT - 06/25/2023 1:09 PM EST Madi, Just checking to see if there has been any progress on this PA yet. Thank you Susanna Magana [facility] Valve And Regulator Repairer [facility] 06/25/2023,1:10 PM. * Telephone Encounter - Faviola Mora CPhT - 06/16/2023 2:10 PM EST Checking on the status of the pa for the Nucala, please advise Thank you Faviola Mora Valve And Regulator Repairer III [facility] 06/16/2023,2:10 PM * Telephone Encounter - Hue Houser [facility] - 06/04/2023 2:52 PM EDT Please see Pulmonary pre-cert request for Mepolizumab (Nucala) 100mg/ml Pen - 100mg every 4 weeks .- route referral message with approval, denial or questions back to Pulmonary Pharmacist Wirtz [id number]. Current Asthma Medications: Controller(s): - Symbicort 160-4.5 [...] 5 5 Each Marilyn Gallegos MD E [facility]/pharmacy #[id number]... PREDNISONE 10MG TAB(S) 08/15/2022 11 26 [...] 0.44 ! Birch IgE <0.10 kUa/L <0.10 [place] Maple IgE <0.10 kUa/L <0.10 [place] IgE <0.10 kUa/L <0.10 Elm IgE <0.10 kUa/L <0.10 [place] IgE <0.10 kUa/L <0.10 Pecan [place] IgE <0.10 kUa/L <0.10 [place] Tree IgE <0.10 kUa/L <0.10 [place] IgE <0.10 kUa/L <0.10 Cocklebur IgE <0.10 kUa/L <0.10 Common Ragweed IgE <0.10 kUa/L 0.33 [place] Plantain IgE <0.10 kUa/L <0.10 Cook's Quarter IgE <0.10 kUa/L <0.10 Mugwort IgE <0.10 kUa/L <0.10 Pigweed IgE <0.10 kUa/L <0.10 Sheep [place] IgE <0.10 kUa/L <0.10 !: Data is [...] * Telephone Encounter - Alejandra Robertson [employer] - 06/02/2023 12:24 PM EDT Pulmonary Medicine [...] Severe persistent asthma, uncomplicated J45.50 Location: [facility]: Route pre-cert request to [facility]. Referral to pharmacist for: Clinical co-management. Medication(s) Tried/Failed/Contraindicated: Xolair See corresponding visit note(s) for additional supporting clinical information. Office Information: Prescriber: Dr. Nunez documented in this encounter Plan of Treatment Upcoming Encounters Date Type Department Care Team (Late st Contact Info) Description 07/27/2023 9:00 AM EST Nurse Only Pulmonary Medicine, [facility] [address] [facility] [place] [address] Gw, Nurse Pulmonary 132 [place] [address] 07/30/2023 8:00 AM EST Imaging Maternal Medicine Imaging, [address] [place] [phone] 07/30/2023 8:00 AM EST Office Visit Authorization Specialist Obstetrics Maternal Medicine, [facility] [address] [place] [address] Suzy Funk, [address] [place] [address] 08/07/2023 9:00 AM EST Laboratory Laboratory, [address] [place] [phone] [address] [place] [address] 08/07/2023 9:30 AM EST Office Visit Gynecology/Obstetrics [address] [place] [address] Zunilda Carmen CRNP [address] [place] [address] 09/28/2023 11:40 AM EST Office Visit Pulmonary Medicine, [facility] [address] [address] Ruel Domínguez, [address] [place] [address] 09/29/2023 9:30 AM EST Office Visit Authorization Specialist Obstetrics Maternal Medicine, [place] [address] [place] [address] Suzy Funk, [address] [place] [address] 09/29/2023 9:30 AM EST Imaging Radiology [facility], [place] [address] [place] [address] Health Maintenance Due Date Last Done Comments COVID-19 Vaccine (#1) 1996 Depression Screening 12/16/2019 12/15/2018 HPV/Co-Test 2021 Influenza Vaccine (FLU shot) (#1) 2023 09/23/2022, 05/09/2020, 04/18/2019, Additional history exists Cervical Cancer Screening 05/10/2024 Pap Smear 05/10/2024 05/10/2021, 0608/2017, 01/08/2018, Additional history exists DTaP,Tdap,and Td Vaccines [...] this encounter Medical Devices Implanted Type Area Career Services Coordinator Device Identifier Shelf Expiration Date Model / Serial / Lot Suture Cinch Long - [id number] Implanted:Qty : 1 on 12/16/[address] MD at OR [facility] N/A: Esophagus [employer] 07/15/2024 [facility]-C01-21 3-L / / [id number] documented as of this encounter Advance Directives [...] the patient have Health Care Power of Powerhouse Attendant? No Care Teams Helmet Hat Puncher Relationship Specialty Start Date End Date Lynette Jorge DO [address] [place] [address] PCP - General Family Medicine 06/25/16 documented as of this encounter
--- OUTSIDE RECORDS SUMMARY | 2023-07-26 18:22 | External Medical Summary | Summary of Care ---
Author Name Unknown Organization [facility] Address [address] [place] [address] Phone [phone] Care Team Providers Care Precision Honing Machine Operator Name Role Phone Ania Lynettejenny Allen DO Primary Care Provider [phone] Reason for Visit * Reason Onset Date Comments Precert Denied 06/02/2023 Nucala Encounter Details Date Type Department Care Team (Late st Contact Info) Description 06/02/2023 Telephone Pulmonary Medicine, [place] [address] [place] [address] Mann Nunez MD [address] [place] [address] Precert Denied (Nucala ) Allergies Active Allergy Reactions Criticality Noted Date Comments Bactrim Hives High 07/06/2013 Dust Cough High 07/06/2013 Sneezing, coughing, asthma Nickel Rash 03/19/2021 Other Allergy (See Comments) Itching,Wheezing Medium 07/06/2013 Grass- redness, itching, asthma Pollen Cough High 07/06/2013 Sneezing, cough, asthma Sulfa Antibiotics Hives High 07/06/2013 Trimethoprim Hives 05/24/2018 documented as of this encounter (statuses as of 07/10/2023) Medications Medication Sig Dispensed Refills Start Date End Date Status polyethylene glycol 3350 (MIRALAX) packet Take 1 Packet by mouth daily. 14 Each 0 9 Active Additional Information Patient taking differently:17 g OralDAILY PRN, Informant: Patient, Reported on 09/22/2022 saline (OCEAN) 0.65 % nasal spray Administer 1 [place] into nostril 2 times a day. And as needed for nasal congestion. 30 mL 12 9 Active Vit-Fe Zgj-NT-Tebjw (ONE-A-DAY WOMENS ) 28-0.8 & 223 MG [...] MCG/INH Inhalation Aerosol Powder Breath Activated (umeclidinium [place]) Inhale by mouth 1 Puff in the [...] persistent asthma without complication 150 mg SC [id number] 09/11/2022 Acti ve Albuterol Sulfate (Proventil) (2.5 MG/3ML) 0.083% inhalation solution 2.5 mgIndications:Severe persistent asthma with (acute) exacerbation 2.5 mg NEBULIZER ONCE PRN 02/02/2023 Acti ve Albuterol Sulfate (Proventil) (2.5 MG/3ML) 0.083% inhalation solution 2.5 mgIndications:Severe persistent asthma with acute exacerbation 2.5 mg NEBULIZER PRN 01/27/2023 01/27/2024 Active documented as of this encounter (statuses as of 07/10/2023) Active Problems Problem Noted Date Diagnosed Date [...] Asthma, severe persistent 07/22/2013 Overview: Admitted to [facility] for acute exacerbation on 10/08/18-10/11/18. Has been admitted monthly since last January. Takes deltasone 10mg daily GERD (gastroesophageal reflux disease) 3 Overview: Nissin fundoplication x2. Not on meds for GERD at time of NOB Last Assessment & Plan: Continue SECURITY SYSTEMS SPECIALIST famotidine documented as of this encounter (statuses as of 07/10/2023) Resolved Problems Problem Noted Date Diagnosed Date [...] getting steroids and breathing treatments. Continuing on SECURITY SYSTEMS SPECIALIST inhalers and steroid 40mg daily. Pulmonary medicine [...] INFORMATION 09/28/2018 12/21/2018 Overview: Taking prometrium at [facility] Obesity in , antepartum 09/28/2018 07/12/2019 Overview: BMI: 31.92 kg/m at B Pt desires nutrition consult as this is her highest weight, feels it to be associated with prednisone use Early 1hr gtt normal Hypokalemia 01/13/2017 01/13/2017 Overview: [age] y/o while in hospital with continuous neb, went in to arrhythmia Single liveborn, born in [facility], delivered by section 10/03/2016 01/07/2017 INFORMATION 09/09/2016 01/07/2017 Overview: Pt needs to see arlin Peña section in [place] on 10/01/16. RSV (respiratory syncytial virus infection) [...] as of this encounter (statuses as of 07/10/2023) Immunizations Name Administration Dates Next Due H1N1 [...] have money to get more. Sometimes true Orion Depression Scale Answer Date Recorded Orion Depression Scale Total 8 07/07/2023 The thought [...] encounter Miscellaneous Notes * Telephone Encounter - Susanna Magana CPhT - 07/10/2023 11:34 AM EST Helartur, We see the PA for Nucala has been denied. Will an appeal be done? We are going to profile the script at this time, if the PA gets approved please let us know so we can rerun the script. Thank you Susanna Magana [facility] Jewel Hole Gauger [facility] Specialty RX 07/10/2023,11:35 AM * Telephone Encounter - Judy Del Toro OSA - 06/29/2023 11:33 AM EST Images from the original note were not included. AUTH REQUEST DENIED: * Telephone Encounter - Judy Del Toro OSA - 06/29/2023 10:33 AM EST Requested auth. Contact plan to follow up on [id number] * Telephone Encounter - Susanna Magana CPhT - 06/25/2023 1:09 PM EST Madi, Just checking to see if there has been any progress on this PA yet. Thank you Susanna Magana [facility] Jewel Hole Gauger [facility] Specialty RX 06/25/2023,1:10 PM. * Telephone Encounter - Faviola Mora CPhT - 06/16/2023 2:10 PM EST Checking on the status of the pa for the Nucala, please advise Thank you Faviola Mora Jewel Hole Gauger [facility] 06/16/2023,2:10 PM * Telephone Encounter - Hue Houser [facility] - 06/04/2023 2:52 PM EDT Please see Pulmonary pre-cert request for Mepolizumab (Nucala) 100mg/ml Pen - 100mg every 4 weeks .- route referral message with approval, denial or questions back to Pulmonary Pharmacist [place] [id number]. Current Asthma Medications: Controller(s): - Symbicort 160-4.5 [...] 5 5 Each Marilyn Gallegos MD E [facility]/pharmacy #[id number]... PREDNISONE 10MG TAB(S) 08/15/2022 11 [...] 0.44 ! Birch IgE <0.10 kUa/L <0.10 [place] Maple IgE <0.10 kUa/L <0.10 [place] IgE <0.10 kUa/L <0.10 Elm IgE <0.10 kUa/L <0.10 [place] IgE <0.10 kUa/L <0.10 Pecan [place] IgE <0.10 kUa/L <0.10 [place] Tree IgE <0.10 kUa/L <0.10 [place] IgE <0.10 kUa/L <0.10 [place] IgE <0.10 kUa/L <0.10 Common Ragweed IgE <0.10 kUa/L 0.33 [place] Plantain IgE <0.10 kUa/L <0.10 Cook's Quarter IgE <0.10 kUa/L <0.10 Mugwort IgE <0.10 kUa/L <0.10 Pigweed IgE <0.10 kUa/L <0.10 Sheep [place] IgE <0.10 kUa/L <0.10 !: Data is [...] - Severe persistent asthma, uncomplicated J45.50 Location: [facility]: Route pre-cert request to [id number]. Referral to pharmacist for: Clinical co-management. Medication(s) Tried/Failed/Contraindicated: Xolair See corresponding visit note(s) for additional supporting clinical information. Office Information: Prescriber: Dr. Nunez documented in this encounter Plan of Treatment Upcoming Encounters Date Type Department Care Team (Late st Contact Info) Description 07/13/2023 12:30 PM EST Telemedicine Incinerator Plant Laborer Obstetrics Maternal Medicine, [place] [address] [place] [address] Catherine Atkins CRNP [address] [place] [address] 07/27/2023 9:00 AM EST Nurse Only Pulmonary Medicine, [facility] 132 [facility] [place] [address] Gw, Nurse Pulmonary 132 [facility] [place] [address] 07/30/2023 8:00 AM EST Imaging Maternal Medicine Imaging, [facility] 132 [place] [phone] 08/07/2023 9:00 AM EST Laboratory Laboratory, [address] [place] [phone] VigilHong [facility] [address] [place] [address] 08/07/2023 9:30 AM EST Office Visit Gynecology/Obstetrics [address] [address] Zunilda Carmen CRNP [address] [place] [address] 09/28/2023 11:40 AM EST Office Visit Pulmonary Medicine, [address] [address] Ruel Domínguez, DO [address], [place] [phone] 09/29/2023 9:30 AM EST Office Visit Incinerator Plant Laborer Obstetrics Maternal Medicine, [place] [address], [place] [phone] Suzy Funk, [address], [place] [id number] 09/29/2023 9:30 AM EST Imaging Radiology [facility], [place] [address], [place] [phone] Health Maintenance Due Date Last Done Comments [...] this encounter Medical Devices Implanted Type Area Product Development Carpenter Device Identifier Shelf Expiration Date Model / Serial / Lot Suture Cinch Long - [id number] Implanted:Qty : 1 on 12/16/[address] MD at OR [facility] N/A: Esophagus [employer] 07/15/2024 [facility]-C01-21 3-L / / [id number] documented as of this encounter Advance Directives [...] the patient have Health Care Power of Furniture Mechanic? No Care Teams Precision Honing Machine Operator Relationship Specialty Start Date End Date Lynette Jorge DO [address] [place] [address] PCP - General Family Medicine 06/25/16 documented as of this encounter
--- OUTSIDE RECORDS SUMMARY | 2023-07-26 18:22 | External Medical Summary | Summary of Care ---
Author Name Unknown Organization [facility] Address [address] [place] [address] Phone [phone] Care Team Providers Care Audio Visual Tech Name Role Phone Ania Lynette Alejandro GUPTA Primary Care Provider [phone] Reason for Visit * Reason Onset Date Comments Medication Pre-auth 07/09/2023 Encounter Details Date Type Department Care Team (Late st Contact Info) Description 07/09/2023 Telephone Pulmonary Medicine, [facility] [address] [place] [address] Mann Nunez MD [address] [place] [address] Medication Pre-auth Allergies Active Allergy [...] (OCEAN) 0.65 % nasal spray Administer 1 [place] into nostril 2 times a day. And as needed for nasal congestion. 30 mL 12 11/10/2018 Active Vit-Fe Sjy-OM-Ccogd (ONE-A-DAY WOMENS ) 28-0.8 & 223 MG [...] MCG/INH Inhalation Aerosol Powder Breath Activated (umeclidinium [place]) Inhale by mouth 1 Puff in the [...] persistent asthma without complication 150 mg SC [id number] 09/11/2022 Acti ve Albuterol Sulfate (Proventil) (2.5 [...] Asthma, severe persistent 07/22/2013 Overview: Admitted to [facility] for acute exacerbation on 10/08/18-10/11/18. Has been admitted monthly since last January. Takes deltasone 10mg daily GERD (gastroesophageal reflux disease) 3 Overview: Nissin fundoplication x2. Not on meds for GERD at time of NOB Last Assessment & Plan: Continue RECOVERER famotidine Estimated Date of Delivery Comme nts [...] getting steroids and breathing treatments. Continuing on RECOVERER inhalers and steroid 40mg daily. Pulmonary medicine [...] INFORMATION 09/28/2018 12/21/2018 Overview: Taking prometrium at [facility] Obesity in , antepartum 09/28/2018 07/12/2019 Overview: BMI: 31.92 kg/m at NOB Pt desires nutrition consult as this is her highest weight, feels it to be associated with prednisone use Early 1hr gtt normal Hypokalemia 01/13/2017 01/13/2017 Overview: [age] y/o while in hospital with continuous neb, went in to arrhythmia Single liveborn, born in [facility], delivered by section 10/03/2016 01/07/2017 INFORMATION 09/09/2016 01/07/2017 Overview: Pt needs to see arlin Peña section in [place] on 10/01/16. RSV (respiratory syncytial virus infection) [...] any current needs or questions 05/09/2016 Chelsey eDjesus RN 05/09/16 Problem Action Taken Date entered [...] Date resolved classes Pt attended 08/25/2016 Hue Reuda RN 08/25/2016 Problem Action Taken Date entered [...] have money to get more. Sometimes true [place] Depression Scale Answer Date Recorded [place] Depression Scale Total 8 07/07/2023 The thought [...] 10:53 AM EST Pt receives biologic at [facility]. Message sent to [facility] Pulmonary Nurse pool for assistance. * Telephone Encounter - Judy Del Toro OSA - 07/10/2023 6:38 AM EST Please fill out smart phrase and send back to p [phone] Also, is the patient definitely continuing Xolair? In previous TE it stated xolair was not working and medication was trying to be changed. Nucala was denied because Fasenra or Dupixent are preferred. PT HAS APT SCHEDULED FOR 07/27 FOR XOLAIR. * Telephone Encounter - Fiona Giraldo OSA - 07/09/2023 4:26 PM EST [place] [id number]. Thank you, Fiona Giraldo Medication Machine Applicator Cementer II [facility] 07/09/2023,4:26 PM * Telephone Encounter - Pema Lin LPN - 07/09/2023 1:56 PM EST Pt's Xolair requires a PA documented in this encounter Plan of Treatment Upcoming Encounters Date Type Department Care Team (Late st Contact Info) Description 07/27/2023 9:00 AM EST Nurse Only Pulmonary Medicine, [facility] [address] [facility] [place] [address] Gw, Nurse Pulmonary [address] [facility] [place] [address] 07/30/2023 8:00 AM EST Imaging Maternal Medicine Imaging, [facility] [address] [facility] [place] [id number] 07/30/2023 8:00 AM EST Office Visit Latex Caster Obstetrics Maternal Medicine, [facility] [address] [facility] [place] [address] Suzy Funk, DO [address] [place] [address] 08/07/2023 9:00 AM EST Laboratory Laboratory, [facility] [address] [facility] [place] [id number] [facility] [address] [facility] [place] [address] 08/07/2023 9:30 AM EST Office Visit Gynecology/Obstetrics [facility] [address] [place] [address] Zunilda Carmen CRNP [address] [facility] [address] 09/28/2023 11:40 AM EST Office Visit Pulmonary Medicine, [facility] [address] [place] [address] Ruel Domínguez, [address] [place] [address] 09/29/2023 9:30 AM EST Office Visit Latex Caster Obstetrics Maternal Medicine, [place] [address] [place], [place] [id number] Suzy Funk, [address] [place] [address] 09/29/2023 9:30 AM EST Imaging Radiology [facility] [place], [place] [address] [place] [address] Health Maintenance Due Date Last [...] this encounter Medical Devices Implanted Type Area Study Coordinator Device Identifier Shelf Expiration Date Model / Serial / Lot Suture Cinch Long - [id number] Implanted:Qty : 1 on 12/16/[address] MD at OR [facility] N/A: Esophagus [employer] 07/15/2024 [facility]-C01-21 3-L / / [id number] documented as of this encounter Advance Directives [...] patient have Health Care Power of Sales Training Coordinator? No Care Teams Audio Visual Tech Relationship Specialty Start Date End Date Lynette Jorge DO [address] [place] [address] PCP - General Family Medicine 06/25/16 documented as of this encounter
--- OUTSIDE RECORDS SUMMARY | 2023-07-26 18:22 | External Medical Summary | Summary of Care ---
Author Name Unknown Organization [facility] Address [address] [place] [address] Phone [phone] Care Team Providers Care Photo Tube Assembler Name Role Phone Ania Lynette Alejandro GUPTA Primary Care Provider [phone] Reason for Visit * Reason Onset Date Comments Medication Pre-auth 07/09/2023 Encounter Details Date Type Department Care Team (Late st Contact Info) Description 07/09/2023 Telephone Pulmonary Medicine, [facility] [address] [place] [address] Mann Nunez MD [address] [place] [address] Medication Pre-auth Allergies Active Allergy Reactions Criticality Noted Date Comments Bactrim Hives High 07/06/2013 Dust Cough High 07/06/2013 Sneezing, coughing, asthma Nickel Rash 03/19/2021 Other Allergy (See Comments) Itching,Wheezing Medium 07/06/2013 Grass- redness, itching, asthma Pollen Cough High 07/06/2013 Sneezing, cough, asthma Sulfa Antibiotics Hives High 07/06/2013 Trimethoprim Hives 05/24/2018 documented as of this encounter (statuses as of 07/13/2023) Medications Medication Sig Dispensed Refills Start Date End Date Status polyethylene glycol 3350 (MIRALAX) packet Take 1 Packet by mouth daily. 14 Each 0 10/12/2018 Active Additional Information Patient taking differently:17 g OralDAILY PRN, Informant: Patient, Reported on 09/22/2022 saline (OCEAN) 0.65 % nasal spray Administer 1 [place] into nostril 2 times a day. And as needed for nasal congestion. 30 mL 12 11/10/2018 Active Vit-Fe Eam-VQ-Pknjr (ONE-A-DAY WOMENS ) 28-0.8 & 223 MG [...] MCG/INH Inhalation Aerosol Powder Breath Activated (umeclidinium [place]) Inhale by mouth 1 Puff in the [...] persistent asthma without complication 150 mg SC [id number] 09/11/2022 Acti ve Albuterol Sulfate (Proventil) (2.5 MG/3ML) 0.083% inhalation solution 2.5 mgIndications:Severe persistent asthma with (acute) exacerbation 2.5 mg NEBULIZER ONCE PRN 02/02/2023 Acti ve Albuterol Sulfate (Proventil) (2.5 MG/3ML) 0.083% inhalation solution 2.5 mgIndications:Severe persistent asthma with acute exacerbation 2.5 mg NEBULIZER PRN 01/27/2023 01/27/2024 Active documented as of this encounter (statuses as of 07/13/2023) Active Problems Problem Noted Date Diagnosed Date [...] Asthma, severe persistent 07/22/2013 Overview: Admitted to [facility] for acute exacerbation on 10/08/18-10/11/18. Has been admitted monthly since last January. Takes deltasone 10mg daily GERD (gastroesophageal reflux disease) 3 Overview: Nissin fundoplication x2. Not on meds for GERD at time of NOB Last Assessment & Plan: Continue BANKING PARALEGAL famotidine Estimated Date of Delivery Comme nts Yes 02/13/2024 Based on Ultraso und documented as of this encounter (statuses as of 07/13/2023) Resolved Problems Problem Noted Date Diagnosed Date [...] getting steroids and breathing treatments. Continuing on BANKING PARALEGAL inhalers and steroid 40mg daily. Pulmonary medicine [...] INFORMATION 09/28/2018 12/21/2018 Overview: Taking prometrium at [facility] Obesity in , antepartum 09/28/2018 07/12/2019 Overview: BMI: 31.92 kg/m at NOB Pt desires nutrition consult as this is her highest weight, feels it to be associated with prednisone use Early 1hr gtt normal Hypokalemia 01/13/2017 01/13/2017 Overview: [age] y/o while in hospital with continuous neb, went in to arrhythmia Single liveborn, [facility], delivered by section 10/03/2016 01/07/2017 INFORMATION 09/09/2016 01/07/2017 Overview: Pt needs to see arlin Peña section in [place] on 10/01/16. RSV (respiratory syncytial virus infection) [...] any current needs or questions 04/29/2019 Chelsey Deejsus RN 04/29/2019 History of section complicating 04/15/2016 [...] as of this encounter (statuses as of 07/13/2023) Immunizations Name Administration Dates Next Due H1N1 [...] have money to get more. Sometimes true [place] Depression Scale Answer Date Recorded [place] Depression Scale Total 8 07/07/2023 The thought [...] encounter Miscellaneous Notes * Telephone Encounter - Lisa Londono RN - 07/13/2023 10:53 AM EST Pt receives biologic at [facility]. Message sent to [facility] Pulmonary Nurse [place] for assistance. * Telephone Encounter - Judy Del Toro OSA - 07/10/2023 6:38 AM EST Please fill out smart phrase and send back to p [phone] Also, is the patient definitely continuing Xolair? In previous TE it stated xolair was not working and medication was trying to be changed. Nucala was denied because Fasenra or Dupixent are preferred. PT HAS APT SCHEDULED FOR 07/27 FOR XOLAIR. * Telephone Encounter - Fiona Giraldo OSA - 07/09/2023 4:26 PM EST [place] [id number]. Thank you, Fiona Giraldo Medication Bridge Design Engineer II [facility] 07/09/2023,4:26 PM * Telephone Encounter - Pema Lin LPN - 07/09/2023 1:56 PM EST Pt's Xolair requires a PA documented in this encounter Plan of Treatment Upcoming Encounters Date Type Department Care Team (Late st Contact Info) Description 07/27/2023 9:00 AM EST Nurse Only Pulmonary Medicine, [facility] [address] [facility] [place] [address] Gw, Nurse Pulmonary [address] [facility] [place] [address] 07/30/2023 8:00 AM EST Imaging Maternal Medicine Imaging, [facility] [address] [facility] [place] [phone] 08/07/2023 9:00 AM EST Laboratory Laboratory, [facility] [address] [facility] [place] [address] [facility] [address] [facility] [place] [address] 08/07/2023 9:30 AM EST Office Visit Gynecology/Obstetrics [facility] [address] [facility] [place] [address] Zunilda Carmen CRNP [address] [facility] [place] [address] 09/28/2023 11:40 AM EST Office Visit Pulmonary Medicine, [facility] [address] [facility] [place] [address] Ruel Domínguez, DO [address] [facility] [address] 09/29/2023 9:30 AM EST Office Visit Forest Technology Professor Obstetrics Maternal Medicine, [place] [address] [place] [address] Suzy Funk, [address] [place] [address] 09/29/2023 9:30 AM EST Imaging Radiology [facility], [place] [address], [place] [id number] Health Maintenance Due Date Last Done Comments [...] this encounter Medical Devices Implanted Type Area Chute Tapper Device Identifier Shelf Expiration Date Model / Serial / Lot Suture Cinch Long - [id number] Implanted:Qty : 1 on 12/16/[address] MD at OR [facility] N/A: Esophagus [employer] 07/15/2024 [facility]-C01-21 3-L / / [id number] documented as of this encounter Advance Directives [...] the patient have Health Care Power of Sign Painter Apprentice? No Care Teams Photo Tube Assembler Relationship Specialty Start Date End Date Lynette Jorge DO [address] [place] [address] PCP - General Family Medicine 06/25/16 documented as of this encounter
--- OUTSIDE RECORDS SUMMARY | 2023-07-26 18:22 | External Medical Summary | Summary of Care ---
Author Name Unknown Organization [facility] Address [address] [place] [address] Phone [phone] Care Team Providers Care Driver License Agent Name Role Phone Lynette Jorge DO Primary Care Provider [phone] Reason for Visit * Reason Comments NEW PATIENT * Evaluate & Treat - Unlimited Visits (Within 10 days (routine)) - Pending Review Specialty Diagnoses / Procedures Referred By Dena dueñas Referred To Contact Neurology Diagnoses Neurologic disorder Jessica Omer CRNP [address] [place] [address] Referral ID Status Reason Start Date Expiration Date Visits Requested Visits Authorized [id number] Pending Review Specialty Services Required [phone] Encounter Details Date Type Department Care Team (Late st Contact Info) Description 07/09/2023 9:00 AM EST Office Visit Neu[facility] [address] [facility] [place] [address] Yen Jordan MD [address] [facility] [place] [address] TITLE [employer] demyelination (HCC)*; Increased intracranial pressure; Syncope, unspecified syncope type Allergies Active Allergy Reactions Criticality Noted Date Comments Bactrim Hives High 07/06/2013 Dust Cough High 07/06/2013 Sneezing, coughing, asthma Nickel Rash 03/19/2021 Other Allergy (See Comments) Itching,Wheezing Medium 07/06/2013 Grass- redness, itching, asthma Pollen Cough High 07/06/2013 Sneezing, cough, asthma Sulfa Antibiotics Hives High 07/06/2013 Trimethoprim Hives 05/24/2018 documented as of this encounter (statuses as of 07/09/2023) Medications Medication Sig Dispensed Refills Start Date End Date Status polyethylene glycol 3350 (MIRALAX) packet Take 1 Packet by mouth daily. 14 Each 0 10/12/2018 Active Additional Information Patient taking differently:17 g OralDAILY PRN, Informant: Patient, Reported on 09/22/2022 saline (OCEAN) 0.65 % nasal spray Administer 1 [place] into nostril 2 times a day. And as needed for nasal congestion. 30 mL 12 11/10/2018 Active Vit-Fe Zyv-TD-Oujfk (ONE-A-DAY WOMENS ) 28-0.8 & 223 MG [...] MCG/INH Inhalation Aerosol Powder Breath Activated (umeclidinium [place]aw[place]) Inhale by mouth 1 Puff in the [...] persistent asthma without complication 150 mg SC [id number] 09/11/2022 Acti ve Albuterol Sulfate (Proventil) (2.5 MG/3ML) 0.083% inhalation solution 2.5 mgIndications:Severe persistent asthma with (acute) exacerbation 2.5 mg NEBULIZER ONCE PRN 02/02/2023 Acti ve Albuterol Sulfate (Proventil) (2.5 MG/3ML) 0.083% inhalation solution 2.5 mgIndications:Severe persistent asthma with acute exacerbation 2.5 mg NEBULIZER PRN 01/27/2023 01/27/2024 Active documented as of this encounter (statuses as of 07/09/2023) Active Problems Problem Noted Date Diagnosed Date [...] Asthma, severe persistent 07/22/2013 Overview: Admitted to [facility] for acute exacerbation on 10/08/18-10/11/18. Has been admitted monthly since last January. Takes deltasone 10mg daily GERD (gastroesophageal reflux disease) 3 Overview: Nissin fundoplication x2. Not on meds for GERD at time of NOB Last Assessment & Plan: Continue [employer] OF EDUCATION [employer] TRAINING famotidine Estimated Date of Delivery Comme nts Yes 02/13/2024 Based on Ultraso und documented as of this encounter (statuses as of 07/09/2023) Resolved Problems Problem Noted Date Diagnosed Date [...] getting steroids and breathing treatments. Continuing on [employer]UCATION [employer] TRA[employer]ING inhalers and steroid 40mg daily. Pulmonary medicine [...] INFORMATION 09/28/2018 12/21/2018 Overview: Taking prometrium at NOB Obesity in , antepartum 09/28/2018 07/12/2019 Overview: [...] needs to see arlin Peña section in [place] on 10/01/16. RSV (respiratory syncytial virus infection) [...] First trimester screening 10/26/2014 , normal first 09/07/2014 09/0 01/2016 Overview: MFM referral placed for FTS-negative Offer MSAFP after 15 weeks-negative Vocal cord dysfunction 08/08/201306/08 documented as of this encounter (statuses as of 07/09/2023) Immunizations Name Administration Dates Next Due H1N1 [...] have money to get more. Sometimes true Carpio Depression Scale Answer Date Recorded Carpio Depression Scale Total 8 07/07/2023 The thought [...] on file documented as of this encounter Last Filed Vital Signs Vital Sign Reading Time Taken Comments Blood Pressure 114/62 07/09/2023 8:55 AM EST Pulse 68 07/09/2023 8:55 AM EST Temperature 36.9 C (98.5 F) 07/09/2023 8:55 AM ES T Respiratory Rate 16 07/09/2023 8:55 AM EST Oxygen Saturation 99% 07/09/2023 8:55 AM EST Inhaled Oxygen Concentration - - Weight 82.1 kg (181 lb) 07/09/2023 8:55 AM EST Height - - Body Mass Index 30.12 07/07/2023 9:05 AM EST documented in this encounter Functional Status Functional Status Response [...] No 04/30/2019 documented as of this encounter Progress Notes * Yen Jordan MD - 07/09/2023 9:25 AM EST HISTORY AND PHYSICAL EXAMINATION - Neurology [address] [address] NAME: Marianne Valenzuela Date of : 1990 Date of Visit: 07/09/23 Chief Complaint: Chief Complaint Patient presents with NEW PATIENT HPI: Marianne Valenzuela is a 33 year old female presenting with Multiple neurologic problems. One is a history of ICH. She presented in late 2018 to the emergency room and had a spinal tap. Sherelates that she had an opening pressure of 410 mm. The headaches were greatly relieved by that. She had a 2nd spinal tap at that time as well. She had been seeing an cold rolling coordinator and Dr. Thakur who originally managed this with Diamox. Most recently she was on topiramate for this but this was stopped due to her . By her report the ICH has resolved. She does not snore. A 2nd neurologic disorder is a history of demyelination. This also developed (or perhaps was discovered) in 2019. She had a syncopal episode (see below) which resulted in a CT of the head which demonstrated demyelination. She had an MRI of the brain and spinal tap for this. Results are not available to me at the time of this dictation. She reports she is clumsy, but has had no significant neurologic dysfunction. At time she feels as if she is bouncing A 3rd potential neurologic disorders that of syncope. She had a last spell in June 2022. There is no accompanying palpitations diaphoresis or nausea with them. Her 1st spell in 2019 was witnessed. No passive by reported a convulsion. There were several minutes of post syncopal confusion. The patient has had an episode of acute visual loss while sitting up several weeks ago. HOME MEDICATIONS : Current Outpatient Medications Medication Sig Dispense Refill polyethylene glycol 3350 (MIRALAX) packet Take 1 Packet by mouth daily. (Patient taking differently: Take 1 Packet by mouth daily as needed.) 14 Each 0 saline (OCEAN) 0.65 % nasal spray Administer 1 [place] into nostril 2 times a day. And as needed for nasal congestion. 30 mL 12 Vit-Fe Vwx-ZR-Zqivk (ONE-A-DAY WOMENS ) 28-0.8 & 223 MG MISC Take 1 Tab by mouth daily. Fluticasone Propionate 50 MCG/ACT Nasal Suspension (Flonase) Administer 2 Sprays into each nostril daily. 18.2 mL 11 oxygen IN GAS Use as directed. 2 lpm as needed Loratadine 10 MG Oral Tablet (Claritin) 1 Tablet. Incruse Ellipta 62.5 MCG/INH Inhalation Aerosol Powder Breath Activated (umeclidinium Annawan) Inhale by mouth 1 Puff in the morning. 30 Each 4 Omalizumab 150 MG Subcutaneous Solution Reconstituted (Xolair) Inject 300 mg under the skin every 4weeks. 2.4 mL 11 guaiFENesin ER 600 MG Oral Tablet Extended Release 12 Hour Take 1 Tablet by mouth 2 times a day as needed for Congestion. Take with plenty of water. Do not cut, crush or chew 40 Tablet 2 Albuterol Sulfate (2.5 MG/3ML) 0.083% Inhalation Nebulization Solution (Proventil) Inhale 1 Vial via nebulizer every 4 hours as needed for Wheezing or Shortness of Breath. 528 mL 2 Budesonide-Formoterol Fumarate 160-4.5 MCG/ACT Inhalation Aerosol (Symbicort) Inhale 2 Puffs by mouth in the morning and 2 Puffs before bedtime. 30.6 g 2 Albuterol Sulfate HFA 108 (90 Base) MCG/ACT Inhalation Aerosol Solution INHALE 2 PUFFS EVERY 4 HOURS NEEDED for cough, wheeze, or SOB 18 g 2 EpiPen 2-Renan 0.3 MG/0.3ML Injection Solution Auto-injector For a severe reaction: Inject in outer thigh following instructions on package and go to the Emergency room. 2 Each 3 predniSONE 5 MG Oral Tablet (Deltasone) Take 1 Tablet by mouth in the morning. every morning with food, as instructed.. 35 Tablet 5 Nucala 100 MG/ML Subcutaneous Solution Auto-injector (Mepolizumab) Inject 1 mL under the skin every4 weeks. 1 mL 12 Progesterone 200 MG Oral Capsule (Prometrium) Current Facility-Administered Medications Medication Dose Route Frequency Provider Last Rate Last Admin Omalizumab (Xolair) inj 150 mg 150 mg Subcutaneous Q2 Weeks Mari Rodriguez CRNP 150 mg at 06/26/23 1015 Albuterol Sulfate (Proventil) (2.5 MG/3ML) 0.083% inhalation solution 2.5 mg 2.5 mg Nebulizer Once PRN Mann Nunez MD Albuterol Sulfate (Proventil) (2.5 MG/3ML) 0.083% inhalation solution 2.5 mg 2.5 mg Nebulizer PRN Mann Nunez MD 2.5 mg at 01/27/23 1215 Review of patient's allergies indicates: Allergen Reactions Bactrim Hives Dust Cough Sneezing, coughing, asthma Pollen Cough Sneezing, cough, asthma Sulfa Antibiotics Hives Other Allergy (See Comments) Itching and Wheezing Grass- redness, itching, asthma Nickel Rash Trimethoprim Hives Past Medical History: Diagnosis Date Allergic rhinitis 08/08/2013 Asthma 1989 Symptoms at ; diagnosed at 4mths. Asthma, moderate persistent 07/22/2013 Admitted at [facility] 08/06/16-08/25/16 during third trimester of with +RSV exacerbating asthma,using O2 via nasal cannula at night to keep O2 sats >95%. Planning repeat growth sono with MFM @36wks Demyelinating disease (HCC) 06/08/201705/26 seeing neuro, abnormal MRI however MS workup neg GERD (gastroesophageal reflux disease) 1989 Diagnosed at 3mths of age. History of blood transfusion Multiple with GI problems & SX Hypokalemia 17 y/o while in hospital with continuous neb, went in to arrhythmia Idiopathic intracranial hypertension 06/08/2017 denies any recent headaches 10/2018 Intestinal adhesions 2009 SX done to remove adhesions & small part of liver removed. Intracranial hypertension Iron deficiency anemia 08/09/2016 Migraine headache Ovarian cyst 2018 Previous section 04/15/2016 Delivered in [place] at 32 weeks. Records received, confirming LTCS. Report sent to scanning. Vocal cord dysfunction age 16 Vocal cords inflamed from stomach acid; SX resolved issues. Past Surgical History: Procedure Laterality Date DELIVERY 2014 DELIVERY ONLY W/ N/A 10/01/2016 DELIVERY AND CARE performed by Matt Hanson Jr., MD at OB [facility] DILATION AND CURETTAGE (D&C) 2011 menorrghia from OCP EGD, FLEXIBLE, DIAGNOSTIC 06/20/2021 bienvenido fundoplication found/esophageal ulcer/TIF not performed/repeat 2 months/ESOPHAGOGASTRODUODENOSCOPY (EGD), FLEXIBLE, TRANSORAL, DIAGNOSTIC performed by Ave Temple MD at OR 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 EGD, FLEXIBLE, DIAGNOSTIC 04/24/2021 normal / [facility] ESOPHAGOGASTRIC FUNDOPLASTY 1991; 2009 Bienvenido x 2 HYSTEROSCOPY W/BIOPSY AND/OR POLYPECTOMY W/WO D&C N/A 06/06/2021 HYSTEROSCOPY WITH BIOPSY AND/OR POLYPECTOMY WITH OR WITHOUT D&C performed by Deisy Chun MD at [facility] Family History Problem Relation Age of Onset Lupus Mother Asthma Father in childhood Other (PCOS) Sister Lymphoma Brother HIV; Lymphatic cancer Liver disease Brother No Past Hx Grandmother (Maternal) Hypertension Grandfather (Maternal) Asthma Grandmother (Paternal) childhood No Past Hx Grandfather (Paternal) Autism Son No Past Hx Son Other (spina bifida) Aunt (Unspecified) maternal aunt Asthma Uncle (Unspecified) 3 paternal Social History Socioeconomic History Marital status: Spouse name: Greg Number of children: 3 Years of education: 15 Highest education level: Not on file Occupational History 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 Vaping Use Vaping Use: Never used Substance and Sexual Activity Alcohol use: Yes Comment: rare Drug use: No Comment: Denies never ever using illicit drugs. Sexual activity: Yes Partners: Male Other Topics Concern Not on file Social History Narrative No pets Mold levels elevated in the home. Mold testing showed 600. Central air conditioning. Social Determinants of Health Financial Resource Strain: Not on file Food Insecurity: Food Insecurity Present (07/07/2023) Hunger Vital Sign Worried About Running Out of Food in the Last Year: Never true Ran Out of Food in the Last Year: Sometimes true Transportation Needs: Not on file Physical Activity: Not on file Stress: Not on file Social Connections: Not on file Intimate Partner Violence: Not on file Housing Stability: Not on file ROS: Review of Systems Constitutional: Positive for fatigue and unexpected weight change. HENT: Positive for tinnitus. Eyes: Negative. Respiratory: Negative. Cardiovascular: Negative. Gastrointestinal: Negative. Endocrine: Negative. Genitourinary: Negative. Musculoskeletal: Negative. Allergic/Immunologic: Negative. Neurological: Negative. Hematological: Negative. Psychiatric/Behavioral: Negative. All other systems reviewed and are negative. Inc appetite from prednisone; PHYSICAL EXAMINATION: Vital Signs: BP 114/62 | Pulse 68 | Temp 36.9 C (98.5 F) (Tympanic) | Resp 16 | Wt 82.1 kg (181 lb) | LMP 05/04/2023 Comment: was on BCP did not take on time missed alot of days | SpO2 99% | BMI 30.12 kg/m | BSA 1.94 m EXAM: Constitutional: appearance normally developed, with no deformities Heart sounds are normal Examination of the peripheral vascular system by observation does not reveal varicosity or edema. Palpation reveals normal pulses and temperature Carotid arteries reveal no bruit. NEUROLOGIC EXAMINATION: Appearance: no acute distress Opthalmoscopic: disc flat, normal fundus The patient has obviously intact higher integrative functioning to orientation, language, fund of knowledge, attention to the examiner, and memory Speech: no dysarthria Cranial Nerves: CN 2 - no visual defect on confrontation. CN 3, 4, 6 - extra-ocular movements intact and no nystagmus; with round pupils appropriately reactive to light and accomodation CN 5 - facial sensation intact CN 7 - no facial asymmetry CN 8 - intact hearing CN 9, 10 - palate symmetric CN 11 - good shoulder shrug CN 12 - tongue midline Gait and station: normal Coordination: normal finger to nose testing and rapid alternating movements of the lower extremities. No tremor is seen. Sensory: intact to light touch and pain Muscle Tone: normal Muscle exam:Nl in all extremities without pronator drift. Reflexes: Normal with downgoing toes IMPRESSION / PLAN: This patient has been seeing Dr. Thakur for all of the above and is quite pleasedwith his services. I believe this appointment was scheduled in error and should have been scheduledwith him. I have fully endorse this patient to continue with him which she will do. She has a appointment in August 2023 and I have asked her to have a copy of his office no sent to me so I do not have any strings hanging out. It would appear that the the ICP has resolved. I am not sure what to make out of the positional blindness since this is frequently seen in rather severe cases. Once again this is left to Dr. Jeanpertlaura. This patient may have radiographic evidence of a demyelinating disorder but certainly does not examined with any brain or spinal cord dysfunction. In all likelihood the syncope is not neurologic in origin in his left to the primary care doctors to follow this if need be. Thank you very much for the opportunity of seeing this patient. Sincerely Yen Jordan MD documented in this encounter Nursing Notes * Debbi Rosario, MED ASSIST - 07/09/2023 8:55 AM EST Chief Complaint Patient presents with NEW PATIENT documented in this encounter Plan of Treatment Upcoming Encounters Date Type Department Care Team (Late st Contact Info) Description 07/13/2023 12:30 PM EST Telemedicine [facility] Obstetrics Maternal Medicine, [place] [address] [place] [address] Catherine Atkins CRNP [address] [place] [address] 07/27/2023 9:00 AM EST Nurse Only Pulmonary Medicine, [facility] [address] [facility], [facility] [id number] 07/30/2023 8:00 AM EST Imaging Maternal Medicine Imaging, [facility] [address] [facility] [place] [phone] 08/07/2023 9:00 AM EST Laboratory Laboratory, [facility] [address] [facility] [place] [phone] [facility] [address] [place] [address] 08/07/2023 9:30 AM EST Office Visit Gynecology/Obstetrics [facility] [address] [facility] [place] [address] Zunilda Carmen CRNP [address] [place] [address] 09/28/2023 11:40 AM EST Office Visit Pulmonary Medicine, [facility] [address] [facility] [place] [address] Ruel Domínguez, [address] [place] [address] 09/29/2023 9:30 AM EST Office Visit [facility] Obstetrics Maternal Medicine, [place] [address] [place], [place] [id number] Suzy Funk, [address] [place] [address] 09/29/2023 9:30 AM EST Imaging Radiology [facility], [place] [address] [place], [place] [id number] Scheduled Referrals Name Type Priority Associated Diagnoses Orde r Schedule NEUROLOGY REFERRAL OP Referral Within 10 days (routine) Neurologic disorder Ordered: 07/07/2023 Health Maintenance Due Date Last Done Comments [...] this encounter Medical Devices Implanted Type Area Utility Gelatin Maker Device Identifier Shelf Expiration Date Model / Serial / Lot Suture Olivia Long - [id number] Implanted:Qty : 1 on 12/16/[address] MD at OR 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 No Care Teams Driver License Agent Relationship Specialty Start Date End Date Lynette Jorge DO [address] [address] PCP - General Family Medicine 06/25/16 documented as of this encounter"
--- OUTSIDE RECORDS SUMMARY | 2023-07-26 18:22 | External Medical Summary | Summary of Care ---
Author Name Unknown Organization [facility] Address [address] [place] [address] Phone [phone] Care Team Providers Care Ict Teacher Name Role Phone Ania Lynette Alejandro GUPTA Primary Care Provider [phone] Reason for Visit * Reason Onset Date Comments Precert In Process 06/02/2023 [facility] Encounter Details Date Type Department Care Team (Late st Contact Info) Description 06/02/2023 [facility], [place] [address] [place] [address] Mann Nunez MD [address] [place] [address] Precert In Process ([facility] Allergies Active Allergy Reactions Criticality Noted Date [...] (OCEAN) 0.65 % nasal spray Administer 1 [place] into nostril 2 times a day. And as needed for nasal congestion. 30 mL 12 9 Active Vit-Fe Jll-PG-Bjhgx (ONE-A-DAY WOMENS ) 28-0.8 & 223 MG [...] MCG/INH Inhalation Aerosol Powder Breath Activated (umeclidinium [place]) Inhale by mouth 1 Puff in the [...] persistent asthma without complication 150 mg SC [id number] 09/11/2022 Acti ve Albuterol Sulfate (Proventil) (2.5 [...] Asthma, severe persistent 07/22/2013 Overview: Admitted to [facility] for acute exacerbation on 10/08/18-10/11/18. Has been admitted monthly since last January. Takes deltasone 10mg daily GERD (gastroesophageal reflux disease) 3 Overview: Nissin fundoplication x2. Not on meds for GERD at time of NOB Last Assessment & Plan: Continue SWEET DOUGH MIXER famotidine documented as of this encounter (statuses [...] getting steroids and breathing treatments. Continuing on SWEET DOUGH MIXER inhalers and steroid 40mg daily. Pulmonary medicine [...] INFORMATION 09/28/2018 12/21/2018 Overview: Taking prometrium at [facility] Obesity in , antepartum 09/28/2018 07/12/2019 Overview: BMI: 31.92 kg/m at [facility] Pt desires nutrition consult as this is her highest weight, feels it to be associated with prednisone use Early 1hr gtt normal Hypokalemia 01/13/2017 01/13/2017 Overview: [age] y/o while in hospital with continuous neb, went in to arrhythmia Single liveborn, [facility], delivered by section 10/03/2016 01/07/2017 INFORMATION 09/09/2016 01/07/2017 Overview: Pt needs to see arlin Peña section in [place] on 10/01/16. RSV (respiratory syncytial virus infection) [...] any current needs or questions 05/09/2016 Chelsey Dejeuss RN 05/09/16 Problem Action Taken Date entered [...] have money to get more. Sometimes true [place] Depression Scale Answer Date Recorded [place] Depression Scale Total 8 07/07/2023 The thought [...] auth. Contact plan to follow up on [id number] * Telephone Encounter - Alejandra Robertson, MED ASSIST - 07/15/2023 9:[address] Nunez states that "Hoodliudmilaspire is fine" - pt preference for location for injection, however she is physically closer to the [facility] which she may prefer. * [...] Thank you Susanna Magana [facility] Sewer Repairer [facility] 07/10/2023,11:35 AM * Telephone Encounter - Judy Del Toro OSA - 06/29/2023 11:33 AM EST Images from the original note were not included. AUTH REQUEST DENIED: * Telephone Encounter - Judy Del Toro OSA - 06/29/2023 10:33 AM EST Requested auth. Contact plan to follow up on [id number] * Telephone Encounter - Susanna Magana CPhT - 06/25/2023 1:09 PM EST Madi, Just checking to see if there has been any progress on this PA yet. Thank you Susanna Magana [facility] Sewer Repairer [facility] 06/25/2023,1:10 PM. * Telephone Encounter - Faviola Mora CPhT - 06/16/2023 2:10 PM EST Checking on the status of the pa for the Nucala, please advise Thank you Faviola Mora Sewer Repairer III [facility] 06/16/2023,2:10 PM * Telephone Encounter - Hue Houser [facility] - 06/04/2023 2:52 PM EDT Please see Pulmonary pre-cert request for Mepolizumab (Nucala) 100mg/ml Pen - 100mg every 4 weeks .- route referral message with approval, denial or questions back to Pulmonary Pharmacist Pool [phone]. Current Asthma Medications: Controller(s): - Symbicort 160-4.5 [...] 0.44 ! Birch IgE <0.10 kUa/L <0.10 Denali Maple IgE <0.10 kUa/L <0.10 Appling IgE <0.10 kUa/L <0.10 Elm IgE <0.10 kUa/L <0.10 Warren IgE <0.10 kUa/L <0.10 Pecan [place] IgE <0.10 kUa/L <0.10 Trosper Tree IgE <0.10 kUa/L <0.10 White Anthony IgE <0.10 kUa/L <0.10 Cocklebur IgE <0.10 kUa/L <0.10 Common Ragweed IgE <0.10 kUa/L 0.33 Moroccan Plantain IgE <0.10 kUa/L <0.10 Cook's Quarter IgE <0.10 kUa/L <0.10 Mugwort IgE <0.10 kUa/L <0.10 Pigweed IgE <0.10 kUa/L <0.10 Sheep [place] IgE <0.10 kUa/L <0.10 !: Data is [...] 28 * Telephone Encounter - Alejandra Robertson, Global Registry of Bi[employer]positories - 06/02/2023 12:24 PM EDT Pulmonary Medicine [...] Severe persistent asthma, uncomplicated J45.50 Location: [facility]: Route pre-cert request to [id number]. Referral to pharmacist for: Clinical co-management. Medication(s) Tried/Failed/Contraindicated: Xolair See corresponding visit note(s) for additional supporting clinical information. Office Information: Prescriber: Dr. Nunez documented in this encounter Plan of Treatment Upcoming Encounters Date Type Department Care Team (Late st Contact Info) Description 07/27/2023 9:00 AM EST Nurse Only Pulmonary Medicine, [facility] [address] [facility] [place] [address] Gw, Nurse Pulmonary 132 [facility] [place] [address] 07/30/2023 8:00 AM EST Imaging Maternal Medicine Imaging, [address] [place] [phone] 07/30/2023 8:00 AM EST Office Visit Seismology Technical Officer Obstetrics Maternal Medicine, [address] [place] [address] Suzy Funk, DO [address], [place] [phone] 08/07/2023 9:00 AM EST Laboratory Laboratory, [facility] [phone] [facility] [address] [address] 08/07/2023 9:30 AM EST Office Visit Gynecology/Obstetrics [facility] [address] [facility] [place] [address] Zunilda Carmen CRNP 132 [facility] [place] [address] 09/28/2023 11:40 AM EST Office Visit Pulmonary Medicine, [facility] [address] [facility] [place] [address] Ruel Domínguez, DO [address] [place] [address] 09/29/2023 9:30 AM EST Office Visit Seismology Technical Officer Obstetrics Maternal Medicine, [place] [address] [place] [address] Good Suzysb Gamboa, [address] [place] [address] 09/29/2023 9:30 AM EST Imaging Radiology [facility], [place] [address] [place], [place] [phone] Health Maintenance Due Date Last Done Comments [...] this encounter Medical Devices Implanted Type Area Air Conditioning Engineer Device Identifier Shelf Expiration Date Model / Serial / Lot Suture Cinch Long - [id number] Implanted:Qty : 1 on 12/16/[address] MD at OR [facility] N/A: Esophagus [employer] 07/15/2024 [facility]-C01-21 3-L / / [id number] documented as of this encounter Advance Directives [...] patient have Health Care Power of Medical Genetics Director? No Care Teams Ict Teacher Relationship Specialty Start Date End Date Lynette Jorge DO [address] [address] PCP - General Family Medicine 06/25/16 documented as of this encounter
--- OUTSIDE RECORDS SUMMARY | 2023-07-26 18:22 | External Medical Summary | Summary of Care ---
Author Name Unknown Organization [facility] Address [address] [place] [address] Phone [phone] Care Team Providers Care Assistant Plant Manager Name Role Phone Ania Lynette Alejandro GUPTA Primary Care Provider [phone] Reason for Visit * Reason Onset Date Comments Medication Pre-auth 07/09/2023 Encounter Details Date Type Department Care Team (Late st Contact Info) Description 07/09/2023 Telephone Pulmonary Medicine, [facility] [address] [place] [address] Mann Nunez MD [address] [place] [address] Medication Pre-auth Allergies Active Allergy [...] (OCEAN) 0.65 % nasal spray Administer 1 [place] into nostril 2 times a day. And as needed for nasal congestion. 30 mL 12 11/10/2018 Active Vit-Fe Dds-JX-Udqrw (ONE-A-DAY WOMENS ) 28-0.8 & 223 MG [...] MCG/INH Inhalation Aerosol Powder Breath Activated (umeclidinium [place]) Inhale by mouth 1 Puff in the [...] persistent asthma without complication 150 mg SC [id number] 09/11/2022 Acti ve Albuterol Sulfate (Proventil) (2.5 [...] of NOB Last Assessment & Plan: Continue LOGISTICS SERVICE REPRESENTATIVE famotidine Estimated Date of Delivery Comme [...] getting steroids and breathing treatments. Continuing on LOGISTICS SERVICE REPRESENTATIVE inhalers and steroid 40mg daily. Pulmonary [...] INFORMATION 09/28/2018 12/21/2018 Overview: Taking prometrium at [facility] Obesity in , antepartum 09/28/2018 07/12/2019 Overview: BMI: 31.92 kg/m at NOB Pt desires nutrition consult as this is her highest weight, feels it to be associated with prednisone use Early 1hr gtt normal Hypokalemia 01/13/2017 01/13/2017 Overview: [age] y/o while in hospital with continuous neb, went in to arrhythmia Single liveborn, born in [facility], delivered by section 10/03/2016 01/07/2017 INFORMATION 09/09/2016 01/07/2017 Overview: Pt needs to see arlin Peña section in [place] on 10/01/16. RSV (respiratory syncytial virus infection) [...] have money to get more. Sometimes true [place] Depression Scale Answer Date Recorded [place] Depression Scale Total 8 07/07/2023 The thought [...] 10:53 AM EST Pt receives biologic at [facility]. Message sent to [facility] Pulmonary Nurse appleton for assistance. * Telephone Encounter - Judy Del Toro OSA - 07/10/2023 6:38 AM EST Please fill out smart phrase and send back to p [id number] Also, is the patient definitely continuing Xolair? In previous TE it stated xolair was not working and medication was trying to be changed. Nucala was denied because Fasenra or Dupixent are preferred. PT HAS APT SCHEDULED FOR 07/27 FOR XOLAIR. * Telephone Encounter - Fiona Giraldo OSA - 07/09/2023 4:26 PM [place] [id number]. Thank you, Fiona Giraldo Medication Buckle Assembler II [facility] 07/09/2023,4:26 PM * Telephone Encounter - Pema Lin LPN - 07/09/2023 1:56 PM EST Pt's Xolair requires a PA documented in this encounter Plan of Treatment Upcoming Encounters Date Type Department Care Team (Late st Contact Info) Description 07/13/2023 12:30 PM EST Telemedicine Optical Effects Layout Person Obstetrics Maternal Medicine, [place] [address] [place] [address] Catherine Atkins CRNP [address] [place] [address] 07/27/2023 9:00 AM EST Nurse Only Pulmonary Medicine, [facility] 132 [facility] [place] [address] Gw, Nurse Pulmonary 132 [facility] [place] [address] 07/30/2023 8:00 AM EST Imaging Maternal Medicine Imaging, [facility] 132 [facility] [place] [phone] 08/07/2023 9:00 AM EST Laboratory Laboratory, [facility] [place] [phone] [facility] [place] [address] 08/07/2023 9:30 AM EST Office Visit Gynecology/Obstetrics [facility] [address] [place] [address] Zunilda Carmen CRNP [address] [place] [address] 09/28/2023 11:40 AM EST Office Visit Pulmonary Medicine, [facility] 132 [facility] [place] [address] DomínguezRuel, [address] [place] [address] 09/29/2023 9:30 AM EST Office Visit Optical Effects Layout Person Obstetrics Maternal Medicine, [place] [address] [place], [place] [phone] Suzy Funk, [address] [place], [place] [phone] 09/29/2023 9:30 AM EST [facility], [place] [address] [place], [place] [phone] Health Maintenance Due Date Last Done Comments [...] this encounter Medical Devices Implanted Type Area Cartridge Belt Puncher Device Identifier Shelf Expiration Date Model / Serial / Lot Suture Olivia Baer - [id number] Implanted:Qty : 1 on 12/16/[address] MD at OR [facility] N/A: Esophagus [employer] 07/15/2024 [facility]-C01-21 3-L / / [id number] documented as of this encounter Advance Directives [...] the patient have Health Care Power of Media Coordinator? No Care Teams Assistant Plant Manager Relationship Specialty Start Date End Date Lynette Jorge DO [address] [address] PCP - General Family Medicine 06/25/16 documented as of this encounter
--- OUTSIDE RECORDS SUMMARY | 2023-07-26 18:22 | External Medical Summary | Summary of Care ---
Author Name Unknown Organization [facility] Address [address] [place] [address] Phone [phone] Care Team Providers Care Director Agricultural Services Name Role Phone Ania Lynette Alejandro GUPTA Primary Care Provider [phone] Reason for Visit * Reason Onset Date Comments Medication Pre-auth 07/09/2023 Encounter Details Date Type Department Care Team (Late st Contact Info) Description 07/09/2023 Telephone Pulmonary Medicine, [facility] [address] [place] [address] Mann Nunez MD [address] [place] [address] Medication Pre-auth Allergies Active Allergy [...] (OCEAN) 0.65 % nasal spray Administer 1 [place] into nostril 2 times a day. And as needed for nasal congestion. 30 mL 12 11/10/2018 Active Vit-Fe Zvw-UD-Sbrix (ONE-A-DAY WOMENS ) 28-0.8 & 223 MG [...] MCG/INH Inhalation Aerosol Powder Breath Activated (umeclidinium [place]) Inhale by mouth 1 Puff in the [...] persistent asthma without complication 150 mg SC [id number] 09/11/2022 Acti ve Albuterol Sulfate (Proventil) (2.5 [...] Asthma, severe persistent 07/22/2013 Overview: Admitted to [facility] for acute exacerbation on 10/08/18-10/11/18. Has been admitted monthly since last January. Takes deltasone 10mg daily GERD (gastroesophageal reflux disease) 3 Overview: Nissin fundoplication x2. Not on meds for GERD at time of NOB Last Assessment & Plan: Continue TEACHER HOME THERAPY famotidine Estimated Date of Delivery Comme nts [...] getting steroids and breathing treatments. Continuing on TEACHER HOME THERAPY inhalers and steroid 40mg daily. Pulmonary medicine [...] INFORMATION 09/28/2018 12/21/2018 Overview: Taking prometrium at [facility] Obesity in , antepartum 09/28/2018 07/12/2019 Overview: BMI: 31.92 kg/m at NOB Pt desires nutrition consult as this is her highest weight, feels it to be associated with prednisone use Early 1hr gtt normal Hypokalemia 01/13/2017 01/13/2017 Overview: [age] y/o while in hospital with continuous neb, went in to arrhythmia Single liveborn, born in [facility], delivered by section 10/03/2016 01/07/2017 INFORMATION 09/09/2016 01/07/2017 Overview: Pt needs to see arlin Peña section in [place] on 10/01/16. RSV (respiratory syncytial virus infection) [...] have money to get more. Sometimes true [place] Depression Scale Answer Date Recorded [place] Depression Scale Total 8 07/07/2023 The thought [...] smart phrase and send back to p [id number] * Telephone Encounter - Fiona Giraldo OSA - 07/09/2023 4:26 PM EST [place] go to p [id number]. Thank you, Fiona Giraldo Medication Audiovisual Equipment Operator II [facility] 07/09/2023,4:26 PM * Telephone Encounter - Pema Lin LPN - 07/09/2023 1:56 PM EST Pt's Xolair requires a PA documented in this encounter Plan of Treatment Upcoming Encounters Date Type Department Care Team (Late st Contact Info) Description 07/13/2023 12:30 PM EST Telemedicine Harbor Engineer Obstetrics Maternal Medicine, [place] [address] [place] [address] Catherine Atkins CRNP [address] [place] [address] 07/27/2023 9:00 AM EST Nurse Only Pulmonary Medicine, [facility] 132 [place] [address] Gw, Nurse Pulmonary 132 [place] [address] 07/30/2023 8:00 AM EST Imaging Maternal Medicine Imaging, [address] [phone] 08/07/2023 9:00 AM EST Laboratory Laboratory, [address] [place] [address] [place] [address] 08/07/2023 9:30 AM EST Office Visit Gynecology/Obstetrics [facility] [address] Zunilda Carmen CRNP 132 [facility] [address] 09/28/2023 11:40 AM EST Office Visit Pulmonary Medicine, [facility] 132 [facility] [place] [address] Ruel Domínguez [address] [place], [place] [phone] 09/29/2023 9:30 AM EST Office Visit Harbor Engineer Obstetrics Maternal Medicine, [place] [address] [place], [place] [phone] Suzy Funk [address] [place] [address] 09/29/2023 9:30 AM EST [facility] [address] [place] [address] Health Maintenance Due Date Last Done Comments [...] encounter Medical Devices Implanted Type Area Manager Credit Collections Device Identifier Shelf Expiration Date Model / Serial / Lot Suture Cinch Long - [id number] Implanted:Qty : 1 on 12/16/[address] MD at OR [facility] N/A: Esophagus [employer] 07/15/2024 [facility]-C01-21 3-L / / [id number] documented as of this encounter Advance Directives [...] the patient have Health Care Power of Line Rider? No Care Teams Director Agricultural Services Relationship Specialty Start Date End Date Lynette Jorge DO [address] [address] PCP - General Family Medicine 06/25/16 documented as of this encounter
--- OUTSIDE RECORDS SUMMARY | 2023-07-26 18:22 | External Medical Summary | Summary of Care ---
Author Name Unknown Organization [facility] Address [address] [place] [address] Phone [phone] Care Team Providers Care Loss Prevention Detective Name Role Phone Ania Lynette Alejandro GUPTA Primary Care Provider [phone] Reason for Visit * Reason Onset Date Comments Medication Pre-auth 07/09/2023 Encounter Details Date Type Department Care Team (Late st Contact Info) Description 07/09/2023 Telephone Pulmonary Medicine, [facility] [address] [place] [address] Mann Nunez MD [address] [place] [address] Medication Pre-auth Allergies Active Allergy [...] (OCEAN) 0.65 % nasal spray Administer 1 [place] into nostril 2 times a day. And as needed for nasal congestion. 30 mL 12 11/10/2018 Active Vit-Fe Oft-XE-Kvymc (ONE-A-DAY WOMENS ) 28-0.8 & 223 MG [...] MCG/INH Inhalation Aerosol Powder Breath Activated (umeclidinium [place]) Inhale by mouth 1 Puff in the [...] persistent asthma without complication 150 mg SC [id number] 09/11/2022 Acti ve Albuterol Sulfate (Proventil) (2.5 [...] Asthma, severe persistent 07/22/2013 Overview: Admitted to [facility] for acute exacerbation on 10/08/18-10/11/18. Has been admitted monthly since last January. Takes deltasone 10mg daily GERD (gastroesophageal reflux disease) 3 Overview: Nissin fundoplication x2. Not on meds for GERD at time of NOB Last Assessment & Plan: Continue BUNDLE PERSON famotidine Estimated Date of Delivery Comme nts [...] getting steroids and breathing treatments. Continuing on BUNDLE PERSON inhalers and steroid 40mg daily. Pulmonary medicine [...] INFORMATION 09/28/2018 12/21/2018 Overview: Taking prometrium at [facility] Obesity in , antepartum 09/28/2018 07/12/2019 Overview: BMI: 31.92 kg/m at NOB Pt desires nutrition consult as this is her highest weight, feels it to be associated with prednisone use Early 1hr gtt normal Hypokalemia 01/13/2017 01/13/2017 Overview: [age] y/o while in hospital with continuous neb, went in to arrhythmia Single liveborn, born in [facility], delivered by section 10/03/2016 01/07/2017 INFORMATION 09/09/2016 01/07/2017 Overview: Pt needs to see arlin Peña section in [place] on 10/01/16. RSV (respiratory syncytial virus infection) [...] have money to get more. Sometimes true [place] Depression Scale Answer Date Recorded [place] Depression Scale Total 8 07/07/2023 The thought [...] smart phrase [place] p [id number] Also, is the patient definitely continuing Xolair? In previous TE it stated xolair was not working and medication was trying to be changed. Nucala was denied because Fasenra or Dupixent are preferred. PT HAS APT SCHEDULED FOR 07/27 FOR XOLAIR. * Telephone Encounter - Fiona Giraldo OSA - 07/09/2023 4:26 PM [place] [id number]. Thank you, Fiona Giraldo Medication Executive Sales Assistant II [facility] 07/09/2023,4:26 PM * Telephone Encounter - Pema Lin LPN - 07/09/2023 1:56 PM EST Pt's Xolair requires a PA documented in this encounter Plan of Treatment Upcoming Encounters Date Type Department Care Team (Late st Contact Info) Description 07/13/2023 12:30 PM EST Telemedicine Mattress Filling Machine Tender Obstetrics Maternal Medicine, [place] [address] [place] [address] Catherine Atkins CRNP [address] [place] [address] 07/27/2023 9:00 AM EST Nurse Only Pulmonary Medicine, [facility] 132 [facility] [place] [address] Gw, Nurse Pulmonary 132 [facility] [place] [address] 07/30/2023 8:00 AM EST Imaging Maternal Medicine Imaging, [facility] 132 [facility] [phone] 08/07/2023 9:00 AM EST Laboratory Laboratory, [facility] 132 [facility] [phone] [facility] 132 [facility] [address] 08/07/2023 9:30 AM EST Office Visit Gynecology/Obstetrics [facility] 132 [facility] [place] [address] Zunilda Carmen CRNP 132 [facility] [place] [address] 09/28/2023 11:40 AM EST Office Visit Pulmonary Medicine, [facility] 132 [facility] [place] [address] Ruel Domínguez DO [address] [place], [place] [phone] 09/29/2023 9:30 AM EST Office Visit Mattress Filling Machine Tender Obstetrics Maternal Medicine, [place] [address] [place] [address] Good, Suzy Gamboa, [address] [place] [address] 09/29/2023 9:30 AM EST Imaging Radiology [facility], [place] [address] [address] [place], [place] [phone] Health Maintenance Due Date Last Done Comments [...] this encounter Medical Devices Implanted Type Area Head Waiter/Waitress Banquet Device Identifier Shelf Expiration Date Model / Serial / Lot Suture Cinch Long - [id number] Implanted:Qty : 1 on 12/16/[address] MD at OR [facility] N/A: Esophagus [employer] 07/15/2024 [facility]-C01-21 3-L / / [id number] documented as of this encounter Advance Directives [...] the patient have Health Care Power of Water System Operator? No Care Teams Loss Prevention Detective Relationship Specialty Start Date End Date Lynette Jorge DO [address] [address] PCP - General Family Medicine 06/25/16 documented as of this encounter
--- OUTSIDE RECORDS SUMMARY | 2023-07-26 18:22 | External Medical Summary | Summary of Care ---
Author Name Unknown Organization [facility] Address [address] [place] [address] Phone [phone] Care Team Providers Care Pit Steward Name Role Phone Ania Lynette Alejandro GUPTA Primary Care Provider [phone] Reason for Visit * Reason Onset Date Comments Precert In Process 06/02/2023 [facility] Encounter Details Date Type Department Care Team (Late st Contact Info) Description 06/02/2023 [place] [facility], [place] [address] [place] [address] Mann Nunez MD [address] [place] [address] Precert In Process ([facility] C... Allergies Active Allergy Reactions Criticality Noted [...] (OCEAN) 0.65 % nasal spray Administer 1 [place] into nostril 2 times a day. And as needed for nasal congestion. 30 mL 12 9 Active Vit-Fe Usi-DJ-Hquyy (ONE-A-DAY WOMENS ) 28-0.8 & 223 MG [...] MCG/INH Inhalation Aerosol Powder Breath Activated (umeclidinium [place]) Inhale by mouth 1 Puff in the [...] persistent asthma without complication 150 mg SC [id number] 09/11/2022 Acti ve Albuterol Sulfate (Proventil) (2.5 [...] Asthma, severe persistent 07/22/2013 Overview: Admitted to [facility] for acute exacerbation on 10/08/18-10/11/18. Has been admitted monthly since last January. Takes deltasone 10mg daily GERD (gastroesophageal reflux disease) 3 Overview: Nissin fundoplication x2. Not on meds for GERD at time of NOB Last Assessment & Plan: Continue FIELD SERVICE REPRESENTATIVE famotidine documented as of this encounter (statuses [...] getting steroids and breathing treatments. Continuing on FIELD SERVICE REPRESENTATIVE inhalers and steroid 40mg daily. [...] INFORMATION 09/28/2018 12/21/2018 Overview: Taking prometrium at [facility] Obesity in , antepartum 09/28/2018 07/12/2019 Overview: BMI: 31.92 kg/m at [facility] Pt desires nutrition consult as this is her highest weight, feels it to be associated with prednisone use Early 1hr gtt normal Hypokalemia 01/13/2017 01/13/2017 Overview: [age] y/o while in hospital with continuous neb, went in to arrhythmia [facility]born[facility] delivered by section 10/03/2016 01/07/2017 INFORMATION 09/09/2016 01/07/2017 Overview: Pt needs to see arlin Peña section in [place] on 10/01/16. RSV (respiratory syncytial virus infection) [...] Recent hospitalization for pneumonia/ asthma 04/15/2016 Hue Rudea RN 04/16/2016 Problem Action Taken Date entered [...] have money to get more. Sometimes true [place] Depression Scale Answer Date Recorded [place] Depression Scale Total 8 07/07/2023 The thought [...] auth. Contact plan to follow up on [id number] * Telephone Encounter - Alejandra Robertson, MED ASSIST - 07/15/2023 9:[address] Nunez states that "Hoodliudmilaspire is fine" - pt preference for location for injection, however she is physically closer to the [facility] which she may prefer. * Telephone Encounter - Susanna Magana CPhT - 07/10/2023 11:34 AM EST Hello, We see the PA for Nucala has been denied. Will an appeal be done? We are going to profile the script at this time, if the PA gets approved please let us know so we can rerun the script. Thank you Susanna Magana [facility] Cushion Worker [facility] 07/10/2023,11:35 AM * Telephone Encounter - Judy Del Toro OSA - 06/29/2023 11:33 AM EST Images from the original note were not included. AUTH REQUEST DENIED: * Telephone Encounter - Judy Del Toro OSA - 06/29/2023 10:33 AM EST Requested auth. Contact plan to follow up on [id number] * Telephone Encounter - Susanna Magana CPhT - 06/25/2023 1:09 PM EST Madi, Just checking to see if there has been any progress on this PA yet. Thank you Susanna Magana [facility] Cushion Worker [facility] 06/25/2023,1:10 PM. * Telephone Encounter - Faviola Mora CPhT - 06/16/2023 2:10 PM EST Checking on the status of the pa for the Nucala, please advise Thank you Faviola Mora Cushion Worker III [facility] 06/16/2023,2:10 PM * Telephone Encounter - Hue Houser [facility] - 06/04/2023 2:52 PM EDT Please see Pulmonary pre-cert request for Mepolizumab (Nucala) 100mg/ml Pen - 100mg every 4 weeks .- route referral message with approval, denial or questions back to Pulmonary Pharmacist Pool [id number]. Current Asthma Medications: Controller(s): - Symbicort 160-4.5 [...] 0.44 ! Birch IgE <0.10 kUa/L <0.10 [place] Maple IgE <0.10 kUa/L <0.10 [place] IgE <0.10 kUa/L <0.10 Elm IgE <0.10 kUa/L <0.10 [place] IgE <0.10 kUa/L <0.10 Pecan [place] IgE <0.10 kUa/L <0.10 [place] Tree IgE <0.10 kUa/L <0.10 [place] IgE <0.10 kUa/L <0.10 [place] IgE <0.10 kUa/L <0.10 Common Ragweed IgE <0.10 kUa/L 0.33 [place] Plantain IgE <0.10 kUa/L <0.10 [place] IgE <0.10 kUa/L <0.10 Mugwort IgE <0.10 kUa/L <0.10 Pigweed IgE <0.10 kUa/L <0.10 Sheep [place] IgE <0.10 kUa/L <0.10 !: Data is [...] 45 [phone] * Telephone Encounter - Aljeandra Robertson, Shut Down - 06/02/2023 12:24 PM EDT Pulmonary Medicine [...] persistent asthma, uncomplicated J45.50 Location: [facility]: Route pre-cert request to [id number]. Referral to pharmacist for: Clinical co-management. Medication(s) Tried/Failed/Contraindicated: Xolair See corresponding visit note(s) for additional supporting clinical information. Office Information: Prescriber: Dr. Nunez documented in this encounter Plan of Treatment Upcoming Encounters Date Type Department Care Team (Late st Contact Info) Description 07/27/2023 9:00 AM EST Nurse Only Pulmonary Medicine, [facility] 132 [facility] [place] [address] Gw, Nurse Pulmonary 132 [facility] [place] [address] 07/30/2023 8:00 AM EST Imaging Maternal Medicine Imaging, [address] [place] [phone] 07/30/2023 8:00 AM EST Office Visit Milling Supervisor Obstetrics Maternal Medicine, [address] [place] [address] Suzy Funk, DO [address], [place] [id number] 08/07/2023 9:00 AM EST [facility], [facility] [phone] [facility] [address] [address] 08/07/2023 9:30 AM EST Office Visit Gynecology/Obstetrics [facility] 132 [facility] [place] [address] Zunilda Carmen CRNP 132 [facility] [place] [address] 09/28/2023 11:40 AM EST Office Visit Pulmonary Medicine, [facility] [address] [facility] [place] [address] Ruel Domínguez, DO [address] [place] [address] 09/29/2023 9:30 AM EST Office Visit Milling Supervisor Obstetrics Maternal Medicine, [place] [address] [place] [address] Good Suzysb [place], [address] [place] [address] 09/29/2023 9:30 AM EST Imaging Radiology [facility], [place] [address], [place] [phone] Health Maintenance Due Date Last Done Comments [...] this encounter Medical Devices Implanted Type Area Developer Analyst Device Identifier Shelf Expiration Date Model / Serial / Lot Suture Cinch Long - [id number] Implanted:Qty : 1 on 12/16/[address] MD at OR [facility] N/A: Esophagus [employer] 07/15/2024 [facility]-C01-21 3-L / / [id number] documented as of this encounter Advance Directives [...] the patient have Health Care Power of Yarn Worker? No Care Teams Pit Steward Relationship Specialty Start Date End Date Lynette Jorge DO [address] [address] PCP - General Family Medicine 06/25/16 documented as of this encounter
--- OUTSIDE RECORDS SUMMARY | 2023-07-26 18:22 | External Medical Summary | Summary of Care ---
Author Name Unknown Organization [facility] Address [address] [place] [address] Phone [phone] Care Team Providers Care Supervisory Training Specialist Name Role Phone Ania Lynette Alejandro GUPTA Primary Care Provider [phone] Reason for Visit * Reason Onset Date Comments Medication Pre-auth 07/09/2023 Encounter Details Date Type Department Care Team (Late st Contact Info) Description 07/09/2023 Telephone Pulmonary Medicine, [facility] [address] [place] [address] Mnan Nunez MD [address] [place] [address] Medication Pre-auth Allergies Active Allergy [...] (OCEAN) 0.65 % nasal spray Administer 1 [place] into nostril 2 times a day. And as needed for nasal congestion. 30 mL 12 11/10/2018 Active Vit-Fe Awr-TJ-Cporq (ONE-A-DAY WOMENS ) 28-0.8 & 223 MG [...] MCG/INH Inhalation Aerosol Powder Breath Activated (umeclidinium [place]) Inhale by mouth 1 Puff in the [...] persistent asthma without complication 150 mg SC [id number] 09/11/2022 Acti ve Albuterol Sulfate (Proventil) (2.5 [...] severe persistent 07/22/2013 Overview: Admitted to [facility] for acute exacerbation on 10/08/18-10/11/18. Has been admitted monthly since last January. Takes deltasone 10mg daily GERD (gastroesophageal reflux disease) 3 Overview: Nissin fundoplication x2. Not on meds for GERD at time of NOB Last Assessment & Plan: Continue MANAGER CLINICAL INFORMATICS famotidine Estimated Date of Delivery Comme nts [...] getting steroids and breathing treatments. Continuing on MANAGER CLINICAL INFORMATICS inhalers and steroid 40mg daily. Pulmonary medicine [...] INFORMATION 09/28/2018 12/21/2018 Overview: Taking prometrium at [facility] Obesity in , antepartum 09/28/2018 07/12/2019 Overview: BMI: 31.92 kg/m at NOB Pt desires nutrition consult as this is her highest weight, feels it to be associated with prednisone use Early 1hr gtt normal Hypokalemia 01/13/2017 01/13/2017 Overview: [age] y/o while in hospital with continuous neb, went in to arrhythmia Single liveborn, born in [facility], delivered by section 10/03/2016 01/07/2017 INFORMATION 09/09/2016 01/07/2017 Overview: Pt needs to see arlin Peña section in [place] on 10/01/16. RSV (respiratory syncytial virus infection) [...] have money to get more. Sometimes true [place] Depression Scale Answer Date Recorded [place] Depression Scale Total 8 07/07/2023 The thought [...] smart phrase and send back to p [id number] Also, is the patient definitely continuing Xolair? In previous TE it stated xolair was not working and medication was trying to be changed. Nucala was denied because Fasenra or Dupixent are preferred. * Telephone Encounter - Fiona Giraldo OSA - 07/09/2023 4:26 PM EST [place] go to p [id number]. Thank you, Fiona Giraldo Medication Car Spotter II [facility] 07/09/2023,4:26 PM * Telephone Encounter - Pema Lin LPN - 07/09/2023 1:56 PM EST Pt's Xolair requires a PA documented in this encounter Plan of Treatment Upcoming Encounters Date Type Department Care Team (Late st Contact Info) Description 07/13/2023 12:30 PM EST Telemedicine City Carrier Obstetrics Maternal Medicine, [place] [address] [place] [address] Catherine Atkins CRNP [address] [place] [address] 07/27/2023 9:00 AM EST Nurse Only Pulmonary Medicine, [facility] 132 [facility] [place] [address] Gw, Nurse Pulmonary 132 [facility] [place] [address] 07/30/2023 8:00 AM EST Imaging Maternal Medicine Imaging, [facility] 132 [facility] [place] [phone] 08/07/2023 9:00 AM EST Laboratory Laboratory, [facility] 132 [facility] [place] [phone] [facility] [address] 08/07/2023 9:30 AM EST Office Visit Gynecology/Obstetrics [facility] 132 [facility] [place] [address] Zunilda Carmen CRNP 132 [facility] [place] [address] 09/28/2023 11:40 AM EST Office Visit Pulmonary Medicine, [facility] 132 [facility] [place] [address] Ruel Domínguez DO [address] [place] [address] 09/29/2023 9:30 AM EST Office Visit City Carrier Obstetrics Maternal Medicine, [place] [address] [place] [address] Good Suzysb [place], [address] [place] [address] 09/29/2023 9:30 AM EST Imaging Radiology [facility], [place] [address] [place], [place] [phone] Health Maintenance Due Date Last Done Comments [...] this encounter Medical Devices Implanted Type Area Conveyor Belt Operator Device Identifier Shelf Expiration Date Model / Serial / Lot Suture Cinch Long - [id number] Implanted:Qty : 1 on 12/16/[address] MD at OR [facility] N/A: Esophagus [employer] 07/15/2024 [facility]-C01-21 3-L / / [id number] documented as of this encounter Advance Directives [...] the patient have Health Care Power of Conveyor Belt Operator? No Care Teams Supervisory Training Specialist Relationship Specialty Start Date End Date Lynette Jorge DO [address] [place] [address] PCP - General Family Medicine 06/25/16 documented as of this encounter
--- OUTSIDE RECORDS SUMMARY | 2023-07-26 18:23 | External Medical Summary | Summary of Care ---
Author Name Unknown Organization [facility] Address [address] [place] [address] Phone [phone] Care Team Providers Care Associate Director Of Development Name Role Phone Ania Lynette Alejandro GUPTA Primary Care Provider [phone] Reason for Visit * Reason Onset Date Comments [facility]ert In [facility]02[facility]2023 [facility] Encounter Details Date Type Department Care Team (Late st Contact Info) Description 06/02/2023 Telephone Pulmonary Medicine, [place] [address] [place] [address] Mann Nunez MD [address] [place] [address] Precert In Process ([facility] CAR... Allergies Active Allergy Reactions Criticality Noted Date Comments Bactrim Hives High 07/06/2013 Dust Cough High 07/06/2013 Sneezing, coughing, asthma Nickel Rash 03/19/2021 Other Allergy (See Comments) Itching,Wheezing Medium 07/06/2013 Grass- redness, itching, asthma Pollen Cough High 07/06/2013 Sneezing, cough, asthma Sulfa Antibiotics Hives High 07/06/2013 Trimethoprim Hives 05/24/2018 documented as of this encounter (statuses as of 06/29/2023) Medications Medication Sig Dispensed Refills Start Date End Date Status polyethylene glycol 3350 (MIRALAX) packet Take 1 Packet by mouth daily. 14 Each 0 9 Active Additional Information Patient taking differently:17 g OralDAILY PRN, Informant: Patient, Reported on 09/22/2022 saline (OCEAN) 0.65 % nasal spray Administer 1 [place] into nostril 2 times a day. And as needed for nasal congestion. 30 mL 12 9 Active Vit-Fe Mai-VQ-Cbmjp (ONE-A-DAY WOMENS ) 28-0.8 & 223 MG MISC Take 1 Tab by mouth daily. 0 Active Iron-Vitamin C 65-125 MG Oral Tablet Take 1 Tablet by mouth in the morning. 0 Active famotidine (PEPCID) 20 MG TabletIndications: Gastroesophageal reflux disease without esophagitis Take 1 tablet by mouth twice daily 60 Tab 5 0 Active Montelukast Sodium 10 MG Oral Tablet (Singulair)Indicat ions:Severe persistent asthma without complication Take 1 Tab by mouth daily. 30 Tab 11 0 Active Topiramate 50 MG Oral Tablet (topAMAX)Indicatio ns:takes at night Take 1 Tablet by mouth in the morning and 1 Tablet before bedtime. 0 Active Fluticasone Propionate 50 MCG/ACT Nasal Suspension (Flonase)Indicatio ns:Severe persistent asthma without complication Administer 2 Sprays into each nostril daily. 18.2 mL 11 1 Active oxygen IN GAS Use as directed. 2 lpm as needed 0 Active Loratadine 10 MG Oral Tablet (Claritin) 1 Tablet. 0 1 Active Omeprazole 20 MG Oral Capsule Delayed Release (PriLOSEC)Indicati ons:Gastroesophage al reflux disease without esophagitis Take by mouth 1 Capsule in the morning. 90 Capsule 3 2 Active Incruse Ellipta 62.5 MCG/INH Inhalation Aerosol Powder Breath Activated (umeclidinium [place]) Inhale by mouth 1 Puff in the [...] Sulfate (2.5 MG/3ML) 0.083% Inhalation Nebulization Solution (Proventil)Indicat ions:Severe persistent asthma without complication Inhale 1 Vial via nebulizer every 4 hours as needed for Wheezing or Shortness of Breath. 528 mL 2 3 Active Fluticasone Propionate HFA 220 MCG/ACT Inhalation Aerosol (Flovent HFA) Inhale 2 Puffs by mouth every night at bedtime. with chamber. Rinse mouth after use. 12 g 6 3 Active Budesonide-Formote rol Fumarate 160-4.5 MCG/ACT Inhalation Aerosol (Symbicort)Indicat ions:Severe persistent asthma without complication Inhale 2 Puffs by mouth in the morning and 2 Puffs before bedtime. 30.6 g 2 3 Active Albuterol Sulfate HFA 108 (90 Base) MCG/ACT Inhalation Aerosol SolutionIndication s:Severe persistent asthma without complication INHALE 2 PUFFS [...] 4 weeks. 1 mL 12 3 Active Norethindrone 0.35 MG Oral TabletIndications: Encounter for initial prescription of contraceptive pills,Routine screening for STI (sexually transmitted infection) Take 1 Tablet by mouth in the morning. 28 Tablet 3 3 06/08/20 23 Discontinued Hospital, Clinic, or Other Facility Administered Medication Ordered Dose Route Frequency Start Date End Date Status Omalizumab (Xolair) inj 150 mgIndications:Severe persistent asthma without complication 150 mg SC G4CBPAC 09/11/2022 Acti ve Albuterol Sulfate (Proventil) (2.5 MG/3ML) 0.083% inhalation solution 2.5 mgIndications:Severe persistent asthma with (acute) exacerbation 2.5 mg NEBULIZER ONCE PRN 02/02/2023 Acti ve Albuterol Sulfate (Proventil) (2.5 MG/3ML) 0.083% inhalation solution 2.5 mgIndications:Severe persistent asthma with acute exacerbation 2.5 mg NEBULIZER PRN 01/27/2023 01/27/2024 Active documented as of this encounter (statuses as of 06/29/2023) Active Problems Problem Noted Date Diagnosed Date Weight gain 06/03/2023 PTSD (post-traumatic stress disorder) 09/02/2021 Heart murmur 04/27/2019 Advance directive declined by patient 03/24/2019 Overview: No, Advance Directive brochure offered, patient declined. Fibroid, uterine 02/17/2019 Current chronic use of systemic steroids 019 Vitamin D insufficiency 10/20/2018 Overview: October 2018 = 27 Suggest discussing with PCP, elizabeth rod able, suggest taking up to 2000 IU Vit D3 daily during . Idiopathic intracranial hypertension 06/08/2017 Demyelinating disease 06/08/2017 Overview: 05/26 seeing neuro, abnormal MRI however MS workup neg Iron deficiency anemia 08/09/2016 Allergic rhinitis 08/08/2013 Asthma, severe persistent 07/22/2013 Overview: [place] [facility] [place] 10/08/18-10/11/18. Has been admitted monthly since last January. Takes deltasone 10mg daily GERD (gastroesophageal reflux disease) 3 Overview: Nissin fundoplication x2. Not on meds for GERD at time of NOB Last Assessment & Plan: Continue PRODUCT DEVELOPMENT ACTUARY famotidine documented as of this encounter (statuses as of 06/29/2023) Resolved Problems Problem Noted Date Diagnosed Date Resolved Date Status asthmaticus 02/15/2019 9 Nocturnal hypoxemia due to asthma 12/31/2018 06/07/2019 High-risk 12/29/2018 12/03/20 19 Obesity, Class I, BMI 30.0-3 4.9 (see actual BMI) 11/05/2018 09/21/2019 Asthma exacerbation 11/05/2018 01/14/20 19 Severe persistent asthma wit h acute exacerbation 10/08/2018 04/15/2019 Last Assessment & Plan: Patient was recently discharged on similar symptoms. Doing better now after getting steroids and breathing treatments. Continuing on PRODUCT DEVELOPMENT ACTUARY inhalers and steroid 40mg daily. Pulmonary medicine [...] INFORMATION 09/28/2018 12/21/2018 Overview: Taking prometrium at NO Obesity in , antepartum 09/28/2018 07/12/2019 Overview: BMI: 31.92 kg/m at NOB Pt desires nutrition consult as this is her highest weight, feels it to be associated with prednisone use Early 1hr gtt normal Hypokalemia 01/13/2017 01/13/2017 Overview: [age] y/o while in hospital with continuous neb, went in to arrhythmia Single liveborn, born in [facility], delivered by section 10/03/2016 01/07/2017 INFORMATION 09/09/2016 01/07/2017 Overview: Pt needs to see arlin Peña section in [place] on 10/01/16. RSV (respiratory syncytial virus infection) [...] Date resolved classes Pt attended 08/25/2016 Hue Rueda, SANDRA 08/25/2016 Problem Action Taken Date entered Entered [...] current needs or questions 04/15/2019 Maria A Amaro, SANDRA 04/15/19 Problem Action Taken Date entered Entered [...] as of this encounter (statuses as of 06/29/2023) Immunizations Name Administration Dates Next Due H1N1 [...] in the Last Year Never true 03/31/2019 [place] Depression Scale Answer Date Recorded [place] Depression Scale Score 3 02/15/2020 The thought of harming myself has occurred to me . (Pt Reported) 02/15/2020 Sex and Gender Information Value Date Recorded Sex Assigned at Not on file Gender Identity Not on file Sexual Orientation Not on file Job Start Date Occupation Industry Not on [...] auth. Contact plan to follow up on [id number] * Telephone Encounter - Susanna Magana CPhT - 06/25/2023 1:09 PM EST Madi, Just checking to see if there has been any progress on this PA yet. Thank you Susanna Magana CPhT [employer]rigeration Systems Installer [facility] 06/25/2023,1:10 PM. * Telephone Encounter - Faviola Mora CPhT - 06/16/2023 2:10 PM EST Checking on the status of the pa for the Nucala, please advise Thank you Faviola Mora [employer]rigeration Systems Installer III [facility] 06/16/2023,2:10 PM * Telephone Encounter - Hue Houser RPh - 06/04/2023 2:52 PM EDT Please see Pulmonary pre-cert request for Mepolizumab (Nucala) 100mg/ml Pen - 100mg every 4 weeks .- route referral message with approval, denial or questions back to Pulmonary Pharmacist [place] [id number]. Current Asthma Medications: Controller(s): - Symbicort 160-4.5 [...] 0.44 ! Birch IgE <0.10 kUa/L <0.10 [place] Maple IgE <0.10 kUa/L <0.10 [place] IgE <0.10 kUa/L <0.10 Elm IgE <0.10 kUa/L <0.10 [place]cam[place] IgE <0.10 kUa/L <0.10 Pecan [place] IgE <0.10 kUa/L <0.10 [place] Tree IgE <0.10 kUa/L <0.10 [place] IgE <0.10 kUa/L <0.10 [place] IgE <0.10 kUa/L <0.10 Common Ragweed IgE <0.10 kUa/L 0.33 [place] Plantain IgE <0.10 kUa/L <0.10 [place] IgE <0.10 kUa/L <0.10 Mugwort IgE <0.10 kUa/L <0.10 Pigweed IgE <0.10 kUa/L <0.10 Sheep [place] IgE <0.10 kUa/L <0.10 !: Data is [...] persistent asthma, uncomplicated J45.50 Location: [facility]: Route pre-cert request to [facility]. Referral to pharmacist for: Clinical co-management. Medication(s) Tried/Failed/Contraindicated: Xolair See corresponding visit note(s) for additional supporting clinical information. Office Information: Prescriber: Dr. Nunez documented in this encounter Plan of Treatment Upcoming Encounters Date Type Department Care Team (Late st Contact Info) Description 07/01/2023 10:15 AM EST Nurse Only Gynecology/Obstetrics [facility] [address] [facility] [place] [address] Gw, Nurse Machine Brusher [facility] 132 [facility] [place] [address] 07/07/2023 8:15 AM EST Imaging Radiology [facility] [address] [facility] [place] [address] 07/07/2023 9:30 AM EST Office Visit Gynecology/Obstetrics [facility] [address] [facility] [place] [address] Backer, ESTUARDO Brown 132 [facility] [place] [address] 07/27/2023 9:00 AM EST Nurse Only Pulmonary Medicine, [facility] [address] [place] [address] , Nurse Pulmonary [address] [place] [address] Health Maintenance Due Date Last Done Comments [...] this encounter Medical Devices Implanted Type Area Ear Flap Binder Device Identifier Shelf Expiration Date Model / Serial / Lot Suture Cinch Long - [id number] Implanted:Qty : 1 on 12/16/[address] MD at OR [facility] N/A: Esophagus [employer] 07/15/2024 [facility]-C01-21 3-L / / [id number] documented as of this encounter Advance Directives [...] the patient have Health Care Power of Manager Of Drilling? No Care Teams Associate Director Of Development Relationship Specialty Start Date End Date Lynette Jorge DO [address] [place] [address] PCP - General Family Medicine 06/25/16 documented as of this encounter
--- OUTSIDE RECORDS SUMMARY | 2023-07-26 18:23 | External Medical Summary ---
Author Name Unknown Address Unknown Organization K01:[facility] [place] [address] [place] [address] Laboratory Report Ordering Provider Test Date Status ANALILIAGUSTABO 07/07/2023 10:30:30 Final Observation Date Value Abnormality Reference (Units ) Status Hep C Ab 07/07/2023 10:30:30 Negative Negative Final Further HCV quantitative martita ting not performed per protocol. Performing Location [facility] [place] [address] [place] [address]
--- OUTSIDE RECORDS SUMMARY | 2023-07-26 18:23 | External Medical Summary | Summary of Care ---
Author Name Unknown Organization [facility] Address [address] [place] [address] Phone [phone] Care Team Providers Care Senior Construction Estimator Name Role Phone Lynette Jorge DO Primary Care Provider [phone] Reason for Visit * Reason Comments Outpatient Testing Encounter Details Date Type Department Care Team (Late st Contact Info) Description 07/07/2023 11:10 AM EST Laboratory Laboratory, [facility] [address] [place] [address] [facility] [address] [place] [address] High-risk in first trimester; Weight gain Allergies Active Allergy Reactions Criticality Noted Date Comments Bactrim Hives High 07/06/2013 Dust Cough High 07/06/2013 Sneezing, coughing, asthma Nickel Rash 03/19/2021 Other Allergy (See Comments) Itching,Wheezing Medium 07/06/2013 Grass- redness, itching, asthma Pollen Cough High 07/06/2013 Sneezing, cough, asthma Sulfa Antibiotics Hives High 07/06/2013 Trimethoprim Hives 05/24/2018 documented as of this encounter (statuses as of 07/07/2023) Medications Medication Sig Dispensed Refills Start Date End Date Status polyethylene glycol 3350 (MIRALAX) packet Take 1 Packet by mouth daily. 14 Each 0 10/12/2018 Active Additional Information Patient taking differently:17 g OralDAILY PRN, Informant: Patient, Reported on 09/22/2022 saline (OCEAN) 0.65 % nasal spray Administer 1 [place] into nostril 2 times a day. And as needed for nasal congestion. 30 mL 12 11/10/2018 Active Vit-Fe Svk-KL-Asnyf (ONE-A-DAY WOMENS ) 28-0.8 & 223 MG [...] MCG/INH Inhalation Aerosol Powder Breath Activated (umeclidinium [place]) Inhale by mouth 1 Puff in the [...] persistent asthma without complication 150 mg SC [id number] 09/11/2022 Acti ve Albuterol Sulfate (Proventil) (2.5 MG/3ML) 0.083% inhalation solution 2.5 mgIndications:Severe persistent asthma with (acute) exacerbation 2.5 mg NEBULIZER ONCE PRN 02/02/2023 Acti ve Albuterol Sulfate (Proventil) (2.5 MG/3ML) 0.083% inhalation solution 2.5 mgIndications:Severe persistent asthma with acute exacerbation 2.5 mg NEBULIZER PRN 01/27/2023 01/27/2024 Active documented as of this encounter (statuses as of 07/07/2023) Active Problems Problem Noted Date Diagnosed Date [...] Asthma, severe persistent 07/22/2013 Overview: Admitted to [facility] [place]ation on 10/08/18-10/11/18. Has been admitted monthly since last January. Takes deltasone 10mg daily GERD (gastroesophageal reflux disease) 3 Overview: Nissin fundoplication x2. Not on meds for GERD at time of NOB Last Assessment & Plan: Continue TINSMITH APPRENTICE famotidine Estimated Date of Delivery Comme nts Yes 02/13/2024 Based on Ultraso und documented as of this encounter (statuses as of 07/07/2023) Resolved Problems Problem Noted Date Diagnosed Date Resolved Date Status asthmaticus 02/15/2019 9 Nocturnal hypoxemia due to asthma 12/31/2018 06/07/2019 High-risk 12/29/2018 07/12/20 19 Obesity, Class I, BMI 30.0-3 4.9 (see actual BMI) 11/05/2018 09/21/2019 Asthma exacerbation 11/05/2018 01/14/20 Severe persistent asthma wit h acute exacerbation 10/08/2018 04/15/2019 Last Assessment & Plan: Patient was recently discharged on similar symptoms. Doing better now after getting steroids and breathing treatments. Continuing on TINSMITH APPRENTICE inhalers and steroid 40mg daily. Pulmonary medicine [...] INFORMATION 09/28/2018 12/21/2018 Overview: Taking prometrium at [facility] Obesity in , antepartum 09/28/2018 07/12/2019 Overview: BMI: 31.92 kg/m at NOB Pt desires nutrition consult as this is her highest weight, feels it to be associated with prednisone use Early 1hr gtt normal Hypokalemia 01/13/2017 01/13/2017 Overview: 16/16 y/o while in hospital with continuous neb, went in to arrhythmia Single liveborn, born in [facility], delivered by section 10/03/2016 01/07/2017 INFORMATION 09/09/2016 01/07/2017 Overview: Pt needs to see arlin Peña section in [place] on 10/01/16. RSV (respiratory syncytial virus infection) [...] as of this encounter (statuses as of 07/07/2023) Immunizations Name Administration Dates Next Due H1N1 [...] have money to get more. Sometimes true [place] Depression Scale Answer Date Recorded [place] Depression Scale Total 8 07/07/2023 The [...] 07/09/2023 9:00 AM EST Office Visit Neurology [facility] [place] [address] Yen Jordan MD 200 [facility] [place] [address] 07/27/2023 9:00 AM EST Nurse Only Pulmonary Medicine, [facility] 132 [facility] [place] [address] Gw, Nurse Pulmonary 132 [facility] [place] [address] 08/07/2023 9:00 AM EST Laboratory Laboratory, [facility] 132 [facility] [place] [id number] Hong Vigils 132 [facility] [place] [address] 08/07/2023 9:30 AM EST Office Visit Gynecology/Obstetrics [facility] [address] [place] [address] Zunilda Carmen CRNP [address] [place] [address] 09/28/2023 11:40 AM EST Office Visit Pulmonary Medicine, [facility] [address] [facility] [place] [address] Ruel Domínguez, DO [address] [place] [address] Pending Results Name Type Priority Associated Diagnoses Date /Time TYPE AND SCREEN Lab Routine High-risk in first trimester 07/07/2023 10:30 AM EST RUBELLA IGG ANTIBODY Lab Routine High-risk in first trimester 07/07/2023 10:30 AM EST HEPATITIS B SURFACE ANTIGEN Lab Routine High-risk in first trimester 07/07/2023 10:30 AM EST HIV ANTIGEN & ANTIBODY SCREEN W/ CONFIRMATION Lab Routine High-risk in first trimester 07/07/2023 10:30 AM EST CBC WITH WBC DIFFERENTIAL AND ANEMIA REFLEX WORKUP Lab Routine High-risk in first trimester 07/07/2023 10:30 AM EST HEPATITIS C ANTIBODY SCREEN WITH PROGRESSION TO HEPATITIS C RNA QUANTITATIVE Lab Routine High-risk in first trimester 07/07/2023 10:30 AM EST SYPHILIS ANTIBODY SCREEN WITH REFLEX TO RPR Lab Routine High-risk in first trimester 07/07/2023 10:30 AM EST ANEMIA CBC Lab Routine High-risk in first trimester 07/07/2023 10:30 AM EST DIFFERENTIAL, AUTOMATED Lab Routine High-risk in first trimester 07/07/2023 10:30 AM EST ANEMIA REFLEX CHEMISTRY HOLD Lab Routine High-risk in first trimester 07/07/2023 10:30 AM EST HEPATITIS C ANTIBODY Lab Routine High-risk in first trimester 07/07/2023 10:30 AM EST HEPATITIS C RNA ADD ON Lab Routine High-risk in first trimester 07/07/2023 10:30 AM EST SYPHILIS ANTIBODY SCREEN Lab Routine High-risk in first trimester 07/07/2023 10:30 AM EST INSULIN Lab Routine Weight gain 07/07/2023 10:30 AM EST Health Maintenance Due Date Last [...] this encounter Medical Devices Implanted Type Area Hospital Liaison Device Identifier Shelf Expiration Date Model / Serial / Lot Suture Cinch Long - [id number] Implanted:Qty : 1 on 12/16/[address] MD at OR [facility] N/A: Esophagus [employer] 07/15/2024 [facility]-C01-21 3-L / / [id number] documented as of this encounter Procedures Procedure Name Priority Date/Time Associated Diagnosis Comments BASIC METABOLIC PANEL Routine 07/07/2023 10:30 AM EST Weight gain documented in this encounter Results * BASIC METABOLIC PANEL (07/07/2023 10:30 AM EST) BUN 10 6 - 20 mg/dL 07/07/2023 12:49 PM EST [facility] [place] [facility] Creatinine 0.8 0.5 - 1.0 mg/dL 07/07/2023 12:49 PM EST [facility] [place] [facility] Estimated Glomerular Filtration Rate >90 >=60 mL/min 07/07/2023 12:49 PM EST [facility] [place] [facility] Comment:eGFR is calculated b ased on the CKD-EPI 2020 equation Sodium 136 135 - 146 mmol/L 07/07/2023 12:49 PM EST [facility] [place] [facility] Potassium 4.1 3.5 - 5.1 mmol/L 07/07/2023 12:49 PM EST [facility] [place] [facility] Chloride 101 98 - 107 mmol/L 07/07/2023 12:49 PM EST [facility] [place] [facility] CO2 25 22 - 32 mmol/L 07/07/2023 12:49 PM EST [facility] [place] [facility] Anion Gap 10 7 - 15 mmol/L 07/07/2023 12:49 PM EST [facility] [place] [facility] Glucose 77 70 - 120 mg/dL 07/07/2023 12:49 PM EST [facility] [place] [facility] Calcium 9.9 8.4 - 10.2 mg/dL 07/07/2023 12:49 PM EST [facility] [place] [facility] Blood Venous blood specimen / Unknown Venipuncture / Unknown 07/07/2023 10:30 AM EST 07/07/2023 11:30 AM EST Ann MARTE LAB BLOOD [facility] Organization Address City/State/ZIP Co de Phone Number [facility] [place] [phone] [facility] [place] [phone] documented in this encounter Visit Diagnoses Diagnosis High-risk in first trimester Weight gain Abnormal weight gain documented in this encounter Advance Directives Latest [...] the patient have Health Care Power of Motor Analyst? No Care Teams Senior Construction Estimator Relationship Specialty Start Date End Date Lynette Jorge DO [address] [place] [address] PCP - General Family Medicine 06/25/16 documented as of this encounter
--- OUTSIDE RECORDS SUMMARY | 2023-07-26 18:23 | External Medical Summary ---
Author Name Unknown Address Unknown Organization K01:[facility] [place] [address] [place] [address] Laboratory Report Ordering Provider Test Date Status KORY HESTERPretty 07/07/2023 10:30:00 Final Observation Date Value Abnormality Reference (Units ) Status Insulin level 07/07/2023 10:30:00 12 3-25 ( uU/mL) Final The above reference interval is based on fasting status. Performing Location [facility] [place] [address] [place] [address]
--- OUTSIDE RECORDS SUMMARY | 2023-07-26 18:23 | External Medical Summary ---
Author Name Unknown Address Unknown Organization K01:[facility] [place] [address] [facility] [address] Laboratory Report Ordering Provider Test Date Status ANALILIABACKER 07/07/2023 10:30:30 Final Observation Date Value Abnormality Reference (Units ) Status SYNC LEUKOCYTES IN BLOOD BY AUTOMATED COUNT 07/07/2023 10:30:30 10.11 4.00-10.80 (K/uL) Final Segs 07/07/2023 10:30:30 72.5 40.0-75.0 (%) Final Lymphs % 07/07/2023 10:30:30 19.6 18.0-42.0 (%) Final Monos 07/07/2023 10:30:30 5.8 1.0-11.0 (%) Final Eosinophils 07/07/2023 10:30:30 1.3 0.0-6.0 (%) Final Basos 07/07/2023 10:30:30 0.4 0.0-2.0 (%) Final Immature Granulocyte, Percent 07/07/2023 10:30:30 0.4 0.0-2.0 (%) Final Absolute Segs 07/07/2023 10:30:30 7.33 1.80-7.70 (K/uL) Final Lymphs, absolute 07/07/2023 10:30:30 1.98 1.00-4.80 (K/ul) Final Monos, Abs 07/07/2023 10:30:30 0.59 0.00-1.10 (K/uL) Final Eos, Abs 07/07/2023 10:30:30 0.13 0.00-0.70 (K/uL) Final Basos, Abs 07/07/2023 10:30:30 0.04 0.00-0.20 (K/uL) Final Immature Granulocytes, Number 07/07/2023 10:30:30 0.04 0.00-0.20 (K/uL) Final Performing Location [facility] [place] [address] [facility] [address]
--- OUTSIDE RECORDS SUMMARY | 2023-07-26 18:23 | External Medical Summary ---
Author Name Unknown Address Unknown Organization K01[place] [place] [address] [place] [address] Laboratory Report Ordering Provider Test Date Status GUSTABO BILLINGSLEY 07/07/2023 10:30:30 Final Observation Date Value Abnormality Reference (Units ) Status Rubella virus IgG Ab [Presence] in Serum 07/07/2023 10:30:30 Positive Abnormal Negative Final A positive result is consist ent with having had rubella virus or vaccination. Performing Location [facility] [place] [address] [place] [address]
--- OUTSIDE RECORDS SUMMARY | 2023-07-26 18:23 | External Medical Summary ---
Author Name Unknown Address Unknown Organization K01:[facility]ORY [facility] [place] [address] [place] [address] Laboratory Report Ordering Provider Test Date Status JAMIN BILLINGSLEYHOWARD 07/07/2023 10:30:30 Final Observation Date Value Abnormality Reference (Units ) Status Hep B surface Ag 07/07/2023 10:30:30 Negative Neg ative Final Performing Location LABORATORY C - [address] [place] [address]
--- OUTSIDE RECORDS SUMMARY | 2023-07-26 18:23 | External Medical Summary ---
Author Name Unknown Address Unknown Organization K01:[facility]ORY [facility] [place] - [address] [facility] [address] Laboratory Report Ordering Provider Test Date Status GUSTABO BILLINGSLEY 07/07/2023 10:30:30 Final Observation Date Value Abnormality Reference (Units ) Status Treponema pallidum Ab [Presence] in Serum by Immunoassay 07/07/2023 10:30:30 Nonreactive Nonreactive Final No serologic evidence of syp hilis. No additional testing clinicially indicated at this time. Consider repeat testing in 2-4 weeks if acute or primary syphilis is suspected. Performing Location LABORATORY [facility] [place] - [address] [place] [address]
--- OUTSIDE RECORDS SUMMARY | 2023-07-26 18:23 | External Medical Summary | Summary of Care ---
Author Name Unknown Organization [facility] Address [address] [facility] [place] [address] Phone [phone] Care Team Providers Care Real Estate Associate Attorney Name Role Phone Lynette Jorge DO Primary Care Provider [phone] Reason for Visit * Reason Onset Date Comments Advice 07/07/2023 Encounter Details Date Type Department Care Team (Late st Contact Info) Description 07/07/2023 Telephone Gynecology/Obstetrics [facility] [address] [facility] [place] [address] BackJessica waldrop CRNP [address] [facility] [address] Advice Allergies Active Allergy Reactions Criticality Noted Date Comments Bactrim Hives High 07/06/2013 Dust Cough High 07/06/2013 Sneezing, coughing, asthma Nickel Rash 03/19/2021 Other Allergy (See Comments) Itching,Wheezing Medium 07/06/2013 Grass- redness, itching, asthma Pollen Cough High 07/06/2013 Sneezing, cough, asthma Sulfa Antibiotics Hives High 07/06/2013 Trimethoprim Hives 05/24/2018 documented as of this encounter (statuses as of 07/08/2023) Medications Medication Sig Dispensed Refills Start Date End Date Status polyethylene glycol 3350 (MIRALAX) packet Take 1 Packet by mouth daily. 14 Each 0 10/12/2018 Active Additional Information Patient taking differently:17 g OralDAILY PRN, Informant: Patient, Reported on 09/22/2022 saline (OCEAN) 0.65 % nasal spray Administer 1 Hanna into nostril 2 times a day. And as needed for nasal congestion. 30 mL 12 11/10/2018 Active Vit-Fe Yze-FY-Pikly (ONE-A-DAY WOMENS ) 28-0.8 & 223 MG [...] MCG/INH Inhalation Aerosol Powder Breath Activated (umeclidinium [place]) Inhale by mouth 1 Puff in the [...] persistent asthma without complication 150 mg SC [id number] 09/11/2022 Acti ve Albuterol Sulfate (Proventil) (2.5 MG/3ML) 0.083% inhalation solution 2.5 mgIndications:Severe persistent asthma with (acute) exacerbation 2.5 mg NEBULIZER ONCE PRN 02/02/2023 Acti ve Albuterol Sulfate (Proventil) (2.5 MG/3ML) 0.083% inhalation solution 2.5 mgIndications:Severe persistent asthma with acute exacerbation 2.5 mg NEBULIZER PRN 01/27/2023 01/27/2024 Active documented as of this encounter (statuses as of 07/08/2023) Active Problems Problem Noted Date Diagnosed Date [...] of NOB Last Assessment & Plan: Continue WASTEWATER SUPERVISOR famotidine Estimated Date of Delivery Comme nts Yes 02/13/2024 Based on Ultraso und documented as of this encounter (statuses as of 07/08/2023) Resolved Problems Problem Noted Date Diagnosed Date [...] getting steroids and breathing treatments. Continuing on WASTEWATER SUPERVISOR inhalers and steroid 40mg daily. Pulmonary [...] INFORMATION 09/28/2018 12/21/2018 Overview: Taking prometrium at [facility] Obesity in , antepartum 09/28/2018 07/12/2019 [...] needs to see arlin Peña section in [place] on 10/01/16. RSV (respiratory syncytial virus infection) [...] as of this encounter (statuses as of 07/08/2023) Immunizations Name Administration Dates Next Due H1N1 [...] have money to get more. Sometimes true Kerman Depression Scale Answer Date Recorded Kerman Depression Scale Total 8 07/07/2023 The thought [...] encounter Miscellaneous Notes * Telephone Encounter - Hue Rueda RN - 07/08/2023 8:41 AM EST Pt is aware. * Telephone Encounter - Hue Rueda RN - 07/08/2023 8:36 AM EST left message for patient to call office * Telephone Encounter - Jessica Omer CRNP - 07/08/2023 7:38 AM EST Agree with advice given. ESTUARDO Mathews * Telephone Encounter - Erin Holliday LPN - 07/07/2023 4:37 PM EST Patient called in with concerns of small subchorionic hemorrhage she saw noted on her US results. She is concerned as this was not mentioned during her visit and is wondering if she needs any restrictions. She has not had any bleeding or spotting. I told patient these typically resolve on their own and are not usually of any concern. Please advise- Any restrictions on activity or follow up needed? documented in this encounter Plan of Treatment Upcoming Encounters Date Type Department Care Team (Late st Contact Info) Description 07/09/2023 9:00 AM EST Office Visit Neurology [facility] [address] [place] [address] Yen Jordan MD [address] [facility] [place] [address] 07/13/2023 12:30 PM EST Telemedicine Senior Clinical Sas Programmer Obstetrics Maternal Medicine, [place] [address] [place] [address] Catherine Atkins CRNP [address] [place] [address] 07/27/2023 9:00 AM EST Nurse Only Pulmonary Medicine, [facility] [address] [facility] [place] [address] Gw, Nurse Pulmonary [address] [facility] [place] [address] 07/30/2023 8:00 AM EST Imaging Maternal Medicine Imaging, [facility] [address] [facility] [place] [phone] 08/07/2023 9:00 AM EST Laboratory Laboratory, [facility] [address] [facility] [place] [phone] Hong Vigil [address] [place] [address] 08/07/2023 9:30 AM EST Office Visit Gynecology/Obstetrics [facility] [address] [place] [address] Zunilda Carmen CRNP [address] [place] [address] 09/28/2023 11:40 AM EST Office Visit Pulmonary Medicine, [facility] [address] [place] [address] Ruel Domínguez, [address] [place] [address] 09/29/2023 9:30 AM EST Office Visit Senior Clinical Sas Programmer Obstetrics Maternal Medicine, [place] [address] [place] [address] Suzy Funk, [address] [place] [address] 09/29/2023 9:30 AM EST Imaging Radiology [facility] [place], [place] [address] [place], [place] [id number] Health Maintenance Due Date Last Done Comments [...] this encounter Medical Devices Implanted Type Area Tire Balancer Device Identifier Shelf Expiration Date Model / Serial / Lot Suture Olivia Baer - [id number] Implanted:Qty : 1 on 12/16/[address] MD at OR [facility] N/A: Esophagus [employer] 07/15/2024 [facility]-C01-21 3-L / / [id number] documented as of this encounter Advance Directives [...] patient have Health Care Power of Sign Artist? No Care Teams Real Estate Associate Attorney Relationship Specialty Start Date End Date Lynette Jorge DO [address] [place] [address] PCP - General Family Medicine 06/25/16 documented as of this encounter
--- OUTSIDE RECORDS SUMMARY | 2023-07-26 18:23 | External Medical Summary | Summary of Care ---
Author Name Unknown Organization [facility] Address [address] [place] [address] Phone [phone] Care Team Providers Care Industrial Economist Name Role Phone Lynette Jorge DO Primary Care Provider [phone] Reason for Visit * Reason Comments Nurse Documentation Encounter Details Date Type Department Care Team (Late st Contact Info) Description 07/01/2023 10:15 AM EST Nurse Only Gynecology/Obstetrics [facility] [address] [place] [address] Gw, Nurse Bottom Bleacher [facility] [address] [facility] [place] [address] Nurse Documentation Allergies Active Allergy Reactions Criticality Noted Date Comments Bactrim Hives High 07/06/2013 Dust Cough High 07/06/2013 Sneezing, coughing, asthma Nickel Rash 03/19/2021 Other Allergy (See Comments) Itching,Wheezing Medium 07/06/2013 Grass- redness, itching, asthma Pollen Cough High 07/06/2013 Sneezing, cough, asthma Sulfa Antibiotics Hives High 07/06/2013 Trimethoprim Hives 05/24/2018 documented as of this encounter (statuses as of 07/01/2023) Medications Medication Sig Dispensed Refills Start Date End Date Status polyethylene glycol 3350 (MIRALAX) packet Take 1 Packet by mouth daily. 14 Each 0 10/12/2018 Active Additional Information Patient taking differently:17 g OralDAILY PRN, Informant: Patient, Reported on 09/22/2022 saline (OCEAN) 0.65 % nasal spray Administer 1 Conesus into nostril 2 times a day. And as needed for nasal congestion. 30 mL 12 11/10/2018 Active Vit-Fe Ufc-UB-Bztwt (ONE-A-DAY WOMENS ) 28-0.8 & 223 MG MISC Take 1 Tab by mouth daily. 0 Active famotidine (PEPCID) 20 MG TabletIndications: Gastroesophageal reflux disease without esophagitis Take 1 tablet by mouth twice daily 60 Tab 5 12/21/2019 Active Fluticasone Propionate 50 MCG/ACT Nasal Suspension (Flonase)Indicatio ns:Severe persistent asthma without complication Administer 2 Sprays into each nostril daily. 18.2 mL 11 01/03/2021 Active oxygen IN GAS Use as directed. 2 lpm as needed 0 Active Loratadine 10 MG Oral Tablet (Claritin) 1 Tablet. 0 04/24/2021 Active Incruse Ellipta 62.5 MCG/INH Inhalation Aerosol Powder Breath Activated (umeclidinium [place]) Inhale by mouth 1 Puff in the [...] of Breath. 528 mL 2 09/11/2022 Active Budesonide-Formote rol Fumarate 160-4.5 MCG/ACT Inhalation [...] 4 weeks. 1 mL 12 06/02/2023 Active Iron-Vitamin C 65-125 MG Oral Tablet Take 1 Tablet by mouth in the morning. 0 3 Discontinu ed(Medicat ion List Clean Up) Montelukast Sodium 10 MG Oral Tablet (Singulair)Indicat ions:Severe persistent asthma without complication Take 1 Tab by mouth daily. 30 Tab 11 05/09/2020 3 Discontinu ed(Medicat ion List Clean Up) Topiramate 50 MG Oral Tablet (topAMAX)Indicatio ns:takes at night Take 1 Tablet by mouth in the morning and 1 Tablet before bedtime. 0 3 Discontinu ed(Medicat ion List Clean Up) Omeprazole 20 MG Oral Capsule Delayed Release (PriLOSEC)Indicati ons:Gastroesophage al reflux disease without esophagitis Take by mouth 1 Capsule in the morning. 90 Capsule 3 10/07/2021 3 Discontinu ed(Medicat ion List Clean Up) Fluticasone Propionate HFA 220 MCG/ACT Inhalation Aerosol (Flovent HFA) Inhale 2 Puffs by mouth every night at bedtime. with chamber. Rinse mouth after use. 12 g 6 09/11/2022 3 Discontinu ed(Medicat ion List Clean Up) Doxycycline Hyclate 100 MG Oral Capsule TAKE 1 CAPSULE BY MOUTH TWICE A DAY FOR 7 DAYS 0 3 Discontinu ed(Medicat ion List Clean Up) Progesterone 200 MG Oral Capsule (Prometrium) Administer 1 Capsule into the vagina every night at bedtime. 30 Capsule 3 06/08/2023 3 Discontinu ed(Medicat ion List Clean Up) /Folic Acid Oral Tablet Take by mouth. 0 3 Discontinu ed(Medicat ion List Clean Up) Hospital, Clinic, or Other Facility Administered Medication Ordered Dose Route Frequency Start Date End Date Status Omalizumab (Xolair) inj 150 mgIndications:Severe persistent asthma without complication 150 mg SC [id number] 09/11/2022 Acti ve Albuterol Sulfate (Proventil) (2.5 MG/3ML) 0.083% inhalation solution 2.5 mgIndications:Severe persistent asthma with (acute) exacerbation 2.5 mg NEBULIZER ONCE PRN 02/02/2023 Acti ve Albuterol Sulfate (Proventil) (2.5 MG/3ML) 0.083% inhalation solution 2.5 mgIndications:Severe persistent asthma with acute exacerbation 2.5 mg NEBULIZER PRN 01/27/2023 01/27/2024 Active documented as of this encounter (statuses as of 07/01/2023) Active Problems Problem Noted Date Diagnosed Date [...] Asthma, severe persistent 07/22/2013 Overview: Admitted to [facility] for acute exacerbation on 10/08/18-10/11/18. Has been admitted monthly since last January. Takes deltasone 10mg daily GERD (gastroesophageal reflux disease) 3 Overview: Nissin fundoplication x2. Not on meds for GERD at time of NOB Last Assessment & Plan: Continue FOUNTAIN ATTENDANT famotidine Comments Yes documented as of this encounter (statuses as of 07/01/2023) Resolved Problems Problem Noted Date Diagnosed Date [...] getting steroids and breathing treatments. Continuing on FOUNTAIN ATTENDANT inhalers and steroid 40mg daily. Pulmonary medicine [...] INFORMATION 09/28/2018 12/21/2018 Overview: Taking prometrium at [facility] Obesity in , antepartum [...] needs to see arlin Peña section in [place] on 10/01/16. RSV (respiratory syncytial virus infection) [...] any current needs or questions 09/08/2016 Chelsey Dejessu RN 09/08/16 Problem Action Taken Date entered [...] records confirming above. Last Assessment & Plan: RAMANA consulted as patient was due for US outpatient and now admitted. First trimester screening 10/26/2014 , normal first 09/07/201401/2016 Overview: MFM referral placed for FTS-negative Offer MSAFP after 15 weeks-negative Vocal cord dysfunction 08/08/201306/08 documented as of this encounter (statuses as of 07/01/2023) Immunizations Name Administration Dates Next Due H1N1 [...] in the Last Year Never true 03/31/2019 [place] Depression Scale Answer Date Recorded Lafayette Depression Scale Score 3 02/15/2020 The thought of harming myself has occurred to me . (Pt Reported) 02/15/2020 Comments Yes Sex and Gender Information Value Date Recorded [...] as of this encounter Progress Notes * Fariha Mckeon, HOLLI - 07/01/2023 10:23 AM EST Patient here for initial ob visit. No transferred records. Patient had a positive test here in the office today. Are you planning a home delivery?No Pt advised , If at anytime during your you decide to pursue a home , please notify our office. Patient oriented to the Women's Health department and current providers in the practice.We discuss the the options of delivery, [facility] vs [facility] with midwives. Reviewed frequency of visits. Reviewed outreach clinics and how to contact providers during regularoffice hours and after office hours. Educational packet reviewed. [facility] is a way you can talk to your provider online through e-mail. Would you like to sign up, I can activate it for you. ALREADY ACTIVE Patient advised not to use [facility] for urgent related problems. Does the patient have an advance directive? No, Advance Directive brochure offered, patient declined. Pt was on BCP which she took inconsistently. Pt was also taking topamax and has concerns with babies development due to this. I told pt we will be referring her to [facility] already due to her health history and they will address those concerns with scans and testing. Pt also has concerns with her weightshe has been on maintenance prednisone and had gained 20lbs from a couple months ago. I discussed with pt that she may need early glucola and we can always discuss having her see a shingle bolt cutter. Pt doessee pulmonology to monitor her asthma Fob had baby blue syndrome at and had heart surgery in infancy pt still has some arrhythmia'swith heart. Fob has no other children outside of this . Fob has history of testing positive gential herpes and takes daily antivirals Fariha Mckeon LPN documented in this encounter Plan of Treatment Upcoming Encounters Date Type Department Care Team (Late st Contact Info) Description 07/07/2023 8:15 AM EST Imaging Radiology [facility] [address] [place] [address] 07/07/2023 9:30 AM EST Office Visit Gynecology/Obstetrics [facility] [address] [place] [address] [place], ESTUARDO Brown [address] [place] [address] 07/27/2023 9:00 AM EST Nurse Only Pulmonary Medicine, [facility] [address] [place] [address] Gw, Nurse Pulmonary [address] [place] [address] Health Maintenance Due Date Last Done Comments [...] this encounter Medical Devices Implanted Type Area Oil Burner Mechanic Device Identifier Shelf Expiration Date Model / Serial / Lot Suture Cinch Long - [id number] Implanted:Qty : 1 on 12/16/[address] MD at OR [facility] N/A: Esophagus [employer] 07/15/2024 [facility]-C01-21 3-L / / [id number] documented as of this encounter Visit Diagnoses Diagnosis Early stage of - Primary documented in this encounter Advance Directives [...] the patient have Health Care Power of Air Force Senior Officer? No Care Teams Industrial Economist Relationship Specialty Start Date End Date Lynette Jorge DO [address] [place] [address] PCP - General Family Medicine 06/25/16 documented as of this encounter
--- OUTSIDE RECORDS SUMMARY | 2023-07-26 18:23 | External Medical Summary ---
Author Name Unknown Address Unknown Organization K01:LABORATORY [facility] - [address] [place] [address] Laboratory Report Ordering Provider Test Date Status GUSTABO BILLINGSLEY 07/07/2023 10:30:30 Final Observation Date Value Abnormality Reference (Units ) Status ABO 07/07/2023 10:30:30 O Final RH 07/07/2023 10:30:30 Positive Final RED BLOOD CELL ANTIBODY SCREEN 07/07/2023 10:30:30 Negative Final SPECIMEN EXPIRATION DATE 07/07/2023 10:30:30 07/10/2023 23:59 Final Performing Location LABORATORY [facility] - [address] [place] [address]
--- OUTSIDE RECORDS SUMMARY | 2023-07-26 18:23 | External Medical Summary | Summary of Care ---
Author Name Unknown Organization [facility] Address [address] [place] [address] Phone [phone] Care Team Providers Care Seating And Mobility Technologist Name Role Phone Lynette Jorge DO Primary Care Provider [phone] Reason for Referral * Evaluate & Treat - Unlimited Visits (Within 10 days (routine)) - Pending Review Specialty Diagnoses / Procedures Referred By Dena t Referred To Contact Neurology Diagnoses Neurologic disorder Jessica Omer CRNP [address] [place] [address] Referral ID Status Reason Start Date Expiration Date Visits Requested Visits Authorized [id number] Pending Review Specialty Services Required [phone] Question Answer Referral Priority Within 10 days (routine) Where should this appointment be scheduled? [facility] REFERRAL QUESTIONS Other Conditions Comments Hx idiopathic intracranial hypertension, demyelinating disorder; currently * Evaluate & Treat - Unlimited Visits (Within 10 days (routine)) - Pending Review Specialty Diagnoses / Procedures Referred By Contcale t Referred To Contact Obstetrics/Gynecology / Maternal Medicine Diagnoses High-risk in first trimester Family history of neural tube defect Family history of congenital heart defect History of section complicating History of delivery History of retained placenta in prior , currently History of Maternal asthma complicating Neurologic disorder Obesity in , antepartum Jessica Omer CRNP [address] [place] [address] Referral ID Status Reason Start Date Expiration Date Visits Requested Visits Authorized [id number] Pending Review Specialty Services Required [phone] Question Answer Referral Priority Within 10 days (routine) Has the patient had a viability scan? Yes Date performed 07/07/2023 Location performed Radiology Reason for referral Maternal medical condition, Family history in 1st degree relative Please provide additional details severe asthma; FOB congenital cardiac defect; maternal hx intracranial hypertension Where should this appointment be scheduled? [facility] Comments /Para: LMP: Patient's last menstrual period was 05/04/2023. Patient is . CARMELA: 02/13/2024, by Ultrasound Pre-Gravid BMI: 30.45 Reason for Visit * Reason Comments New Visit Encounter Details Date Type Department Care Team ([facility] Contact Info) Description 07/07/2023 9:30 AM EST Office Visit [facility] [address] [place] [address] Jessica Omer CRNP [address] [place] [address] High-risk in first trimester*; Family history of neural tube defect; Family history of congenital heart defect; History of section complicating ; History of delivery; History of retained placenta in prior , currently ; History of ; Maternal asthma complicating ; Neurologic disorder; Obesity in , antepartum Allergies Active Allergy Reactions Criticality Noted Date [...] (OCEAN) 0.65 % nasal spray Administer 1 Copake into nostril 2 times a day. And as needed for nasal congestion. 30 mL 12 11/10/2018 Active Vit-Fe Bcg-BB-Ffgya (ONE-A-DAY WOMENS ) 28-0.8 & 223 MG [...] Inhalation Aerosol Powder Breath Activated (umeclidinium [place]) Inhale by mouth 1 Puff in the [...] MG Oral Capsule (Prometrium) 0 07/06/2023 Active famotidine (PEPCID) 20 MG TabletIndications: Gastroesophageal reflux disease without esophagitis Take 1 tablet by mouth twice daily 60 Tab 5 12/21/2019 3 Discontinue d(Medicatio n List Clean Up) Hospital, Clinic, or Other Facility Administered Medication Ordered Dose Route Frequency Start Date End Date Status Omalizumab (Xolair) inj 150 mgIndications:Severe persistent asthma without complication 150 mg SC [id number] 09/11/2022 Acti ve Albuterol Sulfate (Proventil) (2.5 [...] Diagnosed Date High-risk 07/07/2023 Maternal asthma complicating 3 Overview: Last ER visit 05/29/23 with exacerbation; [...] Asthma, severe persistent 07/22/2013 Overview: Admitted to [facility] for acute exacerbation on 10/08/18-10/11/18. Has been admitted monthly since last January. Takes deltasone 10mg daily GERD (gastroesophageal reflux disease) 3 Overview: Nissin fundoplication x2. Not on meds for GERD at time of NOB Last Assessment & Plan: Continue PARK GUIDE famotidine Estimated Date of Delivery Comme nts [...] getting steroids and breathing treatments. Continuing on PARK GUIDE inhalers and steroid 40mg daily. Pulmonary medicine [...] needs to see arlin Peña section in [place] on 10/01/16. RSV (respiratory syncytial virus infection) [...] have money to get more. Sometimes true Stout Depression Scale Answer Date Recorded Stout Depression Scale Total 8 07/07/2023 The thought [...] Sign Reading Time Taken Comments Blood Pressure 110/62 07/07/2023 9:05 AM EST Pulse - - Temperature - - Respiratory Rate - - Oxygen Saturation - - Inhaled Oxygen Concentration - - Weight 82.3 kg (181 lb 6.4 oz) 07/07/2023 9:05 A M EST Height 165.1 cm (5' 5") 07/07/2023 9:05 AM EST Body Mass Index 30.19 07/07/2023 9:05 AM EST documented in this [...] No 04/30/2019 documented as of this encounter Patient Instructions * Patient Instructions* Jessica Omer CRNP - 07/07/2023 9:38 AM EST For nausea/vomiting in : Vitamin B6 (10-25 mg) three times a day Doxylamine (Unisom) 25 mg at bedtime ?Eat as soon as you feel hungry, or even before you feel hungry ?Snack often and eat small meals - The best foods to eat have lots of protein or carbohydrates, butnot a lot of fat. Good choices are crackers, bread, and low- fat yogurt. You should also avoid spicyfoods. ?Drink cold, clear beverages that are either fizzy or sour - Good choices are lemonade and sharon deloris. ?Eat sharon-flavored lollipops ?Smell fresh lemon, mint, or orange ?Winona your teeth right after you eat ?Do not lie down right after you eat ?Take your vitamins at bedtime with a snack, not in the morning ?Avoid things that make you feel nauseous - That might include stuffy rooms, strong smells, hot places, loud noises, or not sleeping enough. Try to figure out if some foods and drinks stay down better than others. Avoid foods and drinks that seem to make you feel sick. This is different for different people. Should I see a doctor or nurse? -- See your doctor or nurse right away if you: ?Throw up every day or throw up over and over during the day. This is even more of a concern if there is blood in your vomit. ?Are losing weight ?Have pain or cramps in your belly ?Think you have lost too many fluids. This is called dehydration. Signs include not urinatingvery much, having dark yellow urine, or feeling dizzy when you stand up. If you cant keep anything down, you might need to be given fluids through a tube that is put into one of your veins, called an IV. Plus, you might need to get a medicine to prevent nausea and vomiting. documented in this encounter Progress Notes * Jessica Omer CRNP - 07/07/2023 10:03 AM EST CC: NOB HPI: Marianne Valenzuela is a 33 year old female here for initial OB exam. CARMELA 02/13/24 by U/S. Was on OCPs at time of conception, missed 2 pills. Accepting of , partner involved. She is taking vitamins. She plans to breastfeed infant. Reviewed PMH, social hx, family hx, surgical hx, ob hx with patient. Pertinent positives: - severe asthma, most recently seen in the ER at [facility] a month ago. Follows with pulmonology (last visit 06/01/23), did receive a seasonal flu shot this year. On prednisone now for exacerbation, and has albuterol inhaler to use prn. Takes Symbicort, Ellipta daily; receives Xolair injections monthly. - C/S x2 - first was at 32 weeks due to bradycardia secondary to maternal asthma attack. Second was at term due to breech presentation. She had a successful full term with her 3rd delivery. She was on prednisone frequently during her 3rd due to asthma - was never diagnosed withGDM, but did check blood sugars regularly. Had a retained placenta resulting in a D&C - She reports taking progesterone with her last 2 pregnancies, started it recently. Prior delivery was not spontaneous; can discuss continuation of this with MFM. - FOB born with transposition of the great vessels, had cardiac surgery as an infant. - Pt's aunt with spina bifida; pt's sister had a complicated by spina bifida. - Pt has a history of idiopathic intracranial hypertension; last saw neurology in 2018. Reports hx of demyelinating disorder, was ruled out for MS. Was taking Topamax for migraine prevention until knowledge of . - She denies tobacco use, partner is a social smoker. Advised to avoid 2nd hand smoke due to asthma. Current symptoms: nausea/food aversions. Keeping down fluids. No bleeding/severe cramping. Some breast tenderness. Discussed Qnatal and Quad screen. Reviewed current medications with patient. Last pap smear 05/2021. Stout Depression Scale: Stout Depression Scale Total: 8 Stout suicide question and score: Score of 3 = Yes, quite often. Score of 2 = Sometimes. Score of 1 = Hardly ever The thought of harming myself has occurred to me.: 0 OB History Para Term AB Living 4 3 2 1 0 3 SAB IAB Ectopic Multiple Live Births 0 0 0 0 3 # Outcome Date GA Lbr Gulshan/2nd Weight Sex Delivery Anes PTL Lv 4 Current 3 Term 05/13/19 39w2d 00:17 / 01:10 3.598 kg (7 lb 14.9 oz) F Vag-Spont EPI N CRISTIANE Comments: left foot internally rotated 2 Term 10/01/16 39w0d 3.408 kg (7 lb 8.2 oz) M CS-LTranv Spinal N CRISTIANE Comments: fob#1 c/s breech 1 03/12/15 32w1d 1.984 kg (4 lb 6 oz) M CS-Unspec Gen N CRISTIANE Comments: FOB #1. Maternal asthma attack- observed bradycardia- emergent under general anesthesia completed. Denies problems ; no PPD. Complications: Intolerance Past Medical History: Diagnosis Date Allergic rhinitis 08/08/2013 Asthma 1990 Symptoms at ; diagnosed at 3mths. Asthma, moderate persistent 07/22/2013 Admitted at [facility] 08/06/16-08/25/16 during third trimester of with +RSV exacerbating asthma,using O2 via nasal cannula at night to keep O2 sats >95%. Planning repeat growth sono with MFM @36wks Demyelinating disease (HCC) 06/08/201705/26 seeing neuro, abnormal MRI however MS workup neg GERD (gastroesophageal reflux disease) 1991 Diagnosed at 3mths of age. History of blood transfusion Multiple with GI problems & SX Hypokalemia 17 y/o while in hospital with continuous neb, went in to arrhythmia Idiopathic intracranial hypertension 06/08/2017 denies any recent headaches 10/2018 Intestinal adhesions 2009 SX done to remove adhesions & small part of liver removed. Intracranial hypertension Iron deficiency anemia 08/09/2016 Migraine headache Ovarian cyst 2019 Previous section 04/15/2016 Delivered in [place] at 32 weeks. Records received, confirming LTCS. Report sent to scanning. Vocal cord dysfunction age 16 Vocal cords inflamed from stomach acid; SX resolved issues. 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 Vaping Use Vaping Use: Never used Substance and Sexual Activity Alcohol use: Yes Comment: rare Drug use: No Comment: Denies never ever using illicit drugs. Sexual activity: Yes Partners: Male Social History Narrative No pets Mold levels elevated in the home. Mold testing showed 600. Central air conditioning. Social Determinants of Health Food Insecurity: Food Insecurity Present (07/07/2023) Hunger Vital Sign Worried About Running Out of Food in the Last Year: Never true Ran Out of Food in the Last Year: Sometimes true Past Surgical History: Procedure Laterality Date DELIVERY 2014 DELIVERY ONLY W/ N/A 10/01/2016 DELIVERY AND CARE performed by Matt Hanson Jr., MD at OB [facility] DILATION AND CURETTAGE (D&C) 2011 menorrghia from OCP EGD, FLEXIBLE, DIAGNOSTIC 06/20/2021 bienvenido fundoplication found/esophageal ulcer/TIF not performed/repeat 2 months/ESOPHAGOGASTRODUODENOSCOPY (EGD), FLEXIBLE, TRANSORAL, DIAGNOSTIC performed by Ave Temple MD at [facility] EGD, FLEXIBLE, DIAGNOSTIC N/A 12/16/2021 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, treated with APC/bienvenido fundoplication found/ESOPHAGOGASTRODUODENOSCOPY (EGD), FLEXIBLE, TRANSORAL, DIAGNOSTIC performed by Ave Temple MD at [facility] EGD, FLEXIBLE, DIAGNOSTIC 04/24/2021 normal / [facility] ESOPHAGOGASTRIC FUNDOPLASTY 1991; 2009 Bienvenido x 2 HYSTEROSCOPY W/BIOPSY AND/OR POLYPECTOMY W/WO D&C N/A 06/06/2021 HYSTEROSCOPY WITH BIOPSY AND/OR POLYPECTOMY WITH OR WITHOUT D&C performed by Deisy Chun MD at [facility] Current Outpatient Medications Medication Sig Dispense Refill polyethylene glycol 3350 (MIRALAX) packet Take 1 Packet by mouth daily. (Patient taking differently: Take 1 Packet by mouth daily as needed.) 14 Each 0 saline (OCEAN) 0.65 % nasal spray Administer 1 Copake into nostril 2 times a day. And as needed for nasal congestion. 30 mL 12 Vit-Fe Rba-TS-Parej (ONE-A-DAY WOMENS ) 28-0.8 & 223 MG MISC Take 1 Tab by mouth daily. Fluticasone Propionate 50 MCG/ACT Nasal Suspension (Flonase) Administer 2 Sprays into each nostril daily. 18.2 mL 11 oxygen IN GAS Use as directed. 2 lpm as needed Incruse Ellipta 62.5 MCG/INH Inhalation Aerosol Powder Breath Activated (umeclidinium [place]) Inhale by mouth 1 Puff in the morning. 30 Each 4 Omalizumab 150 MG Subcutaneous Solution Reconstituted (Xolair) Inject 300 mg under the skin every 4weeks. 2.4 mL 11 Albuterol Sulfate (2.5 MG/3ML) 0.083% Inhalation Nebulization [...] with food, as instructed.. 35 Tablet 5 Progesterone 200 MG Oral Capsule (Prometrium) Loratadine 10 MG Oral Tablet (Claritin) 1 Tablet. guaiFENesin ER 600 MG Oral Tablet Extended Release 12 Hour Take 1 Tablet by mouth 2 times a day as needed for Congestion. Take with plenty of water. Do not cut, crush or chew 40 Tablet 2 Nucala 100 MG/ML Subcutaneous Solution Auto-injector (Mepolizumab) Inject 1 mL under the skin every4 weeks. 1 mL 12 Current Facility-Administered Medications Medication Dose Route Frequency [...] redness, itching, asthma Nickel Rash Trimethoprim Hives Family History Problem Relation Age of Onset Lupus Mother Asthma Father in childhood Other (PCOS) Sister Lymphoma Brother HIV; Lymphatic cancer Liver disease Brother No Past Hx Grandmother (Maternal) Hypertension Grandfather (Maternal) Asthma Grandmother (Paternal) childhood No Past Hx Grandfather (Paternal) Autism Son No Past Hx Son Other (spina bifida) Aunt (Unspecified) maternal aunt Asthma Uncle (Unspecified) 3 paternal ROS: General: no fevers, chills CV: no chest pain, SOB. Cough due to asthma. GI: no constipation, diarrhea, + nausea Breast: no masses, nipple discharge, + tenderness : no vaginal bleeding, unusual vaginal discharge, dysuria Psychological: no anxiety, depression, SI/HI PHYSICAL EXAM: please see physical Environmental Remediation Consultant Documentation Provider requested botany technician. Name of botany technician: Velma Balderrama LPN ASSESSMENT/PLAN: High-risk in first trimester (Primary) - CULTURE, URINE, QUANTITATIVE; Future; Expected date: 07/07/2023 - TYPE AND SCREEN; Future; Expected date: 07/07/2023 - RUBELLA IGG ANTIBODY; Future; Expected date: 07/07/2023 - HEPATITIS B SURFACE ANTIGEN; Future; Expected date: 07/07/2023 - HIV ANTIGEN & ANTIBODY SCREEN W/ CONFIRMATION; Future; Expected date: 07/07/2023 - CHLAMYDIA TRACHOMATIS AND NEISSERIA GONORRHOEAE, AMPLIFIED PROBE - CBC WITH WBC DIFFERENTIAL AND ANEMIA REFLEX WORKUP; Future; Expected date: 07/07/2023 - HEPATITIS C ANTIBODY SCREEN WITH PROGRESSION TO HEPATITIS C RNA QUANTITATIVE; Future; Expected date: 07/07/2023 - SYPHILIS ANTIBODY SCREEN WITH REFLEX TO RPR; Future; Expected date: 07/07/2023 - M US MATERNAL 1ST FETUS; Future; Expected date: 07/07/2023 - MATERNAL MEDICINE REFERRAL OP Family history of neural tube defect - MFM US MATERNAL 1ST FETUS; Future; Expected date: 07/07/2023 - MATERNAL MEDICINE REFERRAL OP Family history of congenital heart defect - MFM US MATERNAL 1ST FETUS; Future; Expected date: 07/07/2023 - MATERNAL MEDICINE REFERRAL OP History of section complicating - MFM US MATERNAL 1ST FETUS; Future; Expected date: 07/07/2023 - MATERNAL MEDICINE REFERRAL OP History of delivery - MFM US MATERNAL 1ST FETUS; Future; Expected date: 07/07/2023 - MATERNAL MEDICINE REFERRAL OP History of retained placenta in prior , currently - MFM US MATERNAL 1ST FETUS; Future; Expected date: 07/07/2023 - MATERNAL MEDICINE REFERRAL OP History of - MFM US MATERNAL 1ST FETUS; Future; Expected date: 07/07/2023 - MATERNAL MEDICINE REFERRAL OP Maternal asthma complicating - MFM US MATERNAL 1ST FETUS; Future; Expected date: 07/07/2023 - MATERNAL MEDICINE REFERRAL OP - does not have a follow up appt with stringing machine tender - will schedule Neurologic disorder - MFM US MATERNAL 1ST FETUS; Future; Expected date: 07/07/2023 - MATERNAL MEDICINE REFERRAL OP - NEUROLOGY REFERRAL OP - recommend follow up in Obesity in , antepartum - 50-G GESTATIONAL GLUCOSE, 1 HOUR; Future; Expected date: 07/07/2023 - MFM US MATERNAL 1ST FETUS; Future; Expected date: 07/07/2023 - MATERNAL MEDICINE REFERRAL OP - offered/declined inside sales assistant referral at this time Follow Up: Return in about 4 weeks (around 08/04/2023) for high school music teacher - 30 mins. | For: high riskOB - 30 mins | Check-out note: Lab today, please schedule 1 hr glucose test. Needs to schedule apptw/pulmonary provider and with neurology - Discussed timing of routine OB care - already received flu vaccine - Offered genetic screening and explained that screening does not provide a definitive diagnosis. Patient is interested in Qnatal and MSAFP; advised to check insurance coverage and notify office. Reviewed timing of tests. - Recommended clean healthy diet and discussed foods/drinks to avoid in . Discussed recommend weight gain in . - Counseled on OTC measures to help alleviate nausea and advised to call if these are ineffective - Recommended daily vitamin. - Discussed labs as ordered and instructed patient to present to lab following appointment. - MFM referral discussed - RTO in 4 weeks for ZUNILDA COHEN with concern ESTUARDO Mathews documented in this encounter Plan of Treatment Upcoming Encounters Date Type Department Care Team (Late st Contact Info) Description 07/07/2023 11:10 AM EST Laboratory Laboratory, [facility] [address] [place] [phone] Hong Vigil [facility] [address] High-risk in first trimester 07/09/2023 9:00 AM EST Office Visit Neurology [facility] [address] [facility] [place] [address] Yen Jordan MD [address] [facility] [place] [address] 07/27/2023 9:00 AM EST Nurse Only Pulmonary Medicine, [facility] [address] [facility] [address] G[facility], [facility] [address] [facility] [address] 08/07/2023 9:00 AM EST Laboratory Laboratory, [facility] [address] [facility] [phone] Hong Vigil [facility] [address] [facility] [address] 08/07/2023 9:30 AM EST Office Visit Gynecology/Obstetric s [facility] [address] [place] [address] Zunilda Carmen CRNP [address] [facility] [place] [address] 09/28/2023 11:40 AM EST Office Visit Pulmonary Medicine, [facility] [address] [facility] [place] [address] Ruel Domínguez, DO [address] [facility] [address] Pending Results Name Type Priority Associated Diagnoses Date /Time CULTURE, URINE, QUANTITATIVE Lab Routine High-risk in first trimester 07/07/2023 10:16 AM EST TYPE AND SCREEN Lab Routine High-risk in first trimester 07/07/2023 10:30 AM EST RUBELLA IGG ANTIBODY Lab Routine High-risk in first trimester 07/07/2023 10:30 AM EST HEPATITIS B SURFACE ANTIGEN Lab Routine High-risk in first trimester 07/07/2023 10:30 AM EST HIV ANTIGEN & ANTIBODY SCREEN W/ CONFIRMATION Lab Routine High-risk in first trimester 07/07/2023 10:30 AM EST CHLAMYDIA TRACHOMATIS AND NEISSERIA GONORRHOEAE, AMPLIFIED PROBE Lab Routine High-risk in first trimester 07/07/2023 10:16 AM EST CBC WITH WBC DIFFERENTIAL AND ANEMIA REFLEX WORKUP Lab Routine High-risk in first trimester 07/07/2023 10:30 AM EST HEPATITIS C ANTIBODY SCREEN WITH PROGRESSION TO HEPATITIS C RNA QUANTITATIVE Lab Routine High-risk in first trimester 07/07/2023 10:30 AM EST SYPHILIS ANTIBODY SCREEN WITH REFLEX TO RPR Lab Routine High-risk in first trimester 07/07/2023 10:30 AM EST Scheduled Orders Name Type Priority Associated Diagnoses Orde r Schedule CULTURE, URINE, QUANTITATIVE Lab Routine High-risk in first trimester Expected: 07/07/2023 (Approximate), Expires: 07/07/2024 TYPE AND SCREEN Lab Routine High-risk in first trimester Expected: 07/07/2023 (Approximate), Expires: 08/06/2024 RUBELLA IGG ANTIBODY Lab Routine High-risk in first trimester Expected: 07/07/2023 (Approximate), Expires: 07/07/2024 HEPATITIS B SURFACE ANTIGEN Lab Routine High-risk in first trimester Expected: 07/07/2023 (Approximate), Expires: 07/07/2024 HIV ANTIGEN & ANTIBODY SCREEN W/ CONFIRMATION Lab Routine High-risk in first trimester Expected: 07/07/2023 (Approximate), Expires: 07/07/2024 CBC WITH WBC DIFFERENTIAL AND ANEMIA REFLEX WORKUP Lab Routine High-risk in first trimester Expected: 07/07/2023 (Approximate), Expires: 07/07/2024 HEPATITIS C ANTIBODY SCREEN WITH PROGRESSION TO HEPATITIS C RNA QUANTITATIVE Lab Routine High-risk in first trimester Expected: 07/07/2023 (Approximate), Expires: 07/07/2024 SYPHILIS ANTIBODY SCREEN WITH REFLEX TO RPR Lab Routine High-risk in first trimester Expected: 07/07/2023 (Approximate), Expires: 07/07/2024 50-G GESTATIONAL GLUCOSE, 1 HOUR Lab Routine Obesity in , antepartum Expected: 07/07/2023 (Approximate), Expires: 07/07/2024 MFM US MATERNAL 1ST FETUS Medical Imaging Routine High-risk in first trimester Family history of neural tube defect Family history of congenital heart defect History of section complicating History of delivery History of retained placenta in prior , currently History of Maternal asthma complicating Neurologic disorder Obesity in , antepartum Expected: 07/07/2023, Expires: 08/06/2024 Scheduled Referrals Name Type Priority Associated Diagnoses Orde r Schedule MATERNAL MEDICINE REFERRAL OP Referral Within 10 days (routine) High-risk in first trimester Family history of neural tube defect Family history of congenital heart defect History of section complicating History of delivery History of retained placenta in prior , currently History of Maternal asthma complicating Neurologic disorder Obesity in , antepartum Ordered: 07/07/2023 NEUROLOGY REFERRAL OP Referral Within 10 days [...] this encounter Medical Devices Implanted Type Area Certified Surgical First Assistant Device Identifier Shelf Expiration Date Model / Serial / Lot Suture Cinch Long - [id number] Implanted:Qty : 1 on 12/16/[address] MD at OR [facility] N/A: Esophagus [employer] 07/15/2024 [facility]-C01-21 3-L / / [id number] documented as of this encounter Visit Diagnoses Diagnosis High-risk in first trimester- Primary Family history of neural tube defect Family history of other neurological diseases Family history of congenital heart defect Family history of congenital anomalies History of section complicating Previous delivery, unspecified as to episode of care or not applicable History of delivery History of retained placenta in prior , currently with other poor obstetric history History of Personal history of other genital system and obstetric disorders Maternal asthma complicating Other current maternal conditions classifiable elsewhere, complicating , childbirth, or the puerperium, unspecified as to episode of care Neurologic disorder Unspecified disorders of nervous system Obesity in , antepartum Obesity complicating , childbirth, or the puerperium, antepartum condition or complication High-risk in first trimester documented in this [...] the patient have Health Care Power of Fisher Reef Net? No Care Teams Seating And Mobility Technologist Relationship Specialty Start Date End Date Lynette Jorge DO [address] [facility] [place] [address] PCP - General Family Medicine 06/25/16 documented as of this encounter
--- OUTSIDE RECORDS SUMMARY | 2023-07-26 18:23 | External Medical Summary ---
Author Name Unknown Address Unknown Organization [id number]:LABORATORY [facility] [address] [place] [address] Laboratory Report Ordering Provider Test Date Status MICHEAL HESTER 07/07/2023 10:30:00 Final Observation Date Value Abnormality Reference (Units ) Status BUN 07/07/2023 10:30:00 10 6-20 (mg/dL) Final Creatinine 07/07/2023 10:30:00 0.8 0.5-1.0 (mg/dL) Final Glomerular filtration rate/1.73 sq M.predicted [Volume Rate/Area] in Serum, Plasma or Blood by Creatinine-based formula (CKD-EPI) 07/07/2023 10:30:00 >90 >=60 (mL/min) Final eGFR is calculated based on the CKD-EPI 2020 equation SODIUM 07/07/2023 10:30:00 136 135-146 (m mol/L) Final Potassium 07/07/2023 10:30:00 4.1 3.5-5.1 (m mol/L) Final Cl 07/07/2023 10:30:00 101 98-107 (mm ol/L) Final CO2 07/07/2023 10:30:00 25 22-32 (mmo l/L) Final Anion gap 07/07/2023 10:30:00 10 7-15 (mmol /L) Final Glucose 07/07/2023 10:30:00 77 70-120 (mg /dL) Final Calcium 07/07/2023 10:30:00 9.9 8.4-10.2 ( mg/dL) Final Performing Location LABORATORY [facility] [address] [place] [address]
--- OUTSIDE RECORDS SUMMARY | 2023-07-26 18:23 | External Medical Summary | Summary of Care ---
Author Name Unknown Organization [facility] Address [address] [place] [address] Phone [phone] Care Team Providers Care Dormitory Counselor Name Role Phone Lynette Jorge DO Primary Care Provider [phone] Reason for Visit * Reason Onset Date Comments Precert Pending 06/02/2023 Nucala Encounter Details Date Type Department Care Team (Late st Contact Info) Description 06/02/2023 Telephone Pulmonary Medicine, [place] [address], [place] [phone] Mann Nunez MD [address], [place] [phone] Precert Pending (Nucala ) Allergies Active Allergy Reactions Criticality [...] (OCEAN) 0.65 % nasal spray Administer 1 [place] into nostril 2 times a day. And as needed for nasal congestion. 30 mL 12 9 Active Vit-Fe Vac-QV-Kkjnw (ONE-A-DAY WOMENS ) 28-0.8 & 223 MG [...] MCG/INH Inhalation Aerosol Powder Breath Activated (umeclidinium [place]) Inhale by mouth 1 Puff in the [...] persistent asthma without complication 150 mg SC [id number] 09/11/2022 Acti ve Albuterol Sulfate (Proventil) (2.5 [...] Asthma, severe persistent 07/22/2013 Overview: Admitted to [facility] for acute exacerbation on 10/08/18-10/11/18. Has been admitted monthly since last January. Takes deltasone 10mg daily GERD (gastroesophageal reflux disease) 3 Overview: Nissin fundoplication x2. Not on meds for GERD at time of NOB Last Assessment & Plan: Continue RECEIVER SETTER famotidine documented as of this encounter (statuses [...] getting steroids and breathing treatments. Continuing on RECEIVER SETTER inhalers and steroid 40mg daily. Pulmonary medicine [...] in to arrhythmia Single liveborn, born in [facility], delivered by section 10/03/2016 01/07/2017 INFORMATION 09/09/2016 01/07/2017 Overview: Pt needs to see arlin Peña section in [place] on 10/01/16. RSV (respiratory syncytial virus infection) [...] trimester screening 10/26/2014 , normal first 09/07/2014 0901/2016 Overview: MFM referral placed for FTS-negative Offer [...] in the Last Year Never true 03/31/2019 [place] Depression Scale Answer Date Recorded [place] Depression Scale Score 3 02/15/2020 The thought [...] PA yet. Thank you Susanna Magana CPhT Office Engineer [facility] Special[facility] RX 06/25/2023,1:10 PM. * Telephone Encounter - Faviola Mora CPhT - 06/16/2023 2:10 PM EST Checking on the status of the pa for the Nucala, please advise Thank you Faviola Mora Office Engineer III [facility] 06/16/2023,2:10 PM * Telephone Encounter - Hue Houser [facility] - 06/04/2023 2:52 PM EDT Please see Pulmonary pre-cert request for Mepolizumab (Nucala) 100mg/ml Pen - 100mg every 4 weeks .- route referral message with approval, denial or questions back to Pulmonary Pharmacist [place] [id number]. Current Asthma Medications: Controller(s): - Symbicort 160-4.5 [...] 0.44 ! Birch IgE <0.10 kUa/L <0.10 [place] Maple IgE <0.10 kUa/L <0.10 [place] IgE <0.10 kUa/L <0.10 Elm IgE <0.10 kUa/L <0.10 [place] IgE <0.10 kUa/L <0.10 Pecan [place] IgE <0.10 kUa/L <0.10 [place] Tree IgE <0.10 kUa/L <0.10 White Anthony IgE <0.10 kUa/L <0.10 Cocklebur IgE <0.10 kUa/L <0.10 Common Ragweed IgE <0.10 kUa/L 0.33 Swedish Plantain IgE <0.10 kUa/L <0.10 Cook's Quarter IgE <0.10 kUa/L <0.10 Mugwort IgE <0.10 kUa/L <0.10 Pigweed IgE <0.10 kUa/L <0.10 Sheep [place] IgE <0.10 kUa/L <0.10 !: Data is [...] uncomplicated J45.50 Location: [facility]: Route pre-cert request to [facility]. Referral to pharmacist for: Clinical co-management. Medication(s) Tried/Failed/Contraindicated: Xolair See corresponding visit note(s) for additional supporting clinical information. Office Information: Prescriber: Dr. Nunez documented in this encounter Plan of Treatment Upcoming Encounters Date Type Department Care Team (Late st Contact Info) Description 07/01/2023 10:15 AM EST Nurse Only Gynecology/Obstetrics [facility] [address] [facility] [place] [address] Jt, Nurse Missile Facilities Repairer [facility] [address] [facility] [place] [address] 07/07/2023 8:15 AM EST Imaging Radiology [facility] [address] [facility] [place] [address] 07/07/2023 9:30 AM EST Office Visit Gynecology/Obstetrics [facility] [address] [facility] [place] [address] Backer, ESTUARDO Brown [address] [facility] [place] [address] 07/27/2023 9:00 AM EST Nurse Only Pulmonary Medicine, [facility] [address] [facility] [place] [address] Jt, Nurse Pulmonary [facility] [place] [address] Health Maintenance Due Date Last Done Comments [...] this encounter Medical Devices Implanted Type Area Watch Crystal Edge Grinder Device Identifier Shelf Expiration Date Model / Serial / Lot Suture Cinch Long - [id number] Implanted:Qty : 1 on 12/16/[address] MD at OR [facility] N/A: Esophagus [employer] 07/15/[address] [facility]-C01-21 3-L / / [id number] documented as of this encounter Advance Directives Latest Code Status on File Code Status Date Activated Date Inactivated Comments Full Code 06/06/2021 8:25 AM 06/06/2021 1:50 PM Th is order reflects the patients wishes and were [...] the patient have Health Care Power of Quality Compliance Consultant? No Care Teams Dormitory Counselor Relationship Specialty Start Date End Date Lynette Jorge DO [address] [address] PCP - General Family Medicine 06/25/16 documented as of this encounter
--- OUTSIDE RECORDS SUMMARY | 2023-07-26 18:23 | External Medical Summary ---
Author Name Unknown Address Unknown Organization K01:LABORATORY [facility] [address] [place] [address] Laboratory Report Ordering Provider Test Date Status GUSTABO BILLINGSLEY 07/07/2023 10:16:51 Final Observation Date Value Abnormality Reference (Units ) Status Chlamydia trachomatis rRNA [Presence] in Specimen by JEFRY with probe detection 07/07/2023 10:16:51 Negative Negative Final No Chlamydia trachomatis det ected by park manager-mediated nucleic acid amplification. Neisseria gonorrhoeae rRNA [ Presence] in Specimen by JEFRY with probe detection 07/07/2023 10:16:51 Negative Negative Final No Neisseria gonorrhoeae det ected by park manager-mediated nucleic acid amplification. Performing Location LABORATORY [facility] - [address] [place] [address]
--- OUTSIDE RECORDS SUMMARY | 2023-07-26 18:23 | External Medical Summary | Summary of Care ---
Author Name Unknown Organization [facility] Address [address] [place] [address] Phone [phone] Care Team Providers Care Volunteer Services Manager Name Role Phone Ania Lynette Alejandro GUPTA Primary Care Provider [phone] Reason for Visit * Reason Onset Date Comments Precert Denied 06/02/2023 Nucala Encounter Details Date Type Department Care Team (Late st Contact Info) Description 06/02/2023 Telephone Pulmonary Medicine, [place] [address] [place] [address] Mann Nunez MD [address] [place] [address] Precert Denied (Nucala ) Allergies [...] (OCEAN) 0.65 % nasal spray Administer 1 [place] into nostril 2 times a day. And as needed for nasal congestion. 30 mL 12 9 Active Vit-Fe Msd-HN-Qggku (ONE-A-DAY WOMENS ) 28-0.8 & 223 MG [...] MCG/INH Inhalation Aerosol Powder Breath Activated (umeclidinium [place]) Inhale by mouth 1 Puff in the [...] persistent asthma without complication 150 mg SC [id number] 09/11/2022 Acti ve Albuterol Sulfate (Proventil) (2.5 [...] Asthma, severe persistent 07/22/2013 Overview: Admitted to [facility] for acute exacerbation on 10/08/18-10/11/18. Has been admitted monthly since last January. Takes deltasone 10mg daily GERD (gastroesophageal reflux disease) 3 Overview: Nissin fundoplication x2. Not on meds for GERD at time of NOB Last Assessment & Plan: Continue FISH SMOKER famotidine documented as of this encounter (statuses [...] getting steroids and breathing treatments. Continuing on FISH SMOKER inhalers and steroid 40mg daily. Pulmonary medicine [...] INFORMATION 09/28/2018 12/21/2018 Overview: Taking prometrium at [facility] Obesity in , antepartum 09/28/2018 07/12/2019 [...] needs to see arlin Peña section in [place] on 10/01/16. RSV (respiratory syncytial virus infection) [...] any current needs or questions 09/29/2016 Hue uReda RN 09/29/2016 Problem Action Taken Date entered [...] in the Last Year Never true 03/31/2019 [place] Depression Scale Answer Date Recorded [place] Depression Scale Score 3 02/15/2020 The thought [...] auth. Contact plan to follow up on [id number] * Telephone Encounter - Susanna Magana CPhT - 06/25/2023 1:09 PM EST Madi, Just checking to see if there has been any progress on this PA yet. Thank you Susanna Magana CPhT Taco Maker [facility] Specialty RX 06/25/2023,1:10 PM. * Telephone Encounter - Faviola Mora CPhT - 06/16/2023 2:10 PM EST Checking on the status of the pa for the Nucala, please advise Thank you Faviola Mora Taco Maker III [facility] Rx 06/16/2023,2:10 PM * Telephone Encounter - Hue Houser, formerly [facility] - 06/04/2023 2:52 PM EDT Please see Pulmonary pre-cert request for Mepolizumab (Nucala) 100mg/ml Pen - 100mg every 4 weeks .- route referral message with approval, denial or questions back to Pulmonary Pharmacist [place] [phone]. Current Asthma Medications: Controller(s): - Symbicort 160-4.5 [...] 5 5 Each Marilyn Gallegos MD E [facility]/pharmacy #[id number]... PREDNISONE 10MG TAB(S) 08/15/2022 [...] 0.44 ! Birch IgE <0.10 kUa/L <0.10 [place] Maple IgE <0.10 kUa/L <0.10 [place] IgE <0.10 kUa/L <0.10 Elm IgE <0.10 kUa/L <0.10 [place] IgE <0.10 kUa/L <0.10 Pecan [place] IgE <0.10 kUa/L <0.10 [place] Tree IgE <0.10 kUa/L <0.10 [place] IgE <0.10 kUa/L <0.10 Cocklebur IgE <0.10 kUa/L <0.10 Common Ragweed IgE <0.10 kUa/L 0.33 [place] Plantain IgE <0.10 kUa/L <0.10 Cook's Quarter IgE <0.10 kUa/L <0.10 Mugwort IgE <0.10 kUa/L <0.10 Pigweed IgE <0.10 kUa/L <0.10 Sheep [place] IgE <0.10 kUa/L <0.10 !: Data is [...] - Severe persistent asthma, uncomplicated J45.50 Location: [facility]: Route pre-cert request to [facility]. Referral to pharmacist for: Clinical co-management. Medication(s) Tried/Failed/Contraindicated: Xolair See corresponding visit note(s) for additional supporting clinical information. Office Information: Prescriber: Dr. Nunez documented in this encounter Plan of Treatment Upcoming Encounters Date Type Department Care Team (Late st Contact Info) Description 07/01/2023 10:15 AM EST Nurse Only Gynecology/Obstetrics [facility] [address] [place] [address] Gw, Nurse Sample Preparation Supervisor New [address] [place] [address] 07/07/2023 8:15 AM EST Imaging Radiology [facility] [address] [place] [address] 07/07/2023 9:30 AM EST Office Visit Gynecology/Obstetrics [facility] [address] [place] [address] Backer, ESTUARDO Brown [address] [facility] [place] [address] 07/27/2023 9:00 AM EST Nurse Only Pulmonary Medicine, [facility] [address] [place] [address] Gw, Nurse Pulmonary [address] [place] [address] Health Maintenance Due Date Last Done Comments [...] this encounter Medical Devices Implanted Type Area Mushroom Press Operator Device Identifier Shelf Expiration Date Model / Serial / Lot Suture Cinch Long - [id number] Implanted:Qty : 1 on 12/16/[address] MD at OR [facility] N/A: Esophagus [employer] 07/15/2024 [facility]-C01-21 3-L / / [id number] documented as of this encounter Advance Directives [...] the patient have Health Care Power of Film Composer? No Care Teams Volunteer Services Manager Relationship Specialty Start Date End Date Lynette Jorge DO [address] [address] PCP - General Family Medicine 06/25/16 documented as of this encounter
--- OUTSIDE RECORDS SUMMARY | 2023-07-26 18:23 | External Medical Summary ---
Author Name Unknown Address Unknown Organization K01:[facility]ORY [facility] Juan Sequeira [facility] [address] Laboratory Report Ordering Provider Test Date Status GUSTABO BILLINGSLEY 07/07/2023 10:30:30 Final Observation Date Value Abnormality Reference (Units ) Status WBC, Total 07/07/2023 10:30:30 10.11 4.00-10.8 0 (K/uL) Final RBC 07/07/2023 10:30:30 4.89 3.85-5.15 (M/uL) Final Hemoglobin 07/07/2023 10:30:30 13.5 12.0-15.3 (g/dL) Final Anemia reflex testing trigge rs on a HGB < 12.0 for Females and HGB < 13.0 for Males in accordance with the WHO Anemia Guidelines
Anemia reflex testing triggers on a HGB < 12.0 for Females and HGB < 13.0 for Males in accordance with the WHO Anemia Guidelines HCT 07/07/2023 10:30:30 42.2 36.0-45.2 (%) Final MCV 07/07/2023 10:30:30 86.3 81.5-97.5 (fL) Final MCH 07/07/2023 10:30:30 27.6 27.0-34.0 (pg) Final MCHC 07/07/2023 10:30:30 32.0 32.0-36.0 (g/dL) Final RDW 07/07/2023 10:30:30 15.7 11.5-15.5 (%) Final Platelets 07/07/2023 10:30:30 341 140-400 (K /uL) Final MPV 07/07/2023 10:30:30 10.4 6.6-11.1 ( fL) Final Nucleated erythrocytes/100 leukocytes [Ratio] in Blood by Automated count 07/07/2023 10:30:30 0 <=0 (/100 WBCs) Fi [facility] Performing Location LAB[facility]ATORY [facility] - [address] [facility] [address]
--- OUTSIDE RECORDS SUMMARY | 2023-07-26 18:23 | External Medical Summary | Summary of Care ---
Author Name Unknown Organization [facility] Address [address] [place] [address] Phone [phone] Care Team Providers Care Well Shooter Name Role Phone Ania Lynette Alejandro GUPTA Primary Care Provider [phone] Reason for Visit * Reason Onset Date Comments Pre Cert/Prior Auth 06/02/2023 [facility] 06/29 Encounter Details Date Type Department Care Team (Late st Contact Info) Description 06/02/2023 Telephone Pulmonary Medicine, [facility] [address] [place] [address] Mann Nunez MD [address] [place] [address] Pre Cert/Prior Auth ([facility] 11... Allergies Active Allergy Reactions Criticality Noted Date [...] (OCEAN) 0.65 % nasal spray Administer 1 [place] into nostril 2 times a day. And as needed for nasal congestion. 30 mL 12 9 Active Vit-Fe Ldq-RZ-Fgpyq (ONE-A-DAY WOMENS ) 28-0.8 & 223 MG [...] MCG/INH Inhalation Aerosol Powder Breath Activated (umeclidinium [place]) Inhale by mouth 1 Puff in the [...] persistent asthma without complication 150 mg SC [id number] 09/11/2022 Acti ve Albuterol Sulfate (Proventil) (2.5 [...] Asthma, severe persistent 07/22/2013 Overview: Admitted to [facility] for acute exacerbation on 10/08/18-10/11/18. Has been admitted monthly since last January. Takes deltasone 10mg daily GERD (gastroesophageal reflux disease) 3 Overview: Nissin fundoplication x2. Not on meds for GERD at time of NOB Last Assessment & Plan: Continue HISTORY DEPARTMENT CHAIR famotidine documented as of this encounter (statuses [...] getting steroids and breathing treatments. Continuing on HISTORY DEPARTMENT CHAIR inhalers and steroid 40mg daily. Pulmonary medicine [...] 09/28/2018 12/21/2018 Overview: Taking prometrium at [facility] Obesity in , antepartum 09/28/2018 07/12/2019 Overview: BMI: 31.92 kg/m at NOB Pt desires nutrition consult as this is her highest weight, feels it to be associated with prednisone use Early 1hr gtt normal Hypokalemia 01/13/2017 01/13/2017 Overview: 15/16 y/o while in hospital with continuous neb, went in to arrhythmia Single liveborn, born in [facility], delivered by section 10/03/2016 01/07/2017 INFORMATION 09/09/2016 01/07/2017 Overview: Pt needs to see arlin Peña section in [facility] on 10/01/16. RSV (respiratory syncytial virus infection) [...] in the Last Year Never true 03/31/2019 [place] Depression Scale Answer Date Recorded [place] Depression Scale Score 3 02/15/2020 The thought [...] this PA yet. Thank you Susanna Magana cardiac/vascular sonographer Meter Tester Polyphase [facility] Special[facility] RX 06/25/2023,1:10 PM. * Telephone Encounter - Faviola Mora CPhT - 06/16/2023 2:10 PM EST Checking on the status of the pa for the Nucala, please advise Thank you Faviola Mora Meter Tester Polyphase III [facility] Specialty Rx 06/16/2023,2:10 PM * Telephone Encounter - Hue Houser RP - 06/04/2023 2:52 PM EDT Please see Pulmonary pre-cert request for Mepolizumab (Nucala) 100mg/ml Pen - 100mg every 4 weeks .- route referral message with approval, denial or questions back to Pulmonary Pharmacist [place] [phone]. Current Asthma Medications: Controller(s): - Symbicort 160-4.5 [...] 0.44 ! Birch IgE <0.10 kUa/L <0.10 [place] Maple IgE <0.10 kUa/L <0.10 [place] IgE <0.10 kUa/L <0.10 Elm IgE <0.10 kUa/L <0.10 [place] IgE <0.10 kUa/L <0.10 Pecan [place] IgE <0.10 kUa/L <0.10 [place] Tree IgE <0.10 kUa/L <0.10 [place] IgE <0.10 kUa/L <0.10 [place]lebur IgE <0.10 kUa/L <0.10 Common Ragweed IgE <0.10 kUa/L 0.33 [place] Plantain IgE <0.10 kUa/L <0.10 Cook's Quarter IgE <0.10 kUa/L <0.10 Mugwort IgE <0.10 kUa/L <0.10 Pigweed IgE <0.10 kUa/L <0.10 Sheep [place] IgE <0.10 kUa/L <0.10 !: Data is [...] - Severe persistent asthma, uncomplicated J45.50 Location: [facility]: Route pre-cert request to [facility]. Referral to pharmacist for: Clinical co-management. Medication(s) Tried/Failed/Contraindicated: Xolair See corresponding visit note(s) for additional supporting clinical information. Office Information: Prescriber: Dr. Nunez documented in this encounter Plan of Treatment Upcoming Encounters Date Type Department Care Team (Late st Contact Info) Description 07/01/2023 10:15 AM EST Nurse Only Gynecology/Obstetrics [facility] [address] [facility] [place] [address] Jt, Nurse Appliance Repairer New [address] [facility] [place] [address] 07/07/2023 8:15 AM EST Imaging Radiology [facility] [address] [facility] [place] [address] 07/07/2023 9:30 AM EST Office Visit Gynecology/Obstetrics [address] [place] [address] Backer, ESTUARDO Brown [address] [facility] [place] [address] 07/27/2023 9:00 AM EST Nurse Only Pulmonary Medicine, [facility] [address] [facility] [place] [address] Gw, Nurse Pulmonary Campbell [facility] [place] [address] Health Maintenance Due Date Last Done Comments [...] this encounter Medical Devices Implanted Type Area Buncher Machine Device Identifier Shelf Expiration Date Model / Serial / Lot Suture Cinch Long - [id number] Implanted:Qty : 1 on 12/16/[address] MD at OR [facility] N/A: Esophagus [employer] 07/15/2024 [facility]-C01-21 3-L / / [id number] documented as of this encounter Advance Directives [...] patient have Health Care Power of Dental Practitioner? No Care Teams Well Shooter Relationship Specialty Start Date End Date Lynette Jorge DO [address] [place] [address] PCP - General Family Medicine 06/25/16 documented as of this encounter
--- OUTSIDE RECORDS SUMMARY | 2023-07-26 18:23 | External Medical Summary ---
Author Name Unknown Address Unknown Organization K01:LABORATORY [place] [address] [facility] [address] Laboratory Report Ordering Provider Test Date Status GUSTABO BILLINGSLEY 07/07/2023 10:30:30 Final Observation Date Value Abnormality Reference (Units ) Status HIV 1+2 Ab+HIV1 p24 Ag [Presence] in Serum or Plasma by Immunoassay 07/07/2023 10:30:30 Negative Negative Final Negative HIV-1/2 antigen and antibody screening tset results usually indicate the absence of HIV-1 and HIV-2 infection. However, such negative results do not rule-out acute HIV infection. If acute HIV-1 infection is highly suspected, it is recommended that a specimen be submitted for detection of HIV-1 RNA. Performing Location LABORATORY [place] [address] [place] [address]
--- OUTSIDE RECORDS SUMMARY | 2023-07-26 18:23 | External Medical Summary ---
Author Name Unknown Address Unknown Organization K01:LABORATORY [facility] - [address] [place] [facility] Laboratory Report Ordering Provider Test Date Status GUSTABO BILLINGSLEY 07/07/2023 10:16:51 Final Observation Date Value Abnormality Reference (Units) Status Bacteria identified in Specimen by Culture 07/07/2023 10:16:51 No significant growth Final Test: Culture, Urine, Quanti tative
Specimen Source: Urine, Clean Catch
Specimen Type: Urine
Specimen Date: 07/07/2023 10:16 AM
Result Date: 07/08/2023 12:02 PM
Result Status: Final result
Resulting Lab: LABORATORY [facility]
[address]
[place] [address]

CULTURE

No significant growth

null Performing Location LABORATORY [facility] - [address] [facility] [address]
--- OUTSIDE RECORDS SUMMARY | 2023-07-26 18:24 | External Medical Summary | Summary of Care ---
Author Name Unknown Organization [facility] Address [address] [place] [address] Phone [phone] Care Team Providers Care Health And Safety Specialist Name Role Phone Lynette Jorge DO Primary Care Provider [phone] Encounter Details Date Type Department Care Team (Late st Contact Info) Description 06/11/2023 Telephone [facility] [address] [place] [address] Rene Mccloud MD [address] [place] [address] Allergies Active Allergy Reactions Criticality Noted Date Comments Bactrim Hives High 07/06/2013 Dust Cough High 07/06/2013 Sneezing, coughing, asthma Nickel Rash 03/19/2021 Other Allergy (See Comments) Itching,Wheezing Medium 07/06/2013 Grass- redness, itching, asthma Pollen Cough High 07/06/2013 Sneezing, cough, asthma Sulfa Antibiotics Hives High 07/06/2013 Trimethoprim Hives 05/24/2018 documented as of this encounter (statuses as of 06/11/2023) Medications Medication Sig Dispensed Refills Start Date End Date Status polyethylene glycol 3350 (MIRALAX) packet Take 1 Packet by mouth daily. 14 Each 0 10/12/2018 Active Additional Information Patient taking differently:17 g OralDAILY PRN, Informant: Patient, Reported on 09/22/2022 saline (OCEAN) 0.65 % nasal spray Administer 1 [place] into nostril 2 times a day. And as needed for nasal congestion. 30 mL 12 11/10/2018 Active Vit-Fe Pzi-YV-Frsjj (ONE-A-DAY WOMENS ) 28-0.8 & 223 MG MISC Take 1 Tab by mouth daily. 0 Active Iron-Vitamin C 65-125 MG Oral Tablet Take 1 Tablet by mouth in the morning. 0 Active famotidine (PEPCID) 20 MG TabletIndications:G astroesophageal reflux disease without esophagitis Take 1 tablet by mouth twice daily 60 Tab 5 12/21/2019 Active Montelukast Sodium 10 MG Oral Tablet (Singulair)Indicati ons:Severe persistent asthma without complication Take 1 Tab by mouth daily. 30 Tab 11 05/09/2020 Active Topiramate 50 MG Oral Tablet (topAMAX)Indication s:takes at night Take 1 Tablet by mouth in the morning and 1 Tablet before bedtime. 0 Active Fluticasone Propionate 50 MCG/ACT Nasal Suspension (Flonase)Indication s:Severe persistent asthma without complication Administer 2 Sprays into each nostril daily. 18.2 mL 11 01/03/2021 Active oxygen IN GAS Use as directed. 2 lpm as needed 0 Active Loratadine 10 MG Oral Tablet (Claritin) 1 Tablet. 0 04/24/2021 Active Omeprazole 20 MG Oral Capsule Delayed Release (PriLOSEC)Indicatio ns:Gastroesophageal reflux disease without esophagitis Take by mouth 1 Capsule in the morning. 90 Capsule 3 10/07/2021 Active Incruse Ellipta 62.5 MCG/INH Inhalation Aerosol Powder Breath Activated (umeclidinium [place]) Inhale by mouth 1 Puff in the [...] Sulfate (2.5 MG/3ML) 0.083% Inhalation Nebulization Solution (Proventil)Indicati ons:Severe persistent asthma without complication Inhale 1 Vial via nebulizer every 4 hours as needed for Wheezing or Shortness of Breath. 528 mL 2 09/11/2022 Active Fluticasone Propionate HFA 220 MCG/ACT Inhalation Aerosol (Flovent HFA) Inhale 2 Puffs by mouth every night at bedtime. with chamber. Rinse mouth after use. 12 g 6 09/11/2022 Active Budesonide-Formoter ol Fumarate 160-4.5 MCG/ACT Inhalation Aerosol (Symbicort)Indicati ons:Severe persistent asthma without complication Inhale 2 Puffs by mouth in the morning and 2 Puffs before bedtime. 30.6 g 2 12/09/2022 Active Albuterol Sulfate HFA 108 (90 Base) MCG/ACT Inhalation Aerosol SolutionIndications :Severe persistent asthma without complication INHALE 2 PUFFS [...] 4 weeks. 1 mL 12 06/02/2023 Active Doxycycline Hyclate 100 MG Oral Capsule TAKE 1 CAPSULE BY MOUTH TWICE A DAY FOR 7 DAYS 0 Active Progesterone 200 MG Oral Capsule (Prometrium) Administer 1 Capsule into the vagina every night at bedtime. 30 Capsule 3 06/08/2023 Active Hospital, Clinic, or Other Facility Administered Medication Ordered Dose Route Frequency Start Date End Date Status Omalizumab (Xolair) inj 150 mgIndications:Severe persistent asthma without complication 150 mg SC [id number] 09/11/2022 Acti ve Albuterol Sulfate (Proventil) (2.5 MG/3ML) 0.083% inhalation solution 2.5 mgIndications:Severe persistent asthma with (acute) exacerbation 2.5 mg NEBULIZER ONCE PRN 02/02/2023 Acti ve Albuterol Sulfate (Proventil) (2.5 MG/3ML) 0.083% inhalation solution 2.5 mgIndications:Severe persistent asthma with acute exacerbation 2.5 mg NEBULIZER PRN 01/27/2023 01/27/2024 Active documented as of this encounter (statuses as of 06/11/2023) Active Problems Problem Noted Date Diagnosed Date [...] Asthma, severe persistent 07/22/2013 Overview: Admitted to [facility] for acute exacerbation on 10/08/18-10/11/18. Has been admitted monthly since last January. Takes deltasone 10mg daily GERD (gastroesophageal reflux disease) 3 Overview: Nissin fundoplication x2. Not on meds for GERD at time of NOB Last Assessment & Plan: Continue INTERACTIVE MEDIA MARKETING DIRECTOR famotidine documented as of this encounter (statuses as of 06/11/2023) Resolved Problems Problem Noted Date Diagnosed Date [...] getting steroids and breathing treatments. Continuing on INTERACTIVE MEDIA MARKETING DIRECTOR inhalers and steroid 40mg daily. Pulmonary medicine [...] in to arrhythmia Single liveborn, born in [facility], delivered by section 10/03/2016 01/07/2017 INFORMATION 09/09/2016 01/07/2017 Overview: Pt needs to see arlin Peña section in [place] on 10/01/16. RSV (respiratory syncytial virus infection) [...] having any current needs or questions 03/17/2019 Heu Rueda RN 03/17/2019 Problem Action Taken Date [...] as of this encounter (statuses as of 06/11/2023) Immunizations Name Administration Dates Next Due H1N1 [...] in the Last Year Never true 03/31/2019 Marine Depression Scale Answer Date Recorded Marine Depression Scale Score 3 02/15/2020 The thought [...] or making decisions? (5 years old or older No 04/30/2019 documented as of this encounter Miscellaneous Notes * Telephone Encounter - Erin Holliday LPN - 06/11/2023 9:35 AM EDT Patient aware, stopping into the lab in the next 15 minutes. Denies any VB or spotting. * Telephone Encounter - Erin Holliday LPN - 06/11/2023 9:32 AM EDT ----- Message from Rene Parada MD sent at 06/11/2023 9:20 AM EDT ----- Please let her know BHCG increased slightly Recommended to repeat again today or tomorrow to see the trend Any VB or spotting? Thank you documented in this encounter Plan of Treatment Upcoming Encounters Date Type Department Care Team (Late st Contact Info) Description 06/26/2023 10:00 AM EST Nurse Only Pulmonary Medicine, [facility] [address] [address] Gw, Nurse Pulmonary [address] [address] 07/01/2023 10:15 AM EST Nurse [facility] [address] [address] Gw, Nurse Supervisor Files New [address] [place] [address] 07/07/2023 9:30 AM EST Office Visit Gynecology/Obstetrics Nicki Vigil [address] [place] [address] [place], ESTUARDO Brown [address] [place] [address] Health Maintenance Due Date Last Done Comments [...] this encounter Medical Devices Implanted Type Area Dedicated Driver Device Identifier Shelf Expiration Date Model / Serial / Lot Suture Cinch Long - [id number] Implanted:Qty : 1 on 12/16/[address] MD at OR [facility] N/A: Esophagus [employer] 07/15/2024 [facility]-C01-21 3-L / / [id number] documented as of this encounter Advance Directives [...] the patient have Health Care Power of Diet Consultant? No Care Teams Health And Safety Specialist Relationship Specialty Start Date End Date Lynette Jorge DO [address] [address] PCP - General Family Medicine 06/25/16 documented as of this encounter
--- OUTSIDE RECORDS SUMMARY | 2023-07-26 18:24 | External Medical Summary | Summary of Care ---
Author Name Unknown Organization [facility] Address [address] [place] [address] Phone [phone] Care Team Providers Care Hand Box Coverer Name Role Phone Lynette Jorge DO Primary Care Provider [phone] Reason for Visit * Reason Onset Date Comments Precert Pending 06/02/2023 Nucala Encounter Details Date Type Department Care Team (Late st Contact Info) Description 06/02/2023 Telephone Pulmonary Medicine, [place] [address] [place], [place] [id number] Mann Nunez MD [address] [place], [place] [id number] Precert Pending (Nucala ) Allergies Active Allergy Reactions Criticality Noted Date Comments Bactrim Hives High 07/06/2013 Dust Cough High 07/06/2013 Sneezing, coughing, asthma Nickel Rash 03/19/2021 Other Allergy (See Comments) Itching,Wheezing Medium 07/06/2013 Grass- redness, itching, asthma Pollen Cough High 07/06/2013 Sneezing, cough, asthma Sulfa Antibiotics Hives High 07/06/2013 Trimethoprim Hives 05/24/2018 documented as of this encounter (statuses as of 06/16/2023) Medications Medication Sig Dispensed Refills Start Date End Date Status polyethylene glycol 3350 (MIRALAX) packet Take 1 Packet by mouth daily. 14 Each 0 9 Active Additional Information Patient taking differently:17 g OralDAILY PRN, Informant: Patient, Reported on 09/22/2022 saline (OCEAN) 0.65 % nasal spray Administer 1 [place] into nostril 2 times a day. And as needed for nasal congestion. 30 mL 12 9 Active Vit-Fe Wsn-NV-Nezgz (ONE-A-DAY WOMENS ) 28-0.8 & 223 MG [...] MCG/INH Inhalation Aerosol Powder Breath Activated (umeclidinium [place]) Inhale by mouth 1 Puff in the [...] persistent asthma without complication 150 mg SC [id number] 09/11/2022 Acti ve Albuterol Sulfate (Proventil) (2.5 MG/3ML) 0.083% inhalation solution 2.5 mgIndications:Severe persistent asthma with (acute) exacerbation 2.5 mg NEBULIZER ONCE PRN 02/02/2023 Acti ve Albuterol Sulfate (Proventil) (2.5 MG/3ML) 0.083% inhalation solution 2.5 mgIndications:Severe persistent asthma with acute exacerbation 2.5 mg NEBULIZER PRN 01/27/2023 01/27/2024 Active documented as of this encounter (statuses as of 06/16/2023) Active Problems Problem Noted Date Diagnosed Date [...] Asthma, severe persistent 07/22/2013 Overview: Admitted to [facility] for acute exacerbation on 10/08/18-10/11/18. Has been admitted monthly since last January. Takes deltasone 10mg daily GERD (gastroesophageal reflux disease) 3 Overview: Nissin fundoplication x2. Not on meds for GERD at time of NOB Last Assessment & Plan: Continue FEEDER TENDER famotidine documented as of this encounter (statuses as of 06/16/2023) Resolved Problems Problem Noted Date Diagnosed Date [...] getting steroids and breathing treatments. Continuing on FEEDER TENDER inhalers and steroid 40mg daily. Pulmonary medicine [...] needs to see arlin Peña section in [place] on 10/01/16. RSV (respiratory syncytial virus infection) [...] as of this encounter (statuses as of 06/16/2023) Immunizations Name Administration Dates Next Due H1N1 [...] in the Last Year Never true 03/31/2019 [place] Depression Scale Answer Date Recorded [place] Depression Scale Score 3 02/15/2020 The thought [...] encounter Miscellaneous Notes * Telephone Encounter - Faviola Mora CPhT - 06/16/2023 2:10 PM EST Checking on the status of the pa for the Nucala, please advise Thank you Faviola oMra Freight Elevator Operator III [facility] Specialty Rx 06/16/2023,2:10 PM * Telephone Encounter - Hue Houser [facility] - 06/04/2023 2:52 PM EDT Please see Pulmonary pre-cert request for Mepolizumab (Nucala) 100mg/ml Pen - 100mg every 4 weeks .- route referral message with approval, denial or questions back to Pulmonary Pharmacist Cuddy [phone]. Current Asthma Medications: Controller(s): - Symbicort 160-4.5 [...] 0.44 ! Birch IgE <0.10 kUa/L <0.10 [place] Maple IgE <0.10 kUa/L <0.10 [place] IgE <0.10 kUa/L <0.10 Elm IgE <0.10 kUa/L <0.10 [place] IgE <0.10 kUa/L <0.10 Pecan [place] IgE <0.10 kUa/L <0.10 [place] Tree IgE <0.10 kUa/L <0.10 [place] IgE <0.10 kUa/L <0.10 [place] IgE <0.10 kUa/L <0.10 Common Ragweed IgE <0.10 kUa/L 0.33 [place] Islander Plantain IgE <0.10 kUa/L <0.10 Cook's Quarter IgE <0.10 kUa/L <0.10 Mugwort IgE <0.10 kUa/L <0.10 Pigweed IgE <0.10 kUa/L <0.10 Sheep [place] IgE <0.10 kUa/L <0.10 !: Data is [...] - Severe persistent asthma, uncomplicated J45.50 Location: [facility]: Route pre-cert request to [facility]. Referral to pharmacist for: Clinical co-management. Medication(s) Tried/Failed/Contraindicated: Xolair See corresponding visit note(s) for additional supporting clinical information. Office Information: Prescriber: Dr. Nunez documented in this encounter Plan of Treatment Upcoming Encounters Date Type Department Care Team (Late st Contact Info) Description 06/26/2023 10:00 AM EST Nurse Only Pulmonary Medicine, [facility] [address] [facility] [place] [address] Gw, Nurse Pulmonary [address] [place] [address] [place] [address] 07/01/2023 10:15 AM EST Nurse Only Gynecology/Obstetrics [facility] [address] [facility] [place] [address] Gw, Nurse Lumber Estimator New [address] [place] [address] [place] [address] 07/07/2023 8:15 AM EST Imaging Radiology [facility] [address] [facility] [place] [address] 07/07/2023 9:30 AM EST Office Visit Gynecology/Obstetrics [address] [place] [address] Backer, ESTUARDO Brown [address] [facility] [place] [address] Health Maintenance Due Date Last Done Comments [...] this encounter Medical Devices Implanted Type Area Geophysical Laboratory Director Device Identifier Shelf Expiration Date Model / Serial / Lot Suture Olivia Baer - [id number] Implanted:Qty : 1 on 12/16/[address] MD at OR [facility] N/A: Esophagus [employer] 07/15/2024 [facility]-C01-21 3-L / / [id number] documented as of this encounter Advance Directives [...] the patient have Health Care Power of Lead Manufacturing Technician? No Care Teams Hand Box Coverer Relationship Specialty Start Date End Date Lynette Jorge DO [address] [place] [address] PCP - General Family Medicine 06/25/16 documented as of this encounter
--- OUTSIDE RECORDS SUMMARY | 2023-07-26 18:24 | External Medical Summary ---
Author Name Unknown Address Unknown Organization K01:[facility] [address]. [facility] [address] Laboratory Report Ordering Provider Test Date Status TOLU MONTEIRO KENNY 06/11/2023 09:59:56 Final Q48 hr

hCG can serv e as a screening assay for . However, early may not give a positive hCG test result. In addition, some non- women may have a hCG result slightly higher than the reference limit. Careful interpretation of the hCG with clinical history is required to determine whether the patient may be . Observation Date Value Abnormality Reference (Units ) Status Choriogonadotropin.int act+Beta subunit [Units/volume] in Serum or Plasma 06/11/2023 09:59:56 331.0 Above high normal <=1.0 (mIU/mL) Final Performing Location [facility] [place] [address]
--- OUTSIDE RECORDS SUMMARY | 2023-07-26 18:24 | External Medical Summary | Summary of Care ---
Author Name Unknown Organization [facility] Address [address] [place] [address] Phone [phone] Care Team Providers Care Extractor Machine Operator Name Role Phone Lynette Jorge DO Primary Care Provider [phone] Reason for Visit * Reason Comments Medication Administration * Precert (Within 10 days (routine)) - Authorized Specialty Diagnoses / Procedures Referred By Contcale t Referred To Contact Pharmacy Diagnoses Severe persistent asthma with (acute) exacerbation Procedures Sai Little MD [address] [place] [address] Referral ID Status Reason Start Date Expiration Date V isits Requested Visits Authorized [id number] Authorized Precert 07/04/2022 07/04/2023 [id number] Encounter Details Date Type Department Care Team (Late st Contact Info) Description 06/26/2023 10:00 AM EST Nurse Only Pulmonary Medicine, [facility] [address] [facility] [address] , Nurse Pulmonary [address] [facility] [place] [address] [address] Medication Administration Allergies Active Allergy Reactions Criticality Noted Date Comments Bactrim Hives High 07/06/2013 Dust Cough High 07/06/2013 Sneezing, coughing, asthma Nickel Rash 03/19/2021 Other Allergy (See Comments) Itching,Wheezing Medium 07/06/2013 Grass- redness, itching, asthma Pollen Cough High 07/06/2013 Sneezing, cough, asthma Sulfa Antibiotics Hives High 07/06/2013 Trimethoprim Hives 05/24/2018 documented as of this encounter (statuses as of 06/26/2023) Medications Medication Sig Dispensed Refills Start Date End Date Status polyethylene glycol 3350 (MIRALAX) packet Take 1 Packet by mouth daily. 14 Each 0 10/12/2018 Active Additional Information Patient taking differently:17 g OralDAILY PRN, Informant: Patient, Reported on 09/22/2022 saline (OCEAN) 0.65 % nasal spray Administer 1 [place] into nostril 2 times a day. And as needed for nasal congestion. 30 mL 12 11/10/2018 Active Vit-Fe Wmn-FH-Vqndw (ONE-A-DAY WOMENS ) 28-0.8 & 223 MG [...] MCG/INH Inhalation Aerosol Powder Breath Activated (umeclidinium [place]) Inhale by mouth 1 Puff in the [...] persistent asthma without complication 150 mg SC [id number] 09/11/2022 Acti ve Albuterol Sulfate (Proventil) (2.5 MG/3ML) 0.083% inhalation solution 2.5 mgIndications:Severe persistent asthma with (acute) exacerbation 2.5 mg NEBULIZER ONCE PRN 02/02/2023 Acti ve Albuterol Sulfate (Proventil) (2.5 MG/3ML) 0.083% inhalation solution 2.5 mgIndications:Severe persistent asthma with acute exacerbation 2.5 mg NEBULIZER PRN 01/27/2023 01/27/2024 Active documented as of this encounter (statuses as of 06/26/2023) Active Problems Problem Noted Date Diagnosed Date Weight gain 06/03/2023 PTSD (post-traumatic stress disorder) 09/02/2021 Heart murmur 04/27/2019 Advance directive declined by patient 03/24/2019 Overview: No, Advance Directive brochure offered, patient declined. Fibroid, uterine 02/17/2019 Current chronic use of systemic steroids 019 Vitamin D insufficiency 10/20/2018 Overview: October 2018 = 26 Suggest discussing with PCPelizabeth, suggest taking up to 2000 IU Vit D3 daily during . Idiopathic intracranial hypertension 06/08/2017 Demyelinating disease 06/08/2017 Overview: 05/26 seeing neuro, abnormal MRI however MS workup neg Iron deficiency anemia 08/09/2016 Allergic rhinitis 08/08/2013 Asthma, severe persistent 07/22/2013 Overview: Admitted to [facility] for acute exacerbation on 10/08/18-10/11/18. Has been admitted monthly since last January. Takes deltasone 10mg daily GERD (gastroesophageal reflux disease) 3 Overview: Nissin fundoplication x2. Not on meds for GERD at time of NOB Last Assessment & Plan: Continue VEHICLE OPERATOR TECHNICIAN famotidine documented as of this encounter (statuses as of 06/26/2023) Resolved Problems Problem Noted Date Diagnosed Date [...] getting steroids and breathing treatments. Continuing on VEHICLE OPERATOR TECHNICIAN inhalers and steroid 40mg daily. Pulmonary [...] needs to see arlin Peña section in [place] on 10/01/16. RSV (respiratory syncytial virus infection) [...] Date resolved Car seat info discussed 09/22/2016 Heu Rueda RN 09/22/2016 Problem Action Taken Date [...] as of this encounter (statuses as of 06/26/2023) Immunizations Name Administration Dates Next Due H1N1 [...] in the Last Year Never true 03/31/2019 Lane Depression Scale Answer Date Recorded Lane Depression Scale Score 3 02/15/2020 The thought [...] Sign Reading Time Taken Comments Blood Pressure - - Pulse 68 06/26/2023 10:09 AM EST Temperature 36.4 C (97.5 F) 06/26/2023 10:[address] Respiratory Rate 16 06/26/2023 10:09 AM EST Oxygen Saturation 99% 06/26/2023 10:09 AM EST Inhaled Oxygen Concentration - - Weight - - Height - - Body Mass Index - - documented in this encounter Functional Status Functional [...] 07/01/2023 10:15 AM EST Nurse Only Gynecology/Obstetrics [facility] [address] [facility] [place] [address] Gw, Nurse Project Construction Assistant Manager [facility] [address] [place] [address] 07/07/2023 8:15 AM EST Imaging Radiology [facility] [address] [address] 07/07/2023 9:30 AM EST Office Visit Gynecology/Obstetrics [facility] [address] [facility] [place] [address] Backer, ESTUARDO Brown [address] [place] [address] 07/27/2023 9:00 AM EST Nurse Only Pulmonary Medicine, [facility] [address] [place] [address] Gw, Nurse Pulmonary [address] [place] [address] Health Maintenance Due Date Last Done Comments [...] this encounter Medical Devices Implanted Type Area Solid Tire Tuber Machine Operator Device Identifier Shelf Expiration Date Model / Serial / Lot Suture Cinch Long - [id number] Implanted:Qty : 1 on 12/16/[address] MD at OR [facility] N/A: Esophagus [employer] 07/15/2024 [facility]-C01-21 3-L / / [id number] documented as of this encounter Administered Medications Active Administered Medications - up to 3 most recent administrations Medication Order MAR Action Action Date Dose Rate Site Omalizumab (Xolair) inj 150 mg 150 mg, Subcutaneous, [id number], First dose on Elyssa 09/11/22 at 1245, Until Discontinued, TOTAL DOSE = 300 mg Given 06/26/2023 10:15 AM EST 150 mg Arm Right Upper Given 06/26/2023 10:13 AM EST 150 mg A rm Left Upper Given 05/25/2023 10:44 AM EDT 150 mg A rm Right Upper documented in this encounter Advance Directives Latest [...] the patient have Health Care Power of Tutoring Manager? No Care Teams Extractor Machine Operator Relationship Specialty Start Date End Date Lynette Jorge DO [address] [address] PCP - General Family Medicine 06/25/16 documented as of this encounter
--- OUTSIDE RECORDS SUMMARY | 2023-07-26 18:24 | External Medical Summary | Summary of Care ---
Author Name Unknown Organization [facility] Address [address] [place] [address] Phone [phone] Care Team Providers Care Block Feeder Name Role Phone Lynette Jorge DO Primary Care Provider [phone] Reason for Visit * Reason Onset Date Comments Precert Pending 06/02/2023 Nucala Encounter Details Date Type Department Care Team (Late st Contact Info) Description 06/02/2023 Telephone Pulmonary Medicine, [place] [address], [place] [phone] Mann Nunez MD [address], [place] [phone] Precert Pending (Nucala ) Allergies Active Allergy Reactions Criticality Noted Date Comments Bactrim Hives High 07/06/2013 Dust Cough High 07/06/2013 Sneezing, coughing, asthma Nickel Rash 03/19/2021 Other Allergy (See Comments) Itching,Wheezing Medium 07/06/2013 Grass- redness, itching, asthma Pollen Cough High 07/06/2013 Sneezing, cough, asthma Sulfa Antibiotics Hives High 07/06/2013 Trimethoprim Hives 05/24/2018 documented as of this encounter (statuses as of 06/25/2023) Medications Medication Sig Dispensed Refills Start Date End Date Status polyethylene glycol 3350 (MIRALAX) packet Take 1 Packet by mouth daily. 14 Each 0 9 Active Additional Information Patient taking differently:17 g OralDAILY PRN, Informant: Patient, Reported on 09/22/2022 saline (OCEAN) 0.65 % nasal spray Administer 1 [place] into nostril 2 times a day. And as needed for nasal congestion. 30 mL 12 9 Active Vit-Fe Vxa-DD-Ajure (ONE-A-DAY WOMENS ) 28-0.8 & 223 MG [...] MCG/INH Inhalation Aerosol Powder Breath Activated (umeclidinium [place]) Inhale by mouth 1 Puff in the [...] persistent asthma without complication 150 mg SC [id number] 09/11/2022 Acti ve Albuterol Sulfate (Proventil) (2.5 MG/3ML) 0.083% inhalation solution 2.5 mgIndications:Severe persistent asthma with (acute) exacerbation 2.5 mg NEBULIZER ONCE PRN 02/02/2023 Acti ve Albuterol Sulfate (Proventil) (2.5 MG/3ML) 0.083% inhalation solution 2.5 mgIndications:Severe persistent asthma with acute exacerbation 2.5 mg NEBULIZER PRN 01/27/2023 01/27/2024 Active documented as of this encounter (statuses as of 06/25/2023) Active Problems Problem Noted Date Diagnosed Date [...] of NOB Last Assessment & Plan: Continue MOLD OPERATOR famotidine documented as of this encounter (statuses as of 06/25/2023) Resolved Problems Problem Noted Date Diagnosed Date [...] getting steroids and breathing treatments. Continuing on MOLD OPERATOR inhalers and steroid 40mg daily. Pulmonary [...] arrhythmia Single liveborn, born in [facility], delivered by section 10/03/2016 01/07/2017 INFORMATION 09/09/2016 01/07/2017 Overview: Pt needs to see arlin Peña section in [place] on 10/01/16. RSV (respiratory syncytial virus infection) [...] as of this encounter (statuses as of 06/25/2023) Immunizations Name Administration Dates Next Due H1N1 [...] in the Last Year Never true 03/31/2019 [place] Depression Scale Answer Date Recorded [place] Depression Scale Score 3 02/15/2020 The thought [...] [place] yet. Thank you Susanna Magana CPhT Hooker Machine Tender [facility] 06/25/2023,1:10 PM. * Telephone Encounter - Faviola Mora CPhT - 06/16/2023 2:10 PM EST Checking on the status of the pa for the Nucala, please advise Thank you Faviola Mora Hooker Machine Tender III [facility] 06/16/2023,2:10 PM * Telephone Encounter - Hue Houser [facility] - 06/04/2023 2:52 PM EDT Please see Pulmonary pre-cert request for Mepolizumab (Nucala) 100mg/ml Pen - 100mg every 4 weeks .- route referral message with approval, denial or questions back to Pulmonary Pharmacist [place] [id number]. Current Asthma Medications: Controller(s): - Symbicort 160-4.5 [...] 0.44 ! Birch IgE <0.10 kUa/L <0.10 Duval Maple IgE <0.10 kUa/L <0.10 [place] IgE <0.10 kUa/L <0.10 Elm IgE <0.10 kUa/L <0.10 [place] IgE <0.10 kUa/L <0.10 Pecan Boyle IgE <0.10 kUa/L <0.10 [place] Tree IgE <0.10 kUa/L <0.10 White Anthony IgE <0.10 kUa/L <0.10 Cocklebur IgE <0.10 kUa/L <0.10 Common Ragweed IgE <0.10 kUa/L 0.33 Lao Plantain IgE <0.10 kUa/L <0.10 Cook's Quarter IgE <0.10 kUa/L <0.10 Mugwort IgE <0.10 kUa/L <0.10 Pigweed IgE <0.10 kUa/L <0.10 Sheep [employer] IgE <0.10 kUa/L <0.10 !: Data is [...] [facility]: Route [facility]. Referral to pharmacist for: Clinical co-management. Medication(s) Tried/Failed/Contraindicated: Xolair See corresponding visit note(s) for additional supporting clinical information. Office Information: Prescriber: Dr. Nunez documented in this encounter Plan of Treatment Upcoming Encounters Date Type Department Care Team (Late st Contact Info) Description 06/26/2023 10:00 AM EST Nurse Only Pulmonary Medicine, [facility] [address] [place] [address] , Nurse Pulmonary [address] [place] [address] [place] [address] 07/01/2023 10:15 AM EST Nurse Only Gynecology/Obstetrics [facility] [address] [place] [address] , Nurse Director Social Service New [address] [place] [address] 07/07/2023 8:15 AM EST Imaging Radiology [facility] [address] [place] [address] 07/07/2023 9:30 AM EST Office Visit Gynecology/Obstetrics [facility] [address] [place] [address] GopierJessica CRNP [address] [facility] [place] [address] Health Maintenance Due Date Last Done Comments [...] this encounter Medical Devices Implanted Type Area Coding Coordinator Device Identifier Shelf Expiration Date Model / Serial / Lot Suture Cinch Long - [id number] Implanted:Qty : 1 on 12/16/[address] MD at OR [facility] N/A: Esophagus [employer] 07/15/2024 [facility]-C01-21 3-L / / [id number] documented as of this encounter Advance Directives [...] the patient have Health Care Power of Salesperson Burial Plots? No Care Teams Block Feeder Relationship Specialty Start Date End Date Lynette Jorge DO [address] [address] PCP - General Family Medicine 06/25/16 documented as of this encounter
--- OUTSIDE RECORDS SUMMARY | 2023-07-26 18:24 | External Medical Summary | Summary of Care ---
Author Name Unknown Organization [facility] Address [address] [place] [address] Phone [phone] Care Team Providers Care Inside Upholsterer Name Role Phone Lynette Jorge DO Primary Care Provider [phone] Reason for Visit * Reason Comments Outpatient Testing Encounter Details Date Type Department Care Team (Late st Contact Info) Description 06/11/2023 10:00 AM EDT Laboratory Laboratory, [facility] [address] [place] [address] [facility] [address] [place] [address] Threatened in early Allergies Active Allergy Reactions Criticality Noted Date [...] (OCEAN) 0.65 % nasal spray Administer 1 [place] into nostril 2 times a day. And as needed for nasal congestion. 30 mL 12 11/10/2018 Active Vit-Fe Uwo-ZZ-Lrlej (ONE-A-DAY WOMENS ) 28-0.8 & 223 MG [...] MCG/INH Inhalation Aerosol Powder Breath Activated (umeclidinium [place]) Inhale by mouth 1 Puff in the [...] persistent asthma without complication 150 mg SC [id number] 09/11/2022 Acti ve Albuterol Sulfate (Proventil) (2.5 [...] Asthma, severe persistent 07/22/2013 Overview: Admitted to [facility] for acute exacerbation on 10/08/18-10/11/18. Has been admitted monthly since last January. Takes deltasone 10mg daily GERD (gastroesophageal reflux disease) 3 Overview: Nissin fundoplication x2. Not on meds for GERD at time of NOB Last Assessment & Plan: Continue BRACELET FORM COVERER famotidine documented as of this encounter (statuses [...] getting steroids and breathing treatments. Continuing on BRACELET FORM COVERER inhalers and steroid 40mg daily. Pulmonary medicine [...] INFORMATION 09/28/2018 12/21/2018 Overview: Taking prometrium at [facility] Obesity in , antepartum 09/28/2018 07/12/2019 Overview: BMI: 31.92 kg/m at NOB Pt desires nutrition consult as this is her highest weight, feels it to be associated with prednisone use Early 1hr gtt normal Hypokalemia 01/13/2017 01/13/2017 Overview: 16/16 y/o while in hospital with continuous neb, went in to arrhythmia Single liveborn, born in [facility], delivered by section 10/03/2016 01/07/2017 INFORMATION 09/09/2016 01/07/2017 Overview: Pt needs to see arlin Peña section in [place] on 10/01/16. RSV (respiratory syncytial virus infection) [...] in the Last Year Never true 03/31/2019 [place] Depression Scale Answer Date Recorded [place] Depression Scale Score 3 02/15/2020 The thought [...] 10:00 AM EST Nurse Only Pulmonary Medicine, [facility] [address] [place] [address] Gw, Nurse Pulmonary [address] [place] [address] 07/01/2023 10:15 AM EST Nurse Only Gynecology/Obstetrics [facility] [address] [place] [address] Gw, Nurse Air Brush Operator New [address] [place] [address] 07/07/2023 9:30 AM EST Office Visit Gynecology/Obstetrics [facility] [address] [place] [address] GopierJessica CRNP [address] [place] [address] Pending Results Name Type Priority Associated Diagnoses Date /Time BETA-HCG, QUANTITATIVE Lab Routine Threatened in early 06/11/2023 9:59 AM EDT Health Maintenance Due Date Last Done Comments [...] this encounter Medical Devices Implanted Type Area Casting Machine Operator Automatic Device Identifier Shelf Expiration Date Model / Serial / Lot Suture Cinch Long - [id number] Implanted:Qty : 1 on 12/16/[address] MD at OR [facility] N/A: Esophagus [employer] 07/15/2024 [facility]-C01-21 3-L / / [id number] documented as of this encounter Visit Diagnoses Diagnosis Threatened in early Threatened , unspecified as to episode of care documented in this encounter Advance Directives Latest [...] the patient have Health Care Power of Private Wealth Advisor? No Care Teams Inside Upholsterer Relationship Specialty Start Date End Date Lynette Jorge DO [address] [address] PCP - General Family Medicine 06/25/16 documented as of this encounter
--- OUTSIDE RECORDS SUMMARY | 2023-07-26 18:24 | External Medical Summary | Summary of Care ---
Author Name Unknown Organization [facility] Address [address] [place] [address] Phone [phone] Care Team Providers Care Director Of Entertainment Name Role Phone Lynette Jorge DO Primary Care Provider [phone] Reason for Visit * Reason Comments Outpatient Testing Encounter Details Date Type Department Care Team (Late st Contact Info) Description 06/08/2023 9:10 AM EDT Laboratory Laboratory, [facility] [address] [place] [address] [facility] [address] [place] [address] Weight gain; Threatened in early Allergies Active Allergy Reactions Criticality Noted Date Comments Bactrim Hives High 07/06/2013 Dust Cough High 07/06/2013 Sneezing, coughing, asthma Nickel Rash 03/19/2021 Other Allergy (See Comments) Itching,Wheezing Medium 07/06/2013 Grass- redness, itching, asthma Pollen Cough High 07/06/2013 Sneezing, cough, asthma Sulfa Antibiotics Hives High 07/06/2013 Trimethoprim Hives 05/24/2018 documented as of this encounter (statuses as of 06/08/2023) Medications Medication Sig Dispensed Refills Start Date End Date Status polyethylene glycol 3350 (MIRALAX) packet Take 1 Packet by mouth daily. 14 Each 0 10/12/2018 Active Additional Information Patient taking differently:17 g OralDAILY PRN, Informant: Patient, Reported on 09/22/2022 saline (OCEAN) 0.65 % nasal spray Administer 1 [place] into nostril 2 times a day. And as needed for nasal congestion. 30 mL 12 11/10/2018 Active Vit-Fe Ngu-BI-Cjdto (ONE-A-DAY WOMENS ) 28-0.8 & 223 MG [...] MCG/INH Inhalation Aerosol Powder Breath Activated (umeclidinium [place]) Inhale by mouth 1 Puff in the [...] persistent asthma without complication 150 mg SC [id number] 09/11/2022 Acti ve Albuterol Sulfate (Proventil) (2.5 MG/3ML) 0.083% inhalation solution 2.5 mgIndications:Severe persistent asthma with (acute) exacerbation 2.5 mg NEBULIZER ONCE PRN 02/02/2023 Acti ve Albuterol Sulfate (Proventil) (2.5 MG/3ML) 0.083% inhalation solution 2.5 mgIndications:Severe persistent asthma with acute exacerbation 2.5 mg NEBULIZER PRN 01/27/2023 01/27/2024 Active documented as of this encounter (statuses as of 06/08/2023) Active Problems Problem Noted Date Diagnosed Date [...] persistent 07/22/2013 Overview: Admitted to [facility] for acute exacerbation on 10/08/18-10/11/18. Has been admitted monthly since last January. Takes deltasone 10mg daily GERD (gastroesophageal reflux disease) 3 Overview: Nissin fundoplication x2. Not on meds for GERD at time of NOB Last Assessment & Plan: Continue ALTERATIONS TAILOR famotidine documented as of this encounter (statuses as of 06/08/2023) Resolved Problems Problem Noted Date Diagnosed Date [...] getting steroids and breathing treatments. Continuing on ALTERATIONS TAILOR inhalers and steroid 40mg daily. Pulmonary medicine [...] INFORMATION 09/28/2018 12/21/2018 Overview: Taking prometrium at [facility] Obesity in , antepartum 09/28/2018 07/12/2019 [...] needs to see arlin Peña section in [place] on 10/01/16. RSV (respiratory syncytial virus infection) [...] as of this encounter (statuses as of 06/08/2023) Immunizations Name Administration Dates Next Due H1N1 [...] in the Last Year Never true 03/31/2019 [place] Depression Scale Answer Date Recorded [place] Depression Scale Score 3 02/15/2020 The thought [...] 10:00 AM EST Nurse Only Pulmonary Medicine, [facility] [address] [address] Gw, Nurse Pulmonary [address] [facility] [place] [address] Pending Results Name Type Priority Associated Diagnoses Date /Time BASIC METABOLIC PANEL Lab Routine Weight gain 06/08/2023 9:08 AM EDT INSULIN Lab Routine Weight gain 06/08/2023 9:08 AM EDT HEMOGLOBIN A1C Lab Routine Weight gain 06/08/2023 9:08 AM EDT BETA-HCG, QUANTITATIVE Lab Routine Threatened in early 06/08/2023 9:08 AM EDT Health Maintenance Due Date Last [...] Medical Devices Implanted Type Area Product Development Director Device Identifier Shelf Expiration Date Model / Serial / Lot Suture Olivia Long - [id number] Implanted:Qty : 1 on 12/16/[address] MD at OR [facility] N/A: Esophagus [employer] 07/15/2024 [facility] 3-L / / [id number] documented as of this encounter Visit Diagnoses Diagnosis Weight gain Abnormal weight gain Threatened in early Threatened , unspecified as [...] the patient have Health Care Power of Melting Furnace Skimmer? No Care Teams Director Of Entertainment Relationship Specialty Start Date End Date Lynette Jorge DO [address] [address] PCP - General Family Medicine 06/25/16 documented as of this encounter
--- OUTSIDE RECORDS SUMMARY | 2023-07-26 18:24 | External Medical Summary | Summary of Care ---
Author Name Unknown Organization [facility] Address [address] [place] [address] Phone [phone] Care Team Providers Care Tip Bander Name Role Phone Lynette Jorge DO Primary Care Provider [phone] Reason for Visit * Reason Comments Outpatient Testing Encounter Details Date Type Department Care Team (Late st Contact Info) Description 06/16/2023 12:50 PM EST Laboratory Laboratory, [facility] [address] [place] [address] [facility] [address] [place] [address] Threatened in early Allergies Active [...] (OCEAN) 0.65 % nasal spray Administer 1 [place] into nostril 2 times a day. And as needed for nasal congestion. 30 mL 12 11/10/2018 Active Vit-Fe Edf-DY-Yplqk (ONE-A-DAY WOMENS ) 28-0.8 & 223 MG [...] MCG/INH Inhalation Aerosol Powder Breath Activated (umeclidinium [place]) Inhale by mouth 1 Puff in the [...] persistent asthma without complication 150 mg SC [id number] 09/11/2022 Acti ve Albuterol Sulfate (Proventil) (2.5 [...] of NOB Last Assessment & Plan: Continue LGSW famotidine documented as of this encounter (statuses [...] getting steroids and breathing treatments. Continuing on LGSW inhalers and steroid 40mg daily. Pulmonary medicine [...] in to arrhythmia Single liveborn, born in [facility], delivered by section 10/03/2016 01/07/2017 INFORMATION 09/09/2016 01/07/2017 Overview: Pt needs to see arlin Peña section in [place] on 10/01/16. RSV (respiratory syncytial virus infection) [...] in the Last Year Never true 03/31/2019 [place] Depression Scale Answer Date Recorded [place] Depression Scale Score 3 02/15/2020 The thought [...] 10:00 AM EST Nurse Only Pulmonary Medicine, [facility] [address] [facility] [place] [address] Gw, Nurse Pulmonary [facility] [place] [address] 07/01/2023 10:15 AM EST Nurse Only Gynecology/Obstetrics [facility] [address] [facility] [place] [address] Gw, Nurse Information Systems Security Manager New [address] [facility] [place] [address] 07/07/2023 8:15 AM EST Imaging Radiology [facility] [address] [facility] [place] [address] 07/07/2023 9:30 AM EST Office Visit Gynecology/Obstetrics [facility] [address] [facility] [place] [address] Backer, ESTUARDO Brown [address] [place] [address] Pending Results Name Type Priority Associated Diagnoses Date /Time BETA-HCG, QUANTITATIVE Lab Routine Threatened in early 06/16/2023 12:52 PM EST Health Maintenance Due Date Last Done [...] this encounter Medical Devices Implanted Type Area Soldering Machine Setter Device Identifier Shelf Expiration Date Model / Serial / Lot Suture Cinch Long - [id number] Implanted:Qty : 1 on 12/16/[address] MD at OR [facility] N/A: Esophagus [employer] 07/15/2024 [facility]-C01-21 3-L / / [id number] documented as of this encounter Visit Diagnoses [...] patient have Health Care Power of Lead Pharmacy Technician? No Care Teams Tip Bander Relationship Specialty Start Date End Date Lynette Jorge DO [address] [address] PCP - General Family Medicine 06/25/16 documented as of this encounter
--- OUTSIDE RECORDS SUMMARY | 2023-07-26 18:24 | External Medical Summary | Summary of Care ---
Author Name Unknown Organization [facility] Address [address] [place] [address] Phone [phone] Care Team Providers Care Leather Belt Shaper Name Role Phone Lynette Jorge DO Primary Care Provider [phone] Reason for Visit * Reason Onset Date Comments Order Request 06/16/2023 Dating ultrasoun d Encounter Details Date Type Department Care Team (Late st Contact Info) Description 06/16/2023 Telephone Gynecology/Obstetrics [facility] [address] [place] [address] Jessica Omer CRNP [address] [facility] [address] Order Request (Dating ultrasound ) Allergies Active Allergy Reactions Criticality Noted [...] (OCEAN) 0.65 % nasal spray Administer 1 [place] into nostril 2 times a day. And as needed for nasal congestion. 30 mL 12 11/10/2018 Active Vit-Fe Isy-CP-Renwh (ONE-A-DAY WOMENS ) 28-0.8 & 223 MG [...] MCG/INH Inhalation Aerosol Powder Breath Activated (umeclidinium [place]) Inhale by mouth 1 Puff in the [...] persistent asthma without complication 150 mg SC [id number] 09/11/2022 Acti ve Albuterol Sulfate (Proventil) (2.5 [...] Asthma, severe persistent 07/22/2013 Overview: Admitted to [facility] for acute exacerbation on 10/08/18-10/11/18. Has been admitted monthly since last January. Takes deltasone 10mg daily GERD (gastroesophageal reflux disease) 3 Overview: Nissin fundoplication x2. Not on meds for GERD at time of NOB Last Assessment & Plan: Continue HOTEL OR MOTEL RECEPTIONIST famotidine documented as of this encounter (statuses [...] getting steroids and breathing treatments. Continuing on HOTEL OR MOTEL RECEPTIONIST inhalers and steroid 40mg daily. Pulmonary medicine [...] in to arrhythmia Single liveborn, born in [facility], delivered by section 10/03/2016 01/07/2017 INFORMATION 09/09/2016 01/07/2017 Overview: Pt needs to see arlin Peña section in [place] on 10/01/16. RSV (respiratory syncytial virus infection) [...] in the Last Year Never true 03/31/2019 [place] Depression Scale Answer Date Recorded [place] Depression Scale Score 3 02/15/2020 The thought [...] encounter Miscellaneous Notes * Telephone Encounter - Lakshmi Scott MED ASSIST - 06/16/2023 1:06 PM EST Dating US scheduled prior to NOB; Please place order and send back to me documented in this encounter Plan of Treatment Upcoming Encounters Date Type Department Care Team (Late st Contact Info) Description 06/26/2023 10:00 AM EST Nurse Only Pulmonary Medicine, [facility] [address] [facility] [place] [address] Jt, Nurse Pulmonary [facility] [place] [address] 07/01/2023 10:15 AM EST Nurse Only Gynecology/Obstetrics [facility] [address] [facility] [place] [address] Gw, Nurse Identity Management Consultant New [address] [place] [address] 07/07/2023 8:15 AM EST Imaging Radiology [facility] [address] [facility] [place] [address] 07/07/2023 9:30 AM EST Office Visit Gynecology/Obstetrics [facility] [address] [facility] [place] [address] Jessica Omer CRNP [address] [place] [address] Scheduled Orders Name Type Priority Associated Diagnoses Orde r Schedule US PELVIS TRANS-VAGINAL OB Medical Imaging Routine examination or test, positive result Expected: 07/07/2023 (Approximate), Expires: 07/16/2024 Health Maintenance Due Date Last Done Comments [...] this encounter Medical Devices Implanted Type Area Technical Producer Device Identifier Shelf Expiration Date Model / Serial / Lot Suture Cinch Long - [id number] Implanted:Qty : 1 on 12/16/[address] MD at OR [facility] N/A: Esophagus [employer] 07/15/2024 [facility]-C01-21 3-L / / [id number] documented as of this encounter Visit Diagnoses Diagnosis examination or test, positive result- Primary documented in this encounter Advance Directives [...] the patient have Health Care Power of Warehouse Administrative Assistant? No Care Teams Leather Belt Shaper Relationship Specialty Start Date End Date Lynette Jorge DO [address] [place] [address] PCP - General Family Medicine 06/25/16 documented as of this encounter
--- OUTSIDE RECORDS SUMMARY | 2023-07-26 18:24 | External Medical Summary | Summary of Care ---
Author Name Unknown Organization [facility] Address [address] [place] [address] Phone [phone] Care Team Providers Care Assistant Professor Of Chemistry Name Role Phone Lynette Jorge DO Primary Care Provider [phone] Encounter Details Date Type Department Care Team (Late st Contact Info) Description 06/10/2023 Telephone Gynecology/Obstetrics BernsteinServandoericka Vigil [address] [facility] [place] [address] Jessica Omer CRNP [address] [place] [address] Allergies Active Allergy Reactions Criticality Noted Date Comments Bactrim Hives High 07/06/2013 Dust Cough High 07/06/2013 Sneezing, coughing, asthma Nickel Rash 03/19/2021 Other Allergy (See Comments) Itching,Wheezing Medium 07/06/2013 Grass- redness, itching, asthma Pollen Cough High 07/06/2013 Sneezing, cough, asthma Sulfa Antibiotics Hives High 07/06/2013 Trimethoprim Hives 05/24/2018 documented as of this encounter (statuses as of 06/10/2023) Medications Medication Sig Dispensed Refills Start Date End Date Status polyethylene glycol 3350 (MIRALAX) packet Take 1 Packet by mouth daily. 14 Each 0 10/12/2018 Active Additional Information Patient taking differently:17 g OralDAILY PRN, Informant: Patient, Reported on 09/22/2022 saline (OCEAN) 0.65 % nasal spray Administer 1 [place] into nostril 2 times a day. And as needed for nasal congestion. 30 mL 12 11/10/2018 Active Vit-Fe Czg-TM-Eqbpz (ONE-A-DAY WOMENS ) 28-0.8 & 223 MG [...] MCG/INH Inhalation Aerosol Powder Breath Activated (umeclidinium [place]) Inhale by mouth 1 Puff in the [...] persistent asthma without complication 150 mg SC [id number] 09/11/2022 Acti ve Albuterol Sulfate (Proventil) (2.5 MG/3ML) 0.083% inhalation solution 2.5 mgIndications:Severe persistent asthma with (acute) exacerbation 2.5 mg NEBULIZER ONCE PRN 02/02/2023 Acti ve Albuterol Sulfate (Proventil) (2.5 MG/3ML) 0.083% inhalation solution 2.5 mgIndications:Severe persistent asthma with acute exacerbation 2.5 mg NEBULIZER PRN 01/27/2023 01/27/2024 Active documented as of this encounter (statuses as of 06/10/2023) Active Problems Problem Noted Date Diagnosed Date [...] of NOB Last Assessment & Plan: Continue LICENSING ENGINEER famotidine documented as of this encounter (statuses as of 06/10/2023) Resolved Problems Problem Noted Date Diagnosed Date [...] getting steroids and breathing treatments. Continuing on LICENSING ENGINEER inhalers and steroid 40mg daily. Pulmonary medicine [...] in to arrhythmia Single liveborn, born in [facility], delivered by section 10/03/2016 01/07/2017 INFORMATION 09/09/2016 01/07/2017 Overview: Pt needs to see arlin Peña section in [place] on 10/01/16. RSV (respiratory syncytial virus infection) [...] attend class, will schedule today 06/16/2016 Chelsey eDjesus RN 06/16/16 Problem Action Taken Date entered [...] any current needs or questions 09/08/2016 Chelsey eDjesus RN 09/08/16 Problem Action Taken Date entered [...] as of this encounter (statuses as of 06/10/2023) Immunizations Name Administration Dates Next Due H1N1 [...] in the Last Year Never true 03/31/2019 [place] Depression Scale Answer Date Recorded [place] Depression Scale Score 3 02/15/2020 The thought [...] Encounter - Lakshmi Scott MED ASSIST - 06/10/2023 12:34 PM EDT Appts scheduled, pt aware * Telephone Encounter - Wendy Kaiser RN - 06/10/2023 11:52 AM EDT Please assist with scheduling NOB visits * Telephone Encounter - Alisson Araiza LPN - 06/10/2023 11:38 AM EDT Pt called to schedule her first NOB appt. Pt states she did have a positive UPT on 06/05/2023 and Friday 06/08 Were you using any type of control? None Any bleeding or any severe pelvic pain?NO Are you taking any vitamins?Yes LMP 05/04/2023 By LMP pt is approx 5 wks. Pt will need scheduled after 06/19/2023 Insurance [facility] Pt transferred to [facility] to sched her NOB and US. US order will need placed. Pt would like to have care completed at [facility]. Alisson Araiza LPN 06/10/2023 11:40 AM documented in this encounter Plan of Treatment Upcoming Encounters Date Type Department Care Team (Late Contact Info) Description 06/26/2023 10:00 AM EST Nurse Only Pulmonary Medicine, [facility] [place] [address] Gw, Nurse Pulmonary [facility] [place] [address] 07/01/2023 10:15 AM EST Nurse Only Gynecology/Obstetrics [facility] [address] [facility] [place] [address] Gw, Nurse Rn Military [place] [address] [facility] [place] [address] 07/07/2023 9:30 AM EST Office Visit Gynecology/Obstetrics [facility] [place] [address] Backer, ESTUARDO Brown [address] [place] [address] Health Maintenance Due Date Last Done Comments [...] this encounter Medical Devices Implanted Type Area Consulting Sales Manager Device Identifier Shelf Expiration Date Model / Serial / Lot Suture Cinch Long - [id number] Implanted:Qty : 1 on 12/16/[address] MD at OR [facility] N/A: Esophagus [employer] 07/15/2024 [facility]-C01-21 3-L / / [id number] documented as of this encounter Advance Directives [...] the patient have Health Care Power of Service Station Console Operator? No Care Teams Assistant Professor Of Chemistry Relationship Specialty Start Date End Date Lynette Jorge DO [address] [place] [address] PCP - General Family Medicine 06/25/16 documented as of this encounter
--- OUTSIDE RECORDS SUMMARY | 2023-07-26 18:24 | External Medical Summary | Summary of Care ---
Author Name Unknown Organization [facility] Address [address] [place] [address] Phone [phone] Care Team Providers Care Interior Plant Caretaker Name Role Phone Lynette Jorge DO Primary Care Provider [phone] Reason for Visit * Reason Onset Date Comments Precert Pending 06/02/2023 Nucala Encounter Details Date Type Department Care Team (Late st Contact Info) Description 06/02/2023 Telephone Pulmonary Medicine, [place] [address], [place] [phone] Mann Nunez MD [address], [place] [phone] Precert Pending (Nucala ) Allergies Active Allergy [...] (OCEAN) 0.65 % nasal spray Administer 1 Roy into nostril 2 times a day. And as needed for nasal congestion. 30 mL 12 9 Active Vit-Fe Gbk-KN-Ssujc (ONE-A-DAY WOMENS ) 28-0.8 & 223 MG [...] MCG/INH Inhalation Aerosol Powder Breath Activated (umeclidinium [place]) Inhale by mouth 1 Puff in the [...] persistent asthma without complication 150 mg SC [id number] 09/11/2022 Acti ve Albuterol Sulfate (Proventil) (2.5 [...] Asthma, severe persistent 07/22/2013 Overview: Admitted to [facility] for acute exacerbation on 10/08/18-10/11/18. Has been admitted monthly since last January. Takes deltasone 10mg daily GERD (gastroesophageal reflux disease) 3 Overview: Nissin fundoplication x2. Not on meds for GERD at time of NOB Last Assessment & Plan: Continue SITE FOREMAN famotidine documented as of this encounter (statuses [...] getting steroids and breathing treatments. Continuing on SITE FOREMAN inhalers and steroid 40mg daily. Pulmonary medicine [...] Single liveborn, born in [facility], delivered by section 10/03/2016 01/07/2017 INFORMATION 09/09/2016 01/07/2017 Overview: Pt needs to see arlin Peña section in [place] on 10/01/16. RSV (respiratory syncytial virus infection) [...] in the Last Year Never true 03/31/2019 [place] Depression Scale Answer Date Recorded [place] Depression Scale Score 3 02/15/2020 The thought [...] PA yet. Thank you Susanna Magana CPhT Remelt Furnace Expediter [facility] 06/25/2023,1:10 PM. * Telephone Encounter - Faviola Mora CPhT - 06/16/2023 2:10 PM EST Checking on the status of the pa for the Nucala, please advise Thank you Faviola Mora Remelt Furnace Expediter III [facility] 06/16/2023,2:10 PM * Telephone Encounter - Hue Houser [facility] - 06/04/2023 2:52 PM EDT Please see Pulmonary pre-cert request for Mepolizumab (Nucala) 100mg/ml Pen - 100mg every 4 weeks .- route referral message with approval, denial or questions back to Pulmonary Pharmacist Ardara [id number]. Current Asthma Medications: Controller(s): - Symbicort 160-4.5 [...] 0.44 ! Birch IgE <0.10 kUa/L <0.10 [place] Maple IgE <0.10 kUa/L <0.10 [place] IgE <0.10 kUa/L <0.10 Elm IgE <0.10 kUa/L <0.10 [place] IgE <0.10 kUa/L <0.10 Pecan Genesee IgE <0.10 kUa/L <0.10 [place]ill Tree IgE <0.10 kUa/L <0.10 White Anthony IgE <0.10 kUa/L <0.10 Cocklebur IgE <0.10 kUa/L <0.10 Common Ragweed IgE <0.10 kUa/L 0.33 Ukrainian Plantain IgE <0.10 kUa/L <0.10 Cook's Quarter IgE <0.10 kUa/L <0.10 Mugwort IgE <0.10 kUa/L <0.10 Pigweed IgE <0.10 kUa/L <0.10 Sheep Firth IgE <0.10 kUa/L <0.10 !: Data is [...] - Severe persistent asthma, uncomplicated J45.50 Location: [facility]: Route pre-cert request to [facility]. Referral to pharmacist for: Clinical co-management. Medication(s) Tried/Failed/Contraindicated: Xolair See corresponding visit note(s) for additional supporting clinical information. Office Information: Prescriber: Dr. Nunez documented in this encounter Plan of Treatment Upcoming Encounters Date Type Department Care Team (Late st Contact Info) Description 06/26/2023 10:00 AM EST Nurse Only Pulmonary Medicine, [facility] [address] [facility] [place] [address] , Nurse Pulmonary [address] [place] [address] [place] [address] 07/01/2023 10:15 AM EST Nurse Only Gynecology/Obstetrics [facility] 132 [facility] [place] [address] , Nurse Line Construction Engineer New 132 [facility] [place] [address] 07/07/2023 8:15 AM EST Imaging Radiology [facility] [address] [facility] [place] [address] 07/07/2023 9:30 AM EST Office Visit Gynecology/Obstetrics [facility] 132 [facility] [place] [address] GopierJessica CRNP 132 [facility] [place] [address] Health Maintenance Due Date Last Done Comments [...] this encounter Medical Devices Implanted Type Area Emblem Cutter Device Identifier Shelf Expiration Date Model / Serial / Lot Suture Cinch Long - [id number] Implanted:Qty : 1 on 12/16/[address] MD at OR [facility] N/A: Esophagus [employer] 07/15/2024 [facility]-C01-21 3-L / / [id number] documented as of this encounter Advance Directives [...] the patient have Health Care Power of Gis Software Engineer? No Care Teams Interior Plant Caretaker Relationship Specialty Start Date End Date Lynette Jorge DO [address] [address] PCP - General Family Medicine 06/25/16 documented as of this encounter
--- OUTSIDE RECORDS SUMMARY | 2023-07-26 18:24 | External Medical Summary | Summary of Care ---
Author Name Unknown Organization [facility] Address [address] [place] [address] Phone [phone] Care Team Providers Care Alignment Mechanic Name Role Phone Lynette Jorge DO Primary Care Provider [phone] Encounter Details Date Type Department Care Team (Late st Contact Info) Description 06/16/2023 Telephone [facility] [address] [place] [address] Rene Mccloud MD [address] [place] [address] Allergies Active Allergy Reactions Criticality Noted Date Comments Bactrim Hives High 07/06/2013 Dust Cough High 07/06/2013 Sneezing, coughing, asthma Nickel Rash 03/19/2021 Other Allergy (See Comments) Itching,Wheezing Medium 07/06/2013 Grass- redness, itching, asthma Pollen Cough High 07/06/2013 Sneezing, cough, asthma Sulfa Antibiotics Hives High 07/06/2013 Trimethoprim Hives 05/24/2018 documented as of this encounter (statuses as of 06/18/2023) Medications Medication Sig Dispensed Refills Start Date End Date Status polyethylene glycol 3350 (MIRALAX) packet Take 1 Packet by mouth daily. 14 Each 0 10/12/2018 Active Additional Information Patient taking differently:17 g OralDAILY PRN, Informant: Patient, Reported on 09/22/2022 saline (OCEAN) 0.65 % nasal spray Administer 1 [place] into nostril 2 times a day. And as needed for nasal congestion. 30 mL 12 11/10/2018 Active Vit-Fe Khr-VP-Bwwuy (ONE-A-DAY WOMENS ) 28-0.8 & 223 MG [...] MCG/INH Inhalation Aerosol Powder Breath Activated (umeclidinium [place]) Inhale by mouth 1 Puff in the [...] persistent asthma without complication 150 mg SC [id number] 09/11/2022 Acti ve Albuterol Sulfate (Proventil) (2.5 MG/3ML) 0.083% inhalation solution 2.5 mgIndications:Severe persistent asthma with (acute) exacerbation 2.5 mg NEBULIZER ONCE PRN 02/02/2023 Acti ve Albuterol Sulfate (Proventil) (2.5 MG/3ML) 0.083% inhalation solution 2.5 mgIndications:Severe persistent asthma with acute exacerbation 2.5 mg NEBULIZER PRN 01/27/2023 01/27/2024 Active documented as of this encounter (statuses as of 06/18/2023) Active Problems Problem Noted Date Diagnosed Date [...] of NOB Last Assessment & Plan: Continue CASH SURRENDER CALCULATOR famotidine documented as of this encounter (statuses as of 06/18/2023) Resolved Problems Problem Noted Date Diagnosed Date [...] getting steroids and breathing treatments. Continuing on CASH SURRENDER CALCULATOR inhalers and steroid 40mg daily. Pulmonary medicine [...] needs to see arlin Peña section in [place] on 10/01/16. RSV (respiratory syncytial virus infection) [...] as of this encounter (statuses as of 06/18/2023) Immunizations Name Administration Dates Next Due H1N1 [...] in the Last Year Never true 03/31/2019 [place] Depression Scale Answer Date Recorded [place] Depression Scale Score 3 02/15/2020 The [...] encounter Miscellaneous Notes * Telephone Encounter - Catherine Marc LPN - 06/18/2023 10:08 AM EST Scheduled. Pt aware * Telephone Encounter - Catherine Marc LPN - 06/18/2023 10:08 AM EST ----- Message from Rene Parada MD sent at 06/18/2023 10:04 AM EST ----- Please let her know [facility] increased appropriately Recommended to have NOB and US Thank you * Telephone Encounter - Catherine Marc LPN - 06/16/2023 10:[address] Villareal would like her to have hcg drawn today. Pt notified and agreeable. * Telephone Encounter - Catherine Marc LPN - 06/16/2023 10:15 AM EST ----- Message from Rene Parada MD sent at 06/16/2023 10:13 AM EST ----- ... documented in this encounter Plan of Treatment Upcoming Encounters Date Type Department Care Team (Late st Contact Info) Description 06/26/2023 10:00 AM EST Nurse Only Pulmonary Medicine, [facility] [address] [facility] [place] [address] Gw, Nurse Pulmonary [facility] [place] [address] 07/01/2023 10:15 AM EST Nurse Only Gynecology/Obstetrics [facility] [address] [facility] [place] [address] Gw, Nurse Clinical Account Executive New [address] [facility] [place] [address] 07/07/2023 8:15 AM EST Imaging Radiology [facility] [address] [facility] [place] [address] 07/07/2023 9:30 AM EST Office Visit Gynecology/Obstetrics [facility] [address] [facility] [place] [address] Backer, ESTUARDO Brown 132 [facility] [place] [address] Health Maintenance Due Date Last Done Comments [...] this encounter Medical Devices Implanted Type Area Cisco Engineer Device Identifier Shelf Expiration Date Model / Serial / Lot Suture Cinch Long - [id number] Implanted:Qty : 1 on 12/16/[address] MD at OR [facility] N/A: Esophagus [employer] 07/15/2024 [facility]-C01-21 3-L / / [id number] documented as of this encounter Advance Directives [...] the patient have Health Care Power of Director Software Development? No Care Teams Alignment Mechanic Relationship Specialty Start Date End Date Lynette Jorge DO [address] [address] PCP - General Family Medicine 06/25/16 documented as of this encounter
--- OUTSIDE RECORDS SUMMARY | 2023-07-26 18:24 | External Medical Summary ---
Author Name Unknown Address Unknown Organization K01:[facility] [place] [address] [address] [facility] [address] [facility] [id number] Laboratory Report Ordering Provider Test Date Status THANIATOLU KENNY 06/16/2023 12:52:44 Final Q48 hr

hCG can serv e [...] Date Value Abnormality Reference (Units ) Status Choriogonadotropin.in tact+Beta subunit [Units/volume] in Serum or Plasma 06/16/2023 12:52:44 2422.0 Above high normal <=1.0 (mIU/mL) Final Performing Location [facility] [place] [address] [address] [facility] [id number]
--- OUTSIDE RECORDS SUMMARY | 2023-07-26 18:25 | External Medical Summary ---
Author Name Unknown Address Unknown Organization K01:[facility] [place] [address] [address] [facility] [address] [facility] [address] Laboratory Report Ordering Provider Test Date Status TOLU MONTEIROEloina 06/08/2023 09:08:00 Final Q48 hr

hCG can serv e [...] act+Beta subunit [Units/volume] in Serum or Plasma 06/08/2023 09:08:00 74.1 Above high normal <=1.0 (mIU/mL) Final Performing Location [facility] [place] [address]
--- OUTSIDE RECORDS SUMMARY | 2023-07-26 18:25 | External Medical Summary | Summary of Care ---
Author Name Unknown Organization [facility] Address [address] [place] [address] Phone [phone] Care Team Providers Care Floor Associate Name Role Phone Ania Lynette Alejandro GUPTA Primary Care Provider [phone] Reason for Visit * Reason Onset Date Comments Information 06/02/2023 Encounter Details Date Type Department Care Team (Late st Contact Info) Description 06/02/2023 Telephone Pulmonary Medicine, [place] [address], [place] [id number] Altagracia Choudhury MD [address], [place] [id number] Information Allergies Active Allergy Reactions Criticality Noted Date Comments Bactrim Hives High 07/06/2013 Dust Cough High 07/06/2013 Sneezing, coughing, asthma Nickel Rash 03/19/2021 Other Allergy (See Comments) Itching,Wheezing Medium 07/06/2013 Grass- redness, itching, asthma Pollen Cough High 07/06/2013 Sneezing, cough, asthma Sulfa Antibiotics Hives High 07/06/2013 Trimethoprim Hives 05/24/2018 documented as of this encounter (statuses as of 06/02/2023) Medications Medication Sig Dispensed Refills Start Date End Date Status polyethylene glycol 3350 (MIRALAX) packet Take 1 Packet by mouth daily. 14 Each 0 9 Active Additional Information Patient taking differently:17 g OralDAILY PRN, Informant: Patient, Reported on 09/22/2022 saline (OCEAN) 0.65 % nasal spray Administer 1 [place] into nostril 2 times a day. And as needed for nasal congestion. 30 mL 12 9 Active Vit-Fe Axg-AH-Hxbfo (ONE-A-DAY WOMENS ) 28-0.8 & 223 MG [...] MCG/INH Inhalation Aerosol Powder Breath Activated (umeclidinium [place]) Inhale by mouth 1 Puff in the [...] after use. 12 g 6 3 Active Norethindrone 0.35 MG Oral TabletIndications: Encounter for initial prescription of contraceptive pills,Routine screening for STI (sexually transmitted infection) Take 1 Tablet by mouth in the morning. 28 Tablet 3 3 Active Budesonide-Formote rol Fumarate 160-4.5 MCG/ACT [...] 4 weeks. 1 mL 12 3 Active Tezspire 210 MG/1.91ML Subcutaneous Solution Prefilled Syringe (Tezepelumab-ekko) Inject 1.91 mL under the skin every 4 weeks. 1.91 mL 12 3 06/02/20 23 Discontinued Hospital, Clinic, or Other Facility Administered Medication Ordered Dose Route Frequency Start Date End Date Status Omalizumab (Xolair) inj 150 mgIndications:Severe persistent asthma without complication 150 mg SC [id number] 09/11/2022 Acti ve Albuterol Sulfate (Proventil) (2.5 MG/3ML) 0.083% inhalation solution 2.5 mgIndications:Severe persistent asthma with (acute) exacerbation 2.5 mg NEBULIZER ONCE PRN 02/02/2023 Acti ve Albuterol Sulfate (Proventil) (2.5 MG/3ML) 0.083% inhalation solution 2.5 mgIndications:Severe persistent asthma with acute exacerbation 2.5 mg NEBULIZER PRN 01/27/2023 01/27/2024 Active documented as of this encounter (statuses as of 06/02/2023) Active Problems Problem Noted Date Diagnosed Date PTSD (post-traumatic stress disorder) 09/02/2021 Heart murmur 04/27/2019 Advance directive declined by patient 03/24/2019 Overview: No, Advance Directive brochure offered, patient declined. Fibroid, uterine 02/17/2019 Vitamin D insufficiency 10/20/2018 Overview: October 2018 = 27 Suggest discussing with PCPelizabeth able, suggest taking up to 2000 IU Vit D3 daily during . Idiopathic intracranial hypertension 06/08/2017 Demyelinating disease 06/08/2017 Overview: 05/26 seeing neuro, abnormal MRI however MS workup neg Iron deficiency anemia 08/09/2016 Allergic rhinitis 08/08/2013 Asthma, severe persistent 07/22/2013 Overview: Admitted to [facility] for acute exacerbation on 10/08/18-10/11/18. Has been admitted monthly since last January. Takes deltasone 10mg daily GERD (gastroesophageal reflux disease) 3 Overview: Nissin fundoplication x2. Not on meds for GERD at time of NOB Last Assessment & Plan: Continue EXHIBITION CARVER famotidine documented as of this encounter (statuses as of 06/02/2023) Resolved Problems Problem Noted Date Diagnosed Date Resolved Date Status asthmaticus 02/15/2019 9 Nocturnal hypoxemia due to asthma 12/31/2018 06/07/2019 Current chronic use of systemic steroids 12/31/2018 06/10/2022 High-risk 12/29/2018 07/12/20 19 Obesity, Class I, BMI 30.0-3 4.9 (see actual BMI) 11/05/2018 09/21/2019 Asthma exacerbation 11/05/2018 01/14/20 19 Severe persistent asthma wit h acute exacerbation 10/08/2018 04/15/2019 Last Assessment & Plan: Patient was recently discharged on similar symptoms. Doing better now after getting steroids and breathing treatments. Continuing on EXHIBITION CARVER inhalers and steroid 40mg daily. Pulmonary medicine [...] current needs or questions 01/25/2019 Maria A Amaro, SANDRA 01/25/19 INFORMATION 09/28/2018 12/21/2018 Overview: Taking prometrium [...] needs to see arlin Peña section in [place] on 10/01/16. RSV (respiratory syncytial virus infection) [...] needs or questions 04/15/2019 Maria A Amaro, RN 04/15/19 Problem Action Taken Date entered [...] trimester screening 10/26/2014 , normal first 09/07/2014 09/01/2016 Overview: MFM referral placed for FTS-negative Offer MSAFP after 15 weeks-negative Vocal cord dysfunction 08/08/201306/08 documented as of this encounter (statuses as of 06/02/2023) Immunizations Name Administration Dates Next Due H1N1 [...] in the Last Year Never true 03/31/2019 Roberts Depression Scale Answer Date Recorded Roberts Depression Scale Score 3 02/15/2020 The thought [...] encounter Miscellaneous Notes * Telephone Encounter - SEAN Ortiz ASSIST - 06/02/2023 12:24 PM EDT Pt tried / failed Xolair per Dr. Choudhury. Tezspire was denied by insurance. Nucala will be scripted in place of this. Will submit PA in separate encounter for Nucala. * Addendum Note - Altagracia Choudhury MD - 06/02/2023 10:53 AM EDTAddended by: ALTAGRACIA CHOUDHURY on: 06/02/2023 10:53 AM Modules accepted: Orders * Telephone Encounter - HUGO Traore - 06/02/2023 10:40 AM EDT Patient's plan follows the statewide PDL and requires use of the following medications first: Dupixent (dupilumab) PenPA, QL Dupixent (dupilumab) SyringePA, QL Fasenra (benralizumab) AutoinjectorPA, QL Fasenra (benralizumab) SyringePA, QL Xolair (omalizumab) SyringePA, QL Xolair (omalizumab) VialPA, QL Can the patient switch to any of the above alternatives? Please advise. Thank you! * Telephone Encounter - Saadia Ba CPhT - 06/02/2023 10:10 AM EDT New or re-auth: New Patient Marianne Valenzuela needs a prior authorization for their Tezspire through their [employer] insurance. ID: [id number] [id number] PCN:[id number] Phone: Target ship date is new start. Thank you very much, Saadia Ba CPhT Nurse Practitioner Physicians Assistant [facility] Specialty RX 06/02/2023,10:11 AM documented in this encounter Plan of Treatment Upcoming Encounters Date Type Department Care Team (Late st Contact Info) Description 06/03/2023 10:40 AM EDT Office Visit Family Practice [facility] [address] [place] [address] Ann [place] CRNP [address] [facility] [place] [address] 06/26/2023 10:00 AM EST Nurse Only Pulmonary Medicine, [facility] [address] [place] [address] , Nurse Pulmonary [address] [facility] [place] [address] Health Maintenance Due Date Last Done Comments COVID-19 Vaccine (#1) 1991 Depression Screening 12/16/2019 12/15/2018 HPV/Co-Test 2021 Influenza Vaccine (FLU shot) (#1) 2023 09/23/2022, 05/09/2020, 04/18/2019, Additional history exists Cervical Cancer Screening 05/10/2024 Pap Smear 05/10/2024 05/10/2021, 0608/2017, 01/08/2018, Additional history exists DTaP,Tdap,and Td Vaccines (4 - Td or Tdap) 05/05/2029 05/05/2019, 10/02/2016, 10/06/2013 Pneumococcal Vaccine: Pediatrics (0 to 5 Years) and At-Risk Patients (6 to 64 Years) (3 - PPSV23 or PCV20) 2056 08/05/2018, 03/10/2018, 04/25/2014, Additional history exists GARDASIL-HPV IMMUNIZATION SERIES Addressed 04/03/2023, 10/21/2022, 09/23/2022, Additional history exists Overridden with the intention of not completing the topic Hepatitis B Completed 04/03/2023, 09/23/2022 MENINGOCOCCAL (MENACTRA/MENVEO) Aged Out No longer eligible based on patient's age to complete this topic documented as of this encounter Medical Devices Implanted Type Area Repairer Typewriter Device Identifier Shelf Expiration Date Model / Serial / Lot Suture Cinch Long - [id number] Implanted:Qty : 1 on 12/16/[address] MD at OR [facility] N/A: Esophagus [employer] 07/15/2024 [facility]-C01-21 3-L / / [id number] documented as of this encounter Advance Directives [...] the patient have Health Care Power of Rehabilitation Case Coordinator? No Care Teams Floor Associate Relationship Specialty Start Date End Date Lynette Jorge DO [address] [place] [address] PCP - General Family Medicine 06/25/16 documented as of this encounter
--- OUTSIDE RECORDS SUMMARY | 2023-07-26 18:25 | External Medical Summary ---
Author Name Unknown Address Unknown Organization K01:[facility] - [address] [place] [address] Laboratory Report Ordering Provider Test Date Status MICHEAL HESTER 06/08/2023 09:08:00 Final Observation Date Value Abnormality Reference (Units ) Status HbA1C 06/08/2023 09:08:00 5.8 Above high normal 4. 0-5.6 (%) Final The use of HbA1c to monitor glycemic status is based on normal hemoglobin and HbA composition. This test should not be used in patients with abnormal hemoglobin that affects the half life of the red blood cell or the in vivo glycation rates. Glucose, estimated average 06/08/2023 09:08:00 120 <126 (mg/dL) Final Performing Location [facility] - [address] [place] [address]
--- OUTSIDE RECORDS SUMMARY | 2023-07-26 18:25 | External Medical Summary ---
Author Name Unknown Address Unknown Organization K01:[facility] [place] [address] [facility] [address] Laboratory Report Ordering Provider Test Date Status MARLEN OLMOS 06/05/2023 09:53:16 Final hCG can serve as a screening assay for . However, [...] act+Beta subunit [Units/volume] in Serum or Plasma 06/05/2023 09:53:16 32.0 Above high normal <=1.0 (mIU/mL) Final Performing Location [facility] [place] [address] [facility] [address]
--- OUTSIDE RECORDS SUMMARY | 2023-07-26 18:25 | External Medical Summary | Summary of Care ---
Author Name Unknown Organization [facility] Address [address] [place] [address] Phone [phone] Care Team Providers Care Business Case Analyst Name Role Phone Lynette Jorge DO Primary Care Provider [phone] Reason for Visit * Reason Comments Outpatient Testing Encounter Details Date Type Department Care Team (Late st Contact Info) Description 06/05/2023 9:50 AM EDT Laboratory Laboratory, [facility] [address] [place] [address] [facility] [address] [place] [address] Early stage of Allergies Active Allergy Reactions Criticality Noted Date Comments Bactrim Hives High 07/06/2013 Dust Cough High 07/06/2013 Sneezing, coughing, asthma Nickel Rash 03/19/2021 Other Allergy (See Comments) Itching,Wheezing Medium 07/06/2013 Grass- redness, itching, asthma Pollen Cough High 07/06/2013 Sneezing, cough, asthma Sulfa Antibiotics Hives High 07/06/2013 Trimethoprim Hives 05/24/2018 documented as of this encounter (statuses as of 06/05/2023) Medications Medication Sig Dispensed Refills Start Date End Date Status polyethylene glycol 3350 (MIRALAX) packet Take 1 Packet by mouth daily. 14 Each 0 10/12/2018 Active Additional Information Patient taking differently:17 g OralDAILY PRN, Informant: Patient, Reported on 09/22/2022 saline (OCEAN) 0.65 % nasal spray Administer 1 [place] into nostril 2 times a day. And as needed for nasal congestion. 30 mL 12 11/10/2018 Active Vit-Fe Cws-AY-Afnnh (ONE-A-DAY WOMENS ) 28-0.8 & 223 MG [...] MCG/INH Inhalation Aerosol Powder Breath Activated (umeclidinium [place]) Inhale by mouth 1 Puff in the [...] after use. 12 g 6 09/11/2022 Active Norethindrone 0.35 MG Oral TabletIndications:E ncounter for initial prescription of contraceptive pills,Routine screening for STI (sexually transmitted infection) Take 1 Tablet by mouth in the morning. 28 Tablet 3 09/22/2022 Active Budesonide-Formoter ol Fumarate 160-4.5 MCG/ACT Inhalation [...] A DAY FOR 7 DAYS 0 Active Hospital, Clinic, or Other Facility Administered Medication Ordered Dose Route Frequency Start Date End Date Status Omalizumab (Xolair) inj 150 mgIndications:Severe persistent asthma without complication 150 mg SC [id number] 09/11/2022 Acti ve Albuterol Sulfate (Proventil) (2.5 MG/3ML) 0.083% inhalation solution 2.5 mgIndications:Severe persistent asthma with (acute) exacerbation 2.5 mg NEBULIZER ONCE PRN 02/02/2023 Acti ve Albuterol Sulfate (Proventil) (2.5 MG/3ML) 0.083% inhalation solution 2.5 mgIndications:Severe persistent asthma with acute exacerbation 2.5 mg NEBULIZER PRN 01/27/2023 01/27/2024 Active documented as of this encounter (statuses as of 06/05/2023) Active Problems Problem Noted Date Diagnosed Date [...] NOB Last Assessment & Plan: Continue MANAGER TRANSFUSION famotidine documented as of this encounter (statuses as of 06/05/2023) Resolved Problems Problem Noted Date Diagnosed Date [...] steroids and breathing treatments. Continuing on MANAGER TRANSFUSION inhalers and steroid 40mg daily. Pulmonary medicine [...] INFORMATION 09/28/2018 12/21/2018 Overview: Taking prometrium at [facility] Obesity in , antepartum 09/28/2018 07/12/2019 Overview: BMI: 31.92 kg/m at NOB Pt desires nutrition consult as this is her highest weight, feels it to be associated with prednisone use Early 1hr gtt normal Hypokalemia 01/13/2017 01/13/2017 Overview: 15/16 y/o while in hospital with continuous neb, went in to arrhythmia Single liveborn, born in [facility], delivered by section 10/03/2016 01/07/2017 INFORMATION 09/09/2016 01/07/2017 Overview: Pt needs to see arlin Peña section in [place] on 10/01/16. RSV (respiratory syncytial virus infection) [...] as of this encounter (statuses as of 06/05/2023) Immunizations Name Administration Dates Next Due H1N1 [...] in the Last Year Never true 03/31/2019 [place] Depression Scale Answer Date Recorded [place] Depression Scale Score 3 02/15/2020 The thought [...] 10:00 AM EST Nurse Only Pulmonary Medicine, [facility] [address] [facility] [place] [address] , Nurse Pulmonary [address] [facility] [place] [address] Pending Results Name Type Priority Associated Diagnoses Date /Time BETA-HCG, QUANTITATIVE Lab Routine Early stage of 06/05/2023 9:53 AM EDT Health Maintenance Due Date Last [...] this encounter Medical Devices Implanted Type Area Dryerman/Woman Device Identifier Shelf Expiration Date Model / Serial / Lot Suture Cinch Long - [id number] Implanted:Qty : 1 on 12/16/[address] MD at OR [facility] N/A: Esophagus [employer] 07/15/2024 [facility]-C01-21 3-L / / [id number] documented as of this encounter Visit Diagnoses Diagnosis Early stage of documented in this encounter Advance Directives Latest [...] the patient have Health Care Power of Wind Turbine Electrical Engineer? No Care Teams Business Case Analyst Relationship Specialty Start Date End Date Lynette Jorge DO [address] [address] PCP - General Family Medicine 06/25/16 documented as of this encounter
--- OUTSIDE RECORDS SUMMARY | 2023-07-26 18:25 | External Medical Summary | Summary of Care ---
Author Name Unknown Organization [facility] Address [address] [place] [address] Phone [phone] Care Team Providers Care Insulation Worker Apprentice Name Role Phone Ania Lynette Alejandro GUPTA Primary Care Provider [phone] Reason for Visit * Reason Onset Date Comments Medication Pre-auth 06/02/2023 Encounter Details Date Type Department Care Team (Late st Contact Info) Description 06/02/2023 Telephone Pulmonary Medicine, [facility] [address] [place] [address] Altagracia Choudhury MD [address] [place] [address] Medication Pre-auth Allergies Active Allergy [...] (OCEAN) 0.65 % nasal spray Administer 1 [place] into nostril 2 times a day. And as needed for nasal congestion. 30 mL 12 9 Active Vit-Fe Brc-AT-Hqfbz (ONE-A-DAY WOMENS ) 28-0.8 & 223 MG [...] MCG/INH Inhalation Aerosol Powder Breath Activated (umeclidinium [place]) Inhale by mouth 1 Puff in the [...] persistent asthma without complication 150 mg SC [id number] 09/11/2022 Acti ve Albuterol Sulfate (Proventil) (2.5 [...] of NOB Last Assessment & Plan: Continue COFFIN MAKER famotidine documented as of this encounter (statuses as of 06/02/2023) Resolved Problems Problem Noted Date Diagnosed Date Resolved Date Status asthmaticus 02/15/2019 9 Nocturnal hypoxemia due to asthma 12/31/2018 06/07/2019 Current chronic use of systemic steroids 12/31/2018 06/10/2022 High-risk 12/29/2018 07/12/20 Obesity, Class I, BMI 30.0-3 4.9 (see actual BMI) 11/05/2018 09/21/2019 Asthma exacerbation 11/05/2018 01/14/20 Severe persistent asthma wit h acute exacerbation 10/08/2018 04/15/2019 Last Assessment & Plan: Patient was recently discharged on similar symptoms. Doing better now after getting steroids and breathing treatments. Continuing on COFFIN MAKER inhalers and steroid 40mg daily. Pulmonary medicine [...] in to arrhythmia Single liveborn, born in [facility], delivered by section 10/03/2016 01/07/2017 INFORMATION 09/09/2016 01/07/2017 Overview: Pt needs to see arlin Peña section in [place] on 10/01/16. RSV (respiratory syncytial virus infection) [...] the Last Year Never true 03/31/2019 [place] Depression Scale Answer Date Recorded [place] Depression Scale Score 3 02/15/2020 The thought [...] as of this encounter Miscellaneous Notes * Addendum Note - Altagracia Choudhury MD [...] prior authorization for their Tezspire through their [facility] insurance. ID: [id number] BIN:[id number] PCN:[id number] Phone: Target ship date is new start. Thank you very much, Saadia Ba CPhT Entry Level Assistant Manager [facility] 06/02/2023,10:11 AM documented in this encounter Plan of Treatment Upcoming Encounters Date Type Department Care Team (Late st Contact Info) Description 06/03/2023 10:40 AM EDT Office Visit [facility] [place] [address] Ann [place] CRNP [address] [place] [address] 06/26/2023 10:00 AM EST Nurse Only Pulmonary Medicine, [facility] [address] [facility] [place] [address] [place], Nurse Pulmonary [address] [facility] [place] [address] Health Maintenance Due Date Last Done Comments [...] this encounter Medical Devices Implanted Type Area Ship Joiner Device Identifier Shelf Expiration Date Model / Serial / Lot Suture Cinch Long - [id number] Implanted:Qty : 1 on 12/16/[address] MD at OR [facility] N/A: Esophagus [employer] 07/15/2024 [facility]-C01-21 3-L / / [id number] documented as of this encounter Advance Directives [...] the patient have Health Care Power of Cyber Security Consultant? No Care Teams Insulation Worker Apprentice Relationship Specialty Start Date End Date Lynette Jorge DO [address] [address] PCP - General Family Medicine 06/25/16 documented as of this encounter
--- OUTSIDE RECORDS SUMMARY | 2023-07-26 18:25 | External Medical Summary | Summary of Care ---
Author Name Unknown Organization [facility] Address [address] [place] [address] Phone [phone] Care Team Providers Care Toe Trimmer Name Role Phone Lynette Jorge DO Primary Care Provider [phone] Reason for Visit * Reason Comments Hospital Follow-Up Patient presents in office today for a [facility] ER hospital follow-up visit on 05/29/2023 due to Asthma Exacerbation. Encounter Details Date Type Department Care Team (Late st Contact Info) Description 06/03/2023 10:40 AM EDT Office [facility] [address] [facility] [address] Ann Vernon CR[facility] [address] [facility] [address] Severe persistent asthma with acute exacerbation*; Weight gain; Current chronic use of systemic steroids Allergies Active Allergy Reactions Criticality Noted Date Comments Bactrim Hives High 07/06/2013 Dust Cough High 07/06/2013 Sneezing, coughing, asthma Nickel Rash 03/19/2021 Other Allergy (See Comments) Itching,Wheezing Medium 07/06/2013 Grass- redness, itching, asthma Pollen Cough High 07/06/2013 Sneezing, cough, asthma Sulfa Antibiotics Hives High 07/06/2013 Trimethoprim Hives 05/24/2018 documented as of this encounter (statuses as of 06/03/2023) Medications Medication Sig Dispensed Refills Start Date [...] congestion. 30 mL 12 11/10/2018 Active Vit-Fe Fqy-CR-Akmuw (ONE-A-DAY WOMENS ) 28-0.8 & 223 MG [...] MCG/INH Inhalation Aerosol Powder Breath Activated (umeclidinium [place]) Inhale by mouth 1 Puff in the [...] persistent asthma without complication 150 mg SC [id number] 09/11/2022 Acti ve Albuterol Sulfate (Proventil) (2.5 MG/3ML) 0.083% inhalation solution 2.5 mgIndications:Severe persistent asthma with (acute) exacerbation 2.5 mg NEBULIZER ONCE PRN 02/02/2023 Acti ve Albuterol Sulfate (Proventil) (2.5 MG/3ML) 0.083% inhalation solution 2.5 mgIndications:Severe persistent asthma with acute exacerbation 2.5 mg NEBULIZER PRN 01/27/2023 01/27/2024 Active documented as of this encounter (statuses as of 06/03/2023) Active Problems Problem Noted Date Diagnosed Date [...] Asthma, severe persistent 07/22/2013 Overview: Admitted to [facility] for acute exacerbation on 10/08/18-10/11/18. Has been admitted monthly since last January. Takes deltasone 10mg daily GERD (gastroesophageal reflux disease) 3 Overview: Nissin fundoplication x2. Not on meds for GERD at time of NOB Last Assessment & Plan: Continue SEMI AUTOMATIC SEWING MACHINE OPERATOR famotidine documented as of this encounter (statuses as of 06/03/2023) Resolved Problems Problem Noted Date Diagnosed Date [...] getting steroids and breathing treatments. Continuing on SEMI AUTOMATIC SEWING MACHINE OPERATOR inhalers and steroid 40mg daily. Pulmonary [...] needs to see arlin Peña section in [place] on 10/01/16. RSV (respiratory syncytial virus infection) [...] as of this encounter (statuses as of 06/03/2023) Immunizations Name Administration Dates Next Due H1N1 [...] in the Last Year Never true 03/31/2019 [place] Depression Scale Answer Date Recorded [place] Depression Scale Score 3 02/15/2020 The thought [...] Taken Comments Blood Pressure - - Pulse 93 06/03/2023 10:55 AM EDT Temperature - - Respiratory Rate 20 06/03/2023 10:55 AM EDT Oxygen Saturation 99% 06/03/2023 10:55 AM EDT Inhaled Oxygen Concentration - - Weight 83.2 kg (183 lb 8 oz) 06/03/2023 10:55 AM EDT Height 165.1 cm (5' 5") 06/03/2023 10:55 AM EDT Body Mass Index 30.54 06/03/2023 10:55 AM EDT documented in this encounter Functional Status Functional [...] as of this encounter Progress Notes * ESTUARDO Kelly - 06/03/2023 11:00 AM EDT Follow up Family Medicine Visit CC: Chief Complaint Patient presents with Hospital Follow-Up Patient presents in office today for a [facility] ER hospital follow-up visit on 05/29/2023 due to AsthmaExacerbation. History of Present Illness: Marianne Valenzuela is a 33 year old female presenting for ER followup. She was seen on . Unknown trigger. Denies URI symptoms. This slowly worsened over 3 days. Today she is having better abilityto take deep breaths. Some inspiratory wheezing. Albuterol helps. She started extended course of steroids. +wheezing +cough +sob Treated with nebulizer and steroid. Last xolair dose was Seen by pulm on 06/01/2023. Now on extended course of prednisone per pulm. Gaining weight with recurrent steroids. 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, treated with APC/bienvenido fundoplication found/ESOPHAGOGASTRODUODENOSCOPY (EGD), FLEXIBLE, TRANSORAL, DIAGNOSTIC performed by Ave Temple MD at [facility] EGD, FLEXIBLE, DIAGNOSTIC 04/24/2021 normal / [facility] ESOPHAGOGASTRIC FUNDOPLASTY 1991; 2009 Bienvenido x 2 HYSTEROSCOPY W/BIOPSY AND/OR POLYPECTOMY W/WO D&C N/A 06/06/2021 HYSTEROSCOPY WITH BIOPSY AND/OR POLYPECTOMY WITH OR WITHOUT D&C performed by Deisy Chun MD at OR [facility] Outpatient Medications Marked as Taking for the 06/03/23 encounter (Office Visit) with ESTUARDO Kelly Medication Sig Doxycycline Hyclate 100 MG Oral Capsule TAKE 1 CAPSULE BY MOUTH TWICE A DAY FOR 7 DAYS Nucala 100 MG/ML Subcutaneous Solution Auto-injector (Mepolizumab) Inject 1 mL under the skin every4 weeks. predniSONE 5 MG Oral Tablet (Deltasone) Take 1 Tablet by mouth in the morning. every morning with food, as instructed.. Albuterol Sulfate HFA 108 (90 Base) MCG/ACT Inhalation Aerosol Solution INHALE 2 PUFFS EVERY 4 HOURS NEEDED for cough, wheeze, or SOB EpiPen 2-Renan 0.3 MG/0.3ML Injection Solution Auto-injector For a severe reaction: Inject in outer thigh following instructions on package and go to the Emergency room. Budesonide-Formoterol Fumarate 160-4.5 MCG/ACT Inhalation Aerosol (Symbicort) Inhale 2 Puffs by mouth in the morning and 2 Puffs before bedtime. Norethindrone 0.35 MG Oral Tablet Take 1 Tablet by mouth in the morning. Albuterol Sulfate (2.5 MG/3ML) 0.083% Inhalation Nebulization Solution (Proventil) Inhale 1 Vial via nebulizer every 4 hours as needed for Wheezing or Shortness of Breath. Fluticasone Propionate HFA 220 MCG/ACT Inhalation Aerosol (Flovent HFA) Inhale 2 Puffs by mouth every night at bedtime. with chamber. Rinse mouth after use. guaiFENesin ER 600 MG Oral Tablet Extended Release 12 Hour Take 1 Tablet by mouth 2 times a day as needed for Congestion. Take with plenty of water. Do not cut, crush or chew Omalizumab 150 MG Subcutaneous Solution Reconstituted (Xolair) Inject 300 mg under the skin every 4weeks. Incruse Ellipta 62.5 MCG/INH Inhalation Aerosol Powder Breath Activated (umeclidinium [place]) Inhale by mouth 1 Puff in the morning. Omeprazole 20 MG Oral Capsule Delayed Release (PriLOSEC) Take by mouth 1 Capsule in the morning. Loratadine 10 MG Oral Tablet (Claritin) 1 Tablet. oxygen IN GAS Use as directed. 2 lpm as needed Fluticasone Propionate 50 MCG/ACT Nasal Suspension (Flonase) Administer 2 Sprays into each nostril daily. Topiramate 50 MG Oral Tablet (topAMAX) Take 1 Tablet by mouth in the morning and 1 Tablet before bedtime. Montelukast Sodium 10 MG Oral Tablet (Singulair) Take 1 Tab by mouth daily. Vit-Fe Lqp-TW-Fqhyk (ONE-A-DAY WOMENS ) 28-0.8 & 223 MG MISC Take 1 Tab by mouth daily. saline (OCEAN) 0.65 % nasal spray Administer 1 [place] into nostril 2 times a day. And as needed for nasal congestion. polyethylene glycol 3350 (MIRALAX) packet Take 1 Packet by mouth daily. (Patient taking differently: Take 1 Packet by mouth daily as needed.) Current Facility-Administered Medications for the 06/03/23 encounter (Office Visit) with ESTUARDO Kelly Medication Albuterol Sulfate (Proventil) (2.5 MG/3ML) 0.083% inhalation solution 2.5 mg Albuterol Sulfate (Proventil) (2.5 MG/3ML) 0.083% inhalation solution 2.5 mg Omalizumab (Xolair) inj 150 mg Review of patient's allergies indicates: Allergen Reactions Bactrim Hives Dust Cough Sneezing, coughing, asthma Pollen Cough Sneezing, cough, asthma Sulfa Antibiotics Hives Other Allergy (See Comments) Itching and Wheezing Grass- redness, itching, asthma Nickel Rash Trimethoprim Hives Most Recent Immunizations Administered Date(s) Administered H1N1 2009 Influenza, IM 07/30/2009 HPV Vaccine, 9-Valent 04/03/2023 Hepatitis B Vaccine, Recombinant, Adjuvanted, 20 mcg/mL (Heplisav-B) 04/03/2023 MMR - Measles/Mumps/Rubella Vaccine 05/14/2019 Pneumococcal Conjugate Vacc, 13 Valent (Prevnar) 08/05/2018 Pneumococcal Polysaccharide PPV23 (Pneumovax) 03/10/2018 SEASONAL INFLUENZA, PF, 6 M & Above, IM , (FLULAVAL or FLUZONE) 09/23/2022 Seasonal Influenza Virus Vaccine, Unspecified Formulation 04/18/2019 Seasonal Influenza, Quadrivalent, No Preserve, IM 07/10/2016 Seasonal Influenza, Split, IIV3, With Preserve, Inj 04/10/2017 TDAP (age 10 and older)(Boostrix) 05/05/2019 Xolair Injection 03/30/2014 Review of Systems: Review of Systems Constitutional: Positive for fatigue and unexpected weight change. Respiratory: Positive for cough, shortness of breath and wheezing. Cardiovascular: Negative for chest pain. Physical Exam: Pulse 93 | Resp 20 | Ht 1.651 m (5' 5") | Wt 83.2 kg (183 lb 8 oz) | SpO2 99% | BMI 30.54 kg/m | BSA 1.95 m Physical Exam HENT: Head: Normocephalic. Cardiovascular: Rate and Rhythm: Normal rate and regular rhythm. Pulmonary: Effort: Pulmonary effort is normal. Breath sounds: Decreased breath sounds and wheezing present. Neurological: Mental Status: She is alert. Assessment and Plan: 1. Severe persistent asthma with acute exacerbation Continues plan of care per pulm Continue prednisone Continue symbicort Continue albuterol 2. Weight gain 30+ lbs with recurrent steroid R/o insulin resistance and prediabetes Consider ozempic - BASIC METABOLIC PANEL; Future - INSULIN; Future - HEMOGLOBIN A1C; Future 3. Current chronic use of systemic steroids Consider bone scan I have advised the patient to call our office incase of any worsening or new symptoms. I spent a total of 40-54 minutes (exact time 42 mins) on the date of service in preparation, delivery, and documentation of the care provided to Marianne Valenzuela excluding any time spent in the performance of separately billed services. Rashad, MSN, ESTUARDO [facility] documented in this encounter Nursing Notes * SEAN Maldonado - 06/03/2023 10:52 AM EDT The patient has been properly identified by confirmation of name and date of . Chief Complaint Patient presents with Hospital Follow-Up Patient presents in office today for a [facility] hospital follow-up visit on 05/29/2023 due to AsthmaExacerbation. documented in this encounter Plan of Treatment Upcoming Encounters Date Type Department Care Team (Late st Contact Info) Description 06/26/2023 10:00 AM EST Nurse Only Pulmonary Medicine, [facility] [address] [facility] [place] [address] , Nurse Pulmonary [address] [facility] [place] [address] Scheduled Orders Name Type Priority Associated Diagnoses Orde r Schedule BASIC METABOLIC PANEL Lab Routine Weight gain Expected: 06/03/2023 (Approximate), Expires: 06/02/2024 INSULIN Lab Routine Weight gain Expected: 06/03/2023 (Approximate), Expires: 06/02/2024 HEMOGLOBIN A1C Lab Routine Weight gain Expected: 06/03/2023 (Approximate), Expires: 06/02/2024 Health Maintenance Due Date Last Done Comments [...] this encounter Medical Devices Implanted Type Area Can Technician Device Identifier Shelf Expiration Date Model / Serial / Lot Suture Cinch Long - [id number] Implanted:Qty : 1 on 12/16/[address] MD at OR [facility] N/A: Esophagus [employer] 07/15/2024 [facility]-C01-21 3-L / / [id number] documented as of this encounter Visit Diagnoses Diagnosis Severe persistent asthma with acute exacerbation- Primary Unspecified asthma, with exacerbation Weight gain Abnormal weight gain Current chronic use of systemic steroids documented in this encounter Advance Directives Latest [...] the patient have Health Care Power of Cloud Consultant? No Care Teams Toe Trimmer Relationship Specialty Start Date End Date Lynette Jorge DO [address] [address] PCP - General Family Medicine 06/25/16 documented as of this encounter
--- OUTSIDE RECORDS SUMMARY | 2023-07-26 18:25 | External Medical Summary | Summary of Care ---
Author Name Unknown Organization [facility] Address [address] [place] [address] Phone [phone] Care Team Providers Care Reeling Machine Setup Operator Name Role Phone Ania Lynette Alejandro GUPTA Primary Care Provider [phone] Reason for Visit * Reason Onset Date Comments Medication Pre-auth 06/02/2023 Encounter Details Date Type Department Care Team (Late st Contact Info) Description 06/02/2023 Telephone Pulmonary Medicine, [place] [address] [place] [address] Altagracia Choudhury MD [address] [place] [address] Medication Pre-auth Allergies Active Allergy [...] (OCEAN) 0.65 % nasal spray Administer 1 [place] into nostril 2 times a day. And as needed for nasal congestion. 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 Continuing on RADIOGRAPHER TECHNOLOGIST inhalers and steroid 40mg daily. Pulmonary medicine [...] needs to see arlin Peña section in [place] on 10/01/16. RSV (respiratory syncytial virus [...] any current needs or questions 04/29/2019 Chelsey eDjesus RN 04/29/2019 History of section complicating 04/15/2016 [...] in the Last Year Never true 03/31/2019 [place] Depression Scale Answer Date Recorded [place] Depression Scale Score 3 02/15/2020 The thought [...] prior authorization for their [employer] through their [employer] insurance. ID: [id number] [id number] PCN:[id number] Phone: [employer] ship date is new start. Thank you very much, Saadia Ba CPhT Customer Success Intern [facility] 06/02/2023,10:11 AM documented in this encounter Plan of Treatment Upcoming Encounters Date Type Department Care Team (Late st Contact Info) Description 06/03/2023 10:40 AM EDT Office Visit Family Practice [facility] [place] [address] Ann Vernon CRNP [address] [place] [address] 06/26/2023 10:00 AM EST Nurse Only Pulmonary Medicine, [facility] [place] [address] G[address], Nurse Pulmonary [address] [facility] [place] [address] Health Maintenance Due Date Last Done Comments [...] this encounter Medical Devices Implanted Type Area Bridge Leverman Device Identifier Shelf Expiration Date Model / Serial / Lot Suture Cinch Long - [id number] Implanted:Qty : 1 on 12/16/[address] MD at OR [facility] N/A: Esophagus [employer] 07/15/2024 [facility]-C01-21 3-L / / [id number] documented as of this encounter Advance Directives [...] the patient have Health Care Power of Crystal Machining Coordinator? No Care Teams Reeling Machine Setup Operator Relationship Specialty Start Date End Date Lynette Jorge DO [address] [address] PCP - General Family Medicine 06/25/16 documented as of this encounter
--- OUTSIDE RECORDS SUMMARY | 2023-07-26 18:25 | External Medical Summary ---
Author Name Unknown Address Unknown Organization [id number]:[facility] [place] [address] [place] [address] Laboratory Report Ordering Provider Test Date Status KORY HESTERPretty 06/08/2023 09:08:00 Final Observation Date Value Abnormality Reference (Units ) Status Insulin level 06/08/2023 09:08:00 46 Above high shanda l 3-25 (uU/mL) Final The above reference interval is based on fasting status. Performing Location [facility] [place] [address] [place] [address]
--- OUTSIDE RECORDS SUMMARY | 2023-07-26 18:25 | External Medical Summary | Summary of Care ---
Author Name Unknown Organization [facility] Address [address] [place] [address] Phone [phone] Care Team Providers Care Automatic Machine Attendant Name Role Phone Lynette Jorge DO Primary Care Provider [phone] Encounter Details Date Type Department Care Team (Late st Contact Info) Description 06/08/2023 Telephone Gynecology/Obstetrics [facility] [address] [facility] [place] [address] Leonardo Gallegos MD [address] [facility] [place] [address] Allergies Active Allergy Reactions Criticality Noted Date [...] (OCEAN) 0.65 % nasal spray Administer 1 [place] into nostril 2 times a day. And as needed for nasal congestion. 30 mL 12 9 Active Vit-Fe Uwa-BD-Dchak (ONE-A-DAY WOMENS ) 28-0.8 & 223 MG [...] MCG/INH Inhalation Aerosol Powder Breath Activated (umeclidinium [place]) Inhale by mouth 1 Puff in the [...] 4 weeks. 1 mL 12 3 Active Doxycycline Hyclate 100 MG Oral Capsule TAKE 1 CAPSULE BY MOUTH TWICE A DAY FOR 7 DAYS 0 Active Progesterone 200 MG Oral Capsule (Prometrium) Administer 1 Capsule into the vagina every night at bedtime. 30 Capsule 3 3 Active Norethindrone 0.35 MG Oral TabletIndications: Encounter for initial prescription of contraceptive pills,Routine screening for STI (sexually transmitted infection) Take 1 Tablet by mouth in the morning. 28 Tablet 3 3 06/08/20 23 Discontinued Hospital, Clinic, or Other Facility Administered Medication Ordered Dose Route Frequency Start Date End Date Status Omalizumab (Xolair) inj 150 mgIndications:Severe persistent asthma without complication 150 mg SC [id number] 09/11/2022 Acti ve Albuterol Sulfate (Proventil) (2.5 [...] Asthma, severe persistent 07/22/2013 Overview: Admitted to [facility] for acute exacerbation on 10/08/18-10/11/18. Has been admitted monthly since last January. Takes deltasone 10mg daily GERD (gastroesophageal reflux disease) 3 Overview: Nissin fundoplication x2. Not on meds for GERD at time of NOB Last Assessment & Plan: Continue CABINET WORKER famotidine documented as of this encounter (statuses [...] getting steroids and breathing treatments. Continuing on CABINET WORKER inhalers and steroid 40mg daily. Pulmonary medicine [...] in to arrhythmia Single liveborn, [facility] in [facility], delivered by section 10/03/2016 01/07/2017 INFORMATION 09/09/2016 01/07/2017 Overview: Pt needs to see arlin Peña section in [place] on 10/01/16. RSV (respiratory syncytial virus infection) [...] week Copy of records given 07/30/2016 Sophia Mendez, SANDRA 07/30/16 Problem Action Taken Date entered Entered [...] in the Last Year Never true 03/31/2019 [place] Depression Scale Answer Date Recorded [place] Depression Scale Score 3 02/15/2020 The thought [...] Telephone Encounter - Hue Rueda RN - 06/08/2023 8:35 AM EDT Spoke with pt. Advised that DR. Eckert ordered her hcg level. Pt aware. * Telephone Encounter - Hue Rueda RN - 06/08/2023 8:19 AM EDT Pt also asking if she can be started on progesterone? She had to take this in previous pregnancies until 12 weeks. HCG level was 32 Should she plan to repeat that? Denies any bleeding but asking to start the progesterone as well. Will review with provider gate person and call pt back. Pt can be reachedat [phone]. * Telephone Encounter - Grace Patel LPN - 06/08/2023 8:03 AM EDT Pt is calling in asking if another order for a beta HCG can be placed for her to complete today. States she had one done on Thursday and was told to have another one done 48 hours from that. Does not look like there is an order in for pt. Can you send to gate person to have order signed? Grace Patel LPN documented in this encounter Plan of Treatment Upcoming Encounters Date Type Department Care Team (Late st Contact Info) Description 06/26/2023 10:00 AM EST Nurse Only Pulmonary Medicine, [facility] [address] [facility] [place] [address] [address], Nurse Pulmonary [address] [facility] [place] [address] Scheduled Orders Name Type Priority Associated Diagnoses Orde r Schedule BETA-HCG, QUANTITATIVE Lab Routine Threatened in early 5 Occurrences starting 06/08/2023 until 06/08/2024 Health Maintenance Due Date Last Done Comments [...] this encounter Medical Devices Implanted Type Area Internet Webmaster Device Identifier Shelf Expiration Date Model / Serial / Lot Suture Olivia Baer - [id number] Implanted:Qty : 1 on 12/16/[address] MD at OR [facility] N/A: Esophagus [employer] 07/15/2024 [facility]-C01-21 3-L / / [id number] documented as of this encounter Visit Diagnoses Diagnosis Threatened in early - Primary Threatened , unspecified as to episode of [...] the patient have Health Care Power of Flat Polisher? No Care Teams Automatic Machine Attendant Relationship Specialty Start Date End Date Lynette Jorge DO [address] [address] PCP - General Family Medicine 06/25/16 documented as of this encounter
--- OUTSIDE RECORDS SUMMARY | 2023-07-26 18:25 | External Medical Summary ---
Author Name Unknown Address Unknown Organization K01:[facility] [place] - [address] [place] [address] Laboratory Report Ordering Provider Test Date Status MICHEAL HESTER 06/08/2023 09:08:00 Final Observation Date Value Abnormality Reference (Units ) Status BUN 06/08/2023 09:08:00 15 6-20 (mg/dL) Final Creatinine 06/08/2023 09:08:00 1.0 0.5-1.0 (mg/dL) Final Glomerular filtration rate/1.73 sq M.predicted [Volume Rate/Area] in Serum, Plasma or Blood by Creatinine-based formula (CKD-EPI) 06/08/2023 09:08:00 80 >=60 (mL/min) Final eGFR is calculated based on the CKD-EPI 2020 equation SODIUM 06/08/2023 09:08:00 137 135-146 (m mol/L) Final Potassium 06/08/2023 09:08:00 3.9 3.5-5.1 (m mol/L) Final Cl 06/08/2023 09:08:00 102 98-107 (mm ol/L) Final CO2 06/08/2023 09:08:00 25 22-32 (mmo l/L) Final Anion gap 06/08/2023 09:08:00 10 7-15 (mmol /L) Final Glucose 06/08/2023 09:08:00 82 70-120 (mg /dL) Final Calcium 06/08/2023 09:08:00 9.6 8.4-10.2 ( mg/dL) Final Performing Location [facility] - [address] [place] [address]
--- OUTSIDE RECORDS SUMMARY | 2023-07-26 18:25 | External Medical Summary | Summary of Care ---
Author Name Unknown Organization [facility] Address [address] [place] [address] Phone [phone] Care Team Providers Care Digester Capper Name Role Phone Lynette Jorge DO Primary Care Provider [phone] Reason for Visit * Reason Onset Date Comments Precert Pending 06/02/2023 Nucala Encounter Details Date Type Department Care Team (Late st Contact Info) Description 06/02/2023 Telephone Pulmonary Medicine, [place] [address] [place] [address] Mann Nunez MD [address], [place] [id number] Precert Pending (Nucala ) Allergies Active Allergy Reactions Criticality Noted Date Comments Bactrim Hives High 07/06/2013 Dust Cough High 07/06/2013 Sneezing, coughing, asthma Nickel Rash 03/19/2021 Other Allergy (See Comments) Itching,Wheezing Medium 07/06/2013 Grass- redness, itching, asthma Pollen Cough High 07/06/2013 Sneezing, cough, asthma Sulfa Antibiotics Hives High 07/06/2013 Trimethoprim Hives 05/24/2018 documented as of this encounter (statuses as of 06/04/2023) Medications Medication Sig Dispensed Refills Start Date End Date Status polyethylene glycol 3350 (MIRALAX) packet Take 1 Packet by mouth daily. 14 Each 0 10/12/2018 Active Additional Information Patient taking differently:17 g OralDAILY PRN, Informant: Patient, Reported on 09/22/2022 saline (OCEAN) 0.65 % nasal spray Administer 1 [place] into nostril 2 times a day. And as needed for nasal congestion. 30 mL 12 11/10/2018 Active Vit-Fe Hel-QP-Obxhg (ONE-A-DAY WOMENS ) 28-0.8 & 223 MG [...] MCG/INH Inhalation Aerosol Powder Breath Activated (umeclidinium [place]) Inhale by mouth 1 Puff in the [...] 4 weeks. 1 mL 12 06/02/2023 Active Hospital, Clinic, or Other Facility Administered Medication Ordered Dose Route Frequency Start Date End Date Status Omalizumab (Xolair) inj 150 mgIndications:Severe persistent asthma without complication 150 mg SC [id number] 09/11/2022 Acti ve Albuterol Sulfate (Proventil) (2.5 MG/3ML) 0.083% inhalation solution 2.5 mgIndications:Severe persistent asthma with (acute) exacerbation 2.5 mg NEBULIZER ONCE PRN 02/02/2023 Acti ve Albuterol Sulfate (Proventil) (2.5 MG/3ML) 0.083% inhalation solution 2.5 mgIndications:Severe persistent asthma with acute exacerbation 2.5 mg NEBULIZER PRN 01/27/2023 01/27/2024 Active documented as of this encounter (statuses as of 06/04/2023) Active Problems Problem Noted Date Diagnosed Date [...] Asthma, severe persistent 07/22/2013 Overview: Admitted to [facility] for acute exacerbation on 10/08/18-10/11/18. Has been admitted monthly since last January. Takes deltasone 10mg daily GERD (gastroesophageal reflux disease) 3 Overview: Nissin fundoplication x2. Not on meds for GERD at time of NOB Last Assessment & Plan: Continue TERRAZZO LAYER HELPER famotidine documented as of this encounter (statuses as of 06/04/2023) Resolved Problems Problem Noted Date Diagnosed Date [...] getting steroids and breathing treatments. Continuing on TERRAZZO LAYER HELPER inhalers and steroid 40mg daily. Pulmonary medicine [...] INFORMATION 09/28/2018 12/21/2018 Overview: Taking prometrium at [facility] Obesity in , antepartum 09/28/2018 07/12/2019 Overview: BMI: 31.92 kg/m at NOB Pt desires nutrition consult as this is her highest weight, feels it to be associated with prednisone use Early 1hr gtt normal Hypokalemia 01/13/2017 01/13/2017 Overview: 16/16 y/o while in hospital with continuous neb, went in to arrhythmia Single liveborn, [place], delivered by section 10/03/2016 01/07/2017 INFORMATION 09/09/2016 01/07/2017 Overview: Pt needs to see arlin Peña section in [place] on 10/01/16. RSV (respiratory syncytial virus [...] this week Copy of records given 07/30/2016 Sophai Mendez RN 07/30/16 Problem Action Taken Date [...] having any current needs or questions 04/29/2019 hCelsey Dejesus, RN 04/29/2019 History of section complicating [...] as of this encounter (statuses as of 06/04/2023) Immunizations Name Administration Dates Next Due H1N1 [...] in the Last Year Never true 03/31/2019 Ransom Depression Scale Answer Date Recorded Ransom Depression Scale Score 3 02/15/2020 The thought [...] encounter Miscellaneous Notes * Telephone Encounter - Huedinah Houser, [facility] - 06/04/2023 2:52 PM EDT Please see Pulmonary pre-cert request for Mepolizumab (Nucala) 100mg/ml Pen - 100mg every 4 weeks .- route referral message with approval, denial or questions back to Pulmonary Pharmacist [place] [phone]. Current Asthma Medications: Controller(s): - Symbicort 160-4.5 [...] 5 5 Each Marilyn Gallegos MD E [facility]/pharmacy #[id number]... PREDNISONE 10MG TAB(S) 08/15/2022 11 [...] 0.44 ! Birch IgE <0.10 kUa/L <0.10 [place] Maple IgE <0.10 kUa/L <0.10 [place] IgE <0.10 kUa/L <0.10 Elm IgE <0.10 kUa/L <0.10 [place] IgE <0.10 kUa/L <0.10 Pecan Calloway IgE <0.10 kUa/L <0.10 [place] Tree IgE <0.10 kUa/L <0.10 [place] IgE <0.10 kUa/L <0.10 Cocklebur IgE <0.10 kUa/L <0.10 Common Ragweed IgE <0.10 kUa/L 0.33 Zimbabwean Plantain IgE <0.10 kUa/L <0.10 Cook's Quarter IgE <0.10 kUa/L <0.10 Mugwort IgE <0.10 kUa/L <0.10 Pigweed IgE <0.10 kUa/L <0.10 Sheep [place] IgE <0.10 kUa/L <0.10 !: Data is [...] [phone] * Telephone Encounter - SEAN Ortiz - 06/02/2023 12:24 PM EDT Pulmonary Medicine [...] - Severe persistent asthma, uncomplicated J45.50 Location: [facility]: Route pre-cert request to [facility]. Referral to pharmacist for: Clinical co-management. Medication(s) Tried/Failed/Contraindicated: Xolair See corresponding visit note(s) for additional supporting clinical information. Office Information: Prescriber: Dr. Nunez documented in this encounter Plan of Treatment Upcoming Encounters Date Type Department Care Team (Late st Contact Info) Description 06/26/2023 10:00 AM EST Nurse Only Pulmonary Medicine, [address] [place] [address] , Nurse Pulmonary [address] [place] [address] Health Maintenance Due Date Last Done Comments [...] this encounter Medical Devices Implanted Type Area Elevator Repairer Helper Device Identifier Shelf Expiration Date Model / Serial / Lot Suture Cinch Long - [id number] Implanted:Qty : 1 on 12/16/[address] MD at OR [facility] N/A: Esophagus [employer] 07/15/2024 [facility]-C01-21 3-L / / [id number] documented as of this encounter Advance Directives [...] the patient have Health Care Power of X [employer] Electronics Wiring Technician? No Care Teams Digester Capper Relationship Specialty Start Date End Date Lynette Jorge DO [address] [place] [address] PCP - General Family Medicine 06/25/16 documented as of this encounter
--- OUTSIDE RECORDS SUMMARY | 2023-07-26 18:25 | External Medical Summary | Summary of Care ---
Author Name Unknown Organization [facility] Address [address] [place] [address] Phone [phone] Care Team Providers Care Flitch Hanger Name Role Phone Lynette Jorge DO Primary Care Provider [phone] Encounter Details Date Type Department Care Team (Late st Contact Info) Description 06/05/2023 Telephone Gynecology/Obstetrics [facility] [address] [facility] [place] [address] Leonardo Gallegos MD [address] [facility] [place] [address] Allergies Active Allergy Reactions Criticality Noted Date [...] (OCEAN) 0.65 % nasal spray Administer 1 [place] into nostril 2 times a day. And as needed for nasal congestion. 30 mL 12 9 Active Vit-Fe Iqz-YM-Qgtss (ONE-A-DAY WOMENS ) 28-0.8 & 223 MG [...] MCG/INH Inhalation Aerosol Powder Breath Activated (umeclidinium [place]) Inhale by mouth 1 Puff in the [...] A DAY FOR 7 DAYS 0 Active Norethindrone 0.35 MG Oral TabletIndications: Encounter for initial prescription of contraceptive pills,Routine screening for STI (sexually transmitted infection) Take 1 Tablet by mouth in the morning. 28 Tablet 3 3 06/08/20 23 Discontinued Hospital, Clinic, or Other Facility Administered Medication Ordered Dose Route Frequency Start Date End Date Status Omalizumab (Xolair) inj 150 mgIndications:Severe persistent asthma without complication 150 mg SC [id number] 09/11/2022 Acti ve Albuterol Sulfate (Proventil) (2.5 [...] Asthma, severe persistent 07/22/2013 Overview: Admitted to [facility] for acute exacerbation on 10/08/18-10/11/18. Has been admitted monthly since last January. Takes deltasone 10mg daily GERD (gastroesophageal reflux disease) 3 Overview: Nissin fundoplication x2. Not on meds for GERD at time of NOB Last Assessment & Plan: Continue YARDAGE ESTIMATOR famotidine documented as of this encounter (statuses [...] getting steroids and breathing treatments. Continuing on YARDAGE ESTIMATOR inhalers and steroid 40mg daily. Pulmonary medicine [...] or Metamucil (safe after 12 weeks) 09/28/2018 Heu Rueda RN 09/28/2018 Problem Action Taken Date [...] 09/28/2018 12/21/2018 Overview: Taking prometrium at [facility] Obesity in , antepartum 09/28/2018 [...] needs to see arlin Peña section in [place] on 10/01/16. RSV (respiratory syncytial virus infection) [...] in the Last Year Never true 03/31/2019 [place] Depression Scale Answer Date Recorded [place] Depression Scale Score 3 02/15/2020 The thought [...] Encounter - Hue Rueda RN - 06/08/2023 8:23 AM EDT See other encounter. * Telephone Encounter - Fariha Mckeon LPN - 06/05/2023 8:13 AM EDT Pt called in finding out she is early and asking for a Beta to confirm. I told pt we can put a beta in for her and she can go to any lab to have drawn. Pt called to schedule her first NOB appt. LMP 05/02/23 Pt states she did have a positive UPT on 06/05/23 Were you using any type of control? none Any bleeding or any severe pelvic pain?none Are you taking any vitamins?no By LMP pt is approx 5 wks. Pt will need scheduled after 06/27/23 Insurance [employer] Will await betas and then schedule nob documented in this encounter Plan of Treatment Upcoming Encounters Date Type Department Care Team (Late st Contact Info) Description 06/26/2023 10:00 AM EST Nurse Only Pulmonary Medicine, [facility] [address] [place] [address] , Nurse Pulmonary [address] [place] [address] Health Maintenance Due Date Last Done Comments [...] this encounter Medical Devices Implanted Type Area Animal Services Officer Device Identifier Shelf Expiration Date Model / Serial / Lot Suture Cinch Long - [id number] Implanted:Qty : 1 on 12/16/[address] MD at OR [facility] N/A: Esophagus [employer] 07/15/[address] [facility]-C01-21 3-L / / [id number] documented as of this encounter Results * (ABNORMAL) BETA-HCG, QUANTITATIVE (06/05/2023 9:53 AM EDT) Beta-HCG, Quantitative 32.0(H) <=1.0 mIU/mL 06/05/2023 9:16 PM EDT LAB[facility]ATORY [facility] Blood Venous blood specimen / Unknown Venipuncture / Unknown 06/05/2023 9:53 AM EDT 06/05/2023 9:53 AM EDT Narrative LABORATORY [facility] - 06/05/2023 9:16 PM EDT hCG can serve as a screening assay for . However, early may not give a positive hCG test result. In addition, some non- women may have a hCG result slightly higher than the reference limit. Careful interpretation of the hCG with clinical history is required to determine whether the patient may be . Leonardo Gallegos MD LAB BLOOD ORDERABLES LABORATORY [facility] [address] [place] [address] documented in this encounter Visit Diagnoses Diagnosis Early stage [...] the patient have Health Care Power of Control Manager? No Care Teams Flitch Hanger Relationship Specialty Start Date End Date Lynette Jorge DO [address] [place] [address] PCP - General Family Medicine 06/25/16 documented as of this encounter
--- OUTSIDE RECORDS SUMMARY | 2023-07-26 18:26 | External Medical Summary | Summary of Care ---
Author Name Unknown Organization [facility] Address [address] [place] [address] Phone [phone] Care Team Providers Care Amusement Or Recreation Card Checker Name Role Phone Lynette Jorge DO Primary Care Provider [phone] Reason for Visit * Reason Onset Date Comments Scheduling 03/04/2023 HST Encounter Details Date Type Department Care Team Description 03/04/2023 Telephone Sleep Lab [facility] [address] [place] [address] [facility], Sleep Med Home Study [facility] [address] [place] [address] Scheduling (HST) Allergies Active Allergy Reactions Severity Noted Date Comments Bactrim Hives High 07/06/2013 Dust Cough High 07/06/2013 Sneezing, coughing, asthma Nickel Rash 03/19/2021 Other Allergy (See Comments) Itching,Wheezing Medium 07/06/2013 Grass- redness, itching, asthma Pollen Cough High 07/06/2013 Sneezing, cough, asthma Sulfa Antibiotics Hives High 07/06/2013 Trimethoprim Hives 05/24/2018 documented as of this encounter (statuses as of 03/04/2023) Medications Medication Sig Dispensed Refills Start Date End Date Status polyethylene glycol 3350 (MIRALAX) packet Take 1 Packet by mouth daily. 14 Each 0 10/12/2018 Active Additional Information Patient taking differently:17 g OralDAILY PRN, Informant: Patient, Reported on 09/22/2022 saline (OCEAN) 0.65 % nasal spray Administer 1 [place] into nostril 2 times a day. And as needed for nasal congestion. 30 mL 12 11/10/2018 Active Vit-Fe Bud-YG-Xlaed (ONE-A-DAY WOMENS ) 28-0.8 & 223 MG [...] MCG/INH Inhalation Aerosol Powder Breath Activated (umeclidinium [place]) Inhale by mouth 1 Puff in the [...] Emergency room. 2 Each 3 03/02/2023 Active Hospital, Clinic, or Other Facility Administered Medication Ordered Dose Route Frequency Start Date End Date Status Omalizumab (Xolair) inj 150 mgIndications:Severe persistent asthma without complication 150 mg SC [id number] 09/11/2022 Acti ve Albuterol Sulfate (Proventil) (2.5 MG/3ML) 0.083% inhalation solution 2.5 mgIndications:Severe persistent asthma with (acute) exacerbation 2.5 mg NEBULIZER ONCE PRN 02/02/2023 Acti ve Albuterol Sulfate (Proventil) (2.5 MG/3ML) 0.083% inhalation solution 2.5 mgIndications:Severe persistent asthma with acute exacerbation 2.5 mg NEBULIZER PRN 01/27/2023 01/27/2024 Active documented as of this encounter (statuses as of 03/04/2023) Active Problems Problem Noted Date PTSD (post-traumatic stress disorder) Heart murmur 04/27/2019 Advance directive declined by patient Overview: No, Advance Directive brochure offered, patient declined. Fibroid, uterine 02/17/2019 Vitamin D insufficiency 10/20/2018 Overview: October 2018 = 27 Suggest discussing with PCP, elizabeth as able, suggest taking up to 2000 IU Vit D3 daily during . Idiopathic intracranial hypertension Demyelinating disease 06/08/2017 Overview: 05/26 seeing neuro, abnormal MRI however MS workup neg Iron deficiency anemia 08/09/2016 Allergic rhinitis 08/08/2013 Asthma, severe persistent 07/22/2013 Overview: Admitted [place] [facility] for acute exacerbation on 10/08/18-10/11/18. Has been admitted monthly since last January. Takes deltasone 10mg daily GERD (gastroesophageal reflux disease) 1 09/22/2012 Overview: Nissin fundoplication x2. Not on meds for GERD at time of NOB Last Assessment & Plan: Continue GRAPHIC DESIGN SPECIALIST famotidine documented as of this encounter (statuses as of 03/04/2023) Resolved Problems Problem Noted Date Resolved Date Status asthmaticus 02/15/2019 06/07/2019 Nocturnal hypoxemia due to asthma 12/31/2018 06/07/2019 Current chronic use of systemic steroids 019 06/10/2022 High-risk 12/29/2018 07/12/2019 Obesity, Class I, BMI 30.0-34.9 (see actual BMI) 11/05/2018 09/21/2019 Asthma exacerbation 11/05/2018 01/13/2019 Severe persistent asthma with acute exacerbation 10/08/2018 04/15/2019 Last Assessment & Plan: Patient was recently discharged on similar symptoms. Doing better now after getting steroids and breathing treatments. Continuing on GRAPHIC DESIGN SPECIALIST inhalers and steroid 40mg daily. Pulmonary [...] needs to see arlin Peña section in [place] on 10/01/16. RSV (respiratory syncytial virus infection) 08/201601/07/2017 Moderate persistent asthma with acute exacerbati on 08/06/2016 01/07/2017 and not yet delivered in third trimeste r 08/06/2016 01/07/2017 Normocytic anemia 08/06/2016 01/07/2017 Electrolyte and fluid disorder 08/06/2016 0 01/13/2017 Normal 04/15/2016 08/06/2016 Overview: Problem Action [...] Dejesus RN 04/29/2019 History of section complicating pregnan cy 04/15/2016 07/12/2019 Overview: C/s x 2; Desires [...] above. 2nd c/s-repeat, breech. High risk teen 04/15/2016 016 High risk in young multigravida 201507/12/2019 Overview: Pt states first complicated by funneling of cervix, oligohydramnios. Delivered at 31 weeks after presenting to ED with severe asthma attack, baby found to be bradycardic. C/s done at that time. Release signed to obtain records confirming above. Last Assessment & Plan: MFM consulted as patient was due for US outpatient and now admitted. First trimester screening 10/26/20142015 , normal first 09/07/2014 04/15/20 16 Overview: MFM referral placed for FTS-negative Offer MSAFP after 15 weeks-negative Vocal cord dysfunction 08/08/2013 7 documented as of this encounter (statuses as of 03/04/2023) Immunizations Name Administration Dates Next Due H1N1 2009 Influenza, IM 07/30/2009 HPV Vaccine, 9-Valent 10/21/2022,09/23/2022 Hepatitis B Vaccine, Recombi nant, Adjuvanted, 20 mcg/mL (Heplisav-B) 09/23/2022 MMR - Measles/Mumps/Rubella Vaccine 05/14/2019 Pneumococcal Conjugate Vacc, 13 Valent (Prevnar) 08/05/2018 Pneumococcal Polysaccharide PPV23 (Pneumovax) 03/10/2018,04/25/2014,10/06/2013 Seasonal Influenza Virus Vac cine, Unspecified Formulation 04/18/2019,08/05/2018,04/10/2017,07/10,04/25/2014,04/14/2014,07/06/2013 Seasonal Influenza, Quadriva lent, No Preserve, 6 Mons & Above, IM 09/23/2022,05/09/2020,04/18/2019,08/05 Seasonal Influenza, Quadriva lent, No Preserve, [...] = 0.6 oz pur e alcohol) rare Food Insecurity Answer Date Recorded Within the past 12 months, y ou worried that your food would run out before you got money to buy more. Never true 03/31/2019 Within the past 12 months, t he food you bought just didn't last and you didn't have money to get more. Never true 03/31/2019 Sex Assigned at Date Recorded Not on file Job Start Date Occupation [...] encounter Miscellaneous Notes * Telephone Encounter - HUGO Branham - 03/04/2023 8:57 AM EDT Order in [facility] from Gibson Cabrera MD for HST. Ins auth ??? required. Roentgenologist approval is not required. Abihaemaggie will you please check the auth - I am not sure. Thank you. documented in this encounter Plan of Treatment Upcoming Encounters Date Type Specialty Care Team Description 03/23/2023 Nurse Only Ancillary Vigil, Nurse Fam [place] [address] [place] [address] 03/27/2023 Nurse Only Pulmonary Gw, Nurse Pulmonary [address] [place] [address] Health Maintenance Due Date Last Done Comments COVID-19 Vaccine (#1) 1991 Depression Screening, Annual for Pts 12 and Over 12/16/2019 12/15/2018 Hepatitis B (2 of 2 - CpG 2-dose series) 10/21/2022 09/23/2022 Influenza Vaccine (FLU shot) (#1) 2023 09/23/2022, 05/09/2020, 04/18/2019, Additional history exists Pap Smear 05/10/2026 05/10/2021, 06/0 08/2017, 01/08/2018, Additional history exists DTaP,Tdap,and Td Vaccines (4 - Td or Tdap) 05/05/2029 05/05/2019, 10/02/2016, 10/06/2013 Pneumococcal Vaccine: Pediatrics (0 to 5 Years) and At-Risk Patients (6 to 64 Years) (3 - PPSV23 or PCV20) 2056 08/05/2018, 03/10/2018, 04/25/2014, Additional history exists Hepatitis C Screening Completed 09/22/2022 , 09/22/2022, 09/22/2022, Additional history exists GARDASIL-HPV IMMUNIZATION SERIES Addressed 10/21/2022, 09/23/2022, 05/25/2014 (Done elsewhere), Additional history exists Overridden with the intention of not completing the topic MENINGOCOCCAL (MENACTRA/MENVEO) Aged Out No longer eligible based on patient's age to complete this topic documented as of this encounter Medical Devices Implanted Type Area Veterinary Science Teacher Device Identifier Shelf Expiration Date Model / Serial / Lot Suture Cinch Long - [id number] Implanted:Qty : 1 on 12/16/[address] MD at OR [facility] N/A: Esophagus [employer] 07/15/2024 [facility]-C01-21 3-L / / [id number] documented as of this encounter Advance Directives [...] the patient have Health Care Power of Landscape Architect? No Care Teams Amusement Or Recreation Card Checker Relationship Specialty Start Date End Date Lynette Jorge, DO [address] [place] [address] PCP - General Family Medicine 06/25/16 documented as of this encounter
--- OUTSIDE RECORDS SUMMARY | 2023-07-26 18:26 | External Medical Summary ---
Author Name Unknown Address Unknown Organization K01:[facility]ORY [facility] [address] [facility] [address] Laboratory Report Ordering Provider Test Date Status CHANTAL COLLIER 04/03/2023 10:40:09 Final Observation Date Value Abnormality Reference (Units ) Status Dust Mite IgE, pteronyssinus 04/03/2023 10:40:09 55.30 Abnormal <0.10 (kUa/L) Final Dust Mite IgE, farinae 04/03/2023 10:40:09 79.80 Abnormal <0.10 (kUa/L) Final Cat Epithelium IgE 04/03/2023 10:40:09 3.05 Abnormal <0.10 (kUa/L) Final Dog Dander IgE 04/03/2023 10:40:09 0.44 Abnormal <0.10 (kUa/L) Final Bermuda grass IgE 04/03/2023 10:40:09 0.21 <0.10 (kUa/L) Final Taz IgE 04/03/2023 10:40:09 1.66 Abnormal <0.10 (kUa/L) Final Penicillium notatum IgE 04/03/2023 10:40:09 <0.10 <0.10 (kUa/L) Final Cladosporium IgE 04/03/2023 10:40:09 <0.10 <0.10 (kUa/L) Final Aspergillus IgE 04/03/2023 10:40:09 <0.10 <0.10 (kUa/L) Final Alternaria IgE 04/03/2023 10:40:09 <0.10 <0.10 (kUa/L) Final Helminthosporium halodes IgE 04/03/2023 10:40:09 <0.10 <0.10 (kUa/L) Final Pullularia IgE 04/03/2023 10:40:09 <0.10 <0.10 (kUa/L) Final Acremonium sp IgE Ab [Units/volume] in Serum 04/03/2023 10:40:09 <0.10 <0.10 (kUa/L) Final Maple IgE Ab [Units/volume] in Serum 04/03/2023 10:40:09 <0.10 <0.10 (kUa/L) Final Silver Birch IgE Ab [Units/volume] in Serum 04/03/2023 10:40:09 <0.10 <0.10 (kUa/L) Final [place]ley IgE 04/03/2023 10:40:09 <0.10 <0.10 (kUa/L) Final Elm IgE 04/03/2023 10:40:09 <0.10 <0.10 (kUa/L) Final Antioch tree IgE 04/03/2023 10:40:09 <0.10 <0.10 (kUa/L) Final [place] IgE 04/03/2023 10:40:09 <0.10 <0.10 (kUa/L) Final White Anthony IgE 04/03/2023 10:40:09 <0.10 <0.10 (kUa/L) Final Pecan or [place] Tree IgE 04/03/2023 10:40:09 <0.10 <0.10 (kUa/L) Final Common ragweed [place] (nAmb a) 1 IgE Ab [Units/volume] in Serum 04/03/2023 10:40:09 0.33 <0.10 (kUa/L) Final Mugwort IgE 04/03/2023 10:40:09 <0.10 <0.10 (kUa/L) Final Plaintain (Portuguese) IgE 04/03/2023 10:40:09 <0.10 <0.10 (kUa/L) Final Cook's Quarters IgE 04/03/2023 10:40:09 <0.10 <0.10 (kUa/L) Final Cocklebur IgE Ab [Units/volume] in Serum 04/03/2023 10:40:09 <0.10 <0.10 (kUa/L) Final Pigweed common IgE 04/03/2023 10:40:09 <0.10 <0.10 (kUa/L) Final Sheep sorrel IgE 04/03/2023 10:40:09 <0.10 <0.10 (kUa/L) Final Performing Location [facility] [place] [address]
--- OUTSIDE RECORDS SUMMARY | 2023-07-26 18:26 | External Medical Summary | Summary of Care ---
Author Name Unknown Organization [facility] Address [address] [place] [address] Phone [phone] Care Team Providers Care Bilingual Teacher Aide Name Role Phone Lynette Jorge DO Primary Care Provider [phone] Reason for Visit * Reason Onset Date Comments Appointment 03/30/2023 Xolair injection Encounter Details Date Type Department Care Team Description 03/30/2023 Telephone Pulmonary Medicine [facility] Thomas [address] [place] [phone] Gibson Cabrera MD [address] [place] [id number] Appointment (Xolair injection ) Allergies Active Allergy Reactions Severity Noted Date Comments Bactrim Hives High 07/06/2013 Dust Cough High 07/06/2013 Sneezing, coughing, asthma Nickel Rash 03/19/2021 Other Allergy (See Comments) Itching,Wheezing Medium 07/06/2013 Grass- redness, itching, asthma Pollen Cough High 07/06/2013 Sneezing, cough, asthma Sulfa Antibiotics Hives High 07/06/2013 Trimethoprim Hives 05/24/2018 documented as of this encounter (statuses as of 04/02/2023) Medications Medication Sig Dispensed Refills Start Date End Date Status polyethylene glycol 3350 (MIRALAX) packet Take 1 Packet by mouth daily. 14 Each 0 10/12/2018 Active Additional Information Patient taking differently:17 g OralDAILY PRN, Informant: Patient, Reported on 09/22/2022 saline (OCEAN) 0.65 % nasal spray Administer 1 [place] into nostril 2 times a day. And as needed for nasal congestion. 30 mL 12 11/10/2018 Active Vit-Fe Lhk-OF-Krxgg (ONE-A-DAY WOMENS ) 28-0.8 & 223 MG [...] MCG/INH Inhalation Aerosol Powder Breath Activated (umeclidinium [place]) Inhale by mouth 1 Puff in the [...] persistent asthma without complication 150 mg SC [id number] 09/11/2022 Acti ve Albuterol Sulfate (Proventil) (2.5 MG/3ML) 0.083% inhalation solution 2.5 mgIndications:Severe persistent asthma with (acute) exacerbation 2.5 mg NEBULIZER ONCE PRN 02/02/2023 Acti ve Albuterol Sulfate (Proventil) (2.5 MG/3ML) 0.083% inhalation solution 2.5 mgIndications:Severe persistent asthma with acute exacerbation 2.5 mg NEBULIZER PRN 01/27/2023 01/27/2024 Active documented as of this encounter (statuses as of 04/02/2023) Active Problems Problem Noted Date PTSD (post-traumatic [...] Asthma, severe persistent 07/22/2013 Overview: Admitted to [facility] for acute exacerbation on 10/08/18-10/11/18. Has been admitted monthly since last January. Takes deltasone 10mg daily GERD (gastroesophageal reflux disease) 1 09/22/2012 Overview: Nissin fundoplication x2. Not on meds for GERD at time of NOB Last Assessment & Plan: Continue LEAN FACILITATOR famotidine documented as of this encounter (statuses as of 04/02/2023) Resolved Problems Problem Noted Date Resolved Date [...] getting steroids and breathing treatments. Continuing on LEAN FACILITATOR inhalers and steroid 40mg daily. Pulmonary medicine [...] in to arrhythmia Single liveborn, born in [facility], delivered by section 10/03/2016 01/07/2017 INFORMATION 09/09/2016 01/07/2017 Overview: Pt needs to see arlin Peña section in [place] on 10/01/16. RSV (respiratory syncytial virus infection) [...] as of this encounter (statuses as of 04/02/2023) Immunizations Name Administration Dates Next Due H1N1 2009 Influenza, IM 07/30/2009 HPV Vaccine, 9-Valent 10/21/2022,09/23/2022 Hepatitis B Vaccine, Recombi nant, Adjuvanted, 20 mcg/mL (Heplisav-B) 09/23/2022 MMR - Measles/Mumps/Rubella Vaccine 05/14/2019 Pneumococcal Conjugate Vacc, 13 Valent (Prevnar) 08/05/2018 Pneumococcal Polysaccharide PPV23 (Pneumovax) 03/10/2018,04/25/2014,10/06/2013 Seasonal Influenza Virus Vac cine, Unspecified Formulation 04/18/2019,08/05/2018,04/10/2017,07/10,04/25/2014,04/14/2014,07/06/2013 Seasonal Influenza, PF, 6 mo ns & Above, IM , (Flulaval) 09/23/2022,05/09/2020,04/18/2019,08/05 Seasonal Influenza, Quadriva lent, No Preserve, [...] Miscellaneous Notes * Telephone Encounter - HUGO Bush - 04/02/2023 9:43 AM EDT Patient is scheduled and are of the date and time * Telephone Encounter - HUGO Bush - 04/01/2023 9:08 AM EDT My g message sent to patient * Telephone Encounter - HUGO Bush - 03/31/2023 9:20 AM EDT Lmom 03/31 * Telephone Encounter - HUGO Bush - 03/30/2023 8:52 AM EDT LMOM to schedule Somdinah for her 4 wk return for her xolair injection. Due around 04/24 documented in this encounter Plan of Treatment Upcoming Encounters Date Type Specialty Care Team Description 04/03/2023 Nurse Only Ancillary Nurse Elliot Vigil [address] [id number] 04/20/2023 Nurse Only Pulmonary Gw, Nurse Pulmonary [address] [address] Health Maintenance Due Date Last Done Comments COVID-19 Vaccine (#1) 1991 Depression Screening, Annual for Pts 12 and Over 12/16/2019 12/15/2018 HPV/Co-Test 2021 Hepatitis B (2 of 2 - CpG [...] this encounter Medical Devices Implanted Type Area Flag Signaler Device Identifier Shelf Expiration Date Model / Serial / Lot Suture Cinch Long - [id number] Implanted:Qty : 1 on 12/16/[address] MD at OR [facility] N/A: Esophagus [employer] 07/15/2024 [facility]-C01-21 3-L / / [id number] documented as of this encounter Advance Directives [...] the patient have Health Care Power of Call Worker? No Care Teams Bilingual Teacher Aide Relationship Specialty Start Date End Date Lynette Jorge, DO [address] [place] [address] PCP - General Family Medicine 06/25/16 documented as of this encounter
--- OUTSIDE RECORDS SUMMARY | 2023-07-26 18:26 | External Medical Summary ---
Author Name Unknown Address Unknown Organization K0G:[facility] [address] [place] [address] Laboratory Report Ordering Provider Test Date Status CHANTAL COLLIER 04/03/2023 10:40:09 Final Observation Date Value Abnormality Reference (Units ) Status SYNC LEUKOCYTES IN BLOOD BY AUTOMATED COUNT 04/03/2023 10:40:09 7.08 4.00-10.80 (K/uL) Final Segs 04/03/2023 10:40:09 51.0 40.0-75.0 (%) Final Lymphs % 04/03/2023 10:40:09 39.0 18.0-42.0 (%) Final Monos 04/03/2023 10:40:09 7.2 1.0-11.0 (%) Final Eosinophils 04/03/2023 10:40:09 2.4 0.0-6.0 (%) Final Basos 04/03/2023 10:40:09 0.4 0.0-2.0 (%) Final Absolute Segs 04/03/2023 10:40:09 3.61 1.80-7.70 (K/uL) Final Lymphs, absolute 04/03/2023 10:40:09 2.76 1.00-4.80 (K/ul) Final Monos, Abs 04/03/2023 10:40:09 0.51 0.00-1.10 (K/uL) Final Eos, Abs 04/03/2023 10:40:09 0.17 0.00-0.70 (K/uL) Final Basos, Abs 04/03/2023 10:40:09 0.03 0.00-0.20 (K/uL) Final Performing Location [facility] [place] [address]
--- OUTSIDE RECORDS SUMMARY | 2023-07-26 18:26 | External Medical Summary | Summary of Care ---
Author Name Unknown Organization [facility] Address [address] [place] [address] Phone [phone] Care Team Providers Care Machine Shop Helper Name Role Phone Lynette Jorge DO Primary Care Provider [phone] Reason for Visit * Reason Comments Medication Administration Encounter Details Date Type Department Care Team Description 04/03/2023 Nurse Only Ancillary Nicki [facility] [address] [place] [address] [facility], Nurse [facility] [address] [place] [address] Medication Administration Allergies Active Allergy Reactions Severity Noted Date Comments Bactrim Hives High 07/06/2013 Dust Cough High 07/06/2013 Sneezing, coughing, asthma Nickel Rash 03/19/2021 Other Allergy (See Comments) Itching,Wheezing Medium 07/06/2013 Grass- redness, itching, asthma Pollen Cough High 07/06/2013 Sneezing, cough, asthma Sulfa Antibiotics Hives High 07/06/2013 Trimethoprim Hives 05/24/2018 documented as of this encounter (statuses as of 04/03/2023) Medications Medication Sig Dispensed Refills Start Date End Date Status polyethylene glycol 3350 (MIRALAX) packet Take 1 Packet by mouth daily. 14 Each 0 10/12/2018 Active Additional Information Patient taking differently:17 g OralDAILY PRN, Informant: Patient, Reported on 09/22/2022 saline (OCEAN) 0.65 % nasal spray Administer 1 [place] into nostril 2 times a day. And as needed for nasal congestion. 30 mL 12 11/10/2018 Active Vit-Fe Eme-BS-Essna (ONE-A-DAY WOMENS ) 28-0.8 & 223 MG [...] MCG/INH Inhalation Aerosol Powder Breath Activated (umeclidinium [place]) Inhale by mouth 1 Puff in the [...] persistent asthma without complication 150 mg SC [id number] 09/11/2022 Acti ve Albuterol Sulfate (Proventil) (2.5 MG/3ML) 0.083% inhalation solution 2.5 mgIndications:Severe persistent asthma with (acute) exacerbation 2.5 mg NEBULIZER ONCE PRN 02/02/2023 Acti ve Albuterol Sulfate (Proventil) (2.5 MG/3ML) 0.083% inhalation solution 2.5 mgIndications:Severe persistent asthma with acute exacerbation 2.5 mg NEBULIZER PRN 01/27/2023 01/27/2024 Active documented as of this encounter (statuses as of 04/03/2023) Active Problems Problem Noted Date PTSD (post-traumatic [...] Overview: Admitted to [facility] for acute exacerbation on 10/08/18-10/11/18. Has been admitted monthly since last January. Takes deltasone 10mg daily GERD (gastroesophageal reflux disease) 1 09/22/2012 Overview: Nissin fundoplication x2. Not on meds for GERD at time of NOB Last Assessment & Plan: Continue ANNOUNCER famotidine documented as of this encounter (statuses as of 04/03/2023) Resolved Problems Problem Noted Date Resolved Date [...] getting steroids and breathing treatments. Continuing on ANNOUNCER inhalers and steroid 40mg daily. Pulmonary medicine [...] INFORMATION 09/28/2018 12/21/2018 Overview: Taking prometrium at [facility] Obesity in , antepartum [...] needs to see arlin Peña section in [place] on 10/01/16. RSV (respiratory syncytial virus infection) [...] as of this encounter (statuses as of 04/03/2023) Immunizations Name Administration Dates Next Due H1N1 [...] Encounters Date Type Specialty Care Team Description 04/20/2023 Nurse Only Pulmonary Gw, Nurse Pulmonary [address] [place] [address] Health Maintenance Due Date Last Done Comments COVID-19 Vaccine (#1) 1991 Depression Screening, Annual for Pts 12 and Over 12/16/2019 12/15/2018 HPV/Co-Test 2021 Influenza Vaccine (FLU [...] this encounter Medical Devices Implanted Type Area Fiber Optics Supervisor Device Identifier Shelf Expiration Date Model / Serial / Lot Suture Cinch Long - [id number] Implanted:Qty : 1 on 12/16/[address] MD at OR [facility] N/A: Esophagus [employer] 07/15/2024 [facility]-C01-21 3-L / / [id number] documented as of this encounter Visit Diagnoses Diagnosis Need for HPV vaccination- Primary Need for prophylactic vaccination and inoculation against other viral diseases documented in this encounter Advance Directives Latest [...] the patient have Health Care Power of Standpipe Tender? No Care Teams Machine Shop Helper Relationship Specialty Start Date End Date Lynette Jorge, DO [address] [place] [address] PCP - General Family Medicine 06/25/16 documented as of this encounter
--- OUTSIDE RECORDS SUMMARY | 2023-07-26 18:26 | External Medical Summary | Summary of Care ---
Author Name Unknown Organization [facility] Address [address] [place] [address] Phone [phone] Care Team Providers Care Glazier Metal Furniture Name Role Phone Lynette Jorge DO Primary Care Provider [phone] Reason for Visit * Reason Onset Date Comments Other 04/02/2023 Re: Xolair injec tions Encounter Details Date Type Department Care Team Description 04/02/2023 Telephone Pulmonary Medicine Charlotte Thomas [address] [place] [address] Gibson Cabrera MD [address] [place] [address] Other (Re: Xolair injections) Allergies Active Allergy Reactions Severity Noted Date [...] (OCEAN) 0.65 % nasal spray Administer 1 [place] into nostril 2 times a day. And as needed for nasal congestion. 30 mL 12 11/10/2018 Active Vit-Fe Gjh-YC-Habiu (ONE-A-DAY WOMENS ) 28-0.8 & 223 MG [...] MCG/INH Inhalation Aerosol Powder Breath Activated (umeclidinium [place]) Inhale by mouth 1 Puff in the [...] persistent asthma without complication 150 mg SC [id number] 09/11/2022 Acti ve Albuterol Sulfate (Proventil) (2.5 [...] Asthma, severe persistent 07/22/2013 Overview: Admitted to [facility] for acute exacerbation on 10/08/18-10/11/18. Has been admitted monthly since last January. Takes deltasone 10mg daily GERD (gastroesophageal reflux disease) 1 09/22/2012 Overview: Nissin fundoplication x2. Not on meds for GERD at time of NOB Last Assessment & Plan: Continue ROAD CONSULTANT famotidine documented as of this encounter (statuses [...] getting steroids and breathing treatments. Continuing on ROAD CONSULTANT inhalers and steroid 40mg daily. Pulmonary medicine [...] needs to see arlin Peña section in [place] on 10/01/16. RSV (respiratory syncytial virus infection) [...] any current needs or questions 09/15/2016 Chelsey Dejesus, SANDRA 09/15/16 Problem Action Taken Date entered Entered [...] encounter Miscellaneous Notes * Telephone Encounter - Shabana Gordillo LPN - 04/02/2023 2:37 PM EDT I called the secure return phone number provided and left a detailed message for Catherine-that Somdinah's med is patient supplied, not clinic supplied. I provided our number for call back if she has questions. * Telephone Encounter - Eva Roberson CPhT - 04/02/2023 2:07 PM EDT Catherine calling from [facility] asking where the Omalizumab 150 MG Subcutaneous Solution Reconstituted (Xolair) is being dispensed from. Catherine is asking if it is office supplied or coming from a a specialty pharmacy. Call back number is [phone]. Please advise Thank you, Vani Roberson Coordinator [facility] [facility]) 04/02/2023,2:10 PM documented in this encounter Plan of Treatment Upcoming Encounters Date Type Specialty Care Team Description 04/03/2023 Nurse Only Ancillary [place], Nurse [facility] [place] [address] [address] 04/20/2023 Nurse Only Pulmonary Gw, Nurse Pulmonary [address] [place] [address] Health Maintenance Due Date Last Done Comments [...] this encounter Medical Devices Implanted Type Area Disability Insurance Claim Examiner Device Identifier Shelf Expiration Date Model / Serial / Lot Suture Cinch Long - [id number] Implanted:Qty : 1 on 12/16/[address] MD at OR [facility] N/A: Esophagus [employer] 07/15/2024 [facility]-C01-21 3-L / / [id number] documented as of this encounter Advance Directives [...] the patient have Health Care Power of Insulation And Flooring Assembler? No Care Teams Glazier Metal Furniture Relationship Specialty Start Date End Date Lynette Jorge, DO [address] [place] [address] PCP - General Family Medicine 06/25/16 documented as of this encounter
--- OUTSIDE RECORDS SUMMARY | 2023-07-26 18:26 | External Medical Summary | Summary of Care ---
Author Name Unknown Organization [facility] Address [address] [place] [address] Phone [phone] Care Team Providers Care Food Processing Plant Manager Name Role Phone Lynette Jorge DO Primary Care Provider [phone] Reason for Visit * Reason Comments Allergy Injection xolair Encounter Details Date Type Department Care Team Description 03/27/2023 Nurse Only Pulmonary Medicine, [facility] [address] [place] [address] Gw, Nurse Pulmonary [address] [place] [address] Allergy Injection (xolair) Allergies Active Allergy Reactions Severity Noted Date Comments Bactrim Hives High 07/06/2013 Dust Cough High 07/06/2013 Sneezing, coughing, asthma Nickel Rash 03/19/2021 Other Allergy (See Comments) Itching,Wheezing Medium 07/06/2013 Grass- redness, itching, asthma Pollen Cough High 07/06/2013 Sneezing, cough, asthma Sulfa Antibiotics Hives High 07/06/2013 Trimethoprim Hives 05/24/2018 documented as of this encounter (statuses as of 03/27/2023) Medications Medication Sig Dispensed Refills Start Date End Date Status polyethylene glycol 3350 (MIRALAX) packet Take 1 Packet by mouth daily. 14 Each 0 10/12/2018 Active Additional Information Patient taking differently:17 g OralDAILY PRN, Informant: Patient, Reported on 09/22/2022 saline (OCEAN) 0.65 % nasal spray Administer 1 [place] into nostril 2 times a day. And as needed for nasal congestion. 30 mL 12 11/10/2018 Active Vit-Fe Fec-LL-Fvhtu (ONE-A-DAY WOMENS ) 28-0.8 & 223 MG [...] MCG/INH Inhalation Aerosol Powder Breath Activated (umeclidinium [place]) Inhale by mouth 1 Puff in the [...] persistent asthma without complication 150 mg SC [id number] 09/11/2022 Acti ve Albuterol Sulfate (Proventil) (2.5 MG/3ML) 0.083% inhalation solution 2.5 mgIndications:Severe persistent asthma with (acute) exacerbation 2.5 mg NEBULIZER ONCE PRN 02/02/2023 Acti ve Albuterol Sulfate (Proventil) (2.5 MG/3ML) 0.083% inhalation solution 2.5 mgIndications:Severe persistent asthma with acute exacerbation 2.5 mg NEBULIZER PRN 01/27/2023 01/27/2024 Active documented as of this encounter (statuses as of 03/27/2023) Active Problems Problem Noted Date PTSD (post-traumatic [...] Asthma, severe persistent 07/22/2013 Overview: Admitted to [facility] for acute exacerbation on 10/08/18-10/11/18. Has been admitted monthly since last January. Takes deltasone 10mg daily GERD (gastroesophageal reflux disease) 1 09/22/2012 Overview: Nissin fundoplication x2. Not on meds for GERD at time of NOB Last Assessment & Plan: Continue OFFICE ADMINISTRATION famotidine documented as of this encounter (statuses as of 03/27/2023) Resolved Problems Problem Noted Date Resolved Date [...] getting steroids and breathing treatments. Continuing on OFFICE ADMINISTRATION inhalers and steroid 40mg daily. Pulmonary medicine [...] needs to see arlin Peña section in [place] on 10/01/16. RSV (respiratory syncytial virus infection) [...] as of this encounter (statuses as of 03/27/2023) Immunizations Name Administration Dates Next Due H1N1 [...] No 04/30/2019 documented as of this encounter Nursing Notes * Dora Gonsales LPN - 03/27/2023 9:25 AM EDT The pt is here for her xolair injections. Pre-Administration Time Out Procedure Performed: Yes Patient Identified (Ask Name/Date of ): Yes Does the patient have a fever greater than 101 degrees today? No Patient allergic to latex? No Has the patient ever fainted after receiving an injection? No VFC Stock: No Immunization(s) verified: Yes, Immunization Name: xolair, VIS Sheet(s) given: No Verified Side and Site: Yes Verified Shot(s) with Parent(s)/Patient: Yes After 20 mins the pt denied any s/s from today's injection and will return in 4 weeks for her next xolair injections. documented in this encounter Plan of Treatment Health Maintenance Due Date Last Done Comments [...] this encounter Medical Devices Implanted Type Area Landfill Gas Technician Device Identifier Shelf Expiration Date Model / Serial / Lot Suture Olivia Baer - [id number] Implanted:Qty : 1 on 12/16/[address] MD at OR [facility] N/A: Esophagus [employer] 07/15/2024 [facility]-C01-21 3-L / / [id number] documented as of this encounter Visit Diagnoses Diagnosis Severe persistent asthma without complication- Primary Elevated IgE level Other and unspecified nonspecific immunological findings documented in this encounter Administered Medications Active Administered Medications - up to 3 most recent administrations Medication Order MAR Action Action Date Dose Rate Site Omalizumab (Xolair) inj 150 mg 150 mg, Subcutaneous, [id number], First dose on Elyss[place] 09/11/22 at 1245, Until Discontinued, TOTAL DOSE = 300 mg Given 03/27/2023 9:30 AM EDT 150 mg Arm Right Upper Given 03/27/2023 9:28 AM EDT 150 mg Ar m Left Upper Given 02/20/2023 3:22 PM EDT 150 mg Ar m Left Upper documented in this encounter Advance Directives [...] the patient have Health Care Power of Rigger Third? No Care Teams Food Processing Plant Manager Relationship Specialty Start Date End Date Lynette Jorge, DO [address] [place] [address] PCP - General Family Medicine 06/25/16 documented as of this encounter
--- OUTSIDE RECORDS SUMMARY | 2023-07-26 18:26 | External Medical Summary | Summary of Care ---
Author Name Unknown Organization [facility] Address [address] [place] [address] Phone [phone] Care Team Providers Care Baggage Porter Head Name Role Phone Lynette Jorge DO Primary Care Provider [phone] Reason for Visit * Precert (Within 10 days (routine)) - Authorized Specialty Diagnoses / Procedures Referred By Contcale t Referred To Contact Pharmacy Diagnoses Severe persistent asthma with (acute) exacerbation Procedures Sai Little MD [address] [place] [address] Referral ID Status Reason Start Date Expiration Date V isits Requested Visits Authorized [id number] Authorized Precert 07/04/2022 07/04/2023 [id number] Encounter Details Date Type Department Care Team Description 04/20/2023 Nurse Only Pulmonary Medicine, [facility] [address] [place] [address] Gw, Nurse Pulmonary [address] [place] [address] Allergies Active Allergy Reactions Severity Noted Date Comments Bactrim Hives High 07/06/2013 Dust Cough High 07/06/2013 Sneezing, coughing, asthma Nickel Rash 03/19/2021 Other Allergy (See Comments) Itching,Wheezing Medium 07/06/2013 Grass- redness, itching, asthma Pollen Cough High 07/06/2013 Sneezing, cough, asthma Sulfa Antibiotics Hives High 07/06/2013 Trimethoprim Hives 05/24/2018 documented as of this encounter (statuses as of 04/20/2023) Medications Medication Sig Dispensed Refills Start Date End Date Status polyethylene glycol 3350 (MIRALAX) packet Take 1 Packet by mouth daily. 14 Each 0 10/12/2018 Active Additional Information Patient taking differently:17 g OralDAILY PRN, Informant: Patient, Reported on 09/22/2022 saline (OCEAN) 0.65 % nasal spray Administer 1 [place] into nostril 2 times a day. And as needed for nasal congestion. 30 mL 12 11/10/2018 Active Vit-Fe Mge-FW-Rjivl (ONE-A-DAY WOMENS ) 28-0.8 & 223 MG [...] MCG/INH Inhalation Aerosol Powder Breath Activated (umeclidinium [place]) Inhale by mouth 1 Puff in the [...] persistent asthma without complication 150 mg SC [id number] 09/11/2022 Acti ve Albuterol Sulfate (Proventil) (2.5 MG/3ML) 0.083% inhalation solution 2.5 mgIndications:Severe persistent asthma with (acute) exacerbation 2.5 mg NEBULIZER ONCE PRN 02/02/2023 Acti ve Albuterol Sulfate (Proventil) (2.5 MG/3ML) 0.083% inhalation solution 2.5 mgIndications:Severe persistent asthma with acute exacerbation 2.5 mg NEBULIZER PRN 01/27/2023 01/27/2024 Active documented as of this encounter (statuses as of 04/20/2023) Active Problems Problem Noted Date PTSD (post-traumatic [...] Asthma, severe persistent 07/22/2013 Overview: Admitted [place] [facility] [place] on 10/08/18-10/11/18. Has been admitted monthly since last January. Takes deltasone 10mg daily GERD (gastroesophageal reflux disease) 1 09/22/2012 Overview: Nissin fundoplication x2. Not on meds for GERD at time of NOB Last Assessment & Plan: Continue CITY SURVEYOR famotidine documented as of this encounter (statuses as of 04/20/2023) Resolved Problems Problem Noted Date Resolved Date [...] getting steroids and breathing treatments. Continuing on CITY SURVEYOR inhalers and steroid 40mg daily. Pulmonary medicine [...] 09/28/2018 07/12/2019 Overview: BMI: 31.92 kg/m at [facility] Pt desires nutrition consult as this is her highest weight, feels it to be associated with prednisone use Early 1hr gtt normal Hypokalemia 01/13/2017 01/13/2017 Overview: 15/16 y/o while in hospital with continuous neb, went in to arrhythmia Single liveborn, born in [facility], delivered by section 10/03/2016 01/07/2017 INFORMATION 09/09/2016 01/07/2017 Overview: Pt needs to see arlin Peña section in [place] on 10/01/16. RSV (respiratory syncytial virus infection) [...] any current needs or questions 09/08/2016 Chelsey Dejesus, SANDRA 09/08/16 Problem Action Taken Date entered Entered by Date resolved Current needs or questions Patient denies having any current needs or questions 09/15/2016 Chelsey Dejesus, RN 09/15/16 Problem Action Taken Date entered Entered by Date resolved ctx Aware of how and when to call office 09/18/2016 Hue Rueda RN 09/18/2016 Problem Action Taken Date entered Entered by Date resolved Car seat info discussed 09/22/2016 Hue Rueda, SANDRA 09/22/2016 Problem Action Taken Date entered Entered by Date resolved Current needs or questions Patient denies having any current needs or questions 09/29/2016 Hue Rueda, SANDRA 09/29/2016 Problem Action Taken Date entered Entered [...] as of this encounter (statuses as of 04/20/2023) Immunizations Name Administration Dates Next Due H1N1 [...] Taken Comments Blood Pressure - - Pulse 75 04/20/2023 8:58 AM EDT Temperature 35.8 C (96.4 F) 04/20/2023 8:58 AM ED T Respiratory Rate 16 04/20/2023 8:58 AM EDT Oxygen Saturation 99% 04/20/2023 8:58 AM EDT Inhaled Oxygen Concentration - - Weight - [...] Encounters Date Type Specialty Care Team Description 05/18/2023 Nurse Only Pulmonary Gw, Nurse Pulmonary [address] [place] [address] Health Maintenance Due Date Last Done Comments [...] this encounter Medical Devices Implanted Type Area School Bus Aide Device Identifier Shelf Expiration Date Model / Serial / Lot Suture Cinch Long - [id number] Implanted:Qty : 1 on 12/16/[address] MD at OR [facility] N/A: Esophagus [employer] 07/15/2024 [facility]-C01-21 3-L / / [id number] documented as of this encounter Administered Medications Active Administered Medications - up to 3 most recent administrations Medication Order MAR Action Action Date Dose Rate Site Omalizumab (Xolair) inj 150 mg 150 mg, Subcutaneous, [id number], First dose on Elyssa 09/11/22 at 1245, Until Discontinued, TOTAL DOSE = 300 mg Given 04/20/2023 9:04 AM EDT 150 mg Arm Right Upper Given 04/20/2023 9:03 AM EDT 150 mg Ar m Left Upper Given 03/27/2023 9:30 AM EDT 150 mg Ar m Right Upper documented in this encounter Advance [...] patient have Health Care Power of Sales Service Professional? No Care Teams Baggage Porter Head Relationship Specialty Start Date End Date Lynette Jorge, DO [address] [place] [address] PCP - General Family Medicine 06/25/16 documented as of this encounter
--- OUTSIDE RECORDS SUMMARY | 2023-07-26 18:26 | External Medical Summary | Summary of Care ---
Author Name Unknown Organization [facility] Address [address] [place] [address] Phone [phone] Care Team Providers Care Assistant Business Manager Name Role Phone Lynette Jorge DO Primary Care Provider [phone] Encounter Details Date Type Department Care Team (Late st Contact Info) Description 06/01/2023 1:40 PM EDT [facility] [address] [place] [address] Mann Nunez MD [address] [place] [address] Severe persistent asthma without complication* Allergies Active Allergy Reactions Criticality Noted Date Comments Bactrim Hives High 07/06/2013 Dust Cough High 07/06/2013 Sneezing, coughing, asthma Nickel Rash 03/19/2021 Other Allergy (See Comments) Itching,Wheezing Medium 07/06/2013 Grass- redness, itching, asthma Pollen Cough High 07/06/2013 Sneezing, cough, asthma Sulfa Antibiotics Hives High 07/06/2013 Trimethoprim Hives 05/24/2018 documented as of this encounter (statuses as of 06/01/2023) Medications Medication Sig Dispensed Refills Start Date End Date Status polyethylene glycol 3350 (MIRALAX) packet Take 1 Packet by mouth daily. 14 Each 0 10/12/2018 Active Additional Information Patient taking differently:17 g OralDAILY PRN, Informant: Patient, Reported on 09/22/2022 saline (OCEAN) 0.65 % nasal spray Administer 1 [place] into nostril 2 times a day. And as needed for nasal congestion. 30 mL 12 11/10/2018 Active Vit-Fe Ldg-PL-Joutk (ONE-A-DAY WOMENS ) 28-0.8 & 223 MG [...] MCG/INH Inhalation Aerosol Powder Breath Activated (umeclidinium [place]) Inhale by mouth 1 Puff in the [...] Emergency room. 2 Each 3 03/02/2023 Active Tezspire 210 MG/1.91ML Subcutaneous Solution Prefilled Syringe (Tezepelumab-ekko) Inject 1.91 mL under the skin every 4 weeks. 1.91 mL 12 06/01/2023 Active predniSONE 5 MG Oral Tablet (Deltasone) Take 1 Tablet by mouth in the morning. every morning with food, as instructed.. 35 Tablet 5 06/01/2023 Active Hospital, Clinic, or Other Facility Administered Medication Ordered Dose Route Frequency Start Date End Date Status Omalizumab (Xolair) inj 150 mgIndications:Severe persistent asthma without complication 150 mg SC [id number] 09/11/2022 Acti ve Albuterol Sulfate (Proventil) (2.5 MG/3ML) 0.083% inhalation solution 2.5 mgIndications:Severe persistent asthma with (acute) exacerbation 2.5 mg NEBULIZER ONCE PRN 02/02/2023 Acti ve Albuterol Sulfate (Proventil) (2.5 MG/3ML) 0.083% inhalation solution 2.5 mgIndications:Severe persistent asthma with acute exacerbation 2.5 mg NEBULIZER PRN 01/27/2023 01/27/2024 Active documented as of this encounter (statuses as of 06/01/2023) Active Problems Problem Noted Date Diagnosed Date [...] Asthma, severe persistent 07/22/2013 Overview: [place] [facility] [place] on 10/08/18-10/11/18. Has been admitted monthly since last January. Takes deltasone 10mg daily GERD (gastroesophageal reflux disease) 3 Overview: Nissin fundoplication x2. Not on meds for GERD at time of NOB Last Assessment & Plan: Continue MOVING WORKER famotidine documented as of this encounter (statuses as of 06/01/2023) Resolved Problems Problem Noted Date Diagnosed Date [...] getting steroids and breathing treatments. Continuing on MOVING WORKER inhalers and steroid 40mg daily. Pulmonary [...] needs to see arlin Peña section in [place] on 10/01/16. RSV (respiratory syncytial virus infection) [...] as of this encounter (statuses as of 06/01/2023) Immunizations Name Administration Dates Next Due H1N1 [...] = 0.6 oz pur e alcohol) rare Sex and Gender Information Value Date Recorded [...] as of this encounter Progress Notes * Mann Nunez MD - 06/01/2023 2:08 PM EDT Patient location: HOME. I was not in a hospital or clinic location. After connecting through [employer], patient was verified with two unique identifiers. Patient (or authorized legal hospital insurance representative) was then informed that this was a Telemedicine visit and being conducted confidentially over secure lines. Methods to assure confidentiality were taken. Patient acknowledged consent and understanding of privacy and security of the Telemedicine visit. The patient agreed to participate. This is a 33 year old female with severe asthma presenting for evaluation of this. [facility] She is on 5 mg steroids. She denies any URI. She is wheezing. She is SOB. She is slowly improving. She has no leg swelling. She has no heartburn. Current Outpatient Medications Medication Sig Dispense Refill Tezspire 210 MG/1.91ML Subcutaneous Solution Prefilled Syringe (Tezepelumab- ekInformed Trades) Inject 1.91 mL under the skin every 4 weeks. 1.91 mL 12 predniSONE 5 MG Oral Tablet (Deltasone) Take 1 Tablet by mouth in the morning. every morning with food, as instructed.. 35 Tablet 5 polyethylene glycol 3350 (MIRALAX) packet Take 1 Packet by mouth daily. (Patient taking differently: Take 1 Packet by mouth daily as needed.) 14 Each 0 saline (OCEAN) 0.65 % nasal spray Administer 1 Central into nostril 2 times a day. And as needed for nasal congestion. 30 mL 12 Vit-Fe Rui-ML-Kmagv (ONE-A-DAY WOMENS ) 28-0.8 & 223 MG MISC Take 1 Tab by mouth daily. Iron-Vitamin C 65-125 MG Oral Tablet Take 1 Tablet by mouth in the morning. famotidine (PEPCID) 20 MG Tablet Take 1 tablet by mouth twice daily 60 Tab 5 Montelukast Sodium 10 MG Oral Tablet (Singulair) Take 1 Tab by mouth daily. 30 Tab 11 Topiramate 50 MG Oral Tablet (topAMAX) Take 1 Tablet by mouth in the morning and 1 Tablet before bedtime. Fluticasone Propionate 50 MCG/ACT Nasal Suspension (Flonase) Administer 2 Sprays into each nostril daily. 18.2 mL 11 oxygen IN GAS Use as directed. 2 lpm as needed Loratadine 10 MG Oral Tablet (Claritin) 1 Tablet. Omeprazole 20 MG Oral Capsule Delayed Release (PriLOSEC) Take by mouth 1 Capsule in the morning. 90Capsule 3 Incruse Ellipta 62.5 MCG/INH Inhalation Aerosol Powder Breath Activated (umeclidinium [place]) Inhale by mouth 1 Puff in the [...] or Shortness of Breath. 528 mL 2 Fluticasone Propionate HFA 220 MCG/ACT Inhalation Aerosol (Flovent HFA) Inhale 2 Puffs by mouth every night at bedtime. with chamber. Rinse mouth after use. 12 g 6 Norethindrone 0.35 MG Oral Tablet Take 1 Tablet by mouth in the morning. 28 Tablet 3 Budesonide-Formoterol Fumarate 160-4.5 MCG/ACT Inhalation Aerosol (Symbicort) [...] to the Emergency room. 2 Each 3 Current Facility-Administered Medications Medication Dose Route Frequency Provider Last Rate Last Admin Omalizumab (Xolair) inj 150 mg 150 mg Subcutaneous Q2 Weeks ESTUARDO Song 150 mg at 05/25/23 1044 Albuterol Sulfate (Proventil) (2.5 MG/3ML) 0.083% inhalation [...] redness, itching, asthma Nickel Rash Trimethoprim Hives In general, pleasant female in no distress RR-10 Awake and alert No conversational dyspnea No audible wheezing Nl affect Impression- Asthma exacerbation. Plan 1. Continue with Prednisone 5 mg until seen again in 2-3 weeks. 2. Inhalers as prescribed. 3. Change to Tezspire. 4. I have answered the patient's questions. Mann Nunez MD documented in this encounter Plan of Treatment Upcoming Encounters Date Type Department Care Team (Late st Contact Info) Description 06/03/2023 10:40 AM EDT Office Visit Family Practice [facility] [address] [place] [address] [place] CRNP [address] [place] [address] 06/26/2023 10:00 AM EST Nurse Only Pulmonary Medicine, [facility] [address] [place] [address] Gw, Nurse Pulmonary [address] [place] [address] Health Maintenance Due Date Last Done Comments [...] this encounter Medical Devices Implanted Type Area Steward/Stewardess Economy Class Device Identifier Shelf Expiration Date Model / Serial / Lot Suture Cinch Long - [id number] Implanted:Qty : 1 on 12/16/[address] MD at OR [facility] N/A: Esophagus [employer] 07/15/2024 [facility]-C01-21 3-L / / [id number] documented as of this encounter Visit Diagnoses Diagnosis Severe persistent asthma without complication- Primary documented in this encounter Advance Directives [...] the patient have Health Care Power of Scrape Gatherer? No Care Teams Assistant Business Manager Relationship Specialty Start Date End Date Lynette Jorge DO [address] [address] PCP - General Family Medicine 06/25/16 documented as of this encounter
--- OUTSIDE RECORDS SUMMARY | 2023-07-26 18:26 | External Medical Summary | Summary of Care ---
Author Name Unknown Organization [facility] Address [address] [place] [address] Phone [phone] Care Team Providers Care Bowling Ball Grader And Marker Name Role Phone Ania Lynettejenny Allen DO Primary Care Provider [phone] Reason for Visit * Reason Comments Medication Administration * Precert (Within 10 days (routine)) - Authorized Specialty Diagnoses / Procedures Referred By Dena t Referred To Contact Pharmacy Diagnoses Severe persistent asthma with (acute) exacerbation Procedures Sai Little MD [address] [place] [address] Referral ID Status Reason Start Date Expiration Date V isits Requested Visits Authorized [id number] Authorized Precert 07/04/2022 07/04/[phone] Encounter Details Date Type Department Care Team Description 05/25/2023 Nurse Only Pulmonary Medicine, [facility] [address] [place] [address] Gw, Nurse Pulmonary [address] [place] [address] Medication Administration Allergies Active Allergy Reactions Severity Noted Date Comments Bactrim Hives High 07/06/2013 Dust Cough High 07/06/2013 Sneezing, coughing, asthma Nickel Rash 03/19/2021 Other Allergy (See Comments) Itching,Wheezing Medium 07/06/2013 Grass- redness, itching, asthma Pollen Cough High 07/06/2013 Sneezing, cough, asthma Sulfa Antibiotics Hives High 07/06/2013 Trimethoprim Hives 05/24/2018 documented as of this encounter (statuses as of 05/25/2023) Medications Medication Sig Dispensed Refills Start Date End Date Status polyethylene glycol 3350 (MIRALAX) packet Take 1 Packet by mouth daily. 14 Each 0 10/12/2018 Active Additional Information Patient taking differently:17 g OralDAILY PRN, Informant: Patient, Reported on 09/22/2022 saline (OCEAN) 0.65 % nasal spray Administer 1 [place] into nostril 2 times a day. And as needed for nasal congestion. 30 mL 12 11/10/2018 Active Vit-Fe Xtp-LN-Bhbyq (ONE-A-DAY WOMENS ) 28-0.8 & 223 MG [...] MCG/INH Inhalation Aerosol Powder Breath Activated (umeclidinium [place]) Inhale by mouth 1 Puff in the [...] persistent asthma without complication 150 mg SC [id number] 09/11/2022 Acti ve Albuterol Sulfate (Proventil) (2.5 MG/3ML) 0.083% inhalation solution 2.5 mgIndications:Severe persistent asthma with (acute) exacerbation 2.5 mg NEBULIZER ONCE PRN 02/02/2023 Acti ve Albuterol Sulfate (Proventil) (2.5 MG/3ML) 0.083% inhalation solution 2.5 mgIndications:Severe persistent asthma with acute exacerbation 2.5 mg NEBULIZER PRN 01/27/2023 01/27/2024 Active documented as of this encounter (statuses as of 05/25/2023) Active Problems Problem Noted Date PTSD (post-traumatic [...] severe persistent 07/22/2013 Overview: Admitted to [facility] [place]ation on 10/08/18-10/11/18. Has been admitted monthly since last January. Takes deltasone 10mg daily GERD (gastroesophageal reflux disease) 1 09/22/2012 Overview: Nissin fundoplication x2. Not on meds for GERD at time of NOB Last Assessment & Plan: Continue DAIRY MANUFACTURING TECHNOLOGIST famotidine documented as of this encounter (statuses as of 05/25/2023) Resolved Problems Problem Noted Date Resolved Date [...] getting steroids and breathing treatments. Continuing on DAIRY MANUFACTURING TECHNOLOGIST inhalers and steroid 40mg daily. Pulmonary [...] INFORMATION 09/28/2018 12/21/2018 Overview: Taking prometrium at [facility] Obesity in , antepartum 09/28/2018 [...] needs to see arlin Peña section in [place] on 10/01/16. RSV (respiratory syncytial virus infection) [...] as of this encounter (statuses as of 05/25/2023) Immunizations Name Administration Dates Next Due H1N1 [...] Sign Reading Time Taken Comments Blood Pressure 120/60 05/25/2023 10:45 AM EDT Pulse 77 05/25/2023 10:45 AM EDT Temperature 36.6 C (97.8 F) 05/25/2023 10:45 AM E DT Respiratory Rate - - Oxygen Saturation 98% 05/25/2023 10:45 AM EDT Inhaled Oxygen Concentration - - [...] Encounters Date Type Specialty Care Team Description 06/26/2023 Nurse Only Pulmonary Gw, Nurse Pulmonary [address] [address] Health Maintenance Due Date Last Done Comments [...] this encounter Medical Devices Implanted Type Area Package Clerk Device Identifier Shelf Expiration Date Model / Serial / Lot Suture Cinch Long - [id number] Implanted:Qty : 1 on 12/16/[address] MD at OR [facility] N/A: Esophagus [employer] 07/15/2024 [facility]-C01-21 3-L / / [id number] documented as of this encounter Administered Medications Active Administered Medications - up to 3 most recent administrations Medication Order MAR Action Action Date Dose Rate Site Omalizumab (Xolair) inj 150 mg 150 mg, Subcutaneous, [id number], First dose on Elyssa 09/11/22 at 1245, Until Discontinued, TOTAL DOSE = 300 mg Given 05/25/2023 10:44 AM EDT 150 mg Arm Right Upper Given 05/25/2023 10:43 AM EDT 150 mg A rm Left Upper Given 04/20/2023 9:04 AM EDT 150 mg Ar m Right [...] the patient have Health Care Power of Mussel Farmer? No Care Teams Bowling Ball Grader And Marker Relationship Specialty Start Date End Date Lynette Jorge, DO [address] [place] [address] PCP - General Family Medicine 06/25/16 documented as of this encounter
--- OUTSIDE RECORDS SUMMARY | 2023-07-26 18:26 | External Medical Summary | Summary of Care ---
Author Name Unknown Organization [facility] Address [address] [place] [address] Phone [phone] Care Team Providers Care Research Microbiologist Name Role Phone Lynette Jorge DO Primary Care Provider [phone] Reason for Visit * Reason Onset Date Comments Advice 03/02/2023 INSURANCE Encounter Details Date Type Department Care Team Description 03/02/2023 Telephone Pulmonary Medicine Charlotte Thomas [address] [place] [id number] Gibson Cabrera MD [address] [place] [address] Advice (INSURANCE) Allergies Active Allergy Reactions Severity Noted Date Comments Bactrim Hives High 07/06/2013 Dust Cough High 07/06/2013 Sneezing, coughing, asthma Nickel Rash 03/19/2021 Other Allergy (See Comments) Itching,Wheezing Medium 07/06/2013 Grass- redness, itching, asthma Pollen Cough High 07/06/2013 Sneezing, cough, asthma Sulfa Antibiotics Hives High 07/06/2013 Trimethoprim Hives 05/24/2018 documented as of this encounter (statuses as of 03/03/2023) Medications Medication Sig Dispensed Refills Start Date End Date Status polyethylene glycol 3350 (MIRALAX) packet Take 1 Packet by mouth daily. 14 Each 0 10/12/2018 Active Additional Information Patient taking differently:17 g OralDAILY PRN, Informant: Patient, Reported on 09/22/2022 saline (OCEAN) 0.65 % nasal spray Administer 1 [place] into nostril 2 times a day. And as needed for nasal congestion. 30 mL 12 11/10/2018 Active Vit-Fe Nos-NF-Jmrug (ONE-A-DAY WOMENS ) 28-0.8 & 223 MG [...] MCG/INH Inhalation Aerosol Powder Breath Activated (umeclidinium [place]) Inhale by mouth 1 Puff in the [...] persistent asthma without complication 150 mg SC [id number] 09/11/2022 Acti ve Albuterol Sulfate (Proventil) (2.5 MG/3ML) 0.083% inhalation solution 2.5 mgIndications:Severe persistent asthma with (acute) exacerbation 2.5 mg NEBULIZER ONCE PRN 02/02/2023 Acti ve Albuterol Sulfate (Proventil) (2.5 MG/3ML) 0.083% inhalation solution 2.5 mgIndications:Severe persistent asthma with acute exacerbation 2.5 mg NEBULIZER PRN 01/27/2023 01/27/2024 Active documented as of this encounter (statuses as of 03/03/2023) Active Problems Problem Noted Date PTSD (post-traumatic [...] of NOB Last Assessment & Plan: Continue REAL ESTATE ATTORNEY famotidine documented as of this encounter (statuses as of 03/03/2023) Resolved Problems Problem Noted Date Resolved Date [...] getting steroids and breathing treatments. Continuing on REAL ESTATE ATTORNEY inhalers and steroid 40mg daily. Pulmonary medicine [...] in to arrhythmia Single liveborn, born in [facility], delivered by section 10/03/2016 01/07/2017 INFORMATION 09/09/2016 01/07/2017 Overview: Pt needs to see arlin Peña section in [place] on 10/01/16. RSV (respiratory syncytial virus infection) [...] as of this encounter (statuses as of 03/03/2023) Immunizations Name Administration Dates Next Due H1N1 [...] Telephone Encounter - Pema Lin LPN - 03/03/2023 8:55 AM EDT Our office left a message stating the pt gets her Xolair from [facility] * Telephone Encounter - Santiago Lane - 03/02/2023 4:03 PM EDT Ivette from [facility] was calling to see about where December Xolair was order from either [facility] or another one. Please advise and call back at her direct line [phone].Reference number is [id number]. Okay to leave information on Voicemail. documented in this encounter Plan of Treatment Upcoming Encounters Date Type Specialty Care Team Description 03/23/2023 Nurse Only Ancillary [place], Nurse Fam [place] [address] [place] [id number] 03/27/2023 Nurse Only Pulmonary Gw, Nurse Pulmonary [address] [place] [id number] Health Maintenance Due Date Last Done Comments [...] this encounter Medical Devices Implanted Type Area Progressive Die Maker Device Identifier Shelf Expiration Date Model / Serial / Lot Suture Olivia Baer - [id number] Implanted:Qty : 1 on 12/16/[address] MD at OR [facility] N/A: Esophagus [employer] 07/15/2024 [facility]-C01-21 3-L / / [id number] documented as of this encounter Advance Directives [...] the patient have Health Care Power of Bearing Press Machine Operator? No Care Teams Research Microbiologist Relationship Specialty Start Date End Date Lynette Jorge, [address] [place] [address] PCP - General Family Medicine 06/25/16 documented as of this encounter
--- OUTSIDE RECORDS SUMMARY | 2023-07-26 18:26 | External Medical Summary | Summary of Care ---
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 And as needed for nasal congestion. 30 mL 12 11/10/2018 Active Vit-Fe Rcv-QM-Ccrwd (ONE-A-DAY WOMENS ) 28-0.8 & 223 MG [...] MCG/INH Inhalation Aerosol Powder Breath Activated (umeclidinium [place]) Inhale by mouth 1 Puff in [...] persistent asthma without complication 150 mg SC [id number] 09/11/2022 Acti ve Albuterol Sulfate (Proventil) (2.5 [...] Asthma, severe persistent 07/22/2013 Overview: Admitted to [facility] for acute exacerbation on 10/08/18-10/11/18. Has been admitted monthly since last January. Takes deltasone 10mg daily GERD (gastroesophageal reflux disease) 1 09/22/2012 Overview: Nissin fundoplication x2. Not on meds for GERD at time of NOB Last Assessment & Plan: Continue ROOM SERVICE MANAGER famotidine documented as of this encounter [...] getting steroids and breathing treatments. Continuing on ROOM SERVICE MANAGER inhalers and steroid 40mg daily. Pulmonary [...] needs to see arlin Peña section in [place] on 10/01/16. 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 04/03/2023 10:40 AM EDT DIFFERENTIAL, AUTOMATED Lab Routine 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 04/03/2023 10:40 AM EDT Health Maintenance Due Date Last [...] this encounter Medical Devices Implanted Type Area Blower Installer Device Identifier Shelf Expiration Date Model / Serial / Lot Suture Olivia Baer - [id number] Implanted:Qty : 1 on 12/16/[address] MD at OR [facility] N/A: Esophagus [employer] 07/15/2024 [facility]-C01-21 3-L / / [id number] documented as of this encounter Visit Diagnoses Diagnosis 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 No Care Teams Special Equipment Technician Relationship Specialty Start Date End Date Lynette Jorge, DO [address] [place] [address] PCP - General Family Medicine 06/25/16 documented as of this encounter
--- OUTSIDE RECORDS SUMMARY | 2023-07-26 18:26 | External Medical Summary ---
Author Name Unknown Address Unknown Organization K01:[facility] [address] [place] [address] Laboratory Report Ordering Provider Test Date Status CHANTAL COLLIER 04/03/2023 10:40:09 Final Observation Date Value Abnormality Reference (Units ) Status IgE 04/03/2023 10:40:09 394.0 Above high normal <= 214.0 (kU/L) Final Performing Location [facility] - [address] [place] [address]
--- OUTSIDE RECORDS SUMMARY | 2023-07-26 18:26 | External Medical Summary | Summary of Care ---
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*; Severe persistent asthma without complication; Sleep-related breathing disorder Allergies Active Allergy Reactions Severity Noted Date Comments Bactrim Hives High 07/06/2013 Dust Cough High 07/06/2013 Sneezing, coughing, asthma Nickel Rash 03/19/2021 Other Allergy (See Comments) Itching,Wheezing Medium 07/06/2013 Grass- redness, itching, asthma Pollen Cough High 07/06/2013 Sneezing, cough, asthma Sulfa Antibiotics Hives High 07/06/2013 Trimethoprim Hives 05/24/2018 documented as of this encounter (statuses as of 03/02/2023) Medications Medication Sig Dispensed Refills Start Date End Date Status polyethylene glycol 3350 (MIRALAX) packet Take 1 Packet by mouth daily. 14 Each 0 10/12/2018 Active Additional Information Patient taking differently:17 g OralDAILY PRN, Informant: Patient, Reported on 09/22/2022 saline (OCEAN) 0.65 % nasal spray Administer 1 [place]ott into nostril 2 times a day. And as needed for nasal congestion. 30 mL 12 11/10/2018 Active Vit-Fe Buq-HM-Rrsdm (ONE-A-DAY WOMENS ) 28-0.8 & 223 MG [...] 05/09/2020 Active Topiramate 50 MG Oral Tablet (topAMAX)Indicatio [...] MCG/INH Inhalation Aerosol Powder Breath Activated (umeclidinium [place]) Inhale by mouth 1 Puff in the [...] 6 09/11/2022 Active Norethindrone 0.35 MG Oral TabletIndications: Encounter for initial prescription of contraceptive pills,Routine screening for STI (sexually transmitted infection) Take 1 Tablet by mouth in the morning. 28 Tablet 3 09/22/2022 Active Budesonide-Formote rol Fumarate 160-4.5 MCG/ACT Inhalation [...] Emergency room. 2 Each 3 03/02/2023 Active EPINEPHrine, anaphylaxis, (EPI-PEN) 0.3 MG/0.3ML SOAJ injection For a severe reaction: Inject in outer thigh following instructions on package and go to the Emergency room. 2 Each 3 04/24/2020 3 Discontinu ed(Refill) Albuterol Sulfate HFA 108 (90 Base) MCG/ACT Inhalation Aerosol SolutionIndication s:Severe persistent asthma without complication INHALE 2 PUFFS EVERY 4 HOURS NEEDED for cough, wheeze, or SOB 18 g 2 11/21/2021 3 Discontinu ed(Refill) Hospital, Clinic, or Other Facility Administered Medication Ordered Dose Route Frequency Start Date End Date Status Omalizumab (Xolair) inj 150 mgIndications:Severe persistent asthma without complication 150 mg SC [id number] 09/11/2022 Acti ve Albuterol Sulfate (Proventil) (2.5 MG/3ML) 0.083% inhalation solution 2.5 mgIndications:Severe persistent asthma with (acute) exacerbation 2.5 mg NEBULIZER ONCE PRN 02/02/2023 Acti ve Albuterol Sulfate (Proventil) (2.5 MG/3ML) 0.083% inhalation solution 2.5 mgIndications:Severe persistent asthma with acute exacerbation 2.5 mg NEBULIZER PRN 01/27/2023 01/27/2024 Active documented as of this encounter (statuses as of 03/02/2023) Active Problems Problem Noted Date PTSD (post-traumatic [...] of NOB Last Assessment & Plan: Continue SHIM PLUG CUTTER famotidine documented as of this encounter (statuses as of 03/02/2023) Resolved Problems Problem Noted Date Resolved Date [...] getting steroids and breathing treatments. Continuing on SHIM PLUG CUTTER inhalers and steroid 40mg daily. Pulmonary medicine [...] needs to see arlin Peña section in [place] on 10/01/16. RSV (respiratory syncytial virus infection) [...] entered Entered by Date resolved Traveling this Copy of records given 07/30/2016 Sophia Mendez, SANDRA 07/30/16 Problem Action Taken Date entered Entered by Date resolved classes Pt attended 08/25/2016 Heu Rudea RN 08/25/2016 Problem Action Taken Date entered [...] as of this encounter (statuses as of 03/02/2023) Immunizations Name Administration Dates Next Due H1N1 [...] Sign Reading Time Taken Comments Blood Pressure 122/60 03/02/2023 1:33 PM EDT Pulse 75 03/02/2023 1:33 PM EDT Temperature 36 C (96.8 F) 03/02/2023 1:33 PM EDT Respiratory Rate 16 03/02/2023 1:33 PM EDT Oxygen Saturation 98% 03/02/2023 1:33 PM EDT Inhaled Oxygen Concentration - - Weight 82.6 kg (182 lb) 03/02/2023 1:33 PM EDT Height 165.1 cm (5' 5") 03/02/2023 1:33 PM EDT Body Mass Index 30.29 03/02/2023 1:33 PM EDT documented in this encounter Functional Status [...] as of this encounter Progress Notes * Gibson Cabrera MD - 03/02/2023 1:51 PM EDT 03/02/2023 Pulmonary Medicine, [address] [place] [id number] [phone] Marianne Valenzuela 1990 female 32 year old Attending Physician Documentation: 32-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 Compliant with Xolair therapy, describes episodic flash attacks of shortness of breath, wheezing, dry cough, using rescue inhaler and nebulized bronchodilator therapy. Describes recent URI symptoms, significant contact with sick toddlers at home. Denies recent hospitalizations or urgent care visits. Patient reports history of fragmented sleep with loud nocturnal snoring, witnessed apneas, witnessed gasps during sleep, episodes of dry mouth and headache on waking up, along with evidence of occlusive daytime tiredness and sleepiness with tendency to doze off if inactive. Home sleep study will be requested. Pulmonary History to date: - history of 2 intubations, last being 10 years ago. - during attacks, around 90-91% SpO2. 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 Using spacer with albuterol. Relevant Lab work: - [place] [facility] 2019: + cat dander, grasses, and dust mites (significant) - 2018 IgE elevated at 149 - 2021: absolute eosiniophils 330, IgE 153 Pulmonary Function Test Results: March 2020 showed moderate obstructive ventilatory pattern, positive bronchodilator response noted Chest X-ray: 2019 showed normal cardiopulmonary parenchymal status. CT PE , report from [facility], Performed 12/2020: Mild respiratory motion artifact limits evaluation of peripheral branches of the pulmonary artery. Adequate opacification within main pulmonary artery. Nopulmonary embolus is seen. No evidence of right heart strain. Mild hiatal hernia. Tracheobronchial tree is patent. Mild mosaic pattern of lung parenchymal attenuation likely related to expiratory phase. No large infiltrates are consolidative lesions are seen. No pleural effusion demonstrated. Physical examination significant for class 1 throat, grade 2 tonsils, clear lung sagastume, regular cardiac rhythm, soft, nontender abdomen, no lower extremity edema nonlateralizing Neuro examination. Allergies screening profile standby orders for recurrent respiratory symptom flare up (especially 3weeks out from Xolair therapy). Role of alternative biologic therapy management options will be considered based on results. Current bronchodilator regimen will be continued. Patient is cleared for flight school instructions and lessons with peak flow monitoring recommended prior to flying episodes. Pulmonary clinic follow-up in 4 months. Patient was advised to contact the office with any change in symptoms status. Avoidance of sick contacts was reinforced. Assessment 1. Severe, persistent asthma, no recent exacerbation. ACT 8. a. Continue symbicort and incruse daily. b. Continue prn albuterol c. Continue xolair injections monthly d. Allergies screening profile was requested due to frequent respiratory symptom flare ups especially 3 weeks out of Xolair. e. 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 Peak flow monitor screening recommended prior to flying episodes. 2. Allergic rhinitis a. Continue singulair and claritin 3. House dust mite allergy a. Lifestyle modifications that can reduce dust mite exposure include: getting a dust mite mattresscover for your bed, wash bed sheets once a week in hot water, get rid of carpets / curtains / things that collect dust in your bedroom and home; do not allow pets in the bedroom. 4. Elevated IgE 5. GERD a. Continue PPI and pecid as prescribed 6. Sleep-related breathing disorder Patient reports history of fragmented sleep with loud nocturnal snoring, witnessed apneas, witnessed gasps during sleep, episodes of dry mouth and headache on waking up, along with evidence of occlusive daytime tiredness and sleepiness with tendency to doze off if inactive. Home sleep study will be ordered Follow Up: Return in about 4 months (around 07/03/2023) for Clinic Visit, Video to Clinic, Video toHome. | For: Clinic Visit, Video to Clinic, Video to Home | Check-out note: Severe Persistent Asthma - Well controlled Chronic Allergic Rhinitis GERD Sleep related breathing disorder Plan: C/w Xolair and Current BD Rx Albuterol Rescue inhaler and Epi Pen refilled Cleared for Flight Lessons (with Peak Flow Monitoring recommended pre flight.) F/u 4 months Gibson Cabrera MD Subjective CC: Chief Complaint Patient presents with Follow Up Asthma PFT Results HPI: Nursing Notes: Pema Lin LPN 03/02/23 1401 Signed Chief Complaint Patient presents with Follow Up Asthma PFT Results Interm History/Respiratory Symptoms Cough: rare-dry Hemoptysis: no Sinus Symptoms: PND Hospitalizations: no ED Trips: no Triggers: pollen,chemicals,stress, dry heat Nocturnal: laying down-cough CPAP/BiPAP/O2: O2 @ 2 lpm PRN MMRC Dyspnea Scale = 2 (On level ground, I walk slower than people of the same age because of breathlessness or have to stop for breath when walking at my own) Travel Screening Question 03/02/2023 1:28 PM EDT - Filed by Patient Do you have any of the following new or worsening symptoms? None of these Have you recently been in contact with someone who was sick? No / Unsure Myc Visit Accident Related Question Question 03/02/2023 1:28 PM EDT - Filed by Patient Is this visit related to an accident? (i.e work, motor vehicle) No Asthma Control Test Question 03/02/2023 1:36 PM EDT - Filed by Pema Lin LPN Please select the best response to the five questions below, by clicking the appropriate option button. In the past 4 weeks, how much of the time did your asthma keep you from getting as much done at work, school or at home? (3) Some of the time During the past 4 weeks, how often have you had shortness of breath? (1) More than once a day During the past 4 weeks, how often did your asthma symptoms (wheezing, coughing, shortness of breath, chest tightness or pain) wake you up at night or earlier than usual in the morning? (1) 4 or morenights a week During the past 4 weeks, how often have you used your rescue inhaler or nebulizer medication (such as albuterol)? (2) 1 or 2 times per day How would you rate your asthma control during the past 4 weeks? (1) Not controlled at all Total ACT Adult Score (range: 5 - 25) 8 (Poorly Controlled) Total ACT Child Score (range: 0 - 27) Incomplete Objective Filed Vitals: 03/02/23 1333 BP: 122/60 Pulse: 75 Resp: 16 Temp: 36 C (96.8 F) TempSrc: Tympanic SpO2: 98% Weight: 82.6 kg (182 lb) Height: 1.651 m (5' 5") Exam: Const: No signs of acute distress present. Head/Face: Normal on inspection. Eyes: Conjunctivae clear. Pupils equal round and reactive to light. ENMT: Oropharynx: No erythema, exudate or masses. Posterior pharynx is normal. Neck: Supple and symmetric. Resp: Respiratory examination as outlined above CV: Rate is regular. Rhythm is regular. No heart murmur appreciated. Extremities: No edema of the lower limbs bilaterally. Abdomen: Positive bowel sounds. Palpation of the abdomen reveals softness, but no distension or tenderness. No palpable hepatosplenomegaly. Musculo: Walks with a normal gait. Skin: Skin is warm and dry. Neuro: Coordination normal. No involuntary movement. Psych: Patient's attitude is cooperative. Mood is normal. Affect is normal. Tests reviewed with the patient: No imaging results in the last 6 months Available Radiologic data was reviewed by me in PACS. The images were shown to the patient and findings were discussed with the patient. HOME MEDICATIONS: Albuterol Sulfate HFA 108 (90 Base) MCG/ACT Inhalation Aerosol Solution EpiPen 2-Renan 0.3 MG/0.3ML Injection Solution Auto-injector Budesonide-Formoterol Fumarate 160-4.5 MCG/ACT Inhalation Aerosol (Symbicort) Norethindrone 0.35 MG Oral Tablet Albuterol Sulfate (2.5 MG/3ML) 0.083% Inhalation Nebulization Solution (Proventil) Fluticasone Propionate HFA 220 MCG/ACT Inhalation Aerosol (Flovent HFA) guaiFENesin ER 600 MG Oral Tablet Extended Release 12 Hour Omalizumab 150 MG Subcutaneous Solution Reconstituted (Xolair) Incruse Ellipta 62.5 MCG/INH Inhalation Aerosol Powder Breath Activated (umeclidinium [place]) Omeprazole 20 MG Oral Capsule Delayed Release (PriLOSEC) Loratadine 10 MG Oral Tablet (Claritin) oxygen IN GAS Fluticasone Propionate 50 MCG/ACT Nasal Suspension (Flonase) Topiramate 50 MG Oral Tablet (topAMAX) Montelukast Sodium 10 MG Oral Tablet (Singulair) famotidine (PEPCID) 20 MG Tablet Iron-Vitamin C 65-125 MG Oral Tablet Vit-Fe Nxx-KR-Vezat (ONE-A-DAY WOMENS ) 28-0.8 & 223 MG MISC saline (OCEAN) 0.65 % nasal spray polyethylene glycol 3350 (MIRALAX) packet Albuterol Sulfate (Proventil) (2.5 MG/3ML) 0.083% inhalation solution 2.5 mg Albuterol Sulfate (Proventil) (2.5 MG/3ML) 0.083% inhalation solution 2.5 mg Omalizumab (Xolair) inj 150 mg ROS: No reported history of Hemoptysis, Hematemesis, Melena No reported history of Dysuria, Hematuria, Flank Pain No reported history of chronic headache, seizures No reported history of Fall or trauma . No reported history of recent change in weight or appetite. Past Medical History: Diagnosis Date Allergic rhinitis 08/08/2013 Asthma 1990 Symptoms at ; diagnosed at 3mths. 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 Central air conditioning. Family History Problem Relation Age of Onset Lupus Mother Asthma Father in childhood Other (PCOS) Sister Lymphoma Brother HIV; Lymphatic cancer Liver disease Brother No Past Hx Grandmother (Maternal) Hypertension Grandfather (Maternal) Asthma Grandmother (Paternal) childhood No Past Hx Grandfather (Paternal) Autism Son No Past Hx Son Other (spina bifida) Aunt (Unspecified) maternal aunt Asthma Uncle (Unspecified) 3 paternal Review of patient's allergies indicates: Allergen Reactions Bactrim Hives Dust Cough Sneezing, coughing, asthma Pollen Cough Sneezing, cough, asthma Sulfa Antibiotics Hives Other Allergy (See Comments) Itching and Wheezing Grass- redness, itching, asthma Nickel Rash Trimethoprim Hives documented in this encounter Nursing Notes * Pema Lin LPN - 03/02/2023 1:36 PM EDT Chief Complaint Patient presents with Follow Up Asthma PFT Results Interm History/Respiratory Symptoms Cough: rare-dry Hemoptysis: no Sinus Symptoms: PND Hospitalizations: no ED Trips: no Triggers: pollen,chemicals,stress, dry heat Nocturnal: laying down-cough CPAP/BiPAP/O2: O2 @ 2 lpm PRN MMRC Dyspnea Scale = 2 (On level ground, I walk slower than people of the same age because of breathlessness or have to stop for breath when walking at my own) Travel Screening Question 03/02/2023 1:28 PM EDT - Filed by Patient Do you have any of the following new or worsening symptoms? None of these Have you recently been in contact with someone who was sick? No / Unsure Myc Visit Accident Related Question Question 03/02/2023 1:28 PM EDT - Filed by Patient Is this visit related to an accident? (i.e work, motor vehicle) No Asthma Control Test Question 03/02/2023 1:36 PM EDT - Filed by Pema Lin LPN Please select the best response to the five questions below, by clicking the appropriate option button. In the past 4 weeks, how much of the time did your asthma keep you from getting as much done at work, school or at home? (3) Some of the time During the past 4 weeks, how often have you had shortness of breath? (1) More than once a day During the past 4 weeks, how often did your asthma symptoms (wheezing, coughing, shortness of breath, chest tightness or pain) wake you up at night or earlier than usual in the morning? (1) 4 or morenights a week During the past 4 weeks, how often have you used your rescue inhaler or nebulizer medication (such as albuterol)? (2) 1 or 2 times per day How would you rate your asthma control during the past 4 weeks? 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 Expected: 03/02/2023 (Approximate), Expires: 03/02/2024 CBC WITH WBC DIFFERENTIAL Lab Routine 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 Expected: 03/02/2023 (Approximate), Expires: 03/02/2024 IGE Lab Routine 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 Expected: 03/02/2023 (Approximate), Expires: 03/02/2024 SLEEP TEST W/ TYPE 3 PORTABLE MONITOR, 4 CHANNEL; AT HOME Procedures Routine Severe persistent asthma without complication Sleep-related breathing disorder Ordered: 03/02/2023 Health Maintenance Due Date Last Done Comments [...] this encounter Medical Devices Implanted Type Area Bulk Loader Device Identifier Shelf Expiration Date Model / Serial / Lot Suture Cinch Long - [id number] Implanted:Qty : 1 on 12/16/[address] MD at OR [facility] N/A: Esophagus [employer] 07/15/2024 [facility]-C01-21 3-L / / [id number] documented as of this encounter Visit Diagnoses Diagnosis 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 No Care Teams Math Teacher Relationship Specialty Start Date End Date Lynette Jorge, [address] [place] [address] PCP - General Family Medicine 06/25/16 documented as of this encounter
--- OUTSIDE RECORDS SUMMARY | 2023-07-26 18:26 | External Medical Summary ---
Author Name Unknown Address Unknown Organization [id number]:[facility] [place] [address] [place] [id number] Laboratory Report Ordering Provider Test Date Status CHANTAL COLLIER 04/03/2023 10:40:09 Final Observation Date Value Abnormality Reference (Units ) Status WBC, Total 04/03/2023 10:40:09 7.08 4.00-10.8 0 (K/uL) Final RBC 04/03/2023 10:40:09 5.02 3.85-5.15 (M/uL) Final Hemoglobin 04/03/2023 10:40:09 13.7 12.0-15.3 (g/dL) Final HCT 04/03/2023 10:40:09 41.2 36.0-45.2 (%) Final MCV 04/03/2023 10:40:09 82.1 81.5-97.5 (fL) Final MCH 04/03/2023 10:40:09 27.3 27.0-34.0 (pg) Final MCHC 04/03/2023 10:40:09 33.3 32.0-36.0 (g/dL) Final RDW 04/03/2023 10:40:09 15.7 11.5-15.5 (%) Final Platelets 04/03/2023 10:40:09 314 140-400 (K /uL) Final MPV 04/03/2023 10:40:09 10.3 6.6-11.1 ( fL) Final Performing Location [facility] [place] [address] [place] [id number]
--- OUTSIDE RECORDS SUMMARY | 2023-07-26 18:27 | External Medical Summary | Summary of Care ---
Author Name Unknown Organization [facility] Address [address] [place] [address] Phone [phone] Care Team Providers Care Ammunition Components Inspector Name Role Phone Ania Lynette Alejandro GUPTA Primary Care Provider [phone] Reason for Visit * Reason Onset Date Comments Precert Not Needed 12/10/2022 SYMBICORT Encounter Details Date Type Department Care Team Description 12/10/2022 Telephone Pulmonary Medicine, [facility] [address] [place] [address] Mari Rodriguez CRNP Precert Not Needed (SYMBICORT ) Allergies Active Allergy Reactions Severity Noted Date Comments Bactrim Hives High 07/06/2013 Dust Cough High 07/06/2013 Sneezing, coughing, asthma Nickel Rash 03/19/2021 Other Allergy (See Comments) Itching,Wheezing Medium 07/06/2013 Grass- redness, itching, asthma Pollen Cough High 07/06/2013 Sneezing, cough, asthma Sulfa Antibiotics Hives High 07/06/2013 Trimethoprim Hives 05/24/2018 documented as of this encounter (statuses as of 02/09/2023) Medications Medication Sig Dispensed Refills Start Date End Date Status polyethylene glycol 3350 (MIRALAX) packet Take 1 Packet by mouth daily. 14 Each 0 10/12/2018 Active Additional Information Patient taking differently:17 g OralDAILY PRN, Informant: Patient, Reported on 09/22/2022 saline (OCEAN) 0.65 % nasal spray Administer 1 [place] into nostril 2 times a day. And as needed for nasal congestion. 30 mL 12 11/10/2018 Active Vit-Fe Isy-QB-Kqqda (ONE-A-DAY WOMENS ) 28-0.8 & 223 MG MISC Take 1 Tab by mouth daily. 0 Active Iron-Vitamin C 65-125 MG Oral Tablet Take 1 Tablet by mouth in the morning. 0 Active famotidine (PEPCID) 20 MG TabletIndications:G astroesophageal reflux disease without esophagitis Take 1 tablet by mouth twice daily 60 Tab 5 12/21/2019 Active Additional Information Patient not taking.Reported on 09/23/2022 EPINEPHrine, anaphylaxis, (EPI-PEN) 0.3 MG/0.3ML SOAJ injection For a severe reaction: Inject in outer thigh following instructions on package and go to the Emergency room. 2 Each 3 04/24/2020 Active Montelukast Sodium 10 MG Oral Tablet [...] the morning. 90 Capsule 3 10/07/2021 Active Albuterol Sulfate HFA 108 (90 Base) MCG/ACT Inhalation Aerosol SolutionIndications :Severe persistent asthma without complication INHALE 2 PUFFS EVERY 4 HOURS NEEDED for cough, wheeze, or SOB 18 g 2 11/21/2021 Active Incruse Ellipta 62.5 MCG/INH Inhalation Aerosol Powder Breath Activated (umeclidinium [place]) Inhale by mouth 1 Puff in the [...] before bedtime. 30.6 g 2 12/09/2022 Active Hospital, Clinic, or Other Facility Administered Medication Ordered Dose Route Frequency Start Date End Date Status Omalizumab (Xolair) inj 150 mgIndications:Severe persistent asthma without complication 150 mg SC [id number] 09/11/2022 02/26/2023 Active Omalizumab (Xolair) inj 150 mgIndications:Severe persistent asthma without complication 150 mg SC [id number] 09/11/2022 Active documented as of this encounter (statuses as of 02/09/2023) Active Problems Problem Noted Date PTSD (post-traumatic [...] persistent 07/22/2013 Overview: Admitted to [facility] for acute exacerbation on 10/08/18-10/11/18. Has been admitted monthly since last January. Takes deltasone 10mg daily GERD (gastroesophageal reflux disease) 1 09/22/2012 Overview: Nissin fundoplication x2. Not on meds for GERD at time of NOB Last Assessment & Plan: Continue STACKER OPERATOR famotidine documented as of this encounter (statuses as of 02/09/2023) Resolved Problems Problem Noted Date Resolved Date [...] getting steroids and breathing treatments. Continuing on STACKER OPERATOR inhalers and steroid 40mg daily. Pulmonary [...] INFORMATION 09/28/2018 12/21/2018 Overview: Taking prometrium at [facility] Obesity in , antepartum 09/28/2018 [...] Overview: Pt needs to see arlin Peña c section in [place] on 10/01/16. RSV (respiratory syncytial virus infection) 08/201601/07/2017 Moderate persistent asthma with acute exacerbati on 08/06/2016 01/07/2017 and [facility] 08/06/2016 01/07/2017 Normocytic anemia 08/06/2016 01/07/2017 [...] as of this encounter (statuses as of 02/09/2023) Immunizations Name Administration Dates Next Due H1N1 [...] encounter Miscellaneous Notes * Telephone Encounter - Carmen Ray LPN - 12/10/2022 11:07 AM EDT Pre-Auth Budesonide-Formoterol Fumarate 160-4.5MCG/ACT documented in this encounter Plan of Treatment Upcoming Encounters Date Type Specialty Care Team Description 02/20/2023 Nurse Only Pulmonary Gw, Nurse Pulmonary [address] [place] [phone] 03/23/2023 Nurse Only Ancillary Vigil, Nurse Fam [place] [address] [place] [phone] Health Maintenance Due Date Last Done Comments [...] (6 to 64 Years) (3 - PPSV23 if available, else PCV20) 2056 08/05/2018, 03/10/2018, 04/25/2014, Additional history [...] this encounter Medical Devices Implanted Type Area Bicycle Designer Device Identifier Shelf Expiration Date Model / Serial / Lot Suture Olivia Baer - [id number] Implanted:Qty : 1 on 12/16/[address] MD at OR [facility] N/A: Esophagus [employer] 07/15/2024 [facility]-C01-21 3-L / / [id number] documented as of this encounter Advance Directives [...] the patient have Health Care Power of Sedimentationist? No Care Teams Ammunition Components Inspector Relationship Specialty Start Date End Date Lynette Jorge, DO [address] [place] [phone] PCP - General Family Medicine 06/25/16 documented as of this encounter
--- OUTSIDE RECORDS SUMMARY | 2023-07-26 18:27 | External Medical Summary | Summary of Care ---
Author Name Unknown Organization [facility] Address [address] [place] [address] Phone [phone] Care Team Providers Care Ed Special Education Teacher Name Role Phone Lynette Jorge DO Primary Care Provider [phone] Encounter Details Date Type Department Care Team Description 02/02/2023 Orders Only Outcomes Research Department [address] [place] [address] Catherine Nova CHRA MyCode Research Other*[id number] Allergies Active Allergy Reactions Severity Noted Date Comments Bactrim Hives High 07/06/2013 Dust Cough High 07/06/2013 Sneezing, coughing, asthma Nickel Rash 03/19/2021 Other Allergy (See Comments) Itching,Wheezing Medium 07/06/2013 Grass- redness, itching, asthma Pollen Cough High 07/06/2013 Sneezing, cough, asthma Sulfa Antibiotics Hives High 07/06/2013 Trimethoprim Hives 05/24/2018 documented as of this encounter (statuses as of 02/02/2023) Medications Medication Sig Dispensed Refills Start Date End Date Status polyethylene glycol 3350 (MIRALAX) packet Take 1 Packet by mouth daily. 14 Each 0 10/12/2018 Active Additional Information Patient taking differently:17 g OralDAILY PRN, Informant: Patient, Reported on 09/22/2022 saline (OCEAN) 0.65 % nasal spray Administer 1 [place] into nostril 2 times a day. And as needed for nasal congestion. 30 mL 12 11/10/2018 Active Vit-Fe Xvw-UW-Wxwes (ONE-A-DAY WOMENS ) 28-0.8 & 223 MG [...] Inhalation Aerosol Powder Breath Activated (umeclidinium [place]) Inhale by mouth 1 Puff in the [...] persistent asthma without complication 150 mg SC [id number] 09/11/2022 02/26/2023 Acti ve Omalizumab (Xolair) inj 150 mgIndications:Severe persistent asthma without complication 150 mg SC [id number] 09/11/2022 Acti ve Albuterol Sulfate (Proventil) (2.5 MG/3ML) 0.083% inhalation solution 2.5 mgIndications:Severe persistent asthma with acute exacerbation 2.5 mg NEBULIZER PRN 01/27/2023 01/27/2024 Active documented as of this encounter (statuses as of 02/02/2023) Active Problems Problem Noted Date PTSD (post-traumatic stress disorder) Heart murmur 04/27/2019 Advance directive declined by patient Overview: No, Advance Directive brochure offered, patient declined. Fibroid, uterine 02/17/2019 Vitamin D insufficiency 10/20/2018 Overview: October 2018 = Suggest discussing with PCP, elizabeth as able, [...] of NOB Last Assessment & Plan: Continue EMPLOYMENT CONSULTANT famotidine documented as of this encounter (statuses as of 02/02/2023) Resolved Problems Problem Noted Date Resolved Date [...] getting steroids and breathing treatments. Continuing on EMPLOYMENT CONSULTANT inhalers and steroid 40mg daily. Pulmonary [...] INFORMATION 09/28/2018 12/21/2018 Overview: Taking prometrium at [facility] Obesity in , antepartum 09/28/2018 07/12/2019 Overview: BMI: 31.92 kg/m at [facility] Pt desires nutrition consult as this is her highest weight, feels it to be associated with prednisone use Early 1hr gtt normal Hypokalemia 01/13/2017 01/13/2017 Overview: [age] y/o while in hospital with continuous neb, went in to arrhythmia Single liveborn, born in [facility], delivered by section 10/03/2016 01/07/2017 INFORMATION 09/09/2016 01/07/2017 Overview: Pt needs to see arlin Peña section in [place] on 10/01/16. RSV (respiratory syncytial virus infection) [...] as of this encounter (statuses as of 02/02/2023) Immunizations Name Administration Dates Next Due H1N1 [...] Encounters Date Type Specialty Care Team Description 02/06/2023 Office Visit Family Medicine Alyse Langford CRNP [address] [place] [phone] 02/20/2023 Nurse Only Pulmonary Gw, Nurse Pulmonary [address] [facility] [place] [address] 03/23/2023 Nurse Only Ancillary Vigil, Nurse Fam [place] [address] [facility] [place] [phone] Scheduled Orders Name Type Priority Associated Diagnoses Orde r Schedule MYCODE SUBSEQUENT ADULT Lab Routine MyCode Research Other*[id number] Every 6 Months for 2 Occurrences starting 02/02/2023 until 02/22/2024 Health Maintenance Due Date Last Done Comments COVID-19 Vaccine (#1) 1991 Depression Screening, Annual for Pts 12 and Over 12/16/2019 12/15/2018 Hepatitis B (2 of 2 - CpG 2-dose series) 10/21/2022 09/23/2022 Pap Smear 05/10/2026 05/10/2021, 06/0 08/2017, 01/08/2018, Additional history exists DTaP,Tdap,and Td Vaccines (4 - Td or Tdap) 05/05/2029 05/05/2019, 10/02/2016, 10/06/2013 Pneumococcal Vaccine: Pediatrics (0 to 5 Years) and At-Risk Patients (6 to 64 Years) (3 - PPSV23 if available, else PCV20) 2056 08/05/2018, 03/10/2018, 04/25/2014, Additional history exists Hepatitis C Screening Completed 09/22/2022 , 09/22/2022, 09/22/2022, Additional history exists Influenza Vaccine (FLU shot) Completed 09/23/2022, 05/09/2020, 04/18/2019, Additional history exists GARDASIL-HPV IMMUNIZATION SERIES Addressed 10/21/2022, 09/23/2022, 05/25/2014 (Done elsewhere), Additional history exists Overridden with the intention of not completing the topic MENINGOCOCCAL (MENACTRA/MENVEO) Aged Out No longer eligible based on patient's age to complete this topic documented as of this encounter Medical Devices Implanted Type Area Fuel Cell Test Engineer Device Identifier Shelf Expiration Date Model / Serial / Lot Suture Olivia Baer - [id number] Implanted:Qty : 1 on 12/16/[address] MD at OR [facility] N/A: Esophagus [employer] 07/15/2024 [facility]-C01-21 3-L / / [id number] documented as of this encounter Visit Diagnoses Diagnosis MyCode Research Other*[id number] documented in this encounter Advance Directives Latest [...] the patient have Health Care Power of Welder Apprentice Combination? No Care Teams Ed Special Education Teacher Relationship Specialty Start Date End Date Lynette Jorge, [address] [place] [phone] PCP - General Family Medicine 06/25/16 documented as of this encounter
--- OUTSIDE RECORDS SUMMARY | 2023-07-26 18:27 | External Medical Summary | Summary of Care ---
Author Name Unknown Organization [facility] Address [address] [place] [address] Phone [phone] Care Team Providers Care Chief Console Operator Name Role Phone Lynette Jorge DO Primary Care Provider [phone] Encounter Details Date Type Department Care Team Description 01/27/2023 Orders Only Pulmonary Function Lab, [place] [address] [place] [address] Mann Nunez MD [address] [place], [place] [id number] Severe persistent asthma with (acute) exacerbation* Allergies Active Allergy Reactions Severity Noted Date [...] (OCEAN) 0.65 % nasal spray Administer 1 [place] into nostril 2 times a day. And as needed for nasal congestion. 30 mL 12 11/10/2018 Active Vit-Fe Xcl-XB-Xqork (ONE-A-DAY WOMENS ) 28-0.8 & 223 MG [...] MCG/INH Inhalation Aerosol Powder Breath Activated (umeclidinium [place]) Inhale by mouth 1 Puff in the [...] persistent asthma without complication 150 mg SC [id number] 09/11/2022 02/26/2023 Acti ve Omalizumab (Xolair) inj 150 mgIndications:Severe persistent asthma without complication 150 mg SC [id number] 09/11/2022 Acti ve Albuterol Sulfate (Proventil) (2.5 MG/3ML) 0.083% inhalation solution 2.5 mgIndications:Severe persistent asthma with (acute) exacerbation 2.5 mg NEBULIZER ONCE PRN 02/02/2023 Acti ve documented as of this encounter (statuses as [...] severe persistent 07/22/2013 Overview: Admitted to [facility] for acute exacerbation on 10/08/18-10/11/18. Has been admitted monthly since last January. Takes deltasone 10mg daily GERD (gastroesophageal reflux disease) 1 09/22/2012 Overview: Nissin fundoplication x2. Not on meds for GERD at time of NOB Last Assessment & Plan: Continue MANAGER FLORAL famotidine documented as of this encounter (statuses [...] steroids and breathing treatments. Continuing on MANAGER FLORAL inhalers and steroid 40mg daily. Pulmonary medicine [...] INFORMATION 09/28/2018 12/21/2018 Overview: Taking prometrium at [facility] Obesity in , antepartum 09/28/2018 07/12/2019 Overview: BMI: 31.92 kg/m at NOB Pt desires nutrition consult as this is her highest weight, feels it to be associated with prednisone use Early 1hr gtt normal Hypokalemia 01/13/2017 01/13/2017 Overview: [age] y/o while in hospital with continuous neb, went in to arrhythmia Single liveborn, born in [facility], delivered by section 10/03/2016 01/07/2017 INFORMATION 09/09/2016 01/07/2017 Overview: Pt needs to see arlin Peña section in [place] on 10/01/16. RSV (respiratory syncytial virus infection) 08/201601/07/2017 Moderate persistent asthma with acute exacerbati on 08/06/2016 01/07/2017 and [facility] 08/06/2016 01/07/2017 Normocytic anemia 08/06/2016 [...] & Above, IM 09/23/2022,05/09/2020,04/18/2019,08/05 Seasonal Influenza, Quadriva kaliet, No Preserve, IM 07/10/2016 Seasonal Influenza, Split, [...] Family Medicine Alyse Langford CRNP [address] [place] [phone] 02/20/2023 Nurse Only Pulmonary Gw, Nurse Pulmonary [address] [place] [phone] 03/23/2023 Nurse Only Ancillary Vigil, [facility] [place] [place] [facility] [place] [phone] Health Maintenance Due Date Last Done Comments [...] this encounter Medical Devices Implanted Type Area Cellophane Press Operator Device Identifier Shelf Expiration Date Model / Serial / Lot Suture Cinch Long - [id number] Implanted:Qty : 1 on 12/16/[address] MD at OR [facility] N/A: Esophagus [employer] 07/15/2024 [facility]-C01-21 3-L / / [id number] documented as of this encounter Visit Diagnoses Diagnosis Severe persistent asthma with (acute) exacerbation- Primary documented in this encounter Advance Directives [...] the patient have Health Care Power of Supervisor Aluminum Boat Assembly? No Care Teams Chief Console Operator Relationship Specialty Start Date End Date Lynette Jorge, DO [address] [place] [phone] PCP - General Family Medicine 06/25/16 documented as of this encounter
--- OUTSIDE RECORDS SUMMARY | 2023-07-26 18:27 | External Medical Summary | Summary of Care ---
Author Name Unknown Organization [facility] Address [address] [place] [address] Phone [phone] Care Team Providers Care National Opelint Analyst Name Role Phone Lynette Jorge DO Primary Care Provider [phone] Encounter Details Date Type Department Care Team Description 02/20/2023 Nurse Only Pulmonary Medicine, [facility] [address] [place] [address] Gw, Nurse Pulmonary [address] [place] [address] Arrived Allergies Active Allergy Reactions Severity Noted Date Comments Bactrim Hives High 07/06/2013 Dust Cough High 07/06/2013 Sneezing, coughing, asthma Nickel Rash 03/19/2021 Other Allergy (See Comments) Itching,Wheezing Medium 07/06/2013 Grass- redness, itching, asthma Pollen Cough High 07/06/2013 Sneezing, cough, asthma Sulfa Antibiotics Hives High 07/06/2013 Trimethoprim Hives 05/24/2018 documented as of this encounter (statuses as of 02/20/2023) Medications Medication Sig Dispensed Refills Start Date End Date Status polyethylene glycol 3350 (MIRALAX) packet Take 1 Packet by mouth daily. 14 Each 0 10/12/2018 Active Additional Information Patient taking differently:17 g OralDAILY PRN, Informant: Patient, Reported on 09/22/2022 saline (OCEAN) 0.65 % nasal spray Administer 1 [place] into nostril 2 times a day. And as needed for nasal congestion. 30 mL 12 11/10/2018 Active Vit-Fe Xbx-GU-Cqxrx (ONE-A-DAY WOMENS ) 28-0.8 & 223 MG [...] MCG/INH Inhalation Aerosol Powder Breath Activated (umeclidinium [place]) Inhale by mouth 1 Puff in the [...] persistent asthma without complication 150 mg SC [id number] 09/11/2022 02/26/2023 Acti ve Omalizumab (Xolair) inj 150 mgIndications:Severe persistent asthma without complication 150 mg SC [id number] 09/11/2022 Acti ve Albuterol Sulfate (Proventil) (2.5 MG/3ML) 0.083% inhalation solution 2.5 mgIndications:Severe persistent asthma with (acute) exacerbation 2.5 mg NEBULIZER ONCE PRN 02/02/2023 Acti ve Albuterol Sulfate (Proventil) (2.5 MG/3ML) 0.083% inhalation solution 2.5 mgIndications:Severe persistent asthma with acute exacerbation 2.5 mg NEBULIZER PRN 01/27/2023 01/27/2024 Active documented as of this encounter (statuses as of 02/20/2023) Active Problems Problem Noted Date PTSD (post-traumatic [...] Asthma, severe persistent 07/22/2013 Overview: Admitted to [facility] for acute exacerbation on 10/08/18-10/11/18. Has been admitted monthly since last January. Takes deltasone 10mg daily GERD (gastroesophageal reflux disease) 1 09/22/2012 Overview: Nissin fundoplication x2. Not on meds for GERD at time of NOB Last Assessment & Plan: Continue SLAB PULLER famotidine documented as of this encounter (statuses as of 02/20/2023) Resolved Problems Problem Noted Date Resolved Date [...] getting steroids and breathing treatments. Continuing on SLAB PULLER inhalers and steroid 40mg daily. Pulmonary medicine [...] in to arrhythmia Single liveborn, [facility], delivered by section 10/03/2016 01/07/2017 INFORMATION 09/09/2016 01/07/2017 Overview: Pt needs to see arlin Peña c section in [place] on 10/01/16. RSV (respiratory syncytial virus infection) 08/201601/07/2017 Moderate persistent asthma with acute exacerbati on 08/06/2016 01/07/2017 and not yet delivered in [facility] trimeste r 08/06/2016 01/07/2017 Normocytic anemia 08/06/2016 [...] Dejesus, RN 04/29/2019 History of section complicating pregnan [...] as of this encounter (statuses as of 02/20/2023) Immunizations Name Administration Dates Next Due H1N1 [...] Taken Comments Blood Pressure - - Pulse 88 02/20/2023 10:57 AM EDT Temperature 37.1 C (98.8 F) 02/20/2023 10:57 AM E DT Respiratory Rate 16 02/20/2023 10:57 AM EDT Oxygen Saturation 98% 02/20/2023 10:57 AM EDT Inhaled Oxygen Concentration - - [...] (15 years old or older) No 04/30/20 Cognitive Status Response Date of Assessm ent Because of a physical, menta l, or emotional condition, do you have serious difficulty concentrating, remembering, or making decisions? (5 years old or older No 04/30/2019 documented as of this encounter Plan of Treatment Upcoming Encounters Date Type Specialty Care Team Description 03/02/2023 Office Visit Pulmonary Gibson Cabrera MD [address] [place] [address] 03/23/2023 Nurse Only Ancillary Nurse Elliot Vigil [address] [place] [phone] 03/27/2023 Nurse Only Pulmonary Jt, Nurse Pulmonary [address] [place] [address] Health Maintenance Due Date Last Done Comments COVID-19 Vaccine (#1) 1991 Depression Screening, Annual for Pts 12 and Over 12/16/2019 12/15/2018 Hepatitis B (2 of 2 - CpG 2-dose series) 10/21/2022 09/23/2022 Influenza Vaccine (FLU shot) (#1) 2023 09/23/2022, 05/09/2020, 04/18/2019, Additional history exists Pap Smear 05/10/2026 05/10/2021, 08/2017, 01/08/2018, Additional history exists DTaP,Tdap,and [...] this encounter Medical Devices Implanted Type Area Drier Tender Naphthalene Device Identifier Shelf Expiration Date Model / Serial / Lot Suture Olivia Long - [id number] Implanted:Qty : 1 on 12/16/[address] MD at OR [facility] N/A: Esophagus [employer] 07/15/2024 [facility]-C01-21 3-L / / [id number] documented as of this encounter Administered Medications Active Administered Medications - up to 3 most recent administrations Medication Order MAR Action Action Date Dose Rate Site Omalizumab (Xolair) inj 150 mg 150 mg, Subcutaneous, [id number], First dose on [place] 09/11/22 at 1245, Last dose on [place] 02/12/23 at 1245, For 12 doses, TOTAL DOSE =300 mg Given 02/20/2023 3:23 PM EDT 150 mg Arm Right Upper Given 01/21/2023 11:07 AM EDT 150 mg A rm Left Upper Given 12/19/2022 8:26 AM EDT 150 mg Ar m Right Upper Omalizumab (Xolair) inj 150 mg 150 mg, Subcutaneous, [id number], First dose on [place] 09/11/22 at 1245, Until Discontinued, TOTAL DOSE = 300 mg Given 02/20/2023 3:22 PM EDT 150 mg Arm Left Upper Given 01/21/2023 11:06 AM EDT 150 mg A rm Left Upper Given 12/19/2022 8:25 AM EDT 150 mg Ar m Left [...] the patient have Health Care Power of Agricultural Specialist? No Care Teams National Opelint Analyst Relationship Specialty Start Date End Date Lynette Jorge, DO [address] [place] [address] PCP - General Family Medicine 06/25/16 documented as of this encounter
[2023-07-26] MEDS ORDERED: SODIUM CHLORIDE 0.9% 1,000 ML IV ONE (18:28)
[2023-07-26] MEDS ORDERED: ALBUT/IPRATROP 3MG/0.5MG NEB 3 ML VIAL NEB STA ×3 (18:28→18:31)
[2023-07-26] MEDS ORDERED: methylPREDNISolone 125 MG/2 ML VIAL IV STA (18:28)
[2023-07-26] MEDS ORDERED: LORazepam 0.5 MG TAB PO STA (18:36)
[2023-07-26 18:59] LABS: Base Excess VBG 1.3 mEq/L; HCO3 VBG 25 mmol/L; Oxygen Saturation VBG < 60.0 %; PCO2 VBG 36 mmHg (38-50); PO2 VBG 33 mmHg; pH VBG 7.45 (7.36-7.41)
[2023-07-26 19:07] LABS: Basophils # (auto) 0.06 K/uL (0.00-0.20); Basophils % (auto) 0.6 %; Eosinophils # (auto) 0.02 K/uL (0.00-0.50); Eosinophils % (auto) 0.2 %; Hematocrit (blood only) 35.7 % (37.0-47.0); Hemoglobin 12.5 g/dl (12.0-16.0); Immature Granulocytes # (auto) 0.03 K/uL (0.01-0.20); Immature Granulocytes % (auto) 0.3 %; Lymphocytes # (auto) 0.66 K/uL (1.20-3.40); Lymphocytes % (auto) 6.3 %; Mean Corpuscular Hemoglobin 28.1 pg (25.0-34.0); Mean Corpuscular Volume 80.2 fL (80.0-100.0); Mean Platelet Volume 10.2 fL (9.4-12.4); Monocytes # (auto) 0.85 K/uL (0.11-0.59); Monocytes % (auto) 8.1 %; Neutrophils # (auto) 8.88 K/uL (1.40-6.50); Neutrophils % (auto) 84.5 %; Platelet Count 257 K/uL (130-400); RDW Coefficient of Variation 15.1 % (11.5-14.5); RDW Standard Deviation 44.3 fL (36.4-46.3); Red Blood Count 4.45 M/uL (4.20-5.40)
--- NOTE | 2023-07-26 19:12 | Emergency Department Note ---
History of Present Illness General Chief complaint: Asthma Stated complaint: ASTHMA ATTACK, SOB, CHEST PAIN, CRAMPING Time Seen by Provider: 07/26/23 18:24 History of Present Illness Provider complaint: Shortness of breath asthma 33-year-old G1, P0 presents emergency department at 12 weeks gestation for asthma attack. Patient states she has been wheezing and having difficulty breathing. She reports she has been having abdominal cramping. No vaginal bleeding or discharge. Patient reports history of intubation and ICU admission for her asthma. Home Medications Medication Instructions Recorded Confirmed Type albuterol sulfate 90 mcg/actuation 2 puff inhalation Q4H PRN 01/10/19 07/26/23 History aerosol inhaler Cough/Wheeze or SOB omalizumab 150 mg subcutaneous 150 mg subcut MONTHLY 09/14/20 07/26/23 History solution (Xolair) polyethylene glycol 3350 17 17 g PO QAM PRN Constipation 03/24/21 07/26/23 History gram/dose oral powder (Miralax) loratadine 10 mg tablet (Claritin) 10 mg PO DAILY PRN allergies 04/24/21 07/26/23 History budesonide-formoterol HFA 160 2 puff inhalation BID 07/26/23 07/26/23 History mcg-4.5 mcg/actuation aerosol inhaler (Symbicort) chlorhexidine gluconate 0.12 % 0 ml PO BID 07/26/23 07/26/23 History mouthwash vit no.95-ferrous 1 tab PO DAILY 07/26/23 07/26/23 History fumarate 28 mg-folic acid 800 mcg tablet () progesterone micronized 200 mg 200 mg vaginal HS 07/26/23 07/26/23 History capsule Allergies Allergy/AdvReac Type Severity Reaction Status Date / Time nickel Allergy Intermediate skin Verified 07/26/23 23:07 becomes raw/tender Sulfa (Sulfonamide Allergy Intermediate Hives Verified 07/26/23 23:07 Antibiotics) sulfamethoxazole Allergy Intermediate HIVES Verified 07/26/23 23:07 trimethoprim Allergy Intermediate HIVES Verified 07/26/23 23:07 Past Med/Surg History Medical History Allergic rhinitis GERD (gastroesophageal reflux disease) Severe persistent asthma dependent on systemic steroids with acute exacerbation Vocal cord dysfunction age 16 Demyelinating disease Asthma exacerbation recently admitted @ [facility] 03/24/21--currently on tapered prednisone Migraines Idiopathic intracranial hypertension NO MEDS AT CURRENT FOLLOW WITH [facility] Iron deficiency anemia Asthma inhalers daily/prn, nebulizer prn Surgical History History of dilatation and curettage x2--last 08/26/19 History of section X 2 History of esophagogastroduodenoscopy (EGD) History of Amadou fundoplication X 2- History of bronchoscopy Family History Family/Other Family history of diabetes mellitus Father Asthma Grandmother (Paternal) Asthma Brother Cancer Grandfather (Maternal) Hypertension Brother Liver disease Mother Lupus Sister Family history of PCOS Aunt Spina bifida Other No family history of adverse response to anesthesia Social History Smoking Status: Unknown if ever smoked Second Hand Exposure: No; Do You Dip or Chew Tobacco: No; Hx Alcohol Use: No Hx Substance Use: No Preferred Language: Italian Communication Ability: Effective Medicare Coordinator Required: No Beliefs That Will Affect Care: Spiritual marital status: Current Living Situation: Family Current Living Situation Comment: Lives with children Feels Safe at Home: Yes Assistive Devices: Nebulizer Physical Exam Vital Signs Vital Signs - 24 hr 07/26/23 18:19 07/26/23 18:33 07/26/23 18:40 Temperature 37 C Temperature Source Temporal Artery Scan Pulse Rate 107 H 106 H Pulse Rate [Right Finger] 102 H Respiratory Rate 22 20 Respiratory Effort / Characteristics Non-Labored Spontaneous Spontaneous Respiratory Depth Normal Blood Pressure 84/59 L Blood Pressure Mean 67 Pulse Oximetry 98 97 Oxygen Delivery Method Room Air Room Air Sepsis Recent Fever Within 48 Hours No Sepsis New/Unexplained Change in Mental Status N/A Sepsis Action Taken by Nursing No Action Required 07/26/23 18:45 07/26/23 19:03 07/26/23 19:30 Temperature Temperature Source Pulse Rate 119 H 121 H Pulse Rate [Right Finger] Respiratory Rate 28 H 18 Respiratory Effort / Characteristics Respiratory Depth Blood Pressure 127/71 107/81 Blood Pressure Mean 89 89 Pulse Oximetry 98 94 100 Oxygen Delivery Method Oxymask Nebulizer Room Air Sepsis Recent Fever Within 48 Hours Sepsis New/Unexplained Change in Mental Status Sepsis Action Taken by Nursing 07/26/23 20:16 07/26/23 20:33 07/26/23 21:04 Temperature Temperature Source Pulse Rate 96 H 105 H 104 H Pulse Rate [Right Finger] Respiratory Rate 20 23 15 Respiratory Effort / Characteristics Respiratory Depth Blood Pressure 106/66 93/58 L Blood Pressure Mean 79 69 Pulse Oximetry 96 96 97 Oxygen Delivery Method Room Air Room Air Room Air Sepsis Recent Fever Within 48 Hours Sepsis New/Unexplained Change in Mental Status Sepsis Action Taken by Nursing 07/26/23 21:30 07/26/23 22:00 07/26/23 22:25 Temperature Temperature Source Pulse Rate 101 H 95 H 99 H Pulse Rate [Right Finger] Respiratory Rate 19 22 26 H Respiratory Effort / Characteristics Respiratory Depth Blood Pressure 108/61 94/65 L Blood Pressure Mean 76 74 Pulse Oximetry 96 95 97 Oxygen Delivery Method Room Air Room Air Room Air Sepsis Recent Fever Within 48 Hours Sepsis New/Unexplained Change in Mental Status Sepsis Action Taken by Nursing 07/26/23 22:30 07/26/23 22:30 Temperature Temperature Source Pulse Rate 102 H 99 H Pulse Rate [Right Finger] Respiratory Rate 15 Respiratory Effort / Characteristics Respiratory Depth Blood Pressure 96/67 L Blood Pressure Mean 76 Pulse Oximetry 96 Oxygen Delivery Method Room Air Sepsis Recent Fever Within 48 Hours Sepsis New/Unexplained Change in Mental Status Sepsis Action Taken by Nursing Physical Exam HENT: Exam performed. -Head: Normocephalic and atraumatic. -Right Ear: External ear normal. No mastoid erythema -Left Ear: External ear normal. No mastoid erythema -Mouth/Throat: The oropharynx is clear and moist. No trismus in the jaw. No dental abscesses or uvula swelling. No oropharyngeal exudate or tonsillar abscesses. EYES: Conjunctivae and EOM are normal. Pupils are equal, round, and reactive to light. Right eye exhibits no discharge. Left eye exhibits no discharge. No scleral icterus. NECK: Tachycardic range of motion. Neck supple. No JVD present. No spinous process tenderness present. No carotid bruit present. No rigidity. No tracheal deviation and normal range of motion present. CV: Normal rate, regular rhythm, normal heart sounds and intact distal pulses. There is no peripheral edema. Palpable radial pulses bue. PULM/CHEST: Tachypneic. Scant expiratory wheezes bilaterally. ABD: The abdomen is soft.There is no tenderness. There is no rebound, no guarding MUSC/SKEL: Normal range of motion. There is no peripheral edema, tenderness or deformity. LYMPH: No cervical adenopathy. NEURO: She is alert and oriented to person, place, and time. She has normal strength. No cranial nerve deficit or sensory deficit. Coordination and gait normal. GCS eye subscore is 4. GCS verbal subscore is 5. GCS motor subscore is 6. Cerebellar tests wnl. SKIN: Skin is warm and dry. She is not diaphoretic. PSYCH: She has a normal mood and affect. Behavior is normal. Judgment and thought content normal. Course Course 1823: The patient was evaluated in room C5. A complete history and physical exam was performed Cardiac monitoring: An order was placed for continuous cardiac monitoring. The monitor shows a rate of 100 with rhythm interpreted by mt 2215: Vital signs stable. Imaging within normal limits. Patient is influenza positive. On reassessment patient is still wheezing. Patient states she feels feels short of breath. Patient is still wheezing. Patient has history of intubation secondary to asthma. Given this we thought it be better to admit the patient to the hospitalist service to get more DuoNebs and steroids as well as Tamiflu and watch her overnight. Patient will be admitted to the [facility] hospitalist team. Administered Medications Discontinued Medications Albuterol (Albut/Ipratrop 3mg/0.5mg Neb 3 Ml Vial) 3 ml NEB NOW STA; Protocol Stop: 07/26/23 18:29 Last Admin: 07/26/23 18:35 Dose: 3 ml Documented By: HANNAH Albuterol (Albut/Ipratrop 3mg/0.5mg Neb 3 Ml Vial) 3 ml NEB NOW STA; Protocol Stop: 07/26/23 18:32 Last Admin: 07/26/23 18:36 Dose: 3 ml Documented By: HANNAH Albuterol (Albut/Ipratrop 3mg/0.5mg Neb 3 Ml Vial) 3 ml NEB NOW STA; Protocol Stop: 07/26/23 18:32 Last Admin: 07/26/23 18:36 Dose: 3 ml Documented By: HANNAH Sodium Chloride (Nss) 1,000 mls @ 999 mls/hr IV .Q1H1M ONE Stop: 07/26/23 19:28 Last Infusion: 07/26/23 19:37 Dose: Infused Documented By: Admin: 07/26/23 18:47 Dose: 999 mls/hr Documented By: NGA Acetaminophen (Ofirmev) 1,000 mg in 100 mls @ 400 mls/hr IV NOW STA Stop: 07/26/23 20:06 Last Infusion: 07/26/23 21:06 Dose: Infused Documented By: Admin: 07/26/23 19:56 Dose: 400 mls/hr Documented By: REN Lorazepam (Lorazepam 0.5 Mg Tab) 0.5 mg PO NOW STA Stop: 07/26/23 18:37 Last Admin: 07/26/23 18:53 Dose: Not Given Documented By: NGA Methylprednisolone (Methylprednisolone 125 Mg/2 Ml Vial) 125 mg IV NOW STA Stop: 07/26/23 18:29 Last Admin: 07/26/23 18:38 Dose: 125 mg Documented By: NGA Oseltamivir Phosphate (Oseltamivir Phosphate 75 Mg Cap) 75 mg PO NOW STA; Protocol Stop: 07/26/23 22:11 Last Admin: 07/26/23 22:24 Dose: 75 mg Documented By: ELSA Medical Decision Making Laboratory Data Attestation: I reviewed the patient's lab results. 07/26/23 18:40 07/26/23 18:40 Lab Results 07/26/23 07/26/23 07/26/23 Range/Units 18:40 19:04 19:15 WBC 10.50 (4.8-10.8) K/ul RBC 4.45 (4.20-5.40) M/uL Hgb 12.5 (12.0-16.0) g/dl Hct 35.7 L (37.0-47.0) % MCV 80.2 (80.0-100.0) fL MCH 28.1 (25.0-34.0) pg MCHC 35.0 (32.0-36.0) g/dL RDW Std Deviation 44.3 (36.4-46.3) fL RDW Coeff of Camryn 15.1 H (11.5-14.5) % Plt Count 257 (130-400) K/uL MPV 10.2 (9.4-12.4) fL Immature Gran % (Auto) 0.3 % Neut % (Auto) 84.5 % Lymph % (Auto) 6.3 % [place] % (Auto) 8.1 % Eos % (Auto) 0.2 % Baso % (Auto) 0.6 % Neut # (Auto) 8.88 H (1.40-6.50) K/uL Lymph # (Auto) 0.66 L (1.20-3.40) K/uL [place] # (Auto) 0.85 H (0.11-0.59) K/uL Eos # (Auto) 0.02 (0.00-0.50) K/uL Baso # (Auto) 0.06 (0.00-0.20) K/uL Immature Gran # (Auto) 0.03 (0.01-0.20) K/uL APTT 28 (21-31) Seconds PTT Ratio 1.0 VBG pH 7.45 H (7.36-7.41) VBG pCO2 36 L (38-50) mmHg VBG pO2 33 mmHg VBG HCO3 25 mmol/L VBG O2 Saturation < 60.0 % VBG Base Excess 1.3 mEq/L Sodium 134 L (136-145) mmol/L Potassium 3.2 L (3.5-5.1) mmol/L Chloride 103 (98-107) mmol/L Carbon Dioxide 23 (21-32) mmol/L Anion Gap 8 (3-11) BUN 7 (6-23) mg/dl Creatinine 0.76 (0.6-1.2) mg/dl Est Cr Clr Drug Dosing Not Reportable Est GFR ( Amer) 120.3 ml/min Est GFR (Non-Af Amer) 103.8 ml/min BUN/Creatinine Ratio 9.2 L (10-20) Glucose 84 (70-99(Fasting)) mg/dl Lactate (0.4-2.0) mmol/L Calcium 9.2 (8.6-10.3) mg/dl Magnesium 1.7 (1.7-2.4) mg/dl HCG, Quant 22038 mIU/ml SARS-CoV-2 (PCR) NEGATIVE (Negative) Influenza Type A (PCR) Positive A* (Neg) Influenza Type B (PCR) Negative (Neg) RSV (RT-PCR) Negative (Neg) Blood Type O Positive Antibody Screen NEGATIVE 12/17/23 Range/Units 22:50 WBC (4.8-10.8) K/ul RBC (4.20-5.40) M/uL Hgb (12.0-16.0) g/dl Hct (37.0-47.0) % MCV (80.0-100.0) fL MCH (25.0-34.0) pg MCHC (32.0-36.0) g/dL RDW Std Deviation (36.4-46.3) fL RDW Coeff of Camryn (11.5-14.5) % Plt Count (130-400) K/uL MPV (9.4-12.4) fL Immature Gran % (Auto) % Neut % (Auto) % Lymph % (Auto) % [place] % (Auto) % Eos % (Auto) % Baso % (Auto) % Neut # (Auto) (1.40-6.50) K/uL Lymph # (Auto) (1.20-3.40) K/uL [place] # (Auto) (0.11-0.59) K/uL Eos # (Auto) (0.00-0.50) K/uL Baso # (Auto) (0.00-0.20) K/uL Immature Gran # (Auto) (0.01-0.20) K/uL APTT (21-31) Seconds PTT Ratio VBG pH (7.36-7.41) VBG pCO2 (38-50) mmHg VBG pO2 mmHg VBG HCO3 mmol/L VBG O2 Saturation % VBG Base Excess mEq/L Sodium (136-145) mmol/L Potassium (3.5-5.1) mmol/L Chloride (98-107) mmol/L Carbon Dioxide (21-32) mmol/L Anion Gap (3-11) BUN (6-23) mg/dl Creatinine (0.6-1.2) mg/dl Est Cr Clr Drug Dosing Est GFR ( Amer) ml/min Est GFR (Non-Af Amer) ml/min BUN/Creatinine Ratio (10-20) Glucose (70-99(Fasting)) mg/dl Lactate 2.7 H* (0.4-2.0) mmol/L Calcium (8.6-10.3) mg/dl Magnesium (1.7-2.4) mg/dl HCG, Quant mIU/ml SARS-CoV-2 (PCR) (Negative) Influenza Type A (PCR) (Neg) Influenza Type B (PCR) (Neg) RSV (RT-PCR) (Neg) Blood Type Antibody Screen Imaging Data Attestation: I personally reviewed and interpreted this imaging study as follows: My Impression: Chest x-ray negative. Airway clear. No pneumothorax. No consolidation. No cardiomegaly or cephalization.. No free air under the diaphragm. No fractures of the skeletal structures. Radiologist's Impression: Chest X-Ray 07/26/23 18:28 SINGLE VIEW CHEST CLINICAL HISTORY: Dyspnea. . FINDINGS: An AP, portable, upright chest radiograph is compared to study dated 05/29/2023. The cardiomediastinal silhouette is unremarkable. There is mild bibasilar atelectasis. The lungs and pleural spaces are otherwise clear. No large pleural effusion or pneumothorax is seen. The bony thorax is grossly intact. IMPRESSION: No active disease in the chest. ACT 112: Negative or not required by law. Electronically signed by: Joshua Ambrosio M.D. 07/26/2023 8:19 PM Ultrasound 07/26/23 18:39 Exam(s): US OB 1st TRIMESTER EXAM: US First Trimester , Transabdominal CLINICAL HISTORY: Reason for exam: abd cramping 12 weks . TECHNIQUE: Real-time transabdominal obstetrical ultrasound of the maternal pelvis and a first trimester with image documentation. COMPARISON: No relevant prior studies available. FINDINGS: Gestation: Single viable intrauterine . pole measuring 4.4 cm and yielding an estimated gestational age of 11 weeks 1 day with a heart rate of 199 bpm. The gestational sac appears to just above the patient's prior scar. Placenta/amniotic fluid: Cannot be adequately evaluated due to the early gestational age. Uterus/cervix: 1.8 cm uterine fibroid. Ovaries: Right ovary measures 2.5 x 2.5 x 3.7 cm. Left ovary measures 2.3 x 1.7 x 2.3 cm. Right ovarian corpus and tibial cyst measuring 1.7 cm. Free fluid: No free fluid within the cul-de-sac. Vasculature: There is normal arterial Doppler flow within the ovaries bilaterally. IMPRESSION: Single viable intrauterine with estimated gestational age of 11 weeks 1 day and heart rate of 199 bpm Electronically signed by: Terell Blanc MD 07/26/23 21:48 PM ECG Data Attestation: I personally reviewed and interpreted this ECG as follows: Indication: + SOB/dyspnea Rate (beats per minute): 108 Rhythm: + sinus tachycardia ECG Intervals/blocks: + Normal UT and + Normal QT-c ECG ST segments: + Normal ST segments Additional Comments: QRS 74 MDM Narrative 1824: The patient was evaluated in room C5. A complete history and physical exam was performed Cardiac monitoring: An order was placed for continuous cardiac monitoring. The monitor shows a rate of 100 with rhythm interpreted by me 2215: Vital signs stable. Imaging within normal limits. Patient is influenza positive. On reassessment patient is still wheezing. Patient states she feels feels short of breath. Patient is still wheezing. Patient has history of intubation secondary to asthma. Given this we thought it be better to admit the patient to the hospitalist service to get more DuoNebs and steroids as well as Tamiflu and watch her overnight. Patient will be admitted to the [facility] hospitalist team. Impression & Plan Asthma exacerbation, Influenza Discharge Plan Visit Data Chief Complaint: Asthma Stated Complaint: ASTHMA ATTACK, SOB, CHEST PAIN, CRAMPING ED Provider: Miguel Ludwig Discharge Problem: Asthma exacerbation, Influenza Patient Disposition: Admitted As Inpatient Forms Stand Alone Forms: My [facility] Prescriptions Prescriptions: No Action Xolair 150 mg recon soln 150 mg subcut MONTHLY albuterol sulfate 90 mcg/actuation HFA aerosol inhaler 2 puff inhalation Q4H PRN (Reason: Cough/Wheeze or SOB) polyethylene glycol 3350 [Miralax] 17 gram/dose Powder 17 g PO QAM PRN (Reason: Constipation) progesterone micronized 200 mg capsule 200 mg vaginal HS chlorhexidine gluconate 0.12 % mouthwash 0 ml PO BID PNV cmb#95-ferrous fumarate-FA [] 28 mg iron- 800 mcg Tablet 1 tab PO DAILY Rx Instructions: unknown stength budesonide-formoterol [Symbicort] 160-4.5 mcg/actuation HFA aerosol inhaler 2 puff INHALATION BID loratadine [Claritin] 10 mg Tablet 10 mg PO DAILY PRN (Reason: allergies) Referrals Referrals: Lynette Jorge DO [Primary Care Provider] - Discharge Problem: Asthma exacerbation Qualifiers: Asthma severity: moderate Asthma persistence: persistent Qualified Code(s): J 45.41 - Moderate persistent asthma with (acute) exacerbation
[2023-07-26 19:17] LABS: Anion Gap 8 (3-11); Calcium 9.2 mg/dl (8.6-10.3); Carbon Dioxide 23 mmol/L (21-32); Chloride 103 mmol/L (98-107); Potassium 3.2 mmol/L (3.5-5.1); Sodium 134 mmol/L (136-145)
[2023-07-26 19:22] LABS: BUN Creatinine Ratio 9.2 (10-20); Blood Urea Nitrogen 7 mg/dl (6-23); Est GFR (African American) 120.3 ml/min; Est GFR (Non-African American) 103.8 ml/min; Glucose 84 mg/dl (70-99(Fasting))
[2023-07-26 19:51] LABS: Influenza B virus by PCR Negative (Neg); RSV by PCR Negative (Neg); SARS CoV2 RNA(COVID-19) Ceph NEGATIVE (Negative)
[2023-07-26] MEDS ORDERED: ACETAMINOPHEN 1,000 MG/100 ML VIAL IV STA (19:52)
[2023-07-26 20:18] LABS: Influenza A virus by PCR Positive (Neg)
--- NOTE | 2023-07-26 20:20 | XRay Report ---
SINGLE VIEW CHEST CLINICAL HISTORY: Dyspnea. . FINDINGS: An AP, portable, upright chest radiograph is compared to study dated 05/29/2023. The cardio mediastinal silhouette is unremarkable. There is mild bibasilar atelectasis. The lungs and pleural sp aces are otherwise clear. No large pleural effusion or pneumothorax is seen. The bony thorax is gross ly intact. IMPRESSION: No active disease in the chest. ACT 112: Negative or not required by law. Electronically signed by: Jsohua Ambrosio M.D. 07/26/2023 8:19 PM
--- NOTE | 2023-07-26 21:49 | Ultrasound Report ---
Exam(s): US OB 1st TRIMESTER EXAM: US First Trimester , Transabdominal CLINICAL HISTORY: Reason for exam: abd cramping 12 weks . TECHNIQUE: Real-time transabdominal obstetrical ultrasound of the maternal pelvis and a first trimester with image documentation. COMPARISON: No relevant prior studies available. FINDINGS: Gestation: Single viable intrauterine . pole measuring 4.4 cm and yielding an estimated gestational age of 11 weeks 1 day with a heart rate of 199 bpm. The gestational sac appears to just above the patient's prior scar. Placenta/amniotic fluid: Cannot be adequately evaluated due to the early gestational age. Uterus/cervix: 1.8 cm uterine fibroid. Ovaries: Right ovary measures 2.5 x 2.5 x 3.7 cm. Left ovary measures 2.3 x 1.7 x 2.3 cm. Right ovarian corpus and tibial cyst measuring 1.7 cm. Free fluid: No free fluid within the cul-de-sac. Vasculature: There is normal arterial Doppler flow within the ovaries bilaterally. IMPRESSION: Single viable intrauterine with estimated gestational age of 11 weeks 1 day and heart rate of 199 bpm Electronically signed by: Terell Blanc MD 07/26/23 21:48 PM
[2023-07-26] MEDS ORDERED: OSELTAMIVIR PHOSPHATE 75 MG CAP PO STA (22:10)
[2023-07-26] MEDS ORDERED: MAGNESIUM SULFATE / D5W 1 GM/100 ML BAG IV STA (22:33)
[2023-07-26] MEDS ORDERED: POTASSIUM CHLORIDE CRTAB 20 MEQ TABCR PO STA (22:36)
[2023-07-26 22:52] LABS: Magnesium 1.7 mg/dl (1.7-2.4)
[2023-07-26] MEDS ORDERED: NSS + 20MEQ KCL 20 MEQ/1,000 ML BAG IV STA (22:53)
[2023-07-26 22:59] LABS: Partial Thromboplastin Time 28 Seconds (21-31)
--- NOTE | 2023-07-26 23:26 | History & Physical Report ---
Date of Service July 26, 2023 Assessment & Plan (1) Asthma exacerbation: Plan: Current exacerbation precipitated by influenza Patient unable to receive Xolair currently due to insurance criteria. 12 weeks AOG, recent vaginal spotting last week GERD status post surgery/vocal cord dysfunction, stable symptoms idiopathic intracranial hypertension, currently not on acetazolamide demyelinating disorder on imaging, no clinical evidence of disease as [place] [facility] [place] Hypokalemia secondary to decreased p.o. intake from illness Hyperglycemia likely prediabetes, hemoglobin A1c of 5.8 last year Medical telemetry Solu-Medrol, nebs RTC Tamiflu course Pulmonary consult if without improvement OB consult Re: check, recent vaginal spotting episode Replace potassium Update hemoglobin A1c DVT prophylaxis. SCDs for now re: recent vaginal spotting Full code Text document was generated using [employer] voice recognition software. It may contain grammatical or spelling errors. Kindly contact undersigned for clarification of any documentation item in question. History of Present Illness Chief Complaint: Asthma attack, achy all over Primary Care Provider: Lynette Jorge DO History obtained from patient, family, and records. Medical history significant for bronchial asthma, GERD status post surgery, vocal cord dysfunction, idiopathic intracranial hypertension, demyelinating disorder on imaging, PTSD. Patient currently at 12 weeks age of gestation. Last confinement August 2022 for asthma exacerbation Patient unable to avail of Xolair Rx last month due to insurance criteria. Yesterday, patient noted generalized achiness followed by dry cough, wheezing symptoms, shortness of breath. Chest pain, headache, abdominal pain from coughing. Abdominal cramping with transient vaginal spotting last week. Poor appetite with nausea. Some chills. Not sure about sick contacts. Patient has received COVID-19 vaccination and this years flu vaccine. Symptoms unresponsive to multiple home neb treatments at home. Lowest SBP of 90s documented at the ER. Flu swab positive Solu-Medrol, neb treatment and Tamiflu administered at the ER. 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 Allergies Allergy/AdvReac Type Severity Reaction Status Date / Time nickel Allergy Intermediate skin Verified 07/26/23 23:07 becomes raw/tender Sulfa (Sulfonamide Allergy Intermediate Hives Verified 07/26/23 23:07 Antibiotics) sulfamethoxazole Allergy Intermediate HIVES Verified 07/26/23 23:07 trimethoprim Allergy Intermediate HIVES Verified 07/26/23 23:07 Home Medications Medication Instructions Recorded Confirmed Type albuterol sulfate 90 mcg/actuation 2 puff inhalation Q4H PRN 01/10/19 07/26/23 History aerosol inhaler Cough/Wheeze or SOB omalizumab 150 mg subcutaneous 150 mg subcut MONTHLY 09/14/20 07/26/23 History solution (Xolair) polyethylene glycol 3350 17 17 g PO QAM PRN Constipation 03/24/21 07/26/23 History gram/dose oral powder (Miralax) loratadine 10 mg tablet (Claritin) 10 mg PO DAILY PRN allergies 04/24/21 07/26/23 History budesonide-formoterol HFA 160 2 puff inhalation BID 07/26/23 07/26/23 History mcg-4.5 mcg/actuation aerosol inhaler (Symbicort) chlorhexidine gluconate 0.12 % 0 ml PO BID 07/26/23 07/26/23 History mouthwash vit no.95-ferrous 1 tab PO DAILY 07/26/23 07/26/23 History fumarate 28 mg-folic acid 800 mcg tablet () progesterone micronized 200 mg 200 mg vaginal HS 07/26/23 07/26/23 History capsule Past Med/Surg History Medical History Allergic rhinitis GERD (gastroesophageal reflux disease) Severe persistent asthma dependent on systemic steroids with acute exacerbation Vocal cord dysfunction age 16 Demyelinating disease Asthma exacerbation recently admitted @ [facility] 03/24/21--currently on tapered prednisone Migraines Idiopathic intracranial hypertension NO MEDS AT CURRENT FOLLOW WITH [facility] Iron deficiency anemia Asthma inhalers daily/prn, nebulizer prn Surgical History History of dilatation and curettage x2--last 08/26/19 History of section X 2 History of esophagogastroduodenoscopy (EGD) History of Amadou fundoplication X 2- History of bronchoscopy Family History Family/Other Family history of diabetes mellitus Father Asthma Grandmother (Paternal) Asthma Brother Cancer Grandfather (Maternal) Hypertension Brother Liver disease Mother Lupus Sister Family history of PCOS Aunt Spina bifida Other No family history of adverse response to anesthesia Social History Smoking Status: Former smoker Second Hand Exposure: No; Do You Dip or Chew Tobacco: No; Hx Alcohol Use: No Hx Substance Use: No Preferred Language: Peruvian Communication Ability: Effective Pulp And Paper Tester Required: No Beliefs That Will Affect Care: None marital status: Current Living Situation: Spouse Current Living Situation Comment: Lives with children Feels Safe at Home: Yes Safety Concerns: Feels Safe At This Time Assistive Devices: Nebulizer Review of Systems Review of Systems: As per HPI, all other systems reviewed and negative Physical Exam Physical Exam: GENERAL: Slightly uncomfortable, episodic tachypnea SKIN: Normal color, warm HEENT: [place] palpebral conjunctivae, no ptosis, dry buccal mucosa NECK : Supple, no tenderness CHEST : Decreased breath sounds, scattered expiratory wheezes, no tenderness HEART : Tachycardic, no obvious murmurs ABDOMEN: Some distention, nontender EXTREMITIES : No LE swelling/tenderness, no other conspicuous deformities noted NEUROLOGIC : Coherent, no facial asymmetry, no other gross focality Results & Data Results & Data Vital Signs (Past 12 Hours) Vital Signs Temp Pulse Pulse Resp BP Pulse Ox O2 Del Method 07/26/23 22:30 99 H 15 96/67 L 96 Room Air 07/26/23 22:30 102 H 07/26/23 22:25 99 H 26 H 94/65 L 97 Room Air 07/26/23 22:00 95 H 22 95 Room Air 07/26/23 21:30 101 H 19 108/61 96 Room Air 07/26/23 21:04 104 H 15 93/58 L 97 Room Air 07/26/23 20:33 105 H 23 106/66 96 Room Air 07/26/23 20:16 96 H 20 96 Room Air 07/26/23 19:30 121 H 18 107/81 100 Room Air 07/26/23 19:03 119 H 28 H 127/71 94 Nebulizer 07/26/23 18:45 98 Oxymask 07/26/23 18:40 102 H 20 97 Room Air 07/26/23 18:33 106 H 07/26/23 18:19 37 C 107 H 22 84/59 L 98 Room Air Laboratory Results Laboratory Results WBC 10.50 K/ul (4.8-10.8) 07/26/23 18:40 RBC 4.45 M/uL (4.20-5.40) 07/26/23 18:40 Hgb 12.5 g/dl (12.0-16.0) 07/26/23 18:40 Hct 35.7 % (37.0-47.0) L 07/26/23 18:40 MCV 80.2 fL (80.0-100.0) 07/26/23 18:40 MCH 28.1 pg (25.0-34.0) 07/26/23 18:40 MCHC 35.0 g/dL (32.0-36.0) 07/26/23 18:40 RDW Std Deviation 44.3 fL (36.4-46.3) 07/26/23 18:40 RDW Coeff of Camryn 15.1 % (11.5-14.5) H 07/26/23 18:40 Plt Count 257 K/uL (130-400) 07/26/23 18:40 MPV 10.2 fL (9.4-12.4) 07/26/23 18:40 Immature Gran % (Auto) 0.3 % 07/26/23 18:40 Neut % (Auto) 84.5 % 07/26/23 18:40 Lymph % (Auto) 6.3 % 07/26/23 18:40 [place] % (Auto) 8.1 % 07/26/23 18:40 Eos % (Auto) 0.2 % 07/26/23 18:40 Baso % (Auto) 0.6 % 07/26/23 18:40 Neut # (Auto) 8.88 K/uL (1.40-6.50) H 07/26/23 18:40 Lymph # (Auto) 0.66 K/uL (1.20-3.40) L 07/26/23 18:40 [place] # (Auto) 0.85 K/uL (0.11-0.59) H 07/26/23 18:40 Eos # (Auto) 0.02 K/uL (0.00-0.50) 07/26/23 18:40 Baso # (Auto) 0.06 K/uL (0.00-0.20) 07/26/23 18:40 Immature Gran # (Auto) 0.03 K/uL (0.01-0.20) 07/26/23 18:40 APTT 28 Seconds (21-31) 07/26/23 18:40 PTT Ratio 1.0 07/26/23 18:40 VBG pH 7.45 (7.36-7.41) H 07/26/23 18:40 VBG pCO2 36 mmHg (38-50) L 07/26/23 18:40 VBG pO2 33 mmHg 07/26/23 18:40 VBG HCO3 25 mmol/L 07/26/23 18:40 VBG O2 Saturation < 60.0 % 07/26/23 18:40 VBG Base Excess 1.3 mEq/L 07/26/23 18:40 Sodium 134 mmol/L (136-145) L 07/26/23 18:40 Potassium 3.2 mmol/L (3.5-5.1) L 07/26/23 18:40 Chloride 103 mmol/L (98-107) 07/26/23 18:40 Carbon Dioxide 23 mmol/L (21-32) 07/26/23 18:40 Anion Gap 8 (3-11) 07/26/23 18:40 BUN 7 mg/dl (6-23) 07/26/23 18:40 Creatinine 0.76 mg/dl (0.6-1.2) 07/26/23 18:40 Est Cr Clr Drug Dosing Not Reportable 07/26/23 18:40 Est GFR ( Amer) 120.3 ml/min 07/26/23 18:40 Est GFR (Non-Af Amer) 103.8 ml/min 07/26/23 18:40 BUN/Creatinine Ratio 9.2 (10-20) L 07/26/23 18:40 Glucose 84 mg/dl (70-99(Fasting)) 07/26/23 18:40 Lactate 2.7 mmol/L (0.4-2.0) H* 07/26/23 22:50 Calcium 9.2 mg/dl (8.6-10.3) 07/26/23 18:40 Magnesium 1.7 mg/dl (1.7-2.4) 07/26/23 18:40 HCG, Quant 41226 mIU/ml 07/26/23 18:40 SARS-CoV-2 (PCR) NEGATIVE (Negative) 07/26/23 19:04 Influenza Type A (PCR) Positive (Neg) A* 07/26/23 19:04 Influenza Type B (PCR) Negative (Neg) 07/26/23 19:04 RSV (RT-PCR) Negative (Neg) 07/26/23 19:04 Blood Type O Positive 07/26/23 19:15 Antibody Screen NEGATIVE 07/26/23 19:15 Impressions Chest X-Ray 07/26/23 18:28 SINGLE VIEW CHEST CLINICAL HISTORY: Dyspnea. . FINDINGS: An AP, portable, upright chest radiograph is compared to study dated 05/29/2023. The cardiomediastinal silhouette is unremarkable. There is mild bibasilar atelectasis. The lungs and pleural spaces are otherwise clear. No large pleural effusion or pneumothorax is seen. The bony thorax is grossly intact. IMPRESSION: No active disease in the chest. ACT 112: Negative or not required by law. Electronically signed by: Joshua Ambrosio M.D. 07/26/2023 8:19 PM Ultrasound 07/26/23 18:39 Exam(s): US OB 1st TRIMESTER EXAM: US First Trimester , Transabdominal CLINICAL HISTORY: Reason for exam: abd cramping 12 weks . TECHNIQUE: Real-time transabdominal obstetrical ultrasound of the maternal pelvis and a first trimester with image documentation. COMPARISON: No relevant prior studies available. FINDINGS: Gestation: Single viable intrauterine . pole measuring 4.4 cm and yielding an estimated gestational age of 11 weeks 1 day with a heart rate of 199 bpm. The gestational sac appears to just above the patient's prior scar. Placenta/amniotic fluid: Cannot be adequately evaluated due to the early gestational age. Uterus/cervix: 1.8 cm uterine fibroid. Ovaries: Right ovary measures 2.5 x 2.5 x 3.7 cm. Left ovary measures 2.3 x 1.7 x 2.3 cm. Right ovarian corpus and tibial cyst measuring 1.7 cm. Free fluid: No free fluid within the cul-de-sac. Vasculature: There is normal arterial Doppler flow within the ovaries bilaterally. IMPRESSION: Single viable intrauterine with estimated gestational age of 11 weeks 1 day and heart rate of 199 bpm Electronically signed by: Terell Blanc MD 07/26/23 21:48 PM Diagnostic Findings EKG as per my interpretation : Rate 110, sinus tachycardia, LAD, LAFB, LVH, nonspecific T wave abnormalities (1) Asthma exacerbation Asthma persistence: persistent Asthma severity: moderate Qualified Code(s): J45.41 - Moderate persistent asthma with (acute) exacerbation
[2023-07-26] MEDS ORDERED: XOPENEX/ATROVENT 1.25mg/0.5MG NEB COMBO NEB STA (23:37)
[2023-07-26] MEDS ORDERED: LEVALBUTEROL 1.25 MG/3 ML NEB NEB STA (23:37)
[2023-07-26] MEDS ORDERED: guaiFENesin 600 MG TABCR PO STA (23:37)
[2023-07-26] MEDS ORDERED: MAGNESIUM SULFATE / D5W 1 GM/100 ML BAG IV ONE (23:37)
[2023-07-26] MEDS ORDERED: IPRATROPIUM BROMIDE NEB SOLN 0.02% 2.5 ML VIAL INH STA (23:37)
[2023-07-26] MEDS ORDERED: ACETAMINOPHEN 325 MG TAB PO PRN (23:43)
[2023-07-26] MEDS ORDERED: ONDANSETRON INJ 2 MG/ML 2 ML VIAL IV PRN (23:43)
[2023-07-27] MEDS ORDERED: LORATADINE 10 MG TAB PO PRN (00:25)
[2023-07-27] MEDS ORDERED: POLYETHYLENE (MIRALAX) 17 GM PACK PO PRN (00:25)
[2023-07-27] MEDS ORDERED: LACTATED RINGER'S 1,000 ML IV ONE ×2 (01:38→04:00)
[2023-07-27] MEDS ORDERED: LEVALBUTEROL 1.25 MG/3 ML NEB ONE (01:56)
[2023-07-27] MEDS ORDERED: POTASSIUM CHLORIDE CRTAB 20 MEQ TABCR PO STA (02:31)
[2023-07-27] MEDS: LEVALBUTEROL 1.25 MG/3 ML NEB NEB SCH ×6 (02:40→22:16)
[2023-07-27] MEDS: IPRATROPIUM BROMIDE NEB SOLN 0.02% 2.5 ML VIAL INH SCH ×6 (02:40→22:16)
[2023-07-27 02:58] LABS: Anion Gap 8 (3-11); BUN Creatinine Ratio 11.4 (10-20); Blood Urea Nitrogen 9 mg/dl (6-23); Calcium 8.5 mg/dl (8.6-10.3); Carbon Dioxide 18 mmol/L (21-32); Chloride 107 mmol/L (98-107); Est GFR (African American) 114.8 ml/min; Est GFR (Non-African American) 99.1 ml/min; Glucose 226 mg/dl (70-99(Fasting)); Potassium 3.6 mmol/L (3.5-5.1); Sodium 133 mmol/L (136-145)
[2023-07-27 03:04] LABS: Hematocrit (blood only) 33.4 % (37.0-47.0); Hemoglobin 11.4 g/dl (12.0-16.0); Mean Corpuscular Hemoglobin 27.8 pg (25.0-34.0); Mean Corpuscular Hgb Conc 34.1 g/dL (32.0-36.0); Mean Corpuscular Volume 81.5 fL (80.0-100.0); Mean Platelet Volume 10.3 fL (9.4-12.4); Platelet Count 221 K/uL (130-400); RDW Coefficient of Variation 15.2 % (11.5-14.5); RDW Standard Deviation 45.7 fL (36.4-46.3); White Blood Count 10.21 K/ul (4.8-10.8)
[2023-07-27 03:31] LABS: Basophils # (auto) 0.01 K/uL (0.00-0.20); Basophils % (auto) 0.1 %; Dohle Bodies 1+; Immature Granulocytes # (auto) 0.03 K/uL (0.01-0.20); Immature Granulocytes % (auto) 0.3 %; Lymphocytes # (auto) 0.49 K/uL (1.20-3.40); Lymphocytes % (auto) 4.8 %; Monocytes # (auto) 0.14 K/uL (0.11-0.59); Monocytes % (auto) 1.4 %; Neutrophils # (auto) 9.54 K/uL (1.40-6.50); Neutrophils % (auto) 93.4 %
[2023-07-27] MEDS ORDERED: XOPENEX/ATROVENT 1.25mg/0.5MG NEB COMBO NEB SCH (04:00)
[2023-07-27] MEDS ORDERED: Patient's HEIGHT &/or WEIGHT Needed STA (06:50)
[2023-07-27 07:42] LABS: Estimated Average Glucose 114 mg/dl; Hemoglobin A1C 5.6 % (4.5-5.6)
[2023-07-27] MEDS ORDERED: methylPREDNISolone 40 MG in SYRINGE 0 ML IV SCH (09:00)
[2023-07-27] MEDS: FLUTICASONE/VILANTEROL 100/25MCG 14 PUFFS/INHALER INH SCH (09:35)
[2023-07-27] MEDS: [UNRECOGNIZED DRUG - OTHER] SCH ×3 (09:35→23:19)
[2023-07-27] MEDS: PRENATAL VITAMIN 1 TAB PO SCH (09:36)
[2023-07-27] MEDS: guaiFENesin 600 MG TABCR PO SCH ×2 (09:36→21:31)
[2023-07-27] MEDS: OSELTAMIVIR PHOSPHATE 75 MG CAP PO SCH ×2 (09:36→21:31)
--- NOTE | 2023-07-27 10:04 | Hospitalist Progress Note ---
Date of Service July 27, 2023 Assessment & Plan (1) Asthma exacerbation: Plan: Current exacerbation precipitated by influenza A Patient unable to receive Xolair currently due to insurance criteria -- CXR: no pneumonia -- continue Xopenex/Ipratropium scheduled Solumedrol 40mg IV daily Tamiflu BID -- IS, FV -- continue Breo -- Pulmonology SVC consulted Lactic acidosis -- given IV fluids trending down encouraged to drink more water 12 weeks AOG, recent vaginal spotting last week -- US noted OB consulted GERD status post surgery/vocal cord dysfunction, stable symptoms idiopathic intracranial hypertension, currently not on acetazolamide demyelinating disorder on imaging, no clinical evidence of disease as per outpatient [facility] [place] specialist note Hypokalemia secondary to decreased p.o. intake from illness -- resolved DVT prophylaxis. SCDs for now re: recent vaginal spotting Full code Disposition pending Admission and Anticipated Discharge Date Admission Date: July 26, 2023 Subjective ff up for asthma exacerbation, influenza, etc seen resting in bed, not in distress states she feels somewhat better than last night coughing improving, non productive has slight dyspnea no chest pain, fever/chills, sore throat no other symptoms Review of Systems Review of Systems: all noted and negative except for above Physical Exam Physical Exam: General- oriented x 3, not in distress, speaks in sentences with no effort or accessory muscle use Eyes- anicteric Neck- no JVD Lungs- (+) mild faint scattered wheeze BL Heart- normal rate, regular rhythm; no murmurs Abdomen- normal bowel sounds, nondistended, soft, nontender Extremities- no pretibial edema, no calf tenderness Neuro- alert, oriented x 3; no gross focal neurologic deficits Skin- warm & dry Results & Data Results & Data Vital Signs (Past 12 Hours) Vital Signs Pulse Pulse Resp BP BP Pulse Ox Pulse Ox 07/27/23 07:03 93 H 07/27/23 06:49 87 22 96 07/27/23 06:30 84 21 123/76 97 07/27/23 06:00 96 H 23 128/69 97 07/27/23 05:30 102 H 24 125/63 98 07/27/23 05:00 94 H 17 132/72 98 07/27/23 04:30 103 H 15 115/66 99 07/27/23 04:00 103 H 20 126/75 100 07/27/23 03:30 108 H 26 H 97 07/27/23 03:14 107 H 24 108/56 L 98 07/27/23 03:14 07/27/23 03:14 98 07/27/23 03:00 108 H 21 108/56 L 95 07/27/23 02:49 116 H 20 127/64 97 07/27/23 01:22 100 H 07/26/23 22:30 99 H 15 96/67 L 96 07/26/23 22:30 102 H 07/26/23 22:25 99 H 26 H 94/65 L 97 07/26/23 22:00 95 H 22 95 O2 Del Method O2 Del Method 07/27/23 07:03 07/27/23 06:49 Room Air 07/27/23 06:30 Room Air 07/27/23 06:00 Room Air 07/27/23 05:30 Room Air 07/27/23 05:00 Room Air 07/27/23 04:30 Room Air 07/27/23 04:00 Room Air 07/27/23 03:30 Room Air 07/27/23 03:14 Room Air 07/27/23 03:14 Room Air 07/27/23 03:14 Room Air 07/27/23 03:00 Room Air 07/27/23 02:49 Room Air 07/27/23 01:22 07/26/23 22:30 Room Air 07/26/23 22:30 07/26/23 22:25 Room Air 07/26/23 22:00 Room Air all noted and reviewed including below (1) Asthma exacerbation Asthma persistence: persistent Asthma severity: moderate Qualified Code(s): J45.41 - Moderate persistent asthma with (acute) exacerbation
--- NOTE | 2023-07-27 11:43 | Pulmonary Consultation ---
Date of Consultation July 27, 2023 Assessment & Plan (1) Asthma exacerbation: She appears to have a moderate acute asthma exacerbation secondary to multifactorial reasons including , influenza infection and more importantly the discontinuation of her outpatient Xolair medication. While in the hospital, continue frequent nebulizer treatments. I have added every 2 hours as needed levalbuterol in addition to her every 4 hours neb treatments. I am going to increase methylprednisone to 40 mg twice daily. I do not see evidence of acute bacterial infection. Will defer Tamiflu to the primary team. Will continue to monitor patient along with you. Thank you for the consult. Asthma persistence: unspecified Asthma severity: moderate Qualified Code(s): J45.901 - Unspecified asthma with (acute) exacerbation (2) Influenza: History of Present Illness Reason for Consultation: Asthma exacerbation Attending Physician: Matias Garcia MD History of Present Illness 33-year-old female with a known history of severe persistent asthma followed by [facility] group on Xolair therapy, Symbicort and Incruse who presented to the hospital due to increasing shortness of breath and cough. She tested positive for flu on admission. She notes that she has been having increased muscle cramping and headaches. She also notes that she recently found out that she was 12 weeks . She describes that about 2 weeks ago her Xolair was discontinued as it was no longer covered by her insurance and since that period of time she has had increasing shortness of breath and cough. She notes that she is very compliant with her inhaler regimen. She notes that she has been using her nebulizer and albuterol inhaler very frequently throughout the day and has had trouble catching her breath. She endorses subjective fevers. She endorses chest tightness. She feels mildly improved since her hospital admission. Her labs on admission were significant for neutrophilia. No significant leukocytosis. Lactate was elevated to 3.1 on admission and is trending to 2.5. Chest x-ray 07/26/2023 was unremarkable aside for minimal atelectasis. Allergies Allergy/AdvReac Type Severity Reaction Status Date / Time nickel Allergy Intermediate skin Verified 07/26/23 23:07 becomes raw/tender Sulfa (Sulfonamide Allergy Intermediate Hives Verified 07/26/23 23:07 Antibiotics) sulfamethoxazole Allergy Intermediate HIVES Verified 07/26/23 23:07 trimethoprim Allergy Intermediate HIVES Verified 07/26/23 23:07 Home Medications Medication Instructions Recorded Confirmed Type albuterol sulfate 90 mcg/actuation 2 puff inhalation Q4H PRN 01/10/19 07/26/23 History aerosol inhaler Cough/Wheeze or SOB omalizumab 150 mg subcutaneous 150 mg subcut MONTHLY 09/14/20 07/26/23 History solution (Xolair) polyethylene glycol 3350 17 17 g PO QAM PRN Constipation 03/24/21 07/26/23 History gram/dose oral powder (Miralax) loratadine 10 mg tablet (Claritin) 10 mg PO DAILY PRN allergies 04/24/21 07/26/23 History budesonide-formoterol HFA 160 2 puff inhalation BID 07/26/23 07/26/23 History mcg-4.5 mcg/actuation aerosol inhaler (Symbicort) chlorhexidine gluconate 0.12 % 0 ml PO BID 07/26/23 07/26/23 History mouthwash vit no.95-ferrous 1 tab PO DAILY 07/26/23 07/26/23 History fumarate 28 mg-folic acid 800 mcg tablet () progesterone micronized 200 mg 200 mg vaginal HS 07/26/23 07/26/23 History capsule Patient History Medical History Allergic rhinitis GERD (gastroesophageal reflux disease) Severe persistent asthma dependent on systemic steroids with acute exacerbation Vocal cord dysfunction age 16 Demyelinating disease Asthma exacerbation recently admitted @ [facility] 03/24/21--currently on tapered prednisone Migraines Idiopathic intracranial hypertension NO MEDS AT CURRENT FOLLOW WITH [facility] Iron deficiency anemia Asthma inhalers daily/prn, nebulizer prn Surgical History History of dilatation and curettage x2--last 08/26/19 History of section X 2 History of esophagogastroduodenoscopy (EGD) History of Amadou fundoplication X 2- History of bronchoscopy Family History Family/Other Family history of diabetes mellitus Father Asthma Grandmother (Paternal) Asthma Brother Cancer Grandfather (Maternal) Hypertension Brother Liver disease Mother Lupus Sister Family history of PCOS Aunt Spina bifida Other No family history of adverse response to anesthesia Social History Smoking Status: Former smoker Second Hand Exposure: No; Do You Dip or Chew Tobacco: No; Hx Alcohol Use: No Hx Substance Use: No Preferred Language: Frisian Communication Ability: Effective Relocation Director Required: No Beliefs That Will Affect Care: None marital status: Current Living Situation: Spouse Current Living Situation Comment: Lives with children Feels Safe at Home: Yes Safety Concerns: Feels Safe At This Time Assistive Devices: Nebulizer Review of Systems Review of Systems: All systems reviewed & are unremarkable except as noted in HPI & below Physical Exam Physical Exam: Constitutional: Patient appears to be of their stated age. Patient frequently coughing during exam. She looks lethargic. Eyes: Pupils are equal round and reactive to light. Conjunctivae are normal. Anicteric sclera. Ears nose, mouth and throat: Mallampati class []. Normal posterior oropharynx. Uvula is midline. Neck: Trachea is midline. Visual inspection is normal. Respiratory: Mild prolonged phase of exhalation with mild expiratory wheeze. Cardiovascular: Regular rate and rhythm. No murmurs. No edema. Gastrointestinal: Normal bowel sounds, soft, nontender and nondistended. No hepatosplenomegaly noted. Musculoskeletal: No cyanosis. Patient is able to move all extremities. Strength is 5 out of 5 in the upper and lower extremities. Skin: No rashes, warm dry and intact. Neurologic: No obvious focal neurological deficits seen. Psychiatric: Alert and oriented x3 with a euthymic affect. Results & Data Results & Data Vital Signs (Past 12 Hours) Vital Signs Pulse Pulse Resp BP BP Pulse Ox Pulse Ox 07/27/23 11:23 98 H 20 98 07/27/23 07:03 93 H 07/27/23 06:49 87 22 96 07/27/23 06:30 84 21 123/76 97 07/27/23 06:00 96 H 23 128/69 97 07/27/23 05:30 102 H 24 125/63 98 07/27/23 05:00 94 H 17 132/72 98 07/27/23 04:30 103 H 15 115/66 99 07/27/23 04:00 103 H 20 126/75 100 07/27/23 03:30 108 H 26 H 97 07/27/23 03:14 107 H 24 108/56 L 98 07/27/23 03:14 07/27/23 03:14 98 07/27/23 03:00 108 H 21 108/56 L 95 07/27/23 02:49 116 H 20 127/64 97 07/27/23 01:22 100 H O2 Del Method O2 Del Method 07/27/23 11:23 Room Air 07/27/23 07:03 07/27/23 06:49 Room Air 07/27/23 06:30 Room Air 07/27/23 06:00 Room Air 07/27/23 05:30 Room Air 07/27/23 05:00 Room Air 07/27/23 04:30 Room Air 07/27/23 04:00 Room Air 07/27/23 03:30 Room Air 07/27/23 03:14 Room Air 07/27/23 03:14 Room Air 07/27/23 03:14 Room Air 07/27/23 03:00 Room Air 07/27/23 02:49 Room Air 07/27/23 01:22 PG Care Time/CCT Total # of Minutes Spent Total Time Spent with Patient: Total time spent is greater than 50% in coordination of care (as documented) at patient's floor/unit and/or counseling patient: Coding Level of Care Code 48091 IN/OBS CONSULT LVL 3,45M Diagnoses Asthma exacerbation J45.901 Asthma persistence: unspecified Asthma severity: moderate Influenza J11.1
[2023-07-27] MEDS: Patient's HEIGHT &/or WEIGHT Needed SCH ×3 (16:52→17:49)
[2023-07-27] MEDS: methylPREDNISolone 40 MG in SYRINGE 0 ML IV SCH (21:59)
[2023-07-28] MEDS: LEVALBUTEROL 1.25 MG/3 ML NEB NEB SCH ×6 (02:29→22:30)
[2023-07-28] MEDS: IPRATROPIUM BROMIDE NEB SOLN 0.02% 2.5 ML VIAL INH SCH ×6 (02:29→22:29)
[2023-07-28] MEDS: LEVALBUTEROL HCL 0.63 MG/3 ML NEB NEB PRN ×2 (02:29→07:15)
--- NOTE | 2023-07-28 06:09 | Electrocardiogram Report ---
Test Reason : Blood Pressure : / mmHG Vent. Rate : 108 BPM Atrial Rate : 108 BPM P-R Int : 132 ms QRS Dur : 074 ms QT Int : 346 ms P-R-T Axes : 065 -09 -10 degrees QTc Int : 463 ms Sinus tachycardia Minimal voltage criteria for LVH, may be normal variant ( R in aVL ) Nonspecific T wave abnormality Abnormal ECG When compared with ECG of 05-JUL-2022 14:17, Vent. rate has increased BY 41 BPM Confirmed by Marck Boston ([id number]) on 07/28/2023 6:09:09 AM Referred By: REFERRED SELF Confirmed By:Marck Boston
[2023-07-28] MEDS: [UNRECOGNIZED DRUG - OTHER] SCH ×2 (09:05→16:12)
[2023-07-28] MEDS: PRENATAL VITAMIN 1 TAB PO SCH (09:15)
[2023-07-28] MEDS: OSELTAMIVIR PHOSPHATE 75 MG CAP PO SCH ×2 (09:15→21:16)
[2023-07-28] MEDS: methylPREDNISolone 40 MG in SYRINGE 0 ML IV SCH (09:15)
[2023-07-28] MEDS: guaiFENesin 600 MG TABCR PO SCH ×2 (09:15→21:16)
[2023-07-28] MEDS: FLUTICASONE/VILANTEROL 100/25MCG 14 PUFFS/INHALER INH SCH (09:16)
--- NOTE | 2023-07-28 14:24 | Pulmonology Progress Note ---
Date of Service July 28, 2023 Assessment & Plan (1) Asthma exacerbation: Plan: She appears to have a moderate acute asthma exacerbation secondary to multifactorial reasons including , influenza infection and more importantly the discontinuation of her outpatient Xolair medication. While in the hospital, continue frequent nebulizer treatments. Breo transition to nebulized budesonide and formoterol. I have added every 2 hours as needed levalbuterol in addition to her every 4 hours neb treatments. Her symptoms are improving. Will transition from IV Solu-Medrol to prednisone 40 mg daily. Patient would likely be an excellent candidate for Tezspire as an outpatient. Unfortunately, prescription of Biologics is currently limited by her insurance. Will involve case management. Patient will need close follow-up with her outpatient tire curer in [place]. Additionally, will add montelukast back to her regimen. Patient can likely be discharged home tomorrow. Will need a 2-week prednisone taper. Will continue to monitor patient along with you. Thank you for the consult. Asthma persistence: unspecified Asthma severity: moderate Qualified Code(s): J45.901 - Unspecified asthma with (acute) exacerbation (2) Influenza: Plan: Likely triggering event for asthma. Supportive care. Admission and Anticipated Discharge Date Admission Date: July 26, 2023 Subjective Patient has noticeable improvement in her shortness of breath and cough. Her chest tightness is improved as well. She denies any fevers, chills or night sw eats. Review of Systems Review of Systems: All systems reviewed & are unremarkable except as noted in HPI & below Physical Exam Physical Exam: Constitutional: Patient appears to be of their stated age. Patient frequently coughing during exam. She looks lethargic. Eyes: Pupils are equal round and reactive to light. Conjunctivae are normal. Anicteric sclera. Ears nose, mouth and throat: Mallampati class 2. Normal posterior oropharynx. Uvula is midline. Neck: Trachea is midline. Visual inspection is normal. Respiratory: Mild prolonged phase of exhalation with mild expiratory wheeze. Cardiovascular: Regular rate and rhythm. No murmurs. No edema. Gastrointestinal: Normal bowel sounds, soft, nontender and nondistended. No hepatosplenomegaly noted. Musculoskeletal: No cyanosis. Patient is able to move all extremities. Strength is 5 out of 5 in the upper and lower extremities. Skin: No rashes, warm dry and intact. Neurologic: No obvious focal neurological deficits seen. Psychiatric: Alert and oriented x3 with a euthymic affect. Results & Data Results & Data Vital Signs (Past 12 Hours) Vital Signs Temp Pulse Pulse Resp BP Pulse Ox O2 Del Method 07/28/23 11:33 37.0 C 89 16 129/76 98 Nasal Cannula 07/28/23 11:07 78 20 99 Nasal Cannula 07/28/23 10:49 Room Air 07/28/23 07:51 36.9 C 85 13 135/68 97 Nasal Cannula 07/28/23 07:15 88 17 99 Nasal Cannula 07/28/23 07:13 87 07/28/23 05:46 89 16 98 Room Air 07/28/23 02:29 85 18 97 Room Air 07/28/23 02:25 37 C 82 16 118/74 97 Room Air O2 Flow Rate 07/28/23 11:33 2 07/28/23 11:07 3 07/28/23 10:49 07/28/23 07:51 2 07/28/23 07:15 3 07/28/23 07:13 07/28/23 05:46 07/28/23 02:29 07/28/23 02:25 PG Care Time/CCT Total # of Minutes Spent Total Time Spent with Patient: Total time spent is greater than 50% in coordination of care (as documented) at patient's floor/unit and/or counseling patient: Coding Level of Care Code 01998 SUB INP/OBS CARE 2/35MIN Diagnoses Asthma exacerbation J45.901 Asthma persistence: unspecified Asthma severity: moderate Influenza J11.1
--- NOTE | 2023-07-28 14:57 | Hospitalist Progress Note ---
Date of Service July 28, 2023 Assessment & Plan (1) Asthma exacerbation: Plan: Current exacerbation precipitated by influenza A Patient unable to receive Xolair currently due to insurance criteria -- CXR: no pneumonia -- Visitor Services Technician consulted --Improving Breo transition to Perforomist Pulmicort for now Singulair added back to regimen Solu-Medrol transitioned to prednisone 40 mg daily, will need a 2-week prednisone taper --Continue Tamiflu day #2 --Per pulmonology service: Patient would likely be an excellent candidate for Tezspire as an outpatient. Unfortunately, prescription of Biologics is currently limited by her insurance. Will involve case management. Patient will need close follow-up with her outpatient wastewater manager in [place]. Lactic acidosis -- given IV fluids trending down encouraged to drink more water 11 weeks AOG, recent vaginal spotting last week -- US noted --No abdominal cramping, vaginal bleeding since time of admission OB consulted: Consult followed up, as per OB, no monitoring is needed this a ge of gestation and she can follow-up with OB upon discharge GERD status post surgery/vocal cord dysfunction, stable symptoms idiopathic intracranial hypertension, currently not on acetazolamide demyelinating disorder on imaging, no clinical evidence of disease as per outpatient [facility] specialist note Hypokalemia secondary to decreased p.o. intake from illness -- resolved DVT prophylaxis. SCDs for now re: recent vaginal spotting Full code Disposition pending Admission and Anticipated Discharge Date Admission Date: July 26, 2023 Subjective Follow-up for acute asthma exacerbation, influenza infection, etc. Seen resting in bed, comfortable, not in distress 2 L of O2 by nasal cannula in good spirits, smiling States she feels improved today compared to yesterday Breathing is improving, less cough No chest pain, palpitations, dizziness No abdominal pain or cramping, vaginal bleeding No other new symptoms Review of Systems Review of Systems: all noted and negative except for above Physical Exam Physical Exam: General- oriented x 3, not in distress, speaks in sentences with no effort or accessory muscle use Eyes- anicteric Neck- no JVD Lungs-very faint, intermittent wheezing bilaterally Good air entry bilaterally Heart- normal rate, regular rhythm; no murmurs Abdomen- normal bowel sounds, nondistended, soft, nontender Extremities- no pretibial edema, no calf tenderness Neuro- alert, oriented x 3; no gross focal neurologic deficits Skin- warm & dry Results & Data Results & Data Vital Signs (Past 12 Hours) Vital Signs Temp Pulse Pulse Resp BP Pulse Ox O2 Del Method 07/28/23 11:33 37.0 C 89 16 129/76 98 Nasal Cannula 07/28/23 11:07 78 20 99 Nasal Cannula 07/28/23 10:49 Room Air 07/28/23 07:51 36.9 C 85 13 135/68 97 Nasal Cannula 07/28/23 07:15 88 17 99 Nasal Cannula 07/28/23 07:13 87 07/28/23 05:46 89 16 98 Room Air O2 Flow Rate 07/28/23 11:33 2 07/28/23 11:07 3 07/28/23 10:49 07/28/23 07:51 2 07/28/23 07:15 3 07/28/23 07:13 07/28/23 05:46 all noted and reviewed including below (1) Asthma exacerbation Asthma persistence: persistent Asthma severity: moderate Qualified Code(s): J45.41 - Moderate persistent asthma with (acute) exacerbation
[2023-07-28] MEDS: BUDESONIDE 0.5 MG/2 ML VIAL (PULMICORT) NEB SCH (19:23)
[2023-07-28] MEDS: FORMOTEROL 20 MCG/2 ML VIAL NEB SCH (19:23)
[2023-07-28] MEDS ORDERED: MONTELUKAST SODIUM 10 MG TABLET PO SCH (21:00)
[2023-07-29] MEDS: [UNRECOGNIZED DRUG - OTHER] SCH ×2 (00:13→08:17)
[2023-07-29] MEDS: LEVALBUTEROL 1.25 MG/3 ML NEB NEB SCH ×3 (02:02→10:51)
[2023-07-29] MEDS: IPRATROPIUM BROMIDE NEB SOLN 0.02% 2.5 ML VIAL INH SCH ×3 (02:02→10:51)
[2023-07-29] MEDS: FORMOTEROL 20 MCG/2 ML VIAL NEB SCH (07:27)
[2023-07-29] MEDS: BUDESONIDE 0.5 MG/2 ML VIAL (PULMICORT) NEB SCH (07:27)
[2023-07-29] MEDS: OSELTAMIVIR PHOSPHATE 75 MG CAP PO SCH (08:20)
[2023-07-29] MEDS: guaiFENesin 600 MG TABCR PO SCH (08:21)
[2023-07-29] MEDS: PRENATAL VITAMIN 1 TAB PO SCH (08:21)
[2023-07-29] MEDS ORDERED: predniSONE 20 MG TAB PO SCH (09:00)
--- NOTE | 2023-07-29 11:31 | Pulmonology Progress Note ---
Date of Service July 29, 2023 Assessment & Plan (1) Asthma exacerbation: Plan: She appears to have a moderate acute asthma exacerbation secondary to multifactorial reasons including , influenza infection and more importantly the discontinuation of her outpatient Xolair medication. Patient stable for discharge at this time. Recommend prednisone taper as an outpatient. She will need close follow-up with pulmonology and consideration of a new bi ologic such as Tezpsire. She is established with pulmonology in [place]. Additionally, will add montelukast back to her regimen. Thank you for the consult. Asthma persistence: unspecified Asthma severity: moderate Qualified Code(s): J45.901 - Unspecified asthma with (acute) exacerbation (2) Influenza: Plan: Likely triggering event for asthma. Supportive care. Admission and Anticipated Discharge Date Admission Date: July 26, 2023 Subjective She continues to have a nonproductive cough. Shortness of breath has improved significantly. She still has occasional wheezes. She is very eager to go home. She was encouraged to follow-up with her outpatient digital watch assembler. Review of Systems Review of Systems: All systems reviewed & are unremarkable except as noted in HPI & below Physical Exam Physical Exam: Constitutional: Patient appears to be of their stated age. Patient frequently coughing during exam. She looks lethargic. Eyes: Pupils are equal round and reactive to light. Conjunctivae are normal. Anicteric sclera. Ears nose, mouth and throat: Mallampati class 2. Normal posterior oropharynx. Uvula is midline. Neck: Trachea is midline. Visual inspection is normal. Respiratory: Mild prolonged phase of exhalation with mild expiratory wheeze. Cardiovascular: Regular rate and rhythm. No murmurs. No edema. Gastrointestinal: Normal bowel sounds, soft, nontender and nondistended. No hepatosplenomegaly noted. Musculoskeletal: No cyanosis. Patient is able to move all extremities. Strength is 5 out of 5 in the upper and lower extremities. Skin: No rashes, warm dry and intact. Neurologic: No obvious focal neurological deficits seen. Psychiatric: Alert and oriented x3 with a euthymic affect. Results & Data Results & Data Vital Signs (Past 12 Hours) Vital Signs Temp Pulse Pulse Resp BP Pulse Ox O2 Del Method 07/29/23 11:03 36.9 C 90 18 117/77 98 07/29/23 10:51 90 18 98 Nasal Cannula 07/29/23 08:22 Room Air 07/29/23 07:58 36.9 C 65 16 117/77 98 Nasal Cannula 07/29/23 07:31 64 07/29/23 07:30 80 18 98 Nasal Cannula 07/29/23 04:02 37.0 C 81 16 131/74 95 Room Air 07/29/23 02:02 90 18 98 Room Air O2 Flow Rate 07/29/23 11:03 07/29/23 10:51 2 07/29/23 08:22 07/29/23 07:58 2 07/29/23 07:31 07/29/23 07:30 2 07/29/23 04:02 07/29/23 02:02 PG Care Time/CCT Total # of Minutes Spent Total Time Spent with Patient: Total time spent is greater than 50% in coordination of care (as documented) at patient's floor/unit and/or counseling patient: Coding Level of Care Code 05117 SUB INP/OBS CARE 09/03MIN Diagnoses Asthma exacerbation J45.901 Asthma persistence: unspecified Asthma severity: moderate Influenza J11.1
--- NOTE | 2023-07-29 15:54 | Discharge Summary ---
Date of Service July 29, 2023 Admission HPI Per Admitting Provider History obtained from patient, family, and records. Medical history significant for bronchial asthma, GERD status post surgery, vocal cord dysfunction, idiopathic intracranial hypertension, demyelinating disorder on imaging, PTSD. Patient currently at 12 weeks age of gestation. Last confinement August 2022 for asthma exacerbation Patient unable to avail of Xolair Rx last month due to insurance criteria. Yesterday, patient noted generalized achiness followed by dry cough, wheezing symptoms, shortness of breath. Chest pain, headache, abdominal pain from coughing. Abdominal cramping with transient vaginal spotting last week. Poor appetite with nausea. Some chills. Not sure about sick contacts. Patient has received COVID-19 vaccination and this years flu vaccine. Symptoms unresponsive to multiple home neb treatments at home. Lowest SBP of 90s documented at the ER. Flu swab positive Solu-Medrol, neb treatment and Tamiflu administered at the ER. 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 Admission Exam Per Admitting Provider GENERAL: Slightly uncomfortable, episodic tachypnea SKIN: Normal color, warm HEENT: Antler palpebral conjunctivae, no ptosis, dry buccal mucosa NECK : Supple, no tenderness CHEST : Decreased breath sounds, scattered expiratory wheezes, no tenderness HEART : Tachycardic, no obvious murmurs ABDOMEN: Some distention, nontender EXTREMITIES : No LE swelling/tenderness, no other conspicuous deformities noted NEUROLOGIC : Coherent, no facial asymmetry, no other gross focality Principal Diagnosis Asthma exacerbation Influenza A infection Discharge Exam Constitutional: WD/WN, vitals as above, NAD, sitting up in bed, pleasant, conversing easily Respiratory: Occasional wheeze Cardiovascular: RRR, no murmur, no edema Vessels: no JVD or carotid bruit Chest: normal inspection of chest Abdomen: normal bowel sounds, soft, nontender, no hepatosplenomegaly Musculoskeletal: no cyanosis or clubbing, extremities motor strength 5/5 Skin: no rashes, warm and dry normal turgor Neurologic: PERRL, EOMI, accommodation nl, no face palsy, no dysarthria CN's II- XI intact bilaterally and moves all extremities Psychiatric: A+Ox3, euthymic affect Discharge Data Allergies Allergy/AdvReac Type Severity Reaction Status Date / Time nickel Allergy Intermediate skin Verified 07/26/23 23:07 becomes raw/tender Sulfa (Sulfonamide Allergy Intermediate Hives Verified 07/26/23 23:07 Antibiotics) sulfamethoxazole Allergy Intermediate HIVES Verified 07/26/23 23:07 trimethoprim Allergy Intermediate HIVES Verified 07/26/23 23:07 Consultations 07/26/23 22:11 ED Decision to Admit Stat 07/26/23 23:43 Consult Obstetrics Routine 07/27/23 09:06 Consult Pulmonology Routine Ordered Studies 07/26/23 18:39 US OB <= 14 weeks fetus Stat Hospital Course (1) Asthma exacerbation: Patient presented to the ED with shortness of breath. She was found to have influenza A positive. She was admitted to telemetry floor for asthma exacerbation and influenza infection. She was treated with [id number] DuoNebs, IV steroids and inhalers. She was also started on Tamiflu. Pulmonology was consulted for comanagement. During the course of the hospitalization; patient symptoms improved. She was discharged on prednisone taper as recommended by pulmonology, Tamiflu, montelukast and DuoNebs. Patient to follow-up with her primary care doctor. Please note the above document was generated using voice recognition software. It may contain grammatical, syntax or spelling errors. Any formal questions or concerns about the content, text or information contained within the body of this dictation should be directly addressed to the provider for clarification Total Time Total Time Spent Total Time Spent (In Minutes): 35 Total Time Includes: Examination of the Patient, Discharge Planning, Medication Reconciliation, Communication With Other Providers and Other Discharge Plan Discharge Items Patient Disposition: Home - Self-Care Reason For Visit: HYPOTENSION, ASTHMA EXACERBATION Discharge Diagnosis: Asthma exacerbation Influenza A Activity: Resume your previous activity Non-emergency contact: Primary Care Provider Call non-emergency contact if: you have any medication questions and your symptoms worsen Follow-up/Referrals: Lynette Jorge DO [Primary Care Provider] - (Date & Time 08/04/2023 3:00 PM Provider Lynette Jorge DO Department [facility] ) Diet: Regular Addtl Attending Provider Instructions: You were admitted to the hospital due to asthma exacerbation and influenza A infection. For influenza A infection, you are prescribed Tamiflu to be taken twice daily for 3 more days to complete the treatment course. For asthma exacerbation, you were seen by pulmonology during the hospitalization. The following medication are recommended: 1) Prednisone 10 mg tablet. Tapered as follows: Take 40 mg for 3 days, 30 mg for 3 days, 20 mg for 3 days and 10 mg for 3 days. 2) Montelukast 10 mg at night. It can work as an adjunct to decrease the asthma exacerbation frequency. You are also prescribed nebulizer solution to be used every 4-6 hours for the next 3 days. After that, you can use it as needed. An appointment with your primary care doctor will be set up for sometime next week. Pending Studies at Discharge: No Stand-Alone Forms: My [facility], Smoking Cessation Medications and DC Order Prescriptions: New oseltamivir [Tamiflu] 75 mg Capsule 75 mg PO BID 3 Days Qty: 6 0RF montelukast 10 mg Tablet 10 mg PO HS Qty: 30 0RF ipratropium bromide 0.02 % Solution 0.5 mg inhalation Q4R Qty: 75 0RF prednisone 10 mg tablet See Taper PO DAILY Qty: 30 0RF Taper: Taper, Blank 40 mg DAILY for 3 Days 30 mg DAILY for 3 Days 20 mg DAILY for 3 Days 10 mg DAILY for 3 Days levalbuterol HCl 1.25 mg/3 mL solution for nebulization 1.25 mg inhalation Q8H PRN (Reason: shortness of breath or wheezing) Qty: 90 0RF Continued Xolair 150 mg recon soln 150 mg subcut MONTHLY albuterol sulfate 90 mcg/actuation HFA aerosol inhaler 2 puff inhalation Q4H PRN (Reason: Cough/Wheeze or SOB) polyethylene glycol 3350 [Miralax] 17 gram/dose Powder 17 g PO QAM PRN (Reason: Constipation) progesterone micronized 200 mg capsule 200 mg vaginal HS chlorhexidine gluconate 0.12 % mouthwash 0 ml PO BID PNV cmb#[id number] fumarate-FA [] 28 mg iron- 800 mcg Tablet 1 tab PO DAILY Rx Instructions: unknown stength budesonide-formoterol [Symbicort] 160-4.5 mcg/actuation HFA aerosol inhaler 2 puff INHALATION BID loratadine [Claritin] 10 mg Tablet 10 mg PO DAILY PRN (Reason: allergies) Discharge Orders: Discharge Order (Routine); Ordered 07/29/23 Ordered By: Frandy Barragan/Other Patient Handouts: Oseltamivir Oral Capsule, Influenza (Flu) and Admission Data Admit Date/Time: 07/26/23 23:40 Attending Provider: Frandy Gold Admit Provider: Milan Thurston Primary Care Provider: Lynette Jorge Other Providers: Joshua Rizvi; Suzy Lopez; Jaylin Guerrero; Odell Casanova; Rene Sethi; Luis Saeed; Leonardo Gallegos; Tawnya Camargo; Ruma Savage; Harper Mejia; Fanny Okeefe; Deisy Chun; Estefany Buckley; Sonia Mccartney; Win Curiel; Erica Milian; Milan Thurston; Ashu Jacobsen; Matias Garcia Other Interventions: Discharge Summary Assessment (RN) Last Done: 07/29/23 11:03
== END 2023-07-29 11:47 | disposition home or self-care (01) | DRG 202 ==
LOC: ED 18:15 → INTOOBSV 23:40 → EDINP 23:40 → SUATTDRO 23:40 → 2W 07-27 00:25